=== PATIENT | female | born 1975 | race Caucasian/White ===

== ENCOUNTER 2025-06-06 11:01 | Emergency (ER) | payer SELFPAY ==
[2025-06-06 11:04] VITALS: BP 142/94; PULSE 74; TEMP 36.6; O2SAT 100; BMI 44.6
--- NOTE | 2025-06-06 11:04 | ECG_ITS ---
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 Measurements Intervals [place] Rate: 73 P: 52 MI: 181 QRS: 26 QRSD: 88 T: 55 QT: 389 QTc: 431 Interpretive Statements SINUS RHYTHM No previous ECG available for comparison Electronically Signed On 06-08-2025 22:29:15 SUPPOSITORY MOLDING MACHINE OPERATOR by Brenden Herrera M.D. [id number] [email or web address]
--- NOTE | 2025-06-06 11:04 | XR_ITS ---
WS: [id number] XR chest 1V portable [id number] REASON FOR EXAM: cp FINDINGS: The heart and the mediastinum are within normal limits. Calcified granulomatous disease bilaterally. No acute pulmonary parenchymal or pleural abnormality. Bony thorax is intact without significant focal abnormality. XR/XR chest 1V portable [id number] IMPRESSION: No acute chest abnormality.
--- NOTE | 2025-06-06 11:26 | W.ED.CHESTPA ---
HPI - Chest Pain General: Chief Complaint: Chest Pain Stated Complaint: cp, headache Time Seen by Provider: 06/06/25 11:23 Source: patient Mode of arrival: ambulatory Limitations: no limitations History of Present Illness: 50-year-old female states that she started having some chest pain while headache began an hour ago. States that patient's pain is a 8 out of 10. Denies any fevers. States she has been under a lot of stress. She denies any shortness of breath denies any fevers. Related Data Allergies Allergy/AdvReac Type Severity Reaction Status Date / Time azithromycin Allergy Unknown Verified 06/06/25 11:20 duloxetine Allergy Unknown Verified 06/06/25 11:20 erythromycin base Allergy Unknown Verified 06/06/25 11:20 Gadolinium-Containing Allergy Unknown Verified 06/06/25 11:20 Contrast Medi influenza A (H1N1) virus Allergy Unknown Verified 06/06/25 11:20 vaccine [id number] 2008 (From influenza A (H1N1)) Iodinated Contrast Media Allergy Unknown Verified 06/06/25 11:20 lactase Allergy Unknown Verified 06/06/25 11:20 latex Allergy Unknown Verified 06/06/25 11:20 metoclopramide Allergy Unknown Verified 06/06/25 11:20 montelukast Allergy Unknown Verified 06/06/25 11:20 nitroglycerin Allergy Unknown Verified 06/06/25 11:20 NSAIDS (Non-Steroidal Allergy Unknown Verified 06/06/25 11:20 Anti-Inflamma Penicillins Allergy Unknown Verified 06/06/25 11:20 prochlorperazine Allergy Unknown Verified 06/06/25 11:20 shellfish derived Allergy Unknown Verified 06/06/25 11:20 tapentadol Allergy Unknown Verified 06/06/25 11:20 Review of Systems Card: Reports: chest pain Physical Exam Const: COMMON NORMALS: no acute distress, patient oriented x3 and healthy appearing HENMT: COMMON NORMALS: normocephalic and atraumatic HEAD & SCALP: normocephalic and atraumatic Eye: COMMON NORMALS: Equal, round and reactive pupils present and EOMs intact bilaterally PUPIL: Yes Equal, round and reactive pupils present Neck/C-Spine: COMMON NORMALS: full ROM and supple Chest: COMMONS NORMALS: normal inspection of the chest and normal palpation of entire chest wall Resp: COMMON NORMALS: normal respiratory effort, No retractions, No use of accessory muscles and clear to auscultation bilaterally AUSCULTATION: clear to auscultation bilaterally Cardio: COMMON NORMALS: regular rate, regular rhythm and No murmurs present (Cardio) RATE: regular rate RHYTHM: regular rhythm GI: COMMON NORMALS: Normal to inspection, nondistended, normoactive bowel sounds present, Soft to palpation, non-tender and no masses PALPATION: Yes Soft to palpation Extremity: COMMON NORMALS: normal to inspection and full ROM Neuro: COMMON NORMALS: patient oriented x3, moves all extremities and no focal motor deficits Psych: COMMON NORMALS: mental status grossly normal, Normal thought process present and cooperative THOUGHT PROCESS: Normal thought process present Skin: COMMON NORMALS: no rashes or lesions noted and no wounds GENERAL SKIN EXAM: no rashes or lesions noted Course Vital Signs: Vital signs: Vital Signs Temperature 97.8 F 06/06/25 11:04 Pulse Rate 74 06/06/25 11:04 Blood Pressure 142/94 06/06/25 11:04 Pulse Oximetry 100 06/06/25 11:04 Oxygen Delivery Me thod Room Air 06/06/25 11:04 MDM - Chest Pain Medical Decision Making Patient presents here with chest pain differential includes ACS, pneumonia, pneumothorax, aortic dissection. Chest x-ray here was interpreted by me showed no acute abnormalities. Her troponins here have been negative and so is her EKGs. Her pain is very atypical in nature she has been under a lot of stress and is currently homeless. Her pain here has resolved. I did go over all these findings with her she is stable for discharge we will discharge her to the crisis stabilization unit. EKG interpreted by me at 1110 normal sinus rhythm heart rate [address] elevation QRS 88 QTc 415 Second EKG interpreted by me at 1256 normal sinus rhythm heart rate [address] elevation QRS 74 QTc 418 Medical Records I reviewed the patient's medical records. Lab Data I reviewed the patient's lab results. 06/06/25 11:31 06/06/25 11:31 Radiology Impressions Chest X-Ray 06/06/25 11:04 IMPRESSION: No acute chest abnormality. Laboratory Results WBC 9.09 10^3/uL (3.29-11.43) 06/06/25 11:31 RBC 5.18 10^6/uL (3.85-5.65) 06/06/25 11:31 Hgb 14.20 g/dL (11.27-16.99) 06/06/25 11:31 Hct 44.4 % (36-47) 06/06/25 11:31 MCV 85.7 fl (85-98) 06/06/25 11:31 MCH 27.4 pg (27-33) 06/06/25 11:31 MCHC 32.0 g/dL (30-55) 06/06/25 11:31 RDW 14.4 % (12.1-15.1) 06/06/25 11:31 Plt Count 298 10^3/cmm (157-399) 06/06/25 11:31 MPV 9.2 fL (7.4-10.4) 06/06/25 11:31 Neut % (Auto) 76.2 % 06/06/25 11:31 Lymph % (Auto) 16.4 % 06/06/25 11:31 Pine % (Auto) 5.4 % 06/06/25 11:31 Eos % (Auto) 1.2 % 06/06/25 11:31 Baso % (Auto) 0.6 % 06/06/25 11:31 Neut # (Auto) 6.93 10^3/uL (1.8-7.7) 06/06/25 11:31 Lymph # (Auto) 1.5 10^3/uL (0.8-4.8) 06/06/25 11:31 Pine # (Auto) 0.5 10^3/uL (0.2-0.9) 06/06/25 11:31 Eos # (Auto) 0.1 10^3/uL (0.0-0.8) 06/06/25 11:31 Baso # (Auto) 0.1 10^3/uL (0.0-0.1) 06/06/25 11:31 Nucleated RBC % (auto) 0 % 06/06/25 11:31 Nucleated RBCs # 0.0 /100WBC 06/06/25 11:31 PT 13.20 SECONDS (12.1-14.9) 06/06/25 11:31 INR 0.93 (0.8-1.2) 06/06/25 11:31 Sodium 138 mmol/L (136-145) 06/06/25 11:31 Potassium 4.1 mmol/L (3.5-5.1) 06/06/25 11:31 Chloride 104 mmol/L (98-107) 06/06/25 11:31 Carbon Dioxide 25 mmol/L (22-29) 06/06/25 11:31 Anion Gap 13.1 (5-19) 06/06/25 11:31 BUN 10 mg/dL (6-20) 06/06/25 11:31 Creatinine 0.6 mg/dL (0.5-0.9) 06/06/25 11:31 GFR Calculation 106.3 mL/min (90-130) 06/06/25 11:31 Glucose 99 mg/dL (65-115) 06/06/25 11:31 Calculated Osmolality 285 mOsm/kg (285-295) 06/06/25 11:31 Calcium 9.4 mg/dL (8.5-10.5) 06/06/25 11:31 Total Bilirubin 0.4 mg/dL (0.15-1.2) 06/06/25 11:31 AST 15 U/L (0-32) 06/06/25 11:31 ALT 10 U/L (0-33) 06/06/25 11:31 Alkaline Phosphatase 100 U/L (35-105) 06/06/25 11:31 Troponin T Baseline < 6 ng/L (0-10) 06/06/25 11:31 Troponin T 120 Minute < 6.0 ng/L (0-10) 06/06/25 13:22 Delta Troponin T 0 ABS# (0-10) 06/06/25 13:22 Total Protein 7.6 g/dL (6.6-8.7) 06/06/25 11:31 Albumin 4.7 g/dL (3.5-5.2) 06/06/25 11:31 Globulin 2.9 g/dL (1.3-4.6) 06/06/25 11:31 Lipase 43 U/L (13-60) 06/06/25 11:31 All radiology interpretation(s) finalized by discharge Discharge Plan Discharge Patient Disposition: Home Clinical Impression: Atypical chest pain Condition: Stable Discharge Orders: Discharge ED (Routine); Ordered 06/06/25 Ordered By: Mir Multani Discharge Diet: Advance as tolerated Discharge Activity: Resume usual activity Patient Instructions: Chest Pain (ED) Print Language: Algerian Coding Level of Care Code ED 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
[2025-06-06 11:46] LABS: Hematocrit 44.4 % (36-47); Hemoglobin 14.20 g/dL (11.27-16.99); Mean Corpuscular HGB Conc 32.0 g/dL (30-55); Mean Corpuscular Hemoglobin 27.4 pg (27-33); Mean Corpuscular Volume 85.7 fl (85-98); Nucleated Red Blood Cells % 0 %; Platelet Count 298 10^3/cmm (157-399); Red Blood Count 5.18 10^6/uL (3.85-5.65); White Blood Count 9.09 10^3/uL (3.29-11.43)
[2025-06-06] MEDS: ondansetron 2 mg/ML SDV 2 mL 4 MG IVP (11:56)
[2025-06-06] MEDS: morphine 4 mg/mL SDV 1 mL IVP (11:56)
[2025-06-06 12:01] LABS: INR 0.93 (0.8-1.2); Prothrombin Time 13.20 SECONDS (12.1-14.9)
[2025-06-06 12:06] LABS: Troponin(5th) Baseline < 6 ng/L (0-10)
[2025-06-06 12:16] LABS: Alanine Aminotransferase 10 U/L (0-33); Albumin Level 4.7 g/dL (3.5-5.2); Alkaline Phosphatase 100 U/L (35-105); Anion Gap 13.1 (5-19); Aspartate Amino Transferase 15 U/L (0-32); Blood Urea Nitrogen 10 mg/dL (6-20); Calcium 9.4 mg/dL (8.5-10.5); Carbon Dioxide 25 mmol/L (22-29); Chloride 104 mmol/L (98-107); Globulin 2.9 g/dL (1.3-4.6); Glucose 99 mg/dL (65-115); Lipase 43 U/L (13-60); Osmolality Calculated 285 mOsm/kg (285-295); Potassium 4.1 mmol/L (3.5-5.1); Sodium 138 mmol/L (136-145); Total Protein 7.6 g/dL (6.6-8.7)
--- NOTE | 2025-06-06 13:04 | ECG_ITS ---
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 Measurements Intervals [place] Rate: 71 P: 60 MI: 199 QRS: 27 QRSD: 74 T: 44 QT: 395 QTc: 432 Interpretive Statements SINUS RHYTHM Compared to ECG 06/06/2025 11:10:16 No significant changes Electronically Signed On 06-09-2025 18:18:05 MILL REPRESENTATIVE by Janis Ramírez M.D. [email or web address]
[2025-06-06 13:59] VITALS: BP 136/91; PULSE 74; RESP 15; O2SAT 97
[2025-06-06 14:00] VITALS: BP 136/91; PULSE 71; O2SAT 98
== END 2025-06-06 14:09 | disposition home or self-care (01) ==
PROVIDERS: Emergency Provider Emergency Medicine
DX: R07.89 Other chest pain (principal)
CPT/HCPCS: 36415; 71045; 80053; 83690; 84484; 85025; 85610; 93005; 96374; 96375; 99285; J2270; J2405

== ENCOUNTER 2025-06-06 22:09 | Emergency (ER) | payer SELFPAY ==
--- OUTSIDE RECORDS SUMMARY | 2024-04-19 05:20 | XMS_ITS ---
Author Organization [facility] [address] Address [address] [facility] [address] [place] [address] Care Team Providers Care Telephone Lines Repairer Name Role Phone Sunni Ramon Primary Care Provider Benoit Chance [phone] REASON FOR VISIT No Physical Therapy Social History Sex Assigned At : Social History Observation Description Sex Assigned At Female Encounters Encounter Location Date Provider Diagnosis [facility] [address] [facility] [place] [address] 04/19/2024 Benoit Patton Plan Of Treatment No Information Progress Notes * Wily SWANSONOB:1975 (50 yo F)Acc No.[id number]:04/19/2024 Progress Note Patient: Georgia Hong Provider: GIANNI Wilcox :1975 A ge:48 Y S ex:Female Date:04/19/2024 Address:[address] [place], [place] [id number] Pcp:Sunni Ramon Subjective: * Chief Complaints: * N o Physical Therapy Billing Information: * Procedure Codes: * Electronic signature of TRICE Mathis on 06/06/2025 at 11:25 PM EST Sign off status: Pending * Provider: GIANNI Wilcox Date: Generated for Printi ng/Faxing/eTransmitting on: 08/07/2024 11:25 PM EST
--- OUTSIDE RECORDS SUMMARY | 2024-06-16 07:30 | XMS_ITS ---
Author Organization [facility] Address [address] [place] [address] Care Team Providers Care Newspaper Delivery Counselor Name Role Phone Benedicto Talley MD Unavailable Unavailable Migration, Provider Unavailable Unavailable REASON FOR VISIT Follow Up Visit Encounters Encounter Location Date Provider Diagnosis [facility] [address] [place] [address] 06/16/2024 Provider Migration Plan Of Treatment No Information Progress Notes * Georgia ARAGONDOB:[birth year] (50 yo F)Acc No.[id number]:06/16/2024 Progress Notes Patient: Geo godinezGeorgia Provider: Km Frank :1975 A ge:49 Y S ex:Female Date:06/16/2024 Address:[address] [place] [address] Subjective: * Chief Complaints: * F ollow Up Visit * Electronic signature of Prov ider Migration on 06/06/2025 at 11:22 PM EST Sign off status: Pending * Provider: Km to Migration Date: 1 08/17/2023 Generated for Xenia valdez/Fabio/eTransmitting on: 08/07/2024 11:22 PM EST
--- OUTSIDE RECORDS SUMMARY | 2024-07-08 04:10 | XMS_ITS ---
Author Organization [facility] [address] Address [address] [facility] [address] [place] [address] Care Team Providers Care Executive Vice President And Chief Financial Officer Name Role Phone Sunni Ramon Primary Care Provider Benoit Chance [phone] REASON FOR VISIT Pt Personal Reasons Social History Sex Assigned At : Social History Observation Description Sex Assigned At Female Encounters Encounter Location Date Provider Diagnosis [facility] [address] [place] [address] 07/08/2024 Benoit Patton Plan Of Treatment No Information Progress Notes * Wily SWANSONOB:1975 (50 yo F)Acc No.[id number]:07/08/2024 Progress Note Patient: Georgia Hong Provider: GIANNI Wilcox :1975 A ge:49 Y S ex:Female Date:07/08/2024 Address:[address] [place], [place] [phone] Pcp:Sunni Ramon Subjective: * Chief Complaints: * P t Personal Reasons Billing Information: * Procedure Codes: * Electronic signature of TRICE Mathis on 06/06/2025 at 11:26 PM EST Sign off status: Pending * Provider: GIANNI Wilcox Date: 0 07/08/2024 Generated for Printi ng/Faxing/eTransmitting on: 1 08/07/2024 11:26 PM EST
--- OUTSIDE RECORDS SUMMARY | 2024-08-02 05:00 | XMS_ITS ---
Author Organization [facility] Address [address] [place] [address] Care Team Providers Care Retail Field Supervisor Name Role Phone Benedicto Talley MD Unavailable [...] 08/02/2024 Encounters Encounter Location Date Provider Diagnosis [facility] [address] [place] [address] 08/02/2024 Provider Migration Plan Of Treatment No Information Progress Notes * Georgia ARAGONDOB:[birth year] (50 yo F)Acc No.[id number]:08/02/2024 Progress Notes Patient: Geo Georgia godinez Provider: Km Frank :1975 A ge:49 Y S ex:Female Date:08/02/2024 Address:[address] [place], [place] [phone] Subjective: * Chief Complaints: * O ffice Visit Objective: * Vitals: B P: 102/72 mm Hg, HR: 88 /min, Temp: 98.10 F, Oxygen sat %: 99 %, Wt: 253.0000 lbs, Wt-k.76 kg, Ht: 64.00 in, Ht-cm: 162.56 cm, BMI: 43.42 Index. Plan: * Procedure Codes: 3 078F DIAST BP < 80 MM [id number] SYST BP LT 130 MM [id number] BODY MASS INDEX DOCD Billing Information: * Procedure Codes: 3078F DIAST BP < 80 MM HG. 3074F SYST BP LT 130 MM HG. 3008F BODY MASS INDEX DOCD. * Electronic signature of Prov ider Migration on 06/06/2025 at 11:23 PM EST Sign off status: Pending * Provider: Km to Migration Date: 0 08/02/2024 Generated for Xenia valdez/Fabio/Maude on: 1 08/07/2024 11:23 PM EST
--- OUTSIDE RECORDS SUMMARY | 2024-09-06 03:30 | XMS_ITS ---
Author Organization [facility] Address [address] [place] [address] Care Team Providers Care Clinical Rehabilitation Aide Name Role Phone Benedicto Talley MD Unavailable [...] 09/06/2024 Encounters Encounter Location Date Provider Diagnosis [facility] [address] [place] [address] 09/06/2024 Provider Migration Plan Of Treatment No Information Progress Notes * Georgia ARAGONDOB:[birth year] (50 yo F)Acc No.[id number]:09/06/2024 Progress Notes Patient: Geo Georgia godinez Provider: Km to Migration :1975 A ge:49 Y S ex:Female Date:09/06/2024 Address:[address] [place], [place] [phone] Subjective: * Chief Complaints: * F ollow [...] of Prov ider Migration on 06/06/2025 at 11:34 PM EST Sign off status: Pending * Provider: Km to Migration Date: 0 09/06/2024 Generated for Xenia valdez/Fabio/Rolandoitting on: 1 08/07/2024 11:34 PM EST
--- OUTSIDE RECORDS SUMMARY | 2024-10-02 04:45 | XMS_ITS ---
Author Organization Replaced By [facility] are Address [address] [place] [address] Care Team Providers Care Pharmacy Clinical Coordinator Name Role Phone Tristen Trish Sunni Primary Care Provider [phone] Benedicto Talley MD Unavailable Unavailable DR. Benedicto Talley Unavailable [phone] REASON FOR VISIT Walk-in Appointment Vital Signs Temperature 98.40 degrees Fahrenheit 025 Blood pressure systolic 130 mm Hg 10/03/19 25 Blood pressure diastolic 78 mm Hg 025 Heart Rate 85 /min 10/02/2024 Height 64.00 in 10/02/2024 Weight 250.2000 lbs 10/02/2024 BMI 42.94 kg/m2 10/02/2024 Oximetry 99 % 10/02/2024 Height-cm 162.56 cm 10/02/2024 Weight-kg 113.49 kg 10/02/2024 Encounters Encounter Location Date Provider Diagnosis [facility] [address] [address] 10/02/2024 Benedicto Talley Plan Of Treatment No Information Progress Notes * Georgia ARAGONDOB:[birth year] (50 yo F)Acc No.[id number]:10/02/2024 Progress Notes Patient: Geo godinez Georgia Meza Provider: Georgia Talley MD :1975 A ge:49 Y S ex:Female Date:10/02/2024 Address:[address] [place], [place] [phone] Pcp:MRS. Sunni Ramon Subjective: * Chief Complaints: * W alk-in Appointment Objective: * Vitals: B P: 130/78 mm Hg, HR: 85 /min, Temp: 98.40 F, Oxygen sat %: 99 %, Wt: 250.2000 lbs, Wt-k.49 kg, Ht: 64.00 in, Ht-cm: 162.56 cm, BMI: 42.94 Index. * Electronic signature of DR. Benedicto Talley MD on 06/06/2025 at 11:34 PM EST Sign off status: Pending * Provider: Georgia Talley MD Date: 0 10/02/2024 Generated for Xenia valdez/Fabio/Rolandoitting on: 1 08/07/2024 11:34 PM EST
--- OUTSIDE RECORDS SUMMARY | 2024-10-02 04:45 | XMS_ITS ---
Author Organization [facility] Address [address] [place] [address] Care Team Providers Care Technical Support Technician Name Role Phone Benedicto Talley MD Unavailable Unavailable DR. Benedicto Talley Unavailable [phone] REASON FOR VISIT Walk-in Appointment Vital Signs Temperature 98.40 degrees Fahrenheit 025 Blood pressure systolic 130 mm Hg 10/03/19 25 Blood pressure diastolic 78 mm Hg 025 Heart Rate 85 /min 10/02/2024 Height 64.00 in 10/02/2024 Weight 250.2000 lbs 10/02/2024 BMI 42.94 kg/m2 10/02/2024 Oximetry 99 % 10/02/2024 Height-cm 162.56 cm 10/02/2024 Weight-kg 113.49 kg 10/02/2024 Encounters Encounter Location Date Provider Diagnosis [facility] [address] [place] [address] 10/02/2024 Benedicto Talley Plan Of Treatment No Information Progress Notes * Georgia ARAGONDOB:[birth year] (50 yo F)Acc No.[id number]:10/02/2024 Patient: Geo godinez Georgia Meza Provider: Georgia Talley MD :1975 A ge:49 Y S ex:Female Date:10/02/2024 Address:[address] [place], [place] [phone] Subjective: * Chief Complaints: * W alk-in Appointment Objective: * Vitals: B P: 130/78 mm Hg, HR: 85 /min, Temp: 98.40 F, Oxygen sat %: 99 %, Wt: 250.2000 lbs, Wt-k.49 kg, Ht: 64.00 in, Ht-cm: 162.56 cm, BMI: 42.94 Index. * Electronic signature of DR. Benedicto Talley MD on 06/06/2025 at 11:26 PM EST Sign off status: Pending * Provider: Georgia Talley MD Date: 0 10/02/2024 Generated for Xenia valdez/Fabio/Rolandoitting on: 1 08/07/2024 11:26 PM EST
--- OUTSIDE RECORDS SUMMARY | 2024-10-05 03:00 | XMS_ITS ---
Author Organization [facility] are Address [address] [place] [address] Care Team Providers Care Telephone Lines Repairer Name Role Phone MRS. Sunni Ramon Primary Care Provider Benedicto Talley MD Unavailable Unavailable Results Component Value Reference Range Notes BLOOD GLUCOSE-HOME MONITOR ( 19166) Reviewed date:10/05/2024 12:00:00 AM Interpretation: Performing Lab: Notes/Report: BLOOD GLUCOSE-HOME MONITOR 83 NR URINALYSIS W/O MICROSCOPY (8 1002) Reviewed date:10/05/2024 12:00:00 AM Interpretation: Performing [...] Vaccine Route Administration [place] 50758 TDAP IM Intramuscular 10/05/2024 Pending ,Immuniz ationName,' : Tdap (7 years and up) (35358) ,Status,' : Ordered Vital Signs Temperature 98.50 degrees Fahrenheit 025 Blood pressure systolic 120 mm Hg 10/06/19 25 Blood pressure diastolic 80 mm Hg 025 Heart Rate 76 /min 10/05/2024 Height 64.00 in 10/05/2024 Weight 243.6000 lbs 10/05/2024 BMI 41.81 kg/m2 10/05/2024 Oximetry 99 % 10/05/2024 Height-cm 162.56 cm 10/05/2024 Weight-kg 110.50 kg 10/05/2024 Encounters Encounter Location Date Provider Diagnosis [facility] [address] [place] [address] 10/05/2024 Sunni Ramon Plan Of Treatment No Information Progress Notes * Georgia ARAGON JDOB:[birth year] (50 yo F)Acc No.[id number]:10/05/2024 Progress Notes Patient: Georgia Hong Provider: CITLALLI Delgado :1975 A ge:49 Y S ex:Female Date:10/05/2024 Address:[address] [place], [place] [phone] Subjective: * Chief Complaints: * A nnual Physical * Ocular Surgical History: Objective: * Vitals: B P: 120/80 mm Hg, HR: 76 /min, Temp: 98.50 F, Oxygen sat %: 99 %, Wt: 243.6000 lbs, Wt-k.50 kg, Ht: 64.00 in, Ht-cm: 162.56 cm, BMI: 41.81 Index. Vision Examination: Plan: * Treatment: Value Reference Range B LOOD GLUCOSE-HOME MONITOR 83 NR ?LAB: URINALYSIS W/O MICROSCOPY (04784) (Collection Date & Time - 10/05/2024)* Value [...] - URINE SEDIMENT x NR * Immunizations: 08033 TDAP (Route: Intramuscular) (Pending) * Labs: * L ab: BLOOD GLUCOSE-HOME MONITOR (49333) (Collection Date & Time - 10/05/2024) Value Reference Range B LOOD GLUCOSE-HOME MONITOR 83 NR * BLOOD GLUCOSE-HOME MONITOR: AbnormalFlags: N ?Lab: URINALYSIS W/O MICROSCOPY (39036) (Collection Date & Time - 10/05/2024)* Value [...] N * Procedure Codes: 9 0471 IMMUNIZATION [id number] TDAP VACCINE >7 [id number] DIAST BP 80-89 MM [id number] SYST BP LT 130 MM AD4701I BODY MASS INDEX [id number] BRIEF EMOTIONAL/BEHAV ASSMT Billing Information: * Procedure Codes: 12267 IMMUNIZATION ADMIN. 06810 TDAP VACCINE >7 IM. 3079F DIAST BP 80-89 MM HG. 3074F SYST BP LT 130 MM HG. 3008F BODY MASS INDEX DOCD. 71881 BRIEF EMOTIONAL/BEHAV ASSMT. * Electronic signature of MRS. Moeller GIANNI Ramon on 06/06/2025 at 11:29 PM EST Sign off status: Pending * Provider: CITLALLI Delgado Date: 0 10/05/2024 Generated for Xenia valdez/Fabio/Maude on: 1 08/07/2024 11:29 PM EST
--- OUTSIDE RECORDS SUMMARY | 2024-10-05 03:00 | XMS_ITS ---
Author Organization [facility] Address [address] [place] [address] Care Team Providers Care E Commerce Web Developer Name Role Phone Benedicto Talley MD Unavailable Unavailable Migration, Provider Unavailable Unavailable REASON FOR VISIT Annual Physical Immunizations Vaccine [place] [address] Tdap OTH Other/Miscellaneous 10/05/2024 Pending ,ImmunizationName,' : Tdap (7 years and up) (26236) ,Status,' : Ordered Source Location: <Undefined> Vital Signs Temperature 98.50 degrees Fahrenheit 025 Blood pressure systolic 120 mm Hg 10/06/19 25 Blood pressure diastolic 80 mm Hg 025 Heart Rate 76 /min 10/05/2024 Height 64.00 in 10/05/2024 Weight 243.6000 lbs 10/05/2024 BMI 41.81 kg/m2 10/05/2024 Oximetry 99 % 10/05/2024 Height-cm 162.56 cm 10/05/2024 Weight-kg 110.50 kg 10/05/2024 Encounters Encounter Location Date Provider Diagnosis [facility] [address] [place] [address] 10/05/2024 Provider Migration Plan Of Treatment No Information Progress Notes * Georgia ARAGONDOB:[birth year] (50 yo F)Acc No.[id number]:10/05/2024 Progress Notes Patient: Geo Georgia godinez Provider: Km to Migration :1975 A ge:49 Y S ex:Female Date:10/05/2024 Address:[address] [place], [place] [phone] Subjective: * Chief Complaints: * A nnual Physical * Ocular Surgical History: Objective: * Vitals: B P: 120/80 mm Hg, HR: 76 /min, Temp: 98.50 F, Oxygen sat %: 99 %, Wt: 243.6000 lbs, Wt-k.50 kg, Ht: 64.00 in, Ht-cm: 162.56 cm, BMI: 41.81 Index. Vision Examination: Plan: * Immunizations: 58270 Tdap (Route: Other/Miscellaneous) (Pending) * Procedure Codes: 9 0471 IMMUNIZATION [id number] TDAP VACCINE >7 [id number] DIAST BP 80-89 MM CU0788S SYST BP LT 130 MM DH2055C BODY MASS INDEX [id number] BRIEF EMOTIONAL/BEHAV ASSMT Billing Information: * Procedure Codes: 17941 IMMUNIZATION ADMIN. 62081 TDAP VACCINE >7 IM. 3079F DIAST BP 80-89 MM HG. 3074F SYST BP LT 130 MM HG. 3008F BODY MASS INDEX DOCD. 05515 BRIEF EMOTIONAL/BEHAV ASSMT. * Electronic signature of Prov ider Migration on 06/06/2025 at 11:31 PM EST Sign off status: Pending * Provider: Km to Migration Date: 0 10/05/2024 Generated for Xenia valdez/Fabio/Rolandoitting on: 1 08/07/2024 11:31 PM EST
--- OUTSIDE RECORDS SUMMARY | 2024-10-05 04:10 | XMS_ITS ---
Author Organization [facility] Address [address] [facility] [address] [place] [address] Care Team Providers Care Cardiology Nurse Name Role Phone Snuni Ramon Primary Care Provider Benoit Chance [phone] REASON FOR VISIT C Misc Reason Medications [...] Female Encounters Encounter Location Date Provider Diagnosis [facility] [address] [facility] [place] [address] 10/05/2024 Benoit Patton Plan Of Treatment No Information Progress Notes * Wily SWANSONOB:1975 (50 yo F)Acc No.[id number]:10/05/2024 Progress Note Patient: Georgia Hong Provider: GIANNI Wilcox :1975 A ge:49 Y S ex:Female Date:10/05/2024 Address:[address] [place], [place] [phone] Pcp:Snuni Ramon Subjective: * Chief Complaints: * C [...] signature of TRICE Mathis on 06/06/2025 at 01:06 PM EST Sign off status: Pending * Provider: GIANNI Wilcox Date: 0 10/05/2024 Generated for Xenia Munoz/Maude on: 1 08/07/2024 01:06 PM EST
--- OUTSIDE RECORDS SUMMARY | 2024-10-14 04:00 | XMS_ITS ---
Author Organization [facility] are Address [address] [place] [address] Care Team Providers Care Scrap Carrier Name Role Phone MRS. Sunni Ramon Primary Care Provider Benedicto Talley MD Unavailable REASON FOR VISIT Annual Physical Encounters Encounter Location Date Provider Diagnosis [facility] [address] [place] [address] 10/14/2024 Sunni Ramon Plan Of Treatment No Information Progress Notes * SWANSON, [place] JDOB:[birth year] (50 yo F)Acc No.[id number]:10/14/2024 Progress Notes Patient: [place] Hong Provider: CITLALLI Delgado :1975 A ge:49 Y S ex:Female Date:10/14/2024 Address:[address] [place] [address] Subjective: * Chief Complaints: * A nnual Physical * Ocular Surgical History: Objective: Vision Examination: * Electronic signature of MRS. Moeller GIANNI Ramon on 06/06/2025 at 11:34 PM EST Sign off status: Pending * Provider: CITLALLI Delgado Date: 0 10/14/2024 Generated for Xenia valdez/Fabio/eTransmitting on: 1 08/07/2024 11:34 PM EST
--- OUTSIDE RECORDS SUMMARY | 2024-10-14 04:00 | XMS_ITS ---
[facility] Organization [facility] Address [address] [place] [address] Care Team Providers Care Mine Foreman Name Role Phone Benedicto Talley MD Unavailable Unavailable Migration, Provider Unavailable Unavailable REASON FOR VISIT Annual Physical Encounters Encounter Location Date Provider Diagnosis [facility] [address] [place] [address] 10/14/2024 Provider Migration Plan Of Treatment No Information Progress Notes * [place] ARAGONDOB:[birth year] (50 yo F)Acc No.[id number]:10/14/2024 Progress Notes Patient: Geo godinezGeorgia Provider: Km Frank :1975 A ge:49 Y S ex:Female Date:10/14/2024 Address:[address] [place] [address] Subjective: * Chief Complaints: * A nnual Physical * Ocular Surgical History: Objective: Vision Examination: * Electronic signature of Prov ider Migration on 06/06/2025 at 11:31 PM EST Sign off status: Pending * Provider: Km to Migration Date: 0 10/14/2024 Generated for Xenia valdez/Fabio/Maude on: 1 08/07/2024 11:31 PM EST
--- OUTSIDE RECORDS SUMMARY | 2024-11-04 03:00 | XMS_ITS ---
Author Organization [facility] are Address [address] [place] [address] Care Team Providers Care Real Estate Firm Manager Name Role Phone RamonMRS. ирина Sunni Primary [...] 11/04/2024 Encounters Encounter Location Date Provider Diagnosis [facility]placed [facility] [address] [place] [address] 11/04/2024 Sunni Ramon Plan Of Treatment No Information Progress Notes * [place] ARAGONDOB:[birth year] (50 yo F)Acc No.[id number]:11/04/2024 Progress Notes Patient: Geo godinez [place] Susana Provider: CITLALLI Delgado :1975 A ge:49 Y S ex:Female Date:11/04/2024 Address:[address] [place] [phone] Subjective: * Chief Complaints: * F ollow Up Visit Objective: * Vitals: B P: 122/84 mm Hg, HR: 90 /min, Temp: 98.40 F, Oxygen sat %: 97 %, Wt: 239.0000 lbs, Wt-k.41 kg, Ht: 64.00 in, Ht-cm: 162.56 cm, BMI: 41.02 Index. Plan: * Procedure Codes: 3 079F DIAST BP 80-89 MM [id number] SYST BP LT 130 MM [id number] BODY MASS INDEX DOCD Billing Information: * Procedure Codes: 3079F DIAST BP 80-89 MM HG. 3074F SYST BP LT 130 MM HG. 3008F BODY MASS INDEX DOCD. * Electronic signature of GIANNI Porter on 06/06/2025 at 11:29 PM EST Sign off status: Pending * Provider: CITLALLI Delgado Date: 0 11/04/2024 Generated for Xenia valdez/Fabio/Rolandoitting on: 1 08/07/2024 11:29 PM EST
--- OUTSIDE RECORDS SUMMARY | 2025-01-06 03:30 | XMS_ITS ---
Author Organization [facility] are Address [address] [place] [address] Care Team Providers Care Customer Program Manager Name Role Phone MRS. Sunni Ramon Primary Care Provider Benedicto Talley MD Unavailable REASON FOR VISIT Follow Up Visit Encounters Encounter Location Date Provider Diagnosis [facility] [address] [place] [address] 01/06/2025 Sunni Ramon Plan Of Treatment No Information Progress Notes * SWANSONGeorgiaDOB:[birth year] (50 yo F)Acc No.[id number]:01/06/2025 Progress Notes Patient: Georgia Hong Provider: CITLALLI Delgado :1975 A ge:49 Y S ex:Female Date:01/06/2025 Address:[address] [place], [place] [phone] Subjective: * Chief Complaints: * F ollow Up Visit * Electronic signature of MRS. Moeller GIANNI Ramon on 06/06/2025 at 11:21 PM EST Sign off status: Pending * Provider: CITLALLI Delgado Date: 0 01/06/2025 Generated for Xenia valdez/Fabio/eTransmitting on: 1 08/07/2024 11:21 PM EST
--- OUTSIDE RECORDS SUMMARY | 2025-01-06 03:30 | XMS_ITS ---
Author Organization [facility] Address [address] [place] [address] Care Team Providers Care Inspector Printed Circuit Boards Name Role Phone eBnedicto Talley MD Unavailable Unavailable Migration, Provider Unavailable Unavailable REASON FOR VISIT Follow Up Visit Encounters Encounter Location Date Provider Diagnosis [facility] [address] [place] [address] 01/06/2025 Provider Migration Plan Of Treatment No Information Progress Notes * Georgia ARAGONDOB:[birth year] (50 yo F)Acc No.[id number]:01/06/2025 Progress Notes Patient: Geo godinezGeorgia Provider: Km Frank :1975 A ge:49 Y S ex:Female Date:01/06/2025 Address:[address] [place] [address] Subjective: * Chief Complaints: * F ollow Up Visit * Electronic signature of Prov ider Migration on 06/06/2025 at 11:32 PM EST Sign off status: Pending * Provider: Km to Migration Date: 0 01/06/2025 Generated for Xenia valdez/Fabio/eTransmitting on: 1 08/07/2024 11:32 PM EST
--- OUTSIDE RECORDS SUMMARY | 2025-02-26 03:00 | XMS_ITS ---
Author Organization [facility] are Address [address] [place] [address] Care Team Providers Care Children'S Literature Professor Name Role Phone MRS. Sunni Ramon Primary Care Provider Benedicto Talley MD Unavailable Unavailable Migration, Provider Unavailable Unavailable REASON FOR VISIT EMR-Héctor Encounters Encounter Location Date Provider Diagnosis [facility] [address] [place] [address] 02/26/2025 Provider Migration Plan Of Treatment Medication Medication Name Sig Start Date Stop Date Notes promethazine 6.25mg/5 mL promethazine 6. 25mg/5 mL, 4 Milliliter every 6 hours as needed for nausea # 360, 07/24/2022, No Refill. Inactive oral every 6 hours as needed for nausea; Duration: 5 07/24/2022 3 *Reorder from [employer] for eRx and Interaction Alerts* Pravastatin 20mg pravastatin 20mg, 1 Tablet daily # 30, 09/12/2023, No Refill. Inactive oral daily; Duration: 30 09/12/2023 4 *Reorder from [employer] for eRx and Interaction Alerts* tamsulosin 0.4mg tamsulosin 0.4mg, 1 (one) Capsule daily # 7, 04/03/2022, No Refill. Inactive oral daily; Duration: 7 04/03/2022 3 *Reorder from [employer] for eRx and Interaction Alerts* Ozempic 0.25 mg or 0.5mg (2 mg/3 Ozempic 0.25 mg or 0.5mg (2 mg/3, 0.5 mg weekly # 3, 12/11/2023, No Refill. Inactive subcutaneous weekly; Duration: 28 12/11/2023 4 *Reorder from [facility] for eRx and Interaction Alerts* Ozempic 1 mg/dose(4 mg/3 mL Ozempic 1 mg/dose(4 mg/3 mL, 1 (one) mL weekly # 4, 05/07/2024, No Refill. Inactive subcutaneous weekly; Duration: 30 05/07/2024 5 *Reorder from [facility] for eRx and Interaction Alerts* cyclobenzaprine 5mg cyclobenzaprine 5mg, 1 (one) Tablet three times daily # 15, 04/03/2022, No Refill. Inactive oral three times daily; Duration: 5 04/03/2022 3 *Reorder from [facility] for eRx and Interaction Alerts* cholecalciferol (vitamin D3) 1,250 mcg(50,000 un cholecalciferol (vitamin D3) 1,250 mcg(50,000 un, 1 Capsule every week # 12, 03/11/2024, No Refill. Inactive oral every week; Duration: 84 03/11/2024 4 *Reorder from [facility] for eRx and Interaction Alerts* Lantus Solostar U-100 Insulin 100 unit/mL(3 mL) Lantus Solostar U-100 Insulin 100 unit/mL(3 mL), 20 units at bedtime # 10, 05/07/2024, Ref. x5. Inactive subcutaneous at bedtime; Duration: 30 05/07/2024 5 *Reorder from [facility] for eRx and Interaction Alerts* HumaLOG KwikPen Insulin 100unit/mL HumaLOG KwikPen Insulin 100unit/mL, 5 units subcutaneous three times a day with breakfast, lunch, and dinner # 5, 03/10/2024, Ref. x5. Inactive subcutaneous subcutaneous three times a day with breakfast, lunch, and dinner; Duration: 30 03/10/2024 4 *Reorder from [facility] for eRx and Interaction Alerts* Ozempic 2 mg/dose(8 mg/3 mL Ozempic 2 mg/dose(8 mg/3 mL, 2 (two) milligram SQ once weekly # 9, 03/14/2023, No Refill. Inactive subcutaneous SQ once weekly; Duration: 03/14/2023 3 *Reorder from [employer] for eRx and Interaction Alerts* FreeStyle Philip 2 [place] - Device FreeStyle Philip 2 [place] , 1 (one) Device as directed # 1, 03/19/2021, No Refill. Inactive as directed; Duration: 30 03/19/2021 1 Ozempic (2 MG/DOSE) 8 MG/3ML Solution Pen-injector Ozempic (2 MG/DOSE)( 8MG/3ML Subcutaneous 2 (two) SQ once weekly ) Inactive -Hx Entry Subcutaneous SQ once weekly; Duration: 02/22/2022 FreeStyle Philip 2 Sensor - Miscellaneous FreeStyle Philip 2 Sensor , 1 (one) sensor replace sensor every 14 days # 2, 03/13/2024, Ref. x5. Inactive miscellaneous replace sensor every 14 days; Duration: 28 03/13/2024 4 2 sensors per 28 days Dexcom G5 Lamination Spinner Kit Dexcom G5 Receive r Kit , 1 (one) Device as directed # 1, 11/10/2020, Ref. x11. Inactive as directed; Duration: 14 11/10/2020 1 DX: UNCONTROLLED INSULLIN DEPENDENT DIABETES Guardian Sensor (3) Guardian Sensor (3) , as directed # 90, 11/08/2020, Ref. x3. Inactive as directed; Duration: 11/08/2020 1 1YR SUPPLY Soliqua 100-33 UNT-MCG/ML Solution Pen-injector Soliqua 125-59IYN-WHK/ML, 10 units at bedtime daily for type 2 diabetes # 1, 09/04/2020, Ref. x3. Inactive Subcutaneous at bedtime daily for type 2 diabetes; Duration: 30 09/04/2020 1 Bydureon BCise 2 MG/0.85ML Auto-injector Bydureon BCise 2MG/0.85ML, 1 (one) Auto-injector weekly # 4, 08/30/2020, Ref. x6. Inactive Subcutaneous weekly; Duration: 30 08/30/2020 1 Please void Bydureon Rx, Rx for B-Cise was sent instead Dexcom G5 Mob/G4 Plat Sensor Dexcom G5 Mob/G4 Plat Sensor , 1 (one) SENSOR EVERY 2 WEEKS # 1, 11/10/2020, Ref. x6. Inactive EVERY 2 WEEKS; Duration: 14 11/10/2020 1 BD Pen Needle Micro U/F 32G X 6 MM Miscellaneous BD Pen Needle Micro U/F , 1 (one) needle to be used with Lantus insulin pen daily # 100, 04/11/2021, Ref. x2. Inactive to be used with Lantus insulin pen daily; Duration: 100 04/11/2021 1 Src Refills: 100 Trelegy Ellipta 100-62.5-25 MCG/ACT Aerosol Powder Breath Activated Trelegy Ellipta 100-62.5-25mcg, 1 inhalation daily # 28, 03/10/2024, Ref. x1. Inactive Inhalation daily; Duration: 28 03/10/2024 5 Accu-Chek Guide w/Device Kit Accu-Chek Guide , 1 (one) Kit as directed # 1, 06/19/2020, Ref. x1. Inactive as directed; Duration: 30 06/19/2020 0 Local Order: glucometer, lancets, strips. May substitute for whichever glucometer is cheapest with patient's insurance. Trulicity 1.5 MG/0.5ML Solution Pen-injector Trulicity 1.5mg/0.5 mL, 1 (one) mL once weekly # 2, 07/09/2023, Ref. x1. Inactive Subcutaneous once weekly; Duration: 28 07/09/2023 4 Weeks 1-4: 0.75mg once weekly Weeks 5-8: 1.5mg weekly + Complete Multi 0.267 & 373 MG Therapy Pack + Complete Multi 0.267 & 373MG, use as directed per instructions in pack # 1, 05/21/2019, No Refill. Inactive Oral use as directed per instructions in pack; Duration: 30 05/21/2019 0 Breo Ellipta 100-25 MCG/ACT Aerosol Powder Breath Activated Breo Ellipta 100-25mcg/dose, 1 inhalation daily # 28, 12/11/2023, No Refill. Inactive Inhalation daily; Duration: 28 12/11/2023 4 Trulicity 0.75 MG/0.5ML Solution Pen-injector Trulicity 0.75mg/0.5 mL, 1 (one) Solution Pen-injector once weekly for 4 weeks # 2, 07/09/2023, No Refill. Inactive Subcutaneous once weekly for 4 weeks; Duration: 30 07/09/2023 4 BD Pen Needle Hazel U/F 32G X 4 MM Miscellaneous BD Pen Needle Hazel U/F , 1 (one) Pen needle four times daily with meal time insulin 3x/day and basal insulin at bedtime # 120, 10/13/2020, Ref. x3. Inactive four times daily with meal time insulin 3x/day and basal insulin at bedtime; Duration: 30 10/13/2020 1 Src Refills: 120 Vimovo 500-20 MG Tablet Delayed Release Vimovo 500-20MG, 1 (one) Tablet two times daily as needed # 60, 06/14/2019, Ref. x6. Inactive Oral two times daily as needed; Duration: 30 06/14/2019 0 Bydureon 2MG Bydureon 2MG, 2 (two ) mg once weekly # 4, 08/30/2020, Ref. x5. Inactive Subcutaneous once weekly; Duration: 30 08/30/2020 *Reorder from [employer] for eRx and Interaction Alerts* Lyndsey Allergy 180MG Lyndsey Allergy 18 0MG, 1 (one) Tablet daily # 30, 10/28/2018, Ref. x6. Inactive Oral daily; Duration: 30 10/28/2018 9 *Pick strength-form from [employer] for eRX* metFORMIN HCl ER 500 MG Tablet Extended Release 24 Hour metFORMIN HCl ER 500MG, 1 (one) Tablet once daily in the morning after breakfast # 30, 06/14/2020, Ref. x5. Inactive Oral once daily in the morning after breakfast; Duration: 30 06/14/2020 0 Vitamin B 12 500MCG Vitamin B 12( 500MCG Oral 1 tablet daily ) Inactive -Hx Entry Oral daily; Duration: 0 12/08/2020 *Pick strength-form from [employer] for eRX* Dulera 100-5 MCG/ACT Aerosol Dulera 100-5mcg/actuat, 2 puffs 2 times per day # 13, 12/23/2023, Ref. x5. Inactive Inhalation 2 times per day; Duration: 30 12/23/2023 4 B-6 100MG B-6( 100MG Oral 1 da geoff ) Inactive -Hx Entry Oral daily; Duration: 0 12/24/2020 *Pick strength-form from [employer] for eRX* ZyrTEC-D Allergy & Congestion 5-120MG ZyrTEC-D Allergy & Congestion 5-120MG, 1 (one) Tablet daily # 20, 08/11/2018, No Refill. Inactive Oral daily; Duration: 20 08/11/2018 9 *Pick strength-form from [employer] for eRX* Zoloft 50MG Zoloft 50MG, 1 (one) Tablet daily # 90, 07/10/2019, Ref. x3. Inactive Oral daily; Duration: 90 07/10/2019 0 *Pick strength-form from [employer] for eRX* Ventolin HFA 108 (90 Base) MCG/ACT Aerosol Solution Ventolin HFA 108 (90 Base)MCG/ACT, 2 puffs every 4 hours PRN, 09/21/2018, No Refill. Inactive Inhalation every 4 hours PRN; Duration: 0 09/21/2018 9 Vitamin D3 50 MCG (2000 UT) Tablet Vitamin D3 50 MCG(2000 UT), 1 (one) Tablet daily # 30, 05/21/2019, No Refill. Inactive Oral daily; Duration: 30 05/21/2019 1 Vitamin B Complex - Tablet Vitamin B Complex( Oral 1 tablet daily ) Inactive -Hx Entry Oral daily; Duration: 0 07/05/2019 Zofran 4MG Zofran( 4MG Oral 1 d aily ) Inactive -Hx Entry Oral daily; Duration: 0 07/06/2019 *Reorder from [employer] for eRx and Interaction Alerts* Voltaren 1% Voltaren 1%, 2 (two) gram Apply to the affected joint(s) twice daily as needed for pain # 100, 08/11/2020, No Refill. Inactive External Apply to the affected joint(s) twice daily as needed for pain; Duration: 10 08/11/2020 1 *Pick strength-form from [employer] for eRX* Sucralfate 1 GM/10ML Suspension Sucralfate 1GM/10ML, 10 Milliliter Milliliter four times daily, do not take within 30 mins of other medications # 280, 07/02/2018, Ref. x3. Inactive Oral four times daily, do not take within 30 mins of other medications; Duration: 7 07/02/2018 9 Please discard last prescription for sucralfate. Refill after 1 week for a total duration of 4 weeks unless told otherwise by GI Src Refills: 280 Simvastatin 20 MG Tablet Simvastatin( 20 MG Oral 1 tablet daily ) Inactive -Hx Entry Oral daily; Duration: 0 07/16/2018 Topamax 50 MG Tablet Topamax 50MG, 1 (on e) Tablet daily # 30, 05/21/2019, No Refill. Inactive Oral daily; Duration: 30 05/21/2019 0 Symbicort 160-4.5 MCG/ACT Aerosol Symbicort 160-4.5MCG/ACT, 2 puffs Puff daily # 1, 08/29/2021, No Refill. Inactive Inhalation daily; Duration: 30 08/29/2021 2 traMADol HCl 50 MG Tablet TraMADol HCl 5 0MG, # 0, 07/22/2018, No Refill. Inactive Oral; Duration: 0 07/22/2018 9 Provera 10 MG Tablet Provera( 10MG Oral 1 daily ) Inactive -Hx Entry Oral daily; Duration: 0 12/08/2020 Protonix 40 MG Tablet Delayed Release Protonix( 40MG Oral 1 daily ) Inactive -Hx Entry Oral daily; Duration: 0 08/18/2019 Prevacid 30 MG Capsule Delayed Release Prevacid( 30MG Oral 1 (one) Capsule three times daily ) Inactive -Hx Entry Oral three times daily; Duration: 30 05/21/2019 Promethazine HCl 25 MG Tablet Promethazine HCl 25MG, 1 (one) Tablet every 8 hours as needed for nausea # 21, 12/09/2018, No Refill. Inactive Oral every 8 hours as needed for nausea; Duration: 7 12/09/2018 9 ProAir HFA 108 (90 Base)MCG/ACT ProAir HFA 108 (90 Base)MCG/ACT, 2 (two) Puff every 4-6 hours as needed for wheezing # 1, 11/21/2020, Ref. x2. Inactive Inhalation every 4-6 hours as needed for wheezing; Duration: 30 11/21/2020 1 *Reorder from [employer] for eRx and Interaction Alerts* Phenazopyridine HCl 200MG Phenazopyridin e HCl 200MG, 1 (one) Tablet three times daily as needed for urinary symptoms # 21, 01/04/2019, Ref. x2. Inactive Oral three times daily as needed for urinary symptoms; Duration: 7 01/04/2019 9 *Pick strength-form from [employer] for eRX* Phentermine HCl 37.5 MG Capsule Phentermine HCl 37.5MG, 1 (one) Capsule daily # 30, 03/01/2019, No Refill. Inactive Oral daily; Duration: 30 03/01/2019 9 predniSONE 50 MG Tablet predniSONE 50MG, 1 (one) Tablet daily # 5, 06/21/2021, No Refill. Inactive Oral daily; Duration: 5 06/21/2021 2 Phentermine HCl 37.5 MG Tablet Phentermine HCl 37.5MG, 1 (one) Tablet daily # 30, 12/13/2019, No Refill. Inactive Oral daily; Duration: 30 12/13/2019 27-0.8 MG Tablet 27-0. 8MG, 1 (one) Tablet daily # 90, 06/20/2020, Ref. x1. Inactive Oral daily; Duration: 90 06/20/2020 1 Ondansetron HCl 4 MG Tablet Ondansetron HCl 4MG, 1-2 Tablet three times daily as needed for nausea # 30, 07/10/2021, Ref. x6. Inactive Oral three times daily as needed for nausea; Duration: 5 07/10/2021 2 Ondansetron 8 MG Tablet Disintegrating Ondansetron 8MG, 1 (one) Tablet three times daily, as needed for nausea # 21, 09/22/2020, Ref. x2. Inactive Oral three times daily, as needed for nausea; Duration: 7 09/22/2020 1 Nitrofurantoin Monohyd Macro 100 MG Capsule Nitrofurantoin Monohyd Macro 100MG, 1 (one) Capsule two times daily # 14, 12/25/2018, No Refill. Inactive Oral two times daily; Duration: 7 12/25/2018 9 Omeprazole 20 MG Capsule Delayed Release Omeprazole 20MG, 1 (one) Capsule in the morning # 90, 10/29/2018, Ref. x1. Inactive Oral in the morning; Duration: 90 10/29/2018 0 Nortriptyline HCl 25 MG Capsule Nortriptyline HCl 25MG, 1 Capsule at bedtime # 90, 04/10/2019, Ref. x3. Inactive Oral at bedtime; Duration: 90 04/10/2019 0 Lyrica 50MG Lyrica 50MG, 1 (one) Capsule two times daily # 60, 06/13/2021, No Refill. Inactive Oral two times daily; Duration: 30 06/13/2021 2 *Pick strength-form from [employer] for eRX* medroxyPROGESTERone Acetate 10 MG Tablet medroxyPROGESTERone Acetate 10MG, 2 (two) Tablet three times daily for abnormal bleeding # 42, 10/02/2021, No Refill. Inactive Oral three times daily for abnormal bleeding; Duration: 7 10/02/2021 2 Maxalt 10 MG Tablet Maxalt 10MG, 1 table t daily, 09/27/2018, No Refill. Inactive Oral daily; Duration: 0 09/27/2018 9 metroNIDAZOLE 500 MG Tablet MetroNIDAZOLE 500MG, 1 (one) Tablet three times daily # 30, 03/23/2018, No Refill. Inactive Oral three times daily; Duration: 10 03/23/2018 8 Nitrofurantoin 100MG Nitrofurantoin( 100 MG Oral 2 daily ) Inactive -Hx Entry Oral daily; Duration: 0 07/05/2019 *Pick strength-form from [employer] for eRX* Lisinopril 10 MG Tablet lisinopriL 10mg, 1 Tablet daily # 90, 09/22/2024, Ref. x1. Inactive Oral daily; Duration: 90 09/22/2024 5 LORazepam 0.5 MG Tablet LORazepam 0.5MG, 1 (one) Tablet Tablet po at onset of seizure # 30, 10/25/2019, No Refill. Inactive Oral po at onset of seizure; Duration: 30 10/25/2019 0 Lasix 20 MG Tablet Lasix 20MG, 1 (one) Tablet take 1 daily # 90, 06/07/2022, No Refill. Inactive Oral take 1 daily; Duration: 30 06/07/2022 3 Lisinopril 5 MG Tablet Lisinopril 5MG, 1 tablet daily, 09/13/2018, No Refill. Inactive Oral daily; Duration: 0 09/13/2018 9 Lidocaine Viscous 2% Lidocaine Viscous 2 %, 10 Milliliter gargle and swallow every 3 hours as needed before eating # 240, 07/02/2018, No Refill. Inactive Mouth/Throat gargle and swallow every 3 hours as needed before eating; Duration: 3 07/02/2018 9 *Reorder from [employer] for eRx and Interaction Alerts* Furosemide 20 MG Tablet furosemide 20mg, 1 (one) Tablet once daily # 30, 06/07/2022, Ref. x5. Inactive Oral once daily; Duration: 30 06/07/2022 4 Folic Acid 400MCG Folic Acid( 400MCG O ral 1 tablet daily ) Inactive -Hx Entry Oral daily; Duration: 0 12/08/2020 *Pick strength-form from [employer] for eRX* Gabapentin 300mg gabapentin( 300mg or al 1 three times daily ) Inactive -Hx Entry oral three times daily; Duration: 0 10/02/2024 5 *Pick strength-form from [employer] for eRX* glipiZIDE 5 MG Tablet GlipiZIDE 5MG, 1 t ablet two times daily, 09/13/2018, No Refill. Inactive Oral two times daily; Duration: 0 09/13/2018 9 HumaLOG KwikPen 100 UNIT/ML Solution Pen-injector [employer] KwikPen 100UNIT/ML, 5 units 2-3 times a day with meals # 1, 11/06/2020, Ref. x5. Inactive Subcutaneous 2-3 times a day with meals; Duration: 30 11/06/2020 1 Fluconazole 150 MG Tablet Fluconazole 15 0MG, 1 (one) Tablet one time dose, repeat in 72 hours as needed for yeast infection # 3, 03/19/2021, Ref. x1. Inactive Oral one time dose, repeat in 72 hours as needed for yeast infection; Duration: 9 03/19/2021 1 Flomax 0.4 MG Capsule Flomax 0.4MG, 1 (o ne) Capsule daily as needed for kidney stones # 30, 02/10/2020, Ref. x1. Inactive Oral daily as needed for kidney stones; Duration: 30 02/10/2020 0 Dicyclomine HCl 20 MG Tablet Dicyclomine HCl 20MG, 1 (one) Tablet four times daily, as needed for cramping # 20, 07/31/2018, No Refill. Inactive Oral four times daily, as needed for cramping; Duration: 5 07/31/2018 9 Doxycycline Hyclate 100MG Doxycycline Hy clate 100MG, 1 (one) Tablet b.i.d. # 0, 07/15/2017, No Refill. Inactive Oral b.i.d.; Duration: 10 07/15/2017 8 *Pick strength-form from [facility] for eRX* Doxycycline Hyclate 100 MG Capsule Doxycycline Hyclate 100MG, 1 (one) Capsule two times daily # 14, 11/21/2020, No Refill. Inactive Oral two times daily; Duration: 7 11/21/2020 1 Cetirizine HCl 10 MG Tablet Cetirizine HCl 10MG, 1 (one) Tablet Tablet daily # 30, 07/31/2018, No Refill. Inactive Oral daily; Duration: 30 07/31/2018 9 Cipro 500 MG Tablet Cipro 500MG, 1 (one) Tablet bid # 10, 11/21/2017, No Refill. Inactive Oral bid; Duration: 5 11/21/2017 8 Cyclobenzaprine HCl 5 MG Tablet Cyclobenzaprine HCl 5MG, 1 (one) Tablet three times daily as needed # 30, 04/27/2021, No Refill. Inactive Oral three times daily as needed; Duration: 10 04/27/2021 1 Ciprofloxacin HCl 500 MG Tablet Ciprofloxacin HCl 500MG, 1 (one) Tablet twice daily # 14, 11/30/2018, No Refill. Inactive Oral twice daily; Duration: 7 11/30/2018 9 Depakote 500 MG Tablet Delayed Release Depakote 500MG, 1 (one) Tablet daily # 30, 07/10/2019, No Refill. Inactive Oral daily; Duration: 30 07/10/2019 0 Cefdinir 300 MG Capsule Cefdinir 300MG, 1 (one) Capsule twice a day # 10, 05/09/2022, No Refill. Inactive Oral twice a day; Duration: 5 05/09/2022 2 Benzonatate 200MG Benzonatate 200MG, 1 (one) Capsule every 8 hours prn cough # 21, 06/21/2021, No Refill. Inactive Oral every 8 hours prn cough; Duration: 7 06/21/2021 2 *Pick strength-form from [employer] for eRX* Bromfed DM 2-30-10 MG/5ML Syrup Bromfed DM 30-2-10MG/5ML, 10 Milliliter every 8 hours as needed for congestion and cough # 200, 07/17/2020, No Refill. Inactive Oral every 8 hours as needed for congestion and cough; Duration: 10 07/17/2020 1 Carafate 1 GM Tablet Carafate( 1GM Oral 1 (one) Tablet three times daily ) Inactive -Hx Entry Oral three times daily; Duration: 30 05/21/2019 Iydnueyojk-TQKM-Nzsiqqbe 50-325-40 MG Capsule Sditfhilxb-IITS-Tevfbaca 50-325-40MG, 1 (one) Capsule every 4-6 hours as needed for migraine # 15, 03/29/2019, Ref. x1. Inactive Oral every 4-6 hours as needed for migraine; Duration: 30 03/29/2019 9 Acetaminophen-Codeine 300-30 MG Tablet acetaminophen-codeine( 300-30mg oral 1 every 6 hours as needed ) Inactive -Hx Entry Oral every 6 hours as needed; Duration: 0 10/02/2024 5 Meclizine 12.5mg meclizine 12.5mg, 1 Tablet 2 to 3 times per day as needed for dizziness # 30, 09/06/2024, No Refill. Inactive oral 2 to 3 times per day as needed for dizziness; Duration: 0 09/06/2024 5 *Reorder from [employer] for eRx and Interaction Alerts* Bactrim DS 800-160MG Bactrim DS 800-160M G, 1 (one) Tablet two times daily # 10, 05/14/2021, No Refill. Inactive Oral two times daily; Duration: 5 05/14/2021 *Pick strength-form from [employer] for eRX* Progress Notes * Georgia SWANSONDOB:[birth year] (50 yo F)Acc No.[id number]:02/26/2025 Patient: Georgia CHRISTIE Susana :1975 A ge:49 Y S ex:Female Address:[address] [place] [address], [id number] * Refills Stop Meclizine, 12.5mg, oral, 30, meclizine 12.5mg, 1 Tablet 2 to 3 times per day as needed for dizziness # 30, 09/06/2024, No Refill. Inactive, 2 to 3 times per day as needed for dizziness, 0 Stop Acetaminophen-Codeine Tablet, 300-30 MG, Oral, acetaminophen-codeine( 300- 30mg oral 1 every 6 hours as needed ) Inactive -Hx Entry, every 6 hours as needed, 0 Stop Bactrim DS, 800-160MG, Oral, 10, Bactrim DS 800-160MG, 1 (one) Tablet two times daily # 10, 05/14/2021, No Refill. Inactive, two times daily, 5 Stop Benzonatate, 200MG, Oral, 21, Benzonatate 200MG, 1 (one) Capsule every 8 hours prn cough # 21, 06/21/2021, No Refill. Inactive, every 8 hours prn cough, 7 Stop Bromfed DM Syrup, 2-30-10 MG/5ML, Oral, 200, Bromfed DM 30-2-10MG/5ML, 10 Milliliter every 8 hours as needed for congestion and cough # 200, 07/17/2020, No Refill. Inactive, every 8 hours as needed for congestion and cough, 10 Stop Vlkbdqclff-DIQR-Blhxxhof Capsule, 50-325-40 MG, Oral, 15, Vdgwejqner-ZWYB-Ygrpfyhq 50-325-40MG, 1 (one) Capsule every 4-6 hours as needed for migraine # 15, 03/29/2019, Ref. x1. Inactive, every 4-6 hours as needed for migraine, 30 Stop Carafate Tablet, 1 GM, Oral, Carafate( 1GM Oral 1 (one) Tablet three times daily ) Inactive -Hx Entry, three times daily, 30 Stop Cefdinir Capsule, 300 MG, Oral, 10, Cefdinir 300MG, 1 (one) Capsule twice a day # 10, 05/09/2022, No Refill. Inactive, twice a day, 5 Stop Cetirizine HCl Tablet, 10 MG, Oral, 30, Cetirizine HCl 10MG, 1 (one) Tablet Tablet daily # 30, 07/31/2018, No Refill. Inactive, daily, 30 Stop Cipro Tablet, 500 MG, Oral, 10, Cipro 500MG, 1 (one) Tablet bid # 10, 11/21/2017, No Refill. Inactive, bid, 5 Stop Ciprofloxacin HCl Tablet, 500 MG, Oral, 14, Ciprofloxacin HCl 500MG, 1 (one) Tablet twice daily # 14, 11/25/2017, No Refill. Inactive, twice daily, 7 Stop Ciprofloxacin HCl Tablet, 500 MG, Oral, 14, Ciprofloxacin HCl 500MG, 1 (one) Tablet twice daily # 14, 11/30/2018, No Refill. Inactive, twice daily, 7 Stop Cyclobenzaprine HCl Tablet, 5 MG, Oral, 30, Cyclobenzaprine HCl 5MG, 1 (one) Tablet three times daily as needed # 30, 04/27/2021, No Refill. Inactive, three times daily as needed, 10 Stop Depakote Tablet Delayed Release, 500 MG, Oral, 30, Depakote 500MG, 1 (one) Tablet daily # 30, 07/10/2019, No Refill. Inactive, daily, 30 Stop Dicyclomine HCl Tablet, 20 MG, Oral, 20, Dicyclomine HCl 20MG, 1 (one) Tablet four times daily, as needed for cramping # 20, 07/31/2018, No Refill. Inactive, four times daily, as needed for cramping, 5 Stop Doxycycline Hyclate, 100MG, Oral, 0, Doxycycline Hyclate 100MG, 1 (one) Tablet b.i.d. # 0, 07/15/2017, No Refill. Inactive, b.i.d., 10 Stop Doxycycline Hyclate Capsule, 100 MG, Oral, 14, Doxycycline Hyclate 100MG, 1 (one) Capsule two times daily # 14, 11/21/2020, No Refill. Inactive, two times daily, 7 Stop Flomax Capsule, 0.4 MG, Oral, Flomax( 0.4MG Oral 1 daily ) Inactive -Hx Entry, daily, 0 Stop Flomax Capsule, 0.4 MG, Oral, 30, Flomax 0.4MG, 1 (one) Capsule daily as needed for kidney stones # 30, 02/10/2020, Ref. x1. Inactive, daily as needed for kidney stones, 30 Stop Fluconazole Tablet, 150 MG, Oral, 3, Fluconazole 150MG, 1 (one) Tablet one time dose, repeat in 72 hours as needed for yeast infection # 3, 03/19/2021, Ref. x1. Inactive, one time dose, repeat in 72 hours as needed for yeast infection, 9 Stop Folic Acid, 400MCG, Oral, Folic Acid( 400MCG Oral 1 tablet daily ) Inactive -Hx Entry, daily, 0 Stop Furosemide Tablet, 20 MG, Oral, 30, furosemide 20mg, 1 (one) Tablet once daily # 30, 06/07/2022, Ref. x5. Inactive, once daily, 30 Stop Gabapentin, 300MG, Oral, 180, Gabapentin 300MG, 1 (one) Capsule in AM and before bedtime daily for nerve pain # 180, 03/19/2021, Ref. x1. Inactive, in AM and before bedtime daily for nerve pain, 90 Stop Gabapentin, 300mg, oral, gabapentin( 300mg oral 1 three times daily ) Inactive -Hx Entry, three times daily, 0 Stop glipiZIDE Tablet, 5 MG, Oral, GlipiZIDE 5MG, 1 tablet two times daily, 09/13/2018, No Refill. Inactive, two times daily, 0 Stop HumaLOG KwikPen Solution Pen-injector, 100 UNIT/ML, Subcutaneous, 1, [employer] KwikPen 100UNIT/ML, 5 units 2-3 times a day with meals # 1, 11/06/2020, Ref. x5. Inactive, 2-3 times a day with meals, 30 Stop Lasix Tablet, 20 MG, Oral, 90, Lasix 20MG, 1 (one) Tablet take 1 daily # 90, 06/07/2022, No Refill. Inactive, take 1 daily, 30 Stop Lidocaine Viscous, 2%, Mouth/Throat, 240, Lidocaine Viscous 2%, 10 Milliliter gargle and swallow every 3 hours as needed before eating # 240, 07/02/2018, No Refill. Inactive, gargle and swallow every 3 hours as needed before eating, 3 Stop Lisinopril Tablet, 5 MG, Oral, Lisinopril 5MG, 1 tablet daily, 09/13/2018, No Refill. Inactive, daily, 0 Stop Lisinopril Tablet, 10 MG, Oral, 90, lisinopriL 10mg, 1 Tablet daily # 90, 09/22/2024, Ref. x1. Inactive, daily, 90 Stop LORazepam Tablet, 0.5 MG, Oral, LORazepam( 0.5MG Oral 1 every eight hours, as needed ) Inactive -Hx Entry, every eight hours, as needed, 0 Stop LORazepam Tablet, 0.5 MG, Oral, 30, LORazepam 0.5MG, 1 (one) Tablet Tablet po at onset of seizure # 30, 10/25/2019, No Refill. Inactive, po at onset of seizure, 30 Stop Lyrica, 50MG, Oral, 60, Lyrica 50MG, 1 (one) Capsule two times daily # 60, 06/13/2021, No Refill. Inactive, two times daily, 30 Stop Maxalt Tablet, 10 MG, Oral, Maxalt 10MG, 1 tablet daily, 09/27/2018, No Refill. Inactive, daily, 0 Stop medroxyPROGESTERone Acetate Tablet, 10 MG, Oral, 42, medroxyPROGESTERone Acetate 10MG, 2 (two) Tablet three times daily for abnormal bleeding # 42, 10/02/2021, No Refill. Inactive, three times daily for abnormal bleeding, 7 Stop metroNIDAZOLE Tablet, 500 MG, Oral, 30, MetroNIDAZOLE 500MG, 1 (one) Tablet three times daily # 30, 03/23/2018, No Refill. Inactive, three times daily, 10 Stop Nitrofurantoin, 100MG, Oral, Nitrofurantoin( 100MG Oral 2 daily ) Inactive -Hx Entry, daily, 0 Stop Nitrofurantoin Monohyd Macro Capsule, 100 MG, Oral, 14, Nitrofurantoin Monohyd Macro 100MG, 1 (one) Capsule two times daily # 14, 12/25/2018, No Refill. Inactive, two times daily, 7 Stop Nortriptyline HCl Capsule, 25 MG, Oral, 90, Nortriptyline HCl 25MG, 1 Capsule at bedtime # 90, 04/10/2019, Ref. x3. Inactive, at bedtime, 90 Stop Omeprazole Capsule Delayed Release, 20 MG, Oral, 90, Omeprazole 20MG, 1 (one) Capsule in the morning # 90, 10/29/2018, Ref. x1. Inactive, in the morning, 90 Stop Ondansetron Tablet Disintegrating, 8 MG, Oral, 21, Ondansetron 8MG, 1 (one) Tablet three times daily, as needed for nausea # 21, 09/22/2020, Ref. x2. Inactive, three times daily, as needed for nausea, 7 Stop Ondansetron HCl Tablet, 4 MG, Oral, 30, Ondansetron HCl 4MG, 1-2 Tablet three times daily as needed for nausea # 30, 07/10/2021, Ref. x6. Inactive, three times daily as needed for nausea, 5 Stop Phenazopyridine HCl, 200MG, Oral, 21, Phenazopyridine HCl 200MG, 1 (one) Tablet three times daily as needed for pain # 21, 12/25/2018, No Refill. Inactive, three times daily as needed for pain, 7 Stop Phenazopyridine HCl, 200MG, Oral, 21, Phenazopyridine HCl 200MG, 1 (one) Tablet three times daily as needed for urinary symptoms # 21, 01/04/2019, Ref. x2. Inactive, three times daily as needed for urinary symptoms, 7 Stop Phentermine HCl Capsule, 37.5 MG, Oral, 30, Phentermine HCl 37.5MG, 1 (one) Capsule daily # 30, 03/01/2019, No Refill. Inactive, daily, 30 Stop Phentermine HCl Tablet, 37.5 MG, Oral, 30, Phentermine HCl 37.5MG, 1 (one) Tablet daily # 30, 12/13/2019, No Refill. Inactive, daily, 30 Stop predniSONE Tablet, 50 MG, Oral, 5, predniSONE 50MG, 1 (one) Tablet daily # 5, 06/21/2021, No Refill. Inactive, daily, 5 Stop Tablet, 27-0.8 MG, Oral, 90, 27-0.8MG, 1 (one) Tablet daily # 90, 06/20/2020, Ref. x1. Inactive, daily, 90 Stop Prevacid Capsule Delayed Release, 30 MG, Oral, Prevacid( 30MG Oral 1 (one) Capsule three times daily ) Inactive -Hx Entry, three times daily, 30 Stop ProAir HFA, 108 (90 Base)MCG/ACT, Inhalation, 1, ProAir HFA 108 (90 Base)MCG/ACT, 2 (two) Puff every 4-6 hours as needed for wheezing # 1, 11/21/2020, Ref. x2. Inactive, every 4-6 hours as needed for wheezing, 30 Stop Promethazine HCl Tablet, 25 MG, Oral, 21, Promethazine HCl 25MG, 1 (one) Tablet every 8 hours as needed for nausea # 21, 12/09/2018, No Refill. Inactive, every 8 hours as needed for nausea, 7 Stop Protonix Tablet Delayed Release, 40 MG, Oral, Protonix( 40MG Oral 1 daily ) Inactive -Hx Entry, daily, 0 Stop Provera Tablet, 10 MG, Oral, Provera( 10MG Oral 1 daily ) Inactive -Hx Entry, daily, 0 Stop Simvastatin Tablet, 20 MG, Oral, Simvastatin( 20MG Oral 1 tablet daily ) Inactive -Hx Entry, daily, 0 Stop Sucralfate Suspension, 1 GM/10ML, Oral, 280, Sucralfate 1GM/10ML, 10 Milliliter Milliliter four times daily, do not take within 30 mins of other medications # 280, 07/02/2018, Ref. x3. Inactive, four times daily, do not take within 30 mins of other medications, 7 Stop Symbicort Aerosol, 160-4.5 MCG/ACT, Inhalation, 1, Symbicort 160- 4.5MCG/ACT, 2 puffs Puff daily # 1, 08/29/2021, No Refill. Inactive, daily, 30 Stop Topamax Tablet, 50 MG, Oral, 30, Topamax 50MG, 1 (one) Tablet daily # 30, 05/21/2019, No Refill. Inactive, daily, 30 Stop traMADol HCl Tablet, 50 MG, Oral, 0, TraMADol HCl 50MG, # 0, 07/22/2018, No Refill. Inactive, 0 Stop Ventolin HFA Aerosol Solution, 108 (90 Base) MCG/ACT, Inhalation, Ventolin HFA 108 (90 Base)MCG/ACT, 2 puffs every 4 hours PRN, 09/21/2018, No Refill. Inactive, every 4 hours PRN, 0 Stop Vitamin B Complex Tablet, - , Oral, Vitamin B Complex( Oral 1 tablet daily ) Inactive -Hx Entry, daily, 0 Stop Vitamin D3 Tablet, 50 MCG (2000 UT), Oral, 30, Vitamin D3 50 MCG(2000 UT), 1 (one) Tablet daily # 30, 05/21/2019, No Refill. Inactive, daily, 30 Stop Voltaren, 1%, External, 100, Voltaren 1%, 2 (two) gram Apply to the affected joint(s) twice daily as needed for pain # 100, 08/11/2020, No Refill. Inactive, Apply to the affected joint(s) twice daily as needed for pain, 10 Stop Zofran, 4MG, Oral, Zofran( 4MG Oral 1 daily ) Inactive -Hx Entry, daily, 0 Stop Zoloft, 50MG, Oral, 90, Zoloft 50MG, 1 (one) Tablet daily # 90, 07/10/2019, Ref. x3. Inactive, daily, 90 Stop ZyrTEC-D Allergy & Congestion, 5-120MG, Oral, 20, ZyrTEC-D Allergy & Congestion 5-120MG, 1 (one) Tablet daily # 20, 08/11/2018, No Refill. Inactive, daily, 20 Stop Vitamin B 12, 500MCG, Oral, Vitamin B 12( 500MCG Oral 1 tablet daily ) Inactive -Hx Entry, daily, 0 Stop B-6, 100MG, Oral, B-6( 100MG Oral 1 daily ) Inactive -Hx Entry, daily, 0 Stop Dulera Aerosol, 100-5 MCG/ACT, Inhalation, 13, Dulera 100-5mcg/actuat, 2 puffs 2 times per day # 13, 12/23/2023, Ref. x5. Inactive, 2 times per day, 30 Stop Vimovo Tablet Delayed Release, 500-20 MG, Oral, 60, Vimovo 500-20MG, 1 (one) Tablet two times daily as needed # 60, 06/14/2019, Ref. x6. Inactive, two times daily as needed, 30 Stop BD Pen Needle Hazel U/F Miscellaneous, 32G X 4 MM , 120, BD Pen Needle Hazel U/F , 1 (one) Pen needle four times daily with meal time insulin 3x/day and basal insulin at bedtime # 120, 10/13/2020, Ref. x3. Inactive, four times daily with meal time insulin 3x/day and basal insulin at bedtime, 30 Stop Lyndsey Allergy, 180MG, Oral, 30, Lyndsey Allergy 180MG, 1 (one) Tablet daily # 30, 10/28/2018, Ref. x6. Inactive, daily, 30 Stop Bydureon, 2MG, Subcutaneous, 4, Bydureon 2MG, 2 (two) mg once weekly # 4, 08/30/2020, Ref. x5. Inactive, once weekly, 30 Stop metFORMIN HCl ER Tablet Extended Release 24 Hour, 500 MG, Oral, 30, metFORMIN HCl ER 500MG, 1 (one) Tablet once daily in the morning after breakfast # 30, 06/14/2020, Ref. x5. Inactive, once daily in the morning after breakfast, 30 Stop Breo Ellipta Aerosol Powder Breath Activated, 100-25 MCG/ACT, Inhalation, 28, Breo Ellipta 100-25mcg/dose, 1 inhalation daily # 28, 12/11/2023, No Refill. Inactive, daily, 28 Stop Trulicity Solution Pen-injector, 0.75 MG/0.5ML, Subcutaneous, 2, Trulicity 0.75mg/0.5 mL, 1 (one) Solution Pen-injector once weekly for 4 weeks # 2, 07/09/2023, No Refill. Inactive, once weekly for 4 weeks, 30 Stop Trulicity Solution Pen-injector, 1.5 MG/0.5ML, Subcutaneous, 2, Trulicity 1.5mg/0.5 mL, 1 (one) mL once weekly # 2, 07/09/2023, Ref. x1. Inactive, once weekly, 28 Stop Accu-Chek Guide Kit, w/Device , 1, Accu-Chek Guide , 1 (one) Kit as directed # 1, 06/19/2020, Ref. x1. Inactive, as directed, 30 Stop + Complete Multi Therapy Pack, 0.267 & 373 MG, Oral, 1, + Complete Multi 0.267 & 373MG, use as directed per instructions in pack # 1, 05/21/2019, No Refill. Inactive, use as directed per instructions in pack, 30 Stop Soliqua Solution Pen-injector, 100-33 UNT-MCG/ML, Subcutaneous, 1, Soliqua 098-69COW-KQK/ML, 10 units at bedtime daily for type 2 diabetes # 1, 09/04/2020, Ref. x3. Inactive, at bedtime daily for type 2 diabetes, 30 Stop Dexcom G5 Mob/G4 Plat Sensor, 1, Dexcom G5 Mob/G4 Plat Sensor , 1 (one) SENSOR EVERY 2 WEEKS # 1, 11/10/2020, Ref. x6. Inactive, EVERY 2 WEEKS, 14 Stop Bydureon BCise Auto-injector, 2 MG/0.85ML, Subcutaneous, 4, Bydureon BCise 2MG/0.85ML, 1 (one) Auto-injector weekly # 4, 08/30/2020, Ref. x6. Inactive, weekly, 30 Stop Trelegy Ellipta Aerosol Powder Breath Activated, 100-62.5-25 MCG/ACT, Inhalation, 28, Trelegy Ellipta 100-62.5-25mcg, 1 inhalation daily # 28, 03/10/2024, Ref. x1. Inactive, daily, 28 Stop BD Pen Needle Micro U/F Miscellaneous, 32G X 6 MM , 100, BD Pen Needle Micro U/F , 1 (one) needle to be used with Lantus insulin pen daily # 100, 04/11/2021, Ref. x2. Inactive, to be used with Lantus insulin pen daily, 100 Stop Guardian Sensor (3), 90, Guardian Sensor (3) , as directed # 90, 11/08/2020, Ref. x3. Inactive, as directed, 90 Stop Dexcom G5 Lamination Spinner Kit, 1, Dexcom G5 Lamination Spinner Kit , 1 (one) Device as directed # 1, 11/10/2020, Ref. x11. Inactive, as directed, 14 Stop FreeStyle Philip 2 [place] Device, - , 1, FreeStyle Philip 2 [place] , 1 (one) Device as directed # 1, 03/19/2021, No Refill. Inactive, as directed, 30 Stop FreeStyle Philip 2 Sensor Miscellaneous, - , miscellaneous, 2, FreeStyle Philip 2 Sensor , 1 (one) sensor replace sensor every 14 days # 2, 03/13/2024, Ref. x5. Inactive, replace sensor every 14 days, 28 Stop Ozempic (2 MG/DOSE) Solution Pen-injector, 8 MG/3ML, Subcutaneous, Ozempic (2 MG/DOSE)( 8MG/3ML Subcutaneous 2 (two) SQ once weekly ) Inactive -Hx Entry, SQ once weekly, 90 Stop cholecalciferol (vitamin D3), 1,250 mcg(50,000 un, oral, 12, cholecalciferol (vitamin D3) 1,250 mcg(50,000 un, 1 Capsule every week # 12, 03/11/2024, No Refill. Inactive, every week, 84 Stop cyclobenzaprine, 5mg, oral, 15, cyclobenzaprine 5mg, 1 (one) Tablet three times daily # 15, 04/03/2022, No Refill. Inactive, three times daily, 5 Stop HumaLOG KwikPen Insulin, 100unit/mL, subcutaneous, 5, HumaLOG KwikPen Insulin 100unit/mL, 5 units subcutaneous three times a day with breakfast, lunch, and dinner # 5, 03/10/2024, Ref. x5. Inactive, subcutaneous three times a day with breakfast, lunch, and dinner, 30 Stop Lantus Solostar U-100 Insulin, 100 unit/mL(3 mL), subcutaneous, 10, Lantus Solostar U-100 Insulin 100 unit/mL(3 mL), 20 units at bedtime # 10, 05/07/2024, Ref. x5. Inactive, at bedtime, 30 Stop Ozempic, 2 mg/dose(8 mg/3 mL, subcutaneous, 9, Ozempic 2 mg/dose(8 mg/3 mL, 2 (two) milligram SQ once weekly # 9, 03/14/2023, No Refill. Inactive, SQ once weekly, 90 Stop Ozempic, 0.25 mg or 0.5mg (2 mg/3, subcutaneous, 3, Ozempic 0.25 mg or 0.5mg (2 mg/3, 0.5 mg weekly # 3, 12/11/2023, No Refill. Inactive, weekly, 28 Stop Ozempic, 1 mg/dose(4 mg/3 mL, subcutaneous, 4, Ozempic 1 mg/dose(4 mg/3 mL, 1 (one) mL weekly # 4, 05/07/2024, No Refill. Inactive, weekly, 30 Stop Pravastatin, 20mg, oral, 30, pravastatin 20mg, 1 Tablet daily # 30, 09/12/2023, No Refill. Inactive, daily, 30 Stop promethazine, 6.25mg/5 mL, oral, 360, promethazine 6.25mg/5 mL, 4 Milliliter every 6 hours as needed for nausea # 360, 07/24/2022, No Refill. Inactive, every 6 hours as needed for nausea, 5 Stop tamsulosin, 0.4mg, oral, 7, tamsulosin 0.4mg, 1 (one) Capsule daily # 7, 04/03/2022, No Refill. Inactive, daily, 7 Subjective: * Chief Complaints: * E MR-Héctor * * Date:
--- OUTSIDE RECORDS SUMMARY | 2025-02-27 03:00 | XMS_ITS ---
Author Organization [employer] are Address [address] [place] [address] Care Team Providers Care Neon Sign Mechanic Name Role Phone MRS. Sunni Ramon Primary [...] every 12 weeks; Duration: 0 *Reorder from [facility] for eRx and Interaction Alerts* 11/04/2024 Active FreeStyle Philip 3 Sensor - Miscellaneous FreeStyle Philip 3 Sensor( miscellaneous every 14 days ) Active -Hx Entry miscellaneous every 14 days; Duration: 0 11/04/2024 Active Folic Acid Xtra Folic Acid Xtra( Ora l 1 (one) daily ) Active -Hx Entry Oral daily; Duration: 30 *Reorder from [facility] for eRx and Interaction Alerts* [...] other day; Duration: 30 *Pick strength-form from [facility] for eRX* 11/09/2019 Active PROzac [...] prn wheezing; Duration: 30 *[facility]* 01/22/2024 Active ALPRAZolam 0.5 MG Tablet ALPRAZolam 0.5mg, 1 (one) tablet two times daily, as needed FOR PANIC ATTACHS # 20, 10/12/2024, No Refill. Active Oral two times daily, as needed FOR PANIC ATTACHS; Duration: 10 DX: PANIC ATTACkS [place] Controlled Substance Reporting Database reviewed and patient found to be in compliance with prescription. 10/12/2024 Active Nurtec ODT 75mg Nurtec ODT 75mg, 1 (one) Tablet daily at onset of migraine headache # 8, 01/09/2024, Ref. x2. Active oral daily at onset of migraine headache; Duration: 30 *Reorder from [facility] for eRx and Interaction Alerts* 01/09/2024 Active cyclobenzaprine 5mg cyclobenzaprine 5mg, 1 tablet Tablet at bedtime as needed for neck tension # 90, 11/04/2024, Ref. x1. Active oral at bedtime as needed for neck tension; Duration: 90 *Reorder from [facility] for eRx and Interaction Alerts* 11/04/2024 Active Ozempic 2 mg/dose(8 mg/3 mL Ozempic( 2 mg/dose(8 mg/3 mL subcutaneous 2 mg one weekly ) Active -Hx Entry subcutaneous one weekly; Duration: 0 *[facility] Interaction Alert[facility]* 11/04/2024 Active cholecalciferol (vitamin D3) 50 mcg(2,000 uni cholecalciferol (vitamin D3) 50 mcg(2,000 uni, 1 (one) Tablet daily # 30, 11/20/2022, No Refill. Active oral daily; Duration: 30 *Reorder from [facility] for [facility]Rx and Interaction Alerts* 11/20/2022 Active atorvastatin 40mg atorvastatin 40mg, 1 (one) Tablet at bedtime for high cholesterol # 90, 09/13/2024, Ref. x1. Active oral at bedtime for high cholesterol; Duration: 90 *[facility] from [facility] for [facility] and Interaction Alerts* 09/13/2024 [...] smoker Encounters Encounter Location Date Provider Diagnosis [facility] [address] [place] [address] 02/27/2025 Provider Migration Plan Of Treatment No Information Progress Notes * [place] ARAGONDOB:[birth year] (50 yo F)Acc No.[id number]:02/27/2025 Patient: [place] CHRISTIE :1975 A ge:49 Y S ex:Female Address:[address] [place] [id number] Subjective: * Chief Complaints: * E MR-Héctor [...] Notes to Pharmacist: *Pick strength-form from [facility] for eRX*ALPRAZolam 0.5 MG Tablet ALPRAZolam 0.5mg, 1 (one) tablet two times daily, as needed FOR PANIC ATTACHS # 20, 10/12/2024, No Refill. Active Oral two times daily, as needed FOR PANIC ATTACHS , Notes to Pharmacist: DX: PANIC ATTACkS [place] Controlled Substance Reporting Database reviewed and patient found to be in compliance with prescription.Ferrous Sulfate 325 (65 Fe)MG Ferrous Sulfate 325 (65 Fe)MG, 1 tablet Tablet daily or every other day # 30, 11/09/2019, Ref. x2. Active Oral daily or every other day , Notes to Pharmacist: *Pick strength-form from [facility] for eRX*Ondansetron 4 MG Tablet Disintegrating ondansetron [...] , Notes to Pharmacist: *Reorder from [facility] for eRx and Interaction Alerts*Farxiga 10 MG [...] , Notes to Pharmacist: *Reorder from [facility] for eRx and Interaction Alerts*atorvastatin 40mg atorvastatin 40mg, 1 (one) Tablet at bedtime for high cholesterol # 90, 09/13/2024, Ref. x1. Active oral at bedtime for high cholesterol , Notes to Pharmacist: *Reorder from [facility] for eRx and Interaction Alerts*cholecalciferol (vitamin D3) 50 mcg(2,000 uni cholecalciferol (vitamin D3) 50 mcg(2,000 uni, 1 (one) Tablet daily # 30, 11/20/2022, No Refill. Active oral daily , Notes to Pharmacist: *Reorder from [facility] for eRx and Interaction Alerts*cyclobenzaprine 5mg cyclobenzaprine 5mg, 1 tablet Tablet at bedtime as needed for neck tension # 90, 11/04/2024, Ref. x1. Active oral at bedtime as needed for neck tension , Notes to Pharmacist: *Reorder from [facility] for eRx and Interaction Alerts*Nurtec ODT 75mg Nurtec ODT 75mg, 1 (one) Tablet daily at onset of migraine headache # 8, 01/09/2024, Ref. x2. Active oral daily at onset of migraine headache , Notes to Pharmacist: *Reorder from [facility] for eRx and Interaction Alerts*Ozempic 2 mg/dose(8 mg/3 mL Ozempic( 2 mg/dose(8 mg/3 mL subcutaneous 2 mg one weekly ) Active -Hx Entry subcutaneous one weekly , Notes to Pharmacist: *Reorder from [facility] for eRx and Interaction Alerts*Taking Albuterol Sulfate 90mcg/actuat albuterol sulfate 90mcg/actuat, 2 Puff q 4 hours prn wheezing # 1, 01/22/2024, Ref. x2. Active inhalation q 4 hours prn wheezing , Notes to Pharmacist: *Pick strength-form from [facility] for eRX*Taking ALPRAZolam 0.5 MG Tablet ALPRAZolam 0.5mg, 1 (one) tablet two times daily, as needed FOR PANIC ATTACHS # 20, 10/12/2024, No Refill. Active Oral two times daily, as needed FOR PANIC ATTACHS , Notes to Pharmacist: DX: PANIC ATTACkS [place] Controlled Substance Reporting Database reviewed and patient found to be in compliance with prescription.Taking Ferrous Sulfate 325 (65 Fe)MG Ferrous Sulfate 325 (65 Fe)MG, 1 tablet Tablet daily or every other day # 30, 11/09/2019, Ref. x2. Active Oral daily or every other day , Notes to Pharmacist: *Pick strength-form from [facility] for eRX*Taking Ondansetron 4 MG [...] daily , Notes to Pharmacist: *Reorder from [facility] for eRx and Interaction Alerts*Taking [...] weeks , Notes to Pharmacist: *Reorder from [facility] for eRx and Interaction Alerts*Taking atorvastatin 40mg atorvastatin 40mg, 1 (one) Tablet at bedtime for high cholesterol # 90, 09/13/2024, Ref. x1. Active oral at bedtime for high cholesterol , Notes to Pharmacist: *Reorder from [facility] for eRx and Interaction Alerts*Taking cholecalciferol (vitamin D3) 50 mcg(2,000 uni cholecalciferol (vitamin D3) 50 mcg(2,000 uni, 1 (one) Tablet daily # 30, 11/20/2022, No Refill. Active oral daily , Notes to Pharmacist: *Reorder from [facility] for eRx and Interaction Alerts*Taking cyclobenzaprine 5mg cyclobenzaprine 5mg, 1 tablet Tablet at bedtime as needed for neck tension # 90, 11/04/2024, Ref. x1. Active oral at bedtime as needed for neck tension , Notes to Pharmacist: *Reorder from [facility] for eRx and Interaction Alerts*Taking Nurtec ODT 75mg Nurtec ODT 75mg, 1 (one) Tablet daily at onset of migraine headache # 8, 01/09/2024, Ref. x2. Active oral daily at onset of migraine headache , Notes to Pharmacist: *Reorder from [facility] for eRx and Interaction Alerts*Taking Ozempic 2 mg/dose(8 mg/3 mL Ozempic( 2 mg/dose(8 mg/3 mL subcutaneous 2 mg one weekly ) Active -Hx Entry subcutaneous one weekly , Notes to Pharmacist: *Reorder from [facility] for eRx and Interaction Alerts* * Allergies: A llergies Reconciled: AllergyAzithromycin *CHEMICALS*: AllergyBanana (Diagnostic): AllergyBlueberry Flavor *PHARMACEUTICAL ADJUVANTS*: AllergyErythromycin: AllergyIodine *ANTISEPTICS & DISINFECTANTS*: AllergyLactase *DIETARY PRODUCTS/DIETARY MANAGEMENT PRODU: AllergyMontelukast Sodium *ANTIASTHMATIC AND BRONCHODILAT: AllergyPenicillins: AllergyRaspberry Flavor *PHARMACEUTICAL ADJUVANTS*: AllergyShellfish-derived Products: Allergy * * Date:
--- OUTSIDE RECORDS SUMMARY | 2025-03-05 03:00 | XMS_ITS ---
Author Organization [facility] [place] Address [address] [place] [address] Care Team Providers Care Director Marketing Analytics Name Role Phone Benedicto Talley MD Unavailable Unavailable Migration, Provider Unavailable Unavailable REASON FOR VISIT EMR-Héctor Encounters Encounter Location Date Provider Diagnosis [facility] [address] [place] [address] 03/05/2025 Provider Migration Plan Of Treatment Medication [...] cough; Duration: 10 07/17/2020 1 *Reorder from [facility] for eRx and Interaction Alerts* Carafate 1 GM Tablet Carafate( 1GM Oral 1 (one) Tablet three times daily ) Inactive -Hx Entry Oral three times daily; Duration: 30 05/21/2019 Qxjipfhsse-KFBJ-Gxlunwby 50-325-40 MG Capsule Cnlnxqsjxd-FIVE-Ptscyoxe 50-325-40MG, 1 (one) Capsule every 4-6 hours [...] Duration: 7 06/21/2021 2 *Pick strength-form from [employer] for eRX* promethazine 6.25mg/5 mL promethazine 6. 25mg/5 mL, 4 Milliliter every 6 hours as needed for nausea # 360, 07/24/2022, No Refill. Inactive oral every 6 hours as needed for nausea; Duration: 5 07/24/2022 3 *Reorder from [facility] for eRx and Interaction Alerts* tamsulosin 0.4mg tamsulosin 0.4mg, 1 (one) Capsule daily # 7, 04/03/2022, No Refill. Inactive oral daily; Duration: 7 04/03/2022 3 *Reorder from [facility] for eRx and Interaction Alerts* Acetaminophen-Codeine 300-30 [...] dizziness; Duration: 0 09/06/2024 5 [facility]* Bactrim DS 800-160MG Bactrim DS 800-160M G, 1 (one) Tablet two times daily # 10, 05/14/2021, No Refill. Inactive Oral two times daily; Duration: 5 05/14/2021 *Pick strength-form from [facility] for eRX* Ozempic 2 mg/dose(8 mg/3 mL Ozempic 2 mg/dose(8 mg/3 mL, 2 (two) milligram SQ once weekly # 9, 03/14/2023, No Refill. Inactive subcutaneous SQ once weekly; Duration: 90 03/14/2023 3 *Reorder from [facility] for eRx and Interaction Alerts* Lantus Solostar U-100 Insulin 100 unit/mL(3 mL) Lantus Solostar U-100 Insulin 100 unit/mL(3 mL), 20 units at bedtime # 10, 05/07/2024, Ref. x5. Inactive subcutaneous at bedtime; Duration: 30 05/07/2024 5 *Reorder from [facility] for eRx and Interaction Alerts* Ozempic 1 mg/dose(4 mg/3 mL Ozempic 1 mg/dose(4 mg/3 mL, 1 (one) mL weekly # 4, 05/07/2024, No Refill. Inactive subcutaneous weekly; Duration: 30 05/07/2024 5 *Reorder from [facility] for eRx and Interaction Alerts* Ozempic 0.25 mg or 0.5mg (2 mg/3 Ozempic 0.25 mg or 0.5mg (2 mg/3, 0.5 mg weekly # 3, 12/11/2023, No Refill. Inactive subcutaneous weekly; Duration: 28 12/11/2023 4 *Reorder from [facility] for eRx and Interaction Alerts* pravastatin 20mg pravastatin 20mg, 1 Tablet daily # 30, 09/12/2023, No Refill. Inactive oral daily; Duration: 30 09/12/2023 4 *Reorder from [facility] for eRx and Interaction Alerts* HumaLOG KwikPen Insulin 100unit/mL HumaLOG KwikPen Insulin 100unit/mL, 5 units subcutaneous three times a day with breakfast, lunch, and dinner # 5, 03/10/2024, Ref. x5. Inactive subcutaneous subcutaneous three times a day with breakfast, lunch, and dinner; Duration: 30 03/10/2024 4 *Reorder from [facility] for eRx and Interaction Alerts* cyclobenzaprine 5mg cyclobenzaprine 5mg, 1 (one) Tablet three times daily # 15, 04/03/2022, No Refill. Inactive oral three times daily; Duration: 5 04/03/2022 3 *Reorder from [facility] for eRx and Interaction Alerts* FreeStyle [...] week; Duration: 84 03/11/2024 4 *Reorder from [facility] for eRx and Interaction Alerts* [...] 04/11/2021 1 Src Refills: 100 Dexcom G5 Automotive Electrician Kit Dexcom G5 Receive r Kit , 1 (one) Device as directed # 1, 11/10/2020, Ref. x11. Inactive as directed; Duration: 14 11/10/2020 1 DX: UNCONTROLLED INSULLIN DEPENDENT DIABETES FreeStyle Philip 2 Harshaw - Device FreeStyle Philip 2 Harshaw , 1 (one) Device as directed # [...] instead Soliqua 100-33 UNT-MCG/ML Solution Pen-injector Soliqua [id number]-BYV/ML, 10 units at bedtime daily for type [...] once weekly; Duration: 30 08/30/2020 *Reorder from [employer] for eRx and Interaction Alerts* Breo Ellipta [...] Duration: 30 10/28/2018 9 *Pick strength-form from [employer] for eRX* BD Pen Needle Hazel U/F [...] daily; Duration: 0 12/24/2020 *Pick strength-form from [employer] for eRX* Voltaren 1% Voltaren 1%, 2 (two) gram Apply to the affected joint(s) twice daily as needed for pain # 100, 08/11/2020, No Refill. Inactive External Apply to the affected joint(s) twice daily as needed for pain; Duration: 10 08/11/2020 1 *Pick strength-form from [employer] for eRX* Zoloft 50MG Zoloft 50MG, 1 (one) Tablet daily # 90, 07/10/2019, Ref. x3. Inactive Oral daily; Duration: 90 07/10/2019 0 *Pick strength-form from [employer] for eRX* Zofran 4MG Zofran( 4MG Oral 1 d aily ) Inactive -Hx Entry Oral daily; Duration: 0 07/06/2019 *Reorder from [employer] for eRx and Interaction Alerts* ZyrTEC-D Allergy & Congestion 5-120MG ZyrTEC-D Allergy & Congestion 5-120MG, 1 (one) Tablet daily # 20, 08/11/2018, No Refill. Inactive Oral daily; Duration: 20 08/11/2018 9 *Pick strength-form from [employer] for eRX* Vitamin B 12 500MCG Vitamin B 12( 500MCG Oral 1 tablet daily ) Inactive -Hx Entry Oral daily; Duration: 0 12/08/2020 *Pick strength-form from [employer] for eRX* traMADol HCl 50 MG Tablet [...] wheezing; Duration: 30 11/21/2020 1 *Reorder from [employer] for eRx and Interaction Alerts* Phentermine HCl [...] Duration: 7 01/04/2019 9 *Pick strength-form from [employer] for eRX* Phentermine HCl 37.5 MG Capsule [...] eating; Duration: 3 07/02/2018 9 *Reorder from [employer] for eRx and Interaction Alerts* Fluconazole 150 [...] stones; Duration: 30 02/10/2020 0 *Reorder from [employer] for eRx and Interaction Alerts* Furosemide 20mg furosemide 20mg, 1 ( one) Tablet once daily # 30, 06/07/2022, Ref. x5. Inactive oral once daily; Duration: 30 06/07/2022 4 *Pick strength-form from [employer] for eRX* Folic Acid 400MCG Folic Acid( 400MCG O ral 1 tablet daily ) Inactive -Hx Entry Oral daily; Duration: 0 12/08/2020 *Pick strength-form from [employer] for eRX* Gabapentin 300mg gabapentin( 300mg or [...] Duration: 7 11/21/2020 1 *Pick strength-form from [employer] for eRX* Progress Notes * Georgia ARAGON SusanaDOB:[birth year] (50 yo F)Acc No.[id number]:03/05/2025 Patient: Georgia CHRISTIE :1975 A ge:49 Y S ex:Female Address:[address] [place] [id number] * Refills Stop Meclizine, 12.5mg, oral, 30, [...] needed for congestion and cough, 10 Stop Fcpldchjee-GZVZ-Qamurimy Capsule, 50-325-40 MG, Oral, 15, Olvyukjlfz-WZXG-Vcizolzl 50-325-40MG, 1 (one) Capsule every 4-6 hours [...] Solution Pen-injector, 100-33 UNT-MCG/ML, Subcutaneous, 1, Soliqua [id number], 10 units at bedtime daily for type [...] Inactive, as directed, 90 Stop Dexcom G5 Automotive Electrician Kit, 1, Dexcom G5 Automotive Electrician Kit , 1 (one) Device as directed # 1, 11/10/2020, Ref. x11. Inactive, as directed, 14 Stop FreeStyle Philip 2 Harshaw Device, - , 1, FreeStyle Philip 2 Harshaw , 1 (one) Device as directed # [...]
--- OUTSIDE RECORDS SUMMARY | 2025-03-06 03:00 | XMS_ITS ---
Author Organization [facility] [place] Address [address] [place] [address] Care Team Providers Care Imcu Specialist Name Role Phone Benedicto Talley MD [...] Entry Oral daily; Duration: 30 *Reorder from [employer] for eRx and Interaction Alerts* 04/27/2021 Active ALPRAZolam 0.5 MG Tablet ALPRAZolam 0.5mg, 1 (one) tablet two times daily, as needed FOR PANIC ATTACHS # 20, 10/12/2024, No Refill. Active Oral two times daily, as needed FOR PANIC ATTACHS; Duration: 10 DX: PANIC ATTACkS [place] Controlled Substance Reporting Database reviewed and patient found to be in compliance with prescription. 10/12/2024 Active Albuterol Sulfate 90mcg/actuat albuterol sulfate 90mcg/actuat, 2 Puff q 4 hours prn wheezing # 1, 01/22/2024, Ref. x2. Active inhalation q 4 hours prn wheezing; Duration: 30 *Pick strength-form from [employer] for eRX* 01/22/2024 Active Ondansetron 4 MG [...] other day; Duration: 30 *Pick strength-form from [employer] for eRX* 11/09/2019 Active Ozempic 2 mg/dose(8 mg/3 mL Ozempic( 2 mg/dose(8 mg/3 mL subcutaneous 2 mg one weekly ) Active -Hx Entry subcutaneous one weekly; Duration: 0 *Reorder from [facility] for eRx and Interaction Alerts* 11/04/2024 Active atorvastatin 40mg atorvastatin 40mg, 1 (one) Tablet at bedtime for high cholesterol # 90, 09/13/2024, Ref. x1. Active oral at bedtime for high cholesterol; Duration: 90 *Reorder from [facility] for eRx and Interaction Alerts* 09/13/2024 Active Ajovy Autoinjector 225mg/1.5 mL Ajovy Autoinjector( 225mg/1.5 mL subcutaneous 1 every 12 weeks ) Active -Hx Entry subcutaneous every 12 weeks; Duration: 0 *Reorder from [facility] for eRx and Interaction Alerts* 11/04/2024 Active cyclobenzaprine 5mg cyclobenzaprine 5mg, 1 tablet Tablet at bedtime as needed for neck tension # 90, 11/04/2024, Ref. x1. Active oral at bedtime as needed for neck tension; Duration: 90 *Reorder from [facility] for eRx and Interaction Alerts* 11/04/2024 Active cholecalciferol (vitamin D3) 50 mcg(2,000 uni cholecalciferol (vitamin D3) 50 mcg(2,000 uni, 1 (one) Tablet daily # 30, 11/20/2022, No Refill. Active oral daily; Duration: 30 *Reorder from [facility] for eRx and Interaction Alerts* 11/20/2022 Active Nurtec ODT 75mg Nurtec ODT 75mg, 1 (one) Tablet daily at onset of migraine headache # 8, 01/09/2024, Ref. x2. Active oral daily at onset of migraine headache; Duration: 30 *Reorder from [facility] for eRx and Interaction Alerts* 01/09/2024 Active FreeStyle Pihlip 3 Sensor - Miscellaneous FreeStyle Philip 3 [...] Practice [facility] [address] [place] [address] 03/06/2025 Provider Migration Plan Of Treatment No Information Progress Notes * Georgia SWANSON JDOB:[birth year] (50 yo F)Acc No.[id number]:03/06/2025 Patient: Georgia CHRISTIE :1975 A ge:49 Y S ex:Female Address:[address] [place] [id number] Subjective: * Chief Complaints: * E MR-Héctor [...] , Notes to Pharmacist: *Pick strength-form from [employer] for eRX*ALPRAZolam 0.5 MG Tablet ALPRAZolam 0.5mg, 1 (one) tablet two times daily, as needed FOR PANIC ATTACHS # 20, 10/12/2024, No Refill. Active Oral two times daily, as needed FOR PANIC ATTACHS , Notes to Pharmacist: DX: PANIC ATTACkS [place] Controlled Substance Reporting Database reviewed and patient found to be in compliance with prescription.Ferrous Sulfate 325 (65 Fe)MG Ferrous Sulfate 325 (65 Fe)MG, 1 tablet Tablet daily or every other day # 30, 11/09/2019, Ref. x2. Active Oral daily or every other day , Notes to Pharmacist: *Pick strength-form from [employer] for eRX*Ondansetron 4 MG Tablet Disintegrating ondansetron [...] daily , Notes to Pharmacist: *Reorder from [employer] for eRx and Interaction Alerts*Farxiga 10 MG [...] weeks , Notes to Pharmacist: *Reorder from [employer] for eRx and Interaction Alerts*atorvastatin 40mg atorvastatin 40mg, 1 (one) Tablet at bedtime for high cholesterol # 90, 09/13/2024, Ref. x1. Active oral at bedtime for high cholesterol , Notes to Pharmacist: *Reorder from [facility] for eRx and Interaction Alerts*cholecalciferol (vitamin D3) 50 mcg(2,000 uni cholecalciferol (vitamin D3) 50 mcg(2,000 uni, 1 (one) Tablet daily # 30, 11/20/2022, No Refill. Active oral daily , Notes to Pharmacist: *Reorder from [facility] for eRx and Interaction Alerts*cyclobenzaprine 5mg cyclobenzaprine 5mg, 1 tablet Tablet at bedtime as needed for neck tension # 90, 11/04/2024, Ref. x1. Active oral at bedtime as needed for neck tension , Notes to Pharmacist: *Reorder from [facility] for eRx and Interaction Alerts*Nurtec ODT 75mg Nurtec ODT 75mg, 1 (one) Tablet daily at onset of migraine headache # 8, 01/09/2024, Ref. x2. Active oral daily at onset of migraine headache , Notes to Pharmacist: *Reorder from [facility] for eRx and Interaction Alerts*Ozempic 2 mg/dose(8 mg/3 mL Ozempic( 2 mg/dose(8 mg/3 mL subcutaneous 2 mg one weekly ) Active -Hx Entry subcutaneous one weekly , Notes to Pharmacist: *Reorder from [facility] for eRx and Interaction Alerts*Taking Albuterol Sulfate 90mcg/actuat albuterol sulfate 90mcg/actuat, 2 Puff q 4 hours prn wheezing # 1, 01/22/2024, Ref. x2. Active inhalation q 4 hours prn wheezing , Notes to Pharmacist: *Pick strength-form from [facility] for eRX*Taking ALPRAZolam 0.5 MG Tablet ALPRAZolam 0.5mg, 1 (one) tablet two times daily, as needed FOR PANIC ATTACHS # 20, 10/12/2024, No Refill. Active Oral two times daily, as needed FOR PANIC ATTACHS , Notes to Pharmacist: DX: PANIC ATTACkS [place] Controlled Substance Reporting Database reviewed and patient found to be in compliance with prescription.Taking Ferrous Sulfate 325 (65 Fe)MG Ferrous Sulfate 325 (65 Fe)MG, 1 tablet Tablet daily or every other day # 30, 11/09/2019, Ref. x2. Active Oral daily or every other day , Notes to Pharmacist: *Pick strength-form from [facility] for eRX*Taking Ondansetron 4 MG Tablet Disintegrating [...] daily , Notes to Pharmacist: *Reorder from [facility] for eRx and Interaction Alerts*Taking Farxiga 10 MG Tablet Farxiga 10mg, 1 Tablet every morning # 90, 05/07/2024, No Refill. Active Oral every morning Taking FreeStyle Pihlip 3 Sensor - Miscellaneous FreeStyle Philip 3 Sensor( miscellaneous every 14 days ) Active -Hx Entry miscellaneous every 14 days Taking Ajovy Autoinjector 225mg/1.5 mL Ajovy Autoinjector( 225mg/1.5 mL subcutaneous 1 every 12 weeks ) Active -Hx Entry subcutaneous every 12 weeks , Notes to Pharmacist: *Reorder from [facility] for eRx and Interaction Alerts*Taking atorvastatin 40mg atorvastatin 40mg, 1 (one) Tablet at bedtime for high cholesterol # 90, 09/13/2024, Ref. x1. Active oral at bedtime for high cholesterol , Notes to Pharmacist: *Reorder from [facility] for eRx and Interaction Alerts*Taking cholecalciferol (vitamin D3) 50 mcg(2,000 uni cholecalciferol (vitamin D3) 50 mcg(2,000 uni, 1 (one) Tablet daily # 30, 11/20/2022, No Refill. Active oral daily , Notes to Pharmacist: *Reorder from [facility] for eRx and Interaction Alerts*Taking cyclobenzaprine 5mg cyclobenzaprine 5mg, 1 tablet Tablet at bedtime as needed for neck tension # 90, 11/04/2024, Ref. x1. Active oral at bedtime as needed for neck tension , Notes to Pharmacist: *Reorder from [facility] for eRx and Interaction Alerts*Taking Nurtec ODT 75mg Nurtec ODT 75mg, 1 (one) Tablet daily at onset of migraine headache # 8, 01/09/2024, Ref. x2. Active oral daily at onset of migraine headache , Notes to Pharmacist: *Reorder from [facility] for eRx and Interaction Alerts*Taking Ozempic 2 mg/dose(8 mg/3 mL Ozempic( 2 mg/dose(8 mg/3 mL subcutaneous 2 mg one weekly ) Active -Hx Entry subcutaneous one weekly , Notes to Pharmacist: *Reorder from [facility] for eRx and Interaction Alerts* * Allergies: A llergies Reconciled: AllergyAzithromycin *CHEMICALS*: AllergyBanana (Diagnostic) *DIAGNOSTIC PRODUCTS*: AllergyBlueberry Flavor *PHARMACEUTICAL ADJUVANTS*: AllergyErythromycins: AllergyIodine *ANTISEPTICS & DISINFECTANTS*: AllergyLactase *DIETARY PRODUCTS/DIETARY MANAGEMENT PRODU: AllergyMontelukast Sodium *ANTIASTHMATIC AND BRONCHODILAT: AllergyPenicillins: AllergyRaspberry Flavor *PHARMACEUTICAL ADJUVANTS*: AllergyShellfish: Allergy * * Date:
--- OUTSIDE RECORDS SUMMARY | 2025-05-14 03:00 | XMS_ITS ---
Author Organization [facility] are Address [address] [place] [address] Care Team Providers Care Pattern Weaver Name Role Phone MRS. Sunni Ramon Primary Care Provider Benedicto Talley MD Unavailable Unavailable Migration, Provider Unavailable Unavailable REASON FOR VISIT EMR-[facility] Encounters Encounter Location Date Provider Diagnosis [facility] [address] [place] [address] 05/14/2025 Provider Migration Plan Of Treatment Medication [...] eating; Duration: 3 07/02/2018 9 *Reorder from [facility] for eRx and Interaction Alerts* Lisinopril 5 [...] daily; Duration: 0 12/08/2020 *Pick strength-form from [facility] for eRX* Furosemide 20mg furosemide 20mg, 1 ( one) Tablet once daily # 30, 06/07/2022, Ref. x5. Inactive oral once daily; Duration: 30 06/07/2022 4 *Pick strength-form from [facility] for eRX* Gabapentin 300mg gabapentin( 300mg or al 1 three times daily ) Inactive -Hx Entry oral three times daily; Duration: 0 10/02/2024 5 *Pick strength-form from [facility] for eRX* Depakote 500 MG Tablet Delayed [...] Duration: 7 11/21/2020 1 *Pick strength-form from [facility] for eRX* Flomax 0.4MG Flomax 0.4MG, 1 (one ) Capsule daily as needed for kidney stones # 30, 02/10/2020, Ref. x1. Inactive Oral daily as needed for kidney stones; Duration: 30 02/10/2020 0 *Reorder from [facility] for eRx and Interaction Alerts* Cyclobenzaprine HCl [...] daily; Duration: 5 05/14/2021 *Pick strength-form from [facility] for eRX* Benzonatate 200MG Benzonatate 200MG, 1 (one) Capsule every 8 hours prn cough # 21, 06/21/2021, No Refill. Inactive Oral every 8 hours prn cough; Duration: 7 06/21/2021 2 *Pick strength-form from [employer] for eRX* Bromfed DM 30-2-10MG/5ML Bromfed DM 30-2-10MG/5ML, 10 Milliliter every 8 hours as needed for congestion and cough # 200, 07/17/2020, No Refill. Inactive Oral every 8 hours as needed for congestion and cough; Duration: 10 07/17/2020 1 *Reorder from [facility] for eRx and Interaction Alerts* Estalrpjia-ZOSB-Iuqfiuzt 50-325-40 MG Capsule Sofbgeybwr-BLDA-Fjflfovv 50-325-40MG, 1 (one) Capsule every 4-6 hours [...] weekly; Duration: 30 05/07/2024 5 *Reorder from [facility] for eRx and Interaction Alerts* Pravastatin 20mg pravastatin 20mg, 1 Tablet daily # 30, 09/12/2023, No Refill. Inactive oral daily; Duration: 30 09/12/2023 4 *Reorder from [facility] for eRx and Interaction Alerts* promethazine 6.25mg/5 mL promethazine 6. 25mg/5 mL, 4 Milliliter every 6 hours as needed for nausea # 360, 07/24/2022, No Refill. Inactive oral every 6 hours as needed for nausea; Duration: 5 07/24/2022 3 *Reorder from [facility] for eRx and Interaction Alerts* tamsulosin 0.4mg tamsulosin 0.4mg, 1 (one) Capsule daily # 7, 04/03/2022, No Refill. Inactive oral daily; Duration: 7 04/03/2022 3 *Reorder from [facility] for eRx and Interaction Alerts* Meclizine 12.5mg meclizine 12.5mg, 1 Tablet 2 to 3 times per day as needed for dizziness # 30, 09/06/2024, No Refill. Inactive oral 2 to 3 times per day as needed for dizziness; Duration: 0 09/06/2024 5 *Reorder from [facility] for eRx and Interaction Alerts* HumaLOG KwikPen Insulin 100unit/mL HumaLOG KwikPen Insulin 100unit/mL, 5 units subcutaneous three times a day with breakfast, lunch, and dinner # 5, 03/10/2024, Ref. x5. Inactive subcutaneous subcutaneous three times a day with breakfast, lunch, and dinner; Duration: 30 03/10/2024 4 *Reorder from [facility] for eRx and Interaction Alerts* Lantus Solostar U-100 Insulin 100 unit/mL(3 mL) Lantus Solostar U-100 Insulin 100 unit/mL(3 mL), 20 units at bedtime # 10, 05/07/2024, Ref. x5. Inactive subcutaneous at bedtime; Duration: 30 05/07/2024 5 *Reorder from [facility] for eRx and Interaction Alerts* Ozempic 2 mg/dose(8 mg/3 mL Ozempic 2 mg/dose(8 mg/3 mL, 2 (two) milligram SQ once weekly # 9, 03/14/2023, No Refill. Inactive subcutaneous SQ once weekly; Duration: 90 03/14/2023 3 *Reorder from [facility] for eRx and Interaction Alerts* Ozempic 0.25 mg or 0.5mg (2 mg/3 Ozempic 0.25 mg or 0.5mg (2 mg/3, 0.5 mg weekly # 3, 12/11/2023, No Refill. Inactive subcutaneous weekly; Duration: 28 12/11/2023 4 *Reorder from [facility] for eRx and Interaction Alerts* cyclobenzaprine 5mg cyclobenzaprine 5mg, 1 (one) Tablet three times daily # 15, 04/03/2022, No Refill. Inactive oral three times daily; Duration: 5 04/03/2022 3 *Reorder from [facility] for eRx and Interaction Alerts* Dexcom G5 Pst Supervisor Kit Dexcom G5 Receive r Kit , 1 (one) Device as directed # 1, 11/10/2020, Ref. x11. Inactive as directed; Duration: 14 11/10/2020 1 DX: UNCONTROLLED INSULLIN DEPENDENT DIABETES FreeStyle Philip 2 [place] - Device FreeStyle Philip 2 [place] , 1 (one) Device as directed # [...] week; Duration: 84 03/11/2024 4 *Reorder from [facility] for eRx and Interaction Alerts* Dexcom G5 [...] for B-Cise was sent instead *Reorder from [facility] for eRx and Interaction Alerts* Trelegy Ellipta 100-62.5-25 MCG/ACT Aerosol Powder Breath Activated Trelegy Ellipta 100-62.5-25mcg, 1 inhalation daily # 28, 03/10/2024, Ref. x1. Inactive Inhalation daily; Duration: 28 03/10/2024 5 BD Pen Needle Micro U/F BD Pen Needle Mi microstrategy developer U/F , 1 (one) needle to be [...] 0 Soliqua 100-33 UNT-MCG/ML Solution Pen-injector Soliqua [id number]-FPS/ML, 10 units at bedtime daily for type [...] Duration: 30 10/28/2018 9 *Pick strength-form from [facility] for eRX* Bydureon 2MG Bydureon 2MG, 2 (two ) mg once weekly # 4, 08/30/2020, Ref. x5. Inactive Subcutaneous once weekly; Duration: 30 08/30/2020 *Reorder from [facility] for eRx and Interaction Alerts* metFORMIN HCl [...] needed; Duration: 30 06/14/2019 0 *Reorder from [facility] for eRx and Interaction Alerts* ZyrTEC-D Allergy & Congestion 5-120MG ZyrTEC-D Allergy & Congestion 5-120MG, 1 (one) Tablet daily # 20, 08/11/2018, No Refill. Inactive Oral daily; Duration: 20 08/11/2018 9 *Pick strength-form from [facility] for eRX* Vitamin B 12 500MCG Vitamin B 12( 500MCG Oral 1 tablet daily ) Inactive -Hx Entry Oral daily; Duration: 0 12/08/2020 *Pick strength-form from [facility] for eRX* B-6 100MG B-6( 100MG Oral 1 da geoff ) Inactive -Hx Entry Oral daily; Duration: 0 12/24/2020 *Pick strength-form from [employer] for eRX* Dulera 100-5 MCG/ACT Aerosol [...] Duration: 10 08/11/2020 1 *Pick strength-form from [employer] for eRX* Zofran 4MG Zofran( 4MG Oral 1 d aily ) Inactive -Hx Entry Oral daily; Duration: 0 07/06/2019 *Reorder from [facility] for eRx and Interaction Alerts* Zoloft 50 [...] Duration: 0 07/22/2018 9 *Pick strength-form from [employer] for eRX* Ventolin HFA 108 (90 [...] wheezing; Duration: 30 11/21/2020 1 *Reorder from [employer] for eRx and Interaction Alerts* Promethazine HCl [...] daily; Duration: 0 07/16/2018 *Pick strength-form from [employer] for eRX* Phentermine HCl 37.5 MG Tablet [...] Notes * SWANSONGeorgiaDOB:[birth year] (50 yo F)Acc No.[id number]:05/14/2025 Patient: [place] CHRISTIE :1975 A ge:49 Y S ex:Female Address:[address] [place] [address] * Refills Stop Meclizine, 12.5mg, oral, 30, [...] needed for congestion and cough, 10 Stop Lbxjfkbjzs-XDYK-Uvppgnbp Capsule, 50-325-40 MG, Oral, 15, Nvwaefbsdk-XZFR-Nwlfxekh 50-325-40MG, 1 (one) Capsule every 4-6 hours [...] Solution Pen-injector, 100-33 UNT-MCG/ML, Subcutaneous, 1, Soliqua [id number]/ML, 10 units at bedtime daily for type [...] Inactive, as directed, 90 Stop Dexcom G5 Pst Supervisor Kit, 1, Dexcom G5 Pst Supervisor Kit , 1 (one) Device as directed # 1, 11/10/2020, Ref. x11. Inactive, as directed, 14 Stop FreeStyle Philip 2 [place] Device, - , 1, FreeStyle Philip 2 [place] , 1 (one) Device as directed # [...]
--- OUTSIDE RECORDS SUMMARY | 2025-05-15 03:00 | XMS_ITS ---
Author Organization [facility] are Address [address] [place] [address] Care Team Providers Care Sap Payroll Consultant Name Role Phone MRS. Sunni Ramon Primary [...] Shellfish (FN) Shellfish (uncoded) Unknown Allergy Active azithromycin Azithromycin Unknown Drug Allergy A ctive Blueberry Flavor Unknown Drug Allergy Active erythromycin Erythromycin Unknown Drug Allergy A ctive Iodine Unknown Drug Allergy Active banana allergenic extract Banana (Diagnostic) Unknown Drug Allergy Active Substance with penicillin structure and antibacterial mechanism of action (substance) Penicillins Unknown Drug Allergy Active Shellfish (FN) Shellfish-derived Products Unknown Drug Allergy Active REASON FOR VISIT EMR-[facility] Medications Medication SIG (Take, Route, Frequency, Duration) Notes Start Date End Date Status cyclobenzaprine 5mg cyclobenzaprine 5mg, 1 tablet Tablet at bedtime as needed for neck tension # 90, 11/04/2024, Ref. x1. Active oral at bedtime as needed for neck tension; Duration: 90 *Reorder from [facility] for eRx and Interaction Alerts* 11/04/2024 Active cholecalciferol (vitamin D3) 50 mcg(2,000 uni cholecalciferol (vitamin D3) 50 mcg(2,000 uni, 1 (one) Tablet daily # 30, 11/20/2022, No Refill. Active oral daily; Duration: 30 *Reorder from [facility] for eRx and Interaction Alerts* 11/20/2022 Active Ozempic 2 mg/dose(8 mg/3 mL Ozempic( 2 mg/dose(8 mg/3 mL subcutaneous 2 mg one weekly ) Active -Hx Entry subcutaneous one weekly; Duration: 0 *Reorder from [facility] for eRx and Interaction Alerts* 11/04/2024 Active Nurtec ODT 75mg Nurtec ODT 75mg, 1 (one) Tablet daily at onset of migraine headache # 8, 01/09/2024, Ref. x2. Active oral daily at onset of migraine headache; Duration: 30 *Reorder from [facility] for eRx and Interaction Alerts* 01/09/2024 Active atorvastatin 40mg atorvastatin 40mg, 1 (one) Tablet at bedtime for high cholesterol # 90, 09/13/2024, Ref. x1. Active oral at bedtime for high cholesterol; Duration: 90 *Reorder from [facility] for eRx and Interaction Alerts* 09/13/2024 Active BreatheRite Valved MDI Chamber - Device BreatheRite Valved MDI Chamber , 1 (one) device use with albuterol inhaler as needed # 1, 05/14/2024, No Refill. Active miscellaneous use with albuterol inhaler as needed; Duration: 0 05/14/2024 Active Farxiga 10 MG Tablet Farxiga 10mg, 1 Tablet every morning # 90, 05/07/2024, No Refill. Active Oral every morning; Duration: 90 05/07/2024 Active Folic Acid Xtra Folic Acid Xtra( Ora l 1 (one) daily ) Active -Hx Entry Oral daily; Duration: 30 *Reorder from [facility] for eRx and Interaction Alerts* 04/27/2021 Active FreeStyle Hpilip 3 Sensor - Miscellaneous FreeStyle Philip 3 Sensor( miscellaneous every 14 days ) Active -Hx Entry miscellaneous every 14 days; Duration: 0 11/04/2024 Active Ajovy Autoinjector 225mg/1.5 mL Ajovy Autoinjector( 225mg/1.5 mL subcutaneous 1 every 12 weeks ) Active -Hx Entry subcutaneous every 12 weeks; Duration: 0 *Reorder from [facility] for eRx and Interaction Alerts* 11/04/2024 Active Ondansetron 4 MG Tablet Disintegrating ondansetron [...] other day; Duration: 30 *Pick strength-form from [email or web address] for eRX* 11/09/2019 Active Vitamin B-12 1000 MCG Tablet Vitamin B-12 1000MCG, 1 (one) Tablet daily # 30, 04/27/2021, No Refill. Active Oral daily; Duration: 30 04/27/2021 Active PROzac 20mg PROzac 20mg, 1 Capsule daily # 90, 12/04/2024, No Refill. Active oral daily; Duration: 90 *Reorder from [facility] for eRx and Interaction Alerts* 12/04/2024 Active Vitamin B-6 25 MG Tablet Vitamin B-6 25MG, 1 (one) Tablet daily # 30, 04/27/2021, No Refill. Active Oral daily; Duration: 30 04/27/2021 Active Albuterol Sulfate 90mcg/actuat albuterol sulfate 90mcg/actuat, 2 Puff q 4 hours prn wheezing # 1, 01/22/2024, Ref. x2. Active inhalation q 4 hours prn wheezing; Duration: 30 *Pick strength-form from [email or web address] for eRX* 01/22/2024 Active ALPRAZolam 0.5 MG Tablet ALPRAZolam 0.5mg, 1 (one) tablet two times daily, as needed FOR PANIC ATTACHS # 20, 10/12/2024, No Refill. Active Oral two times daily, as needed FOR PANIC ATTACHS; Duration: 10 DX: PANIC ATTACkS [place] Controlled Substance Reporting Database reviewed and patient found to be in compliance with prescription. 10/12/2024 Active Social History Social History Additional Details Category Social Info Options Details Migrated Social History Migrated Social History Problem Title : No drug use, Problem Status : Active,, Problem Title : No alcohol use, Problem Status : Active,, Problem Title : Tobacco use, Problem Status : Active, Attribute Title : Never smoker Encounters Encounter Location Date Provider Diagnosis Count [facility]cludes [facility] [address] [facility] [address] 05/15/2025 Provider Migration Plan Of Treatment No Information Progress Notes * Georgia ARAGONDOB:[birth year] (50 yo F)Acc No.[id number]:05/15/2025 Patient: [place] CHRISTIE :1975 A ge:49 Y S ex:Female Address:[address] [place] [address] Subjective: * Chief Complaints: * E MR-[facility] [...] , Notes to Pharmacist: *Pick strength-form from [employer] for eRX*ALPRAZolam 0.5 MG Tablet ALPRAZolam 0.5mg, 1 (one) tablet two times daily, as needed FOR PANIC ATTACHS # 20, 10/12/2024, No Refill. Active Oral two times daily, as needed FOR PANIC ATTACHS , Notes to Pharmacist: DX: PANIC ATTACkS [place] Controlled Substance Reporting Database reviewed and patient found to be in compliance with prescription.Ferrous Sulfate 325 (65 Fe)MG Ferrous Sulfate 325 (65 Fe)MG, 1 tablet Tablet daily or every other day # 30, 11/09/2019, Ref. x2. Active Oral daily or every other day , Notes to Pharmacist: *Pick strength-form from [employer] for eRX*Ondansetron 4 MG Tablet Disintegrating ondansetron 4mg, 1 (one) Tablet as needed for nausea # 30, 02/25/2024, No Refill. Active Oral as needed for nausea PROzac 20mg PROzac 20mg, 1 Capsule daily # 90, 12/04/2024, No Refill. Active oral daily , Notes to Pharmacist: *Reorder from [employer] for eRx and Interaction Alerts*Vitamin B-12 1000 MCG Tablet Vitamin B-12 1000MCG, [...] daily , Notes to Pharmacist: *Reorder from [employer] for eRx and Interaction Alerts*Farxiga 10 MG [...] weeks , Notes to Pharmacist: *Reorder from [facility] for eRx and Interaction Alerts*atorvastatin 40mg atorvastatin 40mg, 1 (one) Tablet at bedtime for high cholesterol # 90, 09/13/2024, Ref. x1. Active oral at bedtime for high cholesterol , Notes to Pharmacist: *Reorder from [facility] for eRx and Interaction Alerts*cholecalciferol (vitamin D3) 50 mcg(2,000 uni cholecalciferol (vitamin D3) 50 mcg(2,000 uni, 1 (one) Tablet daily # 30, 11/20/2022, No Refill. Active oral daily , Notes to Pharmacist: *Reorder from [facility] for eRx and Interaction Alerts*cyclobenzaprine 5mg cyclobenzaprine 5mg, 1 tablet Tablet at bedtime as needed for neck tension # 90, 11/04/2024, Ref. x1. Active oral at bedtime as needed for neck tension , Notes to Pharmacist: *Reorder from [facility] for eRx and Interaction Alerts*Nurtec ODT 75mg Nurtec ODT 75mg, 1 (one) Tablet daily at onset of migraine headache # 8, 01/09/2024, Ref. x2. Active oral daily at onset of migraine headache , Notes to Pharmacist: *Reorder from [facility] for eRx and Interaction Alerts*Ozempic 2 mg/dose(8 mg/3 mL Ozempic( 2 mg/dose(8 mg/3 mL subcutaneous 2 mg one weekly ) Active -Hx Entry subcutaneous one weekly , Notes to Pharmacist: *Reorder from [facility] for eRx and Interaction Alerts*Taking Albuterol Sulfate 90mcg/actuat albuterol sulfate 90mcg/actuat, 2 Puff q 4 hours prn wheezing # 1, 01/22/2024, Ref. x2. Active inhalation q 4 hours prn wheezing , Notes to Pharmacist: *Pick strength-form from [facility] for eRX*Taking ALPRAZolam 0.5 MG Tablet ALPRAZolam 0.5mg, 1 (one) tablet two times daily, as needed FOR PANIC ATTACHS # 20, 10/12/2024, No Refill. Active Oral two times daily, as needed FOR PANIC ATTACHS , Notes to Pharmacist: DX: PANIC ATTACkS [place] Controlled Substance Reporting Database reviewed and patient found to be in compliance with prescription.Taking Ferrous Sulfate 325 (65 Fe)MG Ferrous Sulfate 325 (65 Fe)MG, 1 tablet Tablet daily or every other day # 30, 11/09/2019, Ref. x2. Active Oral daily or every other day , Notes to Pharmacist: *Pick strength-form from [employer] for eRX*Taking Ondansetron 4 MG Tablet Disintegrating ondansetron 4mg, 1 (one) Tablet as needed for nausea # 30, 02/25/2024, No Refill. Active Oral as needed for nausea Taking PROzac 20mg PROzac 20mg, 1 Capsule daily # 90, 12/04/2024, No Refill. Active oral daily , Notes to Pharmacist: *Reorder from [employer] for eRx and Interaction Alerts*Taking Vitamin B-12 1000 MCG Tablet Vitamin B-12 [...] daily , Notes to Pharmacist: *Reorder from [employer] for eRx and Interaction Alerts*Taking Farxiga 10 [...] weeks , Notes to Pharmacist: *Reorder from [facility] for eRx and Interaction Alerts*Taking atorvastatin 40mg atorvastatin 40mg, 1 (one) Tablet at bedtime for high cholesterol # 90, 09/13/2024, Ref. x1. Active oral at bedtime for high cholesterol , Notes to Pharmacist: *Reorder from [facility] for eRx and Interaction Alerts*Taking cholecalciferol (vitamin D3) 50 mcg(2,000 uni cholecalciferol (vitamin D3) 50 mcg(2,000 uni, 1 (one) Tablet daily # 30, 11/20/2022, No Refill. Active oral daily , Notes to Pharmacist: *Reorder from [facility] for eRx and Interaction Alerts*Taking cyclobenzaprine 5mg cyclobenzaprine 5mg, 1 tablet Tablet at bedtime as needed for neck tension # 90, 11/04/2024, Ref. x1. Active oral at bedtime as needed for neck tension , Notes to Pharmacist: *Reorder from [facility] for eRx and Interaction Alerts*Taking Nurtec ODT 75mg Nurtec ODT 75mg, 1 (one) Tablet daily at onset of migraine headache # 8, 01/09/2024, Ref. x2. Active oral daily at onset of migraine headache , Notes to Pharmacist: *Reorder from [facility] for eRx and Interaction Alerts*Taking Ozempic 2 mg/dose(8 mg/3 mL Ozempic( 2 mg/dose(8 mg/3 mL subcutaneous 2 mg one weekly ) Active -Hx Entry subcutaneous one weekly , Notes to Pharmacist: *Reorder from [facility] for eRx and Interaction Alerts* * Allergies: A llergies Reconciled: AllergyAzithromycin: AllergyAzithromycin *CHEMICALS*: AllergyBanana (Diagnostic): AllergyBlueberry Flavor: AllergyBlueberry Flavor *PHARMACEUTICAL ADJUVANTS*: AllergyErythromycin: AllergyIodine: AllergyIodine *ANTISEPTICS & DISINFECTANTS*: AllergyLactase *DIETARY PRODUCTS/DIETARY MANAGEMENT PRODU: AllergyMontelukast Sodium *ANTIASTHMATIC AND BRONCHODILAT: AllergyPenicillins: AllergyRaspberry Flavor *PHARMACEUTICAL ADJUVANTS*: AllergyShellfish: AllergyShellfish-derived Products: Allergy * * Date:
[2025-06-06 22:16] VITALS: BP 126/76; PULSE 71; RESP 14; TEMP 36.3; O2SAT 100; BMI 44.6
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
--- OUTSIDE RECORDS SUMMARY | 2025-06-06 22:21 | XMS_ITS | Encounter Summary ---
Author Organization [facility]ly [facility], later [facility] Address [address] [place] [address] Care Team Providers Care Invoice Clerk Name Role Phone Aislinn Merlos Primary Care Provider [phone] Encounter Details Date Type Department Care Team (Late st Contact Info) Description 10/07/2024 OnBase Documentation On File [address] [place] [address] Social History Tobacco Use Types Packs/Day Years Used Date Smoking Tobacco: Never Smokeless Tobacco: Never Alcohol Use Standard Drinks/Week Comments Not Currently 0 (1 standard drink = 0.6 oz pur e alcohol) [facility] Utilities Answer Date Recorded In the past 12 months has e electric, gas, oil, or water company threatened to shut off services in your home? Yes 05/31/2024 Overall Financial Resource Strain (CARDIA) Answe r Date Recorded How hard is it for you to pa y for the very basics like food, housing, medical care, and heating? Somewhat hard 05/31/2024 PHQ-2 Answer Date Recorded Patient Health Questionnaire-2 Score 6 05/31/2024 [facility] - Occupational Stress Questionnaire Answer Date Recorded Do you feel stress - tense, restless, nervous, or anxious, or unable to sleep at night because your mind is troubled all the time - these days? Very much 05/31/2024 Hunger Vital Sign Answer Date Recorded Within the past 12 months, y ou worried that your food would run out before you got the money to buy more. Often true 05/31/20 24 Within the past 12 months, t he food you bought just didn't last and you didn't have money to get more. Often true 05/31/2024 PRAPARE - Transportation Answer Date Re corded In the past 12 months, has l ack of transportation kept you from medical appointments or from getting medications? Yes 07/2023 In the past 12 months, has l ack of transportation kept you from meetings, work, or from getting things needed for daily living? Yes 05/31/2024 PHQ-9 Answer Date Recorded Patient Health Questionnaire-9 Score 25 05/31/2024 Housing Stability Vital Sign Answer Ricardo e Recorded In the last 12 months, was t here a time when you were not able to pay the mortgage or rent on time? Yes 05/31/2024 In the past 12 months, how m any times have you moved where you were living? 0 05/31/2024 At any time in the past 12 m onths, were you homeless or living in a fci (including now)? No 05/31/2024 Interpersonal Safety Answer Date Record ed Is Anyone Hurting/Threatening You or Making You Feel Afraid? No 08/13/2021 Is Anyone Hurting/Threatening You or Making You Feel Afraid? No 08/13/2021 Comments Unknown Sex and Gender Information Value Date Recorded Sex Assigned at Female 07/03/2019 11:59 AM EST Legal Sex Female 10:09 AM EST Gender Identity Female 07/03/2019 11:59 AM EST Sexual Orientation Bisexual 07/03/2019 11 :59 AM EST documented as of this encounter Functional Status * Are you deaf or do you have serious difficulty hearing? Answer Date of Assessment Author No 02/22/2020 8:31 PM Quincy Aguirre RN * Are you blind or do you have serious difficulty seeing, even when wearing glasses? Answer Date of Assessment Author No 02/22/2020 8:31 PM Quincy Aguirre RN * Do you have serious difficulty walking or climbing stairs? (5 years old or older) Answer Date of Assessment Author Yes 02/22/2020 8:31 PM Quincy Aguirre RN * Do you have difficulty dressing or bathing? (5 years old or older) Answer Date of Assessment Author No 02/22/2020 8:31 PM Quincy Aguirre RN * Because of a physical, mental, or emotional condition, do you have difficulty doing errands alone such as visiting a doctor???s office or shopping? (15 years old or older) Answer Date of Assessment Author Yes 02/22/2020 8:31 PM EDT Quincy Pierson RN documented as of this encounter Mental Status * Because of a physical, mental, or emotional condition, do you have serious difficulty concentrating, remembering, or making decisions? (5 years old or older) Answer Entry Date Author Yes 02/22/2020 8:31 PM EDT Quincy Pierson RN documented in this encounter Plan of Treatment Upcoming Encounters Date Type Department Care Team (Late st Contact Info) Description 10/25/2025 11:00 AM EDT Telemedicine [facility] [address] [place] [address] Christophe Crowley NP [address] [place] [address] Follow-up disposition: Return in about 6 months (around 10/25/2025) for Christophe, video visit, Tuesdays. documented as of this encounter Visit Diagnoses Not on filedocumented in this encounter Care Teams Invoice Clerk Relationship Specialty Start Date End Date Aislinn Merlos PA [address] [place] [address] PCP - General 08/13/21 documented as of this encounter
--- OUTSIDE RECORDS SUMMARY | 2025-06-06 22:23 | XMS_ITS | Clinical Summary ---
Author Organization [facility] Address [address] [place] [address], [facility] [address] [place] [address] Phone Care Team Providers [facility] Name Role Phone Unavailable Primary Care Provider Unavailabl e Allergies Active Allergy Reactions Criticality Noted Date Comments Avocado Anaphylaxis High 05/10/2024 Azithromycin Hives,Rash,Shortne ss of breath High 09/29/2007 Banana Itching High 09/26/2010 Bee Venom Swelling 05/10/2024 Duloxetine Hcl Unknown 05/10/2024 Other Reaction(s): Anxiety, Fever Erythromycin Hives,Rash,Shortne ss of breath High 11/26/2007 Other Reaction(s): Hives, Shortness Of Breath Gadolinium Derivatives Anaphylaxis,Hives , Other,Palpitations ,Rash High 11/10/2013 Other Reaction(s): Seizure, Drop In Blood Pressure, Seizures Influenza Virus Vacc Split Pf Hives Medium 12/24/2016 Reports kidney infection after flu shot, fall 2003 Iodine Anaphylaxis High 01/11/2009 Metoclopramide Palpitations,Unkno wn High 08/17/2018 Other Reaction(s): Loss Of Bowel And Bladder Control, Severe Tachycardia 160-180 lose control of bowels and raises HR. Montelukast Hallucinations,Oth er,Unknown High 04/21/2014 Other Reaction(s): Psychosis psychosis psychosis, worsening depression psychosis, worsening depression Other reaction(s): Hallucinations Nitroglycerin Other,Unknown High 05/08/2015 Other Reaction(s): Drop In Blood Pressure Pt reports severe hypotension, BP's dropping to 80/50 or less, when given nitroglycerin Pt reports severe hypotension, BP's dropping to 80/50 or less, when given nitroglycerin Other reaction(s): Other Nsaids GI bleeding,Other Medium 09/11/2017 Hx of gastric ulcers Penicillins Hives,Rash,Shortne ss of breath High 09/29/2007 Other Reaction(s): Hives, Shortness Of Breath Prochlorperazine Rash High 10/22/2017 Other Reaction(s): Uncontrolled Bladder And Bowel Function Extreme agitation, loss of bodily functions. Extreme agitation, loss of bodily functions. Raspberry Itching Medium 09/26/2010 Shellfish Protein-Containing Drug Products Anaphylaxis,Hives High 01/11/2009 Tapentadol Hives,Itching,Rash ,Unknown Medium 12/08/2014 Tilactase Diarrhea,Other,Unk nown High 01/15/2010 Other reaction(s): Other Vaccinium Angustifolium Itching High 09/26/2010 Medications acetaminophen (Tylenol) 500 MG tablet Take 500 mg by mouth every 6 (six) hours if needed for mild pain or moderate pain. Active albuterol 108 (90 Base) MCG/ACT inhaler Inhale 2 puffs every 6 (six) hours if needed. Active atorvastatin (Lipitor) 40 MG tablet Take 40 mg by mouth 1 (one) time each day. 4 Active cholecalciferol (Vitamin D-3) 50 MCG (2000 UT) tablet Take 2,000 Units by mouth 1 (one) time each day. Active Continuous Glucose Sensor (FreeStyle Philip 2 Sensor) [facility] USE ONE sensor replace sensor EVERY 14 DAYS for 28 Days Active cyanocobalamin (Vitamin B-12) 500 MCG tablet Take 1,000 mcg by mouth 1 (one) time each day. 7 Active cyclobenzaprine (Flexeril) 10 MG tablet Take 5 mg by mouth. 4 Active dapagliflozin (Farxiga) 10 MG Take 10 mg by mouth 1 (one) time each day. 4 Active ferrous sulfate 325 (65 Fe) MG tablet Take 325 mg by mouth 1 (one) time each day at the same time. 5 Active Trelegy Ellipta 100-62.5-25 MCG/ACT aerosol powder Inhale 1 Inhalation. Active folic acid (Folvite) 400 MCG tablet Take 400 mcg by mouth 1 (one) time each day. 7 Active Ajovy 225 MG/1.5ML solution auto-injector Inject 675 mg under the skin. 4 Active insulin glargine (Lantus) 100 UNIT/ML injection Inject 20 Units under the skin every night. Active lisinopril 10 MG tablet Take 1 tablet by mouth 1 (one) time each day. 4 Active ondansetron ODT (Zofran-ODT) 4 MG disintegrating tablet 4 mg every 8 (eight) hours if needed for nausea or vomiting. 8 Active pyridoxine (B-6) 100 MG tablet Take 100 mg by mouth 1 (one) time each day. Active Ozempic, 1 MG/DOSE, 4 MG/3ML solution pen-injector Inject 1 mg under the skin. 4 Active Rimegepant Sulfate 75 MG tablet dispersible Take by mouth. 1 Active Active Problems No known active problems Social History Tobacco Use Types Packs/Day Years Used Date Smoking Tobacco: Never Smokeless Tobacco: Never Tobacco Cessation:Counseling Given: Not Answered Alcohol Use Standard Drinks/Week Comments Never 0 (1 standard drink = 0.6 oz pur e alcohol) Comments No Sex and Gender Information Value Date Recorded Sex Assigned at Not on file Legal Sex Female 3:26 PM EST Gender Identity Not on file Sexual Orientation Not on file Last Filed Vital Signs Vital Sign Reading Time Taken Comments Blood Pressure 104/72 05/10/2024 3:49 PM EST Pulse 105 05/10/2024 3:49 PM EST Temperature 36.7 C (98 F) 05/10/2024 3:49 PM EST Respiratory Rate 17 05/10/2024 3:49 PM EST Oxygen Saturation 96% 05/10/2024 3:49 PM EST Inhaled Oxygen Concentration - - Weight 120 kg (264 lb 12.8 oz) 05/10/2024 3:49 P M EST Height 162.6 cm (5' 4 ) 05/10/2024 3:49 PM EST Body Mass Index 45.45 05/10/2024 3:49 PM EST Plan of Treatment Health Maintenance Due Date Last Done Comments Annual Preventative Visit (APV) 1976 CT Colonography 1976 Cologuard (aka FIT-DNA) 1976 Diabetes: Hemoglobin A1C 1976 FOBT 1976 HIV Screening 1976 Lipid Panel 1976 Sigmoidoscopy 1976 Kidney Function Lab Follow Up 1976 Diabetes: Foot Exam 1986 Diabetes: Retinopathy Screening 1986 Depression Screening 1988 Pneumococcal Vaccine (1 of 2 - PCV) 1995 HPV/Cotest 2006 Mammogram 2016 FIT 12/17/2023 12/16/2022, 05/0 07/2021, 09/13/2020, Additional history exists Cervical Cancer Screening 11/01/2024 Pap Smear 11/01/2024 11/01/2021 Influenza Vaccine (#1) 2025 Colonoscopy 12/16/2032 12/16/2022, 05/0 07/2021, 09/13/2020, Additional history exists Colorectal Cancer Screening 12/16/2032 Meningococcal B Vaccine Aged Out No l onger eligible based on patient's age to complete this topic Insurance [employer]
--- OUTSIDE RECORDS SUMMARY | 2025-06-06 22:23 | XMS_ITS | Encounter Summary ---
Author Organization [facility] Address [address] [place] [address] Care Team Providers Care Floor Manager Name Role Phone Naila Vallejo MD Primary Care Provider [phone] Aislinn Merlos Primary Care Provider [phone] Sandra Wood Unavailable Unavailable Serena Meyer Unavailable Unavailable Krys Oropeza RN Unavailable Unavailable Reason for Visit * Reason Onset Date Comments Obesity 05/11/2015 Med/Surg Encounter Details Date Type Department Care Team (Late st Contact Info) Description 05/11/2015 Documentation [facility] [address] [place] [phone] Tawny Chaudhary Obesity (Med/Surg) Social History Tobacco Use Types Packs/Day Years Used Date Smoking Tobacco: Never Assessed Comments Unknown Sex and Gender Information Value Date Recorded Sex Assigned at Female 07/03/2019 11:59 AM EST Legal Sex Female 10:09 AM EST Gender Identity Female 07/03/2019 11:59 AM EST Sexual Orientation Bisexual 07/03/2019 11 :59 AM EST documented as of this encounter Plan of Treatment Upcoming Encounters Date Type Department Care Team (Late Contact Info) Description 10/25/2025 11:00 AM EDT Telemedicine [facility] [address] [place] [id number] Christophe Crowley NP [address] [place] [address] Follow-up disposition: Return in about 6 months (around 10/25/2025) for Riddhiing, video visit, Tuesdays. documented as of this encounter Visit Diagnoses Not on filedocumented in this encounter Care Teams Floor Manager Relationship Specialty Start Date End Date Naila Vallejo MD [address] [place] [address] PCP - General Family Medicine 05/11/15 08/12/21 Aislinn Merlos PA [address] [place], [place] [id number] PCP - General 08/13/21 Sandra Wood [facility] 05/13/2405/01 Serena Meyer [facility] 05/24/2406/01 Krys Oropeza, non ferrous material handler [facility] 06/01/24 4 documented as of this encounter
--- OUTSIDE RECORDS SUMMARY | 2025-06-06 22:26 | XMS_ITS | Clinical Summary ---
Author Organization [facility] Address [address] [place] [address] Care Team Providers Care Database Analyst Name Role Phone Aislinn Merlos Primary Care Provider Allergies Active Allergy Reactions Criticality Noted Date Comments Avocado Anaphylaxis High 04/02/2019 Azithromycin Hives,Shortness Of Breath High 09/29/2007 Banana Itching High 09/26/2010 Bee Venom Protein (Honey Bee) Swelling Medium 03/11/2019 Blueberry Itching High 09/26/2010 Duloxetine Other (See Comments) High 06/29/2019 Erythromycin Hives,Rash,Shortnes s Of Breath High 11/26/2007 Erythromycin Base Hives 01/24/2019 Gadolinium-Containing Contrast Media Other (See Comments),Palpitati ons,Rash High 11/10/2013 Influenza Virus Vac. Tri-Split Hives Medium 12/24/2016 Reports kidney infection after flu shot, fall 2003 Influenza Virus Vaccine, Specific Other (See Comments) High 06/29/2019 Iodinated Contrast Media Anaphylaxis High 06/13/2015 Iodine And Iodide Containing Products Anaphylaxis High 01/11/2009 Lactase Other (See Comments) High 01/15/2010 Latex Itching,Rash 12/06/2024 Metoclopramide Hcl Palpitations High 08/17/2018 lose control of bowels and raises HR. Montelukast Other (See Comments) High 04/21/2014 psychosis psychosis, worsening depression Nitroglycerin Other (See Comments) High 05/08/2015 Pt reports severe hypotension, BP's dropping to 80/50 or less, when given nitroglycerin Nsaids (Non-Steroidal Anti-Inflammatory Drug) Other (See Comments) Medium 09/11/2017 Hx of gastric ulcers Penicillins Hives,Rash,Shortnes s Of Breath High 09/29/2007 Prochlorperazine Rash High 10/22/2017 Extreme agitation, loss of bodily functions. Raspberry Itching Medium 09/26/2010 Shellfish Containing Products Anaphylaxis,Hives High 01/11/2009 Tapentadol Hives,Rash Medium 12/08/2014 Medications * This document contains information received from the source organization and may not represent a complete record from that organization. cholecalciferol (VITAMIN D3) 2,000 unit tablet Take 2,000 Units by mouth once daily Active folic acid (FOLVITE) 400 MCG tablet Take 400 mcg by mouth once daily 03/12/20 17 Active ondansetron (ZOFRAN-ODT) 4 MG disintegrating tablet ondansetron 4 mg disintegrating tablet 04/06/20 18 Active pyridoxine, vitamin B6, (VITAMIN B-6) 100 MG tablet 100 mg nightly Activ e albuterol (PROVENTIL HFA) 90 mcg/actuation inhaler Inhale 2 inhalations into the lungs every 6 (six) hours as needed for Wheezing Active atorvastatin (LIPITOR) 40 MG tablet Take 40 mg by mouth once daily 03/10/20 24 Active rimegepant (NURTEC ODT) 75 mg disintegrating tablet Take by mouth Active cyclobenzaprine (FLEXERIL) 5 MG tablet Take 5 mg by mouth 3 (three) times daily as needed for Muscle spasms Active fremanezumab-vfrm (AJOVY SYRINGE) 225 mg/1.5 mL Syrg Inject subcutaneously monthly Active acetaminophen (TYLENOL) 500 MG tablet Take by mouth every 6 (six) hours as needed for Pain Active dapagliflozin propanediol (FARXIGA) 10 mg tabletIndications :Type 2 diabetes mellitus without complication, with long-term current use of insulin ([facility]) Take 1 tablet (10 mg total) by mouth once daily 90 tablet 3 05/06/20 24 Active blood glucose diagnostic test strip Use to check 3 times a day for blood glucose. 100 each 3 05/06/20 24 Active lancets Use 3 times a day for glucose mornitoring. 100 each 3 05/06/20 24 Active pen needle, diabetic 32 gauge x 5/16 needle Use as directed 100 each 12 05/06/20 24 Active FLUoxetine (PROZAC) 20 MG capsule Take 20 mg by mouth once daily Active tirzepatide (MOUNJARO) 7.5 mg/0.5 mL pen injectorIndicatio ns:Type 2 diabetes mellitus without complication, without long-term current use of insulin ([facility]) Inject 0.5 mLs (7.5 mg total) subcutaneously every 7 (seven) days 2 mL 3 04/26/20 25 Active blood-glucose sensor (FREESTYLE HIMA 3 PLUS SENSOR) DeviIndications:T ype 2 diabetes mellitus with hyperglycemia, with long-term current use of insulin ([facility]) Use 1 each every 15 (fifteen) days 6 each 3 05/12/20 24 025 Active Problems Problem Noted Date Diagnosed Date Type 2 diabetes mellitus wit hout complication, without long-term current use of insulin ([facility]) 12/06/2024 Obesity, Class III, BMI 40-49.9 (morbid obesity) 12/06/2024 Hypercholesterolemia 12/06/2024 Seizures ([facility]) 06/29/2019 Resolved Problems Problem Noted Date Diagnosed Date Resolved Date Spell of abnormal behavior 02/22/2020 0 02/24/2020 Encounters Date Type Department Care Team Description 04/26/2025 11:00 AM EDT Telemedicine [facility] [address] [place] [address] [place] [address] Christophe Crowley, JUAN Type 2 diabetes mellitus without complication, without long-term current use of insulin ([facility]) (Primary Dx); Obesity, Class III, BMI 40-49.9 (morbid obesity) ([facility]); Hypercholesterolemia from Last 3 Months Family History Medical History Relation Comments Developmental delay Brother Migraines Daughter 1 Migraines Daughter 2 Migraines Daughter 3 Migraines Maternal Aunt High blood pressure (Hypertension) Maternal Gran dfather Hyperlipidemia (Elevated cholesterol) Maternal G randfather Deep vein thrombosis (DVT or abnormal blood clot formation) Maternal Grandmother High blood pressure (Hypertension) Maternal Gran dmother Hyperlipidemia (Elevated cholesterol) Maternal G randmother Shelly Coronary Artery Disease (Blo cked arteries around heart) Maternal Uncle 1 High blood pressure (Hypertension) Maternal Uncl e 1 Hyperlipidemia (Elevated cholesterol) Maternal U ncle 1 Coronary Artery Disease (Blo cked arteries around heart) Maternal Uncle 2 My mother's twin Hyperlipidemia (Elevated cholesterol) Maternal U ncle 2 Coronary Artery Disease (Blo cked arteries around heart) Maternal Uncle 3 Hyperlipidemia (Elevated cholesterol) Mother Developmental delay Son Migraines Son Relation Status Comments Brother Alive Daughter 1 Alive Daughter 2 Alive Daughter 3 Alive Maternal Aunt Alive Maternal Grandfather Alive Maternal Grandmother Alive Maternal Uncle 1 Alive Maternal Uncle 2 Alive Maternal Uncle 3 Alive Mother Alive Son Alive Social History Tobacco Use Types Packs/Day Years Used Date Smoking Tobacco: Never Smokeless Tobacco: Never Tobacco Cessation:Counseling Given: Not Answered Alcohol Use Standard Drinks/Week Comments Not Currently 0 (1 standard drink = 0.6 oz pur e alcohol) [facility] Utilities Answer Date Recorded In the past 12 months has th e electric, gas, oil, or water company threatened to shut off services in your home? Yes 05/31/2024 Overall Financial Resource Strain (CARDIA) Answe r Date Recorded How hard is it for you to pa y for the very basics like food, housing, medical care, and heating? Somewhat hard 05/31/2024 PHQ-2 Answer Date Recorded Patient Health Questionnaire-2 Score 6 05/31/2024 [facility] - Occupational Stress [...] any time in the past 12 m [facility], were you homeless or living in a care home (including now)? No 05/31/2024 Interpersonal Safety Answer [...] Orientation Bisexual 07/03/2019 11 :59 AM EST Last Filed Vital Signs Vital Sign Reading Time Taken Comments Blood Pressure 121/88 12/06/2024 1:10 PM EDT Pulse 73 12/06/2024 1:10 PM EDT Temperature 36.7 C (98 F) 08/13/2021 7:12 PM EST Respiratory Rate 14 12/06/2024 1:10 PM EDT Oxygen Saturation 99% 12/06/2024 1:10 PM EDT Inhaled Oxygen Concentration - - Weight 111.1 kg (245 lb) 04/26/2025 10:49 AM EDT Height 162.6 cm (5' 4 ) 04/26/2025 10:49 AM EDT Body Mass Index 42.05 04/26/2025 10:49 AM EDT Plan of Treatment Upcoming Encounters Date Type Department Care Team (Late st Contact Info) Description 10/25/2025 11:00 AM EDT Telemedicine [facility] [address] [place] [address] Christophe Crowley NP [address] [place] [address] Follow-up disposition: Return in about 6 months (around 10/25/2025) for Christophe, carissa visit, Tuesdays. Health Maintenance Due Date Last Done Comments CT Colonography 1976 Diabetes Education 1976 Fecal Occult Blood Testing 1976 HIV Screen 1976 Hepatitis C Screen 1976 Lipid Panel 1976 Sigmoidoscopy 1976 Cologuard 1976 Colonoscopy 1976 Colorectal Cancer Screening 1976 Mammogram 1976 Pap Smear 1976 Annual Physical/Well Child Check 03/18/1979 Annual Urine Albumin Creatinine Ratio 1986 Diabetes Eye Assessment Exam 1986 Monofilament Foot Exam 1986 Varicella Vaccines (1 of 2 - 13+ 2-dose series) 1989 Adult Tetanus (Td And Tdap) 1994 Pneumococcal Vaccine (1 of 2 - PCV) 1995 COVID-19 Vaccine (2024-2 6 season) 2025 Influenza Vaccine (#1) 2025 04/26/2019 Depression Screening 05/31/2025 05/31/2024, 05/31/2024 Hemoglobin A1C 06/07/2025 12/06/2024, 09/01/2024 HPV Vaccines Aged Out No longer eligi ble based on patient's age to complete this topic Hepatitis A Vaccines Aged Out No long er eligible based on patient's age to complete this topic Hib Vaccines Aged Out No longer eligi ble based on patient's age to complete this topic Meningococcal ACWY Vaccine Aged Out N o longer eligible based on patient's age to complete this topic Meningococcal B Vaccine Aged Out No l onger eligible based on patient's age to complete this topic Procedures Procedure Name Priority Date/Time Associated Diagnosis Comments POC HBA1C (GLYCOHEMOGLOBIN) ([facility] AND ONLY) Routine 12/06/2024 1:17 PM EDT from Last 3 Months or Most Recently Relevant to Health Maintenance Results * POC HBA1C (Glycohemoglobin) ([facility] and only) (12/06/2024 1:17 PM EDT) POC Hemoglobin A1C (Glycated) 5.5 4.3 - 6.0 % ED RALS WEB3 12/06/2024 1:24 PM EDT [facility] POINT OF CARE TESTING PROGRAM Average Blood Glucose 108 mg/dL ED RALS WEB3 12/06/2024 1:24 PM EDT [facility] POINT OF CARE TESTING PROGRAM Comment: Interpretive Data AVERAGE BLOOD GLUCOSE ASSOCIATED WITH THIS PERCENT GLYCATED HEMOGLOBIN (BASED ON DCCT) Blood 12/06/2024 1:17 PM EDT 12/06/2024 1:24 PM EDT Narrative [facility] POINT OF CARE TESTING PROGRAM - 12/06/2024 1:24 PM EDT Interpretive Data THE ADA HAS MADE THE FOLLOWING RECOMMENDATIONS HBA1C results in the range of 5.7-6.4% are suggestive of prediabetes. HBA1C results in the range of > or = 6.5% are diagnostic for diabetes. POC TEST(S) ABOVE PERFORMED AT THE PATIENT CARE LOCATION AND OVERSEEN BY THE [facility] POCT PROGRAM. Christophe Crowley NP POINT OF CARE TEST ORDERABLES Fi nal Result [facility] POINT OF CARE TESTING PROGRAM [id number], [place] [address] from Last 3 Months or Most Recently Relevant to Health Maintenance Advance Directives For more information, please contact: [phone] * Full Code (Latest Code Status on File) Date Activated Date Inactivated Comments 02/22/2020 5:03 PM 02/24/2020 4:53 PM Care Teams Database Analyst Relationship Specialty Start Date End Date Aislinn Merlos PA [address] [place] [address] PCP - General 08/13/21
--- OUTSIDE RECORDS SUMMARY | 2025-06-06 22:28 | XMS_ITS | Patient Health Record ---
Author Organization [facility] are Address [address] [place] [address] Care Team Providers Care Enginehouse Brakeman Name Role Phone MRS. Sunni Ramon Primary Care Provider [phone] Benedicto Talley MD Unavailable Unavailable DR. Benedicto Talley Unavailable [phone] Migration, Provider Unavailable Unavailable All Meade Unavailable [phone] Results Component Value Reference Range Notes IADNA SARSCOV2 & INF A&B & R SV MULT AMP PROBE TQ ([id number]) Reviewed date:09/06/2024 12:00:00 AM Interpretation: Performing Lab: Notes/Report: IADNA SARSCOV2 & INF A&B & RSV MULT AMP PROBE not dete cted NR BLOOD GLUCOSE-HOME MONITOR ( [id number]) Reviewed date:10/05/2024 12:00:00 AM Interpretation: Performing Lab: [...] 1.001-1.035 UA - URINE SEDIMENT x NR CALCIFEDIOL ([id number]) Reviewed date:10/13/2024 12:00:00 AM Interpretation: Performing Lab: Notes/Report: Vitamin D, 25-Hydroxy 42.7 ng/mL 30.0-100.0 Cardiovascular Report Reviewed date:10/13/2024 12:00:00 AM Interpretation: Performing Lab: Notes/Report: Interpretation Note NR PDF . NR CBC, PLATELETS & AUT DIFF ([id number]) Reviewed date:10/13/2024 12:00:00 AM Interpretation: Performing Lab: Notes/Report: Baso (Absolute) 0.1 x10E3/uL 0.0-0.2 Basos 1 % Not Estab. Eos 1 % Not Estab. Eos (Absolute) 0.1 x10E3/uL 0.0-0.4 Hematocrit 45.4 % 34.0-46.6 Hemoglobin 14.9 g/dL 11.1-15.9 Immature Grans (Abs) 0.0 x10E3/uL 0.0-0.1 Immature Granulocytes 0 % Not Estab. Lymphs 19 % Not Estab. Lymphs (Absolute) 1.7 x10E3/uL 0.7-3.1 MCH 27.3 pg 26.6-33.0 MCHC 32.8 g/dL 31.5-35.7 MCV 83 fL 79-97 Monocytes 7 % Not Estab. Monocytes(Absolute) 0.6 x10E3/uL 0.1-0.9 Neutrophils 72 % Not Estab. Neutrophils (Absolute) 6.2 x10E3/uL 1.4-7.0 Platelets 329 x10E3/uL 150-450 RBC 5.45 x10E6/uL 3.77-5.28 RDW 13.5 % 11.7-15.4 WBC 8.6 x10E3/uL 3.4-10.8 LIPID PANEL ([id number]) Reviewed date:10/13/2024 12:00:00 AM Interpretation: Performing Lab: Notes/Report: Cholesterol, Total 200 mg/dL 100-199 HDL Cholesterol 39 mg/dL >39 LDL Chol Calc ([facility]) 141 mg/dL 0-99 Triglycerides 112 mg/dL 0-149 VLDL Cholesterol Ollie 20 mg/dL 5-40 METABOLIC PANEL, COMPREHENSI VE ([id number]) Reviewed date:10/13/2024 12:00:00 AM Interpretation: Performing Lab: Notes/Report: Albumin 4.6 g/dL 3.9-4.9 Alkaline Phosphatase 97 IU/L 44-121 ALT (SGPT) 14 IU/L 0-32 AST (SGOT) 17 IU/L 0-40 Bilirubin, Total 0.6 mg/dL 0.0-1.2 BUN 13 mg/dL 6-24 BUN/Creatinine Ratio 18 9-23 Calcium 9.5 mg/dL 8.7-10.2 Carbon Dioxide, Total 19 mmol/L 20-29 Chloride 103 mmol/L 96-106 Creatinine 0.72 mg/dL 0.57-1.00 eGFR 103 mL/min/1.73 >59 Globulin, Total 2.7 g/dL 1.5-4.5 Glucose 72 mg/dL 70-99 Potassium 4.1 mmol/L 3.5-5.2 Protein, Total 7.3 g/dL 6.0-8.5 Sodium 141 mmol/L 134-144 Microalb/Creat Ratio, Sheng Giraldo ([id number]) Reviewed date:10/13/2024 12:00:00 AM Interpretation: Performing Lab: Notes/Report: Alb/Creat Ratio 6 mg/g creat 0-29 Albumin, Urine 13.1 ug/mL Not Estab. Creatinine, Urine 224.4 mg/dL Not Estab. Reason For Referral No Information Medications Medication SIG (Take, Route, Frequency, Duration) Notes Start Date End Date Status Ondansetron 4 MG Tablet Disintegrating ondansetron 4mg, 1 (one) Tablet as needed for nausea # 30, 02/25/2024, No Refill. Active Oral as needed for nausea; Duration: 30 02/25/2024 Active cyclobenzaprine 5mg cyclobenzaprine 5mg, 1 tablet Tablet at bedtime as needed for neck tension # 90, 11/04/2024, Ref. x1. Active oral at bedtime as needed for neck tension; Duration: 90 *Reorder from [facility] for eRx and Interaction Alerts* 11/04/2024 Active Ferrous Sulfate 325 (65 Fe)MG Ferrous Sulfate 325 (65 Fe)MG, 1 tablet Tablet daily or every other day # 30, 11/09/2019, Ref. x2. Active Oral daily or every other day; Duration: 30 *Pick strength-form from [facility] for eRX* 11/09/2019 Active cholecalciferol (vitamin D3) 50 mcg(2,000 uni cholecalciferol (vitamin D3) 50 mcg(2,000 uni, 1 (one) Tablet daily # 30, 11/20/2022, No Refill. Active oral daily; Duration: 30 *[facility] from [facility] for eRx and Interaction Alerts* 11/20/2022 Active Vitamin B-12 1000 MCG Tablet Vitamin B-12 1000MCG, 1 (one) Tablet daily # 30, 04/27/2021, No Refill. Active Oral daily; Duration: 30 04/27/2021 Active Ozempic 2 mg/dose(8 mg/3 mL Ozempic( 2 mg/dose(8 mg/3 mL subcutaneous 2 mg one weekly ) Active -Hx Entry subcutaneous one weekly; Duration: 0 *Reorder from [facility] for eRx and Interaction Alerts* 11/04/2024 Active PROzac 20mg PROzac 20mg, 1 Capsule daily # 90, 12/04/2024, No Refill. Active oral daily; Duration: 90 *Reorder from [facility] for eRx and Interaction Alerts* 12/04/2024 Active Nurtec ODT 75mg Nurtec ODT 75mg, 1 (one) Tablet daily at onset of migraine headache # 8, 01/09/2024, Ref. x2. Active oral daily at onset of migraine headache; Duration: 30 *Reorder from [facility] for eRx and Interaction Alerts* 01/09/2024 Active BreatheRite Valved MDI Chamber - Device BreatheRite Valved MDI Chamber , 1 (one) device use with albuterol inhaler as needed # 1, 05/14/2024, No Refill. Active miscellaneous use with albuterol inhaler as needed; Duration: 0 05/14/2024 Active Vitamin B-6 25 MG Tablet Vitamin B-6 25MG, 1 (one) Tablet daily # 30, 04/27/2021, No Refill. Active Oral daily; Duration: 30 04/27/2021 Active Farxiga 10 MG Tablet Farxiga 10mg, 1 Tablet every morning # 90, 05/07/2024, No Refill. Active Oral every morning; Duration: 90 05/07/2024 Active Folic Acid Xtra Folic Acid Xtra( Ora l 1 (one) daily ) Active -Hx Entry Oral daily; Duration: 30 *Reorder from [facility] for eRx and Interaction Alerts* 04/27/2021 Active ALPRAZolam 0.5 MG Tablet ALPRAZolam 0.5mg, 1 (one) tablet two times daily, as needed FOR PANIC ATTACHS # 20, 10/12/2024, No Refill. Active Oral two times daily, as needed FOR PANIC ATTACHS; Duration: 10 DX: PANIC ATTACkS [place] Controlled Substance Reporting Database reviewed and patient found to be in compliance with prescription. 10/12/2024 Active atorvastatin 40mg atorvastatin 40mg, 1 (one) Tablet at bedtime for high cholesterol # 90, 09/13/2024, Ref. x1. Active oral at bedtime for high cholesterol; Duration: 90 *Reorder from [facility] for eRx and Interaction Alerts* 09/13/2024 Active Ajovy Autoinjector 225mg/1.5 mL Ajovy Autoinjector( 225mg/1.5 mL subcutaneous 1 every 12 weeks ) Active -Hx Entry subcutaneous every 12 weeks; Duration: 0 *Reorder from [facility] for eRx and Interaction Alerts* 11/04/2024 Active PROzac 20 MG Capsule PROzac 20mg, 1 Capsule daily # 90, 12/04/2024, No Refill. Active Oral daily; Duration: 90 12/04/2024 Active Albuterol Sulfate 90mcg/actuat albuterol sulfate 90mcg/actuat, 2 Puff q 4 hours prn wheezing # 1, 01/22/2024, Ref. x2. Active inhalation q 4 hours prn wheezing; Duration: 30 *Pick strength-form from [facility] for eRX* 01/22/2024 Active FreeStyle Philip 3 Sensor - Miscellaneous FreeStyle Philip 3 Sensor( miscellaneous every 14 days ) Active -Hx Entry miscellaneous every 14 days; Duration: 0 11/04/2024 Active Immunizations Vaccine [place] [id number] TDAP IM Intramuscular 10/05/2024 Pending ,Immuniz ationName, ' : Tdap (7 years and up) (01175) ,Status,' : Ordered Influenza, unspecified formulation IM Intramuscular 03/10/2024 Administered ,ImmunizationNa me, ' : Influenza, inj, MDCK, preservative free, q.valent (37437) ,Status,' : Complete 79704 Flu Shot IM Intramuscular 03/10/2024 Administered ,I mmunizationName, ' : Influenza, inj, MDCK, preservative free, q.valent (44217) ,Status,' : Complete Social History Social History Additional Details Category Social Info Options Details Migrated Social History Migrated Social History Problem Title : No alcohol use, Problem Status : Active,, Problem Title : No drug use, Problem Status : Active,, Problem Title : Tobacco use, Problem Status : Active, Attribute Title : Never smoker Problems Problem Type SNOMED Code ICD Code Onset Dates Problem Status W/U Status Risk Notes Problem Viral infection of the digestive tract (964148033) Viral intestinal infection, unspecified (A08.4) Active confirmed This appears viral. Discussed OTC medications for symptomatic relief. Educated patient on viral vs bacterial infections and use of antibiotics. Provided return precautions. Reminded patient of the importance of hygiene to prevent transmission. Please re-check if no improvement in 1 week OSIW. Problem Iron deficiency anemia (09035853) Iron deficiency anemia, unspecified (D50.9) Active confirmed Continue OTC Ferrous Sulfate 325 mg daily. Will check CBC w/ diff and iron studies. Problem Vitamin B>12< deficiency anaemia (71493844) Vitamin B12 deficiency anemia, unspecified (D51.9) Active confirmed Problem Type II diabetes mellitus without complication (807468941) Type 2 diabetes mellitus without complications (E11.9) Active confirmed Managed by endocrinology. A1c controlled at this time. Problem Vitamin A deficiency (08743070) Vitamin A deficiency, unspecified (E50.9) Active confirmed Patient states she has recently been diagnosed with Vitamin A deficiency by her scrap kettle tender and started on OTC supplements about 6 weeks ago. Will check Vitamin A levels. Discussed dangers associated with fat-soluble vitamins and not going over recommended daily amount. Problem Vitamin B deficiency (08330092) Deficiency of other specified B group vitamins (E53.8) Active confirmed Rechecking labs today Problem Vitamin D deficiency (54829539) Vitamin D deficiency, unspecified (E55.9) Active confirmed Labs pending. Will call patient with results and treat as indicated. Continue vitamin Vitamin D3, 2000 units a day. Problem Morbid obesity (disorder) (281702522) Morbid (severe) obesity due to excess calories (E66.01) Active confirmed Encouraged heart healthy diet modifications and increased exercise of moderate intensity 3-4 times per week as tolerated. Reviewed the numerous benefits of reducing weight. Problem Hyperlipidemia (00866147) Hyperlipidemia, unspecified (E78.5) Active confirmed Rechecking lipid panel. Continue atorvastatin 40 mg daily. Encouraged lifestyle modification in diet and exercise regimen to reduce cholesterol. - Continue lowering intake of high-saturated fat in diet. - Goal lipid levels: Total cholesterol: < 170 Triglycerides: < 150 HDL: > 40 LDL: < 70 Problem Bipolar disorder (37574297) Bipolar disorder, unspecified (F31.9) Active confirmed Follow up with her psychiatrist and her therapist. Problem Anxiety disorder (151395762) Anxiety disorder, unspecified (F41.9) Active confirmed Continue Prozac. Patient also has Xanax available as needed. Will have our office reach out to [facility] psychiatry to inquire about follow-up. Will refer elsewhere if needed for psychiatry services. Problem Post-traumatic stress disorder (97089611) Post-traumatic stress disorder, unspecified (F43.10) Active confirmed Patient started on Zoloft 50 mg daily. Psychiatrist commented he may consider adding Minipress in case there is no improvement in nightmares. Continue to monitor. Problem Epilepsy (09686901) Epilepsy, unspecified, not intractable, without status epilepticus (G40.909) Active confirmed Agreed to refill one more time in light of the COVID-19 pandemic, however patient needs to get all future refills of her Ativan from her Neurologist who initially prescribed the medication. Clear per [employer] database. Problem Migraine without aura, not refractory (disorder) (057083032) Migraine, unspecified, not intractable, without status migrainosus (G43.909) Active confirmed Patient given sample of Nurtec and medication refilled in office today. Current migraine episode seems to be exacerbated by recent stress and also dehydration. Recent elevated blood pressure could also be contributing to headache. Advised patient to take Nurtec as prescribed no more than 1 tablet per 24 hours and stay well-hydrated and rest. Patient given strict return precautions. Problem Insomnia (777693445) Insomnia, unspecified (G47.00) Active confirmed Problem Obstructive sleep apnea syndrome (disorder) (79115945) Obstructive sleep apnea (adult) (pediatric) (G47.33) Active confirmed Patient has still not heard from [facility] Pulmonology to schedule sleep study. Will refer to [place] upon patient request. Problem Carpal tunnel syndrome (99868473) Carpal tunnel syndrome, right upper limb (G56.01) Active confirmed Tendonitis vs CTS. Advised patient she will need to stop crocheting at least for now and will place her in a CTS splint with a thumb stabilizer to help with trigger thumb. Re-check in 2 weeks if no improvement. . Problem Polyneuropathy (92509522) Polyneuropathy, unspecified (G62.9) Active confirmed Problem Benign intracranial hypertension (77709312) Benign intracranial hypertension (G93.2) Active confirmed follow-up with neurology. Problem Compression of brain (05972445) Compression of brain (G93.5) Active confirmed Diagnosed in 2007. Followed by [facility] neurology. Problem Visual disturbance (34390682) Unspecified visual disturbance (H53.9) Active confirmed Called [facility] for suggestion on patients complaint of worsening subjective double vision, as she already has appt shceudled with her office for same complaint made at visit last week. Her current appointment scheduled for 12/05 was moved to 11/28 per [facility] and recommended Ms. Kahn contact their office if worsening eye related symptoms occur for advice/recommen dation. Patient made aware. Problem Otitis media (42350969) Otitis media, unspecified, left ear (H66.92) Active confirmed Starting Cefedinir x 5 days. Recommend OTC Tylenol +/- Motrin for pain and fever control. Return in 2-3 days if no improvement or worsening of pain occurs. Problem Otalgia of right ear (finding) (8819767001) Otalgia, right ear (H92.01) Active confirmed Physical exam unremarkable with no signs of infection. Problem Bilateral otalgia (102455637) Otalgia, bilateral (H92.03) Active confirmed Problem Pain of ear (finding) (675515910) Otalgia, unspecified ear (H92.09) Active confirmed Physical exam unremarkable, with no sign of otitis media or externa. Likely due to seasonal allergies/conge stion causing fluid to build behind TM. Recommended OTC antihistamine. Return as needed for increased pain, fever, or onset of ear drainage. Problem Essential hypertension (74352150) Essential (primary) hypertension (I10) Active confirmed Controlled off of antihypertensiv e at this time. Problem Diastolic heart failure (120728268) Unspecified diastolic (congestive) heart failure (I50.30) Active confirmed Patient reports normal echo by cardiology. No follow up scheduled. Problem Heart failure (20414789) Heart failure, unspecified (I50.9) Active confirmed Stable. Continue current treatment. Follow up with cardiology. Problem Heart disease (70235897) Heart disease, unspecified (I51.9) Active confirmed Echo 12/24/16: quality of study fair, EF 55-60%, nor LV size & fxn, no RWMA. Impaired LV relaxation / grade 1 diastolic dysfxn, trace TR On Lasix. Referring to cardiology. Problem Orthostatic hypotension (32110912) Orthostatic hypotension (I95.1) Active confirmed Orthostatic vitals performed: Laying - Blood pressure 124/74, HR 102 Standing - Blood pressure 118/60, HR 112 After standing for 2 minutes - patient became dizzy and had to sit down. BP 124/70. Findings consistent with orthostatic hypotension. Encouraged patient to drink plenty of fluids, and to avoid standing up too quickly. Problem Acute sinusitis (90682652) Acute sinusitis, unspecified (J01.90) Active confirmed Doxycycline 100 mg 1 p.o. b.i.d. x10 days. Recheck if not better in 3 to 4 days or sooner if worsening. Problem Acute pharyngitis (541010190) Acute pharyngitis, unspecified (J02.9) Active confirmed Rapid strep negative. Problem Acute upper respiratory infection (76190599) Acute upper respiratory infection, unspecified (J06.9) Active confirmed Start daily oral antihistamine and Flonase intranasal therapy for nasal congestion. Also recommend NetiPot sinus rinses, Mucinex for congestion. Recommend throat coat tea, lozenges, Chloraseptic spray for sore throat. If worsening throat pain, swelling in throat, muffling of voice please return to clinic. Problem Acute bronchitis (04211780) Acute bronchitis, unspecified (J20.9) Active confirmed Recheck if not better in 3 to 4 days or sooner if worsening. Problem Chronic sinusitis (25023972) Chronic sinusitis, unspecified (J32.9) Active confirmed Likely viral. Encouraged patient to stay well hydrated and rest as needed. May take benzonatate for cough. Problem Exacerbation of asthma (451574818) Unspecified asthma with (acute) exacerbation (J45.901) Active confirmed Refilling albuterol MDI and starting prednisone. Call 911 for difficulty breathing Problem Uncomplicated asthma (disorder) (231712200) Unspecified asthma, uncomplicated (J45.903) Active confirmed Continue Trelegy daily and albuterol as needed. Sending prescription for spacer chamber. Patient encouraged to increase albuterol inhaler use to every 4-6 hours for the next 2 days and then resume as needed. Problem Gastro-esophageal reflux disease without esophagitis (843084046) Gastro-esophage al reflux disease without esophagitis (K21.9) Active confirmed Avoid NSAIDs. Continue Omeprazole once daily. Patient has known history of reucrrent gastric ulcers secondary to chronic NSAID use. Problem Gastric ulcer (975827544) Gastric ulcer, unspecified as acute or chronic, without hemorrhage or perforation (K25.9) Active confirmed Continue to avoid use of NSAIDs. Repeat EGD in 2020, per GI recommendations . Problem Non-infective enteritis and colitis (254694544) Noninfective gastroenteritis and colitis, unspecified (K52.9) Active confirmed Symptoms likely due to gastroenteritis . VSS, no signs of volume depletion. No fevers, severe pain, bloody/mucoid stools, tolerating fluid PO intake today, and estimated BMs/day < 6. Discussed conservative treatment with symptomatic management, rehydration and bland diet advance as tolerated. Discussed proper hygiene and provided return/ED precautions to patient. Problem Fatty liver (665309208) Fatty (change of) liver, not elsewhere classified (K76.0) Active confirmed Confirmed on RUQ ULS, performed earlier today as part of elevated LFT evaluation. Patient has multiple risk factors including obesity, sedentary lifestyle, hyperlipidemia, diabetes. - Given history of diabetes, will not initiate Vitamin E supplementation . - Recommended risk factor reduction as management of fatty liver disease to avoid development of complications associated with NAFLD/WEAVER such as cirrhosis. - Limit OTC Tylenol if possible. Avoid excessive or daily EtOH consumption. - Continue to monitor LFTs every 6-12 months. - Highly recommended increase exercise regimen, weight loss, avoid alcohol, low saturated fat diet. Problem Urticaria (52250513) Urticaria, unspecified (L50.9) Active confirmed Improving w/ Lyndsey once daily. Problem Osteoarthritis (831243189) Unspecified osteoarthritis, unspecified site (M19.90) Active confirmed Desires to continue use of PRN Naproxen. Will Rx Vimovo for the patient to provide GI protection, however cautioned the patient about regular use of this medication given her hx of gastritis in the past secondary to NSAIDs. Patient agrees with plan. Problem Pain in wrist (42455595) Pain in right wrist (M25.531) Active confirmed Possibly secondary to carpal tunnel syndrome. Recommended patient to wear wrist splint for the next 2 weeks. Try conservative treatment at home including ice/heat, Tylenol as needed for pain. Patient given a written prescription for right wrist splint to flower picker at pharmacy. Problem Pain in wrist (33946445) Pain in left wrist (M25.532) Active confirmed XR L. Wrist: No acute fractures. Soft tissue swelling noted around the ulnar styloid process. Ulnar styloid >6 mm in length. 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 I explained to patient this is usually due to excessive weight bearing and/or reptitive flexion of the wrist at PT, which she has been attending 3x/week for the past 3-4 weeks likely causing the gradual increase in inflammation around the ulnar styloid during that time. - Rx L. Wrist brace - Advised patient to wear for 2-3 weeks to limit ROM during the day. - Rx Voltaren 1% gel twice daily to affected area PRN. - Advised patient to communicate with PT and switch focus from her left shoulder rehab to her lumbago and radicular complaints in her lower body for next 2-3 weeks to allow left wrist to rest while healing. - Return in 2-3 weeks for recheck if pain persist. Problem Disorder of wrist joint (539512150) Other specified joint disorders, unspecified wrist (M25.839) Active confirmed See above fo r details. Problem Lumbar radiculopathy (693023254) Radiculopathy, lumbar region (M54.16) Active confirmed MRI L-Spine w/o contrast ordered at last visit, awaiting medicaid approval at this time. Continue PT sessions 2-3x/week with [facility]. Has few weeks left remaining. Problem Spasm (69887416) Other muscle spasm (M62.838) Active confirmed Refilling Flexeril. Back pain appears chronic in nature. Recommend heat and ice massage with gentle stretching for back pain. Problem Acquired trigger finger (7943211) Trigger thumb, right thumb (M65.311) Active confirmed Discussed pain control options OTC such as topical Diclofenac gel, Tylenol, and encouraged patient to continue with rest & thumb spica for the next 7-14 days. However, patient states unable to tolerate pain for this duration and request Narcotic medication for pain control. I declined this and explained her current complaint is not an appropriate indication for use of narcotics. - Patient stated she is unable to be seen at Orthopedics due to balance owed. Therefore unable to follow up until its paid which may take her 1-2 months. - Advised patient to go to ED for pain control if she feels this is necessary, however do feel conservative treatment +/- trigger point injections with Ortho would likely be sufficient. Problem Achilles bursitis (825752840) Achilles tendinitis, unspecified leg (M76.60) Active confirmed Follow up with [facility]. Problem Calculus of kidney (66871205) Calculus of kidney (N20.0) Active confirmed Recommend following back up with Urology for further evaluation. Problem Urinary tract infectious disease (disorder) (61593951) Urinary tract infection, site not specified (N39.0) Active confirmed Patient denies symptom improvement on Macrobid, switching to Bactrim DS. Urine culture sent. Increase fluid intake and urine output, holding urine no longer than two hours if possible before voiding. Problem Abscess of vulva (29243164) Abscess of vulva (N76.4) Active confirmed Followed by [facility] - Continue Bactrim DS 1 tablet BID as directed. Improved s/p I&D performed at last visit. Keep scheduled f/u appt with [employer]INEER for next week. Problem Excessive and frequent menstruation (993672435) Excessive and frequent menstruation with regular cycle (N92.0) Active confirmed Patient is trying to concieve. Treating for SHIKHA at this time, likely due to menorrhagia. Problem Irregular menstruation (95461624) Irregular menstruation, unspecified (N92.6) Active confirmed HCG negative. Problem Abnormal uterine bleeding (26120463700837) Abnormal uterine and vaginal bleeding, unspecified (N93.9) Active confirmed Refill of Provera 20 mg TID x 7 days for AUB. Follow up appt scheduled with [employer]ER in November 2021. Problem Tachycardia (8310868) Tachycardia, unspecified (R00.0) Active confirmed - Follow up with Cardiology as soon as possible. Problem Elevated blood pressure reading without diagnosis of hypertension (728178960) Elevated blood-pressure reading, without diagnosis of hypertension (R03.0) Active confirmed Blood pressure stable in office today, however would like better blood pressure control of <130/80 in the setting of diabetes. However, patients headaches have not been well controlled which may be contributing to her increased blood pressure readings. Encouraged patient to continue monitoring her blood pressure and bring a log to follow up. Will re-evaluate at follow up in 1 month. Problem Shortness of breath (501967503) Shortness of breath (R06.02) Active confirmed Duoneb given with marginal improvement in symptoms. Sending patient to ED for PE work-up. She declines EMS but states that she will drive directly to ED. Charge nurse called. Vital signs stable at discharge. Problem Chest pain (63550814) Other chest pain (R07.89) Active confirmed Recommended follow up with [facility]. Problem Chest pain (58256058) Chest pain, unspecified (R07.9) Active confirmed Awaiting referral to Cardiology at this time. Problem Epigastric pain (64093340) Epigastric pain (R10.13) Active confirmed New abdominal pain since starting Ozempic. Will check labs today. Will call patient with results and treat as indicated. Problem Lower abdominal pain (42510203) Lower abdominal pain, unspecified (R10.30) Active confirmed Recommended checking additional labs such as CBC, CMP, but patient denied at this time. If symptoms continue, recommended she follow up for labs. Problem Abdominal pain (62596293) Unspecified abdominal pain (R10.9) Active confirmed Updating labs today. Checking also pancreatic enzymes. Problem Nausea (447961619) Nausea (R11.0) Active confirmed Nausea is associated with Ozempic injections. Resending prescription for Zofran to her pharmacy. Patient encouraged to eat smaller and more frequent meals. Problem Vomiting (023941432) Vomiting, unspecified (R11.10) Active confirmed Patient tried Zofran with no relief. Will start Phenergan for nausea/vomiting . The patient is aware of the sedative effects of this medication and will not drive or drink alcohol while taking it. Problem Dysphagia (52968591) Dysphagia, unspecified (R13.10) Active confirmed Follow-up with GI. Problem Diarrhea (63673124) Diarrhea, unspecified (R19.7) Active confirmed Likely due to recent antibiotic use - Will send stool culture + C. diff EUGENIA. Avoid Immodium at this time as bacterial etiology can not be excluded. Increase PO hydration at home. Will Rx Bentyl for abdominal cramping as needed. Problem Paresthesia (finding) (65503056) Paresthesia of skin (R20.2) Active confirmed Followed by Neurology. Continue Gabapentin 300 mg at bedtime. Problem Abnormal gait (54030809) Unsteadiness on feet (R26.81) Active confirmed Referring for PT. Problem Dysuria (93195177) Dysuria (R30.0) Active confirmed Urinalysi s positive for excess glucose, negative for blood leukoesterase or nitrites. Sending urine sample for culture and sensitivity. Will call patient with results and treat as indicated. Problem Unspecified symptoms and signs involving the genitourinary system (R39.9) Active confirmed Problem Dizziness and giddiness (568753755) Dizziness and giddiness (R42) Active confirmed Patient does have nystagmus and ear fullness. Will try her on meclizine for symptoms of vertigo. Also recommend Zyrtec and Flonase however patient reports that she is unable to tolerate Flonase. Follow through with cardiology referral. Problem Fever (343889749) Fever, unspecified (R50.9) Active confirmed May be related to cellulitis on her right breast, which started approx. 1 week ago. Consider right breast mammogram vs. ULS if no improvement in 2-3 days. Follow up recommended. Problem Malaise (770132587) Other malaise (R53.81) Active confirmed Continue to follow up with PT for strengthening exercises. Problem Fatigue (31159889) Other fatigue (R53.83) Active confirmed Multifactorial in nature given her comorbidities and sedentary lifestyle. Chronic fatigue. Problem Syncope and collapse (807760995) Syncope and collapse (R55) Active confirmed Cardiology referral pending per [facility] records. ED precautions reviewed. Patient encouraged to check blood sugar if she feels presyncope symptoms. Problem Localized enlarged lymph nodes (252651424) Localized enlarged lymph nodes (R59.0) Active confirmed Mammogram in Jul 2020 - [facility]. Will perform ULS of the swollen palpable area in the left supraclavicular region for further evaluation. Possibly related to recent COVID-19 vaccine in the L. deltoid from 3 weeks ago. Problem Symptom: generalized (583695185) Other general symptoms and signs (R68.89) Active confirmed RFT Negative. Rapid COVID-19 negative, performed via Quidel Jane-2 SARS JESÚS test. Presentation most consistent with a viral syndrome. Discussed home management of current symptoms with OTC decongestants and/or nasal sprays as needed. Encouraged use of nasal saline rinses and/or humidifier near head of bed at nighttime. Return in 1-2 weeks if symptoms persist or sooner if worsening. Isolation from general public while symptomatic encouraged to reduce viral spread. Problem Blood chemistry abnormal (305979490) Other specified abnormal findings of blood chemistry (R79.89) Active confirmed Redrawing liver panel and hepatitis labs today. Suspect Tylenol caused LFT elevation. Patient to avoid Tylenol and EtOH going forward. Will contact patient with results of lab work. Will consider NAFLD workup if LFTs remain elevated despite discontinuing Tylenol use. Problem Glycosuria (46500097) Glycosuria (R81) Active confirmed UA with ++++ glucose, however FSBS 316 in the office. See diabetes note above. Problem Adult health examination (908733927) Encounter for general adult medical examination without abnormal findings (Z00.00) Active confirmed Discussed appropriate health maintenance and prevention topics with patient. Reviewed vaccinations and screening tests. Discussed healthy lifestyle habits to prevent disease and promote wellbeing. Labs pending, will call patient with results and treat as indicated. Re-check for annual PE in 1 year. Problem History and physical examination, follow-up (682625938) Encounter for follow-up examination after completed treatment for conditions other than malignant neoplasm (Z09) Active confirmed see HPI Problem Screening for malignant neoplasm of cervix (207535326) Encounter for screening for malignant neoplasm of cervix (Z12.4) Active confirmed History of multiple abnormal paps. Refer to [facility] to updating Pap upon patient request. Problem Vaccination given (065231195) Encounter for immunization (Z23) Active confirmed Tdap given by [facility] in Left deltoid Lot:[id number] EXP: 02/23/27 Tdap updated today. Problem test equivocal (629620264) Encounter for test, result unknown (Z32.00) Active confirmed Urine HCG negative. Will perfrom serum qualatative to confirm (patient requested). Avoid restarting Phentermine until lab confirms not . Patient agrees with the plan. Problem test positive (861175570) Encounter for test, result positive (Z32.01) Active confirmed Will perform serum HCG qual/quant performed, since our office is out of urine HCG test at this time. Starting vitamin once daily. Follow up with [facility] if confirmed. Problem care (652877478) Encounter for supervision of normal , unspecified, unspecified trimester (Z34.90) Active confirmed Problem Dietary management surveillance (800354416) Dietary counseling and surveillance (Z71.3) Active confirmed After discussing the medication options for weight loss management the patient and I have decided phentermine is a viable option for them. Patient denies any history of seizures, MAOIs in the last 14 days, no HTN - blood pressure well controlled at this time. No CVD - Recently had negative cardiac stress test and echo performed last month. No renal impairment (Cr: 0.80). Side effects have been discussed with patient including increased heart rate, psychosis, diarrhea, dry mouth, insomnia, dizziness, palpitations, Cardiac ischemia, hypertension, libido changes, or impotence. Patient is aware that contraception must be used if patient has the ability to become because phentermine is a medication that can cause defects. . Problem Counseling requested (020797744) Persons encountering health services in other specified circumstances (Z76.89) Active confirmed Although phentermine may be an okay option for her should she continue to lose weight, in light of recent events, advised that we will hold this prescription for now. Encouraged her to continue weight loss and exercise and after her neurology evaluation consider restarting or discussing an alternative option. Problem Health status (189057204) Other specified health status (Z78.9) Active confirmed Followed by [facility] specialist. Currently on Provera but plans to start Clomid later this year. Problem History of urinary stone (865885441) Personal history of urinary calculi (Z87.442) Active confirmed Appointment scheduled to re-establish care with Urology on 01/14. Continue Flomax once daily. Discussed recent CT scan results which showed multiple nonobstructing, <2mm stones in the kidneys, bilaterally, with no ureteral stones present. No hydronephrosis. Minimal CVA tenderness on exam today. Stable. Afebrile. Continue current plan and follow up with Urology on 01/14. Problem Pure hypercholesterole susie (258027527) Pure hypercholestero lemia, unspecified (E78.00) Active confirmed Check lipid and liver panel. Low-cholesterol diet. Problem Muscle pain (51410719) Myalgia, unspecified site (M79.10) Active confirmed Briefly discussed fibromyalgia with patient. Based on brief interview she does appear to meet criteria but no official diagnosis has been made yet. Would like to further discuss this with patient at future visits to see if we can get her off of Flexeril. Will refill Flexeril today. Problem Inflammatory disorder of breast (261621566) Mastitis without abscess (N61.0) Active confirmed Improving. Will order screening mammogram at this time which patient requested today. No prior screening in the past. Maternal grandmother w/ hx of breast cancer. Problem Lump in upper inner quadrant of left breast (finding) (305303460234989) Unspecified lump in the left breast, upper inner quadrant (N63.22) Active confirmed Mammogram ordered today. Problem Prediabetes (856382980) Prediabetes (R73.03) Active confirmed Problem COVID-19 (931516057) COVID-19 (U07.1) Active confirmed PCR testing today is negative. Problem Esophagitis (disorder) (22147031) Esophagitis, unspecified without bleeding (K20.90) Active confirmed Continue Protonix and Carafate. Problem Headache (00813746) Headache, unspecified (R51.9) Active confirmed Uncontrolled. Patient has not seen [facility] who have recommended neurology consult prior to moving forward with treatment modalities. Resending Flexeril since this has helped somewhat, however I would not recommend this as a senior care solution. Problem Encounter for screening for COVID-19 (Z11.52) Active confirmed Negative rapid COVID-19/RSV/Fl u via PCR today. Results reviewed with patient. Problem Exposure to acute respiratory syndrome coronavirus 2 (422529089) Contact with and (suspected) exposure to COVID-19 (Z20.822) Active confirmed Problem Depression (237558749) Depression, unspecified (F32.A) Active confirmed Followed by Psychiatry. Problem Low back pain (822302012) Low back pain, unspecified (M54.50) Active confirmed Urinalysis negative for blood, low suspicion for migrating kidney stones. Seems musculoskeletal given tenderness on exam and exacerbated pain with certain movements. Recommend continuing Tylenol for pain relief. Also recommend stretching exercises. Problem Acute cough (3770065413606562 04) Acute cough (R05.1) Active confirmed PCR negative for COVID, flu, RSV. Given short duration of symptoms, Patient advised to treat symptomatically and follow-up if no improvement over the course of 7 to 10 days. Problem Cough (finding) (93060518) Cough, unspecified (R05.9) Active confirmed Isolate until PCR results become available. This does appear viral. Discussed OTC medications for symptomatic relief. Educated patient on viral vs bacterial infections and use of antibiotics. Return precautions given. Patient advised to speak with a medical provider about next steps if they do test positive. Problem Post-acute COVID-19 (disorder) (4794241177) Post COVID-19 condition, unspecified (U09.9) Active confirmed Symptoms consistent with long covid. Educated that these symptoms could last for weeks-months due to COVID-19. Continue to stay hydrated and drink plenty of fluids, stay active. Can treat symptomatically if needed. Problem Obese class III (finding) (446489705) Obesity, class 3 (E66.813) Active confirmed Encouraged heart healthy diet modifications and increased exercise of moderate intensity 3-4 times per week as tolerated. Reviewed the numerous benefits of reducing weight. Problem Panic disorder (237859571) Panic disorder [episodic paroxysmal anxiety] without agoraphobia (F41.0) Active confirmed Patient has taken hydroxyzine in the past. Has done well with this. She has some at home. I have advised her to take 25 mg one p.o. b.i.d. on a p.r.n. basis. Warned of the sedative and addictive potential of this medication. She has a counselor and therapist that she is seeing. She has contacted [facility]. I have advised her that she also has an appointment with her PCP on Friday. Problem Body mass index 40+ - severely obese (268942357) Body mass index (BMI) 45.0-49.9, adult (Z68.42) Active confirmed Problem Body mass index 40+ - severely obese (101992574) Body mass index (BMI) 40.0-44.9, adult (Z68.41) Active confirmed Problem Candidiasis (55736783) Candidiasis, unspecified (B37.9) Inactive confirmed Patient contacts office wishing to stop her antibiotics due to multiple side-effects including dizziness, numbness in her hands and a yeast infection. Dizziness is a known side-effect of ciprofloxacin and patient has demonstrated a low threshold of tolerance for medication in the past so we will d/c this medication. Her UA showed 10-25K mixed CFU which is inconsistent with a UTI and she endorses no improvement in flank pain since starting cipro. She also endorses adverse reactions to every other alternative so I advised her we will not be switching her and she is to follow-up with urology for her R flank pain. If worsening symptoms please go to ED. Will provide a prescription for fluconazole. Problem Hypertensive heart failure (87134436) Hypertensive heart disease with heart failure (I11.0) Inactive confirmed Continue current treatment. Clinically doing well. Problem Seizure (39318912) Unspecified convulsions (R56.9) Inactive confirmed See HPI. Keep scheduled follow up appointment with [facility]. Will allow them to further drive management of this. 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 (659032849) [facility] (current) use of insulin (Z79.4) Inactive confirmed Vital Signs Heart Rate 90 /min 11/04/2024 Temperature 98.40 degrees Fahrenheit 11/04/2024 Height-cm 162.56 cm 11/04/2024 Oximetry 97 % 11/04/2024 Blood pressure diastolic 84 mm Hg 11/04/2024 Weight-kg 108.41 kg 11/04/2024 Height 64.00 in 11/04/2024 Blood pressure systolic 122 mm Hg 11/04/2024 Weight 239.0000 lbs 11/04/2024 BMI 41.02 kg/m2 11/04/2024 Encounters Encounter Location Date Provider Diagnosis [facility] [address] [place] [address] 06/07/2024 Sunnicristhian Ramon [facility] [address] [place] [address] 06/16/2024 Sunni Ramon [facility] [address] [place] [address] 08/02/2024 Sunni Ramon [facility] [address] [place] [address] 09/06/[address] [facility] [address] [place] [address] 10/02/2024 Benedicto Talley [facility] [address] [place] [address] 10/05/[address] [facility] [address] [place] [address] 10/14/[address] [facility] [address] [place] [address] [facility] [address] [place] [address] 02/26/2025 Provider Migration [facility] [address] [place] [address] 02/27/2025 Provider Migration [facility] [address] [place] [address] 05/14/2025 Provider Migration [facility] [address] [place] [address] 05/15/2025 Provider Migration Plan Of Treatment No Information Insurance Providers Payer Name Payer Address Payer Phone Subscriber Number Group Number Insured Name Patient Relationship to Insured Coverage Start Date Coverage End Date [employer] [address] [address] [place] [address] [id number] [id number] Cyrus Swansonelle Self - patient is the insured Medicaid [address] [address] [place] [address] [phone] [id number] Lira Self - patient is the insured 1 Medical (General) History Surgical History Surgery Date(Month/Year) Problem Title : Appendectomy , Problem Status : Active, Attribute Title : Inpatient, Problem Title : Del leatha, Problem Status : Active, Attribute Title : Inpatient, Problem Title : Cholecystect anamika, Problem Status : Active, Attribute Title : Inpatient, Problem Title : Dilation and Curettage of Uterus, Problem Status : Active, Attribute Title : Inpatient, Problem Title : Hernia Repai r, Problem Status : Active, Attribute Title : Inpatient, Problem Title : Hysteroscopy , Problem Status : Active, Attribute Title : Outpatient, Problem Title : Kidney Stone Removal, Problem Status : Active, Attribute Title : Outpatient,
--- NOTE | 2025-06-06 22:29 | CTR_ITS ---
PROCEDURE INFORMATION: Exam: CT Head Without Contrast Exam date and time: 06/06/2025 10:43 PM Age: 50 years old Clinical indication: Pain; Headache; Additional info: Head pain TECHNIQUE: Imaging protocol: Computed tomography of the head without contrast. Radiation optimization: All CT scans at this facility use at least one of these dose optimization techniques: automated exposure control; mA and/or kV adjustment per patient size (includes targeted exams where dose is matched to clinical indication); or iterative reconstruction. COMPARISON: No relevant prior studies available. RADIATION DOSE METRICS: Total DLP (mGy-cm): 1132.68 FINDINGS: Brain: Normal. No hemorrhage. Unremarkable white matter. No mass effect. Cerebral ventricles: No ventriculomegaly. Paranasal sinuses: Visualized sinuses are unremarkable. No fluid levels. Mastoid air cells: Visualized mastoid air cells are well aerated. Bones: Unremarkable. No acute fracture. Soft tissues: Unremarkable. CT/CT head wo con* [id number] IMPRESSION: No acute intracranial abnormality.
--- NOTE | 2025-06-06 22:30 | W.ED.HA ---
HPI - Headache General: Chief Complaint: Headache Stated Complaint: BROOKE rt side of head, nausea, dizzy, Time Seen by Provider: 06/06/25 22:27 History of Present Illness: 50-year-old female who presents to the emergency room with headache. She was here earlier in the day. Apparently she is living in her car. However she told me she was here living with family. She is from [place]. Her visit earlier today was for headache and chest pain. She had a chest pain rule out. She said the headache has continued its on the right side and goes down her neck. She has extensive allergies. No altered mental status. No focal motor deficits. No further chest pain Related Data Home Medications ?Medication ?Instructions ?Recorded ?Confirmed fluoxetine 40 mg capsule 40 mg PO DAILY 06/06/25 06/06/25 Allergies Allergy/AdvReac Type Severity Reaction Status Date / Time azithromycin Allergy Unknown Verified 06/06/25 11:20 duloxetine Allergy Unknown Verified 06/06/25 11:20 erythromycin base Allergy Unknown Verified 06/06/25 11:20 Gadolinium-Containing Allergy Unknown Verified 06/06/25 11:20 Contrast Medi influenza A (H1N1) virus Allergy Unknown Verified 06/06/25 11:20 vaccine [id number]-split 2008 (From influenza A (H1N1)) Iodinated Contrast Media Allergy Unknown Verified 06/06/25 11:20 lactase Allergy Unknown Verified 06/06/25 11:20 latex Allergy Unknown Verified 06/06/25 11:20 metoclopramide Allergy Unknown Verified 06/06/25 11:20 montelukast Allergy Unknown Verified 06/06/25 11:20 nitroglycerin Allergy Unknown Verified 06/06/25 11:20 NSAIDS (Non-Steroidal Allergy Unknown Verified 06/06/25 11:20 Anti-Inflamma Penicillins Allergy Unknown Verified 06/06/25 11:20 prochlorperazine Allergy Unknown Verified 06/06/25 11:20 shellfish derived Allergy Unknown Verified 06/06/25 11:20 tapentadol Allergy Unknown Verified 06/06/25 11:20 Review of Systems Narrative: Constitutional symptoms: Negative except as documented in HPI. Skin symptoms: Negative except as documented in HPI. Eye symptoms: Negative except as documented in HPI. ENMT symptoms: Negative except as documented in HPI. Respiratory symptoms: Negative except as documented in HPI. Cardiovascular symptoms: Negative except as documented in HPI. Gastrointestinal symptoms: Negative except as documented in HPI. Genitourinary symptoms: Negative except as documented in HPI. Musculoskeletal symptoms: Negative except as documented in HPI. Neurologic symptoms: Negative except as documented in HPI. Psychiatric symptoms: Negative except as documented in HPI. Endocrine symptoms: Negative except as documented in HPI. [facility] Female Reproductive History: Date of last menstrual period: 06/06/25 Physical Exam Narrative: EXAM NARRATIVE: General: Alert, no acute distress. Skin: warm and dry Head: Normocephalic Neck: Trachea midline Eye: Extraocular movements are intact. Ears, nose, mouth and throat: Oral mucosa moist Respiratory: Respirations are non-labored Musculoskeletal: Normal ROM Gastrointestinal: Abdomen does not appear distended Neurological: Alert and oriented, No focal neurological deficit observed. Psychiatric: Cooperative, appropriate mood & affect. Course Vital Signs: Vital signs: Vital Signs Temperature 97.4 F L 06/06/25 22:16 Pulse Rate 72 06/06/25 22:31 Respiratory Rate 14 06/06/25 22:16 Blood Pressure 141/74 06/06/25 22:31 Pulse Oximetry 99 06/06/25 22:31 Oxygen Delivery Me thod Room Air 06/06/25 22:16 MDM - Headache Medical Decision Making Medical decision making Patient's reason for coming to the emergency room: Headache. Social determinants: Patient may be homeless. Unclear. I reviewed the patient's medical record. Patient had normal workup today with normal lab work. Normal EKGs. I reviewed the patient's current home meds Alternate historians: None Medical decision making: Differential diagnosis for this patient presenting with severe headache including but not limited to and based on the above HPI, review of systems and physical exam: Intracranial hemorrhage, stroke, migraine, cluster headache, infections such as influenza, covid Orders placed to evaluate differential diagnosis based on the above differential, HPI and physical exam Lab Review: Laboratory results were reviewed and interpreted by myself the emergency room physician. Flu COVID and RSV are negative CT head: No acute intracranial process. No intracranial hemorrhage, no evidence of infarct. No evidence of acute fracture. This was reviewed and interpreted by myself the emergency room physician. I also reviewed the radiology report. Assessment of risk: Level of risk: Moderate risk patient. Hospitalization considerations: No indications for hospitalization Reexamination: Patient remained stable. No increased work of breathing. No altered mental status. No focal motor deficits. Assessment and plan: Headache - Discharged home - Discussed plan with patient. Answered any questions. - Evaluation and treatment of this problem were appropriate in the emergency setting. Lab Data Radiology Impressions Head CT 06/06/25 22:29 IMPRESSION: No acute intracranial abnormality. Laboratory Results Influenza A (PCR) Negative (Negative) 06/06/25 22:33 Influenza Type B (PCR) Negative (Negative) 06/06/25 22:33 RSV (PCR) Negative (Negative) 06/06/25 22:33 SARS-CoV-2 (PCR) Negative (Negative) 06/06/25 22:33 All radiology interpretation(s) finalized by discharge Discharge Plan Discharge Patient Disposition: Home Clinical Impression: Headache Condition: Stable Prescriptions: No Action fluoxetine [Prozac] 40 mg Capsule 40 mg PO DAILY Discharge Orders: Discharge ED (Routine); Ordered 06/06/25 Ordered By: Flaquita Hunter Discharge Diet: Usual diet Discharge Activity: Increase activity as tolerated Patient Instructions: General Headache (ED), Opioid Safety, Pain Management, Patient Portal & Vipin Instructions Activity Restrictions/Additional Instructions: Thank you for choosing [facility] for your healthcare needs today. You have been screened and evaluated and felt safe for discharge. Health conditions do change or evolve sometimes and as such it is important that you follow up with your Primary Doctor to be re checked, 3-5 days is a general good time frame for follow up. You are always welcome to return to the ED for re assessment if your symptoms are worsening or you have new concerns Print Language: Haitian Coding Level of Care Code ED Procurement Agent for Jasper Hester
--- OUTSIDE RECORDS SUMMARY | 2025-06-06 22:30 | XMS_ITS | Patient Health Record ---
[facility] Organization [facility] Address [address] [place] [address] Care Team Providers Care Alligator Hunter Name Role Phone Benedicto Talley MD Unavailable Unavailable DR. Benedicto Talley Unavailable [phone] Migration, Provider Unavailable Unavailable Reason For Referral No Information Medications Medication SIG (Take, Route, Frequency, Duration) Notes Start Date End Date Status FreeStyle Philip 3 Sensor - Miscellaneous FreeStyle Philip 3 Sensor( miscellaneous every 14 days ) Active -Hx Entry miscellaneous every 14 days; Duration: 0 11/04/2024 Active ALPRAZolam 0.5 MG Tablet ALPRAZolam 0.5mg, 1 (one) tablet two times daily, as needed FOR PANIC ATTACHS # 20, 10/12/2024, No Refill. Active Oral two times daily, as needed FOR PANIC ATTACHS; Duration: 10 DX: PANIC ATTACkS [place] Controlled Substance Reporting Database reviewed and patient found to be in compliance with prescription. 10/12/2024 Active atorvastatin 40mg atorvastatin 40mg, 1 (one) Tablet at bedtime for high cholesterol # 90, 09/13/2024, Ref. x1. Active oral at bedtime for high cholesterol; Duration: 90 *[facility] Interaction Alert[facility]* 09/13/2024 Active Albuterol Sulfate 90mcg/actuat albuterol sulfate 90mcg/actuat, 2 Puff q 4 hours prn wheezing # 1, 01/22/2024, Ref. x2. Active inhalation q 4 hours prn wheezing; Duration: 30 *Pick strength-form from [facility] for eRX* 01/22/2024 Active Ajovy Autoinjector 225mg/1.5 mL Ajovy Autoinjector( 225mg/1.5 mL subcutaneous 1 every 12 weeks ) Active -Hx Entry subcutaneous every 12 weeks; Duration: 0 *Reorder from [facility] for eRx and Interaction Alerts* 11/04/2024 [...] for neck tension; Duration: 90 *Reorder from [facility] for eRx and Interaction Alerts* 11/04/2024 Active Ferrous Sulfate 325 (65 Fe)MG Ferrous Sulfate 325 (65 Fe)MG, 1 tablet Tablet daily or every other day # 30, 11/09/2019, Ref. x2. Active Oral daily or every other day; Duration: 30 *Pick strength-form from [facility] for eRX* 11/09/2019 Active cholecalciferol (vitamin D3) 50 mcg(2,000 uni cholecalciferol (vitamin D3) 50 mcg(2,000 uni, 1 (one) Tablet daily # 30, 11/20/2022, No Refill. Active oral daily; Duration: 30 *Reorder from [facility] for eRx and Interaction Alerts* 11/20/2022 Active Vitamin B-12 1000 MCG Tablet Vitamin B-12 1000MCG, 1 (one) Tablet daily # 30, 04/27/2021, No Refill. Active Oral daily; Duration: 30 04/27/2021 Active Ozempic 2 mg/dose(8 mg/3 mL Ozempic( 2 mg/dose(8 mg/3 mL subcutaneous 2 mg one weekly ) Active -Hx Entry subcutaneous one weekly; Duration: 0 *Reorder from [facility] for eRx and Interaction Alerts* 11/04/2024 Active PROzac 20 MG Capsule PROzac 20mg, 1 Capsule daily # 90, 12/04/2024, No Refill. Active Oral daily; Duration: 90 12/04/2024 Active Nurtec ODT 75mg Nurtec ODT 75mg, 1 (one) Tablet daily at onset of migraine headache # 8, 01/09/2024, Ref. x2. Active oral daily at onset of migraine headache; Duration: 30 *Reorder from [facility] for eRx and Interaction Alerts* 01/09/2024 [...] Entry Oral daily; Duration: 30 *Reorder from [facility] for eRx and Interaction Alerts* 04/27/2021 Active Immunizations Vaccine [place] [id number] Tdap OTH Other/Miscellaneous 10/05/2024 Pending ,ImmunizationName ,' : Tdap (7 years and up) (51117) ,Status,' : Ordered Source Location: <Undefined> Influenza, unspecified formulation IM Intramuscular 03/10/2024 Administered ,ImmunizationNa me ,' : Influenza, inj, MDCK, preservative free, q.valent (01546) ,Status,' : Complete Social History Social History [...] Problem Viral infection of the digestive tract (023978561) Viral intestinal infection, unspecified (A08.4) Active confirmed This appears viral. Discussed OTC medications for symptomatic relief. Educated patient on viral vs bacterial infections and use of antibiotics. Provided return precautions. Reminded patient of the importance of hygiene to prevent transmission. Please re-check if no improvement in 1 week OSIW. Problem Iron deficiency anemia (03688149) Iron deficiency anemia, unspecified (D50.9) Active confirmed Continue OTC Ferrous Sulfate 325 mg daily. Will check CBC w/ diff and iron studies. Problem Vitamin B>12< deficiency anaemia (81144397) Vitamin B12 deficiency anemia, unspecified (D51.9) Active confirmed Problem Type II diabetes mellitus without complication (450661172) Type 2 diabetes mellitus without complications (E11.9) Active confirmed Managed by endocrinology. A1c controlled at this time. Problem Vitamin A deficiency (82044277) Vitamin A deficiency, unspecified (E50.9) Active confirmed Patient states she has recently been diagnosed with Vitamin A deficiency by her bread stacker and started on OTC supplements about 6 weeks ago. Will check Vitamin A levels. Discussed dangers associated with fat-soluble vitamins and not going over recommended daily amount. Problem Vitamin B deficiency (15762756) Deficiency of other specified B group vitamins (E53.8) Active confirmed Rechecking labs today Problem Vitamin D deficiency (03961771) Vitamin D deficiency, unspecified (E55.9) Active confirmed Labs pending. Will call patient with results and treat as indicated. Continue vitamin Vitamin D3, 2000 units a day. Problem Morbid obesity (disorder) (857574789) Morbid (severe) obesity due to excess calories (E66.01) Active confirmed Encouraged heart healthy diet modifications and increased exercise of moderate intensity 3-4 times per week as tolerated. Reviewed the numerous benefits of reducing weight. Problem Hyperlipidemia (98143811) Hyperlipidemia, unspecified (E78.5) Active confirmed Rechecking lipid panel. Continue atorvastatin 40 mg daily. Encouraged lifestyle modification in diet and exercise regimen to reduce cholesterol. - Continue lowering intake of high-saturated fat in diet. - Goal lipid levels: Total cholesterol: < 170 Triglycerides: < 150 HDL: > 40 LDL: < 70 Problem Bipolar disorder (22298360) Bipolar disorder, unspecified (F31.9) Active confirmed Follow up with her psychiatrist and her therapist. Problem Anxiety disorder (629184950) Anxiety disorder, unspecified (F41.9) Active confirmed Continue Prozac. Patient also has Xanax available as needed. Will have our office reach out to [facility] psychiatry to inquire about follow-up. Will refer elsewhere if needed for psychiatry services. Problem Post-traumatic stress disorder (22058594) Post-traumatic stress disorder, unspecified (F43.10) Active confirmed Patient started on Zoloft 50 mg daily. Psychiatrist commented he may consider adding Minipress in case there is no improvement in nightmares. Continue to monitor. Problem Epilepsy (75453107) Epilepsy, unspecified, not intractable, without status epilepticus (G40.909) Active confirmed Agreed to refill one more time in light of the COVID-19 pandemic, however patient needs to get all future refills of her Ativan from her Neurologist who initially prescribed the medication. Clear per [employer] database. Problem Migraine without aura, not refractory (disorder) (871489147) Migraine, unspecified, not intractable, without status migrainosus [...] Patient given strict return precautions. Problem Insomnia (577049053) Insomnia, unspecified (G47.00) Active confirmed Problem Obstructive sleep apnea syndrome (disorder) (68933173) Obstructive sleep apnea (adult) (pediatric) (G47.33) Active confirmed Patient has still not heard from [facility] Pulmonology to schedule sleep study. Will refer to [facility] upon patient request. Problem Carpal tunnel syndrome (52671408) Carpal tunnel syndrome, right upper limb (G56.01) Active confirmed Tendonitis vs CTS. Advised patient she will need to stop crocheting at least for now and will place her in a CTS splint with a thumb stabilizer to help with trigger thumb. Re-check in 2 weeks if no improvement. . Problem Polyneuropathy (69501902) Polyneuropathy, unspecified (G62.9) Active confirmed Problem Benign intracranial hypertension (41007368) Benign intracranial hypertension (G93.2) Active confirmed follow-up with neurology. Problem Compression of brain (26526432) Compression of brain (G93.5) Active confirmed Diagnosed in 2007. Followed by [facility] neurology. Problem Visual disturbance (70918423) Unspecified visual disturbance (H53.9) Active confirmed Called [facility] for suggestion on patients complaint [...] dation. Patient made aware. Problem Otitis media (57019209) Otitis media, unspecified, left ear (H66.92) Active confirmed Starting Cefedinir x 5 days. Recommend OTC Tylenol +/- Motrin for pain and fever control. Return in 2-3 days if no improvement or worsening of pain occurs. Problem Otalgia of right ear (finding) (4168410608) Otalgia, right ear (H92.01) Active confirmed Physical exam unremarkable with no signs of infection. Problem Bilateral otalgia (272745618) Otalgia, bilateral (H92.03) Active confirmed Problem Pain of ear (finding) (143180272) Otalgia, unspecified ear (H92.09) Active confirmed Physical exam unremarkable, with no sign of otitis media or externa. Likely due to seasonal allergies/conge stion causing fluid to build behind TM. Recommended OTC antihistamine. Return as needed for increased pain, fever, or onset of ear drainage. Problem Essential hypertension (77191471) Essential (primary) hypertension (I10) Active confirmed Controlled off of antihypertensiv e at this time. Problem Diastolic heart failure (771424228) Unspecified diastolic (congestive) heart failure (I50.30) Active confirmed Patient reports normal echo by cardiology. No follow up scheduled. Problem Heart failure (81260175) Heart failure, unspecified (I50.9) Active confirmed Stable. Continue current treatment. Follow up with cardiology. Problem Heart disease (02868065) Heart disease, unspecified (I51.9) Active confirmed Echo 12/24/16: quality of study fair, EF 55-60%, nor LV size & fxn, no RWMA. Impaired LV relaxation / grade 1 diastolic dysfxn, trace TR On Lasix. Referring to cardiology. Problem Orthostatic hypotension (65894114) Orthostatic hypotension (I95.1) Active confirmed Orthostatic vitals performed: Laying - Blood pressure 124/74, HR 102 Standing - Blood pressure 118/60, HR 112 After standing for 2 minutes - patient became dizzy and had to sit down. BP 124/70. Findings consistent with orthostatic hypotension. Encouraged patient to drink plenty of fluids, and to avoid standing up too quickly. Problem Acute sinusitis (85079722) Acute sinusitis, unspecified (J01.90) Active confirmed Doxycycline 100 mg 1 p.o. b.i.d. x10 days. Recheck if not better in 3 to 4 days or sooner if worsening. Problem Acute pharyngitis (462586164) Acute pharyngitis, unspecified (J02.9) Active confirmed Rapid strep negative. Problem Acute upper respiratory infection (25132342) Acute upper respiratory infection, unspecified (J06.9) Active confirmed Start daily oral antihistamine and Flonase intranasal therapy for nasal congestion. Also recommend NetiPot sinus rinses, Mucinex for congestion. Recommend throat coat tea, lozenges, Chloraseptic spray for sore throat. If worsening throat pain, swelling in throat, muffling of voice please return to clinic. Problem Acute bronchitis (17991422) Acute bronchitis, unspecified (J20.9) Active confirmed Recheck if not better in 3 to 4 days or sooner if worsening. Problem Chronic sinusitis (43087550) Chronic sinusitis, unspecified (J32.9) Active confirmed Likely viral. Encouraged patient to stay well hydrated and rest as needed. May take benzonatate for cough. Problem Exacerbation of asthma (883180887) Unspecified asthma with (acute) exacerbation (J45.901) Active confirmed Refilling albuterol MDI and starting prednisone. Call 911 for difficulty breathing Problem Uncomplicated asthma (disorder) (523093601) Unspecified asthma, uncomplicated (J45.909) Active confirmed Continue Trelegy daily and albuterol as needed. Sending prescription for spacer chamber. Patient encouraged to increase albuterol inhaler use to every 4-6 hours for the next 2 days and then resume as needed. Problem Gastro-esophageal reflux disease without esophagitis (926920940) Gastro-esophage al reflux disease without esophagitis (K21.9) Active confirmed Avoid NSAIDs. Continue Omeprazole once daily. Patient has known history of reucrrent gastric ulcers secondary to chronic NSAID use. Problem Gastric ulcer (745527084) Gastric ulcer, unspecified as acute or chronic, without hemorrhage or perforation (K25.9) Active confirmed Continue to avoid use of NSAIDs. Repeat EGD in 2020, per GI recommendations . Problem Non-infective enteritis and colitis (314234716) Noninfective gastroenteritis and colitis, unspecified (K52.9) Active confirmed Symptoms likely due to gastroenteritis . VSS, no signs of volume depletion. No fevers, severe pain, bloody/mucoid stools, tolerating fluid PO intake today, and estimated BMs/day < 6. Discussed conservative treatment with symptomatic management, rehydration and bland diet advance as tolerated. Discussed proper hygiene and provided return/ED precautions to patient. Problem Fatty liver (285517713) Fatty (change of) liver, not elsewhere classified [...] alcohol, low saturated fat diet. Problem Urticaria (54279947) Urticaria, unspecified (L50.9) Active confirmed Improving w/ Lyndsey once daily. Problem Osteoarthritis (096888020) Unspecified osteoarthritis, unspecified site (M19.90) Active confirmed Desires to continue use of PRN Naproxen. Will Rx Vimovo for the patient to provide GI protection, however cautioned the patient about regular use of this medication given her hx of gastritis in the past secondary to NSAIDs. Patient agrees with plan. Problem Pain in wrist (24295205) Pain in right wrist (M25.531) Active confirmed Possibly secondary to carpal tunnel syndrome. Recommended patient to wear wrist splint for the next 2 weeks. Try conservative treatment at home including ice/heat, Tylenol as needed for pain. Patient given a written prescription for right wrist splint to mushroom picker at pharmacy. Problem Pain in wrist (82714589) Pain in left wrist (M25.532) Active confirmed [...] pain persist. Problem Disorder of wrist joint (101581720) Other specified joint disorders, unspecified wrist (M25.839) Active confirmed See above fo r details. Problem Lumbar radiculopathy (195606289) Radiculopathy, lumbar region (M54.16) Active confirmed MRI L-Spine w/o contrast ordered at last visit, awaiting medicaid approval at this time. Continue PT sessions 2-3x/week with [facility]. Has few weeks left remaining. Problem Spasm (03542164) Other muscle spasm (M62.838) Active confirmed Refilling Flexeril. Back pain appears chronic in nature. Recommend heat and ice massage with gentle stretching for back pain. Problem Acquired trigger finger (5428418) Trigger thumb, right thumb (M65.311) Active confirmed [...] would likely be sufficient. Problem Achilles bursitis (711698787) Achilles tendinitis, unspecified leg (M76.60) Active confirmed Follow up with [facility]. Problem Calculus of kidney (85103005) Calculus of kidney (N20.0) Active confirmed Recommend following back up with Urology for further evaluation. Problem Urinary tract infectious disease (disorder) (71260546) Urinary tract infection, site not specified (N39.0) Active confirmed Patient denies symptom improvement on Macrobid, switching to Bactrim DS. Urine culture sent. Increase fluid intake and urine output, holding urine no longer than two hours if possible before voiding. Problem Abscess of vulva (81754232) Abscess of vulva (N76.4) Active confirmed Followed by [facility] - Continue Bactrim DS 1 tablet BID as directed. Improved s/p I&D performed at last visit. Keep scheduled f/u appt with [facility] for next week. Problem Excessive and frequent menstruation (547890584) Excessive and frequent menstruation with regular cycle (N92.0) Active confirmed Patient is trying to concieve. Treating for SHIKHA at this time, likely due to menorrhagia. Problem Irregular menstruation (74521334) Irregular menstruation, unspecified (N92.6) Active confirmed HCG negative. Problem Abnormal uterine bleeding (87852621591609) Abnormal uterine and vaginal bleeding, unspecified (N93.9) Active confirmed Refill of Provera 20 mg TID x 7 days for AUB. Follow up appt scheduled with [facility] in November 2021. Problem Tachycardia (7121403) Tachycardia, unspecified (R00.0) Active confirmed - Follow up with Cardiology as soon as possible. Problem Elevated blood pressure reading without diagnosis of hypertension (772158240) Elevated blood-pressure reading, without diagnosis of hypertension [...] in 1 month. Problem Shortness of breath (309138947) Shortness of breath (R06.02) Active confirmed Duoneb given with marginal improvement in symptoms. Sending patient to ED for PE work-up. She declines EMS but states that she will drive directly to ED. Charge nurse called. Vital signs stable at discharge. Problem Chest pain (80165832) Other chest pain (R07.89) Active confirmed Recommended follow up with [facility]. Problem Chest pain (24007454) Chest pain, unspecified (R07.9) Active confirmed Awaiting referral to Cardiology at this time. Problem Epigastric pain (16166749) Epigastric pain (R10.13) Active confirmed New abdominal pain since starting Ozempic. Will check labs today. Will call patient with results and treat as indicated. Problem Lower abdominal pain (49031286) Lower abdominal pain, unspecified (R10.30) Active confirmed Recommended checking additional labs such as CBC, CMP, but patient denied at this time. If symptoms continue, recommended she follow up for labs. Problem Abdominal pain (62636364) Unspecified abdominal pain (R10.9) Active confirmed Updating labs today. Checking also pancreatic enzymes. Problem Nausea (258496707) Nausea (R11.0) Active confirmed Nausea is associated with Ozempic injections. Resending prescription for Zofran to her pharmacy. Patient encouraged to eat smaller and more frequent meals. Problem Vomiting (523839373) Vomiting, unspecified (R11.10) Active confirmed Patient tried Zofran with no relief. Will start Phenergan for nausea/vomiting . The patient is aware of the sedative effects of this medication and will not drive or drink alcohol while taking it. Problem Dysphagia (67208397) Dysphagia, unspecified (R13.10) Active confirmed Follow-up with GI. Problem Diarrhea (26654792) Diarrhea, unspecified (R19.7) Active confirmed Likely due to recent antibiotic use - Will send stool culture + C. diff EUGENIA. Avoid Immodium at this time as bacterial etiology can not be excluded. Increase PO hydration at home. Will Rx Bentyl for abdominal cramping as needed. Problem Paresthesia (finding) (89490456) Paresthesia of skin (R20.2) Active confirmed Followed by Neurology. Continue Gabapentin 300 mg at bedtime. Problem Abnormal gait (80766222) Unsteadiness on feet (R26.81) Active confirmed Referring for PT. Problem Dysuria (80306440) Dysuria (R30.0) Active confirmed Urinalysi s positive for excess glucose, negative for blood leukoesterase or nitrites. Sending urine sample for culture and sensitivity. Will call patient with results and treat as indicated. Problem Unspecified symptoms and signs involving the genitourinary system (R39.9) Active confirmed Problem Dizziness and giddiness (180513788) Dizziness and giddiness (R42) Active confirmed Patient does have nystagmus and ear fullness. Will try her on meclizine for symptoms of vertigo. Also recommend Zyrtec and Flonase however patient reports that she is unable to tolerate Flonase. Follow through with cardiology referral. Problem Fever (504178974) Fever, unspecified (R50.9) Active confirmed May be related to cellulitis on her right breast, which started approx. 1 week ago. Consider right breast mammogram vs. ULS if no improvement in 2-3 days. Follow up recommended. Problem Malaise (780878642) Other malaise (R53.81) Active confirmed Continue to follow up with PT for strengthening exercises. Problem Fatigue (88562210) Other fatigue (R53.83) Active confirmed Multifactorial in nature given her comorbidities and sedentary lifestyle. Chronic fatigue. Problem Syncope and collapse (888498870) Syncope and collapse (R55) Active confirmed Cardiology referral pending per [facility] records. ED precautions reviewed. Patient encouraged to check blood sugar if she feels presyncope symptoms. Problem Localized enlarged lymph nodes (431200938) Localized enlarged lymph nodes (R59.0) Active confirmed Mammogram in Jul 2020 - BIRADS2. Will perform ULS of the swollen palpable area in the left supraclavicular region for further evaluation. Possibly related to recent COVID-19 vaccine in the L. deltoid from 3 weeks ago. Problem Symptom: generalized (333694743) Other general symptoms and signs (R68.89) Active [...] reduce viral spread. Problem Blood chemistry abnormal (217576810) Other specified abnormal findings of blood chemistry (R79.89) Active confirmed Redrawing liver panel and hepatitis labs today. Suspect Tylenol caused LFT elevation. Patient to avoid Tylenol and EtOH going forward. Will contact patient with results of lab work. Will consider NAFLD workup if LFTs remain elevated despite discontinuing Tylenol use. Problem Glycosuria (95610288) Glycosuria (R81) Active confirmed UA with ++++ glucose, however FSBS 316 in the office. See diabetes note above. Problem Adult health examination (716032428) Encounter for general adult medical examination without abnormal findings (Z00.00) Active confirmed Discussed appropriate health maintenance and prevention topics with patient. Reviewed vaccinations and screening tests. Discussed healthy lifestyle habits to prevent disease and promote wellbeing. Labs pending, will call patient with results and treat as indicated. Re-check for annual PE in 1 year. Problem History and physical examination, follow-up (617860189) Encounter for follow-up examination after completed treatment for conditions other than malignant neoplasm (Z09) Active confirmed see HPI Problem Screening for malignant neoplasm of cervix (652194495) Encounter for screening for malignant neoplasm of cervix (Z12.4) Active confirmed History of multiple abnormal paps. Refer to [facility] to updating Pap upon patient request. Problem Vaccination given (141649417) Encounter for immunization (Z23) Active confirmed Tdap given by [facility] in Left deltoid Lot:[id number] EXP: 02/23/27 Tdap updated today. Problem test equivocal (319013127) Encounter for test, result unknown (Z32.00) Active confirmed Urine HCG negative. Will perfrom serum qualatative to confirm (patient requested). Avoid restarting Phentermine until lab confirms not . Patient agrees with the plan. Problem test positive (242962157) Encounter for test, result positive (Z32.01) Active confirmed Will perform serum HCG qual/quant performed, since our office is out of urine HCG test at this time. Starting vitamin once daily. Follow up with [facility] if confirmed. Problem care (687948245) Encounter for supervision of normal , unspecified, unspecified trimester (Z34.90) Active confirmed Problem Dietary management surveillance (425973834) Dietary counseling and surveillance (Z71.3) Active confirmed [...] can cause defects. . Problem Counseling requested (694858843) Persons encountering health services in other specified circumstances (Z76.89) Active confirmed Although phentermine may be an okay option for her should she continue to lose weight, in light of recent events, advised that we will hold this prescription for now. Encouraged her to continue weight loss and exercise and after her neurology evaluation consider restarting or discussing an alternative option. Problem Health status (391737662) Other specified health status (Z78.9) Active confirmed Followed by [facility] specialist. Currently on Provera but plans to start Clomid later this year. Problem History of urinary stone (953254255) Personal history of urinary calculi (Z87.442) Active [...] Urology on 01/14. Problem Pure hypercholesterole susie (908582178) Pure hypercholestero lemia, unspecified (E78.00) Active confirmed Check lipid and liver panel. Low-cholesterol diet. Problem Muscle pain (63806268) Myalgia, unspecified site (M79.10) Active confirmed Briefly discussed fibromyalgia with patient. Based on brief interview she does appear to meet criteria but no official diagnosis has been made yet. Would like to further discuss this with patient at future visits to see if we can get her off of Flexeril. Will refill Flexeril today. Problem Inflammatory disorder of breast (124407619) Mastitis without abscess (N61.0) Active confirmed Improving. Will order screening mammogram at this time which patient requested today. No prior screening in the past. Maternal grandmother w/ hx of breast cancer. Problem Lump in upper inner quadrant of left breast (finding) (911324679406420) Unspecified lump in the left breast, upper inner quadrant (N63.22) Active confirmed Mammogram ordered today. Problem Prediabetes (067121622) Prediabetes (R73.03) Active confirmed Problem COVID-19 (849612878) COVID-19 (U07.1) Active confirmed PCR testing today is negative. Problem Esophagitis (disorder) (59302726) Esophagitis, unspecified without bleeding (K20.90) Active confirmed Continue Protonix and Carafate. Problem Headache (65436484) Headache, unspecified (R51.9) Active confirmed Uncontrolled. Patient has not seen [facility] who have recommended neurology consult prior to moving forward with treatment modalities. Resending Flexeril since this has helped somewhat, however I would not recommend this as a residential solution. Problem Encounter for screening for COVID-19 (Z11.52) Active confirmed Negative rapid COVID-19/RSV/Fl u via PCR today. Results reviewed with patient. Problem Exposure to acute respiratory syndrome coronavirus 2 (880316712) Contact with and (suspected) exposure to COVID-19 (Z20.822) Active confirmed Problem Depression (035136871) Depression, unspecified (F32.A) Active confirmed Followed by Psychiatry. Problem Low back pain (318291814) Low back pain, unspecified (M54.50) Active confirmed Urinalysis negative for blood, low suspicion for migrating kidney stones. Seems musculoskeletal given tenderness on exam and exacerbated pain with certain movements. Recommend continuing Tylenol for pain relief. Also recommend stretching exercises. Problem Acute cough (3067936447949462 04) Acute cough (R05.1) Active confirmed PCR negative for COVID, flu, RSV. Given short duration of symptoms, Patient advised to treat symptomatically and follow-up if no improvement over the course of 7 to 10 days. Problem Cough (finding) (22010472) Cough, unspecified (R05.9) Active confirmed Isolate until PCR results become available. This does appear viral. Discussed OTC medications for symptomatic relief. Educated patient on viral vs bacterial infections and use of antibiotics. Return precautions given. Patient advised to speak with a medical provider about next steps if they do test positive. Problem Post-acute COVID-19 (disorder) (3474814278) Post COVID-19 condition, unspecified (U09.9) Active confirmed Symptoms consistent with long covid. Educated that these symptoms could last for weeks-months due to COVID-19. Continue to stay hydrated and drink plenty of fluids, stay active. Can treat symptomatically if needed. Problem Obese class III (finding) (801544926) Obesity, class 3 (E66.813) Active confirmed Encouraged heart healthy diet modifications and increased exercise of moderate intensity 3-4 times per week as tolerated. Reviewed the numerous benefits of reducing weight. Problem Body mass index 40+ - severely obese (098311040) Body mass index (BMI) 40.0-44.9, adult (Z68.41) Active confirmed Problem Body mass index 40+ - severely obese (099690525) Body mass index (BMI) 45.0-49.9, adult (Z68.42) Active confirmed Problem Panic disorder (926789365) Panic disorder [episodic paroxysmal anxiety] without agoraphobia [...] that she is seeing. She has contacted [facility]. I have advised her that she also has an appointment with her PCP on Friday. Problem Candidiasis (71278231) Candidiasis, unspecified (B37.9) Inactive confirmed Patient contacts [...] prescription for fluconazole. Problem Hypertensive heart failure (95352794) Hypertensive heart disease with heart failure (I11.0) Inactive confirmed Continue current treatment. Clinically doing well. Problem Seizure (87916852) Unspecified convulsions (R56.9) Inactive confirmed See HPI. Keep scheduled follow up appointment with [facility]. Will allow them to further drive management of this. 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) Inactive confirmed Vital Signs Heart Rate 90 /min 11/04/2024 Temperature 98.40 degrees Fahrenheit 11/04/2024 Height-cm 162.56 cm 11/04/2024 Oximetry 97 % 11/04/2024 Blood pressure diastolic 84 mm Hg 11/04/2024 Weight-kg 108.41 kg 11/04/2024 Height 64.00 in 11/04/2024 Blood pressure systolic 122 mm Hg 11/04/2024 Weight 239.0000 lbs 11/04/2024 BMI 41.02 kg/m2 11/04/2024 Encounters Encounter Location Date Provider Diagnosis [facility] [place] [address] [place] [address] 06/07/2024 Provider Migration [facility] [place] [address] [place] [address] 06/16/2024 Provider Migration [facility] [address] [place] [address] 08/02/2024 Provider Migration [facility] [address] [place] [address] 09/06/2024 Provider Migration [facility] [address] [place] [address] 10/02/2024 Benedicto Talley [facility] [address] [place] [address] 10/05/2024 Provider Migration [facility] [address] [place] [address] 10/14/2024 Provider Migration [facility] [address] [place] [address] 11/04/2024 Provider Migration [facility] [address] [place] [address] 03/05/2025 Provider Migration [facility] [address] [place] [address] 03/06/2025 Provider Migration Plan Of Treatment No Information Insurance Providers Payer Name Payer Address Payer Phone Subscriber Number Group Number Insured Name Patient Relationship to Insured Coverage Start Date Coverage End Date [employer] [address] [address] [place] [address] [id number] Georgia Swanson Self - patient is the insured 1 Medicaid [address] [address] [place] [address] [id number] Georgia Swanson Self - patient is the insured 1 [...]
[2025-06-06 22:31] VITALS: BP 141/74; PULSE 72; O2SAT 99
--- OUTSIDE RECORDS SUMMARY | 2025-06-06 22:32 | XMS_ITS | Encounter Summary ---
Author Organization [employer] (a.k[facility]a. [facility] [employer]) Address [address] [place] [address] Care Team Providers Care Donor Relations Associate Name Role Phone Naila Vallejo MD Primary Care Provider + Unassigned, Doctor RAMIREZ Primary Care Provider Unav ailable Mehnaz Obando NP Primary Care Provider [phone] [place] Joseph Srinivasan Primary Care Provide r Aislinn Merlos Primary Care Provider [phone] Unassigned, Doctor RAMIREZ Primary Care Provider Unav ailable Reason for Visit * Reason Comments Refill Request Encounter Details Date Type Department Care Team (Late st Contact Info) Description 04/27/2016 Refill [facility] [address] [place], [place] [id number] Antoine Briceno MD [address] [place] [address] Refill Request Social History Tobacco Use Types Packs/Day Years Used Date Smoking Tobacco: Never Smokeless Tobacco: Never Alcohol Use Standard Drinks/Week Comments Yes 0 (1 standard drink = 0.6 oz pur e alcohol) rare Comments Unknown Sex and Gender Information Value Date Recorded Sex Assigned at Not on file Legal Sex Female 11:09 PM EDT Gender Identity Not on file Sexual Orientation Not on file 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 Answer Date of Assessment Author Status No 05/09/2015 10:31 AM Blank Peck RN A ctive * Are you blind or do you have serious difficulty seeing, even when wearing glasses? Answer Date of Assessment Author Status No 05/09/2015 10:31 AM Blank Peck RN A ctive * Do you have serious difficulty walking or climbing stairs? (5 years old or older) Answer Date of Assessment Author Status Yes 05/09/2015 10:31 AM Blank Peck RN A ctive * Do you have difficulty dressing or bathing? (5 years old or older) Answer Date of Assessment Author Status Yes 05/09/2015 10:31 AM Blank Peck RN A ctive * Because of a physical, mental, or emotional condition, do you have difficulty doing errands alone such as visiting a doctor's office or shopping? (15 years old or older) Answer Date of Assessment Author Status No 05/09/2015 10:31 AM Blank Peck RN A ctive documented as of this encounter Mental Status * Because of a physical, mental, or emotional condition, do you have serious difficulty concentrating, remembering, or making decisions? (5 years old or older) Answer Entry Date Author Status No 05/09/2015 10:31 AM Blank Peck RN A ctive documented in this encounter Plan of Treatment Not on file documented as of this encounter Visit Diagnoses Not on filedocumented in this encounter Additional Health Concerns Infection Onset Date Last Indicated Resolved Time Rule Out - Coronavirus (CoVID-19) 04/27/2021 021 04/27/2021 8:25 PM EDT Rule Out - Coronavirus (CoVID-19) 11/27/2021 022 11/28/2021 2:48 AM EDT Coronavirus (CoVID-19) 11/27/2021 11/27/202112/25 2:32 AM EDT Rule Out - Coronavirus (CoVID-19) 07/20/2024 025 07/20/2024 9:56 AM EST documented as of this encounter Care Teams Donor Relations Associate Relationship Specialty Start Date End Date Naila Vallejo MD PCP - General Family Medicine 09/20/13 04/01/17 Unassigned, MD Daniella PCP - General 04/02/17 09/09/17 Mehnaz Obando NP PCP - General Internal Medicine 09/10/17 03/01/19 Joseph Moraes [address] [place] [address] PCP - General Group provider 03/02/19 04/25/19 Aislinn Merlos PA [address] [place] [address] [place] [address] PCP - General Family Medicine 04/26/19 03/10/22 Unassigned, MD Daniella PCP - General Family Medicine 03/11/22 documented as of this encounter Additional Source Comments PROHIBITION ON REDISCLOSURE: In [...] prosecute any alcohol or drug abuse patient. [facility])
--- OUTSIDE RECORDS SUMMARY | 2025-06-06 22:32 | XMS_ITS | Encounter Summary ---
Author Organization [facility] ([facility]) Address [address] [place] [address] Care Team Providers Care Double Needle Stitcher Name Role Phone Unassigned, Doctor Primary Care Provider Unav ailable Encounter Details Date Type Department Care Team (Late st Contact Info) Description 05/21/2024 Prep for Surgery [facility] - Orthoped[facility] [address] [facility] [address] [place], [place] [id number] Maddi Villa PA-C [address] [place], [place] [id number] Social History Tobacco Use Types Packs/Day Years [...] Answer Date of Assessment Author Status No 04/27/2021 11:56 PM EDT Rahul San RN Active * Are you blind or do you have serious difficulty seeing, even when wearing glasses? Answer Date of Assessment Author Status No 04/27/2021 11:56 PM EDT Rahul San RN Active * Do you have serious difficulty walking or climbing stairs? (5 years old or older) Answer Date of Assessment Author Status Yes 04/27/2021 11:56 PM EDT Rahul San RN Active * Do you have difficulty dressing or bathing? (5 years old or older) Answer Date of Assessment Author Status Yes 04/27/2021 11:56 PM EDT Rahul San RN Active * Because of a physical, mental, or emotional condition, do you have difficulty doing errands alone such as visiting a doctor's office or shopping? (15 years old or older) Answer Date of Assessment Author Status No 04/27/2021 11:56 PM EDT Rahul San RN Active documented as of this encounter Mental Status * Because of a physical, mental, or emotional condition, do you have serious difficulty concentrating, remembering, or making decisions? (5 years old or older) Answer Entry Date Author Status No 04/27/2021 11:56 PM EDT Rahul San RN Active documented in this encounter Plan of Treatment Not on file documented as of this encounter Visit Diagnoses Diagnosis Right foot pain- Primary Pain in limb documented in this encounter Additional Health Concerns Infection Onset Date Last Indicated Resolved Time Rule Out - Coronavirus (CoVID-19) 07/20/2024 025 07/20/2024 9:56 AM EST Assessment Noted Time A fall risk assessment has been complete d for the patient 05/20/2024 3:21 PM EST documented as of this encounter Care Teams Double Needle Stitcher Relationship Specialty Start Date End Date Unassigned, [...] prosecute any alcohol or drug abuse patient. [facility] ([facility]
--- OUTSIDE RECORDS SUMMARY | 2025-06-06 22:32 | XMS_ITS | Encounter Summary ---
Author Organization [facility] (a.k.a. [facility]) Address [address] [place] [address] Care Team Providers Care Research Lab Assistant Name Role Phone Mehnaz Obando NP Primary Care Provider [phone] [place] Joseph Srinivasan Primary Care Provide r Aislinn Merlos Primary Care Provider [phone] Unassigned, Doctor Primary Care Provider Unav ailable Encounter Details Date Type Department Care Team (Late st Contact Info) Description 04/14/2018 Prep for [facility] [address] [facility] [address] [place] [address] Jefe Veliz MD [address] [place] [id number] Social History Tobacco Use Types Packs/Day Years Used Date Smoking Tobacco: Never Smokeless Tobacco: Never Alcohol Use Standard Drinks/Week Comments Yes 0 (1 standard drink = 0.6 oz pur e alcohol) rare Comments No Sex and Gender Information Value Date Recorded Sex Assigned at Not on file Legal Sex Female 11:09 PM EDT Gender Identity Not on file Sexual Orientation Not on file 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 No 04/14/2018 11:55 AM Marlys Cevallos RN Active Are you blind or do you have serious difficulty seeing, even when wearing glasses? No 04/14/2018 11:55 AM Marlys Cevallos RN Active Because of a physical, mental, or emotional condition, do you have serious difficulty concentrating, remembering, or making decisions? (5 years old or older) No 04/14/2018 11:55 AM Marlys Cevallos RN Active Do you have serious difficulty walking or climbing stairs? (5 years old or older) No 04/14/2018 11:55 AM Marlys Cevallos RN Active Do you have difficulty dressing or bathing? (5 years old or older) No 04/14/2018 11:55 AM Marlys Cevallos RN Active Because of a physical, mental, or emotional condition, do you have difficulty doing errands alone such as visiting a doctor's office or shopping? (15 years old or older) No 04/14/2018 11:55 AM Marlys Cevallos R N Active Do you have any communicatio n or swallowing concerns? No 04/14/2018 11:55 AM Marlys Cevallos R N Active * Are you deaf or do you have serious difficulty hearing? Answer Date of Assessment Author Status No 04/14/2018 11:55 AM Marlys Cevallos RN Active * Are you blind or do you have serious difficulty seeing, even when wearing glasses? Answer Date of Assessment Author Status No 04/14/2018 11:55 AM Marlys Cevallos RN Active * Do you have serious difficulty walking or climbing stairs? (5 years old or older) Answer Date of Assessment Author Status No 04/14/2018 11:55 AM Marlys Cevallos RN Active * Do you have difficulty dressing or bathing? (5 years old or older) Answer Date of Assessment Author Status No 04/14/2018 11:55 AM Marlys Cevallos RN Active * Because of a physical, mental, or emotional condition, do you have difficulty doing errands alone such as visiting a doctor's office or shopping? (15 years old or older) Answer Date of Assessment Author Status No 04/14/2018 11:55 AM Marlys Cevallos RN Active documented as of this encounter Mental Status * Because of a physical, mental, or emotional condition, do you have serious difficulty concentrating, remembering, or making decisions? (5 years old or older) Answer Entry Date Author Status No 04/14/2018 11:55 AM Marlys Cevallos RN Active documented in this encounter H&P Notes * Jefe Veliz MD - 04/14/2018 10:40 AM EDT Chief Complaint Left Kidney Stone HPI: urological: 42 yo with hx of stones, , UTI. Discomfort noted in lower back. Pt has multiple allergies.She was actively trying to become at her previous visit, therefore unable to preform a CT. She wasseen in ER and treated for pyelonephritis in October. She was seen in the Emergency Room over the weekend and reportedthat she was not and with significant pain, a CT was obtained. This revealed a 6.2mm X 1.8mm stone in the left UPJ with moderate hydronephrosis with multiple nonobstructing stones bilaterally. US on 04/04 revealed cortical atrophy suggestive of medical renal disease. Pain has increased to 7/10 and at times 10/10, managed with Narco. No nausea or vomiting. No gross hematuria. ROS: General/Constitutional: Patient denies chills, fever, night sweats, weight loss. Ophthalmologic: Patient denies blurred vision, change in vision, double vision. ENT: Patient denies blocked ear(s), decreased hearing, difficulty swallowing. Sore throat denies. Swollen glands denies. Respiratory: Patient denies chest pain, hemoptysis, pain with inspiration, shortness of breath. Asthma admits. Cough denies. Sleep apnea denies. Wheezing denies. Cardiovascular: Patient denies chest pain, chest pain at rest, dizziness. Irregular heartbeat denies. Orthopnea denies. Gastrointestinal: Patient denies nausea, vomiting, rectal bleeding. Patient complaining of abdominal pain, left flank. Has decreased appetite. Genitourinary: Admits Abdominal pain/swelling. Denies Blood in urine. Denies Difficulty urinating. Admits Frequent urination. Admits Kidney problems. Admits Pain in lower back. Denies Painful urination. Musculoskeletal: Patient complaining of chronic pain in joints, extremities. Integumentary: Rash denies. Neurologic: Dizziness denies. Gait abnormality denies. Tingling/Numbness denies. Psychiatric: ... Hx BPDO. Denies Anxiety. Denies Auditory/visual hallucinations. Denies Depressed mood. Medical History: DM, HLD. Surgical History: Ankle arth roscopy/surgery (68108) , Appendectomy , Caesarean section , Cholecystectomy , Hernia repair , Hysteroscopy dx sep proc (57681) , Kidney stone extraction , Removal of ovarian cyst(s) (17995) , Liver surgery procedure (29185):biopsy . Hospitalization/Major Diagnostic Procedure: Denies Past Hospitalization. Family History: Mother: Autoimmune disease;. Social History: Tobacco Use: Tobacco Us e/Smoking Are you a nonsmoker Medications: Taking Lisinopril , Taking GlipiZIDE , Taking Ferrous Sulfate , Taking Maxalt , TakingVitamin B Complex , Taking Ventolin HFA , Taking Symbicort , Taking Folic Acid , Taking Simvastatin , Taking Cyclobenzaprine HCl Allergies: GADOLINIUM-CONTAINING CONTRAST MEDIA: ReportDt:01/23/2016, MONTELUKAST: ReportDt:01/23/2016, PENICILLINS: ReportDt:01/23/2016, SHELLFISH DERIVED: ReportDt:01/23/2016, TAPENTADOL: ReportDt:01/23/2016, AZITHROMYCIN: ReportDt:01/23/2016, ERYTHROMYCIN BASE: ReportDt:01/23/2016, IODINE: ReportDt:01/23/2016, LACTASE: ReportDt:01/23/2016, NITROGLYCERIN: ReportDt:01/23/2016. Objective: Vitals: Ht 64.0 in, Wt 286 lbs, BP 120/76 mm Hg, BMI 49.09 Index, Wt-kg 129.73 kg. Examination: General Exam ination: GENERAL APPEARANCE: well developed, well nourished, in no acute distress. HEAD: normocephalic, atraumatic. EYES: pupils equal, round, reactive to light and accommodation, sclera non-icteric. EARS: normal. ORAL CAVITY: m ucosa moist. NECK/THYROID: neck supple, no cervical lymphadenopathy. LYMPH NODES: no palpable adenopathy. SKIN: no rashes. HEART: regular ra te and rhythm,normal, no murmurs. LUNGS: clear to auscultation bilaterally. ABDOMEN: soft, nontender, nondistended , bowel sounds present, normal. MUSCULOSKELETAL: full range of motion, normal. EXTREMITIES: no edema, full range of motion. NEUROLOGIC: nonfocal, alert and oriented. Assessment: Assessment: 1. Hydronephrosis concurrent with and due to calculi of kidney and ureter - N13.2 (Primary) 2. Nephrolithiasis - N20.0 Discussed with patient options for management of the stone. She elected to move forward with ESWL in 9 days. Plan: 1. Ne phrolithiasis Start Percocet Tablet , 5-325 MG, 1 tablet as needed, Orally, every 6 hrs, 5 days, 20, Refills 0 ; Start Flomax Capsule, 0.4 MG, 1 capsule, Orally, Once a day, 30 day(s), 30, Refills 1 ; Start Ketorolac Tromethamine Tablet, 10 MG, 1 tablet with food or milk as needed, Orally, every 6 hrs, 5 day(s), 20, Refills 0 . LAB: Urinalysis, Auto W/O Microscopy Urine-Color yellow Appearance clear Glucose neg Bilirubin neg Ketones neg Specific Dysart 1.010 Occult Blood trace- Intact pH 5.5 Protein neg Urobilinogen,Semi-Qn 0.2 Nitrite, Urine neg Leukocytes 3+ Maribel Plata 04/13/2018 02:03:42 PM > voided urine Clinical Notes: She has zofran and Flomax (refill given) from her ER visit. She has 2 Narco tabletsleft. Prescribed toradol for 4 days and then change to Percocet over the weekend in preparation for ESWL a nd pain control. Encoura ged use of laxative to manage constipation, increase fluids. documented in this encounter Plan of Treatment [...] documented as of this encounter Care Teams Research Lab Assistant Relationship Specialty Start Date End Date TopherMehnaz JUAN Arcos PCP - General Internal Medicine 09/10/17 03/01/19 MequonJoseph Dietz [address] [place] [id number] PCP - General Group provider 03/02/19 04/25/19 Aislinn Merlos PA [address] [place] [address] [place] [address] PCP - General Family Medicine 04/26/19 03/10/22 Unassigned, DoctorMD [address] [place] [address] [place] [address] PCP - General Family Medicine 03/11/22 documented [...] prosecute any alcohol or drug abuse patient. [facility] [email or web address] (a[facility]a. [facility])
--- OUTSIDE RECORDS SUMMARY | 2025-06-06 22:32 | XMS_ITS | Encounter Summary ---
Author Organization [employer] (a.k[facility]a. [facility] [employer]) Address [address] [place] [address] Care Team Providers Care Manager Of School Name Role Phone Naila Vallejo MD Primary Care Provider + Unassigned, Doctor RAMIREZ Primary Care Provider Unav ailable Mehnaz Obando NP Primary Care Provider [phone] [place] Joseph Srinivasan Primary Care Provide r Aislinn Merlos Primary Care Provider [phone] Unassigned, Doctor RAMIREZ Primary Care Provider Unav ailable Reason for Visit * Reason Comments Refill Request Encounter Details Date Type Department Care Team (Late st Contact Info) Description 03/28/2016 Refill [facility] [address] [place], [place] [id number] Antoine Briceno MD [address] [place] [address] Refill Request Social History Tobacco Use Types [...] documented as of this encounter Care Teams Manager Of School Relationship Specialty Start Date End Date Naila Vallejo MD PCP - General Family Medicine 09/20/13 04/01/17 Unassigned, MD Daniella PCP - General 04/02/17 09/09/17 Mehnaz Obando NP PCP - General Internal Medicine 09/10/17 03/01/19 Joseph Moraes [address] [place] [address] PCP - General Group provider 03/02/19 04/25/19 Aislinn Merlos PA [address] [place] [address] [place] [address] PCP - General Family Medicine [...] prosecute any alcohol or drug abuse patient. [facility] [employer] (a.k[employer]a. [facility])
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
--- OUTSIDE RECORDS SUMMARY | 2025-06-06 22:33 | XMS_ITS | Encounter Summary ---
Author Organization [employer] [facility] [employer]) Address [address] [place] [address] Care Team Providers Care [facility] Cook Name Role Phone Aislinn Merlos Primary Care Provider [phone] Unassigned, Doctor Primary Care Provider Unav ailable Encounter Details Date Type Department Care Team (Late st Contact Info) Description 11/25/2021 Telemedicine [facility] [address] [place] [address] Nolberto Crystal AttendingMD [address] [place] [address] Social History Tobacco Use Types Packs/Day Years Used Date Smoking Tobacco: Never Smokeless Tobacco: Never Alcohol Use Standard Drinks/Week Comments Yes 0 (1 standard drink = 0.6 oz pur e alcohol) rare Overall Financial Resource Strain (CARDIA) Answe r Date Recorded Difficulty of Paying Living Expenses Somewhat [address] 03/12/2019 PHQ-2 Answer Date Recorded PHQ2 Score 1 11/21/2021 Hunger Vital Sign Answer Date Recorded Worried [...] San RN Active documented in this encounter Progress Notes * Nolberto Crystal MD - 11/25/2021 7:06 PM EDT Clinical summary: Session Summary Report for Virtual Visit using the [employer] platform, electronically signed on Date [id number] with Provider Dionicio Murrieta Diagnosis: Candidiasis of vulva and vagina Diagnosis ICD: B37.3 Subjective: The patient reports that she was seen yesterday at the emergency room for thrush, she was given Diflucan as well as sent home with the pill. She is taking her pill today. She reports that she has vaginal itching and irritation. she reports that it was felt that her thrush with secondary to recent endoscopy. Objective: The patient speaks in clear sentences and is awake and alert and in no distress and able to give a clear and concise history. Assessment: Oral vaginal candidiasis Plan: At this point patient has taken fluconazole, will need to wait and see for response to the treatment. Prescription: HYDROmorphone (PF) (Self Reported) Prescription: morphine (Self Reported) Prescription: ondansetron 4 mg Tab (Self Reported) Prescription: methylPREDNISolone 4 mg Dspk (Self Reported) Prescription: morphine (Self Reported) Prescription: budesonide-formoteroL 160-4.5 mcg/actuation Hfaa (Self Reported) Prescription: sodium chloride (Self Reported) Prescription: HYDROmorphone (PF) (Self Reported) Prescription: enoxaparin (Self Reported) Prescription: sucralfate 1 gram Tab (Self Reported) Prescription: cholecalciferol (Self Reported) Prescription: Respiratory Equipment (Self Reported) Prescription: promethazine (PHENERGAN) 25 mg/mL injection (Self Reported) Prescription: HYDROmorphone (Self Reported) Prescription: empagliflozin 10 mg Tab (Self Reported) Prescription: zolpidem (Self Reported) Prescription: perflutren lipid microsphere (DEFINITY) 1.1 mg/mL injection (Self Reported) Prescription: dicyclomine 20 mg Tab (Self Reported) Prescription: nortriptyline 25 mg Cap (Self Reported) Prescription: diphenhydrAMINE (Self Reported) Prescription: gabapentin 100 mg Cap (Self Reported) Prescription: SYMBICORT INHL (Self Reported) Prescription: morphine (Self Reported) Prescription: ferrous sulfate 325 mg (65 mg iron) Tab (Self Reported) Prescription: budesonide-formoteroL 160-4.5 mcg/actuation Hfaa (Self Reported) Prescription: ferrous sulfate 325 mg (65 mg iron) Tab (Self Reported) Prescription: diazePAM (Self Reported) Prescription: srqeliirbt-zyvpyajplelwk-yxvd (Self Reported) Prescription: cyanocobalamin 500 mcg Tab (Self Reported) Prescription: ondansetron (Self Reported) Prescription: fentaNYL (Self Reported) Prescription: aspirin (Self Reported) Prescription: famotidine (Self Reported) Prescription: morphine (Self Reported) Prescription: folic acid (Self Reported) Prescription: ketorolac (Self Reported) Prescription: omeprazole 40 mg Cpdr (Self Reported) Prescription: metroNIDAZOLE 0.75 % Gel (Self Reported) Prescription: midazolam (Self Reported) Prescription: enoxaparin (Self Reported) Prescription: LORazepam 1 mg Tab (Self Reported) Prescription: tamsulosin (Self Reported) Prescription: polyethylene glycol (Self Reported) Prescription: nortriptyline (Self Reported) Prescription: enoxaparin (Self Reported) Prescription: HYDROcodone-acetaminophen (Self Reported) Prescription: B-12 DOTS ORAL (Self Reported) Prescription: albuterol HFA (Self Reported) Prescription: cyanocobalamin (Self Reported) Prescription: predniSONE (Self Reported) Prescription: SYMBICORT INHL (Self Reported) Prescription: oxyCODONE (Self Reported) Prescription: traMADoL 50 mg Tab (Self Reported) Prescription: acetaminophen (Self Reported) Prescription: oxyCODONE-acetaminophen (Self Reported) Prescription: insulin lispro (Self Reported) Prescription: fentaNYL (Self Reported) Prescription: metroNIDAZOLE 500 mg Tab (Self Reported) Prescription: cholecalciferol (Self Reported) Prescription: metoclopramide (Self Reported) Prescription: cyclobenzaprine 5 mg Tab (Self Reported) Prescription: HYDROcodone-acetaminophen (Self Reported) Prescription: HYDROcodone-acetaminophen 5-325 mg Tab (Self Reported) Prescription: famotidine (Self Reported) Prescription: unknown home medication (Self Reported) Prescription: SUMAtriptan 50 mg Tab (Self Reported) Prescription: prochlorperazine (Self Reported) Prescription: dextrose 50% in water (Self Reported) Prescription: Darvocet-N 100 100-650 mg Tab (Self Reported) Prescription: rizatriptan 10 mg Tab (Self Reported) Prescription: medroxyPROGESTERone 10 mg Tab (Self Reported) Prescription: sodium chloride (Self Reported) Prescription: fentaNYL (Self Reported) Prescription: cholecalciferol 50 mcg (2,000 unit) Cap (Self Reported) Prescription: sodium chloride (Self Reported) Prescription: folic acid 400 mcg Tab (Self Reported) Prescription: HYDROcodone-acetaminophen (Self Reported) Prescription: budesonide-formoteroL 160-4.5 mcg/actuation Hfaa (Self Reported) Prescription: famotidine (Self Reported) Prescription: HYDROmorphone (Self Reported) Prescription: oxyCODONE-acetaminophen 5-325 mg Tab (Self Reported) Prescription: cyclobenzaprine 5 mg Tab (Self Reported) Prescription: sodium chloride (Self Reported) Prescription: morphine PF (Self Reported) Prescription: lamoTRIgine 25 mg Tab (Self Reported) Prescription: pyridoxine 50 mg Tab (Self Reported) Prescription: albuterol HFA 90 mcg/actuation Hfaa (Self Reported) Prescription: oxyCODONE-acetaminophen (Self Reported) Prescription: pantoprazole (Self Reported) Prescription: pregabalin 25 mg Cap (Self Reported) Prescription: oxyCODONE-acetaminophen (Self Reported) Prescription: morphine PF (Self Reported) Prescription: nitroglycerin (Self Reported) Prescription: esomeprazole (Self Reported) Prescription: oxyCODONE (Self Reported) Prescription: ondansetron (Self Reported) Prescription: ondansetron ODT (Self Reported) Prescription: oxyCODONE-acetaminophen (Self Reported) Prescription: ketorolac (Self Reported) Prescription: albuterol HFA (Self Reported) Prescription: zolpidem (Self Reported) Prescription: diazePAM (Self Reported) Prescription: dilTIAZem 30 mg Tab (Self Reported) Prescription: oxyCODONE (Self Reported) Prescription: polyethylene glycol (Self Reported) Prescription: ABILIFY ORAL (Self Reported) Prescription: ketorolac 10 mg Tab (Self Reported) Prescription: bacitracin zinc-polymyxin B (Self Reported) Prescription: oxyCODONE-acetaminophen (Self Reported) Prescription: ibuprofen 800 mg Tab (Self Reported) Prescription: oxyCODONE (Self Reported) Prescription: oxyCODONE-acetaminophen (Self Reported) Prescription: buprenorphine 10 mcg/hour Ptwk (Self Reported) Prescription: HYDROcodone-acetaminophen 5-325 mg Tab (Self Reported) Prescription: famotidine (PF)-NaCl (iso-os) (Self Reported) Prescription: ibuprofen 800 mg Tab (Self Reported) Prescription: sulfur hexafluoride microsphr (Self Reported) Prescription: morphine (Self Reported) Prescription: HYDROcodone-acetaminophen 5-325 mg Tab (Self Reported) Prescription: clindamycin 300 mg Cap (Self Reported) Prescription: gabapentin 100 mg Cap (Self Reported) Prescription: esomeprazole (Self Reported) Prescription: [place] 5-325 mg Tab (Self Reported) Prescription: enoxaparin (Self Reported) Prescription: dextrose 50% in water (Self Reported) Prescription: diazePAM (Self Reported) Prescription: SYMBICORT INHL (Self Reported) Prescription: fbacytwfpy-scpeecctbulkl-capb (Self Reported) Prescription: sodium chloride (Self Reported) Prescription: oxyCODONE-acetaminophen (Self Reported) Prescription: dextrose 50% in water (Self Reported) Prescription: yonwmovqfs-caolsvmosfmij-wigh 50-325-40 mg Tab (Self Reported) Prescription: oxyCODONE-acetaminophen 5-325 mg Tab (Self Reported) Prescription: ciprofloxacin (Self Reported) Prescription: albuterol HFA (Self Reported) Prescription: metoprolol tartrate 25 mg Tab (Self Reported) Prescription: HYDROcodone-acetaminophen 5-325 mg Tab (Self Reported) Prescription: promethazine 25 mg Tab (Self Reported) Prescription: ibuprofen 800 mg Tab (Self Reported) Prescription: oxyCODONE-acetaminophen 5-325 mg Tab (Self Reported) Prescription: polyethylene glycol (Self Reported) Prescription: ondansetron 4 mg Tab (Self Reported) Prescription: insulin lispro (Self Reported) Prescription: Percocet 7.5-325 mg Tab (Self Reported) Prescription: cyanocobalamin (Self Reported) Prescription: fluconazole 150 mg Tab (Self Reported) Prescription: exenatide microspheres 2 mg/0.65 mL Pnij (Self Reported) Prescription: carBAMazepine XR 100 mg Tb12 (Self Reported) Prescription: diazePAM (Self Reported) Prescription: Symbicort 160-4.5 mcg/actuation Hfaa (Self Reported) Prescription: oxyCODONE-acetaminophen 5-325 mg Tab (Self Reported) Prescription: oxyCODONE (Self Reported) Prescription: acetaminophen (Self Reported) Prescription: enoxaparin 40 mg/0.4 mL Syrg (Self Reported) Prescription: morphine (PF) in 0.9 % sod chl (Self Reported) Prescription: oxyCODONE-acetaminophen (Self Reported) Prescription: morphine (Self Reported) Prescription: pregabalin 50 mg Cap (Self Reported) Prescription: traMADoL-acetaminophen 37.5-325 mg Tab (Self Reported) Prescription: sulfamethoxazole-trimethoprim 800-160 mg Tab (Self Reported) Prescription: zolpidem (Self Reported) Prescription: sodium chloride (Self Reported) Prescription: diazePAM (Self Reported) Prescription: gabapentin 100 mg Cap (Self Reported) Prescription: gabapentin (Self Reported) Prescription: ketorolac (Self Reported) Prescription: nitroglycerin (Self Reported) Prescription: lamoTRIgine 25 mg Tab (Self Reported) Prescription: naproxen 500 mg Tab (Self Reported) Prescription: ibuprofen 800 mg Tab (Self Reported) Prescription: docusate sodium 100 mg Cap (Self Reported) Prescription: oxyCODONE-acetaminophen 5-325 mg Tab (Self Reported) Prescription: OneTouch Ultra Test Strp (Self Reported) Prescription: HYDROcodone-acetaminophen 5-325 mg Tab (Self Reported) Prescription: docusate sodium (Self Reported) Prescription: HYDROcodone-acetaminophen 5-325 mg Tab (Self Reported) Prescription: alum-mag hydroxide-simeth (Self Reported) Prescription: cyanocobalamin 1,000 mcg/mL Soln (Self Reported) Prescription: atorvastatin (Self Reported) Prescription: Abilify 10 mg Tab (Self Reported) Prescription: dextrose (Self Reported) Prescription: albuterol HFA (Self Reported) Prescription: cyanocobalamin 1,000 mcg/mL Soln (Self Reported) Prescription: albuterol HFA (Self Reported) Prescription: oxyCODONE-acetaminophen (Self Reported) Prescription: lidocaine (Self Reported) Prescription: oxyCODONE 5 mg Tab (Self Reported) Prescription: lactated Ringer's (Self Reported) Prescription: ferrous sulfate (Self Reported) Prescription: promethazine 25 mg Tab (Self Reported) Prescription: metoprolol tartrate 25 mg Tab (Self Reported) Prescription: ceFAZolin in dextrose (iso-os) (Self Reported) Prescription: HYDROcodone-acetaminophen 5-325 mg Tab (Self Reported) Prescription: ketorolac (Self Reported) Prescription: traMADoL 50 mg Tab (Self Reported) Prescription: atorvastatin (Self Reported) Prescription: HYDROmorphone (Self Reported) Prescription: aspirin (Self Reported) Prescription: lamoTRIgine 100 mg Tab (Self Reported) Prescription: morphine (Self Reported) Prescription: Loratadine-D 10-240 mg Tb24 (Self Reported) Prescription: dilTIAZem 30 mg Tab (Self Reported) Prescription: albuterol HFA (Self Reported) Prescription: budesonide-formoteroL (Self Reported) Prescription: cyclobenzaprine 10 mg Tab (Self Reported) Prescription: predniSONE 20 mg Tab (Self Reported) Prescription: pantoprazole (Self Reported) Prescription: metoprolol tartrate 25 mg Tab (Self Reported) Prescription: ketorolac (Self Reported) Prescription: budesonide-formoteroL (Self Reported) Prescription: HYDROcodone-acetaminophen 5-325 mg Tab (Self Reported) Prescription: sulfamethoxazole-trimethoprim 800-160 mg Tab (Self Reported) Prescription: HYDROcodone-acetaminophen 10-325 mg Tab (Self Reported) Prescription: ibuprofen 600 mg Tab (Self Reported) Prescription: alum-mag hydroxide-simeth (Self Reported) Prescription: Miralax 17 gram Pwpk (Self Reported) Prescription: acetaminophen (Self Reported) Prescription: metroNIDAZOLE 500 mg Tab (Self Reported) Prescription: dextrose 50 % in water (Self Reported) Prescription: aspirin (Self Reported) Prescription: dextrose (Self Reported) Prescription: budesonide-formoteroL 160-4.5 mcg/actuation Hfaa (Self Reported) Prescription: cyanocobalamin (Self Reported) Prescription: morphine (Self Reported) Prescription: HYDROmorphone (Self Reported) Prescription: ketorolac (Self Reported) Prescription: albuterol HFA (Self Reported) Prescription: doxycycline 100 mg Cap (Self Reported) Prescription: fentaNYL (Self Reported) Prescription: cyclobenzaprine 5 mg Tab (Self Reported) Prescription: exenatide 5 mcg/dose (250 mcg/mL) 1.2 mL Pnij (Self Reported) Prescription: fentaNYL (Self Reported) Prescription: metoprolol tartrate 25 mg Tab (Self Reported) Prescription: budesonide-formoteroL (Self Reported) Prescription: HYDROcodone-acetaminophen 5-325 mg Tab (Self Reported) Prescription: sodium chloride (Self Reported) Prescription: dilTIAZem (Self Reported) Prescription: sodium chloride (Self Reported) Prescription: cyclobenzaprine 5 mg Tab (Self Reported) Prescription: sodium chloride (Self Reported) Prescription: ketorolac (Self Reported) Prescription: lactated Ringer's (Self Reported) Prescription: Flonase 50 mcg/actuation Spsn (Self Reported) Prescription: succinylcholine-sod Cl,iso(PF) (Self Reported) Prescription: albuterol HFA 90 mcg/actuation Hfaa (Self Reported) Prescription: dextrose 50% in water (Self Reported) Prescription: sodium chloride (Self Reported) Prescription: medroxyPROGESTERone 10 mg Tab (Self Reported) Prescription: diphenhydrAMINE (Self Reported) Prescription: ProAir HFA 90 mcg/actuation Hfaa (Self Reported) Prescription: insulin lispro 100 unit/mL Soln (Self Reported) Prescription: FOLIC ACID ORAL (Self Reported) Prescription: aspirin (Self Reported) Prescription: ondansetron ODT (Self Reported) Prescription: ACETAMINOPHEN ORAL (Self Reported) Prescription: aspirin (Self Reported) Prescription: aspirin (Self Reported) Prescription: fentaNYL (Self Reported) Prescription: ketorolac (Self Reported) Prescription: no home medications (Self Reported) Prescription: HYDROcodone-acetaminophen 7.5-325 mg Tab (Self Reported) Prescription: acetaminophen (Self Reported) Prescription: glipiZIDE 5 mg Tab (Self Reported) Prescription: diphenhydrAMINE (Self Reported) Prescription: prochlorperazine (Self Reported) Prescription: traMADoL 50 mg Tab (Self Reported) Prescription: sodium chloride (Self Reported) Prescription: albuterol HFA 90 mcg/actuation Hfaa (Self Reported) Prescription: insulin lispro (Self Reported) Prescription: fluticasone propion-salmeteroL (Self Reported) Prescription: nitroglycerin (Self Reported) Prescription: morphine (Self Reported) Prescription: morphine PF (Self Reported) Prescription: pantoprazole 40 mg Tbec (Self Reported) Prescription: propofol 10 mg/mL (Self Reported) Prescription: AMBIEN ORAL (Self Reported) Prescription: insulin glargine (Self Reported) Prescription: ipratropium-albuteroL (Self Reported) Prescription: sodium chloride (Self Reported) Prescription: nitroglycerin (Self Reported) Prescription: acetaminophen 500 mg Tab (Self Reported) Prescription: morphine (Self Reported) Prescription: progesterone 100 mg Cap (Self Reported) Prescription: pyridoxine (Self Reported) Prescription: insulin lispro (Self Reported) Prescription: diazePAM 5 mg Tab (Self Reported) Prescription: ondansetron (Self Reported) Prescription: sulfamethoxazole-trimethoprim 800-160 mg Tab (Self Reported) Prescription: doxycycline 100 mg Cap (Self Reported) Prescription: cyclobenzaprine (Self Reported) Prescription: acetaminophen (Self Reported) Prescription: ketorolac (Self Reported) Prescription: tinidazole 500 mg Tab (Self Reported) Prescription: medroxyPROGESTERone 10 mg Tab (Self Reported) Prescription: HYDROcodone-acetaminophen 5-325 mg Tab (Self Reported) Prescription: LORazepam (Self Reported) Prescription: fentaNYL (Self Reported) Prescription: sodium chloride (Self Reported) Prescription: promethazine (Self Reported) Prescription: ondansetron (Self Reported) Prescription: ondansetron (Self Reported) Prescription: acetaminophen (Self Reported) Prescription: predniSONE 20 mg Tab (Self Reported) Prescription: oxyCODONE-acetaminophen 5-325 mg Tab (Self Reported) Prescription: oxyCODONE-acetaminophen 5-325 mg Tab (Self Reported) Prescription: lansoprazole 30 mg (Self Reported) Prescription: morphine (Self Reported) Prescription: cholecalciferol (Self Reported) Prescription: cholecalciferol (Self Reported) Prescription: lactated Ringer's (Self Reported) Prescription: inhalational spacing device Spcr (Self Reported) Prescription: ipratropium-albuteroL (Self Reported) Prescription: acetaminophen (Self Reported) Prescription: folic acid 400 mcg Tab (Self Reported) Prescription: ondansetron (Self Reported) Prescription: acetaminophen (Self Reported) Prescription: ketorolac (Self Reported) Prescription: diphenhydrAMINE (Self Reported) Prescription: Darvocet-N 100 100-650 mg Tab (Self Reported) Prescription: famotidine (Self Reported) Prescription: ondansetron (Self Reported) Prescription: naproxen (Self Reported) Prescription: carBAMazepine XR 100 mg Tb12 (Self Reported) Prescription: ipratropium-albuteroL (Self Reported) Prescription: pregabalin (Self Reported) Prescription: fluconazole 150 mg Tab (Self Reported) Prescription: famotidine (PF)-NaCl (iso-os) (Self Reported) Prescription: LEXAPRO ORAL (Self Reported) Prescription: KEFLEX ORAL (Self Reported) Prescription: folic acid (Self Reported) Prescription: potassium chloride in D5-0.45%NaCl (Self Reported) Prescription: diphenhydrAMINE (Self Reported) Prescription: ondansetron 8 mg Tab (Self Reported) Prescription: cholecalciferol (Self Reported) Prescription: aspirin (Self Reported) Prescription: insulin lispro (Self Reported) Prescription: ondansetron ODT (Self Reported) Prescription: ibuprofen 800 mg Tab (Self Reported) Prescription: HYDROcodone-acetaminophen (Self Reported) Prescription: promethazine 25 mg Tab (Self Reported) Prescription: pyridoxine 100 mg Tab (Self Reported) Prescription: cyanocobalamin (Self Reported) Prescription: ondansetron 4 mg Tab (Self Reported) Prescription: ondansetron (Self Reported) Prescription: ondansetron ODT (Self Reported) Prescription: traMADoL (Self Reported) Prescription: sodium chloride (Self Reported) Prescription: ibuprofen 800 mg Tab (Self Reported) Prescription: nitroglycerin (Self Reported) Prescription: morphine PF (Self Reported) Prescription: ceFAZolin (ANCEF) 1 gram injection (Self Reported) Prescription: Zofran 4 mg Tab (Self Reported) Prescription: lamoTRIgine 100 mg Tab (Self Reported) Prescription: docusate sodium (Self Reported) Prescription: cyclobenzaprine (Self Reported) Prescription: sodium chloride (Self Reported) Prescription: HYDROmorphone (PF) (Self Reported) Prescription: cyanocobalamin 500 mcg Tab (Self Reported) Prescription: fentaNYL (Self Reported) Prescription: GABAPENTIN ORAL (Self Reported) Prescription: ondansetron (Self Reported) Prescription: acetaminophen-codeine 300-30 mg Tab (Self Reported) Prescription: morphine (Self Reported) Prescription: miconazole 2 % Crea (Self Reported) Prescription: ketorolac (Self Reported) Prescription: budesonide-formoteroL 160-4.5 mcg/actuation Hfaa (Self Reported) Prescription: predniSONE 20 mg Tab (Self Reported) Prescription: morphine (Self Reported) Prescription: traMADoL 50 mg Tab (Self Reported) Prescription: naproxen 250 mg Tab (Self Reported) Prescription: ondansetron 4 mg Tab (Self Reported) Prescription: ketorolac (Self Reported) Prescription: ondansetron (Self Reported) Prescription: Percocet 5-325 mg Tab (Self Reported) Prescription: HYDROmorphone (PF) (Self Reported) Prescription: nitroglycerin (Self Reported) Prescription: Discharge Equipment: Home Supplies (Self Reported) Prescription: cyclobenzaprine 5 mg Tab (Self Reported) Prescription: oxyCODONE 5 mg Cap (Self Reported) Prescription: HYDROcodone-acetaminophen 5-325 mg Tab (Self Reported) Prescription: HYDROmorphone (PF) (Self Reported) Prescription: predniSONE 5 mg Tab (Self Reported) Prescription: exenatide 5 mcg/dose (250 mcg/mL) 1.2 mL Pnij (Self Reported) Prescription: Cholecalciferol (Vitamin D3) 25 mcg (1,000 unit) Cap (Self Reported) Prescription: sucralfate 1 gram Tab (Self Reported) Prescription: morphine (Self Reported) Prescription: acetaminophen (Self Reported) Prescription: oxyCODONE (Self Reported) Prescription: doxycycline 100 mg Tab (Self Reported) Prescription: nitroglycerin (Self Reported) Prescription: cyclobenzaprine (Self Reported) Prescription: morphine 30 mg Tbsr (Self Reported) Prescription: lamoTRIgine 100 mg Tab (Self Reported) Prescription: Discharge Equipment: Insulin Pen [place] (Self Reported) Prescription: oxyCODONE-acetaminophen (Self Reported) Prescription: acetaminophen 500 mg Tab (Self Reported) Prescription: acetaminophen (Self Reported) Prescription: ibuprofen 800 mg Tab (Self Reported) Prescription: enoxaparin (Self Reported) Prescription: insulin lispro (Self Reported) Prescription: dextrose (Self Reported) Prescription: cyclobenzaprine (Self Reported) Prescription: insulin regular (Self Reported) Prescription: cyclobenzaprine 10 mg Tab (Self Reported) Prescription: predniSONE (Self Reported) Prescription: sulfamethoxazole-trimethoprim 800-160 mg Tab (Self Reported) Prescription: IBUPROFEN ORAL (Self Reported) Prescription: morphine (Self Reported) Prescription: fentaNYL (Self Reported) Prescription: [place] 10 mg Tab (Self Reported) Prescription: ferrous sulfate (Self Reported) Prescription: budesonide-formoteroL (Self Reported) Prescription: pyridoxine (Self Reported) Prescription: potassium chloride (Self Reported) Prescription: traMADoL 50 mg Tab (Self Reported) Prescription: ondansetron (Self Reported) Prescription: acetaminophen 500 mg Tab (Self Reported) Prescription: cyclobenzaprine (Self Reported) Prescription: morphine (Self Reported) Prescription: Discharge Equipment: Home Supplies (Self Reported) Prescription: dextrose (Self Reported) Prescription: famotidine (Self Reported) Prescription: albuterol HFA 90 mcg/actuation Hfaa (Self Reported) Prescription: ibuprofen 400 mg Tab (Self Reported) Prescription: nitroglycerin (Self Reported) Prescription: gabapentin 100 mg Cap (Self Reported) Prescription: famotidine (Self Reported) Prescription: oxyCODONE-acetaminophen (Self Reported) Prescription: ondansetron (Self Reported) Prescription: HYDROcodone-acetaminophen 5-325 mg Tab (Self Reported) Prescription: fentaNYL (Self Reported) Prescription: nitrofurantoin (macrocrystal-monohydrate) 100 mg Cap (Self Reported) Prescription: cyclobenzaprine (Self Reported) Prescription: Vicodin 5-500 mg Tab (Self Reported) Prescription: HYDROmorphone (PF) (Self Reported) Prescription: promethazine in NS (Self Reported) Prescription: moxifloxacin 400 mg Tab (Self Reported) Prescription: docusate sodium (Self Reported) Prescription: naproxen 500 mg Tab (Self Reported) Prescription: ferrous sulfate (Self Reported) Prescription: cyclobenzaprine 10 mg Tab (Self Reported) Prescription: CLINT ORAL (Self Reported) Prescription: ketorolac (Self Reported) Prescription: oxyCODONE-acetaminophen (Self Reported) Prescription: hydrocodone-chlorpheniramine 10-8 mg/5 mL Su12 (Self Reported) Prescription: sodium chloride (Self Reported) Prescription: semaglutide 0.25 mg or 0.5 mg(2 mg/1.5 mL) Pnij (Self Reported) Prescription: budesonide-formoteroL (Self Reported) Prescription: LORazepam 0.5 mg Tab (Self Reported) Prescription: insulin glargine (Self Reported) Prescription: lidocaine HCL (Self Reported) Prescription: ondansetron (Self Reported) Prescription: esomeprazole (Self Reported) Prescription: ondansetron (Self Reported) Prescription: ibuprofen 800 mg Tab (Self Reported) Prescription: SYMBICORT INHL (Self Reported) Prescription: sulfamethoxazole-trimethoprim 800-160 mg Tab (Self Reported) Prescription: naproxen (Self Reported) Prescription: midazolam (Self Reported) Prescription: predniSONE 10 mg Tab (Self Reported) Prescription: Symbicort 160-4.5 mcg/actuation Hfaa (Self Reported) Prescription: medroxyPROGESTERone 10 mg Tab (Self Reported) Prescription: ondansetron 4 mg Tab (Self Reported) Prescription: HYDROcodone-acetaminophen 5-325 mg Tab (Self Reported) Prescription: Discharge Equipment: Insulin Pen [place] (Self Reported) Prescription: morphine (Self Reported) Prescription: oxyCODONE-acetaminophen (Self Reported) Prescription: sodium chloride (Self Reported) Prescription: aspirin (Self Reported) Prescription: sodium chloride (Self Reported) Prescription: ondansetron 4 mg Tab (Self Reported) Prescription: pyridoxine (Self Reported) Prescription: diazePAM 5 mg Tab (Self Reported) Prescription: nitrofurantoin (macrocrystal-monohydrate) (Self Reported) Prescription: methylprednisolone sodium (Self Reported) Prescription: pyridoxine (Self Reported) Prescription: topiramate (Self Reported) Prescription: sodium chloride (Self Reported) Prescription: Discharge Equipment: Glucose Test Strips (Self Reported) Prescription: dextrose 50% in water (Self Reported) Prescription: budesonide-formoteroL 160-4.5 mcg/actuation Hfaa (Self Reported) Prescription: sulfamethoxazole-trimethoprim 800-160 mg Tab (Self Reported) Prescription: cyanocobalamin 500 mcg Tab (Self Reported) Prescription: MDUTfumvsuxqd-mievfvzdxoe-ktsjpars-scopoloamine (Self Reported) Prescription: fentaNYL (Self Reported) Prescription: ondansetron (Self Reported) Prescription: albuterol HFA (Self Reported) Prescription: promethazine 25 mg Tab (Self Reported) Prescription: dextrose 5 %-lactated ringers (Self Reported) Prescription: ondansetron ODT (Self Reported) Prescription: morphine (Self Reported) Prescription: pantoprazole (Self Reported) Prescription: budesonide-formoteroL 160-4.5 mcg/actuation Hfaa (Self Reported) Prescription: Ultracet 37.5-325 mg Tab (Self Reported) Prescription: pioglitazone 15 mg Tab (Self Reported) Prescription: diazePAM 5 mg Tab (Self Reported) Prescription: medroxyPROGESTERone 10 mg Tab (Self Reported) Prescription: cholecalciferol 50 mcg (2,000 unit) Cap (Self Reported) Prescription: ondansetron (Self Reported) Prescription: ergocalciferol 1,250 mcg (50,000 unit) Cap (Self Reported) Prescription: metoprolol tartrate 25 mg Tab (Self Reported) Prescription: dextrose 50% in water (Self Reported) Prescription: acetaminophen (Self Reported) Prescription: morphine (Self Reported) Prescription: HYDROcodone-acetaminophen 5-325 mg Tab (Self Reported) Prescription: oxyCODONE-acetaminophen (Self Reported) Prescription: acetaminophen (Self Reported) Prescription: benzonatate 100 mg Cap (Self Reported) Prescription: traMADoL 50 mg Tab (Self Reported) Prescription: esomeprazole (Self Reported) Prescription: ESTRADIOL-PROGESTERONE ORAL (Self Reported) Prescription: medroxyPROGESTERone 10 mg Tab (Self Reported) Prescription: fentaNYL (Self Reported) Prescription: loratadine (Self Reported) Prescription: promethazine 25 mg Tab (Self Reported) Prescription: oxyCODONE-acetaminophen (Self Reported) Prescription: cyanocobalamin 1,000 mcg/mL Soln (Self Reported) Prescription: cholecalciferol 50 mcg (2,000 unit) Cap (Self Reported) Prescription: tamsulosin 0.4 mg Cap (Self Reported) Prescription: aspirin (Self Reported) Prescription: docusate sodium (Self Reported) Prescription: HYDROcodone-acetaminophen 5-325 mg Tab (Self Reported) Prescription: budesonide-formoteroL (Self Reported) Prescription: ondansetron 4 mg Tab (Self Reported) Prescription: famotidine (Self Reported) Prescription: HYDROmorphone (PF) (Self Reported) Prescription: acetaminophen (Self Reported) Prescription: metoprolol tartrate (Self Reported) Prescription: lidocaine PF (Self Reported) Prescription: naproxen 500 mg Tab (Self Reported) Prescription: cyanocobalamin 250 mcg Tab (Self Reported) Prescription: aspirin (Self Reported) Prescription: ondansetron (Self Reported) Prescription: traMADoL 50 mg Tab (Self Reported) Prescription: famotidine 20 mg Tab (Self Reported) Prescription: omeprazole 40 mg Cpdr (Self Reported) Prescription: HYDROmorphone (Self Reported) Prescription: alum-mag hydroxide-simeth (Self Reported) Prescription: lidocaine (Self Reported) Prescription: enoxaparin (Self Reported) Prescription: tamsulosin 0.4 mg Cap (Self Reported) Prescription: loperamide 2 mg Cap (Self Reported) Prescription: sodium chloride (Self Reported) Prescription: budesonide-formoteroL 160-4.5 mcg/actuation Hfaa (Self Reported) Prescription: oxyCODONE-acetaminophen 5-325 mg Tab (Self Reported) Prescription: Vicodin 5-500 mg Tab (Self Reported) Prescription: morphine (Self Reported) Prescription: cephALEXin 500 mg Cap (Self Reported) Prescription: alum-mag hydroxide-simeth (Self Reported) Prescription: oxyCODONE-acetaminophen 5-325 mg Tab (Self Reported) Prescription: sodium chloride (Self Reported) Prescription: OneTouch Delica Lancets 30 gauge Misc (Self Reported) Prescription: ciprofloxacin 500 mg Tab (Self Reported) Prescription: albuterol HFA (Self Reported) Prescription: atorvastatin 40 mg Tab (Self Reported) Prescription: Discharge Equipment: Home Supplies (Self Reported) Prescription: cholecalciferol (Self Reported) Prescription: medroxyPROGESTERone 10 mg Tab (Self Reported) Prescription: HYDROmorphone (Self Reported) Prescription: ferrous sulfate (Self Reported) Prescription: lactated Ringer's (Self Reported) Prescription: sodium chloride (Self Reported) Prescription: ferrous sulfate 325 mg (65 mg iron) [place]bec (Self Reported) Prescription: fentaNYL (Self Reported) Prescription: traMADoL-acetaminophen 37.5-325 mg Tab (Self Reported) Prescription: ncbpnbiqki-iojbblvtihsuc-ohht (Self Reported) Prescription: oxyCODONE-acetaminophen (Self Reported) Prescription: oxyCODONE (Self Reported) Prescription: ondansetron 4 mg Tab (Self Reported) Prescription: Discharge Equipment: Home Supplies (Self Reported) Prescription: Belviq 10 mg Tab (Self Reported) Prescription: pyridoxine 100 mg Tab (Self Reported) Prescription: oxyCODONE-acetaminophen 5-325 mg Tab (Self Reported) Prescription: predniSONE (Self Reported) Prescription: promethazine (Self Reported) Prescription: ibuprofen 200 mg Tab (Self Reported) Prescription: ketorolac (Self Reported) Prescription: cyanocobalamin (Self Reported) Prescription: diazePAM (Self Reported) Prescription: aspirin 81 mg Tbec (Self Reported) Prescription: sodium chloride (Self Reported) Prescription: omeprazole 40 mg Cpdr (Self Reported) Prescription: Discharge Equipment: Home Supplies (Self Reported) Prescription: HYDROcodone-acetaminophen 5-325 mg Tab (Self Reported) Prescription: ondansetron (Self Reported) Prescription: albuterol HFA (Self Reported) Prescription: montelukast 10 mg Tab (Self Reported) Prescription: HYDROmorphone (Self Reported) Prescription: sucralfate (Self Reported) Prescription: famotidine (Self Reported) Prescription: sodium chloride (Self Reported) Prescription: lidocaine (Self Reported) Prescription: cyclobenzaprine (Self Reported) Prescription: oxyCODONE-acetaminophen 5-325 mg Tab (Self Reported) Prescription: nortriptyline 25 mg Cap (Self Reported) Prescription: ipratropium-albuteroL (Self Reported) Prescription: ferrous sulfate (Self Reported) Prescription: HYDROcodone-acetaminophen (Self Reported) Prescription: Keflex 500 mg Cap (Self Reported) Prescription: rimegepant ODT 75 mg Tbdl (Self Reported) Prescription: ALBUTEROL INHL (Self Reported) Prescription: DULoxetine 30 mg Cpdr (Self Reported) Prescription: fentaNYL (Self Reported) Prescription: folic acid (Self Reported) Prescription: ondansetron ODT 4 mg Tbdl (Self Reported) Prescription: iohexoL (Self Reported) Prescription: morphine (Self Reported) Prescription: traMADoL 50 mg Tab (Self Reported) Prescription: AMBIEN ORAL (Self Reported) Prescription: ALBUTEROL INHL (Self Reported) Prescription: sodium chloride (Self Reported) Prescription: morphine (Self Reported) Prescription: ibuprofen 200 mg Tab (Self Reported) Prescription: promethazine in NS (Self Reported) Prescription: Discharge Equipment: Lancets (Self Reported) Prescription: diazePAM (Self Reported) Prescription: insulin glargine 100 unit/mL Soln (Self Reported) Prescription: enoxaparin (Self Reported) Prescription: liraglutide 0.6 mg/0.1 mL (18 mg/3 mL) Pnij (Self Reported) Prescription: acetaminophen (Self Reported) Prescription: acetaminophen (Self Reported) Prescription: sodium chloride (Self Reported) Prescription: HYDROcodone-acetaminophen 5-325 mg Tab (Self Reported) Prescription: insulin lispro (Self Reported) Prescription: Trulicity 0.75 mg/0.5 mL Pnij (Self Reported) Prescription: exenatide 10 mcg/dose(250 mcg/mL) 2.4 mL Pnij (Self Reported) Prescription: cyclobenzaprine 5 mg Tab (Self Reported) Prescription: HYDROcodone-acetaminophen (Self Reported) Prescription: ergocalciferol 1,250 mcg (50,000 unit) Cap (Self Reported) Prescription: midazolam (PF) (Self Reported) Prescription: escitalopram 10 mg Tab (Self Reported) Prescription: ipratropium-albuteroL (Self Reported) Prescription: ondansetron ODT (Self Reported) Prescription: metoprolol tartrate (Self Reported) Prescription: HYDROmorphone (Self Reported) Prescription: pantoprazole (Self Reported) Prescription: divalproex 500 mg Tb24 (Self Reported) Prescription: cephALEXin 500 mg Cap (Self Reported) Prescription: sodium chloride (Self Reported) Prescription: dextrose 50% in water (Self Reported) Prescription: risperiDONE 2 mg Tab (Self Reported) Prescription: tamsulosin 0.4 mg Cap (Self Reported) Prescription: enoxaparin (Self Reported) Prescription: medroxyPROGESTERone 10 mg Tab (Self Reported) Prescription: acetaminophen (Self Reported) Prescription: pyridoxine (Self Reported) Prescription: HYDROcodone-acetaminophen 5-325 mg Tab (Self Reported) Prescription: cyclobenzaprine (Self Reported) Prescription: promethazine 25 mg Tab (Self Reported) Prescription: HYDROmorphone (Self Reported) Prescription: sodium chloride (Self Reported) Prescription: sulfamethoxazole-trimethoprim 800-160 mg Tab (Self Reported) Prescription: traMADoL 50 mg Tab (Self Reported) Prescription: exenatide 5 mcg/dose (250 mcg/mL) 1.2 mL Pnij (Self Reported) Prescription: nitroglycerin (Self Reported) Prescription: diphenhydrAMINE (Self Reported) Prescription: cyclobenzaprine 5 mg Tab (Self Reported) Prescription: oxyCODONE-acetaminophen 5-325 mg Tab (Self Reported) Prescription: alum-mag hydroxide-simeth (Self Reported) Prescription: sodium chloride (Self Reported) Prescription: budesonide-formoteroL (Self Reported) Prescription: pregabalin 100 mg Cap (Self Reported) Prescription: tamsulosin (Self Reported) Prescription: pantoprazole (Self Reported) Prescription: ondansetron (Self Reported) Prescription: nitroglycerin (Self Reported) Prescription: docusate sodium 100 mg Cap (Self Reported) Prescription: famotidine (Self Reported) Prescription: medroxyPROGESTERone 10 mg Tab (Self Reported) Prescription: sodium chloride (Self Reported) Prescription: ALBUTEROL INHALATION (Self Reported) Prescription: oxyCODONE-acetaminophen (Self Reported) Prescription: ondansetron ODT (Self Reported) Prescription: montelukast 10 mg Tab (Self Reported) Prescription: albuterol HFA 90 mcg/actuation Hfaa (Self Reported) Prescription: ibuprofen 200 mg Tab (Self Reported) Prescription: fentaNYL (Self Reported) Prescription: acetaminophen (Self Reported) Prescription: SKELAXIN ORAL (Self Reported) Prescription: sodium chloride (Self Reported) Prescription: diphenhydrAMINE (Self Reported) Prescription: ondansetron (Self Reported) Prescription: predniSONE 20 mg Tab (Self Reported) Prescription: traMADoL 50 mg Tab (Self Reported) Prescription: morphine PF (Self Reported) Prescription: aspirin (Self Reported) Prescription: oxyCODONE-acetaminophen 5-325 mg Tab (Self Reported) Prescription: cyclobenzaprine 10 mg Tab (Self Reported) Prescription: ondansetron 4 mg Tab (Self Reported) Prescription: HYDROcodone-acetaminophen 5-325 mg Tab (Self Reported) Prescription: ondansetron ODT (Self Reported) Prescription: morphine (Self Reported) Prescription: cyclobenzaprine 5 mg Tab (Self Reported) Prescription: cyclobenzaprine 5 mg Tab (Self Reported) Prescription: dextrose 50% in water (Self Reported) Prescription: dexamethasone (Self Reported) Prescription: famotidine 20 mg Tab (Self Reported) Prescription: sulfamethoxazole-trimethoprim 800-160 mg Tab (Self Reported) Prescription: dextrose 50% in water (Self Reported) Prescription: aspirin (Self Reported) Prescription: sodium chloride (Self Reported) Prescription: aspirin (Self Reported) Prescription: ondansetron (Self Reported) Prescription: sodium chloride (Self Reported) Prescription: naproxen 500 mg Tab (Self Reported) Prescription: folic acid (Self Reported) Prescription: morphine (Self Reported) Prescription: topiramate 25 mg Tab (Self Reported) Prescription: aspirin (Self Reported) Prescription: sodium chloride (Self Reported) Prescription: HYDROcodone-acetaminophen (Self Reported) Prescription: LORazepam 0.5 mg Tab (Self Reported) Prescription: traMADoL 50 mg Tab (Self Reported) Prescription: sodium chloride (Self Reported) Prescription: metFORMIN 500 mg Tab (Self Reported) Prescription: furosemide (Self Reported) Prescription: albuterol HFA 90 mcg/actuation Hfaa (Self Reported) Prescription: ondansetron (Self Reported) Prescription: ipratropium-albuteroL (Self Reported) Prescription: omeprazole 20 mg (Self Reported) Prescription: SUMAtriptan (Self Reported) Prescription: sodium chloride (Self Reported) Prescription: ondansetron ODT 4 mg Tbdl (Self Reported) Prescription: nitroglycerin (Self Reported) Prescription: sulfamethoxazole-trimethoprim 800-160 mg Tab (Self Reported) Prescription: ketorolac (Self Reported) Prescription: aspirin (Self Reported) Prescription: morphine (Self Reported) Prescription: dextrose (Self Reported) Prescription: Ambien CR 12.5 mg Tbmp (Self Reported) Prescription: ondansetron 4 mg Tab (Self Reported) Prescription: benzonatate 200 mg Cap (Self Reported) Prescription: oseltamivir 75 mg Cap (Self Reported) Prescription: sodium chloride (Self Reported) Prescription: ketorolac (Self Reported) Prescription: ondansetron 4 mg Tab (Self Reported) Prescription: fentaNYL (Self Reported) Prescription: sodium chloride (Self Reported) Prescription: simvastatin 20 mg Tab (Self Reported) Prescription: oxyCODONE-acetaminophen 5-325 mg Tab (Self Reported) Prescription: diazePAM (Self Reported) Prescription: LYRICA ORAL (Self Reported) Prescription: ketorolac (Self Reported) Prescription: predniSONE 10 mg Tab (Self Reported) Prescription: sodium chloride (Self Reported) Prescription: famotidine 20 mg Tab (Self Reported) Prescription: ondansetron 4 mg Tab (Self Reported) Prescription: lidocaine (Self Reported) Prescription: HYDROcodone-acetaminophen 5-325 mg Tab (Self Reported) Prescription: Darvocet-N 100 100-650 mg Tab (Self Reported) Prescription: dextrose 50% in water (Self Reported) Prescription: ABILIFY ORAL (Self Reported) Prescription: sodium chloride (Self Reported) Prescription: dextrose 50% in water (Self Reported) Prescription: morphine (Self Reported) Prescription: ondansetron 4 mg Tab (Self Reported) Prescription: oxyCODONE-acetaminophen (Self Reported) Prescription: ondansetron (Self Reported) Prescription: aspirin (Self Reported) Prescription: naproxen (Self Reported) Prescription: lamoTRIgine 100 mg Tab (Self Reported) Prescription: lansoprazole (Self Reported) Prescription: eletriptan 40 mg Tab (Self Reported) Prescription: nitrofurantoin (macrocrystal-monohydrate) (Self Reported) Prescription: sucralfate (Self Reported) Prescription: sodium chloride (Self Reported) Prescription: lidocaine PF (Self Reported) Prescription: acetaminophen (Self Reported) Prescription: morphine PF (Self Reported) Prescription: sodium chloride (Self Reported) Prescription: predniSONE (Self Reported) Prescription: ergocalciferol (vitamin D2) 200 mcg/mL (8,000 unit/mL) Drop (Self Reported) Prescription: metoclopramide (Self Reported) Prescription: VITAMIN B-6 ORAL (Self Reported) Prescription: famotidine (Self Reported) Prescription: lisinopriL 5 mg Tab (Self Reported) Prescription: acetaminophen-codeine 120-12 mg/5 mL 120-12 mg/5 mL Elix (Self Reported) Prescription: morphine (Self Reported) Prescription: nitroglycerin (Self Reported) Prescription: ondansetron (Self Reported) Prescription: ondansetron (Self Reported) Prescription: Discharge Equipment: Glucose Monitor (Self Reported) Prescription: morphine (Self Reported) Prescription: folic acid (Self Reported) Prescription: morphine PF (Self Reported) Prescription: medroxyPROGESTERone 10 mg Tab (Self Reported) Prescription: albuterol HFA (Self Reported) Prescription: folic acid (Self Reported) Prescription: morphine in NS (Self Reported) Prescription: sertraline 50 mg Tab (Self Reported) Prescription: morphine (Self Reported) Prescription: famotidine 20 mg Tab (Self Reported) Prescription: morphine (Self Reported) Prescription: metoclopramide (Self Reported) Prescription: aspirin (Self Reported) Prescription: cyclobenzaprine 5 mg Tab (Self Reported) Prescription: ondansetron ODT 4 mg Tbdl (Self Reported) Prescription: Compression Socks, Medium Misc (Self Reported) Prescription: oxyCODONE-acetaminophen (Self Reported) Prescription: naproxen 500 mg Tab (Self Reported) Prescription: sodium chloride (Self Reported) Prescription: HYDROmorphone (PF) (Self Reported) Prescription: traMADoL 50 mg Tab (Self Reported) Prescription: cyanocobalamin 500 mcg Tab (Self Reported) Prescription: rocuronium (Self Reported) Prescription: cholecalciferol (vitamin D3) 10 mcg/5 mL (400 unit/5 mL) Liqd (Self Reported) Prescription: nitroglycerin (Self Reported) Prescription: cyanocobalamin (Self Reported) Prescription: albuterol HFA 90 mcg/actuation Hfaa (Self Reported) Prescription: nortriptyline (Self Reported) Prescription: promethazine 25 mg Tab (Self Reported) Prescription: ALPRAZolam (Self Reported) Prescription: aspirin (Self Reported) Prescription: predniSONE 10 mg Tab (Self Reported) Prescription: sodium chloride (Self Reported) Prescription: dextrose 50% in water (Self Reported) Prescription: cyclobenzaprine (Self Reported) Prescription: FreeStyle Philip 14 Day Sensor Kit (Self Reported) Prescription: ondansetron 4 mg Tab (Self Reported) Prescription: aspirin (Self Reported) Prescription: sodium chloride (Self Reported) Prescription: HYDROcodone-acetaminophen (Self Reported) Prescription: Acetaminophen 650 mg Tbsr (Self Reported) Prescription: lidocaine (Self Reported) Prescription: unknown home medication (Self Reported) Prescription: FOLIC ACID 1 MG ORAL TAB (Self Reported) Prescription: clindamycin 150 mg Cap (Self Reported) Prescription: morphine (Self Reported) Prescription: lactated Ringer's (Self Reported) Prescription: LEXAPRO ORAL (Self Reported) Prescription: benzonatate 100 mg Cap (Self Reported) Prescription: Vitamin B-6 250 mg Tab (Self Reported) Prescription: morphine (Self Reported) Prescription: sulfamethoxazole-trimethoprim (Self Reported) Prescription: ondansetron ODT 8 mg Tbdl (Self Reported) Prescription: Guaifenex PSE 120 120-600 mg Tb12 (Self Reported) Prescription: medroxyPROGESTERone 10 mg Tab (Self Reported) Prescription: nitrofurantoin (macrocrystal-monohydrate) 100 mg Cap (Self Reported) Prescription: docusate sodium (Self Reported) Prescription: Voltaren 1 % Gel gel (Self Reported) Prescription: SODIUM CHLORIDE 0.65 % NASL SPRA (Self Reported) Prescription: promethazine 25 mg Tab (Self Reported) Prescription: clindamycin (Self Reported) Prescription: VICODIN ORAL (Self Reported) Prescription: acetaminophen (Self Reported) Prescription: sodium chloride (Self Reported) Prescription: tamsulosin 0.4 mg Cap (Self Reported) Prescription: metoclopramide (Self Reported) Prescription: HYDROcodone-acetaminophen 5-325 mg Tab (Self Reported) Prescription: SODIUM CHLORIDE 0.9 % IV BOLUS (Self Reported) Prescription: FENTANYL CITRATE (PF) 0.05 MG/ML INJ SOLN (Self Reported) Prescription: sodium chloride (Self Reported) Prescription: ondansetron 4 mg Tab (Self Reported) Prescription: meclizine 25 mg Cap (Self Reported) Prescription: ibuprofen (Self Reported) Prescription: morphine (Self Reported) Prescription: ketorolac (Self Reported) Prescription: NAPROXEN 250 MG ORAL TAB (Self Reported) Prescription: ketorolac (Self Reported) Prescription: cyanocobalamin 250 mcg Tab (Self Reported) Prescription: metoprolol tartrate 25 mg Tab (Self Reported) Prescription: MORPHINE 4 MG/ML IV CRTG (Self Reported) Prescription: cyanocobalamin (Self Reported) Prescription: cholecalciferol (Vitamin D3) 50 mcg (2,000 unit) Tab (Self Reported) Prescription: dextrose (Self Reported) Prescription: HYDROCODONE-ACETAMINOPHEN 5-325 MG ORAL TAB (Self Reported) Prescription: KETOROLAC 30 MG/ML (1 ML) INJ SOLN (Self Reported) Prescription: NAPROXEN 500 MG ORAL TAB (Self Reported) Prescription: SULFAMETHOXAZOLE-TRIMETHOPRIM 800-160 MG ORAL TAB (Self Reported) Prescription: ULTRACET 37.5-325 MG ORAL TAB (Self Reported) Prescription: LIRAGLUTIDE 0.6 MG/0.1 ML (18 MG/3 ML) SUBQ PNIJ (Self Reported) Prescription: DEXTROSE 5 %-LACTATED RINGERS IV SOLP (Self Reported) Prescription: ONDANSETRON HCL (PF) 4 MG/2 ML INJ SOLN (Self Reported) Prescription: enoxaparin (Self Reported) Prescription: ZOLPIDEM 5 MG ORAL TAB (Self Reported) Prescription: ONDANSETRON 4 MG ORAL TBDL (Self Reported) Prescription: ONDANSETRON HCL 4 MG ORAL TAB (Self Reported) Prescription: CYCLOBENZAPRINE 10 MG ORAL TAB (Self Reported) Prescription: FENTANYL CITRATE (PF) 0.05 MG/ML INJ SOLN (Self Reported) Prescription: LANCETS (FOR HOME USE) (Self Reported) Prescription: FAMOTIDINE 20 MG ORAL TAB (Self Reported) Prescription: CYCLOBENZAPRINE 10 MG ORAL TAB (Self Reported) Prescription: ASPIRIN 81 MG ORAL CHEW (Self Reported) Prescription: CHOLECALCIFEROL (VITAMIN D3) 50 MCG (2,000 UNIT) ORAL CAP (Self Reported) Prescription: SODIUM CHLORIDE 0.9 % IV BOLUS (Self Reported) Prescription: HYDROCODONE-ACETAMINOPHEN 5-325 MG ORAL TAB (Self Reported) Prescription: ONDANSETRON HCL 4 MG ORAL TAB (Self Reported) Prescription: acetaminophen (Self Reported) Prescription: ESOMEPRAZOLE MAGNESIUM 20 MG ORAL CPDR (Self Reported) Prescription: MORPHINE 2 MG/ML INJ SYRG (Self Reported) Prescription: NITROGLYCERIN 0.4 MG SL SUBL (Self Reported) Prescription: ONDANSETRON HCL (PF) 4 MG/2 ML INJ SOLN (Self Reported) Prescription: insulin lispro (Self Reported) Prescription: nitroglycerin (Self Reported) Prescription: CLINDAMYCIN HCL 300 MG ORAL CAP (Self Reported) Prescription: oxyCODONE (Self Reported) Prescription: DEXAMETHASONE SODIUM PHOSPHATE 4 MG/ML INJ SOLN (Self Reported) Prescription: PREDNISONE 20 MG ORAL TAB (Self Reported) Prescription: TRAMADOL-ACETAMINOPHEN 37.5-325 MG ORAL TAB (Self Reported) Prescription: MORPHINE INJECTION (Self Reported) Prescription: FAMOTIDINE 20 MG ORAL TAB (Self Reported) Prescription: MORPHINE 4 MG/ML INJ SYRG (Self Reported) Prescription: HYDROMORPHONE 1 MG/ML INJ SYRG (Self Reported) Prescription: KETOROLAC 30 MG/ML (1 ML) INJ SOLN (Self Reported) Prescription: PANTOPRAZOLE 40 MG ORAL TBEC (Self Reported) Prescription: DEXTROSE 50% INJECTION WRAPPER (Self Reported) Prescription: POLYETHYLENE GLYCOL 3350 17 GRAM ORAL PWPK (Self Reported) Prescription: CYCLOBENZAPRINE 5 MG ORAL TAB (Self Reported) Prescription: LIDOCAINE 5 %(700 MG/PATCH) TOP PTMD (Self Reported) Prescription: HYDROCODONE-ACETAMINOPHEN 5-325 MG ORAL TAB (Self Reported) Prescription: HYDROMORPHONE (PF) 2 MG/ML INJ SYRG (Self Reported) Prescription: insulin lispro (Self Reported) Prescription: aspirin (Self Reported) Prescription: METOPROLOL TARTRATE 25 MG ORAL TAB (Self Reported) Prescription: INHALATIONAL SPACING DEVICE MISC SPCR (Self Reported) Prescription: ACETAMINOPHEN 500 MG ORAL TAB (Self Reported) Prescription: FENTANYL CITRATE (PF) 0.05 MG/ML INJ SOLN (Self Reported) Prescription: FAMOTIDINE 20 MG ORAL TAB (Self Reported) Prescription: NORTRIPTYLINE 25 MG ORAL CAP (Self Reported) Prescription: ASPIRIN 81 MG ORAL CHEW (Self Reported) Prescription: LORAZEPAM 0.5 MG ORAL TAB (Self Reported) Prescription: ATORVASTATIN 80 MG ORAL TAB (Self Reported) Prescription: ONDANSETRON HCL (PF) 4 MG/2 ML INJ SOLN (Self Reported) Prescription: SODIUM CHLORIDE 0.9 % IV BOLUS (Self Reported) Prescription: KETOROLAC 30 MG/ML (1 ML) INJ SOLN (Self Reported) Prescription: CYCLOBENZAPRINE 10 MG ORAL TAB (Self Reported) Prescription: HYDROCODONE-ACETAMINOPHEN 5-325 MG ORAL TAB (Self Reported) Prescription: ZOLPIDEM 5 MG ORAL TAB (Self Reported) Prescription: OXYCODONE-ACETAMINOPHEN 5-325 MG ORAL TAB (Self Reported) Prescription: MORPHINE INJECTION (Self Reported) Prescription: TRAMADOL 50 MG ORAL TAB (Self Reported) Prescription: TRAMADOL 50 MG ORAL TAB (Self Reported) Prescription: OXYCODONE-ACETAMINOPHEN 5-325 MG ORAL TAB (Self Reported) Prescription: BUDESONIDE-FORMOTEROL 160-4.5 MCG/ACTUATION INHL HFAA (Self Reported) Prescription: CYANOCOBALAMIN (VITAMIN B-12) 1,000 MCG ORAL TAB (Self Reported) Prescription: DIPHENHYDRAMINE HCL 25 MG ORAL TAB (Self Reported) Prescription: MORPHINE INJECTION (Self Reported) Prescription: ONDANSETRON HCL (PF) 4 MG/2 ML INJ SOLN (Self Reported) Prescription: CYCLOBENZAPRINE 10 MG ORAL TAB (Self Reported) Prescription: KETOROLAC 30 MG/ML (1 ML) INJ SOLN (Self Reported) Prescription: ESOMEPRAZOLE MAGNESIUM 20 MG ORAL CPDR (Self Reported) Prescription: KETOROLAC 15 MG/ML INJ SOLN (Self Reported) Prescription: ASPIRIN 81 MG ORAL CHEW (Self Reported) Prescription: MEDROXYPROGESTERONE 10 MG ORAL TAB (Self Reported) Prescription: CYCLOBENZAPRINE 5 MG ORAL TAB (Self Reported) Prescription: FENTANYL CITRATE (PF) 0.05 MG/ML INJ SOLN (Self Reported) Prescription: ONDANSETRON HCL 4 MG/5 ML ORAL SOLN (Self Reported) Prescription: INSULIN LISPRO (HUMAN) SENSITIVITY FACTOR (Self Reported) Prescription: SODIUM CHLORIDE 0.9 % IV BOLUS (Self Reported) Prescription: MISCELLANEOUS HOME SUPPLIES AND EQUIPMENT (FOR HOME USE) (Self Reported) Prescription: NITROGLYCERIN 0.4 MG SL SUBL (Self Reported) Prescription: LOPERAMIDE 2 MG ORAL CAP (Self Reported) Prescription: OMEPRAZOLE 40 MG ORAL CPDR (Self Reported) Prescription: ERGOCALCIFEROL (VITAMIN D2) 1,250 MCG (50,000 UNIT) ORAL CAP (Self Reported) Prescription: ACETAMINOPHEN 325 MG ORAL TAB (Self Reported) Prescription: NAPROXEN 500 MG ORAL TAB (Self Reported) Prescription: METOPROLOL TARTRATE 25 MG ORAL TAB (Self Reported) Prescription: SUMATRIPTAN SUCCINATE 25 MG ORAL TAB (Self Reported) Prescription: ASPIRIN 81 MG ORAL CHEW (Self Reported) Prescription: ASPIRIN 81 MG ORAL CHEW (Self Reported) Prescription: OXYCODONE-ACETAMINOPHEN 5-325 MG ORAL TAB (Self Reported) Prescription: DOCUSATE SODIUM 100 MG ORAL CAP (Self Reported) Prescription: FENTANYL CITRATE (PF) 0.05 MG/ML INJ SOLN (Self Reported) Prescription: TRAMADOL 50 MG ORAL TAB (Self Reported) Prescription: RIZATRIPTAN 10 MG ORAL TAB (Self Reported) Prescription: PROPOFOL BOLUS (Self Reported) Prescription: METRONIDAZOLE 500 MG ORAL TAB (Self Reported) Prescription: CYCLOBENZAPRINE 10 MG ORAL TAB (Self Reported) Prescription: ONDANSETRON HCL (PF) 4 MG/2 ML INJ SOLN (Self Reported) Prescription: SULFAMETHOXAZOLE-TRIMETHOPRIM 800-160 MG ORAL TAB (Self Reported) Prescription: HYDROCODONE-ACETAMINOPHEN 5-325 MG ORAL TAB (Self Reported) Prescription: PYRIDOXINE (VITAMIN B6) 50 MG ORAL TAB (Self Reported) Prescription: CEPHALEXIN 500 MG ORAL CAP (Self Reported) Prescription: HYDROCODONE-ACETAMINOPHEN 5-325 MG ORAL TAB (Self Reported) Prescription: SODIUM CHLORIDE 0.9 % IV BOLUS (Self Reported) Prescription: OSELTAMIVIR 75 MG ORAL CAP (Self Reported) Prescription: MORPHINE 4 MG/ML INJ SYRG (Self Reported) Prescription: LACTATED RINGERS IV BOLUS (Self Reported) Prescription: MORPHINE 4 MG/ML INJ SYRG (Self Reported) Prescription: MEDROXYPROGESTERONE 10 MG ORAL TAB (Self Reported) Prescription: PREGABALIN 100 MG ORAL CAP (Self Reported) Prescription: ASPIRIN 81 MG ORAL CHEW (Self Reported) Prescription: PREGABALIN 50 MG ORAL CAP (Self Reported) Prescription: FERROUS SULFATE 325 MG (65 MG IRON) ORAL TBEC (Self Reported) Prescription: FOLIC ACID 1 MG ORAL TAB (Self Reported) Prescription: INSULIN LISPRO (HUMAN) SENSITIVITY FACTOR (Self Reported) Prescription: BUDESONIDE-FORMOTEROL 160-4.5 MCG/ACTUATION INHL HFAA (Self Reported) Prescription: ONDANSETRON HCL (PF) 4 MG/2 ML INJ SOLN (Self Reported) Prescription: METOCLOPRAMIDE HCL 5 MG/ML INJ SOLN (Self Reported) Prescription: SODIUM CHLORIDE 0.9 % INJ SYRG (Self Reported) Prescription: FENTANYL CITRATE (PF) 0.05 MG/ML INJ SOLN (Self Reported) Prescription: MORPHINE 4 MG/ML INJ SYRG (Self Reported) Prescription: ONDANSETRON HCL (PF) 4 MG/2 ML INJ SOLN (Self Reported) Prescription: IPRATROPIUM-ALBUTEROL 0.5 MG-3 MG(2.5 MG BASE)/3 ML INHL NEBU (Self Reported) Prescription: SODIUM CHLORIDE 0.9 % IV BOLUS (Self Reported) Prescription: SULFAMETHOXAZOLE-TRIMETHOPRIM 800-160 MG ORAL TAB (Self Reported) Prescription: DIPHENHYDRAMINE HCL 25 MG ORAL TAB (Self Reported) Prescription: ZOLPIDEM 5 MG ORAL TAB (Self Reported) Prescription: SODIUM CHLORIDE 0.9 % INJ SYRG (Self Reported) Prescription: ACETAMINOPHEN 325 MG ORAL TAB (Self Reported) Prescription: CYANOCOBALAMIN (VITAMIN B-12) 1,000 MCG ORAL TAB (Self Reported) Prescription: KETOROLAC 30 MG/ML (1 ML) INJ SOLN (Self Reported) Prescription: INSULIN GLARGINE 100 UNIT/ML SUBQ SOLN (Self Reported) Prescription: HYDROMORPHONE 1 MG/ML INJ SYRG (Self Reported) Prescription: ROCURONIUM 10 MG/ML IV SOLN (Self Reported) Prescription: ENOXAPARIN 40 MG/0.4 ML SUBQ SYRG (Self Reported) Prescription: ALPRAZOLAM 0.25 MG ORAL TAB (Self Reported) Prescription: FOLIC ACID 1 MG ORAL TAB (Self Reported) Prescription: ESOMEPRAZOLE MAGNESIUM 20 MG ORAL CPDR (Self Reported) Prescription: OXYCODONE-ACETAMINOPHEN 5-325 MG ORAL TAB (Self Reported) Prescription: FENTANYL CITRATE (PF) 0.05 MG/ML INJ SOLN (Self Reported) Prescription: KETOROLAC 30 MG/ML (1 ML) INJ SOLN (Self Reported) Prescription: CYCLOBENZAPRINE 5 MG ORAL TAB (Self Reported) Prescription: HYDROCODONE-ACETAMINOPHEN 5-325 MG ORAL TAB (Self Reported) Prescription: [id number] 50-325-40 MG ORAL TAB (Self Reported) Prescription: EXENATIDE 5 MCG/0.02 ML SUBQ PNIJ (Self Reported) Prescription: [id number] 50-325-40 MG ORAL TAB (Self Reported) Prescription: DEXTROSE 50% INJECTION WRAPPER (Self Reported) Prescription: RESPIRATORY EQUIPMENT (FOR HOME USE) (Self Reported) Prescription: MORPHINE 4 MG/ML INJ SYRG (Self Reported) Prescription: INSULIN LISPRO 100 UNIT/ML SUBQ SOLN (Self Reported) Prescription: IBUPROFEN 800 MG ORAL TAB (Self Reported) Prescription: OXYCODONE 5 MG ORAL TAB (Self Reported) Prescription: FAMOTIDINE 20 MG ORAL TAB (Self Reported) Prescription: DIAZEPAM 5 MG ORAL TAB (Self Reported) Prescription: ACETAMINOPHEN 325 MG ORAL TAB (Self Reported) Prescription: KETOROLAC 30 MG/ML (1 ML) INJ SOLN (Self Reported) Prescription: DIAZEPAM 5 MG ORAL TAB (Self Reported) Prescription: CEPHALEXIN 500 MG ORAL CAP (Self Reported) Prescription: FAMOTIDINE 20 MG ORAL TAB (Self Reported) Prescription: CYCLOBENZAPRINE 5 MG ORAL TAB (Self Reported) Prescription: IOHEXOL 300 MG IODINE/ML IV SOLN (Self Reported) Prescription: SERTRALINE 50 MG ORAL TAB (Self Reported) Prescription: DEXTROSE 50% INJECTION WRAPPER (Self Reported) Prescription: SODIUM CHLORIDE 0.9 % IV BOLUS (Self Reported) Prescription: HYDROMORPHONE 1 MG/ML INJ SYRG (Self Reported) Prescription: NORTRIPTYLINE 25 MG ORAL CAP (Self Reported) Prescription: ALBUTEROL SULFATE 90 MCG/ACTUATION INHL HFAA (Self Reported) Prescription: OXYCODONE-ACETAMINOPHEN 5-325 MG ORAL TAB (Self Reported) Prescription: TAMSULOSIN 0.4 MG ORAL CAP (Self Reported) Prescription: OXYCODONE-ACETAMINOPHEN 5-325 MG ORAL TAB (Self Reported) Prescription: DEXTROSE 50% INJECTION WRAPPER (Self Reported) Prescription: HYDROCODONE-ACETAMINOPHEN 5-325 MG ORAL TAB (Self Reported) Prescription: ONDANSETRON HCL 4 MG ORAL TAB (Self Reported) Prescription: CYCLOBENZAPRINE 5 MG ORAL TAB (Self Reported) Prescription: GABAPENTIN 100 MG ORAL CAP (Self Reported) Prescription: ACETAMINOPHEN 325 MG ORAL TAB (Self Reported) Prescription: SULFUR HEXAFLUORIDE MICROSPHR 25 MG IV SUSR (Self Reported) Prescription: DOCUSATE SODIUM 100 MG ORAL CAP (Self Reported) Prescription: OMEPRAZOLE 40 MG ORAL CPDR (Self Reported) Prescription: KETOROLAC 15 MG/ML INJ SOLN (Self Reported) Prescription: SUCRALFATE 1 GRAM ORAL TAB (Self Reported) Prescription: SODIUM CHLORIDE 0.9 % INJ SYRG (Self Reported) Prescription: OXYCODONE-ACETAMINOPHEN 5-325 MG ORAL TAB (Self Reported) Prescription: KETOROLAC 30 MG/ML (1 ML) INJ SOLN (Self Reported) Prescription: MORPHINE 4 MG/ML INJ SYRG (Self Reported) Prescription: ASPIRIN 81 MG ORAL CHEW (Self Reported) Prescription: MORPHINE 4 MG/ML INJ SYRG (Self Reported) Prescription: FOLIC ACID 1 MG ORAL TAB (Self Reported) Prescription: GLUCOSE TEST STRIPS (FOR HOME USE) (Self Reported) Prescription: SODIUM CHLORIDE 0.9 % IV BOLUS (Self Reported) Prescription: POTASSIUM [id number]%NACL 20 MEQ/L IV SOLP (Self Reported) Prescription: MORPHINE INJECTION (Self Reported) Prescription: ALBUTEROL SULFATE 90 MCG/ACTUATION INHL HFAA (Self Reported) Prescription: BUDESONIDE-FORMOTEROL 160-4.5 MCG/ACTUATION INHL HFAA (Self Reported) Prescription: ENOXAPARIN 40 MG/0.4 ML SUBQ SYRG (Self Reported) Prescription: PROMETHAZINE 25 MG ORAL TAB (Self Reported) Prescription: MICONAZOLE NITRATE 2 % VAGL CREA (Self Reported) Prescription: KETOROLAC 15 MG/ML INJ SOLN (Self Reported) Prescription: ALBUTEROL SULFATE 90 MCG/ACTUATION INHL HFAA (Self Reported) Prescription: ERGOCALCIFEROL (VITAMIN D2) 1,250 MCG (50,000 UNIT) ORAL CAP (Self Reported) Prescription: DOCUSATE SODIUM 100 MG ORAL CAP (Self Reported) Prescription: OXYCODONE-ACETAMINOPHEN 5-325 MG ORAL TAB (Self Reported) Prescription: CARBAMAZEPINE 100 MG ORAL TB12 (Self Reported) Prescription: MORPHINE 2 MG/ML INJ SYRG (Self Reported) Prescription: ONDANSETRON HCL (PF) 4 MG/2 ML INJ SOLN (Self Reported) Prescription: PREDNISONE 20 MG ORAL TAB (Self Reported) Prescription: BUDESONIDE-FORMOTEROL 160-4.5 MCG/ACTUATION INHL HFAA (Self Reported) Prescription: CHOLECALCIFEROL (VITAMIN D3) 25 MCG (1,000 UNIT) ORAL TAB (Self Reported) Prescription: NAPROXEN 500 MG ORAL TAB (Self Reported) Prescription: PANTOPRAZOLE 40 MG ORAL TBEC (Self Reported) Prescription: OXYCODONE 5 MG ORAL TAB (Self Reported) Prescription: MIDAZOLAM 1 MG/ML INJ SOLN (Self Reported) Prescription: MEDROXYPROGESTERONE 10 MG ORAL TAB (Self Reported) Prescription: BUDESONIDE-FORMOTEROL 160-4.5 MCG/ACTUATION INHL HFAA (Self Reported) Prescription: ALUM-MAG HYDROXIDE-SIMETH 400-400-40 MG/5 ML ORAL SUSP (Self Reported) Prescription: ALBUTEROL SULFATE 90 MCG/ACTUATION INHL HFAA (Self Reported) Prescription: METOPROLOL TARTRATE 25 MG ORAL TAB (Self Reported) Prescription: SODIUM CHLORIDE 0.9 % IV BOLUS (Self Reported) Prescription: HYDROCODONE-ACETAMINOPHEN 5-325 MG ORAL TAB (Self Reported) Prescription: DARVOCET-N 100 100-650 MG ORAL TAB (Self Reported) Prescription: ALBUTEROL SULFATE 90 MCG/ACTUATION INHL HFAA (Self Reported) Prescription: HYDROMORPHONE 1 MG/ML INJ SYRG (Self Reported) Prescription: PYRIDOXINE (VITAMIN B6) 50 MG ORAL TAB (Self Reported) Prescription: HYDROMORPHONE 1 MG/ML INJ SYRG (Self Reported) Prescription: SODIUM CHLORIDE 0.9 % INJ SYRG (Self Reported) Prescription: NITROGLYCERIN 0.4 MG SL SUBL (Self Reported) Prescription: ONDANSETRON 4 MG ORAL TBDL (Self Reported) Prescription: ONDANSETRON HCL 4 MG ORAL TAB (Self Reported) Prescription: SODIUM CHLORIDE 0.9 % IV SOLP (Self Reported) Prescription: CHOLECALCIFEROL (VITAMIN D3) 25 MCG (1,000 UNIT) ORAL TAB (Self Reported) Prescription: ALBUTEROL SULFATE 90 MCG/ACTUATION INHL HFAA (Self Reported) Prescription: NITROGLYCERIN 0.4 MG SL SUBL (Self Reported) Prescription: PREDNISONE 20 MG ORAL TAB (Self Reported) Prescription: ENOXAPARIN 40 MG/0.4 ML SUBQ SYRG (Self Reported) Prescription: DIPHENHYDRAMINE HCL 50 MG/ML INJ SOLN (Self Reported) Prescription: ONDANSETRON 4 MG ORAL TBDL (Self Reported) Prescription: OXYCODONE-ACETAMINOPHEN 5-325 MG ORAL TAB (Self Reported) Prescription: OXYCODONE-ACETAMINOPHEN 5-325 MG ORAL TAB (Self Reported) Prescription: ALBUTEROL SULFATE 90 MCG/ACTUATION INHL HFAA (Self Reported) Prescription: ONDANSETRON HCL (PF) 4 MG/2 ML INJ SOLN (Self Reported) Prescription: SODIUM CHLORIDE 0.9 % IV SOLP (Self Reported) Prescription: PROMETHAZINE 25 MG ORAL TAB (Self Reported) Prescription: LIDOCAINE HCL 2 % MM SOLN (Self Reported) Prescription: HYDROCODONE-ACETAMINOPHEN 5-325 MG ORAL TAB (Self Reported) Prescription: MIDAZOLAM 1 MG/ML INJ SOLN (Self Reported) Prescription: BUDESONIDE-FORMOTEROL 160-4.5 MCG/ACTUATION INHL HFAA (Self Reported) Prescription: OXYCODONE-ACETAMINOPHEN 5-325 MG ORAL TAB (Self Reported) Prescription: HYDROCODONE-ACETAMINOPHEN 5-325 MG ORAL TAB (Self Reported) Prescription: CYCLOBENZAPRINE 10 MG ORAL TAB (Self Reported) Prescription: NAPROXEN 250 MG ORAL TAB (Self Reported) Prescription: IBUPROFEN 800 MG ORAL TAB (Self Reported) Prescription: CHOLECALCIFEROL (VITAMIN D3) 25 MCG (1,000 UNIT) ORAL TAB (Self Reported) Prescription: MORPHINE 4 MG/ML INJ SYRG (Self Reported) Prescription: MORPHINE 4 MG/ML IV CRTG (Self Reported) Prescription: ONDANSETRON HCL (PF) 4 MG/2 ML INJ SOLN (Self Reported) Prescription: DEXTROSE 50% INJECTION WRAPPER (Self Reported) Prescription: MORPHINE INJECTION (Self Reported) Prescription: SYMBICORT 160-4.5 MCG/ACTUATION INHL HFAA (Self Reported) Prescription: ONDANSETRON HCL (PF) 4 MG/2 ML INJ SOLN (Self Reported) Prescription: OXYCODONE-ACETAMINOPHEN 5-325 MG ORAL TAB (Self Reported) Prescription: SULFAMETHOXAZOLE-TRIMETHOPRIM 800-160 MG ORAL TAB (Self Reported) Prescription: LACTATED RINGERS IV SOLP (Self Reported) Prescription: PREGABALIN 25 MG ORAL CAP (Self Reported) Prescription: INSULIN PEN NEEDLES (FOR HOME USE) (Self Reported) Prescription: KETOROLAC 30 MG/ML (1 ML) INJ SOLN (Self Reported) Prescription: SODIUM CHLORIDE 0.9 % IV BOLUS (Self Reported) Prescription: ASPIRIN 81 MG ORAL CHEW (Self Reported) Prescription: OXYCODONE-ACETAMINOPHEN 5-325 MG ORAL TAB (Self Reported) Prescription: MEDROXYPROGESTERONE 10 MG ORAL TAB (Self Reported) Prescription: TRAMADOL 50 MG ORAL TAB (Self Reported) Prescription: OMEPRAZOLE 20 MG ORAL CPDR (Self Reported) Prescription: OXYCODONE-ACETAMINOPHEN 5-325 MG ORAL TAB (Self Reported) Prescription: SODIUM CHLORIDE 0.9 % IV BOLUS (Self Reported) Prescription: DEXTROSE 50% INJECTION WRAPPER (Self Reported) Prescription: METRONIDAZOLE 0.75 % VAGL GEL (Self Reported) Prescription: MONTELUKAST 10 MG ORAL TAB (Self Reported) Prescription: OMEPRAZOLE 40 MG ORAL CPDR (Self Reported) Prescription: DEXTROSE 40 % ORAL GEL (Self Reported) Prescription: GUAIFENEX PSE 120 120-600 MG ORAL TB12 (Self Reported) Prescription: VICODIN 5-500 MG ORAL TAB (Self Reported) Prescription: INSULIN PEN NEEDLES (FOR HOME USE) (Self Reported) Prescription: IBUPROFEN 800 MG ORAL TAB (Self Reported) Prescription: FOLIC ACID 1 MG ORAL TAB (Self Reported) Prescription: FOLIC ACID 400 MCG ORAL TAB (Self Reported) Prescription: MORPHINE 4 MG/ML INJ SYRG (Self Reported) Prescription: LACTATED RINGERS IV BOLUS (Self Reported) Prescription: MORPHINE 2 MG/ML INJ SYRG (Self Reported) Prescription: FENTANYL CITRATE (PF) 0.05 MG/ML INJ SOLN (Self Reported) Prescription: TRAMADOL 50 MG ORAL TAB (Self Reported) Prescription: MORPHINE 2 MG/ML INJ SYRG (Self Reported) Prescription: CYANOCOBALAMIN (VITAMIN B-12) 1,000 MCG/ML INJ SOLN (Self Reported) Prescription: ACETAMINOPHEN 500 MG ORAL TAB (Self Reported) Prescription: ONDANSETRON HCL 4 MG ORAL TAB (Self Reported) Prescription: SODIUM CHLORIDE 0.9 % IV BOLUS (Self Reported) Prescription: ALBUTEROL SULFATE 90 MCG/ACTUATION INHL HFAA (Self Reported) Prescription: ONDANSETRON HCL 4 MG ORAL TAB (Self Reported) Prescription: SULFAMETHOXAZOLE-TRIMETHOPRIM 800-160 MG ORAL TAB (Self Reported) Prescription: OXYCODONE-ACETAMINOPHEN 5-325 MG ORAL TAB (Self Reported) Prescription: FERROUS SULFATE 325 MG (65 MG IRON) ORAL TAB (Self Reported) Prescription: SODIUM CHLORIDE 0.9 % IV BOLUS (Self Reported) Prescription: MISCELLANEOUS HOME SUPPLIES AND EQUIPMENT (FOR HOME USE) (Self Reported) Prescription: MORPHINE 4 MG/ML INJ SYRG (Self Reported) Prescription: LANSOPRAZOLE 30 MG ORAL TBLD (Self Reported) Prescription: ENOXAPARIN 150 MG/ML SUBQ SYRG (Self Reported) Prescription: KETOROLAC 10 MG ORAL TAB (Self Reported) Prescription: ALUM-MAG HYDROXIDE-SIMETH 400-400-40 MG/5 ML ORAL SUSP (Self Reported) Prescription: ONDANSETRON HCL 4 MG ORAL TAB (Self Reported) Prescription: ASPIRIN 81 MG ORAL CHEW (Self Reported) Prescription: DILTIAZEM HCL 30 MG ORAL TAB (Self Reported) Prescription: OXYCODONE-ACETAMINOPHEN 5-325 MG ORAL TAB (Self Reported) Prescription: BUDESONIDE-FORMOTEROL 160-4.5 MCG/ACTUATION INHL HFAA (Self Reported) Prescription: ACETAMINOPHEN 325 MG ORAL TAB (Self Reported) Prescription: PREDNISONE 10 MG ORAL TAB (Self Reported) Prescription: ACETAMINOPHEN 325 MG ORAL TAB (Self Reported) Prescription: CYANOCOBALAMIN (VITAMIN B-12) 1,000 MCG ORAL TAB (Self Reported) Prescription: FENTANYL CITRATE (PF) 0.05 MG/ML INJ SOLN (Self Reported) Prescription: TOPIRAMATE 25 MG ORAL TAB (Self Reported) Prescription: IPRATROPIUM-ALBUTEROL 0.5 MG-3 MG(2.5 MG BASE)/3 ML INHL NEBU (Self Reported) Prescription: ONDANSETRON HCL (PF) 4 MG/2 ML INJ SOLN (Self Reported) Prescription: ACETAMINOPHEN 325 MG ORAL TAB (Self Reported) Prescription: LIDOCAINE (PF) 10 MG/ML (1 %) INJ SOLN (Self Reported) Prescription: NITROGLYCERIN 0.4 MG SL SUBL (Self Reported) Prescription: SIMVASTATIN 20 MG ORAL TAB (Self Reported) Prescription: ONDANSETRON 4 MG ORAL TBDL (Self Reported) Prescription: MORPHINE INJECTION (Self Reported) Prescription: DIAZEPAM 5 MG ORAL TAB (Self Reported) Prescription: IPRATROPIUM-ALBUTEROL 0.5 MG-3 MG(2.5 MG BASE)/3 ML INHL NEBU (Self Reported) Prescription: HYDROMORPHONE (PF) 2 MG/ML INJ SYRG (Self Reported) Prescription: LIDOCAINE HCL 2 % MM JELP (Self Reported) Prescription: HYDROCODONE-ACETAMINOPHEN 5-325 MG ORAL TAB (Self Reported) Prescription: NORTRIPTYLINE 25 MG ORAL CAP (Self Reported) Prescription: HYDROCODONE-ACETAMINOPHEN 5-325 MG ORAL TAB (Self Reported) Prescription: INSULIN GLARGINE 100 UNIT/ML SUBQ SOLN (Self Reported) Prescription: IBUPROFEN 800 MG ORAL TAB (Self Reported) Prescription: MOXIFLOXACIN 400 MG ORAL TAB (Self Reported) Prescription: NITROGLYCERIN 0.4 MG SL SUBL (Self Reported) Prescription: ONDANSETRON HCL (PF) 4 MG/2 ML INJ SOLN (Self Reported) Prescription: PANTOPRAZOLE 40 MG ORAL TBEC (Self Reported) Prescription: CHOLECALCIFEROL (VITAMIN D3) 25 MCG (1,000 UNIT) ORAL TAB (Self Reported) Prescription: MORPHINE 2 MG/ML INJECTION WRAPPER (Self Reported) Prescription: HYDROCODONE-ACETAMINOPHEN 5-325 MG ORAL TAB (Self Reported) Prescription: SODIUM CHLORIDE 3 % INHL NEBU (Self Reported) Prescription: VOLTAREN 1 % TOP GEL (Self Reported) Prescription: MORPHINE 4 MG/ML INJ SYRG (Self Reported) Prescription: DIPHENHYDRAMINE HCL 50 MG/ML INJ SOLN (Self Reported) Prescription: MORPHINE 4 MG/ML INJ SYRG (Self Reported) Prescription: HYDROCODONE-ACETAMINOPHEN 5-325 MG ORAL TAB (Self Reported) Prescription: LACTATED RINGERS IV BOLUS (Self Reported) Prescription: NITROGLYCERIN 0.4 MG SL SUBL (Self Reported) Prescription: MIDAZOLAM (PF) 1 MG/ML INJ SOLN (Self Reported) Prescription: ERGOCALCIFEROL (VITAMIN D2) 200 MCG/ML (8,000 UNIT/ML) ORAL DROP (Self Reported) Prescription: ONDANSETRON HCL 4 MG ORAL TAB (Self Reported) Prescription: ASPIRIN 81 MG ORAL CHEW (Self Reported) Prescription: VICODIN 5-500 MG ORAL TAB (Self Reported) Prescription: MORPHINE 4 MG/ML IV CRTG (Self Reported) Prescription: ONETOUCH ULTRA TEST MISC STRP (Self Reported) Prescription: PROMETHAZINE 25 MG ORAL TAB (Self Reported) Prescription: MORPHINE IN 0.9 % SODIUM CHLOR 2 MG/ML (1 ML) IV SYRG (Self Reported) Prescription: CYANOCOBALAMIN (VITAMIN B-12) 500 MCG ORAL TAB (Self Reported) Prescription: CARBAMAZEPINE 100 MG ORAL TB12 (Self Reported) Prescription: LORATADINE-D 10-240 MG ORAL TB24 (Self Reported) Prescription: ASPIRIN 81 MG ORAL CHEW (Self Reported) Prescription: LORATADINE 10 MG ORAL TAB (Self Reported) Prescription: DEXTROSE 40 % ORAL GEL (Self Reported) Prescription: HYDROMORPHONE (PF) 0.5 MG/0.5 ML INJ SYRG (Self Reported) Prescription: OXYCODONE-ACETAMINOPHEN 5-325 MG ORAL TAB (Self Reported) Prescription: IBUPROFEN 800 MG ORAL TAB (Self Reported) Prescription: HYDROCODONE-ACETAMINOPHEN 7.5-325 MG ORAL TAB (Self Reported) Prescription: MONTELUKAST 10 MG ORAL TAB (Self Reported) Prescription: ALBUTEROL SULFATE 90 MCG/ACTUATION INHL HFAA (Self Reported) Prescription: ASPIRIN 81 MG ORAL CHEW (Self Reported) Prescription: METHYLPREDNISOLONE SODIUM SUCC 125 MG/2 ML INJ SOLR (Self Reported) Prescription: DIAZEPAM 2 MG ORAL TAB (Self Reported) Prescription: MEDROXYPROGESTERONE 10 MG ORAL TAB (Self Reported) Prescription: POLYETHYLENE GLYCOL 3350 17 GRAM ORAL PWPK (Self Reported) Prescription: PREDNISONE 20 MG ORAL TAB (Self Reported) Prescription: ONDANSETRON HCL 4 MG ORAL TAB (Self Reported) Prescription: ONDANSETRON 4 MG ORAL TBDL (Self Reported) Prescription: CYANOCOBALAMIN (VITAMIN B-12) 1,000 MCG/ML INJ SOLN (Self Reported) Prescription: DOCUSATE SODIUM 100 MG ORAL CAP (Self Reported) Prescription: OXYCODONE 5 MG ORAL TAB (Self Reported) Prescription: DOXYCYCLINE HYCLATE 100 MG ORAL CAP (Self Reported) Prescription: DARVOCET-N 100 100-650 MG ORAL TAB (Self Reported) Prescription: ONDANSETRON HCL 4 MG ORAL TAB (Self Reported) Prescription: PANTOPRAZOLE 40 MG ORAL TBEC (Self Reported) Prescription: OXYCODONE-ACETAMINOPHEN 5-325 MG ORAL TAB (Self Reported) Prescription: ONDANSETRON HCL (PF) 4 MG/2 ML INJ SOLN (Self Reported) Prescription: CYANOCOBALAMIN (VITAMIN B-12) 1,000 MCG ORAL TAB (Self Reported) Prescription: POTASSIUM CHLORIDE 20 MEQ ORAL TBTQ (Self Reported) Prescription: NITROGLYCERIN 0.4 MG SL SUBL (Self Reported) Prescription: LIDOCAINE HCL 2 % MM SOLN (Self Reported) Prescription: MEDROXYPROGESTERONE 10 MG ORAL TAB (Self Reported) Prescription: CHOLECALCIFEROL (VITAMIN D3) 10 MCG/5 ML (400 UNIT/5 ML) ORAL LIQD (Self Reported) Prescription: GABAPENTIN 100 MG ORAL CAP (Self Reported) Prescription: ALBUTEROL SULFATE 90 MCG/ACTUATION INHL HFAA (Self Reported) Prescription: SODIUM CHLORIDE 0.9 % INJ SYRG (Self Reported) Prescription: HYDROCODONE-ACETAMINOPHEN 10-325 MG ORAL TAB (Self Reported) Prescription: SODIUM CHLORIDE 0.9 % IV BOLUS (Self Reported) Prescription: ONDANSETRON HCL (PF) 4 MG/2 ML INJ SOLN (Self Reported) Prescription: FENTANYL CITRATE (PF) 0.05 MG/ML INJ SOLN (Self Reported) Prescription: CYCLOBENZAPRINE 5 MG ORAL TAB (Self Reported) Prescription: DILTIAZEM HCL 30 MG ORAL TAB (Self Reported) Prescription: ENOXAPARIN 40 MG/0.4 ML SUBQ SYRG (Self Reported) Prescription: MECLIZINE 25 MG ORAL CAP (Self Reported) Prescription: TRAMADOL-ACETAMINOPHEN 37.5-325 MG ORAL TAB (Self Reported) Prescription: INSULIN LISPRO 100 UNIT/ML SUBQ SOLN (Self Reported) Prescription: ACETAMINOPHEN-CODEINE 300-30 MG ORAL TAB (Self Reported) Prescription: ALBUTEROL SULFATE 90 MCG/ACTUATION INHL HFAA (Self Reported) Prescription: HYDROMORPHONE (PF) 2 MG/ML INJ SYRG (Self Reported) Prescription: BENZONATATE 100 MG ORAL CAP (Self Reported) Prescription: NITROGLYCERIN 0.4 MG SL SUBL (Self Reported) Prescription: TRAMADOL 50 MG ORAL TAB (Self Reported) Prescription: CEFAZOLIN 2 G IVPB (Self Reported) Prescription: ACETAMINOPHEN 500 MG ORAL TAB (Self Reported) Prescription: MORPHINE INJECTION (Self Reported) Prescription: MORPHINE 2 MG/ML INJ SYRG (Self Reported) Prescription: HYDROCODONE-ACETAMINOPHEN 5-325 MG ORAL TAB (Self Reported) Prescription: MIRALAX 17 GRAM ORAL PWPK (Self Reported) Prescription: NITROFURANTOIN MONOHYD/M-CRYST 100 MG ORAL CAP (Self Reported) Prescription: HYDROCODONE-ACETAMINOPHEN 5-325 MG ORAL TAB (Self Reported) Prescription: DIAZEPAM 5 MG ORAL TAB (Self Reported) Prescription: ACETAMINOPHEN 325 MG ORAL TAB (Self Reported) Prescription: OXYCODONE-ACETAMINOPHEN 5-325 MG ORAL TAB (Self Reported) Prescription: NITROFURANTOIN MONOHYD/M-CRYST 100 MG ORAL CAP (Self Reported) Prescription: SODIUM CHLORIDE 0.9 % IV BOLUS (Self Reported) Prescription: FLONASE 50 MCG/ACTUATION NASL SPSN (Self Reported) Prescription: TRAMADOL 50 MG ORAL TAB (Self Reported) Prescription: GLUCOSE MONITOR (FOR HOME USE) (Self Reported) Prescription: METOCLOPRAMIDE HCL 5 MG/ML INJ SOLN (Self Reported) Prescription: EXENATIDE 10 MCG/0.04 ML SUBQ PNIJ (Self Reported) Prescription: NITROFURANTOIN MONOHYD/M-CRYST 100 MG ORAL CAP (Self Reported) Prescription: FENTANYL CITRATE (PF) 0.05 MG/ML INJ SOLN (Self Reported) Prescription: HYDROMORPHONE (PF) 2 MG/ML INJ SYRG (Self Reported) Prescription: INSULIN LISPRO 100 UNIT/ML SUBQ SOLN (Self Reported) Prescription: HYDROCODONE-ACETAMINOPHEN 5-325 MG ORAL TAB (Self Reported) Prescription: IBUPROFEN 800 MG ORAL TAB (Self Reported) Prescription: ONDANSETRON HCL (PF) 4 MG/2 ML INJ SOLN (Self Reported) Prescription: ALBUTEROL SULFATE 90 MCG/ACTUATION INHL HFAA (Self Reported) Prescription: DARVOCET-N 100 100-650 MG ORAL TAB (Self Reported) Prescription: CYCLOBENZAPRINE 5 MG ORAL TAB (Self Reported) Prescription: BUDESONIDE-FORMOTEROL 160-4.5 MCG/ACTUATION INHL HFAA (Self Reported) Prescription: RLFIDVKITQ-BGKUEYMHKSBAO-DXVP 50-325-40 MG ORAL TAB (Self Reported) Prescription: PREDNISONE 20 MG ORAL TAB (Self Reported) Prescription: HYDROCODONE-ACETAMINOPHEN 5-325 MG ORAL TAB (Self Reported) Prescription: IBUPROFEN 600 MG ORAL TAB (Self Reported) Prescription: INSULIN LISPRO (HUMAN) SENSITIVITY FACTOR (Self Reported) Prescription: SODIUM CHLORIDE 0.9 % IV BOLUS (Self Reported) Prescription: CYCLOBENZAPRINE 5 MG ORAL TAB (Self Reported) Prescription: OXYCODONE-ACETAMINOPHEN 5-325 MG ORAL TAB (Self Reported) Prescription: ONDANSETRON HCL 4 MG ORAL TAB (Self Reported) Prescription: ACETAMINOPHEN 500 MG ORAL TAB (Self Reported) Prescription: PYRIDOXINE (VITAMIN B6) 50 MG ORAL TAB (Self Reported) Prescription: ACETAMINOPHEN 650 MG ORAL TBSR (Self Reported) Prescription: FUROSEMIDE 40 MG ORAL TAB (Self Reported) Prescription: BUDESONIDE-FORMOTEROL 160-4.5 MCG/ACTUATION INHL HFAA (Self Reported) Prescription: FAMOTIDINE (PF) 20 MG/2 ML IV SOLN (Self Reported) Prescription: CHOLECALCIFEROL (VITAMIN D3) 50 MCG (2,000 UNIT) ORAL CAP (Self Reported) Prescription: DEXTROSE 50 % IN WATER (D50W) IV SYRG (Self Reported) Prescription: PYRIDOXINE (VITAMIN B6) 50 MG ORAL TAB (Self Reported) Prescription: FAMOTIDINE 20 MG ORAL TAB (Self Reported) Prescription: ALUM-MAG HYDROXIDE-SIMETH 200-200-20 MG/5 ML ORAL SUSP (Self Reported) Prescription: PROMETHAZINE 25 MG IN NS 25 ML IV PGBK (Self Reported) Prescription: SULFAMETHOXAZOLE-TRIMETHOPRIM 800-160 MG ORAL TAB (Self Reported) Prescription: ACETAMINOPHEN 325 MG ORAL TAB (Self Reported) Prescription: PERCOCET 5-325 MG ORAL TAB (Self Reported) Prescription: ESOMEPRAZOLE MAGNESIUM 20 MG ORAL CPDR (Self Reported) Prescription: SUCRALFATE 1 GRAM ORAL TAB (Self Reported) Prescription: ALUM-MAG HYDROXIDE-SIMETH 200-200-20 MG/5 ML ORAL SUSP (Self Reported) Prescription: PROMETHAZINE 25 MG ORAL TAB (Self Reported) Prescription: CYANOCOBALAMIN (VITAMIN B-12) 250 MCG ORAL TAB (Self Reported) Prescription: ASPIRIN 81 MG ORAL TBEC (Self Reported) Prescription: MORPHINE 10 MG/ML INJ SYRG (Self Reported) Prescription: BENZONATATE 200 MG ORAL CAP (Self Reported) Prescription: HYDROCODONE-ACETAMINOPHEN 5-325 MG ORAL TAB (Self Reported) Prescription: DIPHENHYDRAMINE HCL 25 MG ORAL TAB (Self Reported) Prescription: HYDROMORPHONE (PF) 2 MG/ML INJ SYRG (Self Reported) Prescription: PREDNISONE 10 MG ORAL TAB (Self Reported) Prescription: DIAZEPAM 5 MG ORAL TAB (Self Reported) Prescription: ONDANSETRON 4 MG ORAL TBDL (Self Reported) Prescription: FOLIC ACID 1 MG ORAL TAB (Self Reported) Prescription: IPRATROPIUM-ALBUTEROL 0.5 MG-3 MG(2.5 MG BASE)/3 ML INHL NEBU (Self Reported) Prescription: OXYCODONE-ACETAMINOPHEN 5-325 MG ORAL TAB (Self Reported) Prescription: GABAPENTIN 100 MG ORAL CAP (Self Reported) Prescription: SODIUM CHLORIDE 0.9 % INJ SYRG (Self Reported) Prescription: ASPIRIN 81 MG ORAL CHEW (Self Reported) Prescription: METFORMIN 500 MG ORAL TAB (Self Reported) Prescription: KETOROLAC 60 MG/2 ML IM SOLN (Self Reported) Prescription: PROCHLORPERAZINE EDISYLATE 10 MG/2 ML (5 MG/ML) INJ SOLN (Self Reported) Prescription: HYDROCODONE-CHLORPHENIRAMINE 10-8 MG/5 ML ORAL SU12 (Self Reported) Prescription: OXYCODONE-ACETAMINOPHEN 5-325 MG ORAL TAB (Self Reported) Prescription: ONDANSETRON HCL 4 MG ORAL TAB (Self Reported) Prescription: NITROFURANTOIN MONOHYD/M-CRYST 100 MG ORAL CAP (Self Reported) Prescription: TAMSULOSIN 0.4 MG ORAL CAP (Self Reported) Prescription: medroxyPROGESTERone 10 mg Tab (Self Reported) Prescription: FreeStyle Philip 14 Day Sensor Kit (Self Reported) Prescription: traMADoL 50 mg Tab (Self Reported) Prescription: SODIUM CHLORIDE 0.9 % IV BOLUS (Self Reported) Prescription: ASPIRIN 81 MG ORAL TBEC (Self Reported) Prescription: FENTANYL CITRATE (PF) 0.05 MG/ML INJ SOLN (Self Reported) Prescription: ondansetron 4 mg Tab (Self Reported) Prescription: EXENATIDE MICROSPHERES 2 MG/0.65 ML SUBQ PNIJ (Self Reported) Prescription: OXYCODONE-ACETAMINOPHEN 5-325 MG ORAL TAB (Self Reported) Prescription: MISCELLANEOUS HOME SUPPLIES AND EQUIPMENT (FOR HOME USE) (Self Reported) Prescription: OXYCODONE-ACETAMINOPHEN 5-325 MG ORAL TAB (Self Reported) Prescription: SODIUM CHLORIDE 0.9 % IV BOLUS (Self Reported) Prescription: FERROUS SULFATE 325 MG (65 MG IRON) ORAL TBEC (Self Reported) Prescription: UltiCare Pen Needle 32 gauge x 32 Ndle (Self Reported) Prescription: LORazepam 0.5 mg Tab (Self Reported) Prescription: PERFLUTREN 10 ML SYRINGE (Self Reported) Prescription: ACETAMINOPHEN-CODEINE 120-12 MG/5 ML ORAL ELIX (Self Reported) Prescription: LAMOTRIGINE 25 MG ORAL TAB (Self Reported) External Note from [facility] Care Provider [phone], Dionicio Murrieta documented in this encounter Plan of Treatment Not on file documented as of this encounter Visit Diagnoses Not on filedocumented in this encounter Additional Health Concerns Infection Onset Date Last Indicated Resolved Time Rule Out - Coronavirus (CoVID-19) 11/27/2021 022 11/28/2021 2:48 AM EDT Coronavirus (CoVID-19) 11/27/2021 11/27/202112/25 2:32 AM EDT Rule Out - Coronavirus (CoVID-19) 07/20/2024 025 07/20/2024 9:56 AM EST Assessment Noted Time A fall risk assessment has been complete d for the patient 08/15/2021 8:38 AM EST documented as of this encounter Care Teams Fraternity House Cook Relationship Specialty Start Date End Date [place]isl[place] [address] PCP - General Family Medicine 04/26/19 03/10/22 Unassigned, DoctorMD [address] [place] [address] ANASTACIO Gupta [address] PCP - General Family Medicine 03/11/22 documented [...] prosecute any alcohol or drug abuse patient. [facility] [employer] ([facility])
--- OUTSIDE RECORDS SUMMARY | 2025-06-06 22:34 | XMS_ITS | Encounter Summary ---
Author Organization [employer] ([facility] [employer]) Address [address] [place] [address] Care Team Providers Care Outside Sales Consultant Name Role Phone Naila Vallejo MD Primary Care Provider + Unassigned, Doctor RAMIREZ Primary Care Provider Unav ailable Mehnaz Obando NP Primary Care Provider [phone] [place] Joseph Srinivasan Primary Care Provide r Aislinn Merlos Primary Care Provider [phone] Unassigned, Doctor RAMIREZ Primary Care Provider Unav ailable Reason for Visit * Reason Comments Refill Request Encounter Details Date Type Department Care Team (Late st Contact Info) Description 09/17/2015 Refill [facility] [address] [id number] Naila Vallejo MD [address] [place] [address] Refill Request Social History Tobacco Use Types [...] documented as of this encounter Care Teams Outside Sales Consultant Relationship Specialty Start Date End Date Naila Vallejo MD PCP - General Family Medicine 09/20/13 04/01/17 Unassigned, MD Daniella PCP - General 04/02/17 09/09/17 Mehnaz Obando NP PCP - General Internal Medicine 09/10/17 03/01/19 Joseph Moraes [address] [place] [address] PCP - General Group provider 03/02/19 04/25/19 Aislinn Merlos PA [address] [place] [address] [place] [address] PCP - General Family Medicine [...] alcohol or drug abuse patient. [facility] [employer] ([facility])
[2025-06-06 23:20] LABS: Respiratory Syncytial Virus Ce NEGATIVE (Negative); SARS-CoV-2 PCR NEGATIVE (Negative)
[2025-06-07 00:28] VITALS: BP 122/76; PULSE 73; RESP 16; O2SAT 97
== END 2025-06-07 00:24 | disposition home or self-care (01) ==
PROVIDERS: Emergency Provider Emergency Medicine
DX: R51.9 Headache, unspecified (principal); Z11.52 Encounter for screening for COVID-19
CPT/HCPCS: 70450; 87637; 99284

== ENCOUNTER 2025-06-20 16:16 | Emergency (ER) | payer SELFPAY ==
--- OUTSIDE RECORDS SUMMARY | 2024-04-16 05:00 | XMS_ITS ---
Author Organization [facility] [address] Address [address] [facility] [address] [place] [address] Care Team Providers Care Machine Records Units Supervisor Name Role Phone Sunni Ramon Primary Care Provider Benoit Chance Unavailable [phone] Mike Diego Unavailable [phone] REASON FOR VISIT B/L Arm Medications Medication [...] W/U Status Risk Notes Problem Lumbar radiculopathy (399464060) Radiculopat hy, lumbar region (M54.16) Active confirmed Encounters Encounter Location Date Provider Diagnosis [facility] [address] [place] [address] 04/16/2024 Mike Diego Radiculopathy, lumbar region M54.16 Assessments Encounter Date Diagnosis (ICD Code) Assessment Notes Treatment Notes Treatment Clinical Notes Section Notes 04/16/2024 Radiculopathy, lumbar region (ICD-10 - M54.16) Plan Of Treatment No Information Progress Notes * Cyrus SWANSONАннаOB:1975 (50 yo F)Acc No.[id number]:04/16/2024 Patient: Georgia Hong Provider: Vijaya Diego DO :1975 A ge:48 Y S ex:Female Date:04/16/2024 Address:[address] [place], [place] [address] Pcp:Sunni Ramon Subjective: * Chief Complaints: * [...] Procedure Codes: 9 5886 Needle electromyography, each [id number] NRV CNDJ TEST 9-10 STUDIES Billing Information: * Procedure Codes: 58826 Needle electromyography, each extremity. 68[address] NRV CNDJ TEST 9-10 STUDIES. * Electronic signature of Mike Diego DO on 06/20/2025 at 05:23 PM EST Sign off status: Pending * Provider: Vijaya Diego DO Date: Generated for Xenia valdez/Fabio/Maude on: 08/21/2024 05:23 PM EST
--- OUTSIDE RECORDS SUMMARY | 2024-04-19 05:20 | XMS_ITS ---
Author Organization [facility] [address] Address [address] [facility] [address] [place] [address] Care Team Providers Care Accounting Teacher Name Role Phone Sunni Ramon Primary Care Provider Benoit Chance [phone] REASON FOR VISIT No Physical Therapy Social History Sex Assigned At : Social History Observation Description Sex Assigned At Female Encounters Encounter Location Date Provider Diagnosis [facility] [address] [place] [address] 04/19/2024 Benoit Patton Plan Of Treatment No Information Progress Notes * Wily SWANSONOB:1975 (50 yo F)Acc No.[id number]:04/19/2024 Progress Note Patient: Georgia Hong Provider: GIANNI Wilcox :1975 A ge:48 Y S ex:Female Date:04/19/2024 Address:[address] [place], [place] [id number] Pcp:Sunni Ramon Subjective: * Chief Complaints: * N o Physical Therapy Billing Information: * Procedure Codes: * Electronic signature of TRICE Mathis on 06/20/2025 at 05:23 PM EST Sign off status: Pending * Provider: GIANNI Wilcox Date: Generated for Printi ng/Faxing/eTransmitting on: 1 08/21/2024 05:23 PM EST
--- OUTSIDE RECORDS SUMMARY | 2024-06-16 07:30 | XMS_ITS ---
Author Organization [facility] Address [address] [place] [address] Care Team Providers Care Front Office Clerk Name Role Phone Benedicto Talley MD Unavailable Unavailable Migration, Provider Unavailable Unavailable REASON FOR VISIT Follow Up Visit Encounters Encounter Location Date Provider Diagnosis [facility] [address] [place] [address] 06/16/2024 Provider Migration Plan Of Treatment No Information Progress Notes * Georgia ARAGONDOB:[birth year] (50 yo F)Acc No.[id number]:06/16/2024 Progress Notes Patient: Geo godinezGeorgia Provider: Km Frank :1975 A ge:49 Y S ex:Female Date:06/16/2024 Address:[address] [place] [address] Subjective: * Chief Complaints: * F ollow Up Visit * Electronic signature of Prov ider Migration on 06/20/2025 at 05:22 PM EST Sign off status: Pending * Provider: Km to Migration Date: 08/17/2023 Generated for Xenia valdez/Fabio/eTransmitting on: 08/21/2024 05:22 PM EST
--- OUTSIDE RECORDS SUMMARY | 2024-07-08 04:10 | XMS_ITS ---
Author Organization [facility] [address] Address [address] [facility] [address] [place] [address] Care Team Providers Care Composition Tile Layer Name Role Phone Sunni Ramon Primary Care Provider Benoit Chance [phone] REASON FOR VISIT Pt Personal Reasons Social History Sex Assigned At : Social History Observation Description Sex Assigned At Female Encounters Encounter Location Date Provider Diagnosis [facility] [address] [facility] [place] [address] 07/08/2024 Benoit Patton Plan Of Treatment No Information Progress Notes * Wily SWANSONOB:1975 (50 yo F)Acc No.[id number]:07/08/2024 Progress Note Patient: Georgia Hong Provider: GIANNI Wilcox :1975 A ge:49 Y S ex:Female Date:07/08/2024 Address:[address] [place], [place] [phone] Pcp:Sunni Ramon Subjective: * Chief Complaints: * P t Personal Reasons Billing Information: * Procedure Codes: * Electronic signature of TRICE Mathis on 06/20/2025 at 05:24 PM EST Sign off status: Pending * Provider: GIANNI Wilcox Date: 0 07/08/2024 Generated for Printi ng/Faxing/eTransmitting on: 1 08/21/2024 05:24 PM EST
--- OUTSIDE RECORDS SUMMARY | 2024-08-02 05:00 | XMS_ITS ---
Author Organization [facility] Address [address] [place] [address] Care Team Providers Care Fruit Room Hand Name Role Phone Benedicto Talley MD Unavailable [...] 08/02/2024 Encounters Encounter Location Date Provider Diagnosis [facility] [address] [place] [address] 08/02/2024 Provider Migration Plan Of Treatment No Information Progress Notes * Georgia ARAGONDOB:[birth year] (50 yo F)Acc No.[id number]:08/02/2024 Progress Notes Patient: Geo Georgia godinez Provider: Km Frank :1975 A ge:49 Y S ex:Female Date:08/02/2024 Address:[address] [place], [place] [phone] Subjective: * Chief Complaints: * O ffice Visit Objective: * Vitals: B P: 102/72 mm Hg, HR: 88 /min, Temp: 98.10 F, Oxygen sat %: 99 %, Wt: 253.0000 lbs, Wt-k.76 kg, Ht: 64.00 in, Ht-cm: 162.56 cm, BMI: 43.42 Index. Plan: * Procedure Codes: 3 078F DIAST BP < 80 MM [id number] SYST BP LT 130 MM [id number] BODY MASS INDEX DOCD Billing Information: * Procedure Codes: 3078F DIAST BP < 80 MM HG. 3074F SYST BP LT 130 MM HG. 3008F BODY MASS INDEX DOCD. * Electronic signature of Prov ider Migration on 06/20/2025 at 05:23 PM EST Sign off status: Pending * Provider: Km to Migration Date: 0 08/02/2024 Generated for Xenia valdez/Fabio/Maude on: 1 08/21/2024 05:23 PM EST
--- OUTSIDE RECORDS SUMMARY | 2024-09-06 03:30 | XMS_ITS ---
Author Organization [facility] Address [address] [place] [address] Care Team Providers Care Medical Language Specialist Name Role Phone Benedicto Talley MD Unavailable [...] 09/06/2024 Encounters Encounter Location Date Provider Diagnosis [facility] [address] [place] [address] 09/06/2024 Provider Migration Plan Of Treatment No Information Progress Notes * Georgia ARAGONDOB:[birth year] (50 yo F)Acc No.[id number]:09/06/2024 Progress Notes Patient: Geo Georgia godinez Provider: Km to Migration :1975 A ge:49 Y S ex:Female Date:09/06/2024 Address:[address] [place], [place] [phone] Subjective: * Chief Complaints: * F ollow [...] of Prov ider Migration on 06/20/2025 at 05:26 PM EST Sign off status: Pending * Provider: Km to Migration Date: 0 09/06/2024 Generated for Xenia valdez/Fabio/Rolandoitting on: 1 08/21/2024 05:26 PM EST
--- OUTSIDE RECORDS SUMMARY | 2024-10-02 04:45 | XMS_ITS ---
Author Organization [facility] Address [address] [place] [address] Care Team Providers Care Well Logging Captain Mud Analysis Name Role Phone Benedicto Talley MD Unavailable Unavailable DR. Benedicto Talley Unavailable [phone] REASON FOR VISIT Walk-in Appointment Vital Signs Temperature 98.40 degrees Fahrenheit 025 Blood pressure systolic 130 mm Hg 10/03/19 25 Blood pressure diastolic 78 mm Hg 025 Heart Rate 85 /min 10/02/2024 Height 64.00 in 10/02/2024 Weight 250.2000 lbs 10/02/2024 BMI 42.94 kg/m2 10/02/2024 Oximetry 99 % 10/02/2024 Height-cm 162.56 cm 10/02/2024 Weight-kg 113.49 kg 10/02/2024 Encounters Encounter Location Date Provider Diagnosis [facility] [address] [place] [address] 10/02/2024 Benedicto Talley Plan Of Treatment No Information Progress Notes * Georgia ARAGONDOB:[birth year] (50 yo F)Acc No.[id number]:10/02/2024 Patient: Geo godinez Georgia Meza Provider: Georgia Talley MD :1975 A ge:49 Y S ex:Female Date:10/02/2024 Address:[address] [place], [place] [phone] Subjective: * Chief Complaints: * W alk-in Appointment Objective: * Vitals: B P: 130/78 mm Hg, HR: 85 /min, Temp: 98.40 F, Oxygen sat %: 99 %, Wt: 250.2000 lbs, Wt-k.49 kg, Ht: 64.00 in, Ht-cm: 162.56 cm, BMI: 42.94 Index. * Electronic signature of DR. Benedicto Talley MD on 06/20/2025 at 05:23 PM EST Sign off status: Pending * Provider: Georgia Talley MD Date: 0 10/02/2024 Generated for Xenia valdez/Fabio/Rolandoitting on: 1 08/21/2024 05:23 PM EST
--- OUTSIDE RECORDS SUMMARY | 2024-10-02 04:45 | XMS_ITS ---
Author Organization [facility] are Address [address] [place] [address] Care Team Providers Care Motor Checker Name Role Phone Tristen Trish Sunni Primary Care Provider [phone] Benedicto Talley MD Unavailable Unavailable DR. Benedicto Talley Unavailable [phone] REASON FOR VISIT Walk-in Appointment Vital Signs Temperature 98.40 degrees Fahrenheit 025 Blood pressure systolic 130 mm Hg 10/03/19 25 Blood pressure diastolic 78 mm Hg 025 Heart Rate 85 /min 10/02/2024 Height 64.00 in 10/02/2024 Weight 250.2000 lbs 10/02/2024 BMI 42.94 kg/m2 10/02/2024 Oximetry 99 % 10/02/2024 Height-cm 162.56 cm 10/02/2024 Weight-kg 113.49 kg 10/02/2024 Encounters Encounter Location Date Provider Diagnosis [facility] [address] [place] [address] 10/02/2024 Benedicto Talley Plan Of Treatment No Information Progress Notes * Georgia ARAGONDOB:[birth year] (50 yo F)Acc No.[id number]:10/02/2024 Progress Notes Patient: Geo godinez Georgia Meza Provider: Georgia Talley MD :1975 A ge:49 Y S ex:Female Date:10/02/2024 Address:[address] [place], [place] [phone] Pcp:MRS. Sunni Ramon Subjective: * Chief Complaints: * W alk-in Appointment Objective: * Vitals: B P: 130/78 mm Hg, HR: 85 /min, Temp: 98.40 F, Oxygen sat %: 99 %, Wt: 250.2000 lbs, Wt-k.49 kg, Ht: 64.00 in, Ht-cm: 162.56 cm, BMI: 42.94 Index. * Electronic signature of DR. Benedicto Talley MD on 06/20/2025 at 05:26 PM EST Sign off status: Pending * Provider: Georgia Talley MD Date: 0 10/02/2024 Generated for Xenia valdez/Fabio/Rolandoitting on: 1 08/21/2024 05:26 PM EST
--- OUTSIDE RECORDS SUMMARY | 2024-10-05 03:00 | XMS_ITS ---
Author Organization [facility] Address [address] [place] [address] Care Team Providers Care Recreational Vehicle Resort Manager Name Role Phone Benedicto Talley MD Unavailable Unavailable Migration, Provider Unavailable Unavailable REASON FOR VISIT Annual Physical Immunizations Vaccine [place] Administration [place] [address] Tdap OTH Other/Miscellaneous 10/05/2024 Pending ,ImmunizationName,' : Tdap (7 years and up) (71995) ,Status,' : Ordered Source Location: <Undefined> Vital Signs Temperature 98.50 degrees Fahrenheit 025 Blood pressure systolic 120 mm Hg 10/06/19 25 Blood pressure diastolic 80 mm Hg 025 Heart Rate 76 /min 10/05/2024 Height 64.00 in 10/05/2024 Weight 243.6000 lbs 10/05/2024 BMI 41.81 kg/m2 10/05/2024 Oximetry 99 % 10/05/2024 Height-cm 162.56 cm 10/05/2024 Weight-kg 110.50 kg 10/05/2024 Encounters Encounter Location Date Provider Diagnosis [facility] [address] [place] [address] 10/05/2024 Provider Migration Plan Of Treatment No Information Progress Notes * Georgia ARAGONDOB:[birth year] (50 yo F)Acc No.[id number]:10/05/2024 Progress Notes Patient: Geo Georgia godinez Provider: Km to Migration :1975 A ge:49 Y S ex:Female Date:10/05/2024 Address:[address] [place], [place] [address] Subjective: * Chief Complaints: * A nnual Physical * Ocular Surgical History: Objective: * Vitals: B P: 120/80 mm Hg, HR: 76 /min, Temp: 98.50 F, Oxygen sat %: 99 %, Wt: 243.6000 lbs, Wt-k.50 kg, Ht: 64.00 in, Ht-cm: 162.56 cm, BMI: 41.81 Index. Vision Examination: Plan: * Immunizations: 37500 Tdap (Route: Other/Miscellaneous) (Pending) * Procedure Codes: 9 0471 IMMUNIZATION [id number] TDAP VACCINE >7 [id number] DIAST BP 80-89 MM [id number] SYST BP LT 130 MM [id number] BODY MASS INDEX [id number] BRIEF EMOTIONAL/BEHAV ASSMT Billing Information: * Procedure Codes: 94328 IMMUNIZATION ADMIN. 27083 TDAP VACCINE >7 IM. 3079F DIAST BP 80-89 MM HG. 3074F SYST BP LT 130 MM HG. 3008F BODY MASS INDEX DOCD. 92741 BRIEF EMOTIONAL/BEHAV ASSMT. * Electronic signature of Prov ider Migration on 06/20/2025 at 05:25 PM EST Sign off status: Pending * Provider: Km to Migration Date: 0 10/05/2024 Generated for Xenia valdez/Fabio/Rolandoitting on: 1 08/21/2024 05:25 PM EST
--- OUTSIDE RECORDS SUMMARY | 2024-10-05 03:00 | XMS_ITS ---
Author Organization [facility] are Address [address] [place] [address] Care Team Providers Care Counseling Services Manager Name Role Phone MRS. Sunni Ramon Primary Care Provider [phone] Benedicto Talley MD Unavailable Unavailable Results Component Value Reference Range Notes BLOOD GLUCOSE-HOME MONITOR ( 16880) Reviewed date:10/05/2024 12:00:00 AM Interpretation: Performing Lab: Notes/Report: BLOOD GLUCOSE-HOME MONITOR 83 NR URINALYSIS W/O MICROSCOPY (2 1002) Reviewed date:10/05/2024 12:00:00 AM Interpretation: Performing [...] Vaccine Route Administration [place] 35549 TDAP IM Intramuscular 10/05/2024 Pending ,Immuniz ationName,' : Tdap (7 years and up) (97937) ,Status,' : Ordered Vital Signs Temperature 98.50 degrees Fahrenheit 025 Blood pressure systolic 120 mm Hg 10/06/19 25 Blood pressure diastolic 80 mm Hg 025 Heart Rate 76 /min 10/05/2024 Height 64.00 in 10/05/2024 Weight 243.6000 lbs 10/05/2024 BMI 41.81 kg/m2 10/05/2024 Oximetry 99 % 10/05/2024 Height-cm 162.56 cm 10/05/2024 Weight-kg 110.50 kg 10/05/2024 Encounters Encounter Location Date Provider Diagnosis [facility] [address] [place] [address] 10/05/2024 Sunni Ramon Plan Of Treatment No Information Progress Notes * Georgia ARAGON JDOB:[birth year] (50 yo F)Acc No.[id number]:10/05/2024 Progress Notes Patient: Georgia Hong Provider: CITLALLI Delgado :1975 A ge:49 Y S ex:Female Date:10/05/2024 Address:[address] [place], [place] [phone] Subjective: * Chief Complaints: * A nnual Physical * Ocular Surgical History: Objective: * Vitals: B P: 120/80 mm Hg, HR: 76 /min, Temp: 98.50 F, Oxygen sat %: 99 %, Wt: 243.6000 lbs, Wt-k.50 kg, Ht: 64.00 in, Ht-cm: 162.56 cm, BMI: 41.81 Index. Vision Examination: Plan: * Treatment: Value Reference Range B LOOD GLUCOSE-HOME MONITOR 83 NR ?LAB: URINALYSIS W/O MICROSCOPY (81795) (Collection Date & Time - 10/05/2024)* Value [...] - URINE SEDIMENT x NR * Immunizations: 32683 TDAP (Route: Intramuscular) (Pending) * Labs: * L ab: BLOOD GLUCOSE-HOME MONITOR (58881) (Collection Date & Time - 10/05/2024) Value Reference Range B LOOD GLUCOSE-HOME MONITOR 83 NR * BLOOD GLUCOSE-HOME MONITOR: AbnormalFlags: N ?Lab: URINALYSIS W/O MICROSCOPY (41107) (Collection Date & Time - 10/05/2024)* Value [...] N * Procedure Codes: 9 0471 IMMUNIZATION [id number] TDAP VACCINE >7 HH6063I DIAST BP 80-89 MM [id number] SYST BP LT 130 MM IH3262A BODY MASS INDEX [id number] BRIEF EMOTIONAL/BEHAV ASSMT Billing Information: * Procedure Codes: 69771 IMMUNIZATION ADMIN. 35429 TDAP VACCINE >7 IM. 3079F DIAST BP 80-89 MM HG. 3074F SYST BP LT 130 MM HG. 3008F BODY MASS INDEX DOCD. 35368 BRIEF EMOTIONAL/BEHAV ASSMT. * Electronic signature of MRS. Moeller GIANNI Ramon on 06/20/2025 at 05:24 PM EST Sign off status: Pending * Provider: CITLALLI Delgado Date: 0 10/05/2024 Generated for Xenia valdez/Fabio/Maude on: 1 08/21/2024 05:24 PM EST
--- OUTSIDE RECORDS SUMMARY | 2024-10-05 04:10 | XMS_ITS ---
Author Organization [facility] Address [address] [facility] [address] [address] Care Team Providers Care Ophthalmic Lens Inspector Name Role Phone Sunni Ramon Primary Care Provider Benoit Chance [phone] REASON FOR VISIT C Misc Reason Medications [...] Female Encounters Encounter Location Date Provider Diagnosis [facility] [address] [facility] [place] [address] 10/05/2024 Benoit Patton Plan Of Treatment No Information Progress Notes * Wily SWANSONOB:1975 (50 yo F)Acc No.[id number]:10/05/2024 Progress Note Patient: Georgia Hong Provider: GIANNI Wilcox :1975 A ge:49 Y S ex:Female Date:10/05/2024 Address:[address] [place], [place] [phone] Pcp:Sunni Ramon Subjective: * Chief Complaints: * [...] 10/05/2024 Generated for Xenia Munoz/Maude on: 1 08/21/2024 05:24 PM EST
--- OUTSIDE RECORDS SUMMARY | 2024-10-14 04:00 | XMS_ITS ---
Author Organization [facility] are Address [address] [place] [address] Care Team Providers Care Director Of Direct Marketing Name Role Phone MRS. Sunni Ramon Primary Care Provider Benedicto Talley MD Unavailable REASON FOR VISIT Annual Physical Encounters Encounter Location Date Provider Diagnosis [facility] [address] [place] [address] 10/14/2024 Sunni Ramon Plan Of Treatment No Information Progress Notes * SWANSON, [place] JDOB:[birth year] (50 yo F)Acc No.[id number]:10/14/2024 Progress Notes Patient: [place] Hong Provider: CITLALLI Delgado :1975 A ge:49 Y S ex:Female Date:10/14/2024 Address:[address] [place] [address] Subjective: * Chief Complaints: * A nnual Physical * Ocular Surgical History: Objective: Vision Examination: * Electronic signature of MRS. Moeller GIANNI Ramon on 06/20/2025 at 05:26 PM EST Sign off status: Pending * Provider: CITLALLI Delgado Date: 0 10/14/2024 Generated for Xenia valdez/Fabio/eTransmitting on: 1 08/21/2024 05:26 PM EST
--- OUTSIDE RECORDS SUMMARY | 2024-10-14 04:00 | XMS_ITS ---
Author Organization [facility] Address [address] [place] [address] Care Team Providers Care Agricultural Engineering Technicians Name Role Phone Benedicto Talley MD Unavailable Unavailable Migration, Provider Unavailable Unavailable REASON FOR VISIT Annual Physical Encounters Encounter Location Date Provider Diagnosis [facility] [address] [place] [address] 10/14/2024 Provider Migration Plan Of Treatment No Information Progress Notes * [place] ARAGONDOB:[birth year] (50 yo F)Acc No.[id number]:10/14/2024 Progress Notes Patient: Geo godinezGeorgia Provider: Km Frank :1975 A ge:49 Y S ex:Female Date:10/14/2024 Address:[address] [place] [address] Subjective: * Chief Complaints: * A nnual Physical * Ocular Surgical History: Objective: Vision Examination: * Electronic signature of Prov ider Migration on 06/20/2025 at 05:25 PM EST Sign off status: Pending * Provider: Km to Migration Date: 0 10/14/2024 Generated for Xenia valdez/Fabio/Maude on: 1 08/21/2024 05:25 PM EST
--- OUTSIDE RECORDS SUMMARY | 2024-11-04 03:00 | XMS_ITS ---
Author Organization [facility] are Address [address] [place] [address] Care Team Providers Care Population Health Coach Name Role Phone RamonMRS. ирина Sunni Primary Care Provider [phone] Benedicto Talley MD Unavailable REASON FOR VISIT [...] 11/04/2024 Encounters Encounter Location Date Provider Diagnosis [facility] [place] [address] 11/04/2024 Sunni Ramon Plan Of Treatment No Information Progress Notes * [place] ARAGONDOB:[birth year] (50 yo F)Acc No.[id number]:11/04/2024 Progress Notes Patient: Geo godinez [place] Meza Provider: CITLALLI Delgado :1975 A ge:49 Y S ex:Female Date:11/04/2024 Address:[address] [place], [place] [phone] Subjective: * Chief Complaints: * F ollow Up Visit Objective: * Vitals: B P: 122/84 mm Hg, HR: 90 /min, Temp: 98.40 F, Oxygen sat %: 97 %, Wt: 239.0000 lbs, Wt-k.41 kg, Ht: 64.00 in, Ht-cm: 162.56 cm, BMI: 41.02 Index. Plan: * Procedure Codes: 3 079F DIAST BP 80-89 MM [id number] SYST BP LT 130 MM [id number] BODY MASS INDEX DOCD Billing Information: * Procedure Codes: 3079F DIAST BP 80-89 MM HG. 3074F SYST BP LT 130 MM HG. 3008F BODY MASS INDEX DOCD. * Electronic signature of GIANNI Porter on 06/20/2025 at 05:24 PM EST Sign off status: Pending * Provider: CITLALLI Delgado Date: 0 11/04/2024 Generated for Xenia valdez/Fabio/Maude on: 1 08/21/2024 05:24 PM EST
--- OUTSIDE RECORDS SUMMARY | 2024-11-04 03:00 | XMS_ITS ---
Author Organization [facility] Address [address] [place] [address] Care Team Providers Care Underwater Welder Name Role Phone Benedicto Talley MD Unavailable [...] 11/04/2024 Encounters Encounter Location Date Provider Diagnosis [facility] [address] [place] [address] 11/04/2024 Provider Migration Plan Of Treatment No Information Progress Notes * [place] ARAGONDOB:[birth year] (50 yo F)Acc No.[id number]:11/04/2024 Progress Notes Patient: Geo [place] godinez Provider: Km to Migration :1975 A ge:49 Y S ex:Female Date:11/04/2024 Address:[address] [place], [place] [phone] Subjective: * Chief Complaints: * F ollow Up Visit Objective: * Vitals: B P: 122/84 mm Hg, HR: 90 /min, Temp: 98.40 F, Oxygen sat %: 97 %, Wt: 239.0000 lbs, Wt-k.41 kg, Ht: 64.00 in, Ht-cm: 162.56 cm, BMI: 41.02 Index. Plan: * Procedure Codes: 3 079F DIAST BP 80-89 MM [id number] SYST BP LT 130 MM [id number] BODY MASS INDEX DOCD Billing Information: * Procedure Codes: 3079F DIAST BP 80-89 MM HG. 3074F SYST BP LT 130 MM HG. 3008F BODY MASS INDEX DOCD. * Electronic signature of Prov ider Migration on 06/20/2025 at 05:22 PM EST Sign off status: Pending * Provider: Km to Migration Date: 0 11/04/2024 Generated for Xenia valdez/Fabio/Maude on: 1 08/21/2024 05:22 PM EST
--- OUTSIDE RECORDS SUMMARY | 2025-01-06 03:30 | XMS_ITS ---
Author Organization [facility] are Address [address] [place] [address] Care Team Providers Care Blow Mold Machine Operator Name Role Phone MRS. Sunni Ramon Primary Care Provider Benedicto Talley MD Unavailable REASON FOR VISIT Follow Up Visit Encounters Encounter Location Date Provider Diagnosis [facility] [address] [place] [address] 01/06/2025 Sunni Ramon Plan Of Treatment No Information Progress Notes * SWANSONGeorgiaDOB:[birth year] (50 yo F)Acc No.[id number]:01/06/2025 Progress Notes Patient: Georgia Hong Provider: CITLALLI Delgado :1975 A ge:49 Y S ex:Female Date:01/06/2025 Address:[address] [place], [place] [phone] Subjective: * Chief Complaints: * F ollow Up Visit * Electronic signature of MRS. Moeller GIANNI Ramon on 06/20/2025 at 05:22 PM EST Sign off status: Pending * Provider: CITLALLI Delgado Date: 0 01/06/2025 Generated for Xenia valdez/Fabio/eThusseinsmitting on: 1 08/21/2024 05:22 PM EST
--- OUTSIDE RECORDS SUMMARY | 2025-01-06 03:30 | XMS_ITS ---
Author Organization [facility] Address [address] [place] [address] Care Team Providers Care Building Maintenance Custodian Name Role Phone Benedicto Talley MD Unavailable Unavailable Migration, Provider Unavailable Unavailable REASON FOR VISIT Follow Up Visit Encounters Encounter Location Date Provider Diagnosis [facility] [address] [place] [address] 01/06/2025 Provider Migration Plan Of Treatment No Information Progress Notes * [place] ARAGONDOB:[birth year] (50 yo F)Acc No.[id number]:01/06/2025 Progress Notes Patient: Geo godinezGeorgia Provider: Km Frank :1975 A ge:49 Y S ex:Female Date:01/06/2025 Address:[address] [place] [address] Subjective: * Chief Complaints: * F ollow Up Visit * Electronic signature of Prov ider Migration on 06/20/2025 at 05:25 PM EST Sign off status: Pending * Provider: Km to Migration Date: 0 01/06/2025 Generated for Xenia valdez/Fabio/eThusseinsmitting on: 1 08/21/2024 05:25 PM EST
--- OUTSIDE RECORDS SUMMARY | 2025-02-26 03:00 | XMS_ITS ---
Author Organization [facility] are Address [address] [place] [address] Care Team Providers Care Mammography Supervisor Name Role Phone MRS. Sunni Ramon Primary Care Provider Benedicto Talley MD Unavailable Unavailable Migration, Provider Unavailable Unavailable REASON FOR VISIT EMR-Héctor Encounters Encounter Location Date Provider Diagnosis [facility] [address] [place] [address] 02/26/2025 Provider Migration Plan Of Treatment Medication Medication Name Sig Start Date Stop Date Notes promethazine 6.25mg/5 mL promethazine 6. 25mg/5 mL, 4 Milliliter every 6 hours as needed for nausea # 360, 07/24/2022, No Refill. Inactive oral every 6 hours as needed for nausea; Duration: 5 07/24/2022 3 *Reorder from [facility] for eRx and Interaction Alerts* Pravastatin 20mg pravastatin 20mg, 1 Tablet daily # 30, 09/12/2023, No Refill. Inactive oral daily; Duration: 30 09/12/2023 4 *Reorder from [facility] for eRx and Interaction Alerts* tamsulosin 0.4mg tamsulosin 0.4mg, 1 (one) Capsule daily # 7, 04/03/2022, No Refill. Inactive oral daily; Duration: 7 04/03/2022 3 *Reorder from [facility] for eRx and Interaction Alerts* Ozempic 0.25 mg or 0.5mg (2 mg/3 Ozempic 0.25 mg or 0.5mg (2 mg/3, 0.5 mg weekly # 3, 12/11/2023, No Refill. Inactive subcutaneous weekly; Duration: 28 12/11/2023 4 *Reorder from [facility] for eRx and Interaction Alerts* Ozempic 1 mg/dose(4 mg/3 mL Ozempic 1 mg/dose(4 mg/3 mL, 1 (one) mL weekly # 4, 05/07/2024, No Refill. Inactive subcutaneous weekly; Duration: 30 05/07/2024 5 *Reorder from [facility] for eRx and Interaction Alerts* cyclobenzaprine 5mg cyclobenzaprine 5mg, 1 (one) Tablet three times daily # 15, 04/03/2022, No Refill. Inactive oral three times daily; Duration: 5 04/03/2022 3 *Reorder from [facility] for eRx and Interaction Alerts* cholecalciferol (vitamin D3) 1,250 mcg(50,000 un cholecalciferol (vitamin D3) 1,250 mcg(50,000 un, 1 Capsule every week # 12, 03/11/2024, No Refill. Inactive oral every week; Duration: 84 03/11/2024 4 *Reorder from [facility] for eRx and Interaction Alerts* Lantus Solostar U-100 Insulin 100 unit/mL(3 mL) Lantus Solostar U-100 Insulin 100 unit/mL(3 mL), 20 units at bedtime # 10, 05/07/2024, Ref. x5. Inactive subcutaneous at bedtime; Duration: 30 05/07/2024 5 *Reorder from [facility] for eRx and Interaction Alerts* HumaLOG KwikPen Insulin 100unit/mL HumaLOG KwikPen Insulin 100unit/mL, 5 units subcutaneous three times a day with breakfast, lunch, and dinner # 5, 03/10/2024, Ref. x5. Inactive subcutaneous subcutaneous three times a day with breakfast, lunch, and dinner; Duration: 30 03/10/2024 4 *Reorder from [facility] for eRx and Interaction Alerts* Ozempic 2 mg/dose(8 mg/3 mL Ozempic 2 mg/dose(8 mg/3 mL, 2 (two) milligram SQ once weekly # 9, 03/14/2023, No Refill. Inactive subcutaneous SQ once weekly; Duration: 03/14/2023 3 *Reorder from [facility] for eRx and Interaction Alerts* FreeStyle Philip 2 Vance - Device FreeStyle Philip 2 Vance , 1 (one) Device as directed # [...] 2 sensors per 28 days Dexcom G5 Electric Utility Lineworker Kit Dexcom G5 Receive r Kit , 1 (one) Device as directed # 1, 11/10/2020, Ref. x11. Inactive as directed; Duration: 14 11/10/2020 1 DX: UNCONTROLLED INSULLIN DEPENDENT DIABETES Guardian Sensor (3) Guardian Sensor (3) , as directed # 90, 11/08/2020, Ref. x3. Inactive as directed; Duration: 11/08/2020 1 1YR SUPPLY Soliqua 100-33 UNT-MCG/ML Solution Pen-injector Soliqua [id number], 10 units at bedtime daily for type [...] once weekly; Duration: 30 08/30/2020 *Reorder from [facility] for eRx and Interaction Alerts* Lyndsey Allergy 180MG Lyndsey Allergy 18 0MG, 1 (one) Tablet daily # 30, 10/28/2018, Ref. x6. Inactive Oral daily; Duration: 30 10/28/2018 9 *Pick strength-form from [facility] for eRX* metFORMIN HCl ER 500 MG [...] daily; Duration: 0 12/08/2020 *Pick strength-form from [facility] for eRX* Dulera 100-5 MCG/ACT Aerosol Dulera 100-5mcg/actuat, 2 puffs 2 times per day # 13, 12/23/2023, Ref. x5. Inactive Inhalation 2 times per day; Duration: 30 12/23/2023 4 B-6 100MG B-6( 100MG Oral 1 da geoff ) Inactive -Hx Entry Oral daily; Duration: 0 12/24/2020 *Pick strength-form from [facility] for eRX* ZyrTEC-D Allergy & Congestion 5-120MG ZyrTEC-D Allergy & Congestion 5-120MG, 1 (one) Tablet daily # 20, 08/11/2018, No Refill. Inactive Oral daily; Duration: 20 08/11/2018 9 *Pick strength-form from [facility] for eRX* Zoloft 50MG Zoloft 50MG, 1 (one) Tablet daily # 90, 07/10/2019, Ref. x3. Inactive Oral daily; Duration: 90 07/10/2019 0 *Pick strength-form from [facility] for eRX* Ventolin HFA 108 (90 Base) [...] Oral daily; Duration: 0 07/06/2019 *Reorder from [facility] for eRx and Interaction Alerts* Voltaren 1% Voltaren 1%, 2 (two) gram Apply to the affected joint(s) twice daily as needed for pain # 100, 08/11/2020, No Refill. Inactive External Apply to the affected joint(s) twice daily as needed for pain; Duration: 10 08/11/2020 1 *Pick strength-form from [facility] for eRX* Sucralfate 1 GM/10ML Suspension Sucralfate [...] wheezing; Duration: 30 11/21/2020 1 *Reorder from [facility] for eRx and Interaction Alerts* Phenazopyridine HCl 200MG Phenazopyridin e HCl 200MG, 1 (one) Tablet three times daily as needed for urinary symptoms # 21, 01/04/2019, Ref. x2. Inactive Oral three times daily as needed for urinary symptoms; Duration: 7 01/04/2019 9 *Pick strength-form from [facility] for eRX* Phentermine HCl 37.5 MG Capsule [...] Duration: 30 06/13/2021 2 *Pick strength-form from [facility] for eRX* medroxyPROGESTERone Acetate 10 MG Tablet [...] daily; Duration: 0 07/05/2019 *Pick strength-form from [facility] for eRX* Lisinopril 10 MG Tablet lisinopriL [...] eating; Duration: 3 07/02/2018 9 *Reorder from [facility] for eRx and Interaction Alerts* Furosemide 20 MG Tablet furosemide 20mg, 1 (one) Tablet once daily # 30, 06/07/2022, Ref. x5. Inactive Oral once daily; Duration: 30 06/07/2022 4 Folic Acid 400MCG Folic Acid( 400MCG O ral 1 tablet daily ) Inactive -Hx Entry Oral daily; Duration: 0 12/08/2020 *Pick strength-form from [facility] for eRX* Gabapentin 300mg gabapentin( 300mg or al 1 three times daily ) Inactive -Hx Entry oral three times daily; Duration: 0 10/02/2024 5 *Pick strength-form from [facility] for eRX* glipiZIDE 5 MG Tablet GlipiZIDE [...] Duration: 10 07/15/2017 8 *Pick strength-form from [facility] for eRX* Doxycycline Hyclate 100 MG [...] Duration: 7 06/21/2021 2 *Pick strength-form from [employer] for eRX* Bromfed DM 2-30-10 MG/5ML Syrup [...] Oral three times daily; Duration: 30 05/21/2019 Vgkgwmhdol-LSXR-Vvurrvzg 50-325-40 MG Capsule Ubumhdvbkc-OLOV-Yzpbwypq 50-325-40MG, 1 (one) Capsule every 4-6 hours [...] dizziness; Duration: 0 09/06/2024 5 *Reorder from [facility] for eRx and Interaction Alerts* Bactrim DS 800-160MG Bactrim DS 800-160M G, 1 (one) Tablet two times daily # 10, 05/14/2021, No Refill. Inactive Oral two times daily; Duration: 5 05/14/2021 *Pick strength-form from [facility] for eRX* Progress Notes * Georgia SWANSONDOB:[birth year] (50 yo F)Acc No.[id number]:02/26/2025 Patient: [place] CHRISTIE Susana :1975 A ge:49 Y S ex:Female Address:[address] [place] [address], [id number] * Refills Stop Meclizine, 12.5mg, oral, 30, [...] needed for congestion and cough, 10 Stop Pxuwjdsalw-ZETH-Jtveqdyn Capsule, 50-325-40 MG, Oral, 15, Oogjydlvjt-DSLY-Esstunrg 50-325-40MG, 1 (one) Capsule every 4-6 hours [...] Solution Pen-injector, 100-33 UNT-MCG/ML, Subcutaneous, 1, Soliqua [id number], 10 units at bedtime daily for type [...] Inactive, as directed, 90 Stop Dexcom G5 Electric Utility Lineworker Kit, 1, Dexcom G5 Electric Utility Lineworker Kit , 1 (one) Device as directed # 1, 11/10/2020, Ref. x11. Inactive, as directed, 14 Stop FreeStyle Philip 2 Vance Device, - , 1, FreeStyle Philip 2 Vance , 1 (one) Device as directed # [...]
--- OUTSIDE RECORDS SUMMARY | 2025-02-27 03:00 | XMS_ITS ---
Author Organization [facility] are Address [address] [place] [address] Care Team Providers Care Family Specialist Name Role Phone MRS. Sunni Ramon Primary Care Provider [phone] Benedicto Talley MD Unavailable Unavailable Migration, Provider [...] every 12 weeks; Duration: 0 *Reorder from [facility] for eRx and Interaction Alerts* 11/04/2024 Active FreeStyle Philip 3 Sensor - Miscellaneous FreeStyle Philip 3 Sensor( miscellaneous every 14 days ) Active -Hx Entry miscellaneous every 14 days; Duration: 0 11/04/2024 Active Folic Acid Xtra Folic Acid Xtra( Ora l 1 (one) daily ) Active -Hx Entry Oral daily; Duration: 30 *Reorder from [facility] for eRx and Interaction Alerts* 04/27/2021 [...] other day; Duration: 30 *Pick strength-form from [facility] for eRX* 11/09/2019 Active PROzac 20 [...] prn wheezing; Duration: 30 *Pick strength-form from [facility] for eRX* 01/22/2024 Active ALPRAZolam 0.5 MG Tablet ALPRAZolam 0.5mg, 1 (one) tablet two times daily, as needed FOR PANIC ATTACHS # 20, 10/12/2024, No Refill. Active Oral two times daily, as needed FOR PANIC ATTACHS; Duration: 10 DX: PANIC ATTACkS [place] Controlled Substance Reporting Database reviewed and patient found to be in compliance with prescription. 10/12/2024 Active Nurtec ODT 75mg Nurtec ODT 75mg, 1 (one) Tablet daily at onset of migraine headache # 8, 01/09/2024, Ref. x2. Active oral daily at onset of migraine headache; Duration: 30 *Reorder from [facility] for eRx and Interaction Alerts* 01/09/2024 Active cyclobenzaprine 5mg cyclobenzaprine 5mg, 1 tablet Tablet at bedtime as needed for neck tension # 90, 11/04/2024, Ref. x1. Active oral at bedtime as needed for neck tension; Duration: 90 *Reorder from [facility] for eRx and Interaction Alerts* 11/04/2024 Active Ozempic 2 mg/dose(8 mg/3 mL Ozempic( 2 mg/dose(8 mg/3 mL subcutaneous 2 mg one weekly ) Active -Hx Entry subcutaneous one weekly; Duration: 0 *Reorder from [facility] for eRx and Interaction Alerts* 11/04/2024 Active cholecalciferol (vitamin D3) 50 mcg(2,000 uni cholecalciferol (vitamin D3) 50 mcg(2,000 uni, 1 (one) Tablet daily # 30, 11/20/2022, No Refill. Active oral daily; Duration: 30 *Reorder from [facility] for eRx and Interaction Alerts* 11/20/2022 Active atorvastatin 40mg atorvastatin 40mg, 1 (one) Tablet at bedtime for high cholesterol # 90, 09/13/2024, Ref. x1. Active oral at bedtime for high cholesterol; Duration: 90 *Reorder from [facility] for eRx and Interaction Alerts* 09/13/2024 Active [...] smoker Encounters Encounter Location Date Provider Diagnosis [facility] [address] [place] [address] 02/27/2025 Provider Migration Plan Of Treatment No Information Progress Notes * [place] ARAGONDOB:[birth year] (50 yo F)Acc No.[id number]:02/27/2025 Patient: [place] CHRISTIE :1975 A ge:49 Y S ex:Female Address:[address] [place] [id number] Subjective: * Chief Complaints: * E MR-Héctor [...] , Notes to Pharmacist: *Pick strength-form from [facility] for eRX*ALPRAZolam 0.5 MG Tablet ALPRAZolam 0.5mg, 1 (one) tablet two times daily, as needed FOR PANIC ATTACHS # 20, 10/12/2024, No Refill. Active Oral two times daily, as needed FOR PANIC ATTACHS , Notes to Pharmacist: DX: PANIC ATTACkS [place] Controlled Substance Reporting Database reviewed and patient found to be in compliance with prescription.Ferrous Sulfate 325 (65 Fe)MG Ferrous Sulfate 325 (65 Fe)MG, 1 tablet Tablet daily or every other day # 30, 11/09/2019, Ref. x2. Active Oral daily or every other day , Notes to Pharmacist: *Pick strength-form from [facility] for eRX*Ondansetron 4 MG Tablet Disintegrating ondansetron [...] daily , Notes to Pharmacist: *Reorder from [facility] for eRx and Interaction Alerts*Farxiga 10 MG [...] weeks , Notes to Pharmacist: *Reorder from [facility] for eRx and Interaction Alerts*atorvastatin 40mg atorvastatin 40mg, 1 (one) Tablet at bedtime for high cholesterol # 90, 09/13/2024, Ref. x1. Active oral at bedtime for high cholesterol , Notes to Pharmacist: *Reorder from [facility] for eRx and Interaction Alerts*cholecalciferol (vitamin D3) 50 mcg(2,000 uni cholecalciferol (vitamin D3) 50 mcg(2,000 uni, 1 (one) Tablet daily # 30, 11/20/2022, No Refill. Active oral daily , Notes to Pharmacist: *Reorder from [facility] for eRx and Interaction Alerts*cyclobenzaprine 5mg cyclobenzaprine 5mg, 1 tablet Tablet at bedtime as needed for neck tension # 90, 11/04/2024, Ref. x1. Active oral at bedtime as needed for neck tension , Notes to Pharmacist: *Reorder from [facility] for eRx and Interaction Alerts*Nurtec ODT 75mg Nurtec ODT 75mg, 1 (one) Tablet daily at onset of migraine headache # 8, 01/09/2024, Ref. x2. Active oral daily at onset of migraine headache , Notes to Pharmacist: *Reorder from [facility] for eRx and Interaction Alerts*Ozempic 2 mg/dose(8 mg/3 mL Ozempic( 2 mg/dose(8 mg/3 mL subcutaneous 2 mg one weekly ) Active -Hx Entry subcutaneous one weekly , Notes to Pharmacist: *Reorder from [facility] for eRx and Interaction Alerts*Taking Albuterol Sulfate 90mcg/actuat albuterol sulfate 90mcg/actuat, 2 Puff q 4 hours prn wheezing # 1, 01/22/2024, Ref. x2. Active inhalation q 4 hours prn wheezing , Notes to Pharmacist: *Pick strength-form from [facility] for eRX*Taking ALPRAZolam 0.5 MG Tablet ALPRAZolam 0.5mg, 1 (one) tablet two times daily, as needed FOR PANIC ATTACHS # 20, 10/12/2024, No Refill. Active Oral two times daily, as needed FOR PANIC ATTACHS , Notes to Pharmacist: DX: PANIC ATTACkS [place] Controlled Substance Reporting Database reviewed and patient found to be in compliance with prescription.Taking Ferrous Sulfate 325 (65 Fe)MG Ferrous Sulfate 325 (65 Fe)MG, 1 tablet Tablet daily or every other day # 30, 11/09/2019, Ref. x2. Active Oral daily or every other day , Notes to Pharmacist: *Pick strength-form from [facility] for eRX*Taking Ondansetron 4 MG Tablet [...] daily , Notes to Pharmacist: *Reorder from [facility] for eRx and Interaction Alerts*Taking Farxiga [...] weeks , Notes to Pharmacist: *Reorder from [facility] for eRx and Interaction Alerts*Taking atorvastatin 40mg atorvastatin 40mg, 1 (one) Tablet at bedtime for high cholesterol # 90, 09/13/2024, Ref. x1. Active oral at bedtime for high cholesterol , Notes to Pharmacist: *Reorder from [facility] for eRx and Interaction Alerts*Taking cholecalciferol (vitamin D3) 50 mcg(2,000 uni cholecalciferol (vitamin D3) 50 mcg(2,000 uni, 1 (one) Tablet daily # 30, 11/20/2022, No Refill. Active oral daily , Notes to Pharmacist: *Reorder from [facility] for eRx and Interaction Alerts*Taking cyclobenzaprine 5mg cyclobenzaprine 5mg, 1 tablet Tablet at bedtime as needed for neck tension # 90, 11/04/2024, Ref. x1. Active oral at bedtime as needed for neck tension , Notes to Pharmacist: *Reorder from [facility] for eRx and Interaction Alerts*Taking Nurtec ODT 75mg Nurtec ODT 75mg, 1 (one) Tablet daily at onset of migraine headache # 8, 01/09/2024, Ref. x2. Active oral daily at onset of migraine headache , Notes to Pharmacist: *Reorder from [facility] for eRx and Interaction Alerts*Taking Ozempic 2 mg/dose(8 mg/3 mL Ozempic( 2 mg/dose(8 mg/3 mL subcutaneous 2 mg one weekly ) Active -Hx Entry subcutaneous one weekly , Notes to Pharmacist: *Reorder from [facility] for eRx and Interaction Alerts* * Allergies: A llergies Reconciled: AllergyAzithromycin *CHEMICALS*: AllergyBanana (Diagnostic): AllergyBlueberry Flavor *PHARMACEUTICAL ADJUVANTS*: AllergyErythromycin: AllergyIodine *ANTISEPTICS & DISINFECTANTS*: AllergyLactase *DIETARY PRODUCTS/DIETARY MANAGEMENT PRODU: AllergyMontelukast Sodium *ANTIASTHMATIC AND BRONCHODILAT: AllergyPenicillins: AllergyRaspberry Flavor *PHARMACEUTICAL ADJUVANTS*: AllergyShellfish-derived Products: Allergy * * Date:
--- OUTSIDE RECORDS SUMMARY | 2025-03-05 03:00 | XMS_ITS ---
Author Organization [facility] Address [address] [place] [address] Care Team Providers Care Core Feeder Name Role Phone Benedicto Talley MD Unavailable Unavailable Migration, Provider Unavailable Unavailable REASON FOR VISIT EMR-Héctor Encounters Encounter Location Date Provider Diagnosis [facility] [address] [place] [address] 03/05/2025 Provider Migration Plan Of Treatment Medication Medication Name Sig Start Date Stop Date Notes Cetirizine HCl 10 MG Tablet Cetirizine HCl [...] Inactive Oral daily; Duration: 30 07/10/2019 0 Bromfed DM 30-2-10MG/5ML Bromfed DM 30-2-10MG/5ML, 10 Milliliter every 8 hours as needed for congestion and cough # 200, 07/17/2020, No Refill. Inactive Oral every 8 hours as needed for congestion and cough; Duration: 10 07/17/2020 1 *Reorder from [employer] for eRx and Interaction Alerts* Carafate 1 GM Tablet Carafate( 1GM Oral 1 (one) Tablet three times daily ) Inactive -Hx Entry Oral three times daily; Duration: 30 05/21/2019 Tmwsdggoge-ZPQQ-Iajpgxxm 50-325-40 MG Capsule Ruheflylvy-LBUX-Eerdfuye 50-325-40MG, 1 (one) Capsule every 4-6 hours as needed for migraine # 15, 03/29/2019, Ref. x1. Inactive Oral every 4-6 hours as needed for migraine; Duration: 30 03/29/2019 9 Cefdinir 300 MG Capsule Cefdinir 300MG, 1 (one) Capsule twice a day # 10, 05/09/2022, No Refill. Inactive Oral twice a day; Duration: 5 05/09/2022 2 Benzonatate 200MG Benzonatate 200MG, 1 (one) Capsule every 8 hours prn cough # 21, 06/21/2021, No Refill. Inactive Oral every 8 hours prn cough; Duration: 7 06/21/2021 2 *Pick strength-form from [employer] for eRX* promethazine 6.25mg/5 mL promethazine 6. 25mg/5 mL, 4 Milliliter every 6 hours as needed for nausea # 360, 07/24/2022, No Refill. Inactive oral every 6 hours as needed for nausea; Duration: 5 07/24/2022 3 *Reorder from [employer] for eRx and Interaction Alerts* tamsulosin 0.4mg tamsulosin 0.4mg, 1 (one) Capsule daily # 7, 04/03/2022, No Refill. Inactive oral daily; Duration: 7 04/03/2022 3 *Reorder from [employer] for eRx and Interaction Alerts* Acetaminophen-Codeine 300-30 MG Tablet acetaminophen-codeine( 300-30mg oral [...] dizziness; Duration: 0 09/06/2024 5 [facility] Bactrim DS 800-160MG Bactrim DS 800-160M G, 1 (one) Tablet two times daily # 10, 05/14/2021, No Refill. Inactive Oral two times daily; Duration: 5 05/14/2021 *Pick strength-form from [employer] for eRX* Ozempic 2 mg/dose(8 mg/3 mL Ozempic 2 mg/dose(8 mg/3 mL, 2 (two) milligram SQ once weekly # 9, 03/14/2023, No Refill. Inactive subcutaneous SQ once weekly; Duration: 90 03/14/2023 3 *Reorder from [employer] for eRx and Interaction Alerts* Lantus Solostar U-100 Insulin 100 unit/mL(3 mL) Lantus Solostar U-100 Insulin 100 unit/mL(3 mL), 20 units at bedtime # 10, 05/07/2024, Ref. x5. Inactive subcutaneous at bedtime; Duration: 30 05/07/2024 5 *Reorder from [employer] for eRx and Interaction Alerts* Ozempic 1 mg/dose(4 mg/3 mL Ozempic 1 mg/dose(4 mg/3 mL, 1 (one) mL weekly # 4, 05/07/2024, No Refill. Inactive subcutaneous weekly; Duration: 30 05/07/2024 5 *Reorder from [employer] for eRx and Interaction Alerts* Ozempic 0.25 mg or 0.5mg (2 mg/3 Ozempic 0.25 mg or 0.5mg (2 mg/3, 0.5 mg weekly # 3, 12/11/2023, No Refill. Inactive subcutaneous weekly; Duration: 28 12/11/2023 4 *Reorder from [facility] for eRx and Interaction Alerts* pravastatin 20mg pravastatin 20mg, 1 Tablet daily # 30, 09/12/2023, No Refill. Inactive oral daily; Duration: 30 09/12/2023 4 *Reorder from [facility] for eRx and Interaction Alerts* HumaLOG KwikPen Insulin 100unit/mL HumaLOG KwikPen Insulin 100unit/mL, 5 units subcutaneous three times a day with breakfast, lunch, and dinner # 5, 03/10/2024, Ref. x5. Inactive subcutaneous subcutaneous three times a day with breakfast, lunch, and dinner; Duration: 30 03/10/2024 4 *Reorder from [facility] for eRx and Interaction Alerts* cyclobenzaprine 5mg cyclobenzaprine 5mg, 1 (one) Tablet three times daily # 15, 04/03/2022, No Refill. Inactive oral three times daily; Duration: 5 04/03/2022 3 *Reorder from [facility] for eRx and Interaction Alerts* FreeStyle Philip 2 Sensor - Miscellaneous FreeStyle Philip 2 Sensor , 1 (one) sensor replace sensor every 14 days # 2, 03/13/2024, Ref. x5. Inactive miscellaneous replace sensor every 14 days; Duration: 28 03/13/2024 4 2 sensors per 28 days cholecalciferol (vitamin D3) 1,250 mcg(50,000 un cholecalciferol (vitamin D3) 1,250 mcg(50,000 un, 1 Capsule every week # 12, 03/11/2024, No Refill. Inactive oral every week; Duration: 84 03/11/2024 4 *Reorder from [facility] for eRx and Interaction Alerts* Ozempic (2 MG/DOSE) 8 MG/3ML Solution Pen-injector Ozempic (2 MG/DOSE)( 8MG/3ML Subcutaneous 2 (two) SQ once weekly ) Inactive -Hx Entry Subcutaneous SQ once weekly; Duration: 90 02/22/2022 Trelegy Ellipta 100-62.5-25 MCG/ACT Aerosol Powder Breath Activated Trelegy Ellipta 100-62.5-25mcg, 1 inhalation daily # 28, 03/10/2024, Ref. x1. Inactive Inhalation daily; Duration: 28 03/10/2024 5 Guardian Sensor (3) Guardian Sensor (3) , as directed # 90, 11/08/2020, Ref. x3. Inactive as directed; Duration: 90 11/08/2020 1 1YR SUPPLY BD Pen Needle Micro U/F 32G X 6 MM Miscellaneous BD Pen Needle Micro U/F , 1 (one) needle to be used with Lantus insulin pen daily # 100, 04/11/2021, Ref. x2. Inactive to be used with Lantus insulin pen daily; Duration: 100 04/11/2021 1 Src Refills: 100 Dexcom G5 Supervisor Sawing And Assembly Kit Dexcom G5 Receive r Kit , 1 (one) Device as directed # 1, 11/10/2020, Ref. x11. Inactive as directed; Duration: 14 11/10/2020 1 DX: UNCONTROLLED INSULLIN DEPENDENT DIABETES FreeStyle Philip 2 [place] - Device FreeStyle Philip 2 [place] , 1 (one) Device as directed # 1, 03/19/2021, No Refill. Inactive as directed; Duration: 30 03/19/2021 1 Dexcom G5 Mob/G4 Plat Sensor Dexcom G5 Mob/G4 Plat Sensor , 1 (one) SENSOR EVERY 2 WEEKS # 1, 11/10/2020, Ref. x6. Inactive EVERY 2 WEEKS; Duration: 14 11/10/2020 1 Accu-Chek Guide Accu-Chek Guide , 1 (one) Each check blood sugar three times daily # 1, 06/19/2020, Ref. x3. Inactive In Vitro check blood sugar three times daily; Duration: 06/19/2020 0 Bydureon BCise 2 MG/0.85ML Auto-injector Bydureon BCise 2MG/0.85ML, 1 (one) Auto-injector weekly # 4, 08/30/2020, Ref. x6. Inactive Subcutaneous weekly; Duration: 30 08/30/2020 1 Please void Bydureon Rx, Rx for B-Cise was sent instead Soliqua 100-33 UNT-MCG/ML Solution Pen-injector Soliqua 772-61PYA-DJF/ML, 10 units at bedtime daily for type 2 diabetes # 1, 09/04/2020, Ref. x3. Inactive Subcutaneous at bedtime daily for type 2 diabetes; Duration: 30 09/04/2020 1 + Complete Multi 0.267 & 373 MG Therapy Pack + Complete Multi 0.267 & 373MG, use as directed per instructions in pack # 1, 05/21/2019, No Refill. Inactive Oral use as directed per instructions in pack; Duration: 30 05/21/2019 0 metFORMIN HCl ER 500 MG Tablet Extended Release 24 Hour metFORMIN HCl ER 500MG, 1 (one) Tablet once daily in the morning after breakfast # 30, 06/14/2020, Ref. x5. Inactive Oral once daily in the morning after breakfast; Duration: 30 06/14/2020 0 Bydureon 2MG Bydureon 2MG, 2 (two ) mg once weekly # 4, 08/30/2020, Ref. x5. Inactive Subcutaneous once weekly; Duration: 30 08/30/2020 *Reorder from [employer] for eRx and Interaction Alerts* Breo Ellipta 100-25 MCG/ACT Aerosol Powder Breath Activated Breo Ellipta 100-25mcg/dose, 1 inhalation daily # 28, 12/11/2023, No Refill. Inactive Inhalation daily; Duration: 28 12/11/2023 4 Trulicity 1.5 MG/0.5ML Solution Auto-injector Trulicity 1.5mg/0.5 mL, 1 (one) mL once weekly # 2, 07/09/2023, Ref. x1. Inactive Subcutaneous once weekly; Duration: 28 07/09/2023 4 Weeks 1-4: 0.75mg once weekly Weeks 5-8: 1.5mg weekly Trulicity 0.75 MG/0.5ML Solution Auto-injector Trulicity 0.75mg/0.5 mL, 1 (one) Solution Pen-injector once weekly for 4 weeks # 2, 07/09/2023, No Refill. Inactive Subcutaneous once weekly for 4 weeks; Duration: 30 07/09/2023 4 Vimovo 500-20 MG Tablet Delayed Release Vimovo 500-20MG, 1 (one) Tablet two times daily as needed # 60, 06/14/2019, Ref. x6. Inactive Oral two times daily as needed; Duration: 30 06/14/2019 0 Dulera 100-5 MCG/ACT Aerosol Dulera 100-5mcg/actuat, 2 puffs 2 times per day # 13, 12/23/2023, Ref. x5. Inactive Inhalation 2 times per day; Duration: 30 12/23/2023 4 Lyndsey Allergy 180MG Lyndsey Allergy 18 0MG, 1 (one) Tablet daily # 30, 10/28/2018, Ref. x6. Inactive Oral daily; Duration: 30 10/28/2018 9 *Pick strength-form from [employer] for eRX* BD Pen Needle Hazel U/F 32G X 4 MM Miscellaneous BD Pen Needle Hazel U/F , 1 (one) Pen needle four times daily with meal time insulin 3x/day and basal insulin at bedtime # 120, 10/13/2020, Ref. x3. Inactive four times daily with meal time insulin 3x/day and basal insulin at bedtime; Duration: 30 10/13/2020 1 Src Refills: 120 B-6 100MG B-6( 100MG Oral 1 da geoff ) Inactive -Hx Entry Oral daily; Duration: 0 12/24/2020 *Pick strength-form from [employer] for eRX* Voltaren 1% Voltaren 1%, 2 (two) gram Apply to the affected joint(s) twice daily as needed for pain # 100, 08/11/2020, No Refill. Inactive External Apply to the affected joint(s) twice daily as needed for pain; Duration: 10 08/11/2020 1 *Pick strength-form from [employer] for eRX* Zoloft 50MG Zoloft 50MG, 1 (one) Tablet daily # 90, 07/10/2019, Ref. x3. Inactive Oral daily; Duration: 90 07/10/2019 0 *Pick strength-form from [employer] for eRX* Zofran 4MG Zofran( 4MG Oral 1 d aily ) Inactive -Hx Entry Oral daily; Duration: 0 07/06/2019 *Reorder from [employer] for eRx and Interaction Alerts* ZyrTEC-D Allergy & Congestion 5-120MG ZyrTEC-D Allergy & Congestion 5-120MG, 1 (one) Tablet daily # 20, 08/11/2018, No Refill. Inactive Oral daily; Duration: 20 08/11/2018 9 *Pick strength-form from [employer] for eRX* Vitamin B 12 500MCG Vitamin B 12( 500MCG Oral 1 tablet daily ) Inactive -Hx Entry Oral daily; Duration: 0 12/08/2020 *Pick strength-form from [employer] for eRX* traMADol HCl 50 MG Tablet TraMADol HCl 5 0MG, # 0, 07/22/2018, No Refill. Inactive Oral; Duration: 0 07/22/2018 9 Topamax 50 MG Tablet Topamax 50MG, 1 (on e) Tablet daily # 30, 05/21/2019, No Refill. Inactive Oral daily; Duration: 30 05/21/2019 0 Vitamin B Complex - Tablet Vitamin B Complex( Oral 1 tablet daily ) Inactive -Hx Entry Oral daily; Duration: 0 07/05/2019 Ventolin HFA 108 (90 Base) MCG/ACT Aerosol Solution Ventolin HFA 108 (90 Base)MCG/ACT, 2 puffs every 4 hours PRN, 09/21/2018, No Refill. Inactive Inhalation every 4 hours PRN; Duration: 0 09/21/2018 9 Vitamin D3 50 MCG (2000 UT) Tablet Vitamin D3 50 MCG(2000 UT), 1 (one) Tablet daily # 30, 05/21/2019, No Refill. Inactive Oral daily; Duration: 30 05/21/2019 1 Provera 10 MG Tablet Provera( 10MG Oral 1 daily ) Inactive -Hx Entry Oral daily; Duration: 0 12/08/2020 Protonix 40 MG Tablet Delayed Release Protonix( 40MG Oral 1 daily ) Inactive -Hx Entry Oral daily; Duration: 0 08/18/2019 Simvastatin 20 MG Tablet Simvastatin( 20 MG Oral 1 tablet daily ) Inactive -Hx Entry Oral daily; Duration: 0 07/16/2018 Symbicort 160-4.5 MCG/ACT Aerosol Symbicort 160-4.5MCG/ACT, 2 puffs Puff daily # 1, 08/29/2021, No Refill. Inactive Inhalation daily; Duration: 30 08/29/2021 2 Sucralfate 1 GM/10ML Suspension Sucralfate 1GM/10ML, 10 [...] told otherwise by GI Src Refills: 280 predniSONE 50 MG Tablet predniSONE 50MG, 1 (one) Tablet daily # 5, 06/21/2021, No Refill. Inactive Oral daily; Duration: 5 06/21/2021 2 Prevacid 30 MG Capsule Delayed Release Prevacid( 30MG Oral 1 (one) Capsule three times daily ) Inactive -Hx Entry Oral three times daily; Duration: 30 05/21/2019 27-0.8 MG Tablet 27-0. 8MG, 1 (one) Tablet daily # 90, 06/20/2020, Ref. x1. Inactive Oral daily; Duration: 90 06/20/2020 1 Promethazine HCl 25 MG Tablet Promethazine HCl [...] wheezing; Duration: 30 11/21/2020 1 *Reorder from [employer] for eRx and Interaction Alerts* Phentermine HCl 37.5 MG Tablet Phentermine HCl 37.5MG, 1 (one) Tablet daily # 30, 12/13/2019, No Refill. Inactive Oral daily; Duration: 30 12/13/2019 Ondansetron HCl 4 MG Tablet Ondansetron HCl [...] needed for nausea; Duration: 7 09/22/2020 1 Phenazopyridine HCl 200MG Phenazopyridin e HCl 200MG, 1 (one) Tablet three times daily as needed for urinary symptoms # 21, 01/04/2019, Ref. x2. Inactive Oral three times daily as needed for urinary symptoms; Duration: 7 01/04/2019 9 *Pick strength-form from [employer] for eRX* Phentermine HCl 37.5 MG Capsule Phentermine HCl 37.5MG, 1 (one) Capsule daily # 30, 03/01/2019, No Refill. Inactive Oral daily; Duration: 30 03/01/2019 9 metroNIDAZOLE 500 MG Tablet MetroNIDAZOLE 500MG, 1 (one) Tablet three times daily # 30, 03/23/2018, No Refill. Inactive Oral three times daily; Duration: 10 03/23/2018 8 Nitrofurantoin Monohyd Macro 100 MG Capsule Nitrofurantoin Monohyd Macro 100MG, 1 (one) Capsule two times daily # 14, 12/25/2018, No Refill. Inactive Oral two times daily; Duration: 7 12/25/2018 9 Nitrofurantoin 100MG Nitrofurantoin( 100 MG Oral 2 daily ) Inactive -Hx Entry Oral daily; Duration: 0 07/05/2019 *Pick strength-form from [employer] for eRX* Omeprazole 20 MG Capsule Delayed Release Omeprazole 20MG, 1 (one) Capsule in the morning # 90, 10/29/2018, Ref. x1. Inactive Oral in the morning; Duration: 90 10/29/2018 0 Nortriptyline HCl 25 MG Capsule Nortriptyline HCl 25MG, 1 Capsule at bedtime # 90, 04/10/2019, Ref. x3. Inactive Oral at bedtime; Duration: 90 04/10/2019 0 medroxyPROGESTERone Acetate 10 MG Tablet medroxyPROGESTERone Acetate 10MG, 2 (two) Tablet three times daily for abnormal bleeding # 42, 10/02/2021, No Refill. Inactive Oral three times daily for abnormal bleeding; Duration: 7 10/02/2021 2 Lisinopril 10 MG Tablet lisinopriL 10mg, 1 Tablet daily # 90, 09/22/2024, Ref. x1. Inactive Oral daily; Duration: 90 09/22/2024 5 Lyrica 50 MG Capsule Lyrica 50MG, 1 (one ) Capsule two times daily # 60, 06/13/2021, No Refill. Inactive Oral two times daily; Duration: 30 06/13/2021 2 LORazepam 0.5 MG Tablet LORazepam 0.5MG, 1 (one) Tablet Tablet po at onset of seizure # 30, 10/25/2019, No Refill. Inactive Oral po at onset of seizure; Duration: 30 10/25/2019 0 Maxalt 10 MG Tablet Maxalt 10MG, 1 table t daily, 09/27/2018, No Refill. Inactive Oral daily; Duration: 0 09/27/2018 9 glipiZIDE 5 MG Tablet GlipiZIDE 5MG, 1 t ablet two times daily, 09/13/2018, No Refill. Inactive Oral two times daily; Duration: 0 09/13/2018 9 Lasix 20 MG Tablet Lasix 20MG, 1 (one) Tablet take 1 daily # 90, 06/07/2022, No Refill. Inactive Oral take 1 daily; Duration: 30 06/07/2022 3 HumaLOG KwikPen 100 UNIT/ML Solution Pen-injector HumaLOG KwikPen 100UNIT/ML, 5 units 2-3 times a day with meals # 1, 11/06/2020, Ref. x5. Inactive Subcutaneous 2-3 times a day with meals; Duration: 30 11/06/2020 1 Lisinopril 5 MG Tablet Lisinopril 5MG, 1 tablet daily, 09/13/2018, No Refill. Inactive Oral daily; Duration: 0 09/13/2018 9 Lidocaine Viscous 2% Lidocaine Viscous 2 %, 10 Milliliter gargle and swallow every 3 hours as needed before eating # 240, 07/02/2018, No Refill. Inactive Mouth/Throat gargle and swallow every 3 hours as needed before eating; Duration: 3 07/02/2018 9 *Reorder from [employer] for eRx and Interaction Alerts* Fluconazole 150 MG Tablet Fluconazole 15 0MG, 1 (one) Tablet one time dose, repeat in 72 hours as needed for yeast infection # 3, 03/19/2021, Ref. x1. Inactive Oral one time dose, repeat in 72 hours as needed for yeast infection; Duration: 9 03/19/2021 1 Flomax 0.4MG Flomax 0.4MG, 1 (one ) Capsule daily as needed for kidney stones # 30, 02/10/2020, Ref. x1. Inactive Oral daily as needed for kidney stones; Duration: 30 02/10/2020 0 *Reorder from [employer] for eRx and Interaction Alerts* Furosemide 20mg furosemide 20mg, 1 ( one) Tablet once daily # 30, 06/07/2022, Ref. x5. Inactive oral once daily; Duration: 30 06/07/2022 4 *Pick strength-form from [facility] for eRX* Folic Acid 400MCG Folic Acid( 400MCG O ral 1 tablet daily ) Inactive -Hx Entry Oral daily; Duration: 0 12/08/2020 *Pick strength-form from [facility] for eRX* Gabapentin 300mg gabapentin( 300mg or al 1 three times daily ) Inactive -Hx Entry oral three times daily; Duration: 0 10/02/2024 5 *Pick strength-form from [employer] for eRX* Dicyclomine HCl 20 MG Tablet Dicyclomine HCl 20MG, 1 (one) Tablet four times daily, as needed for cramping # 20, 07/31/2018, No Refill. Inactive Oral four times daily, as needed for cramping; Duration: 5 07/31/2018 9 Doxycycline Hyclate 100MG Doxycycline Hy clate 100MG, 1 (one) Capsule two times daily # 14, 11/21/2020, No Refill. Inactive Oral two times daily; Duration: 7 11/21/2020 1 *Pick strength-form from [employer] for eRX* Progress Notes * Georgia ARAGON SusanaDOB:[birth year] (50 yo F)Acc No.[id number]:03/05/2025 Patient: [place] CHRISTIE :1975 A ge:49 Y S ex:Female Address:[address] [place] [id number] * Refills Stop Meclizine, 12.5mg, oral, 30, [...] 8 hours prn cough, 7 Stop Bromfed DM, 30-2-10MG/5ML, Oral, 200, Bromfed DM 30-2-10MG/5ML, 10 Milliliter every 8 hours as needed for congestion and cough # 200, 07/17/2020, No Refill. Inactive, every 8 hours as needed for congestion and cough, 10 Stop Jjvzqvjalj-HSER-Xnijhcan Capsule, 50-325-40 MG, Oral, 15, Aeekfxenpg-ZQGL-Zztqlzzj 50-325-40MG, 1 (one) Capsule every 4-6 hours [...] No Refill. Inactive, b.i.d., 10 Stop Doxycycline Hyclate, 100MG, Oral, 14, Doxycycline Hyclate 100MG, 1 (one) Capsule two times daily # 14, 11/21/2020, No Refill. Inactive, two times daily, 7 Stop Flomax, 0.4MG, Oral, Flomax( 0.4MG Oral 1 daily ) Inactive -Hx Entry, daily, 0 Stop Flomax, 0.4MG, Oral, 30, Flomax 0.4MG, 1 (one) Capsule [...] ) Inactive -Hx Entry, daily, 0 Stop Furosemide, 20mg, oral, 30, furosemide 20mg, 1 (one) Tablet once [...] po at onset of seizure, 30 Stop Lyrica Capsule, 50 MG, Oral, 60, Lyrica 50MG, 1 (one) Capsule [...] Refill. Inactive, daily, 28 Stop Trulicity Solution Auto-injector, 0.75 MG/0.5ML, Subcutaneous, 2, Trulicity 0.75mg/0.5 mL, 1 (one) Solution Pen-injector once weekly for 4 weeks # 2, 07/09/2023, No Refill. Inactive, once weekly for 4 weeks, 30 Stop Trulicity Solution Auto-injector, 1.5 MG/0.5ML, Subcutaneous, 2, Trulicity 1.5mg/0.5 mL, 1 (one) mL once weekly # 2, 07/09/2023, Ref. x1. Inactive, once weekly, 28 Stop + Complete Multi Therapy Pack, 0.267 & 373 MG, Oral, 1, + Complete Multi 0.267 & 373MG, use as directed per instructions in pack # 1, 05/21/2019, No Refill. Inactive, use as directed per instructions in pack, 30 Stop Soliqua Solution Pen-injector, 100-33 UNT-MCG/ML, Subcutaneous, 1, Soliqua [id number], 10 units at bedtime daily for type 2 diabetes # 1, 09/04/2020, Ref. x3. Inactive, at bedtime daily for type 2 diabetes, 30 Stop Accu-Chek Guide, In Vitro, 1, Accu-Chek Guide , 1 (one) Each check blood sugar three times daily # 1, 06/19/2020, Ref. x3. Inactive, check blood sugar three times daily, 90 Stop Dexcom G5 Mob/G4 Plat Sensor, 1, [...] Inactive, as directed, 90 Stop Dexcom G5 Supervisor Sawing And Assembly Kit, 1, Dexcom G5 Supervisor Sawing And Assembly Kit , 1 (one) Device as directed # 1, 11/10/2020, Ref. x11. Inactive, as directed, 14 Stop FreeStyle Philip 2 [place] Device, - , 1, FreeStyle Philip 2 [place] , 1 (one) Device as directed # [...] 05/07/2024, No Refill. Inactive, weekly, 30 Stop pravastatin, 20mg, oral, 30, pravastatin 20mg, 1 Tablet [...]
--- OUTSIDE RECORDS SUMMARY | 2025-03-06 03:00 | XMS_ITS ---
Author Organization [facility] [place] Address [address] [place] [address] Care Team Providers Care Package Center Supervisor Name Role Phone Benedicto Talley MD [...] Entry Oral daily; Duration: 30 *Reorder from [employer] for eRx and Interaction Alerts* 04/27/2021 Active [...] prn wheezing; Duration: 30 *Pick strength-form from [employer] for eRX* 01/22/2024 Active Ondansetron 4 MG [...] other day; Duration: 30 *Pick strength-form from [employer] for eRX* 11/09/2019 Active Ozempic 2 mg/dose(8 mg/3 mL Ozempic( 2 mg/dose(8 mg/3 mL subcutaneous 2 mg one weekly ) Active -Hx Entry subcutaneous one weekly; Duration: 0 *Reorder from [facility] for eRx and Interaction Alerts* 11/04/2024 Active atorvastatin 40mg atorvastatin 40mg, 1 (one) Tablet at bedtime for high cholesterol # 90, 09/13/2024, Ref. x1. Active oral at bedtime for high cholesterol; Duration: 90 *Reorder from [facility] for eRx and Interaction Alerts* 09/13/2024 Active Ajovy Autoinjector 225mg/1.5 mL Ajovy Autoinjector( 225mg/1.5 mL subcutaneous 1 every 12 weeks ) Active -Hx Entry subcutaneous every 12 weeks; Duration: 0 *Reorder from [facility] for eRx and Interaction Alerts* 11/04/2024 Active cyclobenzaprine 5mg cyclobenzaprine 5mg, 1 tablet Tablet at bedtime as needed for neck tension # 90, 11/04/2024, Ref. x1. Active oral at bedtime as needed for neck tension; Duration: 90 *Reorder from [facility] for eRx and Interaction Alerts* 11/04/2024 Active cholecalciferol (vitamin D3) 50 mcg(2,000 uni cholecalciferol (vitamin D3) 50 mcg(2,000 uni, 1 (one) Tablet daily # 30, 11/20/2022, No Refill. Active oral daily; Duration: 30 *Reorder from [facility] for eRx and Interaction Alerts* 11/20/2022 Active Nurtec ODT 75mg Nurtec ODT 75mg, 1 (one) Tablet daily at onset of migraine headache # 8, 01/09/2024, Ref. x2. Active oral daily at onset of migraine headache; Duration: 30 *Reorder from [facility] for eRx and Interaction Alerts* 01/09/2024 Active [...] [facility] [address] [place] [address] 03/06/2025 Provider Migration Plan Of Treatment No Information Progress Notes * Georgia SWANSON JDOB:[birth year] (50 yo F)Acc No.[id number]:03/06/2025 Patient: Georgia CHRISTIE :1975 A ge:49 Y S ex:Female Address:[address] [place] [id number] Subjective: * Chief Complaints: * E MR-Héctor [...] , Notes to Pharmacist: *Pick strength-form from [employer] for eRX*ALPRAZolam 0.5 MG Tablet ALPRAZolam 0.5mg, [...] , Notes to Pharmacist: *Pick strength-form from [employer] for eRX*Ondansetron 4 MG Tablet Disintegrating ondansetron [...] daily , Notes to Pharmacist: *Reorder from [employer] for eRx and Interaction Alerts*Farxiga 10 MG [...] weeks , Notes to Pharmacist: *Reorder from [employer] for eRx and Interaction Alerts*atorvastatin 40mg atorvastatin 40mg, 1 (one) Tablet at bedtime for high cholesterol # 90, 09/13/2024, Ref. x1. Active oral at bedtime for high cholesterol , Notes to Pharmacist: *Reorder from [facility] for eRx and Interaction Alerts*cholecalciferol (vitamin D3) 50 mcg(2,000 uni cholecalciferol (vitamin D3) 50 mcg(2,000 uni, 1 (one) Tablet daily # 30, 11/20/2022, No Refill. Active oral daily , Notes to Pharmacist: *Reorder from [facility] for eRx and Interaction Alerts*cyclobenzaprine 5mg cyclobenzaprine 5mg, 1 tablet Tablet at bedtime as needed for neck tension # 90, 11/04/2024, Ref. x1. Active oral at bedtime as needed for neck tension , Notes to Pharmacist: *Reorder from [facility] for eRx and Interaction Alerts*Nurtec ODT 75mg Nurtec ODT 75mg, 1 (one) Tablet daily at onset of migraine headache # 8, 01/09/2024, Ref. x2. Active oral daily at onset of migraine headache , Notes to Pharmacist: *Reorder from [facility] for eRx and Interaction Alerts*Ozempic 2 mg/dose(8 mg/3 mL Ozempic( 2 mg/dose(8 mg/3 mL subcutaneous 2 mg one weekly ) Active -Hx Entry subcutaneous one weekly , Notes to Pharmacist: *Reorder from [facility] for eRx and Interaction Alerts*Taking Albuterol Sulfate 90mcg/actuat albuterol sulfate 90mcg/actuat, 2 Puff q 4 hours prn wheezing # 1, 01/22/2024, Ref. x2. Active inhalation q 4 hours prn wheezing , Notes to Pharmacist: *Pick strength-form from [facility] for eRX*Taking ALPRAZolam 0.5 MG Tablet ALPRAZolam [...] , Notes to Pharmacist: *Pick strength-form from [facility] for eRX*Taking Ondansetron 4 MG Tablet Disintegrating [...] daily , Notes to Pharmacist: *Reorder from [facility] for eRx and Interaction Alerts*Taking Farxiga 10 [...] weeks , Notes to Pharmacist: *Reorder from [facility] for eRx and Interaction Alerts*Taking atorvastatin 40mg atorvastatin 40mg, 1 (one) Tablet at bedtime for high cholesterol # 90, 09/13/2024, Ref. x1. Active oral at bedtime for high cholesterol , Notes to Pharmacist: *Reorder from [facility] for eRx and Interaction Alerts*Taking cholecalciferol (vitamin D3) 50 mcg(2,000 uni cholecalciferol (vitamin D3) 50 mcg(2,000 uni, 1 (one) Tablet daily # 30, 11/20/2022, No Refill. Active oral daily , Notes to Pharmacist: *Reorder from [facility] for eRx and Interaction Alerts*Taking cyclobenzaprine 5mg cyclobenzaprine 5mg, 1 tablet Tablet at bedtime as needed for neck tension # 90, 11/04/2024, Ref. x1. Active oral at bedtime as needed for neck tension , Notes to Pharmacist: *Reorder from [facility] for eRx and Interaction Alerts*Taking Nurtec ODT 75mg Nurtec ODT 75mg, 1 (one) Tablet daily at onset of migraine headache # 8, 01/09/2024, Ref. x2. Active oral daily at onset of migraine headache , Notes to Pharmacist: *Reorder from [facility] for eRx and Interaction Alerts*Taking Ozempic 2 mg/dose(8 mg/3 mL Ozempic( 2 mg/dose(8 mg/3 mL subcutaneous 2 mg one weekly ) Active -Hx Entry subcutaneous one weekly , Notes to Pharmacist: *Reorder from [facility] for eRx and Interaction Alerts* * Allergies: A llergies Reconciled: AllergyAzithromycin *CHEMICALS*: AllergyBanana (Diagnostic) *DIAGNOSTIC PRODUCTS*: AllergyBlueberry Flavor *PHARMACEUTICAL ADJUVANTS*: AllergyErythromycins: AllergyIodine *ANTISEPTICS & DISINFECTANTS*: AllergyLactase *DIETARY PRODUCTS/DIETARY MANAGEMENT PRODU: AllergyMontelukast Sodium *ANTIASTHMATIC AND BRONCHODILAT: AllergyPenicillins: AllergyRaspberry Flavor *PHARMACEUTICAL ADJUVANTS*: AllergyShellfish: Allergy * * Date:
--- OUTSIDE RECORDS SUMMARY | 2025-05-14 03:00 | XMS_ITS ---
Author Organization [facility] are Address [address] [place] [address] Care Team Providers Care Associate Loan Officer Name Role Phone MRS. Sunni Ramon Primary Care Provider Benedicto Talley MD Unavailable Unavailable Migration, Provider Unavailable Unavailable REASON FOR VISIT EMR-[facility] Encounters Encounter Location Date Provider Diagnosis [facility] [address] [place] [address] 05/14/2025 Provider Migration Plan Of Treatment Medication [...] eating; Duration: 3 07/02/2018 9 *Reorder from [facility] for eRx and Interaction Alerts* Lisinopril 5 [...] daily; Duration: 0 12/08/2020 *Pick strength-form from [facility] for eRX* Furosemide 20mg furosemide 20mg, 1 ( one) Tablet once daily # 30, 06/07/2022, Ref. x5. Inactive oral once daily; Duration: 30 06/07/2022 4 *Pick strength-form from [facility] for eRX* Gabapentin 300mg gabapentin( 300mg or al 1 three times daily ) Inactive -Hx Entry oral three times daily; Duration: 0 10/02/2024 5 *Pick strength-form from [facility] for eRX* Depakote 500 MG Tablet Delayed [...] Duration: 7 11/21/2020 1 *Pick strength-form from [facility] for eRX* Flomax 0.4MG Flomax 0.4MG, 1 (one ) Capsule daily as needed for kidney stones # 30, 02/10/2020, Ref. x1. Inactive Oral daily as needed for kidney stones; Duration: 30 02/10/2020 0 *Reorder from [facility] for eRx and Interaction Alerts* Cyclobenzaprine HCl [...] daily; Duration: 5 05/14/2021 *Pick strength-form from [facility] for eRX* Benzonatate 200MG Benzonatate 200MG, 1 (one) Capsule every 8 hours prn cough # 21, 06/21/2021, No Refill. Inactive Oral every 8 hours prn cough; Duration: 7 06/21/2021 2 *Pick strength-form from [employer] for eRX* Bromfed DM 30-2-10MG/5ML Bromfed DM 30-2-10MG/5ML, 10 Milliliter every 8 hours as needed for congestion and cough # 200, 07/17/2020, No Refill. Inactive Oral every 8 hours as needed for congestion and cough; Duration: 10 07/17/2020 1 *Reorder from [facility] for eRx and Interaction Alerts* Lhbybjpbvr-XCTZ-Kroqldcv 50-325-40 MG Capsule Vylbgbcsav-ICFW-Qmdzglya 50-325-40MG, 1 (one) Capsule every 4-6 hours [...] weekly; Duration: 30 05/07/2024 5 *Reorder from [facility] for eRx and Interaction Alerts* Pravastatin 20mg pravastatin 20mg, 1 Tablet daily # 30, 09/12/2023, No Refill. Inactive oral daily; Duration: 30 09/12/2023 4 *Reorder from [facility] for eRx and Interaction Alerts* promethazine 6.25mg/5 mL promethazine 6. 25mg/5 mL, 4 Milliliter every 6 hours as needed for nausea # 360, 07/24/2022, No Refill. Inactive oral every 6 hours as needed for nausea; Duration: 5 07/24/2022 3 *Reorder from [facility] for eRx and Interaction Alerts* tamsulosin 0.4mg tamsulosin 0.4mg, 1 (one) Capsule daily # 7, 04/03/2022, No Refill. Inactive oral daily; Duration: 7 04/03/2022 3 *Reorder from [facility] for eRx and Interaction Alerts* Meclizine 12.5mg meclizine 12.5mg, 1 Tablet 2 to 3 times per day as needed for dizziness # 30, 09/06/2024, No Refill. Inactive oral 2 to 3 times per day as needed for dizziness; Duration: 0 09/06/2024 5 *Reorder from [facility] for eRx and Interaction Alerts* HumaLOG KwikPen Insulin 100unit/mL HumaLOG KwikPen Insulin 100unit/mL, 5 units subcutaneous three times a day with breakfast, lunch, and dinner # 5, 03/10/2024, Ref. x5. Inactive subcutaneous subcutaneous three times a day with breakfast, lunch, and dinner; Duration: 30 03/10/2024 4 *Reorder from [facility] for eRx and Interaction Alerts* Lantus Solostar U-100 Insulin 100 unit/mL(3 mL) Lantus Solostar U-100 Insulin 100 unit/mL(3 mL), 20 units at bedtime # 10, 05/07/2024, Ref. x5. Inactive subcutaneous at bedtime; Duration: 30 05/07/2024 5 *Reorder from [facility] for eRx and Interaction Alerts* Ozempic 2 mg/dose(8 mg/3 mL Ozempic 2 mg/dose(8 mg/3 mL, 2 (two) milligram SQ once weekly # 9, 03/14/2023, No Refill. Inactive subcutaneous SQ once weekly; Duration: 90 03/14/2023 3 *Reorder from [facility] for eRx and Interaction Alerts* Ozempic 0.25 mg or 0.5mg (2 mg/3 Ozempic 0.25 mg or 0.5mg (2 mg/3, 0.5 mg weekly # 3, 12/11/2023, No Refill. Inactive subcutaneous weekly; Duration: 28 12/11/2023 4 *Reorder from [facility] for eRx and Interaction Alerts* cyclobenzaprine 5mg cyclobenzaprine 5mg, 1 (one) Tablet three times daily # 15, 04/03/2022, No Refill. Inactive oral three times daily; Duration: 5 04/03/2022 3 *Reorder from [facility] for eRx and Interaction Alerts* Dexcom G5 Virtual Reality Specialist Kit Dexcom G5 Receive r Kit , 1 (one) Device as directed # 1, 11/10/2020, Ref. x11. Inactive as directed; Duration: 14 11/10/2020 1 DX: UNCONTROLLED INSULLIN DEPENDENT DIABETES FreeStyle Philip 2 [place] - Device FreeStyle Philip 2 [place] , 1 (one) Device as directed # [...] week; Duration: 84 03/11/2024 4 *Reorder from [facility] for eRx and Interaction Alerts* Dexcom G5 [...] for B-Cise was sent instead *Reorder from [facility] for eRx and Interaction Alerts* Trelegy Ellipta 100-62.5-25 MCG/ACT Aerosol Powder Breath Activated Trelegy Ellipta 100-62.5-25mcg, 1 inhalation daily # 28, 03/10/2024, Ref. x1. Inactive Inhalation daily; Duration: 28 03/10/2024 5 BD Pen Needle Micro U/F BD Pen Needle Mi bush and vine fruit crop farmer U/F , 1 (one) needle to be [...] 0 Soliqua 100-33 UNT-MCG/ML Solution Pen-injector Soliqua [id number]-OZE/ML, 10 units at bedtime daily for type [...] Duration: 30 10/28/2018 9 *Pick strength-form from [facility] for eRX* Bydureon 2MG Bydureon 2MG, 2 (two ) mg once weekly # 4, 08/30/2020, Ref. x5. Inactive Subcutaneous once weekly; Duration: 30 08/30/2020 *Reorder from [facility] for eRx and Interaction Alerts* metFORMIN HCl [...] needed; Duration: 30 06/14/2019 0 *Reorder from [facility] for eRx and Interaction Alerts* ZyrTEC-D Allergy & Congestion 5-120MG ZyrTEC-D Allergy & Congestion 5-120MG, 1 (one) Tablet daily # 20, 08/11/2018, No Refill. Inactive Oral daily; Duration: 20 08/11/2018 9 *Pick strength-form from [facility] for eRX* Vitamin B 12 500MCG Vitamin B 12( 500MCG Oral 1 tablet daily ) Inactive -Hx Entry Oral daily; Duration: 0 12/08/2020 *Pick strength-form from [facility] for eRX* B-6 100MG B-6( 100MG Oral 1 da geoff ) Inactive -Hx Entry Oral daily; Duration: 0 12/24/2020 *Pick strength-form from [facility] for eRX* Dulera 100-5 MCG/ACT Aerosol Dulera [...] Duration: 10 08/11/2020 1 *Pick strength-form from [facility] for eRX* Zofran 4MG Zofran( 4MG Oral 1 d aily ) Inactive -Hx Entry Oral daily; Duration: 0 07/06/2019 *Reorder from [facility] for eRx and Interaction Alerts* Zoloft 50 [...] Duration: 0 07/22/2018 9 *Pick strength-form from [facility] for eRX* Ventolin HFA 108 (90 Base) [...] wheezing; Duration: 30 11/21/2020 1 *Reorder from [facility] for eRx and Interaction Alerts* Promethazine HCl [...] daily; Duration: 0 07/16/2018 *Pick strength-form from [facility] for eRX* Phentermine HCl 37.5 MG Tablet [...] Notes * SWANSONGeorgiaDOB:[birth year] (50 yo F)Acc No.[id number]:05/14/2025 Patient: [place] CHRISTIE :1975 A ge:49 Y S ex:Female Address:[address] [place] [address] * Refills Stop Meclizine, 12.5mg, oral, 30, [...] needed for congestion and cough, 10 Stop Vevkkttvlc-KMJN-Ehbcqvxm Capsule, 50-325-40 MG, Oral, 15, Ekiuhdsvzc-RZLK-Njjjcgix 50-325-40MG, 1 (one) Capsule every 4-6 hours [...] Solution Pen-injector, 100-33 UNT-MCG/ML, Subcutaneous, 1, Soliqua [id number]-ZYL/ML, 10 units at bedtime daily for type [...] Inactive, as directed, 90 Stop Dexcom G5 Virtual Reality Specialist Kit, 1, Dexcom G5 Virtual Reality Specialist Kit , 1 (one) Device as directed # 1, 11/10/2020, Ref. x11. Inactive, as directed, 14 Stop FreeStyle Philip 2 [place] Device, - , 1, FreeStyle Philip 2 [place] , 1 (one) Device as directed # [...]
--- OUTSIDE RECORDS SUMMARY | 2025-05-15 03:00 | XMS_ITS ---
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 Sunni Ramon [...] tension; Duration: 90 *Reorder from [facility] for eRx and Interaction Alerts* 11/04/2024 Active cholecalciferol (vitamin D3) 50 mcg(2,000 uni cholecalciferol (vitamin D3) 50 mcg(2,000 uni, 1 (one) Tablet daily # 30, 11/20/2022, No Refill. Active oral daily; Duration: 30 *Reorder from [facility] for eRx and Interaction Alerts* 11/20/2022 Active Ozempic 2 mg/dose(8 mg/3 mL Ozempic( 2 mg/dose(8 mg/3 mL subcutaneous 2 mg one weekly ) Active -Hx Entry subcutaneous one weekly; Duration: 0 *Reorder from [facility] for eRx and Interaction Alerts* 11/04/2024 Active Nurtec ODT 75mg Nurtec ODT 75mg, 1 (one) Tablet daily at onset of migraine headache # 8, 01/09/2024, Ref. x2. Active oral daily at onset of migraine headache; Duration: 30 *Reorder from [facility] for eRx and Interaction Alerts* 01/09/2024 Active atorvastatin 40mg atorvastatin 40mg, 1 (one) Tablet at bedtime for high cholesterol # 90, 09/13/2024, Ref. x1. Active oral at bedtime for high cholesterol; Duration: 90 *Reorder from [facility] for eRx and Interaction Alerts* 09/13/2024 Active [...] daily; Duration: 30 *Reorder from [facility] for eRx and Interaction Alerts* 04/27/2021 Active FreeStyle Philip 3 Sensor - Miscellaneous FreeStyle Philip 3 Sensor( miscellaneous every 14 days ) Active -Hx Entry miscellaneous every 14 days; Duration: 0 11/04/2024 Active Ajovy Autoinjector 225mg/1.5 mL Ajovy Autoinjector( 225mg/1.5 mL subcutaneous 1 every 12 weeks ) Active -Hx Entry subcutaneous every 12 weeks; Duration: 0 *Reorder from [facility] for eRx and Interaction Alerts* 11/04/2024 Active [...] other day; Duration: 30 *Pick strength-form from [facility] for eRX* 11/09/2019 Active Vitamin B-12 1000 MCG Tablet Vitamin B-12 1000MCG, 1 (one) Tablet daily # 30, 04/27/2021, No Refill. Active Oral daily; Duration: 30 04/27/2021 Active PROzac 20mg PROzac 20mg, 1 Capsule daily # 90, 12/04/2024, No Refill. Active oral daily; Duration: 90 *Reorder from [facility] for eRx and Interaction Alerts* 12/04/2024 Active Vitamin B-6 25 MG Tablet Vitamin B-6 25MG, 1 (one) Tablet daily # 30, 04/27/2021, No Refill. Active Oral daily; Duration: 30 04/27/2021 Active Albuterol Sulfate 90mcg/actuat albuterol sulfate 90mcg/actuat, 2 Puff q 4 hours prn wheezing # 1, 01/22/2024, Ref. x2. Active inhalation q 4 hours prn wheezing; Duration: 30 *Pick strength-form from [facility] for eRX* 01/22/2024 Active ALPRAZolam 0.5 MG Tablet ALPRAZolam 0.5mg, 1 (one) tablet two times daily, as needed FOR PANIC ATTACHS # 20, 10/12/2024, No Refill. Active Oral two times daily, as needed FOR PANIC ATTACHS; Duration: 10 DX: PANIC ATTACkS [place] Controlled Substance Reporting Database reviewed and patient [...] smoker Encounters Encounter Location Date Provider Diagnosis [facility] [address] [facility] [place] [address] 05/15/2025 Provider Migration Plan Of Treatment No Information Progress Notes * Georgia ARAGONDOB:[birth year] (50 yo F)Acc No.[id number]:05/15/2025 Patient: [place] CHRISTIE :1975 A ge:49 Y S ex:Female Address:[address] [place] [address] Subjective: * Chief Complaints: * E MR-Héctor [...] , Notes to Pharmacist: *Pick strength-form from [employer] for eRX*ALPRAZolam 0.5 MG Tablet ALPRAZolam 0.5mg, 1 (one) tablet two times daily, as needed FOR PANIC ATTACHS # 20, 10/12/2024, No Refill. Active Oral two times daily, as needed FOR PANIC ATTACHS , Notes to Pharmacist: DX: PANIC ATTACkS [place] Controlled Substance Reporting Database reviewed and patient found to be in compliance with prescription.Ferrous Sulfate 325 (65 Fe)MG Ferrous Sulfate 325 (65 Fe)MG, 1 tablet Tablet daily or every other day # 30, 11/09/2019, Ref. x2. Active Oral daily or every other day , Notes to Pharmacist: *Pick strength-form from [employer] for eRX*Ondansetron 4 MG Tablet Disintegrating ondansetron 4mg, 1 (one) Tablet as needed for nausea # 30, 02/25/2024, No Refill. Active Oral as needed for nausea PROzac 20mg PROzac 20mg, 1 Capsule daily # 90, 12/04/2024, No Refill. Active oral daily , Notes to Pharmacist: *Reorder from [employer] for eRx and Interaction Alerts*Vitamin B-12 1000 [...] daily , Notes to Pharmacist: *Reorder from [employer] for eRx and Interaction Alerts*Farxiga 10 MG [...] Notes to Pharmacist: *Reorder from [facility] for eRx and Interaction Alerts*atorvastatin 40mg atorvastatin 40mg, 1 (one) Tablet at bedtime for high cholesterol # 90, 09/13/2024, Ref. x1. Active oral at bedtime for high cholesterol , Notes to Pharmacist: *Reorder from [facility] for eRx and Interaction Alerts*cholecalciferol (vitamin D3) 50 mcg(2,000 uni cholecalciferol (vitamin D3) 50 mcg(2,000 uni, 1 (one) Tablet daily # 30, 11/20/2022, No Refill. Active oral daily , Notes to Pharmacist: *Reorder from [facility] for eRx and Interaction Alerts*cyclobenzaprine 5mg cyclobenzaprine 5mg, 1 tablet Tablet at bedtime as needed for neck tension # 90, 11/04/2024, Ref. x1. Active oral at bedtime as needed for neck tension , Notes to Pharmacist: *Reorder from [facility] for eRx and Interaction Alerts*Nurtec ODT 75mg Nurtec ODT 75mg, 1 (one) Tablet daily at onset of migraine headache # 8, 01/09/2024, Ref. x2. Active oral daily at onset of migraine headache , Notes to Pharmacist: *Reorder from [facility] for eRx and Interaction Alerts*Ozempic 2 mg/dose(8 mg/3 mL Ozempic( 2 mg/dose(8 mg/3 mL subcutaneous 2 mg one weekly ) Active -Hx Entry subcutaneous one weekly , Notes to Pharmacist: *Reorder from [facility] for eRx and Interaction Alerts*Taking Albuterol Sulfate 90mcg/actuat albuterol sulfate 90mcg/actuat, 2 Puff q 4 hours prn wheezing # 1, 01/22/2024, Ref. x2. Active inhalation q 4 hours prn wheezing , Notes to Pharmacist: *Pick strength-form from [facility] for eRX*Taking ALPRAZolam 0.5 MG Tablet ALPRAZolam 0.5mg, 1 (one) tablet two times daily, as needed FOR PANIC ATTACHS # 20, 10/12/2024, No Refill. Active Oral two times daily, as needed FOR PANIC ATTACHS , Notes to Pharmacist: DX: PANIC ATTACkS [place] Controlled Substance Reporting Database reviewed and patient found to be in compliance with prescription.Taking Ferrous Sulfate 325 (65 Fe)MG Ferrous Sulfate 325 (65 Fe)MG, 1 tablet Tablet daily or every other day # 30, 11/09/2019, Ref. x2. Active Oral daily or every other day , Notes to Pharmacist: *Pick strength-form from [employer] for eRX*Taking Ondansetron 4 MG Tablet Disintegrating ondansetron 4mg, 1 (one) Tablet as needed for nausea # 30, 02/25/2024, No Refill. Active Oral as needed for nausea Taking PROzac 20mg PROzac 20mg, 1 Capsule daily # 90, 12/04/2024, No Refill. Active oral daily , Notes to Pharmacist: *Reorder from [employer] for eRx and Interaction Alerts*Taking Vitamin B-12 [...] daily , Notes to Pharmacist: *Reorder from [employer] for eRx and Interaction Alerts*Taking Farxiga 10 [...] Notes to Pharmacist: *Reorder from [facility] for eRx and Interaction Alerts*Taking atorvastatin 40mg atorvastatin 40mg, 1 (one) Tablet at bedtime for high cholesterol # 90, 09/13/2024, Ref. x1. Active oral at bedtime for high cholesterol , Notes to Pharmacist: *Reorder from [facility] for eRx and Interaction Alerts*Taking cholecalciferol (vitamin D3) 50 mcg(2,000 uni cholecalciferol (vitamin D3) 50 mcg(2,000 uni, 1 (one) Tablet daily # 30, 11/20/2022, No Refill. Active oral daily , Notes to Pharmacist: *Reorder from [facility] for eRx and Interaction Alerts*Taking cyclobenzaprine 5mg cyclobenzaprine 5mg, 1 tablet Tablet at bedtime as needed for neck tension # 90, 11/04/2024, Ref. x1. Active oral at bedtime as needed for neck tension , Notes to Pharmacist: *Reorder from [facility] for eRx and Interaction Alerts*Taking Nurtec ODT 75mg Nurtec ODT 75mg, 1 (one) Tablet daily at onset of migraine headache # 8, 01/09/2024, Ref. x2. Active oral daily at onset of migraine headache , Notes to Pharmacist: *Reorder from [facility] for eRx and Interaction Alerts*Taking Ozempic 2 mg/dose(8 mg/3 mL Ozempic( 2 mg/dose(8 mg/3 mL subcutaneous 2 mg one weekly ) Active -Hx Entry subcutaneous one weekly , Notes to Pharmacist: *Reorder from [facility] for eRx and Interaction Alerts* * Allergies: A llergies Reconciled: AllergyAzithromycin: AllergyAzithromycin *CHEMICALS*: AllergyBanana (Diagnostic): AllergyBlueberry Flavor: AllergyBlueberry Flavor *PHARMACEUTICAL ADJUVANTS*: AllergyErythromycin: AllergyIodine: AllergyIodine *ANTISEPTICS & DISINFECTANTS*: AllergyLactase *DIETARY PRODUCTS/DIETARY MANAGEMENT PRODU: AllergyMontelukast Sodium *ANTIASTHMATIC AND BRONCHODILAT: AllergyPenicillins: AllergyRaspberry Flavor *PHARMACEUTICAL ADJUVANTS*: AllergyShellfish: AllergyShellfish-derived Products: Allergy * * Date:
--- OUTSIDE RECORDS SUMMARY | 2025-06-06 03:30 | XMS_ITS ---
Author Organization [facility] are Address [address] [place] [address] Care Team Providers Care Diamond Sizer And Sorter Name Role Phone Tristen MRS. Almaguerica Primary Care Provider Benedicto Talley MD Unavailable Unavailable All Meade [phone] REASON FOR VISIT follow up Encounters Encounter Location Date Provider Diagnosis [facility] [address] [place] [address] 06/06/2025 All Meade Plan Of Treatment No Information Progress Notes * Georgia ARAGONDOB:[birth year] (50 yo F)Acc No.[id number]:06/06/2025 Progress Notes Patient: Geo godinez [place] Meza Provider: Samantha Meade NP :1975 A ge:50 Y S ex:Female Date:06/06/2025 Address:[address] [place], [place] [id number] Pcp:MRS. Moeller Anastacia Ramon Subjective: * Chief Complaints: * F ollow up Billing Information: * Procedure Codes: * Electronic signature of All Meade NP on 06/20/2025 at 05:23 PM EST Sign off status: Pending * Provider: Samantha Meade NP Date: 08/07/2024 Generated for Xenia valdez/Fabio/eTransmitting on: 08/21/2024 05:23 PM EST
[2025-06-20 16:21] VITALS: BP 181/106; PULSE 104; RESP 18; TEMP 36.9; O2SAT 100
--- OUTSIDE RECORDS SUMMARY | 2025-06-20 16:22 | XMS_ITS | Patient Health Record ---
Author Organization [facility] [address] Address [address] [place] [address] Care Team Providers Care Fishing Game Warden Name Role Phone Sunni Ramon Primary Care Provider Benoit Chance [phone] Allergies Allergen (clinical drug ingredient) Drug/Non Drug Allergy documented on EMR Reaction Allergy Type Onset Date Status duloxetine Cymbalta Unknown Drug Allergy Active Lactose stomach upset Drug Allergy Act trace metoclopramide Reglan Unknown Drug Allergy Ac tive tapentadol Nucynta Unknown Drug Allergy Active Compazine Unknown Drug Allergy Active azithromycin Azithromycin hives Drug Allergy A ctive duloxetine Duloxetine Unknown Drug Allergy Activ e erythromycin Erythromycin hives Drug Allergy A ctive Gadolinium and/or gadolinium compound (FN) Gadolinium Derivatives Unknown Drug Allergy Active Influenza Vaccine Live Unknown Drug Allergy Active Iodine anaphylaxis Drug Allergy Activ e metoclopramide Metoclopramide Unknown Drug Allergy Active montelukast Montelukast Unknown Drug Allergy Act trace nitroglycerin Nitroglycerin Unknown Drug Allergy Active Non-steroidal anti-inflammatory agent (FN) NSAIDs Unknown Drug Allergy Active Substance with penicillin structure and antibacterial mechanism of action (substance) Penicillins hives Drug Allergy Active prochlorperazine Prochlorperazine Unknown Drug Allergy Active Shellfish (FN) Shellfish-derived Products anaphylaxis Drug Allergy Active tapentadol Tapentadol hives Drug Allergy Activ e Reason For Referral No Information Medications Medication [...] EVERY 14 DAYS; Duration: 28 Days Active Cyclobenzaprine HCl 5 MG Tablet TAKE ONE TABLET BY MOUTH TWO TO THREE times DAILY NEEDED FOR MUSCLE SPASMS; MAY cause sedation Oral; Duration: 30 Days Active Ozempic (0.25 or 0.5 MG/DOSE) 2 MG/3ML Solution Pen-injector INJECT 0.25 MG SUBCUTANEOUSLY EVERY WEEK FOR FOUR WEEKS THEN increase TO 0.5 MG EVERY WEEK Subcutaneous; Duration: 28 Days Active Lisinopril 10 MG Tablet 1 tablet Orally Once a day; Duration: 30 day(s) 03/08/2024 Active Tylenol 325 MG Tablet 1 tablet as needed Orally every 6 hrs 02/17/2024 Active Social History Tobacco Use: Social History Observation Description Date Details (start date - stop date) Never Smoker NA - NA Sex Assigned At : Social History Observation Description Sex Assigned At Female Social History General Social Info Question Answer Notes Opioid Risk Tool Family history of substance abuse? Ye s Personal history of substance abuse? No Age (miguel box if 16-45)? No History of preadolescent sexual abuse? No Psychological disease? Yes ADD, OCD biopolar disorder, schizophrenia? Yes Depression? Yes Alcohol? Yes Illegal drugs? Yes Prescription drugs? Yes Tobacco Screening Do you use tobacco No Are you a tobacco user: nonsmoker Additional Findings: Tobacco Non-User Non-smoker for personal reasons Tobacco Use: Social Info Question Answer Notes Tobacco Control (Standard) Tobacco use: Nonsmoker Additional Findings: Tobacco non-user Aggressive nonsmoker Problems Problem Type SNOMED Code ICD Code Onset Dates Problem Status W/U Status Risk Notes Problem Cervicalgia (94966241) Cervicalgia (M54.2) Active confirmed Problem Lumbar radiculopathy (435645398) Radiculopathy, lumbar region (M54.16) Active confirmed Problem Cervical radiculopathy (17438466) Cervical radiculopathy (M54.12) Active confirmed Problem Neck pain (63173056) Neck pain (M54.2) Active confirmed Problem Post-concussion syndrome (55970452) Post-concussion syndrome (F07.81) Active confirmed Plan Of Treatment No Information Insurance Providers Payer Name Payer Address Payer Phone Subscriber Number Group Number Insured Name Patient Relationship to Insured Coverage Start Date Coverage End Date Healthy Venkatesh [address] [address] [place] [address] [id number] [facility] [place] Self - patient is the insured Medical (General) History Medical History History ICD Code General: Diabetes Cardiovascular: High cholesterol Neuro: Headache,Seizure Respiratory: Asthma,Sleep apnea Genitourinary: Kidney stones Gastrointestinal: Acid reflux/Ulcer,GI b leeding Hematology: Anemia Psychology: Anxiety,Depression,Bipolar d isorder PTSD Surgical History Surgery Date(Month/Year) Liver biopsy Appendectomy Hernia repair Ankle repair Ovarian cyst removal 3 C sections Gallbladder removed Oral surgery Hysteroctomy Foot surgery Hospitalization History Reason Date(Month/Year) Heart issues see surgical hx Seizures
--- OUTSIDE RECORDS SUMMARY | 2025-06-20 16:22 | XMS_ITS | Clinical Summary ---
Author Organization [facility] ([facility] [employer]) Address [address] [place] [address] Care Team Providers Care Dynamicist Name Role Phone Unassigned, Doctor Primary Care [...] prosecute any alcohol or drug abuse patient. [facility] [employer]) Allergies Active Allergy Reactions Criticality Noted Date [...] ordered. Pt declined sleep study d/t child welfare specialist issues Holter report: NSR, sinus arrhythmia with [...] in Comments Son Ben Worrell lives in skilled nursing Relation Name Status Comments Brother Alive Daughter [...] Health Maintenance Due Date Last Done Comments Cervical Cancer Screening 1976 DIABETES EYE EXAM 1994 DIABETES FOOT EXAM 1994 DIABETES URINE PROTEIN SCREENING 1994 HPV/Cotest 2006 CT COLONOGRAPHY 2021 FIT-DNA 2021 FIT 2021 FOBT 2021 Sigmoidoscopy 2021 DEPRESSION SCREENING & SURVEILLANCE 07/10/2023 07/10/2022 BREAST CANCER SCREENING & SURVEILLANCE 10/16/2023 10/15/2021, 08/21/2020, 08/21/2020 CERVICAL CANCER SCREENING & SURVEILLANCE-NEW 11/01/2024 Pap Smear 11/01/2024 11/01/2021, 11/29, 05/26/2016, Additional history exists INFLUENZA VACCINE 01/28/2025 03/10/2024, 04/26/2019 COVID-19 VACCINE (2024- 6 season) 2025 DIABETES HBA1C 09/01/2025 09/01/2024, 07/01, 01/17/2022, Additional history exists COLONOSCOPY 12/16/2032 12/16/2022, 05/0 07/2021, 09/13/2020, Additional history exists COLORECTAL CANCER SCREENING & SURVEILLANCE 12/16/2032 HEPATITIS C SCREENING Completed 07/11/2015 Medical Devices Implanted Type Area Machine Set Up Technician Device Identifier Shelf Expiration Date Model / Serial / Lot Stent Uret Contour [id number] - [id number] - [id number] Implanted:Qty: 1 on 04/16/2018 by Jefe Veliz MD at [facility] Left: [employer] 12/28/2020 [id number] / [id number] / [id number] Procedures Procedure Name Priority Date/Time Associated Diagnosis [...] - 5.6 % 07/20/2024 6:53 PM EST [facility]) Est Avg Glucose 134 mg/dL 6:53 PM EST [facility] ([facility]) Blood BLOOD SPECIMEN / Unknown Venipuncture / Unknown 07/19/2024 11:25 PM EST 07/19/2024 11:30 PM EST Narrative [facility] ([facility]) - 07/20/2024 6:53 PM EST This assay has been cleared by the FDA to be used as an aid in the diagnosis of diabetes and in identifying patients who may be at risk for developing diabetes. The threshold for diagnosis of diabetes is an HA1c result > or = 6.5%. Lanre Morrison MD LAB BLOOD ORDERABLES Zulay conley Result [facility] ([facility]) [address] [place] [address] * PAP, SUREPATH SCREEN (11/01/2021 12:43 PM EDT) Case Report GY - Gynecologic Cytology Case: [id number] Authorizing Provider: Mehnaz Gordon MD Collected: 11/01/2021 1243 Ordering Location: [facility] Received: 11/01/2021 1243 First Screen: Ángela Rust CT (ASCP) Specimen: Pap, SurePath Screen, Endocervical/Ecto cervical 11/05/2021 10:55 AM [facility] ([facility]) Clinical Information LMP 07/31/2021 Cryotherapy/Laser Therapy No Cycles Irregular Radiation/Chemoth erapy No No /Lactat ing No Abnormal Bleeding Yes Abnormal Pap History No Hormones No Previous Dx Assistant Manager Trainee Malignancy No 11/05/2021 10:55 AM [facility] ([facility]) Specimen Adequacy Satisfactory for evaluation, endocervical/carson sformation zone component present 11/05/2021 10:55 AM [facility] ([facility]) Interpretation Negative for intraepithelial lesion or malignancy 11/05/2021 10:55 AM [facility] ([facility]) at 1054 EDT Comments Acute inflammation. 11/05/2021 10:55 AM [facility] ([facility]) Pap Disclaimer The Pap test is a screening test which carries an inherent false negative rate. These test results should be correlated with the patient's clinical findings and history. This Pap test was processed using an automated screening system. 11/05/2021 10:55 AM [facility] ([facility]) Pap-Assistant Manager Trainee CERVIX UTERI STRUCTURE / Unknown 11/01/2021 12:43 PM EDT 11/01/2021 12:43 PM EDT us Mehnaz Gordon MD LAB PATHOLOGY/CYTOLOGY ORDER BUFFY Final Result [facility] ([facility]) [address] [id number] * BREAST MAMMOGRAM 3D GRZEGROZ SCREENING BILATERAL XAF (10/15/2021 2:46 PM EDT) [...] 21, 2020, TOMOSYNTHESIS BILATERAL DIAGNOSTIC performed at [facility]. The breast tissue is almost entirely fat. [...] 21, 2020, TOMOSYNTHESIS BILATERAL DIAGNOSTIC performed at [facility]. The breast tissue is almost entirely fat. There are benign appearing calcifications in both breasts. There is no other significant finding on the study in either breast. BI-RADS: Benign (BIRADS 2) Recommendation: Mamm[facility] of both breasts in [facility] year. [facility] RADIOLOGY MAMMOGRAPHY ORDERABLES Final Result * HEPATITIS [...] a more specific supplemental or PCR testing. [facility] w/Reflex to Verification test #[id number]. Result Narrative [facility] Comment: TESTING PERFORMED BY: - [address] [address] Director: Luther Fields MD 07/11/2015 12:1 3 PM EST 07/11/2015 8:32 PM EST Naila Vallejo MD LAB BLOOD ORDERABLES Fin al Result [facility] [address] [place] [address] NOT ON FILE [facility] 01 N/A from Last 3 Months or Most Recently Relevant to Health Maintenance Insurance MEDICAID - [place]ALTH[place] BLUE Advance Directives * [...] 6:51 PM 04/05/2019 8:01 PM Care Teams Dynamicist Relationship Specialty Start Date End Date Unassigned, [...] prosecute any alcohol or drug abuse patient. [facility])
--- OUTSIDE RECORDS SUMMARY | 2025-06-20 16:22 | XMS_ITS | Encounter Summary ---
Author Organization [facility] Address [address] [place] [address] Care Team Providers Care Vice Chairman Name Role Phone Aislinn Merlos Primary Care Provider [phone] Encounter Details Date Type Department Care Team (Late st Contact Info) Description 10/07/2024 OnBase Documentation On File [address] [place] [address] Social History Tobacco Use Types Packs/Day Years Used Date Smoking Tobacco: Never Smokeless Tobacco: Never Alcohol Use Standard Drinks/Week Comments Not Currently 0 (1 standard drink = 0.6 oz pur e alcohol) [facility] Utilities Answer Date Recorded In the [...] Recorded Patient Health Questionnaire-2 Score 6 05/31/2024 [facility] [place] [facility] Occupat ional [facility] - Occupational Stress [...] were you homeless or living in a usp (including now)? No 05/31/2024 Interpersonal Safety Answer [...] Info) Description 10/25/2025 11:00 AM EDT Telemedicine [facility] [address] [place] [address] Christophe Crowley NP [address] [place] [address] Follow-up disposition: Return in about 6 months (around 10/25/2025) for Christophe, video visit, Tuesdays. documented as of this encounter Visit Diagnoses Not on filedocumented in this encounter Care Teams Vice Chairman Relationship Specialty Start Date End Date Aislinn Merlos PA [address] [place] [address] PCP - General 08/13/21 documented as of this encounter
--- OUTSIDE RECORDS SUMMARY | 2025-06-20 16:23 | XMS_ITS | Encounter Summary ---
Author Organization [facility] Address [address] [place] [address] Care Team Providers Care Billet Driller Name Role Phone Naila Vallejo MD Primary Care Provider [phone] Aislinn Merlos Primary Care Provider [phone] Sandra Wood Unavailable Unavailable Serena Meyer Unavailable Unavailable Krys Oropeza RN Unavailable Unavailable Reason for Visit * Reason Onset Date Comments Obesity 05/11/2015 Med/Surg Encounter Details Date Type Department Care Team (Late st Contact Info) Description 05/11/2015 Documentation [facility] [address] [place] [phone] Tawny Chaudhary Obesity (Med/Surg) Social History [...] Info) Description 10/25/2025 11:00 AM EDT Telemedicine [facility] [address] [place] [id number] Christophe Crowley NP [address] [place] [address] Follow-up disposition: Return in about 6 months (around 10/25/2025) for Riddhiing, video visit, Tuesdays. documented as of this encounter Visit Diagnoses Not on filedocumented in this encounter Care Teams Billet Driller Relationship Specialty Start Date End Date Naila Vallejo MD [address] [place] [address] PCP - General Family Medicine 05/11/15 08/12/21 Aislinn Merlos PA [address] [place], [place] [id number] PCP - General 08/13/21 Sandra Wood [facility] 05/13/2405/01 Serena Meyer [facility] 05/24/2406/01 Krys Oropeza, business development engineer [facility] 06/01/24 4 documented as of this encounter
--- OUTSIDE RECORDS SUMMARY | 2025-06-20 16:23 | XMS_ITS | Clinical Summary ---
Author Organization [facility] Address [address] [place] [address], [facility] [address] [place] [address] Phone Care Team Providers Care Branch General Manager Name Role Phone Unavailable Primary Care Provider [...] Continuous Glucose Sensor (FreeStyle Philip 2 Sensor) [facility] [place] USE ONE sensor replace sensor EVERY 14 [...] patient's age to complete this topic Insurance [place]
--- OUTSIDE RECORDS SUMMARY | 2025-06-20 16:24 | XMS_ITS | Patient Health Record ---
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 Sunni Ramon Primary Care Provider [phone] Benedicto Talley MD Unavailable Unavailable DR. Benedicto Talley Unavailable [phone] Migration, Provider Unavailable Unavailable All eMade Unavailable [phone] Results Component Value Reference Range Notes IADNA SARSCOV2 & INF A&B & R SV MULT AMP PROBE TQ ([id number]) Reviewed date:09/06/2024 12:00:00 AM Interpretation: Performing Lab: Notes/Report: IADNA SARSCOV2 & INF A&B & RSV MULT AMP PROBE not dete cted NR BLOOD GLUCOSE-HOME MONITOR ( [id number]) Reviewed date:10/05/2024 12:00:00 AM Interpretation: Performing Lab: [...] UA - URINE SEDIMENT x NR CALCIFEDIOL (29151) Reviewed date:10/13/2024 12:00:00 AM Interpretation: Performing Lab: Notes/Report: Vitamin D, 25-Hydroxy 42.7 ng/mL 30.0-100.0 Cardiovascular Report Reviewed date:10/13/2024 12:00:00 AM Interpretation: Performing Lab: Notes/Report: Interpretation Note NR PDF . NR CBC, PLATELETS & AUT DIFF ([id number]) Reviewed date:10/13/2024 12:00:00 AM Interpretation: Performing Lab: [...] 11.7-15.4 WBC 8.6 x10E3/uL 3.4-10.8 LIPID PANEL (23260) Reviewed date:10/13/2024 12:00:00 AM Interpretation: Performing Lab: Notes/Report: Cholesterol, Total 200 mg/dL 100-199 HDL Cholesterol 39 mg/dL >39 LDL Chol Calc ([facility]) 141 mg/dL 0-99 Triglycerides 112 mg/dL 0-149 VLDL Cholesterol Ollie 20 mg/dL 5-40 METABOLIC PANEL, COMPREHENSI VE (20993) Reviewed date:10/13/2024 12:00:00 AM Interpretation: Performing Lab: [...] 141 mmol/L 134-144 Microalb/Creat Ratio, Sheng Giraldo (32037) Reviewed date:10/13/2024 12:00:00 AM Interpretation: Performing Lab: [...] for neck tension; Duration: 90 *Reorder from [facility] for eRx and Interaction Alerts* 11/04/2024 Active Ferrous Sulfate 325 (65 Fe)MG Ferrous Sulfate 325 (65 Fe)MG, 1 tablet Tablet daily or every other day # 30, 11/09/2019, Ref. x2. Active Oral daily or every other day; Duration: 30 *Pick strength-form from [facility] for eRX* 11/09/2019 Active cholecalciferol (vitamin D3) 50 mcg(2,000 uni cholecalciferol (vitamin D3) 50 mcg(2,000 uni, 1 (one) Tablet daily # 30, 11/20/2022, No Refill. Active oral daily; Duration: 30 *Reorder from [facility] for eRx and Interaction Alerts* 11/20/2022 Active Vitamin B-12 1000 MCG Tablet Vitamin B-12 1000MCG, 1 (one) Tablet daily # 30, 04/27/2021, No Refill. Active Oral daily; Duration: 30 04/27/2021 Active Ozempic 2 mg/dose(8 mg/3 mL Ozempic( 2 mg/dose(8 mg/3 mL subcutaneous 2 mg one weekly ) Active -Hx Entry subcutaneous one weekly; Duration: 0 *Reorder from [facility] for eRx and Interaction Alerts* 11/04/2024 Active PROzac 20mg PROzac 20mg, 1 Capsule daily # 90, 12/04/2024, No Refill. Active oral daily; Duration: 90 *Reorder from [facility] for eRx and Interaction Alerts* 12/04/2024 Active Nurtec ODT 75mg Nurtec ODT 75mg, 1 (one) Tablet daily at onset of migraine headache # 8, 01/09/2024, Ref. x2. Active oral daily at onset of migraine headache; Duration: 30 *Reorder from [facility] for eRx and Interaction Alerts* 01/09/2024 [...] Entry Oral daily; Duration: 30 *Reorder from [facility] for eRx and Interaction Alerts* 04/27/2021 Active ALPRAZolam 0.5 MG Tablet ALPRAZolam 0.5mg, 1 (one) tablet two times daily, as needed FOR PANIC ATTACHS # 20, 10/12/2024, No Refill. Active Oral two times daily, as needed FOR PANIC ATTACHS; Duration: 10 DX: PANIC ATTACkS [place] Controlled Substance Reporting Database reviewed and patient found to be in compliance with prescription. 10/12/2024 Active atorvastatin 40mg atorvastatin 40mg, 1 (one) Tablet at bedtime for high cholesterol # 90, 09/13/2024, Ref. x1. Active oral at bedtime for high cholesterol; Duration: 90 *Reorder from [facility] for eRx and Interaction Alerts* 09/13/2024 Active Ajovy Autoinjector 225mg/1.5 mL Ajovy Autoinjector( 225mg/1.5 mL subcutaneous 1 every 12 weeks ) Active -Hx Entry subcutaneous every 12 weeks; Duration: 0 *Reorder from [employer] for eRx and Interaction Alerts* 11/04/2024 Active PROzac 20 MG Capsule PROzac 20mg, 1 Capsule daily # 90, 12/04/2024, No Refill. Active Oral daily; Duration: 90 12/04/2024 Active Albuterol Sulfate 90mcg/actuat albuterol sulfate 90mcg/actuat, 2 Puff q 4 hours prn wheezing # 1, 01/22/2024, Ref. x2. Active inhalation q 4 hours prn wheezing; Duration: 30 *Pick strength-form from [facility] for eRX* 01/22/2024 Active FreeStyle Philip 3 Sensor - Miscellaneous FreeStyle Philip 3 Sensor( miscellaneous every 14 days ) Active -Hx Entry miscellaneous every 14 days; Duration: 0 11/04/2024 Active Immunizations Vaccine [place] [id number] TDAP IM Intramuscular 10/05/2024 Pending ,Immuniz ationName, ' : Tdap (7 years and up) (43994) ,Status,' : Ordered Influenza, unspecified formulation IM Intramuscular 03/10/2024 Administered ,ImmunizationNa me, ' : Influenza, inj, MDCK, preservative free, q.valent (95674) ,Status,' : Complete 48776 Flu Shot IM Intramuscular 03/10/2024 Administered ,I mmunizationName, ' : Influenza, inj, MDCK, preservative free, q.valent (50408) ,Status,' : Complete Social History Social History [...] Problem Viral infection of the digestive tract (095169313) Viral intestinal infection, unspecified (A08.4) Active confirmed This appears viral. Discussed OTC medications for symptomatic relief. Educated patient on viral vs bacterial infections and use of antibiotics. Provided return precautions. Reminded patient of the importance of hygiene to prevent transmission. Please re-check if no improvement in 1 week OSIW. Problem Candidiasis (92061922) Candidiasis, unspecified (B37.9) Inactive confirmed Patient contacts [...] Will provide a prescription for fluconazole. Problem Iron deficiency anemia (69488387) Iron deficiency anemia, unspecified (D50.9) Active confirmed Continue OTC Ferrous Sulfate 325 mg daily. Will check CBC w/ diff and iron studies. Problem Vitamin B>12< deficiency anaemia (73064042) Vitamin B12 deficiency anemia, unspecified (D51.9) Active confirmed Problem Type II diabetes mellitus without complication (999050976) Type 2 diabetes mellitus without complications (E11.9) Active confirmed Managed by endocrinology. A1c controlled at this time. 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 Will check Vitamin A levels. Discussed dangers associated with fat-soluble vitamins and not going over recommended daily amount. Problem Vitamin B deficiency (68303086) Deficiency of other specified B group vitamins (E53.8) Active confirmed Rechecking labs today Problem Vitamin D deficiency (23406438) Vitamin D deficiency, unspecified (E55.9) Active confirmed Labs pending. Will call patient with results and treat as indicated. Continue vitamin Vitamin D3, 2000 units a day. Problem Morbid obesity (disorder) (437696806) Morbid (severe) obesity due to excess calories (E66.01) Active confirmed Encouraged heart healthy diet modifications and increased exercise of moderate intensity 3-4 times per week as tolerated. Reviewed the numerous benefits of reducing weight. Problem Hyperlipidemia (89598586) Hyperlipidemia, unspecified (E78.5) Active confirmed Rechecking lipid panel. Continue atorvastatin 40 mg daily. Encouraged lifestyle modification in diet and exercise regimen to reduce cholesterol. - Continue lowering intake of high-saturated fat in diet. - Goal lipid levels: Total cholesterol: < 170 Triglycerides: < 150 HDL: > 40 LDL: < 70 Problem Bipolar disorder (24169120) Bipolar disorder, unspecified (F31.9) Active confirmed Follow up with her psychiatrist and her therapist. Problem Anxiety disorder (594265896) Anxiety disorder, unspecified (F41.9) Active confirmed Continue Prozac. Patient also has Xanax available as needed. Will have our office reach out to [facility] psychiatry to inquire about follow-up. Will refer elsewhere if needed for psychiatry services. Problem Post-traumatic stress disorder (27830269) Post-traumatic stress disorder, unspecified (F43.10) Active confirmed Patient started on Zoloft 50 mg daily. Psychiatrist commented he may consider adding Minipress in case there is no improvement in nightmares. Continue to monitor. Problem Epilepsy (29526704) Epilepsy, unspecified, not intractable, without status epilepticus (G40.909) Active confirmed Agreed to refill one more time in light of the COVID-19 pandemic, however patient needs to get all future refills of her Ativan from her Neurologist who initially prescribed the medication. Clear per [employer] database. Problem Migraine without aura, not refractory (disorder) (278406375) Migraine, unspecified, not intractable, without status migrainosus [...] Patient given strict return precautions. Problem Insomnia (120396564) Insomnia, unspecified (G47.00) Active confirmed Problem Obstructive sleep apnea syndrome (disorder) (70083397) Obstructive sleep apnea (adult) (pediatric) (G47.33) Active confirmed Patient has still not heard from [facility] Pulmonology to schedule sleep study. Will refer to [place] upon patient request. Problem Carpal tunnel syndrome (96525662) Carpal tunnel syndrome, right upper limb (G56.01) Active confirmed Tendonitis vs CTS. Advised patient she will need to stop crocheting at least for now and will place her in a CTS splint with a thumb stabilizer to help with trigger thumb. Re-check in 2 weeks if no improvement. . Problem Polyneuropathy (13314301) Polyneuropathy, unspecified (G62.9) Active confirmed Problem Benign intracranial hypertension (28195438) Benign intracranial hypertension (G93.2) Active confirmed follow-up with neurology. Problem Compression of brain (56527896) Compression of brain (G93.5) Active confirmed Diagnosed in 2007. Followed by [facility] neurology. Problem Visual disturbance (91725105) Unspecified visual disturbance (H53.9) Active confirmed Called [...] dation. Patient made aware. Problem Otitis media (79639547) Otitis media, unspecified, left ear (H66.92) Active confirmed Starting Cefedinir x 5 days. Recommend OTC Tylenol +/- Motrin for pain and fever control. Return in 2-3 days if no improvement or worsening of pain occurs. Problem Otalgia of right ear (finding) (0179728077) Otalgia, right ear (H92.01) Active confirmed Physical exam unremarkable with no signs of infection. Problem Bilateral otalgia (755533941) Otalgia, bilateral (H92.03) Active confirmed Problem Pain of ear (finding) (459757747) Otalgia, unspecified ear (H92.09) Active confirmed Physical exam unremarkable, with no sign of otitis media or externa. Likely due to seasonal allergies/conge stion causing fluid to build behind TM. Recommended OTC antihistamine. Return as needed for increased pain, fever, or onset of ear drainage. Problem Essential hypertension (01712545) Essential (primary) hypertension (I10) Active confirmed Controlled off of antihypertensiv e at this time. Problem Hypertensive heart failure (97851606) Hypertensive heart disease with heart failure (I11.0) Inactive confirmed Continue current treatment. Clinically doing well. Problem Diastolic heart failure (962069720) Unspecified diastolic (congestive) heart failure (I50.30) Active confirmed Patient reports normal echo by cardiology. No follow up scheduled. Problem Heart failure (87394329) Heart failure, unspecified (I50.9) Active confirmed Stable. Continue current treatment. Follow up with cardiology. Problem Heart disease (59209989) Heart disease, unspecified (I51.9) Active confirmed Echo 12/24/16: quality of study fair, EF 55-60%, nor LV size & fxn, no RWMA. Impaired LV relaxation / grade 1 diastolic dysfxn, trace TR On Lasix. Referring to cardiology. Problem Orthostatic hypotension (56490172) Orthostatic hypotension (I95.1) Active confirmed Orthostatic vitals performed: Laying - Blood pressure 124/74, HR 102 Standing - Blood pressure 118/60, HR 112 After standing for 2 minutes - patient became dizzy and had to sit down. BP 124/70. Findings consistent with orthostatic hypotension. Encouraged patient to drink plenty of fluids, and to avoid standing up too quickly. Problem Acute sinusitis (22350554) Acute sinusitis, unspecified (J01.90) Active confirmed Doxycycline 100 mg 1 p.o. b.i.d. x10 days. Recheck if not better in 3 to 4 days or sooner if worsening. Problem Acute pharyngitis (498697761) Acute pharyngitis, unspecified (J02.9) Active confirmed Rapid strep negative. Problem Acute upper respiratory infection (38255990) Acute upper respiratory infection, unspecified (J06.9) Active confirmed Start daily oral antihistamine and Flonase intranasal therapy for nasal congestion. Also recommend NetiPot sinus rinses, Mucinex for congestion. Recommend throat coat tea, lozenges, Chloraseptic spray for sore throat. If worsening throat pain, swelling in throat, muffling of voice please return to clinic. Problem Acute bronchitis (82303242) Acute bronchitis, unspecified (J20.9) Active confirmed Recheck if not better in 3 to 4 days or sooner if worsening. Problem Chronic sinusitis (59500344) Chronic sinusitis, unspecified (J32.9) Active confirmed Likely viral. Encouraged patient to stay well hydrated and rest as needed. May take benzonatate for cough. Problem Exacerbation of asthma (826645276) Unspecified asthma with (acute) exacerbation (J45.901) Active confirmed Refilling albuterol MDI and starting prednisone. Call 911 for difficulty breathing Problem Uncomplicated asthma (disorder) (012573717) Unspecified asthma, uncomplicated (J45.909) Active confirmed Continue Trelegy daily and albuterol as needed. Sending prescription for spacer chamber. Patient encouraged to increase albuterol inhaler use to every 4-6 hours for the next 2 days and then resume as needed. Problem Gastro-esophageal reflux disease without esophagitis (281603947) Gastro-esophage al reflux disease without esophagitis (K21.9) Active confirmed Avoid NSAIDs. Continue Omeprazole once daily. Patient has known history of reucrrent gastric ulcers secondary to chronic NSAID use. Problem Gastric ulcer (583010459) Gastric ulcer, unspecified as acute or chronic, without hemorrhage or perforation (K25.9) Active confirmed Continue to avoid use of NSAIDs. Repeat EGD in 2020, per GI recommendations . Problem Non-infective enteritis and colitis (255007860) Noninfective gastroenteritis and colitis, unspecified (K52.9) Active confirmed Symptoms likely due to gastroenteritis . VSS, no signs of volume depletion. No fevers, severe pain, bloody/mucoid stools, tolerating fluid PO intake today, and estimated BMs/day < 6. Discussed conservative treatment with symptomatic management, rehydration and bland diet advance as tolerated. Discussed proper hygiene and provided return/ED precautions to patient. Problem Fatty liver (177149838) Fatty (change of) liver, not elsewhere classified [...] alcohol, low saturated fat diet. Problem Urticaria (82680081) Urticaria, unspecified (L50.9) Active confirmed Improving w/ Lyndsey once daily. Problem Osteoarthritis (456080897) Unspecified osteoarthritis, unspecified site (M19.90) Active confirmed Desires to continue use of PRN Naproxen. Will Rx Vimovo for the patient to provide GI protection, however cautioned the patient about regular use of this medication given her hx of gastritis in the past secondary to NSAIDs. Patient agrees with plan. Problem Pain in wrist (54940805) Pain in right wrist (M25.531) Active confirmed Possibly secondary to carpal tunnel syndrome. Recommended patient to wear wrist splint for the next 2 weeks. Try conservative treatment at home including ice/heat, Tylenol as needed for pain. Patient given a written prescription for right wrist splint to pickle sorter at pharmacy. Problem Pain in wrist (25917864) Pain in left wrist (M25.532) Active confirmed [...] pain persist. Problem Disorder of wrist joint (571610018) Other specified joint disorders, unspecified wrist (M25.839) Active confirmed See above fo r details. Problem Lumbar radiculopathy (305921732) Radiculopathy, lumbar region (M54.16) Active confirmed MRI L-Spine w/o contrast ordered at last visit, awaiting medicaid approval at this time. Continue PT sessions 2-3x/week with [facility]. Has few weeks left remaining. Problem Spasm (29897758) Other muscle spasm (M62.838) Active confirmed Refilling Flexeril. Back pain appears chronic in nature. Recommend heat and ice massage with gentle stretching for back pain. Problem Acquired trigger finger (2962176) Trigger thumb, right thumb (M65.311) Active confirmed [...] would likely be sufficient. Problem Achilles bursitis (411856047) Achilles tendinitis, unspecified leg (M76.60) Active confirmed Follow up with [facility]. Problem Calculus of kidney (45185666) Calculus of kidney (N20.0) Active confirmed Recommend following back up with Urology for further evaluation. Problem Urinary tract infectious disease (disorder) (93159714) Urinary tract infection, site not specified (N39.0) Active confirmed Patient denies symptom improvement on Macrobid, switching to Bactrim DS. Urine culture sent. Increase fluid intake and urine output, holding urine no longer than two hours if possible before voiding. Problem Abscess of vulva (92817909) Abscess of vulva (N76.4) Active confirmed Followed by [facility] - Continue Bactrim DS 1 tablet BID as directed. Improved s/p I&D performed at last visit. Keep scheduled f/u appt with [facility] for next week. Problem Excessive and frequent menstruation (203525609) Excessive and frequent menstruation with regular cycle (N92.0) Active confirmed Patient is trying to concieve. Treating for SHIKHA at this time, likely due to menorrhagia. Problem Irregular menstruation (78298094) Irregular menstruation, unspecified (N92.6) Active confirmed HCG negative. Problem Abnormal uterine bleeding (86797347635626) Abnormal uterine and vaginal bleeding, unspecified (N93.9) Active confirmed Refill of Provera 20 mg TID x 7 days for AUB. Follow up appt scheduled with [facility] in November 2021. Problem Tachycardia (1082681) Tachycardia, unspecified (R00.0) Active confirmed - Follow up with Cardiology as soon as possible. Problem Elevated blood pressure reading without diagnosis of hypertension (811478585) Elevated blood-pressure reading, without diagnosis of hypertension [...] in 1 month. Problem Shortness of breath (074142509) Shortness of breath (R06.02) Active confirmed Duoneb given with marginal improvement in symptoms. Sending patient to ED for PE work-up. She declines EMS but states that she will drive directly to ED. Charge nurse called. Vital signs stable at discharge. Problem Chest pain (05301601) Other chest pain (R07.89) Active confirmed Recommended follow up with [facility]. Problem Chest pain (33651392) Chest pain, unspecified (R07.9) Active confirmed Awaiting referral to Cardiology at this time. Problem Epigastric pain (41842561) Epigastric pain (R10.13) Active confirmed New abdominal pain since starting Ozempic. Will check labs today. Will call patient with results and treat as indicated. Problem Lower abdominal pain (09868136) Lower abdominal pain, unspecified (R10.30) Active confirmed Recommended checking additional labs such as CBC, CMP, but patient denied at this time. If symptoms continue, recommended she follow up for labs. Problem Abdominal pain (86095329) Unspecified abdominal pain (R10.9) Active confirmed Updating labs today. Checking also pancreatic enzymes. Problem Nausea (860171780) Nausea (R11.0) Active confirmed Nausea is associated with Ozempic injections. Resending prescription for Zofran to her pharmacy. Patient encouraged to eat smaller and more frequent meals. Problem Vomiting (049463865) Vomiting, unspecified (R11.10) Active confirmed Patient tried Zofran with no relief. Will start Phenergan for nausea/vomiting . The patient is aware of the sedative effects of this medication and will not drive or drink alcohol while taking it. Problem Dysphagia (78973961) Dysphagia, unspecified (R13.10) Active confirmed Follow-up with GI. Problem Diarrhea (79646360) Diarrhea, unspecified (R19.7) Active confirmed Likely due to recent antibiotic use - Will send stool culture + C. diff EUGENIA. Avoid Immodium at this time as bacterial etiology can not be excluded. Increase PO hydration at home. Will Rx Bentyl for abdominal cramping as needed. Problem Paresthesia (finding) (11670434) Paresthesia of skin (R20.2) Active confirmed Followed by Neurology. Continue Gabapentin 300 mg at bedtime. Problem Abnormal gait (97276518) Unsteadiness on feet (R26.81) Active confirmed Referring for PT. Problem Dysuria (36904756) Dysuria (R30.0) Active confirmed Urinalysi s positive for excess glucose, negative for blood leukoesterase or nitrites. Sending urine sample for culture and sensitivity. Will call patient with results and treat as indicated. Problem Unspecified symptoms and signs involving the genitourinary system (R39.9) Active confirmed Problem Dizziness and giddiness (812013176) Dizziness and giddiness (R42) Active confirmed Patient does have nystagmus and ear fullness. Will try her on meclizine for symptoms of vertigo. Also recommend Zyrtec and Flonase however patient reports that she is unable to tolerate Flonase. Follow through with cardiology referral. Problem Fever (050546599) Fever, unspecified (R50.9) Active confirmed May be related to cellulitis on her right breast, which started approx. 1 week ago. Consider right breast mammogram vs. ULS if no improvement in 2-3 days. Follow up recommended. Problem Malaise (815920090) Other malaise (R53.81) Active confirmed Continue to follow up with PT for strengthening exercises. Problem Fatigue (42031682) Other fatigue (R53.83) Active confirmed Multifactorial in nature given her comorbidities and sedentary lifestyle. Chronic fatigue. Problem Syncope and collapse (049408272) Syncope and collapse (R55) Active confirmed Cardiology referral pending per [facility] records. ED precautions reviewed. Patient encouraged to check blood sugar if she feels presyncope symptoms. Problem Seizure (07097608) Unspecified convulsions (R56.9) Inactive confirmed See HPI. Keep scheduled follow up appointment with [facility]. Will allow them to further drive management of this. Problem Localized enlarged lymph nodes (141006020) Localized enlarged lymph nodes (R59.0) Active confirmed Mammogram in Jul 2020 - BIR[facility]2. Will perform ULS of the swollen palpable area in the left supraclavicular region for further evaluation. Possibly related to recent COVID-19 vaccine in the L. deltoid from 3 weeks ago. Problem Symptom: generalized (838231699) Other general symptoms and signs (R68.89) Active [...] reduce viral spread. Problem Blood chemistry abnormal (473728755) Other specified abnormal findings of blood chemistry (R79.89) Active confirmed Redrawing liver panel and hepatitis labs today. Suspect Tylenol caused LFT elevation. Patient to avoid Tylenol and EtOH going forward. Will contact patient with results of lab work. Will consider NAFLD workup if LFTs remain elevated despite discontinuing Tylenol use. Problem Glycosuria (93918737) Glycosuria (R81) Active confirmed UA with ++++ glucose, however FSBS 316 in the office. See diabetes note above. Problem Adult health examination (951617111) Encounter for general adult medical examination without abnormal findings (Z00.00) Active confirmed Discussed appropriate health maintenance and prevention topics with patient. Reviewed vaccinations and screening tests. Discussed healthy lifestyle habits to prevent disease and promote wellbeing. Labs pending, will call patient with results and treat as indicated. Re-check for annual PE in 1 year. Problem History and physical examination, follow-up ([id number]) Encounter for follow-up examination after completed treatment for conditions other than malignant neoplasm (Z09) Active confirmed see HPI Problem Screening for malignant neoplasm of cervix (648138305) Encounter for screening for malignant neoplasm of cervix (Z12.4) Active confirmed History of multiple abnormal paps. Refer to [place] to updating Pap upon patient request. Problem Vaccination given (320926668) Encounter for immunization (Z23) Active confirmed Tdap given by CG in Left deltoid Lot:[id number] EXP: 02/23/27 Tdap updated today. Problem test equivocal (980807296) Encounter for test, result unknown (Z32.00) Active confirmed Urine HCG negative. Will perfrom serum qualatative to confirm (patient requested). Avoid restarting Phentermine until lab confirms not . Patient agrees with the plan. Problem test positive (816450435) Encounter for test, result positive (Z32.01) Active confirmed Will perform serum HCG qual/quant performed, since our office is out of urine HCG test at this time. Starting vitamin once daily. Follow up with PEARL PELLER/OB if confirmed. Problem care (717588627) Encounter for supervision of normal , unspecified, unspecified trimester (Z34.90) Active confirmed Problem Dietary management surveillance (887509094) Dietary counseling and surveillance (Z71.3) Active confirmed [...] can cause defects. . Problem Counseling requested (514731760) Persons encountering health services in other specified circumstances (Z76.89) Active confirmed Although phentermine may be an okay option for her should she continue to lose weight, in light of recent events, advised that we will hold this prescription for now. Encouraged her to continue weight loss and exercise and after her neurology evaluation consider restarting or discussing an alternative option. Problem Health status (895721801) Other specified health status (Z78.9) Active confirmed Followed by Fertilty specialist. Currently on Provera but plans to start Clomid later this year. 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 (432162309) custodial (current) use of insulin (Z79.4) Inactive confirmed Problem History of urinary stone (823728463) Personal history of urinary calculi (Z87.442) Active [...] Urology on 01/14. Problem Pure hypercholesterole susie (768336266) Pure hypercholestero lemia, unspecified (E78.00) Active confirmed Check lipid and liver panel. Low-cholesterol diet. Problem Muscle pain (03327101) Myalgia, unspecified site (M79.10) Active confirmed Briefly discussed fibromyalgia with patient. Based on brief interview she does appear to meet criteria but no official diagnosis has been made yet. Would like to further discuss this with patient at future visits to see if we can get her off of Flexeril. Will refill Flexeril today. Problem Inflammatory disorder of breast (370785257) Mastitis without abscess (N61.0) Active confirmed Improving. Will order screening mammogram at this time which patient requested today. No prior screening in the past. Maternal grandmother w/ hx of breast cancer. Problem Lump in upper inner quadrant of left breast (finding) (947875839395326) Unspecified lump in the left breast, upper inner quadrant (N63.22) Active confirmed Mammogram ordered today. Problem Prediabetes (391334420) Prediabetes (R73.03) Active confirmed Problem COVID-19 (083340841) COVID-19 (U07.1) Active confirmed PCR testing today is negative. Problem Esophagitis (disorder) (11369332) Esophagitis, unspecified without bleeding (K20.90) Active confirmed Continue Protonix and Carafate. Problem Headache (08064755) Headache, unspecified (R51.9) Active confirmed Uncontrolled. Patient has not seen [facility] who have recommended neurology consult prior to moving forward with treatment modalities. 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 Problem Encounter for screening for COVID-19 (Z11.52) Active confirmed Negative rapid COVID-19/RSV/Fl u via PCR today. Results reviewed with patient. Problem Exposure to acute respiratory syndrome coronavirus 2 (996247069) Contact with and (suspected) exposure to COVID-19 (Z20.822) Active confirmed Problem Depression (587631534) Depression, unspecified (F32.A) Active confirmed Followed by Psychiatry. Problem Low back pain (355752314) Low back pain, unspecified (M54.50) Active confirmed Urinalysis negative for blood, low suspicion for migrating kidney stones. Seems musculoskeletal given tenderness on exam and exacerbated pain with certain movements. Recommend continuing Tylenol for pain relief. Also recommend stretching exercises. Problem Acute cough (7180850845706956 04) Acute cough (R05.1) Active confirmed PCR negative for COVID, flu, RSV. Given short duration of symptoms, Patient advised to treat symptomatically and follow-up if no improvement over the course of 7 to 10 days. Problem Cough (finding) (24285479) Cough, unspecified (R05.9) Active confirmed Isolate until PCR results become available. This does appear viral. Discussed OTC medications for symptomatic relief. Educated patient on viral vs bacterial infections and use of antibiotics. Return precautions given. Patient advised to speak with a medical provider about next steps if they do test positive. Problem Post-acute COVID-19 (disorder) (4382249151) Post COVID-19 condition, unspecified (U09.9) Active confirmed Symptoms consistent with long covid. Educated that these symptoms could last for weeks-months due to COVID-19. Continue to stay hydrated and drink plenty of fluids, stay active. Can treat symptomatically if needed. Problem Obese class III (finding) (314999432) Obesity, class 3 (E66.813) Active confirmed Encouraged heart healthy diet modifications and increased exercise of moderate intensity 3-4 times per week as tolerated. Reviewed the numerous benefits of reducing weight. Problem Panic disorder (999331209) Panic disorder [episodic paroxysmal anxiety] without agoraphobia [...] that she is seeing. She has contacted Private Practice. I have advised her that she also has an appointment with her PCP on Friday. Problem Body mass index 40+ - severely obese (254132837) Body mass index (BMI) 45.0-49.9, adult (Z68.42) Active confirmed Problem Body mass index 40+ - severely obese (379107364) Body mass index (BMI) 40.0-44.9, adult (Z68.41) Active confirmed Vital Signs Heart Rate 90 /min 11/04/2024 Temperature 98.40 degrees Fahrenheit 11/04/2024 Height-cm 162.56 cm 11/04/2024 Oximetry 97 % 11/04/2024 Blood pressure diastolic 84 mm Hg 11/04/2024 Weight-kg 108.41 kg 11/04/2024 Height 64.00 in 11/04/2024 Blood pressure systolic 122 mm Hg 11/04/2024 Weight 239.0000 lbs 11/04/2024 BMI 41.02 kg/m2 11/04/2024 Encounters Encounter Location Date Provider Diagnosis [facility] [address] [place] [address] 08/02/2024 Sunni Ramon [facility] [address] [place] [address] 09/06/2024 Sunni Ramon [facility] [address] [place] [address] 10/02/2024 Benedicto Singheiro [facility] [address] [place] [address] 10/05/2024 [facility] [address] [place] [address] 10/14/2024 Sunni [facility] [address] [place] [address] 11/04/2024 [facility] [address] [place] [address] 02/26/2025 Provider Migration [facility] [address] [place] [address] 02/27/2025 Provider Migration [facility] [address] [place] [address] 05/14/2025 Provider Migration [facility] [address] [place] [address] 05/15/2025 Provider Migration Plan Of Treatment No Information Insurance Providers Payer Name Payer Address Payer Phone Subscriber Number Group Number Insured Name Patient Relationship to Insured Coverage Start Date Coverage End Date [facility] [address] [address] [place] [address] [id number] Georgia Swanson Self - patient is the insured 1 Medicaid [address] [address] [place] [address] [id number] Georgia Swanson Self - patient is the [...]
--- OUTSIDE RECORDS SUMMARY | 2025-06-20 16:24 | XMS_ITS | Clinical Summary ---
Author Organization [facility] Address [address] [place] [address] Care Team Providers Care Directory Clerk Name Role Phone Aislinn Merlos Primary Care Provider [phone] Allergies Active Allergy Reactions Criticality Noted Date [...] (six) hours as needed for Pain Active FLUoxetine (PROZAC) 20 MG capsule Take 20 mg by mouth once daily Active tirzepatide (MOUNJARO) 7.5 mg/0.5 mL pen injectorIndicatio ns:Type 2 diabetes mellitus without complication, without long-term current use of insulin ([facility]) Inject 0.5 mLs (7.5 mg total) subcutaneously every 7 (seven) days 2 mL 3 04/26/20 25 Active dapagliflozin propanediol (FARXIGA) 10 mg tabletIndications :Type 2 diabetes mellitus without complication, with long-term current use of insulin ([facility]) Take 1 tablet (10 mg total) by mouth once daily 90 tablet 3 06/08/20 25 026 Active blood glucose diagnostic test stripIndications: Type 2 diabetes mellitus without complication, with long-term current use of insulin ([facility]) Use to check 3 times a day for blood glucose. 100 each 3 06/08/20 25 Active lancetsIndication s:Type 2 diabetes mellitus without complication, with long-term current use of insulin ([facility]) Use 3 times a day for glucose mornitoring. 100 each 3 06/08/20 25 Active pen needle, diabetic 32 gauge x 5/16 needle Use as directed 100 each 12 06/08/20 25 026 Active dapagliflozin propanediol (FARXIGA) 10 mg tabletIndications :Type 2 diabetes mellitus without complication, with long-term current use of insulin ([facility]) Take 1 tablet (10 mg total) by mouth once daily 90 tablet 3 05/06/20 24 025 Disconti nued(Reo rder) blood glucose diagnostic test strip Use to check 3 times a day for blood glucose. 100 each 3 05/06/20 24 025 Disconti nued(Reo rder) lancets Use 3 times a day for glucose mornitoring. 100 each 3 05/06/20 24 025 Disconti nued(Reo rder) pen needle, diabetic 32 gauge x 5/16 needle Use as directed 100 each 12 05/06/20 24 025 Disconti nued(Reo rder) Active Problems Problem Noted Date Diagnosed Date Type 2 diabetes mellitus wit hout complication, without long-term current use of insulin ([facility]) 12/06/2024 Obesity, Class III, BMI 40-49.9 (morbid obesity) 12/06/2024 Hypercholesterolemia 12/06/2024 Seizures ([facility]) 06/29/2019 Resolved Problems Problem Noted Date Diagnosed Date Resolved Date Spell of abnormal behavior 02/22/2020 0 02/24/2020 Encounters Date Type Department Care Team Description 06/16/2025 Documentation [facility] [address] [facility] [address] [place] [address] Brenda Padilla Medication Prior Authorization (Mounjaro 7.5mg) 04/26/2025 11:00 AM EDT Telemedicine [facility] [address] [facility] [place] [phone] Christophe Crowley NP Type 2 diabetes mellitus without complication, without long-term current use of insulin ([facility]) (Primary Dx); Obesity, Class III, BMI 40-49.9 (morbid obesity) ([facility]); Hypercholesterolemia from Last 3 Months Family History [...] drink = 0.6 oz pur e alcohol) [facility] Utilities Answer Date Recorded In the past 12 months has e [employer], gas, oil, or water [employer] threatened to shut off services in your home? Yes 05/31/2024 Overall Financial Resource Strain (CARDIA) Answe r Date Recorded How hard is it for you to pa y for the very basics like food, housing, medical care, and heating? Somewhat hard 05/31/2024 PHQ-2 Answer Date Recorded Patient Health Questionnaire-2 Score 6 05/31/2024 [place] [facility] [employer] [facility] [employer] - Occupational Stress [...] were you homeless or living in a mcc (including now)? No 05/31/2024 Interpersonal Safety Answer [...] Info) Description 10/25/2025 11:00 AM EDT Telemedicine [facility] [address] [place] [address] Christophe Crowley NP [address] [place] [address] Follow-up disposition: Return in about 6 months (around 10/25/2025) for Christophe, video visit, Tuesdays. Health Maintenance Due Date Last [...] of 2 - PCV) 1995 COVID-19 Vaccine ( - 2024-2 6 season) 2025 Influenza Vaccine (#1) 2025 [...] Date/Time Associated Diagnosis Comments POC HBA1C (GLYCOHEMOGLOBIN) ([facility] ONLY) Routine 12/06/2024 1:17 PM EDT from Last 3 Months or Most Recently Relevant to Health Maintenance Results * POC HBA1C (Glycohemoglobin) ([facility] only) (12/06/2024 1:17 PM EDT) Pathologist [facility] POC Hemoglobin A1C (Glycated) 5.5 4.3 - 6.0 % ED [facility] 12/06/2024 1:24 PM EDT [facility] POINT OF CARE TESTING PROGRAM Average Blood Glucose 108 mg/dL ED [facility] 12/06/2024 1:24 PM EDT [facility] POINT OF CARE TESTING PROGRAM Comment: Interpretive Data AVERAGE BLOOD GLUCOSE ASSOCIATED WITH THIS PERCENT GLYCATED HEMOGLOBIN (BASED ON DCCT) Blood 12/06/2024 1:17 PM EDT 12/06/2024 1:24 PM EDT Narrative [facility] POINT OF CARE TESTING PROGRAM - 12/06/2024 1:24 PM EDT Interpretive Data THE ADA HAS MADE THE FOLLOWING RECOMMENDATIONS HBA1C results in the range of 5.7-6.4% are suggestive of prediabetes. HBA1C results in the range of > or = 6.5% are diagnostic for diabetes. POC TEST(S) ABOVE PERFORMED AT THE PATIENT CARE LOCATION AND OVERSEEN BY THE [facility] POCT PROGRAM. us Christophe Crowley NP POINT OF CARE TEST ORDERABLES Fi nal Result [facility] POINT OF CARE TESTING PROGRAM [address], [place] [address] from Last 3 Months or Most Recently Relevant to Health Maintenance Advance Directives For more information, please contact: [phone] * Full Code (Latest Code Status on File) Date Activated Date Inactivated Comments 02/22/2020 5:03 PM 02/24/2020 4:53 PM Care Teams Directory Clerk Relationship Specialty Start Date End Date Aislinn Merlos PA [address] [place] [id number] PCP - General 08/13/21
--- OUTSIDE RECORDS SUMMARY | 2025-06-20 16:25 | XMS_ITS | Patient Health Record ---
[facility] Organization [facility] Address [address] [place] [address] Care Team Providers Care [facility]cu Specialist Name Role Phone Benedicto Talley MD Unavailable Unavailable DR. Benedicto Talley Unavailable [phone] Migration, Provider Unavailable Unavailable Reason For Referral [...] PANIC ATTACHS; Duration: 10 DX: PANIC ATTACkS [place] Controlled Substance Reporting Database reviewed and patient found to be in compliance with prescription. 10/12/2024 Active atorvastatin 40mg atorvastatin 40mg, 1 (one) Tablet at bedtime for high cholesterol # 90, 09/13/2024, Ref. x1. Active oral at bedtime for high cholesterol; Duration: 90 *[facility] for [facility] and Interaction Alerts* 09/13/2024 [...] every 12 weeks; Duration: 0 *Reorder from [facility] for eRx and Interaction Alerts* 11/04/2024 [...] for neck tension; Duration: 90 *Reorder from [facility] for eRx and Interaction Alerts* 11/04/2024 Active Ferrous Sulfate 325 (65 Fe)MG Ferrous Sulfate 325 (65 Fe)MG, 1 tablet Tablet daily or every other day # 30, 11/09/2019, Ref. x2. Active Oral daily or every other day; Duration: 30 *Pick strength-form from [facility] for eRX* 11/09/2019 Active cholecalciferol (vitamin D3) 50 mcg(2,000 uni cholecalciferol (vitamin D3) 50 mcg(2,000 uni, 1 (one) Tablet daily # 30, 11/20/2022, No Refill. Active oral daily; Duration: 30 *Reorder from [facility] for eRx and Interaction Alerts* 11/20/2022 Active Vitamin B-12 1000 MCG Tablet Vitamin B-12 1000MCG, 1 (one) Tablet daily # 30, 04/27/2021, No Refill. Active Oral daily; Duration: 30 04/27/2021 Active Ozempic 2 mg/dose(8 mg/3 mL Ozempic( 2 mg/dose(8 mg/3 mL subcutaneous 2 mg one weekly ) Active -Hx Entry subcutaneous one weekly; Duration: 0 *Reorder from [facility] for eRx and Interaction Alerts* 11/04/2024 Active PROzac 20 MG Capsule PROzac 20mg, 1 Capsule daily # 90, 12/04/2024, No Refill. Active Oral daily; Duration: 90 12/04/2024 Active Nurtec ODT 75mg Nurtec ODT 75mg, 1 (one) Tablet daily at onset of migraine headache # 8, 01/09/2024, Ref. x2. Active oral daily at onset of migraine headache; Duration: 30 *Reorder from [facility] for eRx and Interaction Alerts* 01/09/2024 [...] Entry Oral daily; Duration: 30 *Reorder from [facility] for eRx and Interaction Alerts* 04/27/2021 Active Immunizations Vaccine Route [place] [id number] Tdap OTH Other/Miscellaneous 10/05/2024 Pending ,ImmunizationName ,' : Tdap (7 years and up) (83667) ,Status,' : Ordered Source Location: <Undefined> Influenza, unspecified formulation IM Intramuscular 03/10/2024 Administered ,ImmunizationNa me ,' : Influenza, inj, MDCK, preservative free, q.valent (85005) ,Status,' : Complete Social History Social History [...] Problem Viral infection of the digestive tract (061813246) Viral intestinal infection, unspecified (A08.4) Active confirmed This appears viral. Discussed OTC medications for symptomatic relief. Educated patient on viral vs bacterial infections and use of antibiotics. Provided return precautions. Reminded patient of the importance of hygiene to prevent transmission. Please re-check if no improvement in 1 week OSIW. Problem Iron deficiency anemia (13185558) Iron deficiency anemia, unspecified (D50.9) Active confirmed Continue OTC Ferrous Sulfate 325 mg daily. Will check CBC w/ diff and iron studies. Problem Vitamin B>12< deficiency anaemia (48353134) Vitamin B12 deficiency anemia, unspecified (D51.9) Active confirmed Problem Type II diabetes mellitus without complication (604690778) Type 2 diabetes mellitus without complications (E11.9) Active confirmed Managed by endocrinology. A1c controlled at this time. Problem Vitamin A deficiency (53612525) Vitamin A deficiency, unspecified (E50.9) Active confirmed Patient states she has recently been diagnosed with Vitamin A deficiency by her cable wirer and started on OTC supplements about 6 weeks ago. Will check Vitamin A levels. Discussed dangers associated with fat-soluble vitamins and not going over recommended daily amount. Problem Vitamin B deficiency (21354959) Deficiency of other specified B group vitamins (E53.8) Active confirmed Rechecking labs today Problem Vitamin D deficiency (88367566) Vitamin D deficiency, unspecified (E55.9) Active confirmed Labs pending. Will call patient with results and treat as indicated. Continue vitamin Vitamin D3, 2000 units a day. Problem Morbid obesity (disorder) (085125879) Morbid (severe) obesity due to excess calories (E66.01) Active confirmed Encouraged heart healthy diet modifications and increased exercise of moderate intensity 3-4 times per week as tolerated. Reviewed the numerous benefits of reducing weight. Problem Hyperlipidemia (94468504) Hyperlipidemia, unspecified (E78.5) Active confirmed Rechecking lipid panel. Continue atorvastatin 40 mg daily. Encouraged lifestyle modification in diet and exercise regimen to reduce cholesterol. - Continue lowering intake of high-saturated fat in diet. - Goal lipid levels: Total cholesterol: < 170 Triglycerides: < 150 HDL: > 40 LDL: < 70 Problem Bipolar disorder (24691233) Bipolar disorder, unspecified (F31.9) Active confirmed Follow up with her psychiatrist and her therapist. Problem Anxiety disorder (484233758) Anxiety disorder, unspecified (F41.9) Active confirmed Continue Prozac. Patient also has Xanax available as needed. Will have our office reach out to [facility] psychiatry to inquire about follow-up. Will refer elsewhere if needed for psychiatry services. Problem Post-traumatic stress disorder (50266680) Post-traumatic stress disorder, unspecified (F43.10) Active confirmed Patient started on Zoloft 50 mg daily. Psychiatrist commented he may consider adding Minipress in case there is no improvement in nightmares. Continue to monitor. Problem Epilepsy (45186396) Epilepsy, unspecified, not intractable, without status epilepticus (G40.909) Active confirmed Agreed to refill one more time in light of the COVID-19 pandemic, however patient needs to get all future refills of her Ativan from her Neurologist who initially prescribed the medication. Clear per [employer] database. Problem Migraine without aura, not refractory (disorder) (570038033) Migraine, unspecified, not intractable, without status migrainosus [...] Patient given strict return precautions. Problem Insomnia (678838899) Insomnia, unspecified (G47.00) Active confirmed Problem Obstructive sleep apnea syndrome (disorder) (80123862) Obstructive sleep apnea (adult) (pediatric) (G47.33) Active confirmed Patient has still not heard from [facility] Pulmonology to schedule sleep study. Will refer to [facility] upon patient request. Problem Carpal tunnel syndrome (57334826) Carpal tunnel syndrome, right upper limb (G56.01) Active confirmed Tendonitis vs CTS. Advised patient she will need to stop crocheting at least for now and will place her in a CTS splint with a thumb stabilizer to help with trigger thumb. Re-check in 2 weeks if no improvement. . Problem Polyneuropathy (50184416) Polyneuropathy, unspecified (G62.9) Active confirmed Problem Benign intracranial hypertension (77556203) Benign intracranial hypertension (G93.2) Active confirmed follow-up with neurology. Problem Compression of brain (74182107) Compression of brain (G93.5) Active confirmed Diagnosed in 2007. Followed by [facility] neurology. Problem Visual disturbance (51728256) Unspecified visual disturbance (H53.9) Active confirmed Called [...] dation. Patient made aware. Problem Otitis media (01940743) Otitis media, unspecified, left ear (H66.92) Active confirmed Starting Cefedinir x 5 days. Recommend OTC Tylenol +/- Motrin for pain and fever control. Return in 2-3 days if no improvement or worsening of pain occurs. Problem Otalgia of right ear (finding) (8354598324) Otalgia, right ear (H92.01) Active confirmed Physical exam unremarkable with no signs of infection. Problem Bilateral otalgia (847978164) Otalgia, bilateral (H92.03) Active confirmed Problem Pain of ear (finding) (131745751) Otalgia, unspecified ear (H92.09) Active confirmed Physical exam unremarkable, with no sign of otitis media or externa. Likely due to seasonal allergies/conge stion causing fluid to build behind TM. Recommended OTC antihistamine. Return as needed for increased pain, fever, or onset of ear drainage. Problem Essential hypertension (19578839) Essential (primary) hypertension (I10) Active confirmed Controlled off of antihypertensiv e at this time. Problem Diastolic heart failure (647991354) Unspecified diastolic (congestive) heart failure (I50.30) Active confirmed Patient reports normal echo by cardiology. No follow up scheduled. Problem Heart failure (30476172) Heart failure, unspecified (I50.9) Active confirmed Stable. Continue current treatment. Follow up with cardiology. Problem Heart disease (48028171) Heart disease, unspecified (I51.9) Active confirmed Echo 12/24/16: quality of study fair, EF 55-60%, nor LV size & fxn, no RWMA. Impaired LV relaxation / grade 1 diastolic dysfxn, trace TR On Lasix. Referring to cardiology. Problem Orthostatic hypotension (77421574) Orthostatic hypotension (I95.1) Active confirmed Orthostatic vitals performed: Laying - Blood pressure 124/74, HR 102 Standing - Blood pressure 118/60, HR 112 After standing for 2 minutes - patient became dizzy and had to sit down. BP 124/70. Findings consistent with orthostatic hypotension. Encouraged patient to drink plenty of fluids, and to avoid standing up too quickly. Problem Acute sinusitis (84230036) Acute sinusitis, unspecified (J01.90) Active confirmed Doxycycline 100 mg 1 p.o. b.i.d. x10 days. Recheck if not better in 3 to 4 days or sooner if worsening. Problem Acute pharyngitis (177726199) Acute pharyngitis, unspecified (J02.9) Active confirmed Rapid strep negative. Problem Acute upper respiratory infection (90903486) Acute upper respiratory infection, unspecified (J06.9) Active confirmed Start daily oral antihistamine and Flonase intranasal therapy for nasal congestion. Also recommend NetiPot sinus rinses, Mucinex for congestion. Recommend throat coat tea, lozenges, Chloraseptic spray for sore throat. If worsening throat pain, swelling in throat, muffling of voice please return to clinic. Problem Acute bronchitis (04770830) Acute bronchitis, unspecified (J20.9) Active confirmed Recheck if not better in 3 to 4 days or sooner if worsening. Problem Chronic sinusitis (52967820) Chronic sinusitis, unspecified (J32.9) Active confirmed Likely viral. Encouraged patient to stay well hydrated and rest as needed. May take benzonatate for cough. Problem Exacerbation of asthma (899787029) Unspecified asthma with (acute) exacerbation (J45.901) Active confirmed Refilling albuterol MDI and starting prednisone. Call 911 for difficulty breathing Problem Uncomplicated asthma (disorder) (625950376) Unspecified asthma, uncomplicated (J45.909) Active confirmed Continue Trelegy daily and albuterol as needed. Sending prescription for spacer chamber. Patient encouraged to increase albuterol inhaler use to every 4-6 hours for the next 2 days and then resume as needed. Problem Gastro-esophageal reflux disease without esophagitis (616130247) Gastro-esophage al reflux disease without esophagitis (K21.9) Active confirmed Avoid NSAIDs. Continue Omeprazole once daily. Patient has known history of reucrrent gastric ulcers secondary to chronic NSAID use. Problem Gastric ulcer (819553747) Gastric ulcer, unspecified as acute or chronic, without hemorrhage or perforation (K25.9) Active confirmed Continue to avoid use of NSAIDs. Repeat EGD in 2020, per GI recommendations . Problem Non-infective enteritis and colitis (629096436) Noninfective gastroenteritis and colitis, unspecified (K52.9) Active confirmed Symptoms likely due to gastroenteritis . VSS, no signs of volume depletion. No fevers, severe pain, bloody/mucoid stools, tolerating fluid PO intake today, and estimated BMs/day < 6. Discussed conservative treatment with symptomatic management, rehydration and bland diet advance as tolerated. Discussed proper hygiene and provided return/ED precautions to patient. Problem Fatty liver (917654374) Fatty (change of) liver, not elsewhere classified [...] alcohol, low saturated fat diet. Problem Urticaria (57719035) Urticaria, unspecified (L50.9) Active confirmed Improving w/ Lyndsey once daily. Problem Osteoarthritis (800969541) Unspecified osteoarthritis, unspecified site (M19.90) Active confirmed Desires to continue use of PRN Naproxen. Will Rx Vimovo for the patient to provide GI protection, however cautioned the patient about regular use of this medication given her hx of gastritis in the past secondary to NSAIDs. Patient agrees with plan. Problem Pain in wrist (61025928) Pain in right wrist (M25.531) Active confirmed Possibly secondary to carpal tunnel syndrome. Recommended patient to wear wrist splint for the next 2 weeks. Try conservative treatment at home including ice/heat, Tylenol as needed for pain. Patient given a written prescription for right wrist splint to pick up driver at pharmacy. Problem Pain in wrist (16675068) Pain in left wrist (M25.532) Active confirmed [...] pain persist. Problem Disorder of wrist joint (694617002) Other specified joint disorders, unspecified wrist (M25.839) Active confirmed See above fo r details. Problem Lumbar radiculopathy (442725116) Radiculopathy, lumbar region (M54.16) Active confirmed MRI L-Spine w/o contrast ordered at last visit, awaiting medicaid approval at this time. Continue PT sessions 2-3x/week with [facility]. Has few weeks left remaining. Problem Spasm (14538358) Other muscle spasm (M62.838) Active confirmed Refilling Flexeril. Back pain appears chronic in nature. Recommend heat and ice massage with gentle stretching for back pain. Problem Acquired trigger finger (5829993) Trigger thumb, right thumb (M65.311) Active confirmed [...] would likely be sufficient. Problem Achilles bursitis (089055161) Achilles tendinitis, unspecified leg (M76.60) Active confirmed Follow up with [facility]. Problem Calculus of kidney (78234141) Calculus of kidney (N20.0) Active confirmed Recommend following back up with Urology for further evaluation. Problem Urinary tract infectious disease (disorder) (93825904) Urinary tract infection, site not specified (N39.0) Active confirmed Patient denies symptom improvement on Macrobid, switching to Bactrim DS. Urine culture sent. Increase fluid intake and urine output, holding urine no longer than two hours if possible before voiding. Problem Abscess of vulva (98795124) Abscess of vulva (N76.4) Active confirmed Followed by [facility] - Continue Bactrim DS 1 tablet BID as directed. Improved s/p I&D performed at last visit. Keep scheduled f/u appt with [facility] for next week. Problem Excessive and frequent menstruation (503670143) Excessive and frequent menstruation with regular cycle (N92.0) Active confirmed Patient is trying to concieve. Treating for SHIKHA at this time, likely due to menorrhagia. Problem Irregular menstruation (62348482) Irregular menstruation, unspecified (N92.6) Active confirmed HCG negative. Problem Abnormal uterine bleeding (19104910658899) Abnormal uterine and vaginal bleeding, unspecified (N93.9) Active confirmed Refill of Provera 20 mg TID x 7 days for AUB. Follow up appt scheduled with [facility] in November 2021. Problem Tachycardia (6848680) Tachycardia, unspecified (R00.0) Active confirmed - Follow up with Cardiology as soon as possible. Problem Elevated blood pressure reading without diagnosis of hypertension (623267100) Elevated blood-pressure reading, without diagnosis of hypertension [...] in 1 month. Problem Shortness of breath (625140301) Shortness of breath (R06.02) Active confirmed Duoneb given with marginal improvement in symptoms. Sending patient to ED for PE work-up. She declines EMS but states that she will drive directly to ED. Charge nurse called. Vital signs stable at discharge. Problem Chest pain (68463584) Other chest pain (R07.89) Active confirmed Recommended follow up with [facility]. Problem Chest pain (11740924) Chest pain, unspecified (R07.9) Active confirmed Awaiting referral to Cardiology at this time. Problem Epigastric pain (01606418) Epigastric pain (R10.13) Active confirmed New abdominal pain since starting Ozempic. Will check labs today. Will call patient with results and treat as indicated. Problem Lower abdominal pain (13863783) Lower abdominal pain, unspecified (R10.30) Active confirmed Recommended checking additional labs such as CBC, CMP, but patient denied at this time. If symptoms continue, recommended she follow up for labs. Problem Abdominal pain (88997159) Unspecified abdominal pain (R10.9) Active confirmed Updating labs today. Checking also pancreatic enzymes. Problem Nausea (669853807) Nausea (R11.0) Active confirmed Nausea is associated with Ozempic injections. Resending prescription for Zofran to her pharmacy. Patient encouraged to eat smaller and more frequent meals. Problem Vomiting (351809818) Vomiting, unspecified (R11.10) Active confirmed Patient tried Zofran with no relief. Will start Phenergan for nausea/vomiting . The patient is aware of the sedative effects of this medication and will not drive or drink alcohol while taking it. Problem Dysphagia (58283744) Dysphagia, unspecified (R13.10) Active confirmed Follow-up with GI. Problem Diarrhea (24319366) Diarrhea, unspecified (R19.7) Active confirmed Likely due to recent antibiotic use - Will send stool culture + C. diff EUGENIA. Avoid Immodium at this time as bacterial etiology can not be excluded. Increase PO hydration at home. Will Rx Bentyl for abdominal cramping as needed. Problem Paresthesia (finding) (62018316) Paresthesia of skin (R20.2) Active confirmed Followed by Neurology. Continue Gabapentin 300 mg at bedtime. Problem Abnormal gait (72177761) Unsteadiness on feet (R26.81) Active confirmed Referring for PT. Problem Dysuria (67876011) Dysuria (R30.0) Active confirmed Urinalysi s positive for excess glucose, negative for blood leukoesterase or nitrites. Sending urine sample for culture and sensitivity. Will call patient with results and treat as indicated. Problem Unspecified symptoms and signs involving the genitourinary system (R39.9) Active confirmed Problem Dizziness and giddiness (456835570) Dizziness and giddiness (R42) Active confirmed Patient does have nystagmus and ear fullness. Will try her on meclizine for symptoms of vertigo. Also recommend Zyrtec and Flonase however patient reports that she is unable to tolerate Flonase. Follow through with cardiology referral. Problem Fever (499877108) Fever, unspecified (R50.9) Active confirmed May be related to cellulitis on her right breast, which started approx. 1 week ago. Consider right breast mammogram vs. ULS if no improvement in 2-3 days. Follow up recommended. Problem Malaise (675208645) Other malaise (R53.81) Active confirmed Continue to follow up with PT for strengthening exercises. Problem Fatigue (48807641) Other fatigue (R53.83) Active confirmed Multifactorial in nature given her comorbidities and sedentary lifestyle. Chronic fatigue. Problem Syncope and collapse (185519821) Syncope and collapse (R55) Active confirmed Cardiology referral pending per [facility] records. ED precautions reviewed. Patient encouraged to check blood sugar if she feels presyncope symptoms. Problem Localized enlarged lymph nodes (684015417) Localized enlarged lymph nodes (R59.0) Active confirmed Mammogram in Jul 2020 - BIRADS2. Will perform ULS of the swollen palpable area in the left supraclavicular region for further evaluation. Possibly related to recent COVID-19 vaccine in the L. deltoid from 3 weeks ago. Problem Symptom: generalized (615330189) Other general symptoms and signs (R68.89) Active [...] reduce viral spread. Problem Blood chemistry abnormal (042216675) Other specified abnormal findings of blood chemistry (R79.89) Active confirmed Redrawing liver panel and hepatitis labs today. Suspect Tylenol caused LFT elevation. Patient to avoid Tylenol and EtOH going forward. Will contact patient with results of lab work. Will consider NAFLD workup if LFTs remain elevated despite discontinuing Tylenol use. Problem Glycosuria (60752026) Glycosuria (R81) Active confirmed UA with ++++ glucose, however FSBS 316 in the office. See diabetes note above. Problem Adult health examination (641271636) Encounter for general adult medical examination without abnormal findings (Z00.00) Active confirmed Discussed appropriate health maintenance and prevention topics with patient. Reviewed vaccinations and screening tests. Discussed healthy lifestyle habits to prevent disease and promote wellbeing. Labs pending, will call patient with results and treat as indicated. Re-check for annual PE in 1 year. Problem History and physical examination, follow-up (638196351) Encounter for follow-up examination after completed treatment for conditions other than malignant neoplasm (Z09) Active confirmed see HPI Problem Screening for malignant neoplasm of cervix (467415233) Encounter for screening for malignant neoplasm of cervix (Z12.4) Active confirmed History of multiple abnormal paps. Refer to [facility] to updating Pap upon patient request. Problem Vaccination given (711375244) Encounter for immunization (Z23) Active confirmed Tdap given by [facility] in Left deltoid Lot:[id number] EXP: 02/23/27 Tdap updated today. Problem test equivocal (319382063) Encounter for test, result unknown (Z32.00) Active confirmed Urine HCG negative. Will perfrom serum qualatative to confirm (patient requested). Avoid restarting Phentermine until lab confirms not . Patient agrees with the plan. Problem test positive (610661364) Encounter for test, result positive (Z32.01) Active confirmed Will perform serum HCG qual/quant performed, since our office is out of urine HCG test at this time. Starting vitamin once daily. Follow up with [facility]/OB if confirmed. Problem care (726315422) Encounter for supervision of normal , unspecified, unspecified trimester (Z34.90) Active confirmed Problem Dietary management surveillance (177876741) Dietary counseling and surveillance (Z71.3) Active confirmed [...] can cause defects. . Problem Counseling requested (152100402) Persons encountering health services in other specified circumstances (Z76.89) Active confirmed Although phentermine may be an okay option for her should she continue to lose weight, in light of recent events, advised that we will hold this prescription for now. Encouraged her to continue weight loss and exercise and after her neurology evaluation consider restarting or discussing an alternative option. Problem Health status (609316554) Other specified health status (Z78.9) Active confirmed Followed by Fert[facility] specialist. Currently on Provera but plans to start Clomid later this year. Problem History of urinary stone (410318107) Personal history of urinary calculi (Z87.442) Active [...] Urology on 01/14. Problem Pure hypercholesterole susie (585109536) Pure hypercholestero lemia, unspecified (E78.00) Active confirmed Check lipid and liver panel. Low-cholesterol diet. Problem Muscle pain (82901698) Myalgia, unspecified site (M79.10) Active confirmed Briefly discussed fibromyalgia with patient. Based on brief interview she does appear to meet criteria but no official diagnosis has been made yet. Would like to further discuss this with patient at future visits to see if we can get her off of Flexeril. Will refill Flexeril today. Problem Inflammatory disorder of breast (690918491) Mastitis without abscess (N61.0) Active confirmed Improving. Will order screening mammogram at this time which patient requested today. No prior screening in the past. Maternal grandmother w/ hx of breast cancer. Problem Lump in upper inner quadrant of left breast (finding) (808115669364473) Unspecified lump in the left breast, upper inner quadrant (N63.22) Active confirmed Mammogram ordered today. Problem Prediabetes (348955176) Prediabetes (R73.03) Active confirmed Problem COVID-19 (969879000) COVID-19 (U07.1) Active confirmed PCR testing today is negative. Problem Esophagitis (disorder) (92569132) Esophagitis, unspecified without bleeding (K20.90) Active confirmed Continue Protonix and Carafate. Problem Headache (48415178) Headache, unspecified (R51.9) Active confirmed Uncontrolled. Patient has not seen [facility] who have recommended neurology consult prior to moving forward with treatment modalities. Resending Flexeril since this has helped somewhat, however I would not recommend this as a terminal superintendent solution. Problem Encounter for screening for COVID-19 (Z11.52) Active confirmed Negative rapid COVID-19/RSV/Fl u via PCR today. Results reviewed with patient. Problem Exposure to acute respiratory syndrome coronavirus 2 (804791929) Contact with and (suspected) exposure to COVID-19 (Z20.822) Active confirmed Problem Depression (557396957) Depression, unspecified (F32.A) Active confirmed Followed by Psychiatry. Problem Low back pain (834131293) Low back pain, unspecified (M54.50) Active confirmed Urinalysis negative for blood, low suspicion for migrating kidney stones. Seems musculoskeletal given tenderness on exam and exacerbated pain with certain movements. Recommend continuing Tylenol for pain relief. Also recommend stretching exercises. Problem Acute cough (4245503800113029 04) Acute cough (R05.1) Active confirmed PCR negative for COVID, flu, RSV. Given short duration of symptoms, Patient advised to treat symptomatically and follow-up if no improvement over the course of 7 to 10 days. Problem Cough (finding) (32446651) Cough, unspecified (R05.9) Active confirmed Isolate until PCR results become available. This does appear viral. Discussed OTC medications for symptomatic relief. Educated patient on viral vs bacterial infections and use of antibiotics. Return precautions given. Patient advised to speak with a medical provider about next steps if they do test positive. Problem Post-acute COVID-19 (disorder) (5587992866) Post COVID-19 condition, unspecified (U09.9) Active confirmed Symptoms consistent with long covid. Educated that these symptoms could last for weeks-months due to COVID-19. Continue to stay hydrated and drink plenty of fluids, stay active. Can treat symptomatically if needed. Problem Obese class III (finding) (930204813) Obesity, class 3 (E66.813) Active confirmed Encouraged heart healthy diet modifications and increased exercise of moderate intensity 3-4 times per week as tolerated. Reviewed the numerous benefits of reducing weight. Problem Body mass index 40+ - severely obese (631386929) Body mass index (BMI) 40.0-44.9, adult (Z68.41) Active confirmed Problem Body mass index 40+ - severely obese (970161032) Body mass index (BMI) 45.0-49.9, adult (Z68.42) Active confirmed Problem Panic disorder (434227822) Panic disorder [episodic paroxysmal anxiety] without agoraphobia [...] that she is seeing. She has contacted [facility]. I have advised her that she also has an appointment with her PCP on Friday. Problem Candidiasis (37303867) Candidiasis, unspecified (B37.9) Inactive confirmed Patient contacts [...] prescription for fluconazole. Problem Hypertensive heart failure (91801965) Hypertensive heart disease with heart failure (I11.0) Inactive confirmed Continue current treatment. Clinically doing well. Problem Seizure (89008585) Unspecified convulsions (R56.9) Inactive confirmed See HPI. Keep scheduled follow up appointment with [facility]. Will allow them to further drive management of this. 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) Inactive confirmed Vital Signs Heart Rate 90 /min 11/04/2024 Temperature 98.40 degrees Fahrenheit 11/04/2024 Height-cm 162.56 cm 11/04/2024 Oximetry 97 % 11/04/2024 Blood pressure diastolic 84 mm Hg 11/04/2024 Weight-kg 108.41 kg 11/04/2024 Height 64.00 in 11/04/2024 Blood pressure systolic 122 mm Hg 11/04/2024 Weight 239.0000 lbs 11/04/2024 BMI 41.02 kg/m2 11/04/2024 Encounters Encounter Location Date Provider Diagnosis [facility] [address] [place] [address] 08/02/2024 Provider Migration [facility] [address] [place] [address] 09/06/2024 Provider Migration [facility] [address] [place] [address] 10/02/2024 Benedicto Talley [facility] [address] [place] [address] 10/05/2024 Provider Migration [facility] [address] [place] [address] 10/14/2024 Provider Migration [facility] [address] [place] [address] 11/04/2024 Provider Migration [facility] [address] [place] [address] 03/05/2025 Provider Migration [facility] [address] [place] [address] 03/06/2025 Provider Migration Plan Of Treatment No Information Insurance Providers Payer Name Payer Address Payer Phone Subscriber Number Group Number Insured Name Patient Relationship to Insured Coverage Start Date Coverage End Date [employer] [address] [address] [place] [address] [id number] Georgia Swanson Self - patient is the insured 1 Medicaid [address] [address] [place] [address] [id number] Georgia Swanson Self - patient is the [...]
--- OUTSIDE RECORDS SUMMARY | 2025-06-20 16:25 | XMS_ITS | Encounter Summary ---
Author Organization [facility] Address [address] [place] [address] Care Team Providers Care Reporter Name Role Phone Aislinn Merlos Primary Care Provider [phone] Reason for Visit * Reason Onset Date Comments Medication Prior Authorization 06/16/2025 M ounjaro 7.5mg Encounter Details Date Type Department Care Team (Late st Contact Info) Description 06/16/2025 Documentation [facility] [address] [facility] [address] [place] [address] Brenda Padilla Medication Prior Authorization (Mounjaro 7.5mg) Social History Tobacco Use Types Packs/Day Years Used Date Smoking Tobacco: Never Smokeless Tobacco: Never Alcohol Use Standard Drinks/Week Comments Not Currently 0 (1 standard drink = 0.6 oz pur e alcohol) [facility] Utilities Answer Date Recorded In the past 12 months has e electric, gas, oil, or water [employer] threatened to shut off services in your home? Yes 05/31/2024 Overall Financial Resource Strain (CARDIA) Answe r Date Recorded How hard is it for you to pa y for the very basics like food, housing, medical care, and heating? Somewhat hard 05/31/2024 PHQ-2 Answer Date Recorded Patient Health Questionnaire-2 Score 6 05/31/2024 [facility] [place] of Occupat ional Health - Occupational Stress [...] any time in the past 12 m [facility], were you homeless or living in a intermediate (including now)? No 05/31/2024 Interpersonal Safety Answer [...] of Assessment Author No 02/22/2020 8:31 PM EDT Quincy Pierson RN * Because of a physical, mental, or emotional condition, do you have difficulty doing errands alone such as visiting a doctor???s office or shopping? (15 years old or older) Answer Date of Assessment Author Yes 02/22/2020 8:31 PM EDT Quincy Pierosn RN documented as of this encounter Mental Status * Because of a physical, mental, or emotional condition, do you have serious difficulty concentrating, remembering, or making decisions? (5 years old or older) Answer Entry Date Author Yes 02/22/2020 8:31 PM EDT Quincy Pierson RN documented in this encounter Progress Notes * Brenda Padilla - 06/16/2025 3:39 PM EST Images from the original note were not included. Received PA request for Eleno THAKKAR not required. documented in this encounter Plan of Treatment Upcoming Encounters Date Type Department Care Team (Late st Contact Info) Description 10/25/2025 11:00 AM EDT Telemedicine [facility] [address] [place] [address] Christophe Crowley NP [address] [place] [address] Follow-up disposition: Return in about 6 months (around 10/25/2025) for carissa Saeed visit, Tuesdays. documented as of this encounter Visit Diagnoses Not on filedocumented in this encounter Care Teams Reporter Relationship Specialty Start Date End Date Aislinn Merlos PA [address] [place] [address] PCP - General 08/13/21 documented as of this encounter
--- OUTSIDE RECORDS SUMMARY | 2025-06-20 16:26 | XMS_ITS | Encounter Summary ---
Author Organization [employer] ([employer]) Address [address] [place] [address] Care Team Providers Care Tech Writer Name Role Phone Naila Vallejo MD Primary Care Provider + Unassigned, Doctor RAMIREZ Primary Care Provider Unav ailable Mehnaz Obando NP Primary Care Provider [phone] [facility] Srinivasan Primary Care Provide r Aislinn Merlos Primary Care Provider Unassigned, Doctor RAMIREZ Primary Care Provider Unav ailable Reason for Visit * Reason Comments Refill Request Encounter Details Date Type Department Care Team (Late st Contact Info) Description 03/28/2016 Refill [facility] [address] [place], [place] [address] Antoine Briceno MD [address] [place] [address] Refill Request Social History Tobacco Use Types [...] Date Author Status No 05/09/2015 10:31 AM Blakn Peck RN A ctive documented in this [...] documented as of this encounter Care Teams Tech Writer Relationship Specialty Start Date End Date Naila Vallejo MD PCP - General Family Medicine 09/20/13 04/01/17 Unassigned, MD Daniella PCP - General 04/02/17 09/09/17 Mehnaz Obando NP PCP - General Internal Medicine 09/10/17 03/01/19 Joseph Moraes [address] [place] [address] PCP - General Group provider 03/02/19 04/25/19 Aislinn Merlos PA [address] [place] [address] [place] [address] PCP - General Family Medicine [...] alcohol or drug abuse patient. [facility] [employer] (a.k[facility]a. [facility])
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
--- OUTSIDE RECORDS SUMMARY | 2025-06-20 16:26 | XMS_ITS | Encounter Summary ---
Author Organization [facility] (a[facility]a. [facility]) Address [address] [place] [address] Care Team Providers Care Advertising Assistant Manager Name Role Phone Unassigned, Doctor Primary Care Provider Unav ailable Encounter Details Date Type Department Care Team (Late st Contact Info) Description 05/21/2024 Prep for Surgery [facility] - Orthopedics Service [address] [facility] [address] [place], [place] [address] Maddi Villa PA-C [address] [place], [place] [id number] Social History Tobacco Use Types Packs/Day Years [...] Answer Date of Assessment Author Status Height 64.016 05/26/2024 8:36 AM LISANDRO Gladis Ceja on Active Weight 4158.76 05/26/2024 8:36 AM EST BrennaMonoelpidio on Active BMI 44.594 05/26/2024 8:36 AM Mono Gironelpidio on Active * BSA Answer Date of Assessment Author Status 2.31 05/26/2024 8:36 AM Laverne Giron Ac tive * Are you deaf or do you [...] Question Answer Entry Date Author Status BMI 44.594 05/26/2024 8:36 AM LISANDRO CejaMonoelpidio on Active * Because of a physical, mental, or emotional condition, do you have serious difficulty concentrating, remembering, or making decisions? (5 years old or older) Answer Entry Date Author Status No 04/27/2021 11:56 PM Rahul Jennings RN Active documented in this encounter Plan [...] documented as of this encounter Care Teams Advertising Assistant Manager Relationship Specialty Start Date End Date Unassigned, [...] alcohol or drug abuse patient. [facility] [employer] (a[facility]a. [facility])
--- OUTSIDE RECORDS SUMMARY | 2025-06-20 16:26 | XMS_ITS | Encounter Summary ---
Author Organization [employer] ([employer] [employer]) Address [address] [place] [address] Care Team Providers Care Motion Picture Film Examiner Name Role Phone Naila Vallejo MD Primary Care Provider + Unassigned, Doctor RAMIREZ Primary Care Provider Unav ailable Mehnaz Obando NP Primary Care Provider [phone] [facility] Srinivasan Primary Care Provide r Aislinn Merlos Primary Care Provider [phone] Unassigned, Doctor RAMIREZ Primary Care Provider Unav ailable Reason for Visit * Reason Comments Refill Request Encounter Details Date Type Department Care Team (Late st Contact Info) Description 04/27/2016 Refill [facility] [address] [place], [place] [id number] Antoine Briceno MD [address] [place] [address] Refill Request Social History Tobacco Use Types [...] documented as of this encounter Care Teams Motion Picture Film Examiner Relationship Specialty Start Date End Date Naila Vallejo MD PCP - General Family Medicine 09/20/13 04/01/17 Unassigned, MD Daniella PCP - General 04/02/17 09/09/17 Mehnaz Obando NP PCP - General Internal Medicine 09/10/17 03/01/19 Joseph Moraes [address] [place] [address] PCP - General Group provider 03/02/19 04/25/19 Aislinn Merlos PA [address] [place] [address] [place] [address] PCP - General Family Medicine [...] prosecute any alcohol or drug abuse patient. [facility] [employer] (a[facility]a. [facility])
--- OUTSIDE RECORDS SUMMARY | 2025-06-20 16:26 | XMS_ITS | Encounter Summary ---
Author Organization [facility] (a[facility]a. [facility]) Address [address] [place] [address] Care Team Providers Care Facing End Trimmer Name Role Phone Mehnaz Obando NP Primary Care Provider [phone] [facility] Srinivasan Primary Care Provide r Aislinn Merlos Primary Care Provider [phone] Unassigned, Doctor Primary Care Provider Unav ailable Encounter Details Date Type Department Care Team (Late st Contact Info) Description 04/14/2018 Prep for Surgery [facility] - Urology Service [address] [facility] [address] [place] [address] Jefe Veliz MD [address] [place] [address] Social History Tobacco Use Types Packs/Day [...] Assessment Author Status No 04/14/2018 11:55 AM Maryls Cevallos RN Active documented as of this [...] DM, HLD. Surgical History: Ankle arth roscopy/surgery (02003) , Appendectomy , Caesarean section , Cholecystectomy , Hernia repair , Hysteroscopy dx sep proc (13340) , Kidney stone extraction , Removal of ovarian cyst(s) (78532) , Liver surgery procedure (59153):biopsy . Hospitalization/Major Diagnostic Procedure: Denies Past Hospitalization. [...] Glucose neg Bilirubin neg Ketones neg Specific [place] 1.010 Occult Blood trace- Intact pH 5.5 [...] documented as of this encounter Care Teams Facing End Trimmer Relationship Specialty Start Date End Date Mehnaz Obando NP PCP - General Internal Medicine 09/10/17 03/01/19 Joseph Moraes [address] [place] [address] PCP - General Group provider 03/02/19 04/25/19 Aislinn Merlos PA [address] [place] [address] [place] [address] PCP - General Family Medicine 04/26/19 03/10/22 Unassigned, DoctorMD [address] [place] [address] [place] [address] PCP - General Family Medicine 03/11/22 documented [...] prosecute any alcohol or drug abuse patient. [facility] [employer] (a[facility] [employer] [facility])
--- OUTSIDE RECORDS SUMMARY | 2025-06-20 16:26 | XMS_ITS | Encounter Summary ---
Author Organization [employer] ([facility]) Address [address] [place] [address] Care Team Providers Care Multimedia Designer Name Role Phone Aislinn Merlos Primary Care Provider [phone] Unassigned, Doctor Primary Care Provider Unav ailable Encounter Details Date Type Department Care Team (Late st Contact Info) Description 11/25/2021 Telemedicine [facility] [address] [place] [address] Nolberto Crystal AttendingMD [address] [place] [address] Social History Tobacco Use Types Packs/Day Years [...] Summary Report for Virtual Visit using the [employer] platform, electronically signed on Date [id number] with [...] (Self Reported) Prescription: diazePAM (Self Reported) Prescription: zoullutmbr-rayivimbokrvl-ierq (Self Reported) Prescription: cyanocobalamin 500 mcg Tab [...] (Self Reported) Prescription: esomeprazole (Self Reported) Prescription: [place] 5-325 mg Tab (Self Reported) Prescription: enoxaparin (Self Reported) Prescription: dextrose 50% in water (Self Reported) Prescription: diazePAM (Self Reported) Prescription: SYMBICORT INHL (Self Reported) Prescription: sxrxayvaig-yedbhdnsghdqv-pkpv (Self Reported) Prescription: sodium chloride (Self Reported) Prescription: oxyCODONE-acetaminophen (Self Reported) Prescription: dextrose 50% in water (Self Reported) Prescription: clqthjuhqe-oefakysjqkcme-derc 50-325-40 mg Tab (Self Reported) Prescription: oxyCODONE-acetaminophen [...] (Self Reported) Prescription: Discharge Equipment: Insulin Pen [place] (Self Reported) Prescription: oxyCODONE-acetaminophen (Self Reported) Prescription: [...] (Self Reported) Prescription: Discharge Equipment: Insulin Pen [place] (Self Reported) Prescription: morphine (Self Reported) Prescription: [...] cyanocobalamin 500 mcg Tab (Self Reported) Prescription: FZFUrooqtvoih-jznqobwhlxx-qtvtxmug-scopoloamine (Self Reported) Prescription: fentaNYL (Self Reported) Prescription: [...] traMADoL-acetaminophen 37.5-325 mg Tab (Self Reported) Prescription: bunuenutzq-qkwpbavmbkmtr-mguq (Self Reported) Prescription: oxyCODONE-acetaminophen (Self Reported) Prescription: [...] 5-325 MG ORAL TAB (Self Reported) Prescription: BCZRWOSZGU-WZBXBHZKXVHQS-KCSF 50-325-40 MG ORAL TAB (Self Reported) Prescription: EXENATIDE 5 MCG/0.02 ML SUBQ PNIJ (Self Reported) Prescription: YGPNANUGXT-EALDCXZVPBNPI-AYVD 50-325-40 MG ORAL TAB (Self Reported) Prescription: [...] % IV BOLUS (Self Reported) Prescription: POTASSIUM WIHSVVV-H3-5.45%NACL 20 MEQ/L IV SOLP (Self Reported) Prescription: [...] 160-4.5 MCG/ACTUATION INHL HFAA (Self Reported) Prescription: FPTFWVIJIJ-JEOBDPFYALUMY-NAUU 50-325-40 MG ORAL TAB (Self Reported) Prescription: [...] ORAL TAB (Self Reported) External Note from [facility] Care Provider [phone], Dionicio [place]ri[place] documented in this encounter Plan [...] documented as of this encounter Care Teams Multimedia Designer Relationship Specialty Start Date End Date Aislinn [place] [place] [address] PCP - General Family Medicine 04/26/19 03/10/22 Unassigned, DoctorMD [address] [place] [address] [place] [place] [address] PCP - General Family Medicine 03/11/22 documented [...] any alcohol or drug abuse patient. [facility] [employer] (a[facility])
--- OUTSIDE RECORDS SUMMARY | 2025-06-20 16:26 | XMS_ITS | Encounter Summary ---
Author Organization [employer] ([employer] Address [address] [place] [address] Care Team Providers Care Prom Burn Off Operator Name Role Phone Naila Vallejo MD Primary Care Provider + Unassigned, Doctor RAMIREZ Primary Care Provider Unav ailable Mehnaz Obando NP Primary Care Provider [phone] Herman Joseph Srinivasan Primary Care Provide r Aislinn Merlos Primary Care Provider [phone] Unassigned, Doctor RAMIREZ Primary Care Provider Unav ailable Reason for Visit * Reason Comments Refill Request Encounter Details Date Type Department Care Team (Late st Contact Info) Description 09/17/2015 Refill [facility] Family Medicine [address] [id number] Naila Vallejo MD [address] [place] [address] Refill Request Social History Tobacco [...] documented as of this encounter Care Teams Prom Burn Off Operator Relationship Specialty Start Date End Date Naila Vallejo MD PCP - General Family Medicine 09/20/13 04/01/17 Unassigned, MD Daniella PCP - General 04/02/17 09/09/17 Mehnaz Obando NP PCP - General Internal Medicine 09/10/17 03/01/19 Joseph Moraes [address] [place] [address] PCP - General Group provider 03/02/19 04/25/19 Aislinn Merlos PA [address] [place] [address] [place] [address] PCP - General Family Medicine [...] prosecute any alcohol or drug abuse patient. [facility] [employer] ([facility] Former[facility])
--- NOTE | 2025-06-20 16:48 | ED_ITS ---
HPI - Wound/Laceration General: Chief Complaint: Wound/Laceration Stated Complaint: fell- neck pain Time Seen by Provider: 06/20/25 16:42 History of Present Illness: 50-year-old female presents emergency ro om has a laceration left side of her neck she states she fell in her kitchen a ground-level mechanical fall she stumbled and fell and managed to land on her neck with the backside of the knife oriented upward. She did this around noon today presents here at 4 PM she also has a partial-thickness laceration on her right index finger. No other injuries she did not strike her head there is no loss of consciousness she denies chest pain. Tetanus is up-to-date Related Data Home Medications ?Medication ?Instructions ?Recorded ?Confirmed fluoxetine 40 mg capsule 40 mg PO DAILY 06/06/2502/21 Previous Rx's ?Medication ?Instructions ?Recorded tizanidine 4 mg tablet 4 mg PO Q6H PRN muscle spast icity 06/20/25 #20 tabs Allergies Allergy/AdvReac Type Severity Reaction Status Date / Time azithromycin Allergy Unknown Verified 06/06/25 11:20 duloxetine Allergy Unknown Verified 06/06/25 11:20 erythromycin base Allergy Unknown Verified 06/06/25 11:20 Gadolinium-Containing Allergy Unknown Verified 06/06/25 11:20 Contrast Medi influenza A (H1N1) virus Allergy Unknown Verified 06/06/25 11:20 vaccine [id number]-split 2008 (From influenza A (H1N1)) Iodinated Contrast Media Allergy Unknown Verified 06/06/25 11:20 lactase Allergy Unknown Verified 06/06/25 11:20 latex Allergy Unknown Verified 06/06/25 11:20 metoclopramide Allergy Unknown Verified 06/06/25 11:20 montelukast Allergy Unknown Verified 06/06/25 11:20 nitroglycerin Allergy Unknown Verified 06/06/25 11:20 NSAIDS (Non-Steroidal Allergy Unknown Verified 06/06/25 11:20 Anti-Inflamma Penicillins Allergy Unknown Verified 06/06/25 11:20 prochlorperazine Allergy Unknown Verified 06/06/25 11:20 shellfish derived Allergy Unknown Verified 06/06/25 11:20 tapentadol Allergy Unknown Verified 06/06/25 11:20 Physical Exam Const: COMMON NORMALS: no acute distress GENERAL APPEARANCE: cooperative and comfortable ORIENTATION/CONSCIOUSNESS: Yes awake, Yes oriented to person, Yes oriented to place and Yes oriented to time HENMT: COMMON NORMALS: normocephalic, atraumatic and hearing grossly normal bilaterally HEAD & SCALP: normocephalic and atraumatic Neck/C-Spine: OTHER: There is a horizontal laceration approximately 1 inch with 1/2 inch extension superiorly at the center. No active bleeding it is superficial. It is located middle of the neck in an anterior posterior orientation. Wound is full-th ickness but not penetrating no penetration of the underlying soft tissues past the skin. Resp: COMMON NORMALS: normal respiratory effort, No retractions, No use of accessory muscles and clear to auscultation bilaterally AUSCULTATION: clear to auscultation bilaterally Cardio: COMMON NORMALS: regular rate, regular rhythm and No murmurs present (Cardio) RATE: regular rate RHYTHM: regular rhythm GI: COMMON NORMALS: Soft to palpation and No hepatosplenomegaly present AUSCULTATION: Yes normoactive bowel sounds PALPATION: Yes Soft to palpation, No Tenderness to palpation present (GI), No Guarding due to palpation present (GI) and Yes No hepatosplenomegaly present Extremity: COMMON NORMALS: normal to inspection, capillary refill normal, no clubbing, cyanosis or edema, no calf tenderness and no pedal edema Neuro: SENSORIUM/ORIENTATION: Yes oriented to person, Yes oriented to place and Yes oriented to time Procedures Laceration Laceration 1: Site: neck Side (If applicable): left Size (cm): 3.75 Description: stellate Depth: simple, single layer Local Anesthetic: lidocaine 1% Amount of anesthesia used (mL): 4 Pre-repair: wound explored, irrigated extensively and deep structures intact Skin layer closed with: nylon Size (cm): 5-0 Technique: simple, interrupted (The vertical portion closed with 2 interrupted sutures of 5-0 nylon) and running (Horizontal portion closed with a single running suture of 5-0 nylon) Course Vital Signs: Vital signs: Vital Signs Temperature 98.4 F 06/20/25 16:21 Pulse Rate 104 H 06/20/25 16:21 Respiratory Rate 18 06/20/25 16:21 Blood Pressure 181/106 06/20/25 16:21 Pulse Oximetry 100 06/20/25 16:21 Oxygen Delivery Me thod Room Air 06/20/25 16:21 MDM - Wound/Laceration Medical Decision Making Wound closed with 5-0 nylon. Patient reports her tetanus is up-to-date. Neurologically intact no focal neurologic deficits are noted on exam. X-ray of cervical spine negative for acute fracture Chronic osteoarthritic changes noted. Discharge patient will apply topical antibiotic into the wound twice daily until healed. Sutures should be removed in 7 days. Patient given tizanidine for muscle aches and pain she can take along with Tylenol. Medical Records I reviewed the patient's medical records. Lab Data Radiology Impressions Cervical Spine X-Ray 06/20/25 17:42 IMPRESSION: 1. No acute displaced fracture, subluxation or dislocation. 2. Mild skeletal degenerative; and other chronic/non-acute findings as described above. COMMENTS: If symptoms persist or progress, or if occult fracture remains a concern follow-up CT may be considered. All radiology interpretation(s) finalized by discharge Discharge Plan Discharge Patient Disposition: Home Clinical Impression: Laceration, Neck pain Condition: Stable Prescriptions: New tizanidine 4 mg tablet 4 mg PO Q6H PRN (Reason: muscle spasticity) Qty: 20 0RF Rx Instructions: do not exceed 3 doses per 24 hrs No Action fluoxetine [Prozac] 40 mg Capsule 40 mg PO DAILY Discharge Orders: Discharge ED (Routine); Ordered 06/20/25 Ordered By: Russ Byrd Patient Instructions: Opioid Safety, Pain Management, Patient Portal & Vipin Instructions Activity Restrictions/Additional Instructions: Thank you for choosing [facility] for your healthcare needs today. It is very important that you follow up as instructed or that you return to the Emergency Department should you have concerns or if your condition changes or worsens in any way. Emergency department visits are focused on emergent conditions, in some cases you may require further evaluation on an outpatient basis. You were seen in the emergency room after a fall. He did sustain a laceration of the left side of your neck that is closed with sutures the sutures should removed in 7 days. Apply [id number] topical antibiotic ointment to the wounds until cleared healed. X-rays of your neck did not show any acute fracture. (Please note that included in your discharge packet is information concerning opioid safety and pain management. This information is given to all patients were discharged from the ER regardless of their discharge diagnosis or the medicines they usually take or are prescribed.) Print Language: Bulgarian Coding Level of Care Code ED Compliance Aide for Jasper Hester
--- NOTE | 2025-06-20 17:42 | XRR_ITS ---
PROCEDURE INFORMATION: Exam: XR Cervical Spine Exam date and time: 06/20/2025 5:49 PM Age: 50 years old Clinical indication: Injury or trauma; Fall; Blunt trauma; Additional info: Fall - neck pain TECHNIQUE: Imaging protocol: Radiologic exam of the cervical spine. Views: 2 or 3 views. Total images: 535 COMPARISON: 1. CT head wo con* [id number] 06/06/2025 10:43 PM 2. CR XR chest 1V portable [id number] 06/06/2025 11:30 AM FINDINGS: Bones/joints: Mild generalized degenerative changes of the vertebral column characterized primarily by multilevel osteophyte formation, and degenerative facet arthrosis commensurate with patient's age. No acute displaced fracture, subluxation or dislocation. No intrinsic osseous abnormality identified. Soft tissues: Soft tissues are normal as visualized, demonstrating no masses or swelling/induration. Teeth: Mandibular and maxillary alveolar ridge resorption consistent with edentulism. XR/XR cervical spine 3V* [id number] IMPRESSION: 1. No acute displaced fracture, subluxation or dislocation. 2. Mild skeletal degenerative; and other chronic/non-acute findings as described above. COMMENTS: If symptoms persist or progress, or if occult fracture remains a concern follow-up CT may be considered.
== END 2025-06-20 18:25 | disposition home or self-care (01) ==
PROVIDERS: Emergency Provider Family Medicine
DX: S11.91XA Laceration without foreign body of unspecified part of neck, initial encounter (principal); W18.30XA Fall on same level, unspecified, initial encounter
CPT/HCPCS: 12002; 72040; 99283; J9999

== ENCOUNTER 2025-06-23 11:40 | Emergency (ER) | payer MEDICAID, SELFPAY ==
--- OUTSIDE RECORDS SUMMARY | 2024-04-16 05:00 | XMS_ITS ---
Author Organization [facility] [address] Address [address] [facility] [address] [place] [address] Care Team Providers Care Senior Qualitative Researcher Name Role Phone Sunni Ramon Primary Care Provider Benoit Chance Unavailable [phone] Mike Diego Unavailable [phone] REASON FOR VISIT B/L Arm Medications Medication [...] W/U Status Risk Notes Problem Lumbar radiculopathy (580167424) Radiculopat hy, lumbar region (M54.16) Active confirmed Encounters Encounter Location Date Provider Diagnosis [facility] [address] [place] [address] 04/16/2024 Mike Diego Radiculopathy, lumbar region M54.16 Assessments Encounter Date Diagnosis (ICD Code) Assessment Notes Treatment Notes Treatment Clinical Notes Section Notes 04/16/2024 Radiculopathy, lumbar region (ICD-10 - M54.16) Plan Of Treatment No Information Progress Notes * Cyrus SWANSONАннаOB:1975 (50 yo F)Acc No.[id number]:04/16/2024 Patient: Georgia Hong Provider: Vijaya Diego DO :1975 A ge:48 Y S ex:Female Date:04/16/2024 Address:[address] [place], [place] [id number] Pcp:Sunni Ramon Subjective: * Chief Complaints: * [...] Procedure Codes: 9 5886 Needle electromyography, each [id number] NRV CNDJ TEST 9-10 STUDIES Billing Information: * Procedure Codes: 23034 Needle electromyography, each extremity. 42731 NRV CNDJ TEST 9-10 STUDIES. * Electronic signature of Mike Diego DO on 06/23/2025 at 12:46 PM EST Sign off status: Pending * Provider: Vijaya Diego DO Date: Generated for Xenia valdez/Fabio/Maude on: 08/24/2024 12:46 PM EST
--- OUTSIDE RECORDS SUMMARY | 2024-04-19 05:20 | XMS_ITS ---
Author Organization [facility] [address] Address [address] [facility] [address] [place] [address] Care Team Providers Care Dealer Compliance Representative Name Role Phone Sunni Ramon Primary Care Provider Benoit Chance [phone] REASON FOR VISIT No Physical Therapy Social History Sex Assigned At : Social History Observation Description Sex Assigned At Female Encounters Encounter Location Date Provider Diagnosis [facility] [address] [facility] [place] [address] 04/19/2024 Benoit Patton Plan Of Treatment No Information Progress Notes * Wily SWANSONOB:1975 (50 yo F)Acc No.[id number]:04/19/2024 Progress Note Patient: Georgia Hong Provider: GIANNI Wilcox :1975 A ge:48 Y S ex:Female Date:04/19/2024 Address:[address] [place], [place] [phone] Pcp:Sunni Ramon Subjective: * Chief Complaints: * N o Physical Therapy Billing Information: * Procedure Codes: * Electronic signature of TRICE Mathis on 06/23/2025 at 12:46 PM EST Sign off status: Pending * Provider: GIANNI Wilcox Date: Generated for Printi ng/Faxing/eTransmitting on: 1 08/24/2024 12:46 PM EST
--- OUTSIDE RECORDS SUMMARY | 2024-06-16 07:30 | XMS_ITS ---
[facility] Organization [facility] Address [address] [place] [address] Care Team Providers Care Dowel Maker Name Role Phone Benedicto Talley MD Unavailable Unavailable Migration, Provider Unavailable Unavailable REASON FOR VISIT Follow Up Visit Encounters Encounter Location Date Provider Diagnosis [facility] [address] [place] [address] 06/16/2024 Provider Migration Plan Of Treatment No Information Progress Notes * Georgia ARAGONDOB:[birth year] (50 yo F)Acc No.[id number]:06/16/2024 Progress Notes Patient: Geo godinezGeorgia Provider: Km Frank :1975 A ge:49 Y S ex:Female Date:06/16/2024 Address:[address] [place] [address] Subjective: * Chief Complaints: * F ollow Up Visit * Electronic signature of Prov ider Migration on 06/23/2025 at 12:45 PM EST Sign off status: Pending * Provider: Km to Migration Date: 08/17/2023 Generated for Russelli ng/Fabio/eTransmitting on: 08/24/2024 12:45 PM EST
--- OUTSIDE RECORDS SUMMARY | 2024-07-08 04:10 | XMS_ITS ---
Author Organization [facility] [address] Address [address] [facility] [address] [place] [address] Care Team Providers Care Meat Process Worker Name Role Phone Sunni Ramon Primary Care Provider Benoit Chance [phone] REASON FOR VISIT Pt Personal Reasons Social History Sex Assigned At : Social History Observation Description Sex Assigned At Female Encounters Encounter Location Date Provider Diagnosis [facility] [address] [facility] [address] 07/08/2024 Benoit Patton Plan Of Treatment No Information Progress Notes * Wily SWANSONOB:1975 (50 yo F)Acc No.[id number]:07/08/2024 Progress Note Patient: Georgia Hong Provider: GAINNI Wilcox :1975 A ge:49 Y S ex:Female Date:07/08/2024 Address:[address] [place], [place] [phone] Pcp:Sunni Ramon Subjective: * Chief Complaints: * P t Personal Reasons Billing Information: * Procedure Codes: * Electronic signature of TRICE Mathis on 06/23/2025 at 12:46 PM EST Sign off status: Pending * Provider: GIANNI Wilcox Date: 0 07/08/2024 Generated for Printi ng/Faxing/eTransmitting on: 1 08/24/2024 12:46 PM EST
--- OUTSIDE RECORDS SUMMARY | 2024-08-02 05:00 | XMS_ITS ---
Author Organization [facility] Address [address] [place] [address] Care Team Providers Care Employment Appeals Examiner Name Role Phone Benedicto Talley MD Unavailable Unavailable Migration, Provider Unavailable Unavailable REASON FOR VISIT Office Visit Vital Signs Temperature 98.10 degrees Fahrenheit 025 Blood pressure systolic 102 mm Hg 08/02/19 25 Blood pressure diastolic 72 mm Hg 025 Heart Rate 88 /min 08/02/2024 Height 64.00 in 08/02/2024 Weight 253.0000 lbs 08/02/2024 BMI 43.42 kg/m2 08/02/2024 Oximetry 99 % 08/02/2024 Height-cm 162.56 cm 08/02/2024 Weight-kg 114.76 kg 08/02/2024 Encounters Encounter Location Date Provider Diagnosis [facility] [address] [place] [address] 08/02/2024 Provider Migration Plan Of Treatment No Information Progress Notes * Georgia ARAGONDOB:[birth year] (50 yo F)Acc No.[id number]:08/02/2024 Progress Notes Patient: Geo Georgia godinez Provider: Km Frank :1975 A ge:49 Y S ex:Female Date:08/02/2024 Address:[address] [place], [place] [phone] Subjective: * Chief Complaints: * O ffice Visit Objective: * Vitals: B P: 102/72 mm Hg, HR: 88 /min, Temp: 98.10 F, Oxygen sat %: 99 %, Wt: 253.0000 lbs, Wt-k.76 kg, Ht: 64.00 in, Ht-cm: 162.56 cm, BMI: 43.42 Index. Plan: * Procedure Codes: 3 078F DIAST BP < 80 MM [id number] SYST BP LT 130 MM [id number] BODY MASS INDEX DOCD Billing Information: * Procedure Codes: 3078F DIAST BP < 80 MM HG. 3074F SYST BP LT 130 MM HG. 3008F BODY MASS INDEX DOCD. * Electronic signature of Prov ider Migration on 06/23/2025 at 12:46 PM EST Sign off status: Pending * Provider: Km to Migration Date: 0 08/02/2024 Generated for Xenia valdez/Fabio/Maude on: 1 08/24/2024 12:46 PM EST
--- OUTSIDE RECORDS SUMMARY | 2024-09-06 03:30 | XMS_ITS ---
Author Organization [facility] Address [address] [place] [address] Care Team Providers Care English Adjunct Faculty Name Role Phone Benedicto Talley MD Unavailable [...] 09/06/2024 Encounters Encounter Location Date Provider Diagnosis [facility] [address] [place] [address] 09/06/2024 Provider Migration Plan Of Treatment No Information Progress Notes * Georgia ARAGONDOB:[birth year] (50 yo F)Acc No.[id number]:09/06/2024 Progress Notes Patient: Geo Georgia godinez Provider: Km to Migration :1975 A ge:49 Y S ex:Female Date:09/06/2024 Address:[address] [place], [place] [phone] Subjective: * Chief Complaints: * F ollow [...] of Prov ider Migration on 06/23/2025 at 12:49 PM EST Sign off status: Pending * Provider: Km to Migration Date: 0 09/06/2024 Generated for Xenia valdez/Fabio/Rolandoitting on: 1 08/24/2024 12:49 PM EST
--- OUTSIDE RECORDS SUMMARY | 2024-10-02 04:45 | XMS_ITS ---
Author Organization [facility] Address [address] [place] [address] Care Team Providers Care Water Systems Engineer Name Role Phone Benedicto Talley MD Unavailable Unavailable DR. Benedicto Talley Unavailable [phone] REASON FOR VISIT Walk-in Appointment Vital Signs Temperature 98.40 degrees Fahrenheit 025 Blood pressure systolic 130 mm Hg 10/03/19 25 Blood pressure diastolic 78 mm Hg 025 Heart Rate 85 /min 10/02/2024 Height 64.00 in 10/02/2024 Weight 250.2000 lbs 10/02/2024 BMI 42.94 kg/m2 10/02/2024 Oximetry 99 % 10/02/2024 Height-cm 162.56 cm 10/02/2024 Weight-kg 113.49 kg 10/02/2024 Encounters Encounter Location Date Provider Diagnosis [facility] [address] [place] [address] 10/02/2024 Benedicto Talley Plan Of Treatment No Information Progress Notes * Georgia ARAGONDOB:[birth year] (50 yo F)Acc No.[id number]:10/02/2024 Patient: Geo godinez Georgia Meza Provider: Georgia Talley MD :1975 A ge:49 Y S ex:Female Date:10/02/2024 Address:[address] [place], [place] [phone] Subjective: * Chief Complaints: * W alk-in Appointment Objective: * Vitals: B P: 130/78 mm Hg, HR: 85 /min, Temp: 98.40 F, Oxygen sat %: 99 %, Wt: 250.2000 lbs, Wt-k.49 kg, Ht: 64.00 in, Ht-cm: 162.56 cm, BMI: 42.94 Index. * Electronic signature of DR. Benedicto Talley MD on 06/23/2025 at 12:46 PM EST Sign off status: Pending * Provider: Georgia Talley MD Date: 0 10/02/2024 Generated for Xenia valdez/Fabio/Rolandoitting on: 1 08/24/2024 12:46 PM EST
--- OUTSIDE RECORDS SUMMARY | 2024-10-02 04:45 | XMS_ITS ---
Author Organization [facility] are Address [address] [place] [address] Care Team Providers Care Horticultural Technical Officer Name Role Phone Tristen Trish Sunni Primary Care Provider Benedicto Talley MD Unavailable Unavailable DR. Benedicto Talley Unavailable [phone] REASON FOR VISIT Walk-in Appointment Vital Signs Temperature 98.40 degrees Fahrenheit 025 Blood pressure systolic 130 mm Hg 10/03/19 25 Blood pressure diastolic 78 mm Hg 025 Heart Rate 85 /min 10/02/2024 Height 64.00 in 10/02/2024 Weight 250.2000 lbs 10/02/2024 BMI 42.94 kg/m2 10/02/2024 Oximetry 99 % 10/02/2024 Height-cm 162.56 cm 10/02/2024 Weight-kg 113.49 kg 10/02/2024 Encounters Encounter Location Date Provider Diagnosis [facility] [address] [place] [address] 10/02/2024 Benedicto Talley Plan Of Treatment No Information Progress Notes * Georgia ARAGNODOB:[birth year] (50 yo F)Acc No.[id number]:10/02/2024 Progress Notes Patient: Geo godinez Georiga Meza Provider: Georgia Talley MD :1975 A ge:49 Y S ex:Female Date:10/02/2024 Address:[address] [place], [place] [phone] Pcp:MRS. Sunni Ramon Subjective: * Chief Complaints: * W alk-in Appointment Objective: * Vitals: B P: 130/78 mm Hg, HR: 85 /min, Temp: 98.40 F, Oxygen sat %: 99 %, Wt: 250.2000 lbs, Wt-k.49 kg, Ht: 64.00 in, Ht-cm: 162.56 cm, BMI: 42.94 Index. * Electronic signature of DR. Benedicto Talley MD on 06/23/2025 at 12:48 PM EST Sign off status: Pending * Provider: Georgia Talley MD Date: 0 10/02/2024 Generated for Xenia valdez/Fabio/Rolandoitting on: 1 08/24/2024 12:48 PM EST
--- OUTSIDE RECORDS SUMMARY | 2024-10-05 03:00 | XMS_ITS ---
Author Organization [facility] Address [address] [place] [address] Care Team Providers Care Dog Breeder Name Role Phone Benedicto Talley MD Unavailable Unavailable Migration, Provider Unavailable Unavailable REASON FOR VISIT Annual Physical Immunizations Vaccine [place] [address] Tdap OTH Other/Miscellaneous 10/05/2024 Pending ,ImmunizationName,' : Tdap (7 years and up) (74554) ,Status,' : Ordered Source Location: <Undefined> Vital Signs Temperature 98.50 degrees Fahrenheit 025 Blood pressure systolic 120 mm Hg 10/06/19 25 Blood pressure diastolic 80 mm Hg 025 Heart Rate 76 /min 10/05/2024 Height 64.00 in 10/05/2024 Weight 243.6000 lbs 10/05/2024 BMI 41.81 kg/m2 10/05/2024 Oximetry 99 % 10/05/2024 Height-cm 162.56 cm 10/05/2024 Weight-kg 110.50 kg 10/05/2024 Encounters Encounter Location Date Provider Diagnosis [facility] [address] [place] [address] 10/05/2024 Provider Migration Plan Of Treatment No Information Progress Notes * Georgia ARAGONDOB:[birth year] (50 yo F)Acc No.[id number]:10/05/2024 Progress Notes Patient: Geo Georgia godinez Provider: Km to Migration :1975 A ge:49 Y S ex:Female Date:10/05/2024 Address:[address] [place], [place] [phone] Subjective: * Chief Complaints: * A nnual Physical * Ocular Surgical History: Objective: * Vitals: B P: 120/80 mm Hg, HR: 76 /min, Temp: 98.50 F, Oxygen sat %: 99 %, Wt: 243.6000 lbs, Wt-k.50 kg, Ht: 64.00 in, Ht-cm: 162.56 cm, BMI: 41.81 Index. Vision Examination: Plan: * Immunizations: 14228 Tdap (Route: Other/Miscellaneous) (Pending) * Procedure Codes: 9 0471 IMMUNIZATION [id number] TDAP VACCINE >7 TE4078I DIAST BP 80-89 MM [id number] SYST BP LT 130 MM [id number] BODY MASS INDEX [id number] BRIEF EMOTIONAL/BEHAV ASSMT Billing Information: * Procedure Codes: 13505 IMMUNIZATION ADMIN. 10072 TDAP VACCINE >7 IM. 3079F DIAST BP 80-89 MM HG. 3074F SYST BP LT 130 MM HG. 3008F BODY MASS INDEX DOCD. 59189 BRIEF EMOTIONAL/BEHAV ASSMT. * Electronic signature of Prov ider Migration on 06/23/2025 at 12:48 PM EST Sign off status: Pending * Provider: Km to Migration Date: 0 10/05/2024 Generated for Xenia valdez/Fabio/Rolandoitting on: 1 08/24/2024 12:48 PM EST
--- OUTSIDE RECORDS SUMMARY | 2024-10-05 03:00 | XMS_ITS ---
Author Organization [facility] are Address [address] [place] [address] Care Team Providers Care Customer Service Assistant Name Role Phone MRS. Sunni Ramon Primary Care Provider Benedicto Talley MD Unavailable Unavailable Results Component Value Reference Range Notes BLOOD GLUCOSE-HOME MONITOR ( 15447) Reviewed date:10/05/2024 12:00:00 AM Interpretation: Performing Lab: Notes/Report: BLOOD GLUCOSE-HOME MONITOR 83 NR URINALYSIS W/O MICROSCOPY ( 1002) Reviewed date:10/05/2024 12:00:00 AM Interpretation: Performing [...] Vaccine Route Administration [place] 34433 TDAP IM Intramuscular 10/05/2024 Pending ,Immuniz ationName,' : Tdap (7 years and up) (99878) ,Status,' : Ordered Vital Signs Temperature 98.50 degrees Fahrenheit 025 Blood pressure systolic 120 mm Hg 10/06/19 25 Blood pressure diastolic 80 mm Hg 025 Heart Rate 76 /min 10/05/2024 Height 64.00 in 10/05/2024 Weight 243.6000 lbs 10/05/2024 BMI 41.81 kg/m2 10/05/2024 Oximetry 99 % 10/05/2024 Height-cm 162.56 cm 10/05/2024 Weight-kg 110.50 kg 10/05/2024 Encounters Encounter Location Date Provider Diagnosis [facility] [address] [place] [address] 10/05/2024 Sunni Ramon Plan Of Treatment No Information Progress Notes * Georgia ARAGON JDOB:[birth year] (50 yo F)Acc No.[id number]:10/05/2024 Progress Notes Patient: Georgia Hong Provider: CITLALLI Delgado :1975 A ge:49 Y S ex:Female Date:10/05/2024 Address:[address] [place], [place] [phone] Subjective: * Chief Complaints: * A nnual Physical * Ocular Surgical History: Objective: * Vitals: B P: 120/80 mm Hg, HR: 76 /min, Temp: 98.50 F, Oxygen sat %: 99 %, Wt: 243.6000 lbs, Wt-k.50 kg, Ht: 64.00 in, Ht-cm: 162.56 cm, BMI: 41.81 Index. Vision Examination: Plan: * Treatment: Value Reference Range B LOOD GLUCOSE-HOME MONITOR 83 NR ?LAB: URINALYSIS W/O MICROSCOPY (82723) (Collection Date & Time - 10/05/2024)* Value [...] - URINE SEDIMENT x NR * Immunizations: 86230 TDAP (Route: Intramuscular) (Pending) * Labs: * L ab: BLOOD GLUCOSE-HOME MONITOR (96978) (Collection Date & Time - 10/05/2024) Value Reference Range B LOOD GLUCOSE-HOME MONITOR 83 NR * BLOOD GLUCOSE-HOME MONITOR: AbnormalFlags: N ?Lab: URINALYSIS W/O MICROSCOPY (16212) (Collection Date & Time - 10/05/2024)* Value [...] N * Procedure Codes: 9 0471 IMMUNIZATION [id number] TDAP VACCINE >7 [id number] DIAST BP 80-89 MM [id number] SYST BP LT 130 MM [id number] BODY MASS INDEX [id number] BRIEF EMOTIONAL/BEHAV ASSMT Billing Information: * Procedure Codes: 48410 IMMUNIZATION ADMIN. 55904 TDAP VACCINE >7 IM. 3079F DIAST BP 80-89 MM HG. 3074F SYST BP LT 130 MM HG. 3008F BODY MASS INDEX DOCD. 56347 BRIEF EMOTIONAL/BEHAV ASSMT. * Electronic signature of MRS. Moeller GIANNI Ramon on 06/23/2025 at 12:47 PM EST Sign off status: Pending * Provider: CITLALLI Delgado Date: 0 10/05/2024 Generated for Xenia valdez/Fabio/Maude on: 1 08/24/2024 12:47 PM EST
--- OUTSIDE RECORDS SUMMARY | 2024-10-05 04:10 | XMS_ITS ---
Author Organization [facility] Address [address] [facility] [address] [place] [address] Care Team Providers Care Education Professional Name Role Phone Sunni Ramon Primary Care Provider Benoit Chance [phone] REASON FOR VISIT C Misc Reason Medications [...] Female Encounters Encounter Location Date Provider Diagnosis [facility] [address] [place] [address] 10/05/2024 Benoit Patton Plan Of Treatment No Information Progress Notes * Wily SWANSONOB:1975 (50 yo F)Acc No.[id number]:10/05/2024 Progress Note Patient: Georgia Hong Provider: GIANNI Wilcox :1975 A ge:49 Y S ex:Female Date:10/05/2024 Address:[address] [place], [place] [phone] Pcp:Sunni Ramon Subjective: * Chief Complaints: * [...] signature of TRICE Mathis on 06/23/2025 at 12:47 PM EST Sign off status: Pending * Provider: GIANNI Wilcox Date: 0 10/05/2024 Generated for Xenia Munoz/Maude on: 1 08/24/2024 12:47 PM EST
--- OUTSIDE RECORDS SUMMARY | 2024-10-14 04:00 | XMS_ITS ---
[facility] Organization [facility] Address [address] [place] [address] Care Team Providers Care Dog Food Dough Mixer Name Role Phone Benedicto Talley MD Unavailable Unavailable Migration, Provider Unavailable Unavailable REASON FOR VISIT Annual Physical Encounters Encounter Location Date Provider Diagnosis [facility] [address] [place] [address] 10/14/2024 Provider Migration Plan Of Treatment No Information Progress Notes * [place] ARAGONDOB:[birth year] (50 yo F)Acc No.[id number]:10/14/2024 Progress Notes Patient: Geo godinezGeorgia Provider: Km to Migration :1975 A ge:49 Y S ex:Female Date:10/14/2024 Address:[address] [place] [address] Subjective: * Chief Complaints: * A nnual Physical * Ocular Surgical History: Objective: Vision Examination: * Electronic signature of Prov ider Migration on 06/23/2025 at 12:48 PM EST Sign off status: Pending * Provider: Km to Migration Date: 0 10/14/2024 Generated for Xenia valdez/Fabio/Maude on: 1 08/24/2024 12:48 PM EST
--- OUTSIDE RECORDS SUMMARY | 2024-10-14 04:00 | XMS_ITS ---
Author Organization [facility] are Address [address] [place] [address] Care Team Providers Care Call Worker Name Role Phone MRS. Sunni Ramon Primary Care Provider [phone] Benedicto Talley MD Unavailable REASON FOR VISIT Annual Physical Encounters Encounter Location Date Provider Diagnosis [facility] [address] [place] [address] 10/14/2024 Sunni Ramon Plan Of Treatment No Information Progress Notes * SWANSON, [place] JDOB:[birth year] (50 yo F)Acc No.[id number]:10/14/2024 Progress Notes Patient: [place] Hong Provider: CITLALLI Delgado :1975 A ge:49 Y S ex:Female Date:10/14/2024 Address:[address] [place] [address] Subjective: * Chief Complaints: * A nnual Physical * Ocular Surgical History: Objective: Vision Examination: * Electronic signature of MRS. Moeller GIANNI Ramon on 06/23/2025 at 12:49 PM EST Sign off status: Pending * Provider: CITLALLI Delgado Date: 0 10/14/2024 Generated for Xenia valdez/Fabio/eTransmitting on: 1 08/24/2024 12:49 PM EST
--- OUTSIDE RECORDS SUMMARY | 2024-11-04 03:00 | XMS_ITS ---
Author Organization [facility] Address [address] [place] [address] Care Team Providers Care Reinforced Concrete Inspector Name Role Phone Benedicto Talley MD Unavailable [...] 11/04/2024 Encounters Encounter Location Date Provider Diagnosis [facility] [address] [place] [address] 11/04/2024 Provider Migration Plan Of Treatment No Information Progress Notes * [place] ARAGONDOB:[birth year] (50 yo F)Acc No.[id number]:11/04/2024 Progress Notes Patient: Geo [place] godinez Provider: Km to Migration :1975 A ge:49 Y S ex:Female Date:11/04/2024 Address:[address] [place], [place] [phone] Subjective: * Chief Complaints: * F ollow Up Visit Objective: * Vitals: B P: 122/84 mm Hg, HR: 90 /min, Temp: 98.40 F, Oxygen sat %: 97 %, Wt: 239.0000 lbs, Wt-k.41 kg, Ht: 64.00 in, Ht-cm: 162.56 cm, BMI: 41.02 Index. Plan: * Procedure Codes: 3 079F DIAST BP 80-89 MM [id number] SYST BP LT 130 MM [id number] BODY MASS INDEX DOCD Billing Information: * Procedure Codes: 3079F DIAST BP 80-89 MM HG. 3074F SYST BP LT 130 MM HG. 3008F BODY MASS INDEX DOCD. * Electronic signature of Prov ider Migration on 06/23/2025 at 12:45 PM EST Sign off status: Pending * Provider: Km to Migration Date: 0 11/04/2024 Generated for Xenia valdez/Fabio/Maude on: 1 08/24/2024 12:45 PM EST
--- OUTSIDE RECORDS SUMMARY | 2024-11-04 03:00 | XMS_ITS ---
Author Organization [facility] are Address [address] [place] [address] Care Team Providers Care Apparel Trimmings Sales Representative Name Role Phone RamonMRS. ирина Sunni Primary [...] 11/04/2024 Encounters Encounter Location Date Provider Diagnosis [facility] [address] [place] [address] 11/04/2024 Sunni Ramon Plan Of Treatment No Information Progress Notes * [place] ARAGONDOB:[birth year] (50 yo F)Acc No.[id number]:11/04/2024 Progress Notes Patient: Geo godinez [place] Meza Provider: CITLALLI Delgado :1975 A ge:49 Y S ex:Female Date:11/04/2024 Address:[address] [place], [place] [phone] Subjective: * Chief Complaints: * F ollow Up Visit Objective: * Vitals: B P: 122/84 mm Hg, HR: 90 /min, Temp: 98.40 F, Oxygen sat %: 97 %, Wt: 239.0000 lbs, Wt-k.41 kg, Ht: 64.00 in, Ht-cm: 162.56 cm, BMI: 41.02 Index. Plan: * Procedure Codes: 3 079F DIAST BP 80-89 MM [id number] SYST BP LT 130 MM [id number] BODY MASS INDEX DOCD Billing Information: * Procedure Codes: 3079F DIAST BP 80-89 MM HG. 3074F SYST BP LT 130 MM HG. 3008F BODY MASS INDEX DOCD. * Electronic signature of GIANNI Porter on 06/23/2025 at 12:47 PM EST Sign off status: Pending * Provider: CITLALLI Delgado Date: 0 11/04/2024 Generated for Xenia valdez/Fabio/Rolandoitting on: 1 08/24/2024 12:47 PM EST
--- OUTSIDE RECORDS SUMMARY | 2025-01-06 03:30 | XMS_ITS ---
Author Organization [facility] Address [address] [place] [address] Care Team Providers Care Makeup Sales Advisor Name Role Phone Benedicto Talley MD Unavailable Unavailable Migration, Provider Unavailable Unavailable REASON FOR VISIT Follow Up Visit Encounters Encounter Location Date Provider Diagnosis [facility] [address] [place] [address] 01/06/2025 Provider Migration Plan Of Treatment No Information Progress Notes * [place] ARAGONDOB:[birth year] (50 yo F)Acc No.[id number]:01/06/2025 Progress Notes Patient: Geo godinezGeorgia Provider: Km Frank :1975 A ge:49 Y S ex:Female Date:01/06/2025 Address:[address] [place] [address] Subjective: * Chief Complaints: * F ollow Up Visit * Electronic signature of Prov ider Migration on 06/23/2025 at 12:48 PM EST Sign off status: Pending * Provider: Km to Migration Date: 0 01/06/2025 Generated for Xenia valdez/Fabio/eTransmitting on: 1 08/24/2024 12:48 PM EST
--- OUTSIDE RECORDS SUMMARY | 2025-01-06 03:30 | XMS_ITS ---
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 Sunni Ramon Primary Care Provider Benedicto Talley MD Unavailable REASON FOR VISIT Follow Up Visit Encounters Encounter Location Date Provider Diagnosis [facility] [address] [place] [address] 01/06/2025 Sunni Ramon Plan Of Treatment No Information Progress Notes * SWANSONGeorgiaDOB:[birth year] (50 yo F)Acc No.[id number]:01/06/2025 Progress Notes Patient: Georgia Hong Provider: CITLALLI Delgado :1975 A ge:49 Y S ex:Female Date:01/06/2025 Address:[address] [place], [place] [phone] Subjective: * Chief Complaints: * F ollow Up Visit * Electronic signature of MRS. Moeller GIANNI Ramon on 06/23/2025 at 12:44 PM EST Sign off status: Pending * Provider: CITLALLI Delgado Date: 0 01/06/2025 Generated for Xenia valdez/Fabio/eTransmitting on: 1 08/24/2024 12:44 PM EST
--- OUTSIDE RECORDS SUMMARY | 2025-02-26 03:00 | XMS_ITS ---
Author Organization [facility] are Address [address] [place] [address] Care Team Providers Care Mobile Application Engineer Name Role Phone MRS. Sunni Ramon Primary Care Provider Benedicto Talley MD Unavailable Unavailable Migration, Provider Unavailable Unavailable REASON FOR VISIT EMR-Héctor Encounters Encounter Location Date Provider Diagnosis [facility] [address] [place] [address] 02/26/2025 Provider Migration Plan Of Treatment Medication Medication Name Sig Start Date Stop Date Notes promethazine 6.25mg/5 mL promethazine 6. 25mg/5 mL, 4 Milliliter every 6 hours as needed for nausea # 360, 07/24/2022, No Refill. Inactive oral every 6 hours as needed for nausea; Duration: 5 07/24/2022 3 *Reorder from [facility] for eRx and Interaction Alerts* Pravastatin 20mg pravastatin 20mg, 1 Tablet daily # 30, 09/12/2023, No Refill. Inactive oral daily; Duration: 30 09/12/2023 4 *Reorder from [facility] for eRx and Interaction Alerts* tamsulosin 0.4mg tamsulosin 0.4mg, 1 (one) Capsule daily # 7, 04/03/2022, No Refill. Inactive oral daily; Duration: 7 04/03/2022 3 *Reorder from [facility] for eRx and Interaction Alerts* Ozempic 0.25 mg or 0.5mg (2 mg/3 Ozempic 0.25 mg or 0.5mg (2 mg/3, 0.5 mg weekly # 3, 12/11/2023, No Refill. Inactive subcutaneous weekly; Duration: 28 12/11/2023 4 *Reorder from [facility] for eRx and Interaction Alerts* Ozempic 1 mg/dose(4 mg/3 mL Ozempic 1 mg/dose(4 mg/3 mL, 1 (one) mL weekly # 4, 05/07/2024, No Refill. Inactive subcutaneous weekly; Duration: 30 05/07/2024 5 *Reorder from [facility] for eRx and Interaction Alerts* cyclobenzaprine 5mg cyclobenzaprine 5mg, 1 (one) Tablet three times daily # 15, 04/03/2022, No Refill. Inactive oral three times daily; Duration: 5 04/03/2022 3 *Reorder from [facility] for eRx and Interaction Alerts* cholecalciferol (vitamin D3) 1,250 mcg(50,000 un cholecalciferol (vitamin D3) 1,250 mcg(50,000 un, 1 Capsule every week # 12, 03/11/2024, No Refill. Inactive oral every week; Duration: 84 03/11/2024 4 *Reorder from [facility] for eRx and Interaction Alerts* Lantus Solostar U-100 Insulin 100 unit/mL(3 mL) Lantus Solostar U-100 Insulin 100 unit/mL(3 mL), 20 units at bedtime # 10, 05/07/2024, Ref. x5. Inactive subcutaneous at bedtime; Duration: 30 05/07/2024 5 *Reorder from [facility] for eRx and Interaction Alerts* HumaLOG KwikPen Insulin 100unit/mL HumaLOG KwikPen Insulin 100unit/mL, 5 units subcutaneous three times a day with breakfast, lunch, and dinner # 5, 03/10/2024, Ref. x5. Inactive subcutaneous subcutaneous three times a day with breakfast, lunch, and dinner; Duration: 30 03/10/2024 4 *Reorder from [facility] for eRx and Interaction Alerts* Ozempic 2 mg/dose(8 mg/3 mL Ozempic 2 mg/dose(8 mg/3 mL, 2 (two) milligram SQ once weekly # 9, 03/14/2023, No Refill. Inactive subcutaneous SQ once weekly; Duration: 03/14/2023 3 *Reorder from [facility] for eRx and Interaction Alerts* FreeStyle Philip 2 [place] - Device FreeStyle Philip 2 [place] , 1 (one) Device as directed # [...] 2 sensors per 28 days Dexcom G5 Pre Sales Technical Engineer Kit Dexcom G5 Receive r Kit , 1 (one) Device as directed # 1, 11/10/2020, Ref. x11. Inactive as directed; Duration: 14 11/10/2020 1 DX: UNCONTROLLED INSULLIN DEPENDENT DIABETES Guardian Sensor (3) Guardian Sensor (3) , as directed # 90, 11/08/2020, Ref. x3. Inactive as directed; Duration: 11/08/2020 1 1YR SUPPLY Soliqua 100-33 UNT-MCG/ML Solution Pen-injector Soliqua [id number]/ML, 10 units at bedtime daily for type [...] once weekly; Duration: 30 08/30/2020 *Reorder from [facility] for eRx and Interaction Alerts* Lyndsey Allergy 180MG Lyndsey Allergy 18 0MG, 1 (one) Tablet daily # 30, 10/28/2018, Ref. x6. Inactive Oral daily; Duration: 30 10/28/2018 9 *Pick strength-form from [employer] for eRX* metFORMIN HCl ER 500 MG [...] daily; Duration: 0 12/08/2020 *Pick strength-form from [facility] for eRX* Dulera 100-5 MCG/ACT Aerosol Dulera 100-5mcg/actuat, 2 puffs 2 times per day # 13, 12/23/2023, Ref. x5. Inactive Inhalation 2 times per day; Duration: 30 12/23/2023 4 B-6 100MG B-6( 100MG Oral 1 da geoff ) Inactive -Hx Entry Oral daily; Duration: 0 12/24/2020 *Pick strength-form from [facility] for eRX* ZyrTEC-D Allergy & Congestion 5-120MG ZyrTEC-D Allergy & Congestion 5-120MG, 1 (one) Tablet daily # 20, 08/11/2018, No Refill. Inactive Oral daily; Duration: 20 08/11/2018 9 *Pick strength-form from [facility] for eRX* Zoloft 50MG Zoloft 50MG, 1 (one) Tablet daily # 90, 07/10/2019, Ref. x3. Inactive Oral daily; Duration: 90 07/10/2019 0 *Pick strength-form from [facility] for eRX* Ventolin HFA 108 (90 Base) [...] Oral daily; Duration: 0 07/06/2019 *Reorder from [facility] for eRx and Interaction Alerts* Voltaren 1% Voltaren 1%, 2 (two) gram Apply to the affected joint(s) twice daily as needed for pain # 100, 08/11/2020, No Refill. Inactive External Apply to the affected joint(s) twice daily as needed for pain; Duration: 10 08/11/2020 1 *Pick strength-form from [facility] for eRX* Sucralfate 1 GM/10ML Suspension Sucralfate [...] wheezing; Duration: 30 11/21/2020 1 *Reorder from [facility] for eRx and Interaction Alerts* Phenazopyridine HCl 200MG Phenazopyridin e HCl 200MG, 1 (one) Tablet three times daily as needed for urinary symptoms # 21, 01/04/2019, Ref. x2. Inactive Oral three times daily as needed for urinary symptoms; Duration: 7 01/04/2019 9 *Pick strength-form from [facility] for eRX* Phentermine HCl 37.5 MG Capsule [...] Duration: 30 06/13/2021 2 *Pick strength-form from [facility] for eRX* medroxyPROGESTERone Acetate 10 MG Tablet [...] daily; Duration: 0 07/05/2019 *Pick strength-form from [facility] for eRX* Lisinopril 10 MG Tablet lisinopriL [...] eating; Duration: 3 07/02/2018 9 *Reorder from [facility] for eRx and Interaction Alerts* Furosemide 20 MG Tablet furosemide 20mg, 1 (one) Tablet once daily # 30, 06/07/2022, Ref. x5. Inactive Oral once daily; Duration: 30 06/07/2022 4 Folic Acid 400MCG Folic Acid( 400MCG O ral 1 tablet daily ) Inactive -Hx Entry Oral daily; Duration: 0 12/08/2020 *Pick strength-form from [facility] for eRX* Gabapentin 300mg gabapentin( 300mg or al 1 three times daily ) Inactive -Hx Entry oral three times daily; Duration: 0 10/02/2024 5 *Pick strength-form from [facility] for eRX* glipiZIDE 5 MG Tablet GlipiZIDE [...] Duration: 10 07/15/2017 8 *Pick strength-form from [facility] for eRX* Doxycycline Hyclate 100 MG [...] Duration: 7 06/21/2021 2 *Pick strength-form from [facility] for eRX* Bromfed DM 2-30-10 MG/5ML Syrup [...] Oral three times daily; Duration: 30 05/21/2019 Wocnfvsdsi-PSQS-Vauxdmgy 50-325-40 MG Capsule Cxxvkxgixd-RZTD-Hnroevkt 50-325-40MG, 1 (one) Capsule every 4-6 hours [...] dizziness; Duration: 0 09/06/2024 5 *Reorder from [facility] for eRx and Interaction Alerts* Bactrim DS 800-160MG Bactrim DS 800-160M G, 1 (one) Tablet two times daily # 10, 05/14/2021, No Refill. Inactive Oral two times daily; Duration: 5 05/14/2021 *Pick strength-form from [employer] for eRX* Progress Notes * Georgia SWANSONDOB:[birth year] (50 yo F)Acc No.[id number]:02/26/2025 Patient: [place] CHRISTIE Susana :1975 A ge:49 Y S ex:Female Address:[address] [place] [address], [address] * Refills Stop Meclizine, 12.5mg, oral, 30, [...] needed for congestion and cough, 10 Stop Tuhlxejvkd-FQHE-Dpqprfbx Capsule, 50-325-40 MG, Oral, 15, Cqzjtzdnim-KZUA-Ygmetady 50-325-40MG, 1 (one) Capsule every 4-6 hours [...] Solution Pen-injector, 100-33 UNT-MCG/ML, Subcutaneous, 1, Soliqua [id number], 10 units at bedtime daily for type [...] Inactive, as directed, 90 Stop Dexcom G5 Pre Sales Technical Engineer Kit, 1, Dexcom G5 Pre Sales Technical Engineer Kit , 1 (one) Device as directed # 1, 11/10/2020, Ref. x11. Inactive, as directed, 14 Stop FreeStyle Philip 2 [place] Device, - , 1, FreeStyle Philip 2 [place] , 1 (one) Device as directed # [...]
--- OUTSIDE RECORDS SUMMARY | 2025-02-27 03:00 | XMS_ITS ---
Author Organization [employer] are Address [address] [place] [address] Care Team Providers Care Private Duty Nurse Name Role Phone MRS. Sunni Ramon Primary [...] every 12 weeks; Duration: 0 *Reorder from [facility] for eRx and Interaction Alerts* 11/04/2024 Active FreeStyle Philip 3 Sensor - Miscellaneous FreeStyle Philip 3 Sensor( miscellaneous every 14 days ) Active -Hx Entry miscellaneous every 14 days; Duration: 0 11/04/2024 Active Folic Acid Xtra Folic Acid Xtra( Ora l 1 (one) daily ) Active -Hx Entry Oral daily; Duration: 30 *Reorder from [facility] for eRx and Interaction Alerts* 04/27/2021 Active [...] other day; Duration: 30 *Pick strength-form from [facility] for eRX* 11/09/2019 Active PROzac 20 MG [...] prn wheezing; Duration: 30 *[facility]* 01/22/2024 Active ALPRAZolam 0.5 MG Tablet ALPRAZolam 0.5mg, 1 (one) tablet two times daily, as needed FOR PANIC ATTACHS # 20, 10/12/2024, No Refill. Active Oral two times daily, as needed FOR PANIC ATTACHS; Duration: 10 DX: PANIC ATTACkS [place] Controlled Substance Reporting Database reviewed and patient found to be in compliance with prescription. 10/12/2024 Active Nurtec ODT 75mg Nurtec ODT 75mg, 1 (one) Tablet daily at onset of migraine headache # 8, 01/09/2024, Ref. x2. Active oral daily at onset of migraine headache; Duration: 30 *Reorder from [facility] for eRx and Interaction Alerts* 01/09/2024 Active cyclobenzaprine 5mg cyclobenzaprine 5mg, 1 tablet Tablet at bedtime as needed for neck tension # 90, 11/04/2024, Ref. x1. Active oral at bedtime as needed for neck tension; Duration: 90 *Reorder from [facility] for eRx and Interaction Alerts* 11/04/2024 Active Ozempic 2 mg/dose(8 mg/3 mL Ozempic( 2 mg/dose(8 mg/3 mL subcutaneous 2 mg one weekly ) Active -Hx Entry subcutaneous one weekly; Duration: 0 *[facility]* 11/04/2024 Active cholecalciferol (vitamin D3) 50 mcg(2,000 uni cholecalciferol (vitamin D3) 50 mcg(2,000 uni, 1 (one) Tablet daily # 30, 11/20/2022, No Refill. Active oral daily; Duration: 30 *[facility]* 11/20/2022 Active atorvastatin 40mg atorvastatin 40mg, 1 (one) Tablet at bedtime for high cholesterol # 90, 09/13/2024, Ref. x1. Active oral at bedtime for high cholesterol; Duration: 90 *[facility]* 09/13/2024 Active [...] Encounter Location Date Provider Diagnosis [facility] [address] [place] [address] 02/27/2025 Provider Migration Plan Of Treatment No Information Progress Notes * [place] ARAGONDOB:[birth year] (50 yo F)Acc No.[id number]:02/27/2025 Patient: [place] CHRISTIE :1975 A ge:49 Y S ex:Female Address:[address] [place] [id number] Subjective: * Chief Complaints: * E MR-Héctor [...] , Notes to Pharmacist: *Pick strength-form from [facility] for eRX*ALPRAZolam 0.5 MG Tablet ALPRAZolam 0.5mg, 1 (one) tablet two times daily, as needed FOR PANIC ATTACHS # 20, 10/12/2024, No Refill. Active Oral two times daily, as needed FOR PANIC ATTACHS , Notes to Pharmacist: DX: PANIC ATTACkS [place] Controlled Substance Reporting Database reviewed and patient found to be in compliance with prescription.Ferrous Sulfate 325 (65 Fe)MG Ferrous Sulfate 325 (65 Fe)MG, 1 tablet Tablet daily or every other day # 30, 11/09/2019, Ref. x2. Active Oral daily or every other day , Notes to Pharmacist: *Pick strength-form from [facility] for eRX*Ondansetron 4 MG Tablet Disintegrating ondansetron [...] daily , Notes to Pharmacist: *Reorder from [facility] for eRx and Interaction Alerts*Farxiga 10 MG [...] weeks , Notes to Pharmacist: *Reorder from [facility] for eRx and Interaction Alerts*atorvastatin 40mg atorvastatin 40mg, 1 (one) Tablet at bedtime for high cholesterol # 90, 09/13/2024, Ref. x1. Active oral at bedtime for high cholesterol , Notes to Pharmacist: *Reorder from [facility] for eRx and Interaction Alerts*cholecalciferol (vitamin D3) 50 mcg(2,000 uni cholecalciferol (vitamin D3) 50 mcg(2,000 uni, 1 (one) Tablet daily # 30, 11/20/2022, No Refill. Active oral daily , Notes to Pharmacist: *Reorder from [facility] for eRx and Interaction Alerts*cyclobenzaprine 5mg cyclobenzaprine 5mg, 1 tablet Tablet at bedtime as needed for neck tension # 90, 11/04/2024, Ref. x1. Active oral at bedtime as needed for neck tension , Notes to Pharmacist: *Reorder from [facility] for eRx and Interaction Alerts*Nurtec ODT 75mg Nurtec ODT 75mg, 1 (one) Tablet daily at onset of migraine headache # 8, 01/09/2024, Ref. x2. Active oral daily at onset of migraine headache , Notes to Pharmacist: *Reorder from [facility] for eRx and Interaction Alerts*Ozempic 2 mg/dose(8 mg/3 mL Ozempic( 2 mg/dose(8 mg/3 mL subcutaneous 2 mg one weekly ) Active -Hx Entry subcutaneous one weekly , Notes to Pharmacist: *Reorder from [facility] for eRx and Interaction Alerts*Taking Albuterol Sulfate 90mcg/actuat albuterol sulfate 90mcg/actuat, 2 Puff q 4 hours prn wheezing # 1, 01/22/2024, Ref. x2. Active inhalation q 4 hours prn wheezing , Notes to Pharmacist: *Pick strength-form from [facility] for eRX*Taking ALPRAZolam 0.5 MG Tablet ALPRAZolam 0.5mg, 1 (one) tablet two times daily, as needed FOR PANIC ATTACHS # 20, 10/12/2024, No Refill. Active Oral two times daily, as needed FOR PANIC ATTACHS , Notes to Pharmacist: DX: PANIC ATTACkS [place] Controlled Substance Reporting Database reviewed and patient found to be in compliance with prescription.Taking Ferrous Sulfate 325 (65 Fe)MG Ferrous Sulfate 325 (65 Fe)MG, 1 tablet Tablet daily or every other day # 30, 11/09/2019, Ref. x2. Active Oral daily or every other day , Notes to Pharmacist: *Pick strength-form from [facility] for eRX*Taking Ondansetron 4 MG Tablet Disintegrating [...] daily , Notes to Pharmacist: *Reorder from [facility] for eRx and Interaction Alerts*Taking Farxiga 10 [...] weeks , Notes to Pharmacist: *Reorder from [facility] for eRx and Interaction Alerts*Taking atorvastatin 40mg atorvastatin 40mg, 1 (one) Tablet at bedtime for high cholesterol # 90, 09/13/2024, Ref. x1. Active oral at bedtime for high cholesterol , Notes to Pharmacist: *Reorder from [facility] for eRx and Interaction Alerts*Taking cholecalciferol (vitamin D3) 50 mcg(2,000 uni cholecalciferol (vitamin D3) 50 mcg(2,000 uni, 1 (one) Tablet daily # 30, 11/20/2022, No Refill. Active oral daily , Notes to Pharmacist: *Reorder from [facility] for eRx and Interaction Alerts*Taking cyclobenzaprine 5mg cyclobenzaprine 5mg, 1 tablet Tablet at bedtime as needed for neck tension # 90, 11/04/2024, Ref. x1. Active oral at bedtime as needed for neck tension , Notes to Pharmacist: *Reorder from [facility] for eRx and Interaction Alerts*Taking Nurtec ODT 75mg Nurtec ODT 75mg, 1 (one) Tablet daily at onset of migraine headache # 8, 01/09/2024, Ref. x2. Active oral daily at onset of migraine headache , Notes to Pharmacist: *Reorder from [facility] for eRx and Interaction Alerts*Taking Ozempic 2 mg/dose(8 mg/3 mL Ozempic( 2 mg/dose(8 mg/3 mL subcutaneous 2 mg one weekly ) Active -Hx Entry subcutaneous one weekly , Notes to Pharmacist: *Reorder from [facility] for eRx and Interaction Alerts* * Allergies: A llergies Reconciled: AllergyAzithromycin *CHEMICALS*: AllergyBanana (Diagnostic): AllergyBlueberry Flavor *PHARMACEUTICAL ADJUVANTS*: AllergyErythromycin: AllergyIodine *ANTISEPTICS & DISINFECTANTS*: AllergyLactase *DIETARY PRODUCTS/DIETARY MANAGEMENT PRODU: AllergyMontelukast Sodium *ANTIASTHMATIC AND BRONCHODILAT: AllergyPenicillins: AllergyRaspberry Flavor *PHARMACEUTICAL ADJUVANTS*: AllergyShellfish-derived Products: Allergy * * Date:
--- OUTSIDE RECORDS SUMMARY | 2025-03-05 03:00 | XMS_ITS ---
Author Organization [facility] [place] Address [address] [place] [address] Care Team Providers Care Surtass Analyst Name Role Phone Benedicto Talley MD Unavailable Unavailable Migration, Provider Unavailable Unavailable REASON FOR VISIT EMR-Héctor Encounters Encounter Location Date Provider Diagnosis [facility] [address] [place] [address] 03/05/2025 Provider Migration Plan Of Treatment Medication [...] cough; Duration: 10 07/17/2020 1 *Reorder from [facility] for eRx and Interaction Alerts* Carafate 1 GM Tablet Carafate( 1GM Oral 1 (one) Tablet three times daily ) Inactive -Hx Entry Oral three times daily; Duration: 30 05/21/2019 Eesjwnzahm-DDDS-Ftfkbgas 50-325-40 MG Capsule Wdbeinhzxz-NOKU-Myflopfq 50-325-40MG, 1 (one) Capsule every 4-6 hours [...] Duration: 7 06/21/2021 2 *Pick strength-form from [facility] for eRX* promethazine 6.25mg/5 mL promethazine 6. 25mg/5 mL, 4 Milliliter every 6 hours as needed for nausea # 360, 07/24/2022, No Refill. Inactive oral every 6 hours as needed for nausea; Duration: 5 07/24/2022 3 *Reorder from [facility] for eRx and Interaction Alerts* tamsulosin 0.4mg tamsulosin 0.4mg, 1 (one) Capsule daily # 7, 04/03/2022, No Refill. Inactive oral daily; Duration: 7 04/03/2022 3 *Reorder from [facility] for eRx and Interaction Alerts* Acetaminophen-Codeine 300-30 [...] dizziness; Duration: 0 09/06/2024 5 *[facility]* Bactrim DS 800-160MG Bactrim DS 800-160M G, 1 (one) Tablet two times daily # 10, 05/14/2021, No Refill. Inactive Oral two times daily; Duration: 5 05/14/2021 *Pick strength-form from [facility] for eRX* Ozempic 2 mg/dose(8 mg/3 mL Ozempic 2 mg/dose(8 mg/3 mL, 2 (two) milligram SQ once weekly # 9, 03/14/2023, No Refill. Inactive subcutaneous SQ once weekly; Duration: 90 03/14/2023 3 *Reorder from [facility] for eRx and Interaction Alerts* Lantus Solostar U-100 Insulin 100 unit/mL(3 mL) Lantus Solostar U-100 Insulin 100 unit/mL(3 mL), 20 units at bedtime # 10, 05/07/2024, Ref. x5. Inactive subcutaneous at bedtime; Duration: 30 05/07/2024 5 *Reorder from [facility] for eRx and Interaction Alerts* Ozempic 1 mg/dose(4 mg/3 mL Ozempic 1 mg/dose(4 mg/3 mL, 1 (one) mL weekly # 4, 05/07/2024, No Refill. Inactive subcutaneous weekly; Duration: 30 05/07/2024 5 *Reorder from [facility] for eRx and Interaction Alerts* Ozempic 0.25 mg or 0.5mg (2 mg/3 Ozempic 0.25 mg or 0.5mg (2 mg/3, 0.5 mg weekly # 3, 12/11/2023, No Refill. Inactive subcutaneous weekly; Duration: 28 12/11/2023 4 *Reorder from [facility] for eRx and Interaction Alerts* pravastatin 20mg pravastatin 20mg, 1 Tablet daily # 30, 09/12/2023, No Refill. Inactive oral daily; Duration: 30 09/12/2023 4 *Reorder from [facility] for eRx and Interaction Alerts* HumaLOG KwikPen Insulin 100unit/mL HumaLOG KwikPen Insulin 100unit/mL, 5 units subcutaneous three times a day with breakfast, lunch, and dinner # 5, 03/10/2024, Ref. x5. Inactive subcutaneous subcutaneous three times a day with breakfast, lunch, and dinner; Duration: 30 03/10/2024 4 *Reorder from [facility] for eRx and Interaction Alerts* cyclobenzaprine 5mg cyclobenzaprine 5mg, 1 (one) Tablet three times daily # 15, 04/03/2022, No Refill. Inactive oral three times daily; Duration: 5 04/03/2022 3 *Reorder from [facility] for eRx and Interaction Alerts* FreeStyle Philip [...] week; Duration: 84 03/11/2024 4 *Reorder from [facility] for eRx and Interaction Alerts* Ozempic (2 [...] 04/11/2021 1 Src Refills: 100 Dexcom G5 Medical Lab Director Kit Dexcom G5 Receive r Kit , 1 (one) Device as directed # 1, 11/10/2020, Ref. x11. Inactive as directed; Duration: 14 11/10/2020 1 DX: UNCONTROLLED INSULLIN DEPENDENT DIABETES FreeStyle Philip 2 [place] - Device FreeStyle Philip 2 [place] , 1 (one) Device as directed # [...] instead Soliqua 100-33 UNT-MCG/ML Solution Pen-injector Soliqua [id number]/[id number], 10 units at bedtime daily for type [...] once weekly; Duration: 30 08/30/2020 *Reorder from [facility] for eRx and Interaction Alerts* Breo Ellipta [...] Duration: 30 10/28/2018 9 *Pick strength-form from [facility] for eRX* BD Pen Needle Hazel U/F [...] daily; Duration: 0 12/24/2020 *Pick strength-form from [facility] for eRX* Voltaren 1% Voltaren 1%, 2 (two) gram Apply to the affected joint(s) twice daily as needed for pain # 100, 08/11/2020, No Refill. Inactive External Apply to the affected joint(s) twice daily as needed for pain; Duration: 10 08/11/2020 1 *Pick strength-form from [facility] for eRX* Zoloft 50MG Zoloft 50MG, 1 (one) Tablet daily # 90, 07/10/2019, Ref. x3. Inactive Oral daily; Duration: 90 07/10/2019 0 *Pick strength-form from [facility] for eRX* Zofran 4MG Zofran( 4MG Oral 1 d aily ) Inactive -Hx Entry Oral daily; Duration: 0 07/06/2019 *Reorder from [facility] for eRx and Interaction Alerts* ZyrTEC-D Allergy & Congestion 5-120MG ZyrTEC-D Allergy & Congestion 5-120MG, 1 (one) Tablet daily # 20, 08/11/2018, No Refill. Inactive Oral daily; Duration: 20 08/11/2018 9 *Pick strength-form from [facility] for eRX* Vitamin B 12 500MCG Vitamin B 12( 500MCG Oral 1 tablet daily ) Inactive -Hx Entry Oral daily; Duration: 0 12/08/2020 *Pick strength-form from [facility] for eRX* traMADol HCl 50 MG Tablet [...] wheezing; Duration: 30 11/21/2020 1 *Reorder from [facility] for eRx and Interaction Alerts* Phentermine HCl [...] Duration: 7 01/04/2019 9 *Pick strength-form from [facility] for eRX* Phentermine HCl 37.5 MG Capsule [...] eating; Duration: 3 07/02/2018 9 *Reorder from [facility] for eRx and Interaction Alerts* Fluconazole 150 [...] stones; Duration: 30 02/10/2020 0 *Reorder from [facility] for eRx and Interaction Alerts* Furosemide 20mg furosemide 20mg, 1 ( one) Tablet once daily # 30, 06/07/2022, Ref. x5. Inactive oral once daily; Duration: 30 06/07/2022 4 *Pick strength-form from [facility] for eRX* Folic Acid 400MCG Folic Acid( 400MCG O ral 1 tablet daily ) Inactive -Hx Entry Oral daily; Duration: 0 12/08/2020 *Pick strength-form from [facility] for eRX* Gabapentin 300mg gabapentin( 300mg or [...] Duration: 7 11/21/2020 1 *Pick strength-form from [facility] for eRX* Progress Notes * [place] ARAGON SusanaDOB:[birth year] (50 yo F)Acc No.[id number]:03/05/2025 Patient: [place] CHRISTIE :1975 A ge:49 Y S ex:Female Address:[address] [place] [address] * Refills Stop Meclizine, 12.5mg, oral, 30, [...] needed for congestion and cough, 10 Stop Oyvzoupigo-BZPQ-Nmdkcebu Capsule, 50-325-40 MG, Oral, 15, Ykdrkyixov-GIAP-Taocurky 50-325-40MG, 1 (one) Capsule every 4-6 hours [...] Solution Pen-injector, 100-33 UNT-MCG/ML, Subcutaneous, 1, Soliqua [id number]-LHO/ML, 10 units at bedtime daily for type [...] Inactive, as directed, 90 Stop Dexcom G5 Medical Lab Director Kit, 1, Dexcom G5 Medical Lab Director Kit , 1 (one) Device as directed # 1, 11/10/2020, Ref. x11. Inactive, as directed, 14 Stop FreeStyle Philip 2 [place] Device, - , 1, FreeStyle Philip 2 [place] , 1 (one) Device as directed # [...]
--- OUTSIDE RECORDS SUMMARY | 2025-03-06 03:00 | XMS_ITS ---
Author Organization [facility] [place] Address [address] [place] [address] Care Team Providers Care Park Superintendent Name Role Phone Benedicto Talley MD Unavailable [...] Entry Oral daily; Duration: 30 *Reorder from [employer] for eRx and Interaction Alerts* 04/27/2021 Active ALPRAZolam 0.5 MG Tablet ALPRAZolam 0.5mg, 1 (one) tablet two times daily, as needed FOR PANIC ATTACHS # 20, 10/12/2024, No Refill. Active Oral two times daily, as needed FOR PANIC ATTACHS; Duration: 10 DX: PANIC ATTACkS [place] Controlled Substance Reporting Database reviewed and patient found to be in compliance with prescription. 10/12/2024 Active Albuterol Sulfate 90mcg/actuat albuterol sulfate 90mcg/actuat, 2 Puff q 4 hours prn wheezing # 1, 01/22/2024, Ref. x2. Active inhalation q 4 hours prn wheezing; Duration: 30 *Pick strength-form from [email or web address] for eRX* 01/22/2024 Active Ondansetron 4 MG [...] other day; Duration: 30 *Pick strength-form from [email or web address] for eRX* 11/09/2019 Active Ozempic 2 mg/dose(8 mg/3 mL Ozempic( 2 mg/dose(8 mg/3 mL subcutaneous 2 mg one weekly ) Active -Hx Entry subcutaneous one weekly; Duration: 0 *Reorder from [facility] for eRx and Interaction Alerts* 11/04/2024 Active atorvastatin 40mg atorvastatin 40mg, 1 (one) Tablet at bedtime for high cholesterol # 90, 09/13/2024, Ref. x1. Active oral at bedtime for high cholesterol; Duration: 90 *Reorder from [facility] for eRx and Interaction Alerts* 09/13/2024 Active Ajovy Autoinjector 225mg/1.5 mL Ajovy Autoinjector( 225mg/1.5 mL subcutaneous 1 every 12 weeks ) Active -Hx Entry subcutaneous every 12 weeks; Duration: 0 *Reorder from [facility] for eRx and Interaction Alerts* 11/04/2024 Active cyclobenzaprine 5mg cyclobenzaprine 5mg, 1 tablet Tablet at bedtime as needed for neck tension # 90, 11/04/2024, Ref. x1. Active oral at bedtime as needed for neck tension; Duration: 90 *Reorder from [facility] for eRx and Interaction Alerts* 11/04/2024 Active cholecalciferol (vitamin D3) 50 mcg(2,000 uni cholecalciferol (vitamin D3) 50 mcg(2,000 uni, 1 (one) Tablet daily # 30, 11/20/2022, No Refill. Active oral daily; Duration: 30 *Reorder from [facility] for eRx and Interaction Alerts* 11/20/2022 Active Nurtec ODT 75mg Nurtec ODT 75mg, 1 (one) Tablet daily at onset of migraine headache # 8, 01/09/2024, Ref. x2. Active oral daily at onset of migraine headache; Duration: 30 *Reorder from [facility] for eRx and Interaction Alerts* [...] [facility] [address] [place] [address] 03/06/2025 Provider Migration Plan Of Treatment No Information Progress Notes * Georgia SWANSON JDOB:[birth year] (50 yo F)Acc No.[id number]:03/06/2025 Patient: Georgia CHRISTIE :1975 A ge:49 Y S ex:Female Address:[address] [place] [id number] Subjective: * Chief Complaints: * E MR-Héctor [...] , Notes to Pharmacist: *Pick strength-form from [email or web address] for eRX*ALPRAZolam 0.5 MG Tablet ALPRAZolam 0.5mg, 1 (one) tablet two times daily, as needed FOR PANIC ATTACHS # 20, 10/12/2024, No Refill. Active Oral two times daily, as needed FOR PANIC ATTACHS , Notes to Pharmacist: DX: PANIC ATTACkS [place] Controlled Substance Reporting Database reviewed and patient found to be in compliance with prescription.Ferrous Sulfate 325 (65 Fe)MG Ferrous Sulfate 325 (65 Fe)MG, 1 tablet Tablet daily or every other day # 30, 11/09/2019, Ref. x2. Active Oral daily or every other day , Notes to Pharmacist: *Pick strength-form from [email or web address] for eRX*Ondansetron 4 MG Tablet Disintegrating ondansetron [...] daily , Notes to Pharmacist: *Reorder from [email or web address] for eRx and Interaction Alerts*Farxiga 10 MG [...] weeks , Notes to Pharmacist: *Reorder from [email or web address] for eRx and Interaction Alerts*atorvastatin 40mg atorvastatin 40mg, 1 (one) Tablet at bedtime for high cholesterol # 90, 09/13/2024, Ref. x1. Active oral at bedtime for high cholesterol , Notes to Pharmacist: *Reorder from [facility] for eRx and Interaction Alerts*cholecalciferol (vitamin D3) 50 mcg(2,000 uni cholecalciferol (vitamin D3) 50 mcg(2,000 uni, 1 (one) Tablet daily # 30, 11/20/2022, No Refill. Active oral daily , Notes to Pharmacist: *Reorder from [facility] for eRx and Interaction Alerts*cyclobenzaprine 5mg cyclobenzaprine 5mg, 1 tablet Tablet at bedtime as needed for neck tension # 90, 11/04/2024, Ref. x1. Active oral at bedtime as needed for neck tension , Notes to Pharmacist: *Reorder from [facility] for eRx and Interaction Alerts*Nurtec ODT 75mg Nurtec ODT 75mg, 1 (one) Tablet daily at onset of migraine headache # 8, 01/09/2024, Ref. x2. Active oral daily at onset of migraine headache , Notes to Pharmacist: *Reorder from [facility] for eRx and Interaction Alerts*Ozempic 2 mg/dose(8 mg/3 mL Ozempic( 2 mg/dose(8 mg/3 mL subcutaneous 2 mg one weekly ) Active -Hx Entry subcutaneous one weekly , Notes to Pharmacist: *Reorder from [facility] for eRx and Interaction Alerts*Taking Albuterol Sulfate 90mcg/actuat albuterol sulfate 90mcg/actuat, 2 Puff q 4 hours prn wheezing # 1, 01/22/2024, Ref. x2. Active inhalation q 4 hours prn wheezing , Notes to Pharmacist: *Pick strength-form from [facility] for eRX*Taking ALPRAZolam 0.5 MG Tablet ALPRAZolam 0.5mg, 1 (one) tablet two times daily, as needed FOR PANIC ATTACHS # 20, 10/12/2024, No Refill. Active Oral two times daily, as needed FOR PANIC ATTACHS , Notes to Pharmacist: DX: PANIC ATTACkS [place] Controlled Substance Reporting Database reviewed and patient found to be in compliance with prescription.Taking Ferrous Sulfate 325 (65 Fe)MG Ferrous Sulfate 325 (65 Fe)MG, 1 tablet Tablet daily or every other day # 30, 11/09/2019, Ref. x2. Active Oral daily or every other day , Notes to Pharmacist: *Pick strength-form from [facility] for eRX*Taking Ondansetron 4 MG [...] daily , Notes to Pharmacist: *Reorder from [facility] for eRx and Interaction Alerts*Taking [...] weeks , Notes to Pharmacist: *Reorder from [facility] for eRx and Interaction Alerts*Taking atorvastatin 40mg atorvastatin 40mg, 1 (one) Tablet at bedtime for high cholesterol # 90, 09/13/2024, Ref. x1. Active oral at bedtime for high cholesterol , Notes to Pharmacist: *Reorder from [facility] for eRx and Interaction Alerts*Taking cholecalciferol (vitamin D3) 50 mcg(2,000 uni cholecalciferol (vitamin D3) 50 mcg(2,000 uni, 1 (one) Tablet daily # 30, 11/20/2022, No Refill. Active oral daily , Notes to Pharmacist: *Reorder from [facility] for eRx and Interaction Alerts*Taking cyclobenzaprine 5mg cyclobenzaprine 5mg, 1 tablet Tablet at bedtime as needed for neck tension # 90, 11/04/2024, Ref. x1. Active oral at bedtime as needed for neck tension , Notes to Pharmacist: *Reorder from [facility] for eRx and Interaction Alerts*Taking Nurtec ODT 75mg Nurtec ODT 75mg, 1 (one) Tablet daily at onset of migraine headache # 8, 01/09/2024, Ref. x2. Active oral daily at onset of migraine headache , Notes to Pharmacist: *Reorder from [facility] for eRx and Interaction Alerts*Taking Ozempic 2 mg/dose(8 mg/3 mL Ozempic( 2 mg/dose(8 mg/3 mL subcutaneous 2 mg one weekly ) Active -Hx Entry subcutaneous one weekly , Notes to Pharmacist: *Reorder from [facility] for eRx and Interaction Alerts* * Allergies: A llergies Reconciled: AllergyAzithromycin *CHEMICALS*: AllergyBanana (Diagnostic) *DIAGNOSTIC PRODUCTS*: AllergyBlueberry Flavor *PHARMACEUTICAL ADJUVANTS*: AllergyErythromycins: AllergyIodine *ANTISEPTICS & DISINFECTANTS*: AllergyLactase *DIETARY PRODUCTS/DIETARY MANAGEMENT PRODU: AllergyMontelukast Sodium *ANTIASTHMATIC AND BRONCHODILAT: AllergyPenicillins: AllergyRaspberry Flavor *PHARMACEUTICAL ADJUVANTS*: AllergyShellfish: Allergy * * Date:
--- OUTSIDE RECORDS SUMMARY | 2025-05-14 03:00 | XMS_ITS ---
Author Organization [facility] are Address [address] [place] [address] Care Team Providers Care Tile Grader Name Role Phone MRS. Sunni Ramon Primary Care Provider [phone] Benedicto Talley MD Unavailable Unavailable Migration, Provider Unavailable Unavailable REASON FOR VISIT [facility] Encounters Encounter Location Date Provider Diagnosis [facility] [address] [place] [address] 05/14/2025 Provider Migration Plan Of Treatment Medication Medication Name Sig Start Date Stop Date Notes metroNIDAZOLE 500 MG Tablet MetroNIDAZOLE 500MG, 1 (one) Tablet three times daily # 30, 03/23/2018, No Refill. Inactive Oral three times daily; Duration: 10 03/23/2018 8 LORazepam 0.5 MG Tablet LORazepam 0.5MG, 1 (one) Tablet Tablet po at onset of seizure # 30, 10/25/2019, No Refill. Inactive Oral po at onset of seizure; Duration: 30 10/25/2019 0 Lyrica 50 MG Capsule Lyrica 50MG, 1 (one ) Capsule two times daily # 60, 06/13/2021, No Refill. Inactive Oral two times daily; Duration: 30 06/13/2021 2 Maxalt 10 MG Tablet Maxalt 10MG, 1 table t daily, 09/27/2018, No Refill. Inactive Oral daily; Duration: 0 09/27/2018 9 medroxyPROGESTERone Acetate 10 MG Tablet medroxyPROGESTERone Acetate 10MG, 2 (two) Tablet three times daily for abnormal bleeding # 42, 10/02/2021, No Refill. Inactive Oral three times daily for abnormal bleeding; Duration: 7 10/02/2021 2 HumaLOG KwikPen 100 UNIT/ML Solution Pen-injector HumaLOG KwikPen 100UNIT/ML, 5 units 2-3 times a day with meals # 1, 11/06/2020, Ref. x5. Inactive Subcutaneous 2-3 times a day with meals; Duration: 30 11/06/2020 1 Lasix 20 MG Tablet Lasix 20MG, 1 (one) Tablet take 1 daily # 90, 06/07/2022, No Refill. Inactive Oral take 1 daily; Duration: 30 06/07/2022 3 Lidocaine Viscous 2% Lidocaine Viscous 2 %, 10 Milliliter gargle and swallow every 3 hours as needed before eating # 240, 07/02/2018, No Refill. Inactive Mouth/Throat gargle and swallow every 3 hours as needed before eating; Duration: 3 07/02/2018 9 *Reorder from [facility] for eRx and Interaction Alerts* Lisinopril 5 MG Tablet Lisinopril 5MG, 1 tablet daily, 09/13/2018, No Refill. Inactive Oral daily; Duration: 0 09/13/2018 9 Lisinopril 10 MG Tablet lisinopriL 10mg, 1 Tablet daily # 90, 09/22/2024, Ref. x1. Inactive Oral daily; Duration: 90 09/22/2024 5 glipiZIDE 5 MG Tablet GlipiZIDE 5MG, 1 t ablet two times daily, 09/13/2018, No Refill. Inactive Oral two times daily; Duration: 0 09/13/2018 9 Fluconazole 150 MG Tablet Fluconazole 15 0MG, 1 (one) Tablet one time dose, repeat in 72 hours as needed for yeast infection # 3, 03/19/2021, Ref. x1. Inactive Oral one time dose, repeat in 72 hours as needed for yeast infection; Duration: 9 03/19/2021 1 Folic Acid 400MCG Folic Acid( 400MCG O ral 1 tablet daily ) Inactive -Hx Entry Oral daily; Duration: 0 12/08/2020 *Pick strength-form from [facility] for eRX* Furosemide 20mg furosemide 20mg, 1 ( one) Tablet once daily # 30, 06/07/2022, Ref. x5. Inactive oral once daily; Duration: 30 06/07/2022 4 *Pick strength-form from [facility] for eRX* Gabapentin 300mg gabapentin( 300mg or al 1 three times daily ) Inactive -Hx Entry oral three times daily; Duration: 0 10/02/2024 5 *Pick strength-form from [facility] for eRX* Depakote 500 MG Tablet Delayed Release Depakote 500MG, 1 (one) Tablet daily # 30, 07/10/2019, No Refill. Inactive Oral daily; Duration: 30 07/10/2019 0 Dicyclomine HCl 20 MG Tablet Dicyclomine [...] Duration: 7 11/21/2020 1 *Pick strength-form from [facility] for eRX* Flomax 0.4MG Flomax 0.4MG, 1 (one ) Capsule daily as needed for kidney stones # 30, 02/10/2020, Ref. x1. Inactive Oral daily as needed for kidney stones; Duration: 30 02/10/2020 0 *Reorder from [facility] for eRx and Interaction Alerts* Cyclobenzaprine HCl 5 MG Tablet Cyclobenzaprine HCl 5MG, 1 (one) Tablet three times daily as needed # 30, 04/27/2021, No Refill. Inactive Oral three times daily as needed; Duration: 10 04/27/2021 1 Carafate 1 GM Tablet Carafate( 1GM Oral 1 (one) Tablet three times daily ) Inactive -Hx Entry Oral three times daily; Duration: 30 05/21/2019 Cefdinir 300 MG Capsule Cefdinir 300MG, 1 (one) Capsule twice a day # 10, 05/09/2022, No Refill. Inactive Oral twice a day; Duration: 5 05/09/2022 2 Cetirizine HCl 10 MG Tablet Cetirizine HCl 10MG, 1 (one) Tablet Tablet daily # 30, 07/31/2018, No Refill. Inactive Oral daily; Duration: 30 07/31/2018 9 Cipro 500 MG Tablet Cipro 500MG, 1 (one) Tablet bid # 10, 11/21/2017, No Refill. Inactive Oral bid; Duration: 5 11/21/2017 8 Ciprofloxacin HCl 500 MG Tablet Ciprofloxacin HCl 500MG, 1 (one) Tablet twice daily # 14, 11/30/2018, No Refill. Inactive Oral twice daily; Duration: 7 11/30/2018 9 Bactrim DS 800-160MG Bactrim DS 800-160M G, 1 (one) Tablet two times daily # 10, 05/14/2021, No Refill. Inactive Oral two times daily; Duration: 5 05/14/2021 *Pick strength-form from [facility] for eRX* Benzonatate 200MG Benzonatate 200MG, 1 (one) Capsule every 8 hours prn cough # 21, 06/21/2021, No Refill. Inactive Oral every 8 hours prn cough; Duration: 7 06/21/2021 2 *Pick strength-form from [employer] for eRX* Bromfed DM 30-2-10MG/5ML Bromfed DM 30-2-10MG/5ML, 10 Milliliter every 8 hours as needed for congestion and cough # 200, 07/17/2020, No Refill. Inactive Oral every 8 hours as needed for congestion and cough; Duration: 10 07/17/2020 1 *Reorder from [facility] for eRx and Interaction Alerts* Eambsohber-UCWG-Wamhgbjr 50-325-40 MG Capsule Eylvfzrhec-RKYT-Qpmeduim 50-325-40MG, 1 (one) Capsule every 4-6 hours as needed for migraine # 15, 03/29/2019, Ref. x1. Inactive Oral every 4-6 hours as needed for migraine; Duration: 30 03/29/2019 9 Acetaminophen-Codeine 300-30 MG Tablet acetaminophen-codeine( 300-30mg oral 1 every 6 hours as needed ) Inactive -Hx Entry Oral every 6 hours as needed; Duration: 0 10/02/2024 5 Ozempic 1 mg/dose(4 mg/3 mL Ozempic 1 mg/dose(4 mg/3 mL, 1 (one) mL weekly # 4, 05/07/2024, No Refill. Inactive subcutaneous weekly; Duration: 30 05/07/2024 5 *Reorder from [facility] for eRx and Interaction Alerts* Pravastatin 20mg pravastatin 20mg, 1 Tablet daily # 30, 09/12/2023, No Refill. Inactive oral daily; Duration: 30 09/12/2023 4 *Reorder from [facility] for eRx and Interaction Alerts* promethazine 6.25mg/5 mL promethazine 6. 25mg/5 mL, 4 Milliliter every 6 hours as needed for nausea # 360, 07/24/2022, No Refill. Inactive oral every 6 hours as needed for nausea; Duration: 5 07/24/2022 3 *Reorder from [facility] for eRx and Interaction Alerts* tamsulosin 0.4mg tamsulosin 0.4mg, 1 (one) Capsule daily # 7, 04/03/2022, No Refill. Inactive oral daily; Duration: 7 04/03/2022 3 *Reorder from [employer] [employer] for eRx and Interaction Alerts* Meclizine 12.5mg meclizine 12.5mg, 1 Tablet 2 to 3 times per day as needed for dizziness # 30, 09/06/2024, No Refill. Inactive oral 2 to 3 times per day as needed for dizziness; Duration: 0 09/06/2024 5 *Reorder from [employer] for eRx and Interaction Alerts* HumaLOG KwikPen Insulin 100unit/mL HumaLOG KwikPen Insulin 100unit/mL, 5 units subcutaneous three times a day with breakfast, lunch, and dinner # 5, 03/10/2024, Ref. x5. Inactive subcutaneous subcutaneous three times a day with breakfast, lunch, and dinner; Duration: 30 03/10/2024 4 *Reorder from [facility] for eRx and Interaction Alerts* Lantus Solostar U-100 Insulin 100 unit/mL(3 mL) Lantus Solostar U-100 Insulin 100 unit/mL(3 mL), 20 units at bedtime # 10, 05/07/2024, Ref. x5. Inactive subcutaneous at bedtime; Duration: 30 05/07/2024 5 *Reorder from [facility] for eRx and Interaction Alerts* Ozempic 2 mg/dose(8 mg/3 mL Ozempic 2 mg/dose(8 mg/3 mL, 2 (two) milligram SQ once weekly # 9, 03/14/2023, No Refill. Inactive subcutaneous SQ once weekly; Duration: 90 03/14/2023 3 *Reorder from [facility] for eRx and Interaction Alerts* Ozempic 0.25 mg or 0.5mg (2 mg/3 Ozempic 0.25 mg or 0.5mg (2 mg/3, 0.5 mg weekly # 3, 12/11/2023, No Refill. Inactive subcutaneous weekly; Duration: 28 12/11/2023 4 *Reorder from [facility] for eRx and Interaction Alerts* cyclobenzaprine 5mg cyclobenzaprine 5mg, 1 (one) Tablet three times daily # 15, 04/03/2022, No Refill. Inactive oral three times daily; Duration: 5 04/03/2022 3 *Reorder from [facility] for eRx and Interaction Alerts* Dexcom G5 Computer Technologist Kit Dexcom G5 Receive r Kit , 1 (one) Device as directed # 1, 11/10/2020, Ref. x11. Inactive as directed; Duration: 14 11/10/2020 1 DX: UNCONTROLLED INSULLIN DEPENDENT DIABETES FreeStyle Philip 2 [place] - Device FreeStyle Philip 2 [place] , 1 (one) Device as directed # 1, 03/19/2021, No Refill. Inactive as directed; Duration: 30 03/19/2021 1 FreeStyle Philip 2 Sensor - Miscellaneous FreeStyle Philip 2 Sensor , 1 (one) sensor replace sensor every 14 days # 2, 03/13/2024, Ref. x5. Inactive miscellaneous replace sensor every 14 days; Duration: 28 03/13/2024 4 2 sensors per 28 days Ozempic (2 MG/DOSE) 8 MG/3ML Solution Pen-injector Ozempic (2 MG/DOSE)( 8MG/3ML Subcutaneous 2 (two) SQ once weekly ) Inactive -Hx Entry Subcutaneous SQ once weekly; Duration: 90 02/22/2022 cholecalciferol (vitamin D3) 1,250 mcg(50,000 un cholecalciferol (vitamin D3) 1,250 mcg(50,000 un, 1 Capsule every week # 12, 03/11/2024, No Refill. Inactive oral every week; Duration: 84 03/11/2024 4 *Reorder from [facility] for eRx and Interaction Alerts* Dexcom G5 Mob/G4 Plat Sensor Dexcom G5 Mob/G4 Plat Sensor , 1 (one) SENSOR EVERY 2 WEEKS # 1, 11/10/2020, Ref. x6. Inactive EVERY 2 WEEKS; Duration: 14 11/10/2020 1 Bydureon BCise 2MG/0.85ML Bydureon BCise 2MG/0.85ML, 1 (one) Auto-injector weekly # 4, 08/30/2020, Ref. x6. Inactive Subcutaneous weekly; Duration: 30 08/30/2020 1 Please void Bydureon Rx, Rx for B-Cise was sent instead *Reorder from [facility] for eRx and Interaction Alerts* Trelegy Ellipta 100-62.5-25 MCG/ACT Aerosol Powder Breath Activated Trelegy Ellipta 100-62.5-25mcg, 1 inhalation daily # 28, 03/10/2024, Ref. x1. Inactive Inhalation daily; Duration: 28 03/10/2024 5 BD Pen Needle Micro U/F BD Pen Needle Mi scroll assembler U/F , 1 (one) needle to be used with Lantus insulin pen daily # 100, 04/11/2021, Ref. x2. Inactive to be used with Lantus insulin pen daily; Duration: 100 04/11/2021 1 Src Refills: 100 Guardian Sensor (3) Guardian Sensor (3) , as directed # 90, 11/08/2020, Ref. x3. Inactive as directed; Duration: 90 11/08/2020 1 1YR SUPPLY Trulicity 0.75 MG/0.5ML Solution Auto-injector Trulicity 0.75mg/0.5 mL, 1 (one) Solution Pen-injector once weekly for 4 weeks # 2, 07/09/2023, No Refill. Inactive Subcutaneous once weekly for 4 weeks; Duration: 30 07/09/2023 4 Trulicity 1.5 MG/0.5ML Solution Auto-injector Trulicity 1.5mg/0.5 mL, 1 (one) mL once weekly # 2, 07/09/2023, Ref. x1. Inactive Subcutaneous once weekly; Duration: 28 07/09/2023 4 Weeks 1-4: 0.75mg once weekly Weeks 5-8: 1.5mg weekly Accu-Chek Guide w/Device Kit Accu-Chek Guide , 1 (one) Kit as directed # 1, 06/19/2020, Ref. x1. Inactive as directed; Duration: 30 06/19/2020 0 Local Order: glucometer, lancets, strips. May substitute for whichever glucometer is cheapest with patient's insurance. + Complete Multi 0.267 & 373 MG Therapy Pack + Complete Multi 0.267 & 373MG, use as directed per instructions in pack # 1, 05/21/2019, No Refill. Inactive Oral use as directed per instructions in pack; Duration: 30 05/21/2019 0 Soliqua 100-33 UNT-MCG/ML Solution Pen-injector Soliqua [id number]-VRC/ML, 10 units at bedtime daily for type 2 diabetes # 1, 09/04/2020, Ref. x3. Inactive Subcutaneous at bedtime daily for type 2 diabetes; Duration: 30 09/04/2020 1 BD Pen Needle Hazel U/F BD Pen Needle Nan o U/F , 1 (one) Pen needle four times daily with meal time insulin 3x/day and basal insulin at bedtime # 120, 10/13/2020, Ref. x3. Inactive four times daily with meal time insulin 3x/day and basal insulin at bedtime; Duration: 30 10/13/2020 1 Src Refills: 120 Lyndsey Allergy 180MG Lyndsey Allergy 18 0MG, 1 (one) Tablet daily # 30, 10/28/2018, Ref. x6. Inactive Oral daily; Duration: 30 10/28/2018 9 *Pick strength-form from [facility] for eRX* Bydureon 2MG Bydureon 2MG, 2 (two ) mg once weekly # 4, 08/30/2020, Ref. x5. Inactive Subcutaneous once weekly; Duration: 30 08/30/2020 *Reorder from [facility] for eRx and Interaction Alerts* metFORMIN HCl ER 500 MG Tablet Extended Release 24 Hour metFORMIN HCl ER 500MG, 1 (one) Tablet once daily in the morning after breakfast # 30, 06/14/2020, Ref. x5. Inactive Oral once daily in the morning after breakfast; Duration: 30 06/14/2020 0 Breo Ellipta 100-25 MCG/ACT Aerosol Powder Breath Activated Breo Ellipta 100-25mcg/dose, 1 inhalation daily # 28, 12/11/2023, No Refill. Inactive Inhalation daily; Duration: 28 12/11/2023 4 Vimovo 500-20MG Vimovo 500-20MG, 1 ( one) Tablet two times daily as needed # 60, 06/14/2019, Ref. x6. Inactive Oral two times daily as needed; Duration: 30 06/14/2019 0 *Reorder from [facility] for eRx and Interaction Alerts* ZyrTEC-D Allergy & Congestion 5-120MG ZyrTEC-D Allergy & Congestion 5-120MG, 1 (one) Tablet daily # 20, 08/11/2018, No Refill. Inactive Oral daily; Duration: 20 08/11/2018 9 *Pick strength-form from [facility] for eRX* Vitamin B 12 500MCG Vitamin B 12( 500MCG Oral 1 tablet daily ) Inactive -Hx Entry Oral daily; Duration: 0 12/08/2020 *Pick strength-form from [facility] for eRX* B-6 100MG B-6( 100MG Oral 1 da geoff ) Inactive -Hx Entry Oral daily; Duration: 0 12/24/2020 *Pick strength-form from [employer] for eRX* Dulera 100-5 MCG/ACT Aerosol Dulera 100-5mcg/actuat, 2 puffs 2 times per day # 13, 12/23/2023, Ref. x5. Inactive Inhalation 2 times per day; Duration: 30 12/23/2023 4 Vitamin B Complex - Tablet Vitamin B Complex( Oral 1 tablet daily ) Inactive -Hx Entry Oral daily; Duration: 0 07/05/2019 Vitamin D3 50 MCG (2000 UT) Tablet Vitamin D3 50 MCG(2000 UT), 1 (one) Tablet daily # 30, 05/21/2019, No Refill. Inactive Oral daily; Duration: 30 05/21/2019 1 Voltaren 1% Voltaren 1%, 2 (two) gram Apply to the affected joint(s) twice daily as needed for pain # 100, 08/11/2020, No Refill. Inactive External Apply to the affected joint(s) twice daily as needed for pain; Duration: 10 08/11/2020 1 *Pick strength-form from [employer] for eRX* Zofran 4MG Zofran( 4MG Oral 1 d aily ) Inactive -Hx Entry Oral daily; Duration: 0 07/06/2019 *Reorder from [facility] for eRx and Interaction Alerts* Zoloft 50 MG Tablet Zoloft 50MG, 1 (one) Tablet daily # 90, 07/10/2019, Ref. x3. Inactive Oral daily; Duration: 90 07/10/2019 0 Symbicort 160-4.5 MCG/ACT Aerosol Symbicort 160-4.5MCG/ACT, 2 puffs Puff daily # 1, 08/29/2021, No Refill. Inactive Inhalation daily; Duration: 30 08/29/2021 2 Topamax 50 MG Tablet Topamax 50MG, 1 (on e) Tablet daily # 30, 05/21/2019, No Refill. Inactive Oral daily; Duration: 30 05/21/2019 0 traMADol HCl 50MG TraMADol HCl 50MG, # 0, 07/22/2018, No Refill. Inactive Oral; Duration: 0 07/22/2018 9 *Pick strength-form from [employer] for eRX* Ventolin HFA 108 (90 Base) MCG/ACT Aerosol Solution Ventolin HFA 108 (90 Base)MCG/ACT, 2 puffs every 4 hours PRN, 09/21/2018, No Refill. Inactive Inhalation every 4 hours PRN; Duration: 0 09/21/2018 9 Sucralfate 1 GM/10ML Suspension Sucralfate 1GM/10ML, 10 [...] told otherwise by GI Src Refills: 280 ProAir HFA 108 (90 Base)MCG/ACT ProAir HFA 108 (90 Base)MCG/ACT, 2 (two) Puff every 4-6 hours as needed for wheezing # 1, 11/21/2020, Ref. x2. Inactive Inhalation every 4-6 hours as needed for wheezing; Duration: 30 11/21/2020 1 *Reorder from [employer] for eRx and Interaction Alerts* Promethazine HCl 25 MG Tablet Promethazine HCl 25MG, 1 (one) Tablet every 8 hours as needed for nausea # 21, 12/09/2018, No Refill. Inactive Oral every 8 hours as needed for nausea; Duration: 7 12/09/2018 9 Protonix 40 MG Tablet Delayed Release Protonix( 40MG Oral 1 daily ) Inactive -Hx Entry Oral daily; Duration: 0 08/18/2019 Provera 10 MG Tablet Provera( 10MG Oral 1 daily ) Inactive -Hx Entry Oral daily; Duration: 0 12/08/2020 Simvastatin 20MG Simvastatin( 20MG Or al 1 tablet daily ) Inactive -Hx Entry Oral daily; Duration: 0 07/16/2018 *Pick strength-form from [employer] for eRX* Phentermine HCl 37.5 MG Tablet Phentermine HCl 37.5MG, 1 (one) Tablet daily # 30, 12/13/2019, No Refill. Inactive Oral daily; Duration: 30 12/13/2019 predniSONE 50 MG Tablet predniSONE 50MG, 1 (one) Tablet daily # 5, 06/21/2021, No Refill. Inactive Oral daily; Duration: 5 06/21/2021 2 27-0.8 MG Tablet 27-0. 8MG, 1 (one) Tablet daily # 90, 06/20/2020, Ref. x1. Inactive Oral daily; Duration: 90 06/20/2020 1 Prevacid 30 MG Capsule Delayed Release Prevacid( 30MG Oral 1 (one) Capsule three times daily ) Inactive -Hx Entry Oral three times daily; Duration: 30 05/21/2019 Phentermine HCl 37.5 MG Capsule Phentermine HCl 37.5MG, 1 (one) Capsule daily # 30, 03/01/2019, No Refill. Inactive Oral daily; Duration: 30 03/01/2019 9 Nortriptyline HCl 25 MG Capsule Nortriptyline HCl 25MG, 1 Capsule at bedtime # 90, 04/10/2019, Ref. x3. Inactive Oral at bedtime; Duration: 90 04/10/2019 0 Omeprazole 20 MG Capsule Delayed Release Omeprazole 20MG, 1 (one) Capsule in the morning # 90, 10/29/2018, Ref. x1. Inactive Oral in the morning; Duration: 90 10/29/2018 0 Ondansetron 8 MG Tablet Disintegrating Ondansetron 8MG, 1 (one) Tablet three times daily, as needed for nausea # 21, 09/22/2020, Ref. x2. Inactive Oral three times daily, as needed for nausea; Duration: 7 09/22/2020 1 Ondansetron HCl 4 MG Tablet Ondansetron HCl 4MG, 1-2 Tablet three times daily as needed for nausea # 30, 07/10/2021, Ref. x6. Inactive Oral three times daily as needed for nausea; Duration: 5 07/10/2021 2 Phenazopyridine HCl 200MG Phenazopyridin e HCl 200MG, 1 (one) Tablet three times daily as needed for urinary symptoms # 21, 01/04/2019, Ref. x2. Inactive Oral three times daily as needed for urinary symptoms; Duration: 7 01/04/2019 9 *Pick strength-form from [employer] for eRX* Nitrofurantoin 100MG Nitrofurantoin( 100 MG Oral 2 daily ) Inactive -Hx Entry Oral daily; Duration: 0 07/05/2019 *Pick strength-form from [employer] for eRX* Nitrofurantoin Monohyd Macro 100 MG Capsule Nitrofurantoin Monohyd Macro 100MG, 1 (one) Capsule two times daily # 14, 12/25/2018, No Refill. Inactive Oral two times daily; Duration: 7 12/25/2018 9 Progress Notes * SWANSONGeorgiaDOB:[birth year] (50 yo F)Acc No.[id number]:05/14/2025 Patient: [place] CHRISTIE :1975 A ge:49 Y S ex:Female Address:[address] [place] [id number] * Refills Stop Meclizine, 12.5mg, oral, 30, [...] needed for congestion and cough, 10 Stop Bivimlzzxq-ZVVS-Dkbmvhcu Capsule, 50-325-40 MG, Oral, 15, Ggwkodqirq-IQFP-Lodostih 50-325-40MG, 1 (one) Capsule every 4-6 hours [...] ) Inactive -Hx Entry, daily, 0 Stop Simvastatin, 20MG, Oral, Simvastatin( 20MG Oral 1 tablet daily ) Inactive - Hx Entry, daily, 0 Stop Sucralfate Suspension, 1 [...] No Refill. Inactive, daily, 30 Stop traMADol HCl, 50MG, Oral, 0, TraMADol HCl 50MG, # 0, [...] ) Inactive -Hx Entry, daily, 0 Stop Zoloft Tablet, 50 MG, Oral, 90, Zoloft 50MG, 1 (one) Tablet [...] Inactive, 2 times per day, 30 Stop Vimovo, 500-20MG, Oral, 60, Vimovo 500-20MG, 1 (one) Tablet two times daily as needed # 60, 06/14/2019, Ref. x6. Inactive, two times daily as needed, 30 Stop BD Pen Needle Hazel U/F, 120, BD Pen Needle Hazel U/F , [...] Solution Pen-injector, 100-33 UNT-MCG/ML, Subcutaneous, 1, Soliqua [id number]/ML, 10 units at bedtime daily for type 2 diabetes # 1, 09/04/2020, Ref. x3. Inactive, at bedtime daily for type 2 diabetes, 30 Stop Dexcom G5 Mob/G4 Plat Sensor, 1, Dexcom G5 Mob/G4 Plat Sensor , 1 (one) SENSOR EVERY 2 WEEKS # 1, 11/10/2020, Ref. x6. Inactive, EVERY 2 WEEKS, 14 Stop Bydureon BCise, 2MG/0.85ML, Subcutaneous, 4, Bydureon BCise 2MG/0.85ML, 1 (one) Auto-injector weekly # 4, 08/30/2020, Ref. x6. Inactive, weekly, 30 Stop Trelegy Ellipta Aerosol Powder Breath Activated, 100-62.5-25 MCG/ACT, Inhalation, 28, Trelegy Ellipta 100-62.5-25mcg, 1 inhalation daily # 28, 03/10/2024, Ref. x1. Inactive, daily, 28 Stop BD Pen Needle Micro U/F, 100, BD Pen Needle Micro U/F , 1 (one) needle to be used with Lantus insulin pen daily # 100, 04/11/2021, Ref. x2. Inactive, to be used with Lantus insulin pen daily, 100 Stop Guardian Sensor (3), 90, Guardian Sensor (3) , as directed # 90, 11/08/2020, Ref. x3. Inactive, as directed, 90 Stop Dexcom G5 Computer Technologist Kit, 1, Dexcom G5 Computer Technologist Kit , 1 (one) Device as directed # 1, 11/10/2020, Ref. x11. Inactive, as directed, 14 Stop FreeStyle Philip 2 [place] Device, - , 1, FreeStyle Philip 2 [place] , 1 (one) Device as directed # [...] 7 Subjective: * Chief Complaints: * E MR-Hcétor * * Date:
--- OUTSIDE RECORDS SUMMARY | 2025-05-15 03:00 | XMS_ITS ---
Author Organization [facility] [employer] are Address [address] [place] [address] Care Team Providers Care Key Account Director Name Role Phone MRS. Sunni Ramon Primary [...] for neck tension; Duration: 90 *Reorder from [facility] for eRx and Interaction Alerts* 11/04/2024 Active cholecalciferol (vitamin D3) 50 mcg(2,000 uni cholecalciferol (vitamin D3) 50 mcg(2,000 uni, 1 (one) Tablet daily # 30, 11/20/2022, No Refill. Active oral daily; Duration: 30 *Reorder from [facility] for eRx and Interaction Alerts* 11/20/2022 Active Ozempic 2 mg/dose(8 mg/3 mL Ozempic( 2 mg/dose(8 mg/3 mL subcutaneous 2 mg one weekly ) Active -Hx Entry subcutaneous one weekly; Duration: 0 *Reorder from [facility] for eRx and Interaction Alerts* 11/04/2024 Active Nurtec ODT 75mg Nurtec ODT 75mg, 1 (one) Tablet daily at onset of migraine headache # 8, 01/09/2024, Ref. x2. Active oral daily at onset of migraine headache; Duration: 30 *Reorder from [facility] for eRx and Interaction Alerts* 01/09/2024 Active atorvastatin 40mg atorvastatin 40mg, 1 (one) Tablet at bedtime for high cholesterol # 90, 09/13/2024, Ref. x1. Active oral at bedtime for high cholesterol; Duration: 90 *Reorder from [facility] for eRx and Interaction Alerts* 09/13/2024 [...] Entry Oral daily; Duration: 30 *Reorder from [facility] for eRx and Interaction Alerts* 04/27/2021 Active FreeStyle Philip 3 Sensor - Miscellaneous FreeStyle Philip 3 Sensor( miscellaneous every 14 days ) Active -Hx Entry miscellaneous every 14 days; Duration: 0 11/04/2024 Active Ajovy Autoinjector 225mg/1.5 mL Ajovy Autoinjector( 225mg/1.5 mL subcutaneous 1 every 12 weeks ) Active -Hx Entry subcutaneous every 12 weeks; Duration: 0 *Reorder from [facility] for eRx and Interaction Alerts* 11/04/2024 [...] other day; Duration: 30 *Pick strength-form from [facility] for eRX* 11/09/2019 Active Vitamin B-12 1000 MCG Tablet Vitamin B-12 1000MCG, 1 (one) Tablet daily # 30, 04/27/2021, No Refill. Active Oral daily; Duration: 30 04/27/2021 Active PROzac 20mg PROzac 20mg, 1 Capsule daily # 90, 12/04/2024, No Refill. Active oral daily; Duration: 90 *Reorder from [facility] for eRx and Interaction Alerts* 12/04/2024 Active Vitamin B-6 25 MG Tablet Vitamin B-6 25MG, 1 (one) Tablet daily # 30, 04/27/2021, No Refill. Active Oral daily; Duration: 30 04/27/2021 Active Albuterol Sulfate 90mcg/actuat albuterol sulfate 90mcg/actuat, 2 Puff q 4 hours prn wheezing # 1, 01/22/2024, Ref. x2. Active inhalation q 4 hours prn wheezing; Duration: 30 *Pick strength-form from [facility] for eRX* 01/22/2024 Active ALPRAZolam 0.5 MG Tablet ALPRAZolam 0.5mg, 1 (one) tablet two times daily, as needed FOR PANIC ATTACHS # 20, 10/12/2024, No Refill. Active Oral two times daily, as needed FOR PANIC ATTACHS; Duration: 10 DX: PANIC ATTACkS [place] Controlled Substance Reporting Database reviewed and patient [...] Encounter Location Date Provider Diagnosis [facility] [address] [facility] [place] [address] 05/15/2025 Provider Migration Plan Of Treatment No Information Progress Notes * Georgia ARAGONDOB:[birth year] (50 yo F)Acc No.[id number]:05/15/2025 Patient: Georgia CHRISTIE :1975 A ge:49 Y S ex:Female Address:[address] [place] [address] Subjective: * Chief Complaints: * E MR-Héctor [...] , Notes to Pharmacist: *Pick strength-form from [facility] for eRX*ALPRAZolam 0.5 MG Tablet ALPRAZolam 0.5mg, 1 (one) tablet two times daily, as needed FOR PANIC ATTACHS # 20, 10/12/2024, No Refill. Active Oral two times daily, as needed FOR PANIC ATTACHS , Notes to Pharmacist: DX: PANIC ATTACkS [place] Controlled Substance Reporting Database reviewed and patient found to be in compliance with prescription.Ferrous Sulfate 325 (65 Fe)MG Ferrous Sulfate 325 (65 Fe)MG, 1 tablet Tablet daily or every other day # 30, 11/09/2019, Ref. x2. Active Oral daily or every other day , Notes to Pharmacist: *Pick strength-form from [facility] for eRX*Ondansetron 4 MG Tablet Disintegrating ondansetron 4mg, 1 (one) Tablet as needed for nausea # 30, 02/25/2024, No Refill. Active Oral as needed for nausea PROzac 20mg PROzac 20mg, 1 Capsule daily # 90, 12/04/2024, No Refill. Active oral daily , Notes to Pharmacist: *Reorder from [facility] for eRx and Interaction Alerts*Vitamin B-12 1000 [...] daily , Notes to Pharmacist: *Reorder from [facility] for eRx and Interaction Alerts*Farxiga 10 MG [...] weeks , Notes to Pharmacist: *Reorder from [facility] for eRx and Interaction Alerts*atorvastatin 40mg atorvastatin 40mg, 1 (one) Tablet at bedtime for high cholesterol # 90, 09/13/2024, Ref. x1. Active oral at bedtime for high cholesterol , Notes to Pharmacist: *Reorder from [facility] for eRx and Interaction Alerts*cholecalciferol (vitamin D3) 50 mcg(2,000 uni cholecalciferol (vitamin D3) 50 mcg(2,000 uni, 1 (one) Tablet daily # 30, 11/20/2022, No Refill. Active oral daily , Notes to Pharmacist: *Reorder from [facility] for eRx and Interaction Alerts*cyclobenzaprine 5mg cyclobenzaprine 5mg, 1 tablet Tablet at bedtime as needed for neck tension # 90, 11/04/2024, Ref. x1. Active oral at bedtime as needed for neck tension , Notes to Pharmacist: *Reorder from [facility] for eRx and Interaction Alerts*Nurtec ODT 75mg Nurtec ODT 75mg, 1 (one) Tablet daily at onset of migraine headache # 8, 01/09/2024, Ref. x2. Active oral daily at onset of migraine headache , Notes to Pharmacist: *Reorder from [facility] for eRx and Interaction Alerts*Ozempic 2 mg/dose(8 mg/3 mL Ozempic( 2 mg/dose(8 mg/3 mL subcutaneous 2 mg one weekly ) Active -Hx Entry subcutaneous one weekly , Notes to Pharmacist: *Reorder from [facility] for eRx and Interaction Alerts*Taking Albuterol Sulfate 90mcg/actuat albuterol sulfate 90mcg/actuat, 2 Puff q 4 hours prn wheezing # 1, 01/22/2024, Ref. x2. Active inhalation q 4 hours prn wheezing , Notes to Pharmacist: *Pick strength-form from [facility] for eRX*Taking ALPRAZolam 0.5 MG Tablet ALPRAZolam 0.5mg, 1 (one) tablet two times daily, as needed FOR PANIC ATTACHS # 20, 10/12/2024, No Refill. Active Oral two times daily, as needed FOR PANIC ATTACHS , Notes to Pharmacist: DX: PANIC ATTACkS [place] Controlled Substance Reporting Database reviewed and patient found to be in compliance with prescription.Taking Ferrous Sulfate 325 (65 Fe)MG Ferrous Sulfate 325 (65 Fe)MG, 1 tablet Tablet daily or every other day # 30, 11/09/2019, Ref. x2. Active Oral daily or every other day , Notes to Pharmacist: *Pick strength-form from [facility] for eRX*Taking Ondansetron 4 MG Tablet Disintegrating ondansetron 4mg, 1 (one) Tablet as needed for nausea # 30, 02/25/2024, No Refill. Active Oral as needed for nausea Taking PROzac 20mg PROzac 20mg, 1 Capsule daily # 90, 12/04/2024, No Refill. Active oral daily , Notes to Pharmacist: *Reorder from [facility] for eRx and Interaction Alerts*Taking Vitamin B-12 [...] daily , Notes to Pharmacist: *Reorder from [facility] for eRx and Interaction Alerts*Taking Farxiga 10 [...] weeks , Notes to Pharmacist: *Reorder from [facility] for eRx and Interaction Alerts*Taking atorvastatin 40mg atorvastatin 40mg, 1 (one) Tablet at bedtime for high cholesterol # 90, 09/13/2024, Ref. x1. Active oral at bedtime for high cholesterol , Notes to Pharmacist: *Reorder from [facility] for eRx and Interaction Alerts*Taking cholecalciferol (vitamin D3) 50 mcg(2,000 uni cholecalciferol (vitamin D3) 50 mcg(2,000 uni, 1 (one) Tablet daily # 30, 11/20/2022, No Refill. Active oral daily , Notes to Pharmacist: *Reorder from [facility] for eRx and Interaction Alerts*Taking cyclobenzaprine 5mg cyclobenzaprine 5mg, 1 tablet Tablet at bedtime as needed for neck tension # 90, 11/04/2024, Ref. x1. Active oral at bedtime as needed for neck tension , Notes to Pharmacist: *Reorder from [facility] for eRx and Interaction Alerts*Taking Nurtec ODT 75mg Nurtec ODT 75mg, 1 (one) Tablet daily at onset of migraine headache # 8, 01/09/2024, Ref. x2. Active oral daily at onset of migraine headache , Notes to Pharmacist: *Reorder from [facility] for eRx and Interaction Alerts*Taking Ozempic 2 mg/dose(8 mg/3 mL Ozempic( 2 mg/dose(8 mg/3 mL subcutaneous 2 mg one weekly ) Active -Hx Entry subcutaneous one weekly , Notes to Pharmacist: *Reorder from [facility] for eRx and Interaction Alerts* * Allergies: A llergies Reconciled: AllergyAzithromycin: AllergyAzithromycin *CHEMICALS*: AllergyBanana (Diagnostic): AllergyBlueberry Flavor: AllergyBlueberry Flavor *PHARMACEUTICAL ADJUVANTS*: AllergyErythromycin: AllergyIodine: AllergyIodine *ANTISEPTICS & DISINFECTANTS*: AllergyLactase *DIETARY PRODUCTS/DIETARY MANAGEMENT PRODU: AllergyMontelukast Sodium *ANTIASTHMATIC AND BRONCHODILAT: AllergyPenicillins: AllergyRaspberry Flavor *PHARMACEUTICAL ADJUVANTS*: AllergyShellfish: AllergyShellfish-derived Products: Allergy * * Date:
--- OUTSIDE RECORDS SUMMARY | 2025-06-06 03:30 | XMS_ITS ---
Author Organization [facility] are Address [address] [place] [address] Care Team Providers Care Tie Worker Name Role Phone Tristen MRS. Moeller Primary Care Provider Benedicto Talley MD Unavailable Unavailable All Meade [phone] REASON FOR VISIT follow up Encounters Encounter Location Date Provider Diagnosis [facility] [address] [place] [address] 06/06/2025 All Meade Plan Of Treatment No Information Progress Notes * [place] ARAGONDOB:[birth year] (50 yo F)Acc No.[id number]:06/06/2025 Progress Notes Patient: Geo godinez [place] Susana Provider: Samantha Meade NP :1975 A ge:50 Y S ex:Female Date:06/06/2025 Address:[address] [place], [place] [id number] Pcp:MRS. Moeller Anastacia Ramon Subjective: * Chief Complaints: * F ollow up Billing Information: * Procedure Codes: * Electronic signature of All Meade NP on 06/23/2025 at 12:46 PM EST Sign off status: Pending * Provider: Samantha Meade NP Date: 08/07/2024 Generated for Xenia valdez/Fabio/eTransmitting on: 08/24/2024 12:46 PM EST
[2025-06-23] VITALS (10 sets, daily range): BP systolic 105–128; BP diastolic 67–85; PULSE 70–99; RESP 18; TEMP 36.6; O2SAT 98–100; BMI 44.6
--- OUTSIDE RECORDS SUMMARY | 2025-06-23 11:45 | XMS_ITS | Patient Health Record ---
Author Organization [facility] Address [address] [place] [address] Care Team Providers Care Brown Sourer Name Role Phone Sunni Ramon Primary Care Provider Benoit Chance [phone] Allergies Allergen (clinical drug ingredient) Drug/Non Drug [...] Status W/U Status Risk Notes Problem Cervicalgia (97107812) Cervicalgia (M54.2) Active confirmed Problem Lumbar radiculopathy (058010480) Radiculopathy, lumbar region (M54.16) Active confirmed Problem Cervical radiculopathy (15376324) Cervical radiculopathy (M54.12) Active confirmed Problem Neck pain (00937591) Neck pain (M54.2) Active confirmed Problem Post-concussion syndrome (57835415) Post-concussion syndrome (F07.81) Active confirmed Plan Of Treatment No Information Insurance Providers Payer Name Payer Address Payer Phone Subscriber Number Group Number Insured Name Patient Relationship to Insured Coverage Start Date Coverage End Date [employer] [address] [address] [place] [address] [id number] [id number] [employer] Self - patient is the insured Medical [...]
--- OUTSIDE RECORDS SUMMARY | 2025-06-23 11:45 | XMS_ITS | Clinical Summary ---
Author Organization [employer] Address [address] [place] [address] Care Team Providers Care Processing Analyst Name Role Phone Unassigned, Doctor Primary Care [...] prosecute any alcohol or drug abuse patient. [employer] [facility] Allergies Active Allergy Reactions Criticality Noted Date [...] monitor ordered. Pt declined sleep study d/t director of child welfare services issues Holter report: NSR, sinus arrhythmia with [...] in Comments Son Ben Worrell lives in nursing home Relation Name Status Comments Brother Alive Daughter [...] 07/11/2015 Medical Devices Implanted Type Area Machine Heel Sprayer Device Identifier Shelf Expiration Date Model / Serial / Lot Stent Uret Contour [id number] - [id number] - [id number] Implanted:Qty: 1 on 04/16/2018 by Jefe Veliz MD at [facility] Left: [employer] 12/28/2020 [id number] / [id number] / [id number] Procedures Procedure Name Priority Date/Time Associated Diagnosis [...] - 5.6 % 07/20/2024 6:53 PM EST [facility] (ACCREDITED BY [facility] [employer] [facility] [employer] PATH[facility]) Est Avg Glucose 134 mg/dL 6:53 PM EST [facility] (ACCREDITED BY [facility] [employer] [facility] [employer] [facility]) Blood BLOOD SPECIMEN / Unknown Venipuncture / Unknown 07/19/2024 11:25 PM EST 07/19/2024 11:30 PM EST Narrative [facility] (ACCREDITED BY [facility] [employer] [facility] [employer] [facility]) - 07/20/2024 6:53 PM EST This assay has been cleared by the FDA to be used as an aid in the diagnosis of diabetes and in identifying patients who may be at risk for developing diabetes. The threshold for diagnosis of diabetes is an HA1c result > or = 6.5%. Lanre Morrison MD LAB BLOOD ORDERABLES Zulay conley Result [facility] (ACCREDITED BY [facility] [employer] [facility] [employer] [facility]) [address] [place] [address] * PAP, SUREPATH SCREEN (11/01/2021 12:43 PM EDT) Case Report GY - Gynecologic Cytology Case: [id number] Authorizing Provider: Mehnaz Gordon MD Collected: 11/01/2021 1243 Ordering Location: [facility] Received: 11/01/2021 1243 First Screen: Ángela Rust CT (ASCP) Specimen: Pap, SurePath Screen, Endocervical/Ecto cervical 11/05/2021 10:55 AM [facility] (ACCREDITED BY [facility] [employer] PATH[employer] S) Clinical Information LMP 07/31/2021 Cryotherapy/Laser Therapy No Cycles Irregular Radiation/Chemoth erapy No No /Lactat ing No Abnormal Bleeding Yes Abnormal Pap History No Hormones No Previous Dx X Ray Technician Malignancy No 11/05/2021 10:55 AM [facility] (ACCREDITED BY [facility] [employer] [facility]) Specimen Adequacy Satisfactory for evaluation, endocervical/carson sformation zone component present 11/05/2021 10:55 AM [facility] (ACCREDITED BY [facility] [employer] [facility] [employer] [facility]) Interpretation Negative for intraepithelial lesion or malignancy 11/05/2021 10:55 AM [facility] (ACCREDITED BY THE [employer] [facility] [employer] PATH[facility] S) at 1054 EDT Comments Acute inflammation. 11/05/2021 10:55 AM [facility] (ACCREDITED BY THE [employer] [facility] [employer] PATH[employer] S) Pap Disclaimer The Pap test is a screening test which carries an inherent false negative rate. These test results should be correlated with the patient's clinical findings and history. This Pap test was processed using an automated screening system. 11/05/2021 10:55 AM [facility] (ACCREDITED BY THE [employer] [facility] [employer] PATH[employer]IST S) Pap-X Ray Technician CERVIX UTERI STRUCTURE / Unknown 11/01/2021 12:43 PM EDT 11/01/2021 12:43 PM EDT us Mehnaz Gordon MD LAB PATHOLOGY/CYTOLOGY ORDER BUFFY Final Result [facility] (ACCREDITED BY THE [employer] [facility] [employer] [facility]OLOGISTS) [address] [id number] * BREAST MAMMOGRAM 3D GRZEGORZ SCREENING BILATERAL [...] 21, 2020, TOMOSYNTHESIS BILATERAL DIAGNOSTIC performed at [facility]. The breast tissue is almost entirely fat. [...] 21, 2020, TOMOSYNTHESIS BILATERAL DIAGNOSTIC performed at [facility]. The breast tissue is almost entirely fat. There are benign appearing calcifications in both breasts. There is no other significant finding on the study in either breast. BI-RADS: Benign (BIRADS 2) Recommendation: Mammogram of both breasts in 1 year. [facility] RADIOLOGY MAMMOGRAPHY ORDERABLES Final Result * HEPATITIS [...] a more specific supplemental or PCR testing. [facility] w/Reflex to Verification test #[id number]. Result Narrative [facility] Comment: TESTING PERFORMED BY: - [facility] [address] Director: Luther Fields MD 07/11/2015 12:1 3 PM EST 07/11/2015 8:32 PM EST Naila Vallejo MD LAB BLOOD ORDERABLES Fin al Result [facility] [address] [place] [address] NOT ON FILE [facility] 01 N/A from [...] 6:51 PM 04/05/2019 8:01 PM Care Teams Processing Analyst Relationship Specialty Start Date End Date Unassigned, [...] any alcohol or drug abuse patient. [facility]
--- OUTSIDE RECORDS SUMMARY | 2025-06-23 11:45 | XMS_ITS | Encounter Summary ---
Author Organization [facility] Address [address] [place] [address] Care Team Providers Care Senior Business Development Manager Name Role Phone Aislinn Merlos Primary Care Provider Encounter Details Date Type Department Care Team (Late st Contact Info) Description 10/07/2024 [employer] Documentation On File [address] [place] [address] Social History Tobacco Use Types Packs/Day Years Used Date Smoking Tobacco: Never Smokeless Tobacco: Never Alcohol Use Standard Drinks/Week Comments Not Currently 0 (1 standard drink = 0.6 oz pur e alcohol) [facility] Utilities Answer Date Recorded In the [...] Recorded Patient Health Questionnaire-2 Score 6 05/31/2024 [facility] of Occupat ional Health - Occupational Stress [...] Info) Description 10/25/2025 11:00 AM EDT Telemedicine [facility] [address] [place] [address] Christophe Crowley NP [address] [place] [address] Follow-up disposition: Return in about 6 months (around 10/25/2025) for Christophe, video visit, Tuesdays. documented as of this encounter Visit Diagnoses Not on filedocumented in this encounter Care Teams Senior Business Development Manager Relationship Specialty Start Date End Date Aislinn Merlos PA [address] [place] [address] PCP - General 08/13/21 documented as of this encounter
--- OUTSIDE RECORDS SUMMARY | 2025-06-23 11:46 | XMS_ITS | Clinical Summary ---
Author Organization [employer] Address [address] [place] [address], [facility] [address] [place] [address] Phone Care Team Providers Care Shingle Weaver Name Role Phone Unavailable Primary Care Provider [...] Continuous Glucose Sensor (FreeStyle Philip 2 Sensor) [facility] USE ONE sensor replace sensor EVERY 14 [...] patient's age to complete this topic Insurance [employer] [place]
--- OUTSIDE RECORDS SUMMARY | 2025-06-23 11:46 | XMS_ITS | Encounter Summary ---
Author Organization [facility] Address [address] [place] [address] Care Team Providers Care Book Reviewer Name Role Phone Naila Vallejo MD Primary Care Provider [phone] Aislinn Merlos Primary Care Provider [phone] Sandra Wood Unavailable Unavailable Serena Meyer Unavailable Unavailable Krys Oropeza RN Unavailable Unavailable Reason for Visit * Reason Onset Date Comments Obesity 05/11/2015 Med/Surg Encounter Details Date Type Department Care Team (Late st Contact Info) Description 05/11/2015 Documentation [facility] [address] [place] [phone] Tawny Chaudhary Obesity (Med/Surg) Social History [...] Info) Description 10/25/2025 11:00 AM EDT Telemedicine [facility] [address] [place] [id number] Christophe Crowley NP [address] [place] [address] Follow-up disposition: Return in about 6 months (around 10/25/2025) for Riddhiing, video visit, Tuesdays. documented as of this encounter Visit Diagnoses Not on filedocumented in this encounter Care Teams Book Reviewer Relationship Specialty Start Date End Date Naila Vallejo MD [address] [place] [address] PCP - General Family Medicine 05/11/15 08/12/21 Aislinn Merlos PA [address] [place], [place] [id number] PCP - General 08/13/21 Sandra Wood [facility] 05/13/2405/01 Serena Meyer [facility] 05/24/2406/01 Krys Oropeza, mold design engineer [facility]) 06/01/24 4 documented as of this encounter
--- OUTSIDE RECORDS SUMMARY | 2025-06-23 11:47 | XMS_ITS | Clinical Summary ---
Author Organization [facility] Address [address] [place] [address] Care Team Providers Care Powerbuilder Name Role Phone Aislinn Merlos Primary Care Provider [phone] Allergies Active Allergy Reactions Criticality Noted Date [...] complication, without long-term current use of insulin ([facility]) Inject 0.5 mLs (7.5 mg total) subcutaneously every 7 (seven) days 2 mL 3 04/26/20 25 Active dapagliflozin propanediol (FARXIGA) 10 mg tabletIndications :Type 2 diabetes mellitus without complication, with long-term current use of insulin ([facility]) Take 1 tablet (10 mg total) by mouth once daily 90 tablet 3 06/08/20 25 026 Active blood glucose diagnostic test stripIndications: Type 2 diabetes mellitus without complication, with long-term current use of insulin ([facility]) Use to check 3 times a day for blood glucose. 100 each 3 06/08/20 25 Active lancetsIndication s:Type 2 diabetes mellitus without complication, with long-term current use of insulin ([facility]) Use 3 times a day for glucose mornitoring. 100 each 3 06/08/20 25 Active pen needle, diabetic 32 gauge x 5/16 needle Use as directed 100 each 12 06/08/20 25 026 Active dapagliflozin propanediol (FARXIGA) 10 mg tabletIndications :Type 2 diabetes mellitus without complication, with long-term current use of insulin ([facility]) Take 1 tablet (10 mg total) by [...] complication, without long-term current use of insulin ([facility]) 12/06/2024 Obesity, Class III, BMI 40-49.9 (morbid obesity) 12/06/2024 Hypercholesterolemia 12/06/2024 Seizures ([facility]) 06/29/2019 Resolved Problems Problem Noted Date Diagnosed Date Resolved Date Spell of abnormal behavior 02/22/2020 0 02/24/2020 Encounters Date Type Department Care Team Description 06/16/2025 Documentation Center Line Outpatient Pharmacy [address] [facility] [address] [place] [address] Brenda Padilla Medication Prior Authorization (Mounjaro 7.5mg) 04/26/2025 11:00 AM EDT Telemedicine Center Line Endocrinology [address] [facility] [place] [id number] Christophe Crowley NP Type 2 diabetes mellitus without complication, without long-term current use of insulin ([facility]) (Primary Dx); Obesity, Class III, BMI 40-49.9 (morbid obesity) ([facility]); Hypercholesterolemia from Last 3 Months Family History [...] drink = 0.6 oz pur e alcohol) [facility] Utilities Answer Date Recorded In the past 12 months has e [employer], gas, oil, or water [employer] threatened to shut off services in your home? Yes 05/31/2024 Overall Financial Resource Strain (CARDIA) Answe r Date Recorded How hard is it for you to pa y for the very basics like food, housing, medical care, and heating? Somewhat hard 05/31/2024 PHQ-2 Answer Date Recorded Patient Health Questionnaire-2 Score 6 05/31/2024 [place] [facility] - Occupational Stress [...] were you homeless or living in a half-way (including now)? No 05/31/2024 Interpersonal Safety Answer [...] Info) Description 10/25/2025 11:00 AM EDT Telemedicine Center Line Endocrinology [address] [place] [address] Christophe Crowley NP [address] [place] [address] Follow-up disposition: Return in about 6 months [...] Date/Time Associated Diagnosis Comments POC HBA1C (GLYCOHEMOGLOBIN) ([facility] ONLY) Routine 12/06/2024 1:17 PM EDT from Last 3 Months or Most Recently Relevant to Health Maintenance Results * POC HBA1C (Glycohemoglobin) ([facility] only) (12/06/2024 1:17 PM EDT) Pathologist [facility] POC Hemoglobin A1C (Glycated) 5.5 4.3 - 6.0 % ED [facility] 12/06/2024 1:24 PM EDT [facility] POINT OF CARE TESTING PROGRAM Average Blood Glucose 108 mg/dL ED [facility] 12/06/2024 1:24 PM EDT [facility] POINT OF CARE TESTING PROGRAM Comment: Interpretive Data AVERAGE BLOOD GLUCOSE ASSOCIATED WITH THIS PERCENT GLYCATED HEMOGLOBIN (BASED ON DCCT) Blood 12/06/2024 1:17 PM EDT 12/06/2024 1:24 PM EDT Narrative [facility] POINT OF CARE TESTING PROGRAM - 12/06/2024 [...] [facility] POCT PROGRAM. us Christophe Crowley NP POINT OF CARE TEST ORDERABLES Fi nal Result [facility] POINT OF CARE TESTING PROGRAM [id number], [place] [address] from Last 3 Months or Most Recently Relevant to Health Maintenance Advance Directives For more information, please contact: [phone] * Full Code (Latest Code Status on File) Date Activated Date Inactivated Comments 02/22/2020 5:03 PM 02/24/2020 4:53 PM Care Teams Powerbuilder Relationship Specialty Start Date End Date Aislinn Merlos PA [address] [place] [id number] PCP - General 08/13/21
--- OUTSIDE RECORDS SUMMARY | 2025-06-23 11:47 | XMS_ITS | Patient Health Record ---
Author Organization [facility] are Address [address] [place] [address] Care Team Providers Care Sailing Officer Name Role Phone MRS. Sunni Ramon Primary Care Provider [phone] Benedicto Talley MD Unavailable Unavailable DR. Benedicto Talley Unavailable [phone] Migration, Provider Unavailable Unavailable All Meade Unavailable [phone] Results Component Value Reference Range Notes IADNA SARSCOV2 & INF A&B & R SV MULT AMP PROBE TQ (45138) Reviewed date:09/06/2024 12:00:00 AM Interpretation: Performing Lab: Notes/Report: IADNA SARSCOV2 & INF A&B & RSV MULT AMP PROBE not dete cted NR BLOOD GLUCOSE-HOME MONITOR ( 58526) Reviewed date:10/05/2024 12:00:00 AM Interpretation: Performing Lab: [...] UA - URINE SEDIMENT x NR CALCIFEDIOL (19672) Reviewed date:10/13/2024 12:00:00 AM Interpretation: Performing Lab: Notes/Report: Vitamin D, 25-Hydroxy 42.7 ng/mL 30.0-100.0 Cardiovascular Report Reviewed date:10/13/2024 12:00:00 AM Interpretation: Performing Lab: Notes/Report: Interpretation Note NR PDF . NR CBC, PLATELETS & AUT DIFF (8 0957) Reviewed date:10/13/2024 12:00:00 AM Interpretation: Performing Lab: [...] 11.7-15.4 WBC 8.6 x10E3/uL 3.4-10.8 LIPID PANEL (83142) Reviewed date:10/13/2024 12:00:00 AM Interpretation: Performing Lab: Notes/Report: Cholesterol, Total 200 mg/dL 100-199 HDL Cholesterol 39 mg/dL >39 LDL Chol Calc ([facility]) 141 mg/dL 0-99 Triglycerides 112 mg/dL 0-149 VLDL Cholesterol Ollie 20 mg/dL 5-40 METABOLIC PANEL, COMPREHENSI VE (38338) Reviewed date:10/13/2024 12:00:00 AM Interpretation: Performing Lab: [...] 141 mmol/L 134-144 Microalb/Creat Ratio, Sheng Giraldo (85328) Reviewed date:10/13/2024 12:00:00 AM Interpretation: Performing Lab: [...] for neck tension; Duration: 90 *Reorder from [employer] for eRx and Interaction Alerts* 11/04/2024 Active Ferrous Sulfate 325 (65 Fe)MG Ferrous Sulfate 325 (65 Fe)MG, 1 tablet Tablet daily or every other day # 30, 11/09/2019, Ref. x2. Active Oral daily or every other day; Duration: 30 *Pick strength-form from [employer] for eRX* 11/09/2019 Active cholecalciferol (vitamin D3) 50 mcg(2,000 uni cholecalciferol (vitamin D3) 50 mcg(2,000 uni, 1 (one) Tablet daily # 30, 11/20/2022, No Refill. Active oral daily; Duration: 30 *[facility]* 11/20/2022 Active Vitamin B-12 1000 MCG Tablet Vitamin B-12 1000MCG, 1 (one) Tablet daily # 30, 04/27/2021, No Refill. Active Oral daily; Duration: 30 04/27/2021 Active Ozempic 2 mg/dose(8 mg/3 mL Ozempic( 2 mg/dose(8 mg/3 mL subcutaneous 2 mg one weekly ) Active -Hx Entry subcutaneous one weekly; Duration: 0 *Reorder from [facility] for eRx and Interaction Alerts* 11/04/2024 Active PROzac 20mg PROzac 20mg, 1 Capsule daily # 90, 12/04/2024, No Refill. Active oral daily; Duration: 90 *Reorder from [facility] for eRx and Interaction Alerts* 12/04/2024 Active Nurtec ODT 75mg Nurtec ODT 75mg, 1 (one) Tablet daily at onset of migraine headache # 8, 01/09/2024, Ref. x2. Active oral daily at onset of migraine headache; Duration: 30 *Reorder from [facility] for eRx and Interaction Alerts* 01/09/2024 Active [...] Entry Oral daily; Duration: 30 *[facility] for [facility] and Interaction Alerts* 04/27/2021 [...] cholesterol; Duration: 90 *Reorder from [facility] for eRx and Interaction Alerts* 09/13/2024 Active Ajovy Autoinjector 225mg/1.5 mL Ajovy Autoinjector( 225mg/1.5 mL subcutaneous 1 every 12 weeks ) Active -Hx Entry subcutaneous every 12 weeks; Duration: 0 *Reorder from [employer] for eRx and Interaction Alerts* 11/04/2024 Active PROzac 20 MG Capsule PROzac 20mg, 1 Capsule daily # 90, 12/04/2024, No Refill. Active Oral daily; Duration: 90 12/04/2024 Active Albuterol Sulfate 90mcg/actuat albuterol sulfate 90mcg/actuat, 2 Puff q 4 hours prn wheezing # 1, 01/22/2024, Ref. x2. Active inhalation q 4 hours prn wheezing; Duration: 30 *Pick strength-form from [employer] for eRX* 01/22/2024 Active FreeStyle Philip 3 Sensor - Miscellaneous FreeStyle Philip 3 Sensor( miscellaneous every 14 days ) Active -Hx Entry miscellaneous every 14 days; Duration: 0 11/04/2024 Active Immunizations Vaccine Route Administration [place] 76022 TDAP IM Intramuscular 10/05/2024 Pending ,Immuniz ationName, ' : Tdap (7 years and up) (36496) ,Status,' : Ordered Influenza, unspecified formulation IM Intramuscular 03/10/2024 Administered ,ImmunizationNa me, ' : Influenza, inj, MDCK, preservative free, q.valent (94949) ,Status,' : Complete 52840 Flu Shot IM Intramuscular 03/10/2024 Administered ,I mmunizationName, ' : Influenza, inj, MDCK, preservative free, q.valent (20044) ,Status,' : Complete Social History Social History [...] Problem Viral infection of the digestive tract (015957690) Viral intestinal infection, unspecified (A08.4) Active confirmed This appears viral. Discussed OTC medications for symptomatic relief. Educated patient on viral vs bacterial infections and use of antibiotics. Provided return precautions. Reminded patient of the importance of hygiene to prevent transmission. Please re-check if no improvement in 1 week OSIW. Problem Iron deficiency anemia (55119829) Iron deficiency anemia, unspecified (D50.9) Active confirmed Continue OTC Ferrous Sulfate 325 mg daily. Will check CBC w/ diff and iron studies. Problem Vitamin B>12< deficiency anaemia (48468605) Vitamin B12 deficiency anemia, unspecified (D51.9) Active confirmed Problem Type II diabetes mellitus without complication (665253239) Type 2 diabetes mellitus without complications (E11.9) Active confirmed Managed by endocrinology. A1c controlled at this time. Problem Vitamin A deficiency (07880139) Vitamin A deficiency, unspecified (E50.9) Active confirmed Patient states she has recently been diagnosed with Vitamin A deficiency by her card player and started on OTC supplements about 6 weeks ago. Will check Vitamin A levels. Discussed dangers associated with fat-soluble vitamins and not going over recommended daily amount. Problem Vitamin B deficiency (67451674) Deficiency of other specified B group vitamins (E53.8) Active confirmed Rechecking labs today Problem Vitamin D deficiency (61467749) Vitamin D deficiency, unspecified (E55.9) Active confirmed Labs pending. Will call patient with results and treat as indicated. Continue vitamin Vitamin D3, 2000 units a day. Problem Morbid obesity (disorder) (724789395) Morbid (severe) obesity due to excess calories (E66.01) Active confirmed Encouraged heart healthy diet modifications and increased exercise of moderate intensity 3-4 times per week as tolerated. Reviewed the numerous benefits of reducing weight. Problem Hyperlipidemia (89368829) Hyperlipidemia, unspecified (E78.5) Active confirmed Rechecking lipid panel. Continue atorvastatin 40 mg daily. Encouraged lifestyle modification in diet and exercise regimen to reduce cholesterol. - Continue lowering intake of high-saturated fat in diet. - Goal lipid levels: Total cholesterol: < 170 Triglycerides: < 150 HDL: > 40 LDL: < 70 Problem Bipolar disorder (85006840) Bipolar disorder, unspecified (F31.9) Active confirmed Follow up with her psychiatrist and her therapist. Problem Anxiety disorder (182634612) Anxiety disorder, unspecified (F41.9) Active confirmed Continue Prozac. Patient also has Xanax available as needed. Will have our office reach out to [facility] psychiatry to inquire about follow-up. Will refer elsewhere if needed for psychiatry services. Problem Post-traumatic stress disorder (68066683) Post-traumatic stress disorder, unspecified (F43.10) Active confirmed Patient started on Zoloft 50 mg daily. Psychiatrist commented he may consider adding Minipress in case there is no improvement in nightmares. Continue to monitor. Problem Epilepsy (53078589) Epilepsy, unspecified, not intractable, without status epilepticus (G40.909) Active confirmed Agreed to refill one more time in light of the COVID-19 pandemic, however patient needs to get all future refills of her Ativan from her Neurologist who initially prescribed the medication. Clear per [employer] database. Problem Migraine without aura, not refractory (disorder) (829860375) Migraine, unspecified, not intractable, without status migrainosus [...] Patient given strict return precautions. Problem Insomnia (241835957) Insomnia, unspecified (G47.00) Active confirmed Problem Obstructive sleep apnea syndrome (disorder) (19779208) Obstructive sleep apnea (adult) (pediatric) (G47.33) Active confirmed Patient has still not heard from [facility] to schedule sleep study. Will refer to [place] upon patient request. Problem Carpal tunnel syndrome (77414138) Carpal tunnel syndrome, right upper limb (G56.01) Active confirmed Tendonitis vs CTS. Advised patient she will need to stop crocheting at least for now and will place her in a CTS splint with a thumb stabilizer to help with trigger thumb. Re-check in 2 weeks if no improvement. . Problem Polyneuropathy (76884155) Polyneuropathy, unspecified (G62.9) Active confirmed Problem Benign intracranial hypertension (44006789) Benign intracranial hypertension (G93.2) Active confirmed follow-up with neurology. Problem Compression of brain (22955640) Compression of brain (G93.5) Active confirmed Diagnosed in 2007. Followed by [facility] neurology. Problem Visual disturbance (70726303) Unspecified visual disturbance (H53.9) Active confirmed Called [...] dation. Patient made aware. Problem Otitis media (52823897) Otitis media, unspecified, left ear (H66.92) Active confirmed Starting Cefedinir x 5 days. Recommend OTC Tylenol +/- Motrin for pain and fever control. Return in 2-3 days if no improvement or worsening of pain occurs. Problem Otalgia of right ear (finding) (8224705558) Otalgia, right ear (H92.01) Active confirmed Physical exam unremarkable with no signs of infection. Problem Bilateral otalgia (757138833) Otalgia, bilateral (H92.03) Active confirmed Problem Pain of ear (finding) (746882803) Otalgia, unspecified ear (H92.09) Active confirmed Physical exam unremarkable, with no sign of otitis media or externa. Likely due to seasonal allergies/conge stion causing fluid to build behind TM. Recommended OTC antihistamine. Return as needed for increased pain, fever, or onset of ear drainage. Problem Essential hypertension (07682156) Essential (primary) hypertension (I10) Active confirmed Controlled off of antihypertensiv e at this time. Problem Diastolic heart failure (545071800) Unspecified diastolic (congestive) heart failure (I50.30) Active confirmed Patient reports normal echo by cardiology. No follow up scheduled. Problem Heart failure (58057433) Heart failure, unspecified (I50.9) Active confirmed Stable. Continue current treatment. Follow up with cardiology. Problem Heart disease (26340258) Heart disease, unspecified (I51.9) Active confirmed Echo 12/24/16: quality of study fair, EF 55-60%, nor LV size & fxn, no RWMA. Impaired LV relaxation / grade 1 diastolic dysfxn, trace TR On Lasix. Referring to cardiology. Problem Orthostatic hypotension (22482752) Orthostatic hypotension (I95.1) Active confirmed Orthostatic vitals performed: Laying - Blood pressure 124/74, HR 102 Standing - Blood pressure 118/60, HR 112 After standing for 2 minutes - patient became dizzy and had to sit down. BP 124/70. Findings consistent with orthostatic hypotension. Encouraged patient to drink plenty of fluids, and to avoid standing up too quickly. Problem Acute sinusitis (06280088) Acute sinusitis, unspecified (J01.90) Active confirmed Doxycycline 100 mg 1 p.o. b.i.d. x10 days. Recheck if not better in 3 to 4 days or sooner if worsening. Problem Acute pharyngitis (115359400) Acute pharyngitis, unspecified (J02.9) Active confirmed Rapid strep negative. Problem Acute upper respiratory infection (31964227) Acute upper respiratory infection, unspecified (J06.9) Active confirmed Start daily oral antihistamine and Flonase intranasal therapy for nasal congestion. Also recommend NetiPot sinus rinses, Mucinex for congestion. Recommend throat coat tea, lozenges, Chloraseptic spray for sore throat. If worsening throat pain, swelling in throat, muffling of voice please return to clinic. Problem Acute bronchitis (88011351) Acute bronchitis, unspecified (J20.9) Active confirmed Recheck if not better in 3 to 4 days or sooner if worsening. Problem Chronic sinusitis (37571602) Chronic sinusitis, unspecified (J32.9) Active confirmed Likely viral. Encouraged patient to stay well hydrated and rest as needed. May take benzonatate for cough. Problem Exacerbation of asthma (947054472) Unspecified asthma with (acute) exacerbation (J45.901) Active confirmed Refilling albuterol MDI and starting prednisone. Call 911 for difficulty breathing Problem Uncomplicated asthma (disorder) (590218758) Unspecified asthma, uncomplicated (J45.905) Active confirmed Continue Trelegy daily and albuterol as needed. Sending prescription for spacer chamber. Patient encouraged to increase albuterol inhaler use to every 4-6 hours for the next 2 days and then resume as needed. Problem Gastro-esophageal reflux disease without esophagitis (290448972) Gastro-esophage al reflux disease without esophagitis (K21.9) Active confirmed Avoid NSAIDs. Continue Omeprazole once daily. Patient has known history of reucrrent gastric ulcers secondary to chronic NSAID use. Problem Gastric ulcer (025498312) Gastric ulcer, unspecified as acute or chronic, without hemorrhage or perforation (K25.9) Active confirmed Continue to avoid use of NSAIDs. Repeat EGD in 2020, per GI recommendations . Problem Non-infective enteritis and colitis (998786727) Noninfective gastroenteritis and colitis, unspecified (K52.9) Active confirmed Symptoms likely due to gastroenteritis . VSS, no signs of volume depletion. No fevers, severe pain, bloody/mucoid stools, tolerating fluid PO intake today, and estimated BMs/day < 6. Discussed conservative treatment with symptomatic management, rehydration and bland diet advance as tolerated. Discussed proper hygiene and provided return/ED precautions to patient. Problem Fatty liver (479501030) Fatty (change of) liver, not elsewhere classified [...] alcohol, low saturated fat diet. Problem Urticaria (33143804) Urticaria, unspecified (L50.9) Active confirmed Improving w/ Lyndsey once daily. Problem Osteoarthritis (970649062) Unspecified osteoarthritis, unspecified site (M19.90) Active confirmed Desires to continue use of PRN Naproxen. Will Rx Vimovo for the patient to provide GI protection, however cautioned the patient about regular use of this medication given her hx of gastritis in the past secondary to NSAIDs. Patient agrees with plan. Problem Pain in wrist (70476605) Pain in right wrist (M25.531) Active confirmed Possibly secondary to carpal tunnel syndrome. Recommended patient to wear wrist splint for the next 2 weeks. Try conservative treatment at home including ice/heat, Tylenol as needed for pain. Patient given a written prescription for right wrist splint to worm picker at pharmacy. Problem Pain in wrist (48522690) Pain in left wrist (M25.532) Active confirmed [...] pain persist. Problem Disorder of wrist joint (306912309) Other specified joint disorders, unspecified wrist (M25.839) Active confirmed See above fo r details. Problem Lumbar radiculopathy (198234174) Radiculopathy, lumbar region (M54.16) Active confirmed MRI L-Spine w/o contrast ordered at last visit, awaiting medicaid approval at this time. Continue PT sessions 2-3x/week with [facility]. Has few weeks left remaining. Problem Spasm (14668628) Other muscle spasm (M62.838) Active confirmed Refilling Flexeril. Back pain appears chronic in nature. Recommend heat and ice massage with gentle stretching for back pain. Problem Acquired trigger finger (1927087) Trigger thumb, right thumb (M65.311) Active confirmed [...] would likely be sufficient. Problem Achilles bursitis (364973993) Achilles tendinitis, unspecified leg (M76.60) Active confirmed Follow up with [facility]. Problem Calculus of kidney (19840988) Calculus of kidney (N20.0) Active confirmed Recommend following back up with Urology for further evaluation. Problem Urinary tract infectious disease (disorder) (18609716) Urinary tract infection, site not specified (N39.0) Active confirmed Patient denies symptom improvement on Macrobid, switching to Bactrim DS. Urine culture sent. Increase fluid intake and urine output, holding urine no longer than two hours if possible before voiding. Problem Abscess of vulva (02949219) Abscess of vulva (N76.4) Active confirmed Followed by [facility] - Continue Bactrim DS 1 tablet BID as directed. Improved s/p I&D performed at last visit. Keep scheduled f/u appt with [facility] for next week. Problem Excessive and frequent menstruation (448385326) Excessive and frequent menstruation with regular cycle (N92.0) Active confirmed Patient is trying to concieve. Treating for SHIKHA at this time, likely due to menorrhagia. Problem Irregular menstruation (19359443) Irregular menstruation, unspecified (N92.6) Active confirmed HCG negative. Problem Abnormal uterine bleeding (27546372510550) Abnormal uterine and vaginal bleeding, unspecified (N93.9) Active confirmed Refill of Provera 20 mg TID x 7 days for AUB. Follow up appt scheduled with [facility] in November 2021. Problem Tachycardia (2363667) Tachycardia, unspecified (R00.0) Active confirmed - Follow up with Cardiology as soon as possible. Problem Elevated blood pressure reading without diagnosis of hypertension (640073711) Elevated blood-pressure reading, without diagnosis of hypertension [...] in 1 month. Problem Shortness of breath (316239143) Shortness of breath (R06.02) Active confirmed Duoneb given with marginal improvement in symptoms. Sending patient to ED for PE work-up. She declines EMS but states that she will drive directly to ED. Charge nurse called. Vital signs stable at discharge. Problem Chest pain (74309291) Other chest pain (R07.89) Active confirmed Recommended follow up with [facility]. Problem Chest pain (92244538) Chest pain, unspecified (R07.9) Active confirmed Awaiting referral to Cardiology at this time. Problem Epigastric pain (76094021) Epigastric pain (R10.13) Active confirmed New abdominal pain since starting Ozempic. Will check labs today. Will call patient with results and treat as indicated. Problem Lower abdominal pain (34340322) Lower abdominal pain, unspecified (R10.30) Active confirmed Recommended checking additional labs such as CBC, CMP, but patient denied at this time. If symptoms continue, recommended she follow up for labs. Problem Abdominal pain (29519524) Unspecified abdominal pain (R10.9) Active confirmed Updating labs today. Checking also pancreatic enzymes. Problem Nausea (878831538) Nausea (R11.0) Active confirmed Nausea is associated with Ozempic injections. Resending prescription for Zofran to her pharmacy. Patient encouraged to eat smaller and more frequent meals. Problem Vomiting (155961428) Vomiting, unspecified (R11.10) Active confirmed Patient tried Zofran with no relief. Will start Phenergan for nausea/vomiting . The patient is aware of the sedative effects of this medication and will not drive or drink alcohol while taking it. Problem Dysphagia (62902384) Dysphagia, unspecified (R13.10) Active confirmed Follow-up with GI. Problem Diarrhea (84442901) Diarrhea, unspecified (R19.7) Active confirmed Likely due to recent antibiotic use - Will send stool culture + C. diff EUGENIA. Avoid Immodium at this time as bacterial etiology can not be excluded. Increase PO hydration at home. Will Rx Bentyl for abdominal cramping as needed. Problem Paresthesia (finding) (99042598) Paresthesia of skin (R20.2) Active confirmed Followed by Neurology. Continue Gabapentin 300 mg at bedtime. Problem Abnormal gait (18117950) Unsteadiness on feet (R26.81) Active confirmed Referring for PT. Problem Dysuria (38258269) Dysuria (R30.0) Active confirmed Urinalysi s positive for excess glucose, negative for blood leukoesterase or nitrites. Sending urine sample for culture and sensitivity. Will call patient with results and treat as indicated. Problem Unspecified symptoms and signs involving the genitourinary system (R39.9) Active confirmed Problem Dizziness and giddiness (406942604) Dizziness and giddiness (R42) Active confirmed Patient does have nystagmus and ear fullness. Will try her on meclizine for symptoms of vertigo. Also recommend Zyrtec and Flonase however patient reports that she is unable to tolerate Flonase. Follow through with cardiology referral. Problem Fever (189636687) Fever, unspecified (R50.9) Active confirmed May be related to cellulitis on her right breast, which started approx. 1 week ago. Consider right breast mammogram vs. ULS if no improvement in 2-3 days. Follow up recommended. Problem Malaise (520744283) Other malaise (R53.81) Active confirmed Continue to follow up with PT for strengthening exercises. Problem Fatigue (79357279) Other fatigue (R53.83) Active confirmed Multifactorial in nature given her comorbidities and sedentary lifestyle. Chronic fatigue. Problem Syncope and collapse (461921661) Syncope and collapse (R55) Active confirmed Cardiology referral pending per [facility] records. ED precautions reviewed. Patient encouraged to check blood sugar if she feels presyncope symptoms. Problem Localized enlarged lymph nodes (407136034) Localized enlarged lymph nodes (R59.0) Active confirmed Mammogram in Jul 2020 - BIRADS2. Will perform ULS of the swollen palpable area in the left supraclavicular region for further evaluation. Possibly related to recent COVID-19 vaccine in the L. deltoid from 3 weeks ago. Problem Symptom: generalized (121665927) Other general symptoms and signs (R68.89) Active [...] reduce viral spread. Problem Blood chemistry abnormal (322815383) Other specified abnormal findings of blood chemistry (R79.89) Active confirmed Redrawing liver panel and hepatitis labs today. Suspect Tylenol caused LFT elevation. Patient to avoid Tylenol and EtOH going forward. Will contact patient with results of lab work. Will consider NAFLD workup if LFTs remain elevated despite discontinuing Tylenol use. Problem Glycosuria (02064487) Glycosuria (R81) Active confirmed UA with ++++ glucose, however FSBS 316 in the office. See diabetes note above. Problem Adult health examination (388411641) Encounter for general adult medical examination without abnormal findings (Z00.00) Active confirmed Discussed appropriate health maintenance and prevention topics with patient. Reviewed vaccinations and screening tests. Discussed healthy lifestyle habits to prevent disease and promote wellbeing. Labs pending, will call patient with results and treat as indicated. Re-check for annual PE in 1 year. Problem History and physical examination, follow-up (055034444) Encounter for follow-up examination after completed treatment for conditions other than malignant neoplasm (Z09) Active confirmed see HPI Problem Screening for malignant neoplasm of cervix (778578895) Encounter for screening for malignant neoplasm of cervix (Z12.4) Active confirmed History of multiple abnormal paps. Refer to [place] to updating Pap upon patient request. Problem Vaccination given (558212976) Encounter for immunization (Z23) Active confirmed Tdap given by [facility] in Left deltoid Lot:[id number] EXP: 02/23/27 Tdap updated today. Problem test equivocal (067760808) Encounter for test, result unknown (Z32.00) Active confirmed Urine HCG negative. Will perfrom serum qualatative to confirm (patient requested). Avoid restarting Phentermine until lab confirms not . Patient agrees with the plan. Problem test positive (406090987) Encounter for test, result positive (Z32.01) Active confirmed Will perform serum HCG qual/quant performed, since our office is out of urine HCG test at this time. Starting vitamin once daily. Follow up with SPECIAL FORCES SPECIALIST/OB if confirmed. Problem care (977865401) Encounter for supervision of normal , unspecified, unspecified trimester (Z34.90) Active confirmed Problem Dietary management surveillance (625647357) Dietary counseling and surveillance (Z71.3) Active confirmed [...] can cause defects. . Problem Counseling requested (680179511) Persons encountering health services in other specified circumstances (Z76.89) Active confirmed Although phentermine may be an okay option for her should she continue to lose weight, in light of recent events, advised that we will hold this prescription for now. Encouraged her to continue weight loss and exercise and after her neurology evaluation consider restarting or discussing an alternative option. Problem Health status (525788085) Other specified health status (Z78.9) Active confirmed Followed by Fert[facility] specialist. Currently on Provera but plans to start Clomid later this year. Problem History of urinary stone (404072549) Personal history of urinary calculi (Z87.442) Active [...] Urology on 01/14. Problem Pure hypercholesterole susie (006857325) Pure hypercholestero lemia, unspecified (E78.00) Active confirmed Check lipid and liver panel. Low-cholesterol diet. Problem Muscle pain (17349811) Myalgia, unspecified site (M79.10) Active confirmed Briefly discussed fibromyalgia with patient. Based on brief interview she does appear to meet criteria but no official diagnosis has been made yet. Would like to further discuss this with patient at future visits to see if we can get her off of Flexeril. Will refill Flexeril today. Problem Inflammatory disorder of breast (714113816) Mastitis without abscess (N61.0) Active confirmed Improving. Will order screening mammogram at this time which patient requested today. No prior screening in the past. Maternal grandmother w/ hx of breast cancer. Problem Lump in upper inner quadrant of left breast (finding) (416802585714809) Unspecified lump in the left breast, upper inner quadrant (N63.22) Active confirmed Mammogram ordered today. Problem Prediabetes (211334300) Prediabetes (R73.03) Active confirmed Problem COVID-19 (886513423) COVID-19 (U07.1) Active confirmed PCR testing today is negative. Problem Esophagitis (disorder) (84588960) Esophagitis, unspecified without bleeding (K20.90) Active confirmed Continue Protonix and Carafate. Problem Headache (90434056) Headache, unspecified (R51.9) Active confirmed Uncontrolled. Patient has not seen [facility] who have recommended neurology consult prior to moving forward with treatment modalities. Resending Flexeril since this has helped somewhat, however I would not recommend this as a shelter solution. Problem Encounter for screening for COVID-19 (Z11.52) Active confirmed Negative rapid COVID-19/RSV/Fl u via PCR today. Results reviewed with patient. Problem Exposure to acute respiratory syndrome coronavirus 2 (422020415) Contact with and (suspected) exposure to COVID-19 (Z20.822) Active confirmed Problem Depression (450329434) Depression, unspecified (F32.A) Active confirmed Followed by Psychiatry. Problem Low back pain (230133623) Low back pain, unspecified (M54.50) Active confirmed Urinalysis negative for blood, low suspicion for migrating kidney stones. Seems musculoskeletal given tenderness on exam and exacerbated pain with certain movements. Recommend continuing Tylenol for pain relief. Also recommend stretching exercises. Problem Acute cough (3756901947804260 04) Acute cough (R05.1) Active confirmed PCR negative for COVID, flu, RSV. Given short duration of symptoms, Patient advised to treat symptomatically and follow-up if no improvement over the course of 7 to 10 days. Problem Cough (finding) (99983410) Cough, unspecified (R05.9) Active confirmed Isolate until PCR results become available. This does appear viral. Discussed OTC medications for symptomatic relief. Educated patient on viral vs bacterial infections and use of antibiotics. Return precautions given. Patient advised to speak with a medical provider about next steps if they do test positive. Problem Post-acute COVID-19 (disorder) (5504931621) Post COVID-19 condition, unspecified (U09.9) Active confirmed Symptoms consistent with long covid. Educated that these symptoms could last for weeks-months due to COVID-19. Continue to stay hydrated and drink plenty of fluids, stay active. Can treat symptomatically if needed. Problem Obese class III (finding) (234264068) Obesity, class 3 (E66.813) Active confirmed Encouraged heart healthy diet modifications and increased exercise of moderate intensity 3-4 times per week as tolerated. Reviewed the numerous benefits of reducing weight. Problem Panic disorder (969886810) Panic disorder [episodic paroxysmal anxiety] without agoraphobia [...] she is seeing. She has contacted [facility]. I have advised her that she also has an appointment with her PCP on Friday. Problem Body mass index 40+ - severely obese (622870243) Body mass index (BMI) 45.0-49.9, adult (Z68.42) Active confirmed Problem Body mass index 40+ - severely obese (979659943) Body mass index (BMI) 40.0-44.9, adult (Z68.41) Active confirmed Problem Candidiasis (02516816) Candidiasis, unspecified (B37.9) Inactive confirmed Patient contacts [...] prescription for fluconazole. Problem Hypertensive heart failure (70543236) Hypertensive heart disease with heart failure (I11.0) Inactive confirmed Continue current treatment. Clinically doing well. Problem Seizure (36836171) Unspecified convulsions (R56.9) Inactive confirmed See HPI. Keep scheduled follow up appointment with [facility]. Will allow them to further drive management of this. 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 [address] 08/02/2024 Sunni Ramon [facility] [address] [place] [address] 09/06/2024 Sunni Ramon [facility] [address] [place] [address] 10/02/2024 Benedicto Singheiro [facility] [address] [place] [address] 10/05/2024 Sunni [facility] [address] [place] [address] 10/14/2024 Sunni [facility] [address] [place] [address] [facility] [address] [place] [address] 02/26/2025 Provider Migration [facility] [address] [place] [address] 02/27/2025 Provider Migration [facility] [address] [place] [address] 05/14/2025 Provider Migration [facility] [address] [place] [address] 05/15/2025 Provider Migration Plan Of Treatment No Information Insurance Providers Payer Name Payer Address Payer Phone Subscriber Number Group Number Insured Name Patient Relationship to Insured Coverage Start Date Coverage End Date [facility] [address] [address] [place] [address] [id number] Georgia Swanson Self - patient is the insured 1 Medicaid [address] [address] [place] [address] [id number] Georgia Swanson Self - patient is the [...]
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
--- OUTSIDE RECORDS SUMMARY | 2025-06-23 11:48 | XMS_ITS | Encounter Summary ---
Author Organization [facility] ([facility]a. [facility]) Address [address] [place] [address] Care Team Providers Care Glass Cleaner Name Role Phone Mehnaz Obando NP Primary Care Provider [phone] [place] Joseph Srinivasan Primary Care Provide r Aislinn Merlos Primary Care Provider [phone] Unassigned, Doctor Primary Care Provider Unav ailable Encounter Details Date Type Department Care Team (Late st Contact Info) Description 04/14/2018 Prep for Surgery [facility] - Urology Service [address] [facility] [address] [place] [address] Jefe Veliz MD [address] [place] [address] Social History Tobacco Use Types Packs/Day [...] DM, HLD. Surgical History: Ankle arth roscopy/surgery (50680) , Appendectomy , Caesarean section , Cholecystectomy , Hernia repair , Hysteroscopy dx sep proc (85207) , Kidney stone extraction , Removal of ovarian cyst(s) (58397) , Liver surgery procedure (09278):biopsy . Hospitalization/Major Diagnostic Procedure: Denies Past Hospitalization. [...] Glucose neg Bilirubin neg Ketones neg Specific [place] 1.010 Occult Blood trace- Intact pH 5.5 [...] documented as of this encounter Care Teams Glass Cleaner Relationship Specialty Start Date End Date Mehnaz Obando NP PCP - General Internal Medicine 09/10/17 03/01/19 Joseph Moraes [address] [place] [address] PCP - General Group provider 03/02/19 04/25/19 Aislinn Merlos PA [address] [place] [address] [place] [address] PCP - General Family Medicine 04/26/19 03/10/22 Unassigned, DoctorMD [address] [place] [address] [place] [address] PCP - General Family Medicine 03/11/22 documented [...] prosecute any alcohol or drug abuse patient. [facility]
--- OUTSIDE RECORDS SUMMARY | 2025-06-23 11:48 | XMS_ITS | Patient Health Record ---
Author Organization [facility] Address [address] [place] [address] Care Team Providers Care Staking Technician Name Role Phone Benedicto Talley MD Unavailable Unavailable DR. Benedicto Talley Unavailable [phone] Migration, Provider Unavailable Unavailable Reason For Referral [...] PANIC ATTACHS; Duration: 10 DX: PANIC ATTACkS [place] Controlled Substance Reporting Database reviewed and patient found to be in compliance with prescription. 10/12/2024 Active atorvastatin 40mg atorvastatin 40mg, 1 (one) Tablet at bedtime for high cholesterol # 90, 09/13/2024, Ref. x1. Active oral at bedtime for high cholesterol; Duration: 90 *Reorder from [facility] for eRx and Interaction Alerts* 09/13/2024 [...] every 12 weeks; Duration: 0 *Reorder from [facility] for eRx and Interaction Alerts* 11/04/2024 Active [...] for neck tension; Duration: 90 *Reorder from [facility] for eRx and Interaction Alerts* 11/04/2024 Active Ferrous Sulfate 325 (65 Fe)MG Ferrous Sulfate 325 (65 Fe)MG, 1 tablet Tablet daily or every other day # 30, 11/09/2019, Ref. x2. Active Oral daily or every other day; Duration: 30 *Pick strength-form from [facility] for eRX* 11/09/2019 Active cholecalciferol (vitamin D3) 50 mcg(2,000 uni cholecalciferol (vitamin D3) 50 mcg(2,000 uni, 1 (one) Tablet daily # 30, 11/20/2022, No Refill. Active oral daily; Duration: 30 *Reorder from [facility] for eRx and Interaction Alerts* 11/20/2022 Active Vitamin B-12 1000 MCG Tablet Vitamin B-12 1000MCG, 1 (one) Tablet daily # 30, 04/27/2021, No Refill. Active Oral daily; Duration: 30 04/27/2021 Active Ozempic 2 mg/dose(8 mg/3 mL Ozempic( 2 mg/dose(8 mg/3 mL subcutaneous 2 mg one weekly ) Active -Hx Entry subcutaneous one weekly; Duration: 0 *Reorder from [facility] for eRx and Interaction Alerts* 11/04/2024 Active PROzac 20 MG Capsule PROzac 20mg, 1 Capsule daily # 90, 12/04/2024, No Refill. Active Oral daily; Duration: 90 12/04/2024 Active Nurtec ODT 75mg Nurtec ODT 75mg, 1 (one) Tablet daily at onset of migraine headache # 8, 01/09/2024, Ref. x2. Active oral daily at onset of migraine headache; Duration: 30 *Reorder from [facility] for eRx and Interaction Alerts* 01/09/2024 Active [...] Entry Oral daily; Duration: 30 *Reorder from [facility] for eRx and Interaction Alerts* 04/27/2021 Active Immunizations Vaccine Route [place] [id number] Tdap OTH Other/Miscellaneous 10/05/2024 Pending ,ImmunizationName ,' : Tdap (7 years and up) (94223) ,Status,' : Ordered Source Location: <Undefined> Influenza, unspecified formulation IM Intramuscular 03/10/2024 Administered ,ImmunizationNa me ,' : Influenza, inj, MDCK, preservative free, q.valent (18856) ,Status,' : Complete Social History Social History [...] Problem Viral infection of the digestive tract (826995014) Viral intestinal infection, unspecified (A08.4) Active confirmed This appears viral. Discussed OTC medications for symptomatic relief. Educated patient on viral vs bacterial infections and use of antibiotics. Provided return precautions. Reminded patient of the importance of hygiene to prevent transmission. Please re-check if no improvement in 1 week OSIW. Problem Iron deficiency anemia (79710603) Iron deficiency anemia, unspecified (D50.9) Active confirmed Continue OTC Ferrous Sulfate 325 mg daily. Will check CBC w/ diff and iron studies. Problem Vitamin B>12< deficiency anaemia (94024866) Vitamin B12 deficiency anemia, unspecified (D51.9) Active confirmed Problem Type II diabetes mellitus without complication (600775821) Type 2 diabetes mellitus without complications (E11.9) Active confirmed Managed by endocrinology. A1c controlled at this time. Problem Vitamin A deficiency (46091188) Vitamin A deficiency, unspecified (E50.9) Active confirmed Patient states she has recently been diagnosed with Vitamin A deficiency by her wood flooring specialist and started on OTC supplements about 6 weeks ago. Will check Vitamin A levels. Discussed dangers associated with fat-soluble vitamins and not going over recommended daily amount. Problem Vitamin B deficiency (20741710) Deficiency of other specified B group vitamins (E53.8) Active confirmed Rechecking labs today Problem Vitamin D deficiency (09317336) Vitamin D deficiency, unspecified (E55.9) Active confirmed Labs pending. Will call patient with results and treat as indicated. Continue vitamin Vitamin D3, 2000 units a day. Problem Morbid obesity (disorder) (889049136) Morbid (severe) obesity due to excess calories (E66.01) Active confirmed Encouraged heart healthy diet modifications and increased exercise of moderate intensity 3-4 times per week as tolerated. Reviewed the numerous benefits of reducing weight. Problem Hyperlipidemia (42978059) Hyperlipidemia, unspecified (E78.5) Active confirmed Rechecking lipid panel. Continue atorvastatin 40 mg daily. Encouraged lifestyle modification in diet and exercise regimen to reduce cholesterol. - Continue lowering intake of high-saturated fat in diet. - Goal lipid levels: Total cholesterol: < 170 Triglycerides: < 150 HDL: > 40 LDL: < 70 Problem Bipolar disorder (20173152) Bipolar disorder, unspecified (F31.9) Active confirmed Follow up with her psychiatrist and her therapist. Problem Anxiety disorder (722944774) Anxiety disorder, unspecified (F41.9) Active confirmed Continue Prozac. Patient also has Xanax available as needed. Will have our office reach out to [facility] psychiatry to inquire about follow-up. Will refer elsewhere if needed for psychiatry services. Problem Post-traumatic stress disorder (97966549) Post-traumatic stress disorder, unspecified (F43.10) Active confirmed Patient started on Zoloft 50 mg daily. Psychiatrist commented he may consider adding Minipress in case there is no improvement in nightmares. Continue to monitor. Problem Epilepsy (48883089) Epilepsy, unspecified, not intractable, without status epilepticus (G40.909) Active confirmed Agreed to refill one more time in light of the COVID-19 pandemic, however patient needs to get all future refills of her Ativan from her Neurologist who initially prescribed the medication. Clear per [employer] database. Problem Migraine without aura, not refractory (disorder) (958807757) Migraine, unspecified, not intractable, without status migrainosus [...] Patient given strict return precautions. Problem Insomnia (720485471) Insomnia, unspecified (G47.00) Active confirmed Problem Obstructive sleep apnea syndrome (disorder) (61500780) Obstructive sleep apnea (adult) (pediatric) (G47.33) Active confirmed Patient has still not heard from [facility] to schedule sleep study. Will refer to [facility] upon patient request. Problem Carpal tunnel syndrome (52412601) Carpal tunnel syndrome, right upper limb (G56.01) Active confirmed Tendonitis vs CTS. Advised patient she will need to stop crocheting at least for now and will place her in a CTS splint with a thumb stabilizer to help with trigger thumb. Re-check in 2 weeks if no improvement. . Problem Polyneuropathy (32616616) Polyneuropathy, unspecified (G62.9) Active confirmed Problem Benign intracranial hypertension (94416930) Benign intracranial hypertension (G93.2) Active confirmed follow-up with neurology. Problem Compression of brain (03844093) Compression of brain (G93.5) Active confirmed Diagnosed in 2007. Followed by [facility] neurology. Problem Visual disturbance (98641646) Unspecified visual disturbance (H53.9) Active confirmed Called [...] dation. Patient made aware. Problem Otitis media (59956349) Otitis media, unspecified, left ear (H66.92) Active confirmed Starting Cefedinir x 5 days. Recommend OTC Tylenol +/- Motrin for pain and fever control. Return in 2-3 days if no improvement or worsening of pain occurs. Problem Otalgia of right ear (finding) (7532982470) Otalgia, right ear (H92.01) Active confirmed Physical exam unremarkable with no signs of infection. Problem Bilateral otalgia (081995798) Otalgia, bilateral (H92.03) Active confirmed Problem Pain of ear (finding) (239874388) Otalgia, unspecified ear (H92.09) Active confirmed Physical exam unremarkable, with no sign of otitis media or externa. Likely due to seasonal allergies/conge stion causing fluid to build behind TM. Recommended OTC antihistamine. Return as needed for increased pain, fever, or onset of ear drainage. Problem Essential hypertension (33751723) Essential (primary) hypertension (I10) Active confirmed Controlled off of antihypertensiv e at this time. Problem Diastolic heart failure (856291888) Unspecified diastolic (congestive) heart failure (I50.30) Active confirmed Patient reports normal echo by cardiology. No follow up scheduled. Problem Heart failure (06201292) Heart failure, unspecified (I50.9) Active confirmed Stable. Continue current treatment. Follow up with cardiology. Problem Heart disease (23326370) Heart disease, unspecified (I51.9) Active confirmed Echo 12/24/16: quality of study fair, EF 55-60%, nor LV size & fxn, no RWMA. Impaired LV relaxation / grade 1 diastolic dysfxn, trace TR On Lasix. Referring to cardiology. Problem Orthostatic hypotension (32509124) Orthostatic hypotension (I95.1) Active confirmed Orthostatic vitals performed: Laying - Blood pressure 124/74, HR 102 Standing - Blood pressure 118/60, HR 112 After standing for 2 minutes - patient became dizzy and had to sit down. BP 124/70. Findings consistent with orthostatic hypotension. Encouraged patient to drink plenty of fluids, and to avoid standing up too quickly. Problem Acute sinusitis (57060042) Acute sinusitis, unspecified (J01.90) Active confirmed Doxycycline 100 mg 1 p.o. b.i.d. x10 days. Recheck if not better in 3 to 4 days or sooner if worsening. Problem Acute pharyngitis (414917470) Acute pharyngitis, unspecified (J02.9) Active confirmed Rapid strep negative. Problem Acute upper respiratory infection (07855020) Acute upper respiratory infection, unspecified (J06.9) Active confirmed Start daily oral antihistamine and Flonase intranasal therapy for nasal congestion. Also recommend NetiPot sinus rinses, Mucinex for congestion. Recommend throat coat tea, lozenges, Chloraseptic spray for sore throat. If worsening throat pain, swelling in throat, muffling of voice please return to clinic. Problem Acute bronchitis (71811902) Acute bronchitis, unspecified (J20.9) Active confirmed Recheck if not better in 3 to 4 days or sooner if worsening. Problem Chronic sinusitis (72568621) Chronic sinusitis, unspecified (J32.9) Active confirmed Likely viral. Encouraged patient to stay well hydrated and rest as needed. May take benzonatate for cough. Problem Exacerbation of asthma (159004326) Unspecified asthma with (acute) exacerbation (J45.901) Active confirmed Refilling albuterol MDI and starting prednisone. Call 911 for difficulty breathing Problem Uncomplicated asthma (disorder) (526742596) Unspecified asthma, uncomplicated (J45.909) Active confirmed Continue Trelegy daily and albuterol as needed. Sending prescription for spacer chamber. Patient encouraged to increase albuterol inhaler use to every 4-6 hours for the next 2 days and then resume as needed. Problem Gastro-esophageal reflux disease without esophagitis (243768277) Gastro-esophage al reflux disease without esophagitis (K21.9) Active confirmed Avoid NSAIDs. Continue Omeprazole once daily. Patient has known history of reucrrent gastric ulcers secondary to chronic NSAID use. Problem Gastric ulcer (798887761) Gastric ulcer, unspecified as acute or chronic, without hemorrhage or perforation (K25.9) Active confirmed Continue to avoid use of NSAIDs. Repeat EGD in 2020, per GI recommendations . Problem Non-infective enteritis and colitis (665221440) Noninfective gastroenteritis and colitis, unspecified (K52.9) Active confirmed Symptoms likely due to gastroenteritis . VSS, no signs of volume depletion. No fevers, severe pain, bloody/mucoid stools, tolerating fluid PO intake today, and estimated BMs/day < 6. Discussed conservative treatment with symptomatic management, rehydration and bland diet advance as tolerated. Discussed proper hygiene and provided return/ED precautions to patient. Problem Fatty liver (806118884) Fatty (change of) liver, not elsewhere classified [...] alcohol, low saturated fat diet. Problem Urticaria (74958168) Urticaria, unspecified (L50.9) Active confirmed Improving w/ Lyndsey once daily. Problem Osteoarthritis (161112320) Unspecified osteoarthritis, unspecified site (M19.90) Active confirmed Desires to continue use of PRN Naproxen. Will Rx Vimovo for the patient to provide GI protection, however cautioned the patient about regular use of this medication given her hx of gastritis in the past secondary to NSAIDs. Patient agrees with plan. Problem Pain in wrist (22799919) Pain in right wrist (M25.531) Active confirmed Possibly secondary to carpal tunnel syndrome. Recommended patient to wear wrist splint for the next 2 weeks. Try conservative treatment at home including ice/heat, Tylenol as needed for pain. Patient given a written prescription for right wrist splint to merchandise pickup/receiving associate at pharmacy. Problem Pain in wrist (52289594) Pain in left wrist (M25.532) Active confirmed [...] pain persist. Problem Disorder of wrist joint (570035553) Other specified joint disorders, unspecified wrist (M25.839) Active confirmed See above fo r details. Problem Lumbar radiculopathy (134762298) Radiculopathy, lumbar region (M54.16) Active confirmed MRI L-Spine w/o contrast ordered at last visit, awaiting medicaid approval at this time. Continue PT sessions 2-3x/week with [facility]. Has few weeks left remaining. Problem Spasm (85465949) Other muscle spasm (M62.838) Active confirmed Refilling Flexeril. Back pain appears chronic in nature. Recommend heat and ice massage with gentle stretching for back pain. Problem Acquired trigger finger (2899692) Trigger thumb, right thumb (M65.311) Active confirmed [...] would likely be sufficient. Problem Achilles bursitis (490367017) Achilles tendinitis, unspecified leg (M76.60) Active confirmed Follow up with [facility]. Problem Calculus of kidney (82203579) Calculus of kidney (N20.0) Active confirmed Recommend following back up with Urology for further evaluation. Problem Urinary tract infectious disease (disorder) (64251248) Urinary tract infection, site not specified (N39.0) Active confirmed Patient denies symptom improvement on Macrobid, switching to Bactrim DS. Urine culture sent. Increase fluid intake and urine output, holding urine no longer than two hours if possible before voiding. Problem Abscess of vulva (60160343) Abscess of vulva (N76.4) Active confirmed Followed by [facility] - Continue Bactrim DS 1 tablet BID as directed. Improved s/p I&D performed at last visit. Keep scheduled f/u appt with [facility]ION[facility] for next week. Problem Excessive and frequent menstruation (913102310) Excessive and frequent menstruation with regular cycle (N92.0) Active confirmed Patient is trying to concieve. Treating for SHIKHA at this time, likely due to menorrhagia. Problem Irregular menstruation (92192732) Irregular menstruation, unspecified (N92.6) Active confirmed HCG negative. Problem Abnormal uterine bleeding (74555763116518) Abnormal uterine and vaginal bleeding, unspecified (N93.9) Active confirmed Refill of Provera 20 mg TID x 7 days for AUB. Follow up appt scheduled with [facility]RAN[facility]USION[facility] in November 2021. Problem Tachycardia (5367241) Tachycardia, unspecified (R00.0) Active confirmed - Follow up with Cardiology as soon as possible. Problem Elevated blood pressure reading without diagnosis of hypertension (103600810) Elevated blood-pressure reading, without diagnosis of hypertension [...] in 1 month. Problem Shortness of breath (983916664) Shortness of breath (R06.02) Active confirmed Duoneb given with marginal improvement in symptoms. Sending patient to ED for PE work-up. She declines EMS but states that she will drive directly to ED. Charge nurse called. Vital signs stable at discharge. Problem Chest pain (73193192) Other chest pain (R07.89) Active confirmed Recommended follow up with [facility]. Problem Chest pain (38849179) Chest pain, unspecified (R07.9) Active confirmed Awaiting referral to Cardiology at this time. Problem Epigastric pain (27687341) Epigastric pain (R10.13) Active confirmed New abdominal pain since starting Ozempic. Will check labs today. Will call patient with results and treat as indicated. Problem Lower abdominal pain (03791827) Lower abdominal pain, unspecified (R10.30) Active confirmed Recommended checking additional labs such as CBC, CMP, but patient denied at this time. If symptoms continue, recommended she follow up for labs. Problem Abdominal pain (39585019) Unspecified abdominal pain (R10.9) Active confirmed Updating labs today. Checking also pancreatic enzymes. Problem Nausea (446928795) Nausea (R11.0) Active confirmed Nausea is associated with Ozempic injections. Resending prescription for Zofran to her pharmacy. Patient encouraged to eat smaller and more frequent meals. Problem Vomiting (852479523) Vomiting, unspecified (R11.10) Active confirmed Patient tried Zofran with no relief. Will start Phenergan for nausea/vomiting . The patient is aware of the sedative effects of this medication and will not drive or drink alcohol while taking it. Problem Dysphagia (08294853) Dysphagia, unspecified (R13.10) Active confirmed Follow-up with GI. Problem Diarrhea (01653726) Diarrhea, unspecified (R19.7) Active confirmed Likely due to recent antibiotic use - Will send stool culture + C. diff EUGENIA. Avoid Immodium at this time as bacterial etiology can not be excluded. Increase PO hydration at home. Will Rx Bentyl for abdominal cramping as needed. Problem Paresthesia (finding) (36046039) Paresthesia of skin (R20.2) Active confirmed Followed by Neurology. Continue Gabapentin 300 mg at bedtime. Problem Abnormal gait (68601933) Unsteadiness on feet (R26.81) Active confirmed Referring for PT. Problem Dysuria (57027696) Dysuria (R30.0) Active confirmed Urinalysi s positive for excess glucose, negative for blood leukoesterase or nitrites. Sending urine sample for culture and sensitivity. Will call patient with results and treat as indicated. Problem Unspecified symptoms and signs involving the genitourinary system (R39.9) Active confirmed Problem Dizziness and giddiness (532808737) Dizziness and giddiness (R42) Active confirmed Patient does have nystagmus and ear fullness. Will try her on meclizine for symptoms of vertigo. Also recommend Zyrtec and Flonase however patient reports that she is unable to tolerate Flonase. Follow through with cardiology referral. Problem Fever (355353439) Fever, unspecified (R50.9) Active confirmed May be related to cellulitis on her right breast, which started approx. 1 week ago. Consider right breast mammogram vs. ULS if no improvement in 2-3 days. Follow up recommended. Problem Malaise (558293926) Other malaise (R53.81) Active confirmed Continue to follow up with PT for strengthening exercises. Problem Fatigue (06507807) Other fatigue (R53.83) Active confirmed Multifactorial in nature given her comorbidities and sedentary lifestyle. Chronic fatigue. Problem Syncope and collapse (579012660) Syncope and collapse (R55) Active confirmed Cardiology referral pending per [facility] records. ED precautions reviewed. Patient encouraged to check blood sugar if she feels presyncope symptoms. Problem Localized enlarged lymph nodes (105258137) Localized enlarged lymph nodes (R59.0) Active confirmed Mammogram in Jul 2020 - BIRADS2. Will perform ULS of the swollen palpable area in the left supraclavicular region for further evaluation. Possibly related to recent COVID-19 vaccine in the L. deltoid from 3 weeks ago. Problem Symptom: generalized (520225244) Other general symptoms and signs (R68.89) Active [...] reduce viral spread. Problem Blood chemistry abnormal (997934152) Other specified abnormal findings of blood chemistry (R79.89) Active confirmed Redrawing liver panel and hepatitis labs today. Suspect Tylenol caused LFT elevation. Patient to avoid Tylenol and EtOH going forward. Will contact patient with results of lab work. Will consider NAFLD workup if LFTs remain elevated despite discontinuing Tylenol use. Problem Glycosuria (62717904) Glycosuria (R81) Active confirmed UA with ++++ glucose, however FSBS 316 in the office. See diabetes note above. Problem Adult health examination (704569920) Encounter for general adult medical examination without abnormal findings (Z00.00) Active confirmed Discussed appropriate health maintenance and prevention topics with patient. Reviewed vaccinations and screening tests. Discussed healthy lifestyle habits to prevent disease and promote wellbeing. Labs pending, will call patient with results and treat as indicated. Re-check for annual PE in 1 year. Problem History and physical examination, follow-up (041245034) Encounter for follow-up examination after completed treatment for conditions other than malignant neoplasm (Z09) Active confirmed see HPI Problem Screening for malignant neoplasm of cervix (499753296) Encounter for screening for malignant neoplasm of cervix (Z12.4) Active confirmed History of multiple abnormal paps. Refer to [facility] to updating Pap upon patient request. Problem Vaccination given (596487878) Encounter for immunization (Z23) Active confirmed Tdap given by [facility] in Left deltoid Lot:[id number] EXP: 02/23/27 Tdap updated today. Problem test equivocal (946087379) Encounter for test, result unknown (Z32.00) Active confirmed Urine HCG negative. Will perfrom serum qualatative to confirm (patient requested). Avoid restarting Phentermine until lab confirms not . Patient agrees with the plan. Problem test positive (706655519) Encounter for test, result positive (Z32.01) Active confirmed Will perform serum HCG qual/quant performed, since our office is out of urine HCG test at this time. Starting vitamin once daily. Follow up with [facility]ION[facility]/OB if confirmed. Problem care (846851201) Encounter for supervision of normal , unspecified, unspecified trimester (Z34.90) Active confirmed Problem Dietary management surveillance (224123162) Dietary counseling and surveillance (Z71.3) Active confirmed [...] can cause defects. . Problem Counseling requested (870353362) Persons encountering health services in other specified circumstances (Z76.89) Active confirmed Although phentermine may be an okay option for her should she continue to lose weight, in light of recent events, advised that we will hold this prescription for now. Encouraged her to continue weight loss and exercise and after her neurology evaluation consider restarting or discussing an alternative option. Problem Health status (936270141) Other specified health status (Z78.9) Active confirmed Followed by [facility] specialist. Currently on Provera but plans to start Clomid later this year. Problem History of urinary stone (225841842) Personal history of urinary calculi (Z87.442) Active [...] Urology on 01/14. Problem Pure hypercholesterole susie (114552009) Pure hypercholestero lemia, unspecified (E78.00) Active confirmed Check lipid and liver panel. Low-cholesterol diet. Problem Muscle pain (89112314) Myalgia, unspecified site (M79.10) Active confirmed Briefly discussed fibromyalgia with patient. Based on brief interview she does appear to meet criteria but no official diagnosis has been made yet. Would like to further discuss this with patient at future visits to see if we can get her off of Flexeril. Will refill Flexeril today. Problem Inflammatory disorder of breast (123800721) Mastitis without abscess (N61.0) Active confirmed Improving. Will order screening mammogram at this time which patient requested today. No prior screening in the past. Maternal grandmother w/ hx of breast cancer. Problem Lump in upper inner quadrant of left breast (finding) (693825505813176) Unspecified lump in the left breast, upper inner quadrant (N63.22) Active confirmed Mammogram ordered today. Problem Prediabetes (062572638) Prediabetes (R73.03) Active confirmed Problem COVID-19 (950195284) COVID-19 (U07.1) Active confirmed PCR testing today is negative. Problem Esophagitis (disorder) (26709668) Esophagitis, unspecified without bleeding (K20.90) Active confirmed Continue Protonix and Carafate. Problem Headache (65712505) Headache, unspecified (R51.9) Active confirmed Uncontrolled. Patient has not seen [facility] who have recommended neurology consult prior to moving forward with treatment modalities. Resending Flexeril since this has helped somewhat, however I would not recommend this as a medical terminologist solution. Problem Encounter for screening for COVID-19 (Z11.52) Active confirmed Negative rapid COVID-19/RSV/Fl u via PCR today. Results reviewed with patient. Problem Exposure to acute respiratory syndrome coronavirus 2 (179623997) Contact with and (suspected) exposure to COVID-19 (Z20.822) Active confirmed Problem Depression (022752900) Depression, unspecified (F32.A) Active confirmed Followed by Psychiatry. Problem Low back pain (875249599) Low back pain, unspecified (M54.50) Active confirmed Urinalysis negative for blood, low suspicion for migrating kidney stones. Seems musculoskeletal given tenderness on exam and exacerbated pain with certain movements. Recommend continuing Tylenol for pain relief. Also recommend stretching exercises. Problem Acute cough (6522516355584838 04) Acute cough (R05.1) Active confirmed PCR negative for COVID, flu, RSV. Given short duration of symptoms, Patient advised to treat symptomatically and follow-up if no improvement over the course of 7 to 10 days. Problem Cough (finding) (73833852) Cough, unspecified (R05.9) Active confirmed Isolate until PCR results become available. This does appear viral. Discussed OTC medications for symptomatic relief. Educated patient on viral vs bacterial infections and use of antibiotics. Return precautions given. Patient advised to speak with a medical provider about next steps if they do test positive. Problem Post-acute COVID-19 (disorder) (1587721581) Post COVID-19 condition, unspecified (U09.9) Active confirmed Symptoms consistent with long covid. Educated that these symptoms could last for weeks-months due to COVID-19. Continue to stay hydrated and drink plenty of fluids, stay active. Can treat symptomatically if needed. Problem Obese class III (finding) (995449541) Obesity, class 3 (E66.813) Active confirmed Encouraged heart healthy diet modifications and increased exercise of moderate intensity 3-4 times per week as tolerated. Reviewed the numerous benefits of reducing weight. Problem Body mass index 40+ - severely obese (759047026) Body mass index (BMI) 40.0-44.9, adult (Z68.41) Active confirmed Problem Body mass index 40+ - severely obese (180560639) Body mass index (BMI) 45.0-49.9, adult (Z68.42) Active confirmed Problem Panic disorder (000581416) Panic disorder [episodic paroxysmal anxiety] without agoraphobia [...] that she is seeing. She has contacted [employer]. I have advised her that she also has an appointment with her PCP on Friday. Problem Candidiasis (12598458) Candidiasis, unspecified (B37.9) Inactive confirmed Patient contacts [...] prescription for fluconazole. Problem Hypertensive heart failure (56493738) Hypertensive heart disease with heart failure (I11.0) Inactive confirmed Continue current treatment. Clinically doing well. Problem Seizure (17667761) Unspecified convulsions (R56.9) Inactive confirmed See HPI. Keep scheduled follow up appointment with [facility]. Will allow them to further drive management of this. 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) Inactive confirmed Vital Signs Heart Rate 90 /min 11/04/2024 Temperature 98.40 degrees Fahrenheit 11/04/2024 Height-cm 162.56 cm 11/04/2024 Oximetry 97 % 11/04/2024 Blood pressure diastolic 84 mm Hg 11/04/2024 Weight-kg 108.41 kg 11/04/2024 Height 64.00 in 11/04/2024 Blood pressure systolic 122 mm Hg 11/04/2024 Weight 239.0000 lbs 11/04/2024 BMI 41.02 kg/m2 11/04/2024 Encounters Encounter Location Date Provider Diagnosis [facility] [address] [place] [address] 08/02/2024 Provider Migration [facility] [address] [place] [address] 09/06/[address] [facility] [address] [place] [address] 10/02/2024 Benedicto Talley [facility] [address] [place] [address] 10/05/2024 Provider Migration [facility] [address] [place] [address] 10/14/2024 Provider Migration [facility] [address] [place] [address] 11/04/2024 Provider Migration [facility] [address] [place] [address] 03/05/2025 Provider Migration [facility] [address] [place] [address] 03/06/2025 Provider Migration Plan Of Treatment No Information Insurance Providers Payer Name Payer Address Payer Phone Subscriber Number Group Number Insured Name Patient Relationship to Insured Coverage Start Date Coverage End Date [employer] [address] [address] [place] [address] [id number] Georgia Swanson Self - patient is the insured 1 Medicaid [address] [address] [place] [address] [id number] Georgia Swanson Self - patient is the [...]
--- OUTSIDE RECORDS SUMMARY | 2025-06-23 11:48 | XMS_ITS | Encounter Summary ---
Author Organization [facility] ([facility]) Address [address] [place] [address] Care Team Providers Care Auxiliary Powerplant Operator Name Role Phone Unassigned, Doctor Primary Care Provider Unav ailable Encounter Details Date Type Department Care Team (Late st Contact Info) Description 05/21/2024 Prep for Surgery [facility]ics [facility] [address] [facility] [address] [place], [place] [id number] Maddi Villa PA-C [address] [place], [place] [id number] Social History Tobacco Use Types Packs/Day Years [...] documented as of this encounter Care Teams Auxiliary Powerplant Operator Relationship Specialty Start Date End Date Unassigned, [...] prosecute any alcohol or drug abuse patient. [facility] [employer] (a.k[facility]a. [facility])
--- OUTSIDE RECORDS SUMMARY | 2025-06-23 11:48 | XMS_ITS | Encounter Summary ---
Author Organization [employer] ([facility] [employer]) Address [address] [place] [address] Care Team Providers Care Supervisor [employer] Production Name Role Phone Naila Vallejo MD Primary Care Provider + Unassigned, Doctor RAMIREZ Primary Care Provider Unav ailable Mehnaz Obando NP Primary Care Provider [phone] [place] Joseph Srinivasan Primary Care Provide r Aislinn Merlos Primary Care Provider [phone] Unassigned, Doctor RAMIREZ Primary Care Provider Unav ailable Reason for Visit * Reason Comments Refill Request Encounter Details Date Type Department Care Team (Late st Contact Info) Description 04/27/2016 Refill [facility] [address] [place], [place] [phone] Antoine Briceno MD [address] [place] [address] Refill Request Social History Tobacco Use Types [...] documented as of this encounter Care Teams Supervisor [employer] Production Relationship Specialty Start Date End Date Naila Vallejo MD PCP - General Family Medicine 09/20/13 04/01/17 Unassigned, MD Daniella PCP - General 04/02/17 09/09/17 Mehnaz Obando NP PCP - General Internal Medicine 09/10/17 03/01/19 Joseph Moraes [address] [place] [address] PCP - General Group provider 03/02/19 04/25/19 Aislinn Merlos PA [address] [place] [address] [place] [address] PCP - General Family Medicine [...] alcohol or drug abuse patient. [facility] [employer] ([facility]a. [facility])
--- OUTSIDE RECORDS SUMMARY | 2025-06-23 11:48 | XMS_ITS | Encounter Summary ---
Author Organization [facility] Address [address] [place] [address] Care Team Providers Care Wire Tester Name Role Phone Aislinn Merlos Primary Care Provider [phone] Reason for Visit * Reason Onset Date Comments Medication Prior Authorization 06/16/2025 M ounjaro 7.5mg Encounter Details Date Type Department Care Team (Late st Contact Info) Description 06/16/2025 Documentation [facility] [address] [facility] [address] [place] [address] Brenda Padilla Medication Prior Authorization (Mounjaro 7.5mg) Social History Tobacco Use Types Packs/Day Years Used Date Smoking Tobacco: Never Smokeless Tobacco: Never Alcohol Use Standard Drinks/Week Comments Not Currently 0 (1 standard drink = 0.6 oz pur e alcohol) [facility] Utilities Answer Date Recorded In the past 12 months has e electric, gas, oil, or water [employer] threatened to shut off services in your home? Yes 05/31/2024 Overall Financial Resource Strain (CARDIA) Answe r Date Recorded How hard is it for you to pa y for the very basics like food, housing, medical care, and heating? Somewhat hard 05/31/2024 PHQ-2 Answer Date Recorded Patient Health Questionnaire-2 Score 6 05/31/2024 [facility] [employer]at ional [facility] - Occupational Stress [...] any time in the past 12 m [facility], were you homeless or living in a chcf (including now)? No 05/31/2024 Interpersonal Safety Answer [...] Info) Description 10/25/2025 11:00 AM EDT Telemedicine [facility] [address] [place] [address] Christophe Crowley NP [address] [place] [address] Follow-up disposition: Return in about 6 months (around 10/25/2025) for carissa Seaed visit, Tuesdays. documented as of this encounter Visit Diagnoses Not on filedocumented in this encounter Care Teams Wire Tester Relationship Specialty Start Date End Date Aislinn Merlos PA [address] [place] [address] PCP - General 08/13/21 documented as of this encounter
--- OUTSIDE RECORDS SUMMARY | 2025-06-23 11:48 | XMS_ITS | Encounter Summary ---
Author Organization [employer] ([facility] [employer]) Address [address] [place] [address] Care Team Providers Care Herb Counselor Name Role Phone Naila Vallejo MD Primary Care Provider + Unassigned, Doctor RAMIREZ Primary Care Provider Unav ailable Mehnaz Obando NP Primary Care Provider [phone] [place] Joseph Srinivasan Primary Care Provide r Aislinn Merlos Primary Care Provider [phone] Unassigned, Doctor RAMIREZ Primary Care Provider Unav ailable Reason for Visit * Reason Comments Refill Request Encounter Details Date Type Department Care Team (Late st Contact Info) Description 03/28/2016 Refill [facility] [address] [place], [place] [phone] Antoine Briceno MD [address] [place] [address] Refill Request Social History Tobacco Use Types [...] documented as of this encounter Care Teams Herb Counselor Relationship Specialty Start Date End Date Naila Vallejo MD PCP - General Family Medicine 09/20/13 04/01/17 Unassigned, MD Daniella PCP - General 04/02/17 09/09/17 Mehnaz Obando NP PCP - General Internal Medicine 09/10/17 03/01/19 Joseph Moraes [address] [place] [address] PCP - General Group provider 03/02/19 04/25/19 Aislinn Merlos PA [address] [place] [address] [place] [address] PCP - General Family Medicine [...] prosecute any alcohol or drug abuse patient. [facility] [employer] ([facility]a. [facility])
--- OUTSIDE RECORDS SUMMARY | 2025-06-23 11:49 | XMS_ITS | Encounter Summary ---
Author Organization [employer] ([facility] [employer]) Address [address] [place] [address] Care Team Providers Care Air Hammer Operator Name Role Phone Naila Vallejo MD Primary Care Provider + Unassigned, Doctor RAMIREZ Primary Care Provider Unav ailable Mehnaz Obando NP Primary Care Provider [phone] [place] Joseph Srinivasan Primary Care Provide r Aislinn Merlos Primary Care Provider Unassigned, Doctor RAMIREZ Primary Care Provider Unav ailable Reason for Visit * Reason Comments Refill Request Encounter Details Date Type Department Care Team (Late st Contact Info) Description 09/17/2015 Refill [facility] Family Medicine [address] [id number] Naila Vallejo MD [address] [place] [address] Refill Request Social History Tobacco [...] documented as of this encounter Care Teams Air Hammer Operator Relationship Specialty Start Date End Date Naila Vallejo MD PCP - General Family Medicine 09/20/13 04/01/17 Unassigned, MD Daniella PCP - General 04/02/17 09/09/17 Mehnaz Obando NP PCP - General Internal Medicine 09/10/17 03/01/19 Joseph Moraes [address] [place] [address] PCP - General Group provider 03/02/19 04/25/19 Aislinn Merlos PA [address] [place] [address] [place] [address] PCP - General Family Medicine [...] abuse patient. [facility] [employer] ([facility])
--- OUTSIDE RECORDS SUMMARY | 2025-06-23 11:49 | XMS_ITS | Encounter Summary ---
Author Organization [employer] ([facility] [employer]) Address [address] [place] [address] Care Team Providers Care Rn Birthing Name Role Phone Aislinn Merlos Primary Care Provider [phone] Unassigned, Doctor Primary Care Provider Unav ailable Encounter Details Date Type Department Care Team (Late st Contact Info) Description 11/25/2021 Telemedicine [facility] [address] [place] [address] Nolberto Crystal AttendingMD [address] [place] [address] Social History Tobacco Use Types Packs/Day Years [...] Summary Report for Virtual Visit using the [employer] platform, electronically signed on Date [id number] with [...] (Self Reported) Prescription: diazePAM (Self Reported) Prescription: rsefnfmgrc-zbhsecljnznrj-xfhw (Self Reported) Prescription: cyanocobalamin 500 mcg Tab [...] (Self Reported) Prescription: esomeprazole (Self Reported) Prescription: [place] 5-325 mg Tab (Self Reported) Prescription: enoxaparin (Self Reported) Prescription: dextrose 50% in water (Self Reported) Prescription: diazePAM (Self Reported) Prescription: SYMBICORT INHL (Self Reported) Prescription: vilggbkzht-pxlktucnndgzt-bazh (Self Reported) Prescription: sodium chloride (Self Reported) Prescription: oxyCODONE-acetaminophen (Self Reported) Prescription: dextrose 50% in water (Self Reported) Prescription: gchvbnkpud-vfuskpqwlwyns-jzcq 50-325-40 mg Tab (Self Reported) Prescription: oxyCODONE-acetaminophen [...] (Self Reported) Prescription: Discharge Equipment: Insulin Pen Udall (Self Reported) Prescription: oxyCODONE-acetaminophen (Self Reported) Prescription: [...] (Self Reported) Prescription: Discharge Equipment: Insulin Pen [place]dall (Self Reported) Prescription: morphine (Self Reported) Prescription: [...] cyanocobalamin 500 mcg Tab (Self Reported) Prescription: BGWKmkjujueqg-vzubwtgnjxb-tludgopq-scopoloamine (Self Reported) Prescription: fentaNYL (Self Reported) Prescription: [...] traMADoL-acetaminophen 37.5-325 mg Tab (Self Reported) Prescription: wdbvzgptlw-urrkuneszfxhs-htmb (Self Reported) Prescription: oxyCODONE-acetaminophen (Self Reported) Prescription: [...] 5-325 MG ORAL TAB (Self Reported) Prescription: PJEYTZGIEV-QZHVGTDVAAWMB-HHIQ 50-325-40 MG ORAL TAB (Self Reported) Prescription: EXENATIDE 5 MCG/0.02 ML SUBQ PNIJ (Self Reported) Prescription: ESCHIVVCZS-EVCRJMXNCBKCL-CZBR 50-325-40 MG ORAL TAB (Self Reported) Prescription: [...] % IV BOLUS (Self Reported) Prescription: POTASSIUM ASNNVDW-U5-2.45%NACL 20 MEQ/L IV SOLP (Self Reported) Prescription: [...] 160-4.5 MCG/ACTUATION INHL HFAA (Self Reported) Prescription: ACZEZBLUXB-QXFTMIJXEBQGC-MGPZ 50-325-40 MG ORAL TAB (Self Reported) Prescription: [...] ORAL TAB (Self Reported) External Note from [facility] Care Provider [phone], Dionicio Murrieta documented in this encounter Plan [...] documented as of this encounter Care Teams Rn Birthing Relationship Specialty Start Date End Date Aislinn [place] [address] PCP - General Family Medicine 04/26/19 03/10/22 Unassigned, DoctorMD [address] [place] [address] [address] [address] PCP - General Family Medicine 03/11/22 documented [...] prosecute any alcohol or drug abuse patient. [facility] [employer] (a.k[facility]a. [facility])
--- NOTE | 2025-06-23 11:57 | XRR_ITS ---
PROCEDURE INFORMATION: Exam: XR Chest Exam date and time: 06/23/2025 12:13 PM Age: 50 years old Clinical indication: Other: Swelling of legs; Additional info: Leg swelling TECHNIQUE: Imaging protocol: Radiologic exam of the chest. Views: 1 view. COMPARISON: CR XR chest 1V portable [id number] 06/06/2025 11:30 AM FINDINGS: Lungs: Unremarkable. No consolidation or mass. Pleural spaces: Unremarkable. No pleural effusion. No pneumothorax. Heart/Mediastinum: Unremarkable. No cardiomegaly. Bones/joints: Unremarkable. XR/XR chest 1V portable [id number] IMPRESSION: No acute findings.
--- NOTE | 2025-06-23 11:58 | ECG_ITS ---
[facility]: 2025-06-23 Pat Name: Georgia Swanson Department: Room: Gender: Female Electronic Specialist: : 1975 Requested By: Flaquita Mandel Order Number: [id number] Reading MD: RAUL CARMONA Measurements Intervals [place] Rate: 67 P: 48 [place]: 170 QRS: 7 QRSD: 91 T: 45 QT: 392 QTc: 416 Interpretive Statements SINUS RHYTHM WITH SINUS ARRHYTHMIA Compared to ECG 06/06/2025 12:56:59 No significant changes Electronically Signed On 06-26-2025 23:11:00 CARE CLINICIAN by RAUL CARMONA [email or web address]
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
[2025-06-23 12:28] LABS: Hematocrit 38.4 % (36-47); Hemoglobin 12.00 g/dL (11.27-16.99); Mean Corpuscular HGB Conc 31.3 g/dL (30-55); Mean Corpuscular Hemoglobin 27.3 pg (27-33); Mean Corpuscular Volume 87.5 fl (85-98); Nucleated Red Blood Cells % 0 %; Platelet Count 315 10^3/cmm (157-399); Red Blood Count 4.39 10^6/uL (3.85-5.65); White Blood Count 7.61 10^3/uL (3.29-11.43)
--- NOTE | 2025-06-23 12:43 | PC.NURSE ---
Pt asked for urine sample, pt states she is on her menstrual cycle, educated pt on a straight cath for urine so urine is uncontaminated with blood, pt states no, she does not want a straight cath done, pt states the straight cath causes to many side affects and urinary issues afterwards, pt voices being homeless and unable to deal with the issues caused by a straight cath.
[2025-06-23 12:49] LABS: Lactic Sepsis W/Reflex 1.2 mmol/L (0.5-2.2)
[2025-06-23 12:51] LABS: Troponin(5th) Baseline < 6 ng/L (0-10)
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
[2025-06-23 12:57] LABS: Alanine Aminotransferase 8 U/L (0-33); Albumin Level 3.9 g/dL (3.5-5.2); Alkaline Phosphatase 79 U/L (35-105); Anion Gap 11.6 (5-19); Aspartate Amino Transferase 12 U/L (0-32); Blood Urea Nitrogen 8 mg/dL (6-20); Calcium 8.8 mg/dL (8.5-10.5); Carbon Dioxide 27 mmol/L (22-29); Chloride 105 mmol/L (98-107); Globulin 2.7 g/dL (1.3-4.6); Glucose 111 mg/dL (65-115); NT Pro B Type Natriuretic Pept < 36 pg/mL (0-125); Osmolality Calculated 289 mOsm/kg (285-295); Potassium 3.6 mmol/L (3.5-5.1); Sodium 140 mmol/L (136-145); Total Protein 6.6 g/dL (6.6-8.7)
--- NOTE | 2025-06-23 12:58 | ECG_ITS ---
[facility]25-[facility]23 Pat Name: Georgia Swanson Department: Room: Gender: Female Radiation Oncology Nurse: : 1975 Requested By: Flaquita Mandel Order Number: [id number] Latha MD: RAUL CAROMNA Measurements Intervals [place] Rate: 75 P: 50 GA: 187 QRS: 5 QRSD: 84 T: 42 QT: 377 QTc: 423 Interpretive Statements SINUS RHYTHM Compared to ECG 06/23/2025 12:04:06 Sinus arrhythmia no longer present Electronically Signed On 06-26-2025 23:26:34 CODING SPECIALIST HOME HEALTH by RAUL CARMONA [email or web address]
--- NOTE | 2025-06-23 13:37 | PC.NURSE ---
Assumed Pt. care at 1315. pt. reports bilateral edema in lower legs. Pt. reports pain in neck. pt. reports SOB with activity and dizzines when she feels SOB.
== END 2025-06-23 16:20 | disposition home or self-care (01) ==
PROVIDERS: Emergency Provider Emergency Medicine
DX: R60.9 Edema, unspecified (principal); S10.93XA Contusion of unspecified part of neck, initial encounter; X58.XXXA Exposure to other specified factors, initial encounter; E11.9 Type 2 diabetes mellitus without complications; E78.5 Hyperlipidemia, unspecified
CPT/HCPCS: 36415; 71045; 80053; 83605; 83880; 84484; 85025; 86140; 93005; 99285; J9999

== ENCOUNTER 2025-06-24 18:12 | Emergency (ER) | payer MEDICAID, SELFPAY ==
--- OUTSIDE RECORDS SUMMARY | 2024-04-16 05:00 | XMS_ITS ---
Author Organization [facility] [address] Address [address] [facility] [address] [place] [address] Care Team Providers Care Aircraft Instrument Tester Name Role Phone Sunni Ramon Primary Care Provider Benoit Chance Unavailable [phone] Mike Diego Unavailable [phone] REASON FOR VISIT B/L Arm Medications Medication SIG (Take, Route, Frequency, Duration) Notes Start Date End Date Status Dulera 100-5 MCG/ACT Aerosol inhale TWO puffs TWICE DAILY Inhalation; Duration: 30 Days Active FreeStyle Philip 2 Sensor - Miscellaneous USE ONE sensor replace sensor EVERY 14 DAYS; Duration: 28 Days Active Insulin Glargine-yfgn 100 UNIT/ML Solution Pen-injector take 20 units UNDER SKIN AT BEDTIME Subcutaneous; Duration: 75 Days Active Lisinopril 10 MG Tablet 1 tablet Orally Once a day; Duration: 30 day(s) 03/08/2024 Active Ozempic (0.25 or 0.5 MG/DOSE) 2 MG/3ML Solution Pen-injector INJECT 0.25 MG SUBCUTANEOUSLY EVERY WEEK FOR FOUR WEEKS THEN increase TO 0.5 MG EVERY WEEK Subcutaneous; Duration: 28 Days Active Tylenol 325 MG Tablet 1 tablet as needed Orally every 6 hrs 02/17/2024 Active Cyclobenzaprine HCl 5 MG Tablet TAKE ONE TABLET BY MOUTH TWO TO THREE times DAILY NEEDED FOR MUSCLE SPASMS; MAY cause sedation Oral; Duration: 30 Days Active Social History Sex Assigned At : Social History Observation Description Sex Assigned At Female Problems Problem Type SNOMED Code ICD Code Onset Dates Problem Status W/U Status Risk Notes Problem Lumbar radiculopathy (524166793) Radiculopat hy, lumbar region (M54.16) Active confirmed Encounters Encounter Location Date Provider Diagnosis [facility] [address] [place] [address] 04/16/2024 Mike Diego Radiculopathy, lumbar region M54.16 Assessments Encounter Date Diagnosis (ICD Code) Assessment Notes Treatment Notes Treatment Clinical Notes Section Notes 04/16/2024 Radiculopathy, lumbar region (ICD-10 - M54.16) Plan Of Treatment No Information Progress Notes * Cyrus SWANSONАннаOB:1975 (50 yo F)Acc No.[id number]:04/16/2024 Patient: Georgia Hong Provider: Vijaya Diego DO :1975 A ge:48 Y S ex:Female Date:04/16/2024 Address:[address] [place], [place] [phone] Pcp:Sunni Ramon Subjective: * Chief Complaints: * B /L Arm * Medications: T akingDulera 100-5 MCG/ACT Aerosol inhale TWO puffs TWICE DAILY Inhalation FreeStyle Philip 2 Sensor - Miscellaneous USE ONE sensor replace sensor EVERY 14 DAYS Insulin Glargine-yfgn 100 UNIT/ML Solution Pen-injector take 20 units UNDER SKIN AT BEDTIME Subcutaneous Ozempic (0.25 or 0.5 MG/DOSE) 2 MG/3ML Solution Pen-injector INJECT 0.25 MG SUBCUTANEOUSLY EVERY WEEK FOR FOUR WEEKS THEN increase TO 0.5 MG EVERY WEEK Subcutaneous Cyclobenzaprine HCl 5 MG Tablet TAKE ONE TABLET BY MOUTH TWO TO THREE times DAILY NEEDED FOR MUSCLE SPASMS; MAY cause sedation Oral Tylenol 325 MG Tablet 1 tablet as needed Orally every 6 hrs Lisinopril 10 MG Tablet 1 tablet Orally Once a day Taking Dulera 100-5 MCG/ACT Aerosol inhale TWO puffs TWICE DAILY Inhalation Taking FreeStyle Philip 2 Sensor - Miscellaneous USE ONE sensor replace sensor EVERY 14 DAYS Taking Insulin Glargine-yfgn 100 UNIT/ML Solution Pen- injector take 20 units UNDER SKIN AT BEDTIME Subcutaneous Taking Ozempic (0.25 or 0.5 MG/DOSE) 2 MG/3ML Solution Pen-injector INJECT 0.25 MG SUBCUTANEOUSLY EVERY WEEK FOR FOUR WEEKS THEN increase TO 0.5 MG EVERY WEEK Subcutaneous Taking Cyclobenzaprine HCl 5 MG Tablet TAKE ONE TABLET BY MOUTH TWO TO THREE times DAILY NEEDED FOR MUSCLE SPASMS; MAY cause sedation Oral Taking Tylenol 325 MG Tablet 1 tablet as needed Orally every 6 hrs Taking Lisinopril 10 MG Tablet 1 tablet Orally Once a day Assessment: * Assessment: 1. R adiculopathy, lumbar region - M54.16 (Primary) Plan: * Procedure Codes: 9 5886 Needle electromyography, each [id number] NRV CNDJ TEST 9-10 STUDIES Billing Information: * Procedure Codes: 12107 Needle electromyography, each extremity. 8[address] NRV CNDJ TEST 9-10 STUDIES. * Electronic signature of Mike Diego DO on 06/24/2025 at 07:18 PM EST Sign off status: Pending * Provider: Vijaya Diego DO Date: Generated for Xenia valdez/Fabio/Maude on: 08/25/2024 07:18 PM EST
--- OUTSIDE RECORDS SUMMARY | 2024-04-19 05:20 | XMS_ITS ---
Author Organization [facility] [address] Address [address] [facility] [address] [place] [address] Care Team Providers Care Music Therapy Teacher Name Role Phone Sunni Ramon Primary Care Provider Benoit Chance [phone] REASON FOR VISIT No Physical Therapy Social History Sex Assigned At : Social History Observation Description Sex Assigned At Female Encounters Encounter Location Date Provider Diagnosis [facility] [address] [facility] [place] [address] 04/19/2024 Benoit Patton Plan Of Treatment No Information Progress Notes * Wily SWANSONOB:1975 (50 yo F)Acc No.[id number]:04/19/2024 Progress Note Patient: Georgia Hong Provider: GIANNI Wilcox :1975 A ge:48 Y S ex:Female Date:04/19/2024 Address:[address] [place], [place] [id number] Pcp:Sunni Ramon Subjective: * Chief Complaints: * N o Physical Therapy Billing Information: * Procedure Codes: * Electronic signature of TRICE Mathis on 06/24/2025 at 07:19 PM EST Sign off status: Pending * Provider: GIANNI Wilcox Date: Generated for Printi ng/Faxing/eTransmitting on: 08/25/2024 07:19 PM EST
--- OUTSIDE RECORDS SUMMARY | 2024-06-16 07:30 | XMS_ITS ---
Author Organization [facility] Address [address] [place] [address] Care Team Providers Care Forest Law And Policy Professor Name Role Phone Beneditco Talley MD Unavailable Unavailable Migration, Provider Unavailable Unavailable REASON FOR VISIT Follow Up Visit Encounters Encounter Location Date Provider Diagnosis [facility] [address] [place] [address] 06/16/2024 Provider Migration Plan Of Treatment No Information Progress Notes * Georgia ARAGONDOB:[birth year] (50 yo F)Acc No.[id number]:06/16/2024 Progress Notes Patient: Geo godinezGeorgia Provider: Km Frank :1975 A ge:49 Y S ex:Female Date:06/16/2024 Address:[address] [place] [address] Subjective: * Chief Complaints: * F ollow Up Visit * Electronic signature of Prov ider Migration on 06/24/2025 at 07:18 PM EST Sign off status: Pending * Provider: Km to Migration Date: 08/17/2023 Generated for Xenia valdez/Fabio/eTransmitting on: 08/25/2024 07:18 PM EST
--- OUTSIDE RECORDS SUMMARY | 2024-07-08 04:10 | XMS_ITS ---
Author Organization [facility] [address] Address [address] [facility] [address] [place] [address] Care Team Providers Care Hematology Oncology Consultant Name Role Phone Sunni Ramon Primary Care Provider Benoit Chance [phone] REASON FOR VISIT Pt Personal Reasons Social History Sex Assigned At : Social History Observation Description Sex Assigned At Female Encounters Encounter Location Date Provider Diagnosis [facility] [address] [facility] [place] [address] 07/08/2024 Benoit Patton Plan Of Treatment No Information Progress Notes * Wily SWANSONOB:1975 (50 yo F)Acc No.[id number]:07/08/2024 Progress Note Patient: Georgia Hong Provider: GIANNI Wilcox :1975 A ge:49 Y S ex:Female Date:07/08/2024 Address:[address] [place], [place] [phone] Pcp:Sunni Ramon Subjective: * Chief Complaints: * P t Personal Reasons Billing Information: * Procedure Codes: * Electronic signature of TRICE Mathis on 06/24/2025 at 07:19 PM EST Sign off status: Pending * Provider: GIANNI Wilcox Date: 0 07/08/2024 Generated for Printi ng/Faxing/eTransmitting on: 1 08/25/2024 07:19 PM EST
--- OUTSIDE RECORDS SUMMARY | 2024-08-02 05:00 | XMS_ITS ---
Author Organization [facility] Address [address] [place] [address] Care Team Providers Care Electron Beam Welder Setter Name Role Phone Benedicto Talley MD Unavailable [...] 08/02/2024 Encounters Encounter Location Date Provider Diagnosis [facility] [address] [place] [address] 08/02/2024 Provider Migration Plan Of Treatment No Information Progress Notes * Georgia ARAGONDOB:[birth year] (50 yo F)Acc No.[id number]:08/02/2024 Progress Notes Patient: Geo Georgia godinez Provider: Km Frank :1975 A ge:49 Y S ex:Female Date:08/02/2024 Address:[address] [place], [place] [phone] Subjective: * Chief Complaints: * O ffice Visit Objective: * Vitals: B P: 102/72 mm Hg, HR: 88 /min, Temp: 98.10 F, Oxygen sat %: 99 %, Wt: 253.0000 lbs, Wt-k.76 kg, Ht: 64.00 in, Ht-cm: 162.56 cm, BMI: 43.42 Index. Plan: * Procedure Codes: 3 078F DIAST BP < 80 MM [id number] SYST BP LT 130 MM [id number] BODY MASS INDEX DOCD Billing Information: * Procedure Codes: 3078F DIAST BP < 80 MM HG. 3074F SYST BP LT 130 MM HG. 3008F BODY MASS INDEX DOCD. * Electronic signature of Prov ider Migration on 06/24/2025 at 07:18 PM EST Sign off status: Pending * Provider: Km to Migration Date: 0 08/02/2024 Generated for Xenia valdez/Fabio/Maude on: 1 08/25/2024 07:18 PM EST
--- OUTSIDE RECORDS SUMMARY | 2024-09-06 03:30 | XMS_ITS ---
Author Organization [facility] Address [address] [place] [address] Care Team Providers Care Director Pharmacovigilance Name Role Phone Benedicto Talley MD Unavailable [...] Encounters Encounter Location Date Provider Diagnosis [facility] [address] [place] [address] 09/06/2024 Provider Migration Plan Of Treatment No Information Progress Notes * Georgia ARAGONDOB:[birth year] (50 yo F)Acc No.[id number]:09/06/2024 Progress Notes Patient: Geo Georgia godinez Provider: Km to Migration :1975 A ge:49 Y S ex:Female Date:09/06/2024 Address:[address] [place], [place] [phone] Subjective: * Chief Complaints: * F ollow [...] of Prov ider Migration on 06/24/2025 at 07:22 PM EST Sign off status: Pending * Provider: Km to Migration Date: 0 09/06/2024 Generated for Xenia valdez/Fabio/Rolandoitting on: 1 08/25/2024 07:22 PM EST
--- OUTSIDE RECORDS SUMMARY | 2024-10-02 04:45 | XMS_ITS ---
Author Organization [facility] are Address [address] [place] [address] Care Team Providers Care Medical Sales Name Role Phone Tristen Trish Sunni Primary Care Provider [phone] Benedicto Talley MD Unavailable Unavailable DR. Benedicto Talley Unavailable [phone] REASON FOR VISIT Walk-in Appointment Vital Signs Temperature 98.40 degrees Fahrenheit 025 Blood pressure systolic 130 mm Hg 10/03/19 25 Blood pressure diastolic 78 mm Hg 025 Heart Rate 85 /min 10/02/2024 Height 64.00 in 10/02/2024 Weight 250.2000 lbs 10/02/2024 BMI 42.94 kg/m2 10/02/2024 Oximetry 99 % 10/02/2024 Height-cm 162.56 cm 10/02/2024 Weight-kg 113.49 kg 10/02/2024 Encounters Encounter Location Date Provider Diagnosis [facility] [address] [address] 10/02/2024 Benedicto Talley Plan Of Treatment No Information Progress Notes * Georgia ARAGONDOB:[birth year] (50 yo F)Acc No.[id number]:10/02/2024 Progress Notes Patient: Geo godinez Georgia Meza Provider: Georgia Talley MD :1975 A ge:49 Y S ex:Female Date:10/02/2024 Address:[address] [place], [place] [phone] Pcp:MRS. Sunni Ramon Subjective: * Chief Complaints: * W alk-in Appointment Objective: * Vitals: B P: 130/78 mm Hg, HR: 85 /min, Temp: 98.40 F, Oxygen sat %: 99 %, Wt: 250.2000 lbs, Wt-k.49 kg, Ht: 64.00 in, Ht-cm: 162.56 cm, BMI: 42.94 Index. * Electronic signature of DR. Benedicto Talley MD on 06/24/2025 at 07:21 PM EST Sign off status: Pending * Provider: Georgia Talley MD Date: 0 10/02/2024 Generated for Xenia valdez/Fabio/Rolandoitting on: 1 08/25/2024 07:21 PM EST
--- OUTSIDE RECORDS SUMMARY | 2024-10-02 04:45 | XMS_ITS ---
Author Organization [facility] Address [address] [place] [address] Care Team Providers Care Status Controller Name Role Phone Benedicto Talley MD Unavailable Unavailable DR. Benedicto Talley Unavailable [phone] REASON FOR VISIT Walk-in Appointment Vital Signs Temperature 98.40 degrees Fahrenheit 025 Blood pressure systolic 130 mm Hg 10/03/19 25 Blood pressure diastolic 78 mm Hg 025 Heart Rate 85 /min 10/02/2024 Height 64.00 in 10/02/2024 Weight 250.2000 lbs 10/02/2024 BMI 42.94 kg/m2 10/02/2024 Oximetry 99 % 10/02/2024 Height-cm 162.56 cm 10/02/2024 Weight-kg 113.49 kg 10/02/2024 Encounters Encounter Location Date Provider Diagnosis [facility] [address] [place] [address] 10/02/2024 Benedicto Talley Plan Of Treatment No Information Progress Notes * Georgia ARAGONDOB:[birth year] (50 yo F)Acc No.[id number]:10/02/2024 Patient: Geo godinez Georgia Meza Provider: Georgia Talley MD :1975 A ge:49 Y S ex:Female Date:10/02/2024 Address:[address] [place], [place] [phone] Subjective: * Chief Complaints: * W alk-in Appointment Objective: * Vitals: B P: 130/78 mm Hg, HR: 85 /min, Temp: 98.40 F, Oxygen sat %: 99 %, Wt: 250.2000 lbs, Wt-k.49 kg, Ht: 64.00 in, Ht-cm: 162.56 cm, BMI: 42.94 Index. * Electronic signature of DR. Benedicto Talley MD on 06/24/2025 at 07:19 PM EST Sign off status: Pending * Provider: Georgia Talley MD Date: 0 10/02/2024 Generated for Xenia valdez/Fabio/Rolandoitting on: 1 08/25/2024 07:19 PM EST
--- OUTSIDE RECORDS SUMMARY | 2024-10-05 03:00 | XMS_ITS ---
Author Organization [facility] are Address [address] [place] [address] Care Team Providers Care Gas Main And Line Fitter Name Role Phone MRS. Sunni Ramon Primary Care Provider Benedicto Talley MD Unavailable Unavailable Results Component Value Reference Range Notes BLOOD GLUCOSE-HOME MONITOR ( 04099) Reviewed date:10/05/2024 12:00:00 AM Interpretation: Performing Lab: Notes/Report: BLOOD GLUCOSE-HOME MONITOR 83 NR URINALYSIS W/O MICROSCOPY (6 1002) Reviewed date:10/05/2024 12:00:00 AM Interpretation: Performing Lab: Notes/Report: UA - APPEARANCE clear NR UA - BILIRUBIN negative NR UA - BLOOD negative NR UA - COLOR yellow NR UA - COMMENTS x NR UA - GLUCOSE 1000 NR UA - KETONES 80 NR UA - LEUKOCYTE ESTERASE negative NR UA - NITRITE negative NR UA - PH 6 4.6-8.0 UA - PROTEIN negative negative NR UA - REDUCING SUBSTANCE x NR UA - SPECIFIC GRAVITY 1.020 1.001-1.035 UA - URINE SEDIMENT x NR REASON FOR VISIT Annual Physical Immunizations Vaccine [place] Administration [place] [address] TDAP IM Intramuscular 10/05/2024 Pending ,Immuniz ationName,' : Tdap (7 years and up) (07766) ,Status,' : Ordered Vital Signs Temperature 98.50 degrees Fahrenheit 025 Blood pressure systolic 120 mm Hg 10/06/19 25 Blood pressure diastolic 80 mm Hg 025 Heart Rate 76 /min 10/05/2024 Height 64.00 in 10/05/2024 Weight 243.6000 lbs 10/05/2024 BMI 41.81 kg/m2 10/05/2024 Oximetry 99 % 10/05/2024 Height-cm 162.56 cm 10/05/2024 Weight-kg 110.50 kg 10/05/2024 Encounters Encounter Location Date Provider Diagnosis [facility] [address] [place] [address] 10/05/2024 Sunni Ramon Plan Of Treatment No Information Progress Notes * Georgia ARAGON JDOB:[birth year] (50 yo F)Acc No.[id number]:10/05/2024 Progress Notes Patient: Georgia Hong Provider: CITLALLI Delgado :1975 A ge:49 Y S ex:Female Date:10/05/2024 Address:[address] [place], [place] [phone] Subjective: * Chief Complaints: * A nnual Physical * Ocular Surgical History: Objective: * Vitals: B P: 120/80 mm Hg, HR: 76 /min, Temp: 98.50 F, Oxygen sat %: 99 %, Wt: 243.6000 lbs, Wt-k.50 kg, Ht: 64.00 in, Ht-cm: 162.56 cm, BMI: 41.81 Index. Vision Examination: Plan: * Treatment: Value Reference Range B LOOD GLUCOSE-HOME MONITOR 83 NR ?LAB: URINALYSIS W/O MICROSCOPY (45058) (Collection Date & Time - 10/05/2024)* Value Reference Range U A - APPEARANCE clear NR * U A - BILIRUBIN negative NR * U A - BLOOD negative NR * U A - COLOR yellow NR * U A - COMMENTS x NR * U A - GLUCOSE 1000 NR * U A - KETONES 80 NR * U A - LEUKOCYTE ESTERASE negative NR * U A - NITRITE negative NR * U A - PH 6 4.6-8.0 * U A - PROTEIN negative negative NR * U A - REDUCING SUBSTANCE x NR * U A - SPECIFIC GRAVITY 1.020 1.001-1.035 * U A - URINE SEDIMENT x NR * Immunizations: 05623 TDAP (Route: Intramuscular) (Pending) * Labs: * L ab: BLOOD GLUCOSE-HOME MONITOR (90256) (Collection Date & Time - 10/05/2024) Value Reference Range B LOOD GLUCOSE-HOME MONITOR 83 NR * BLOOD GLUCOSE-HOME MONITOR: AbnormalFlags: N ?Lab: URINALYSIS W/O MICROSCOPY (66790) (Collection Date & Time - 10/05/2024)* Value Reference Range U A - APPEARANCE clear NR * U A - BILIRUBIN negative NR * U A - BLOOD negative NR * U A - COLOR yellow NR * U A - COMMENTS x NR * U A - GLUCOSE 1000 NR * U A - KETONES 80 NR * U A - LEUKOCYTE ESTERASE negative NR * U A - NITRITE negative NR * U A - PH 6 4.6-8.0 * U A - PROTEIN negative negative NR * U A - REDUCING SUBSTANCE x NR * U A - SPECIFIC GRAVITY 1.020 1.001-1.035 * U A - URINE SEDIMENT x NR * UA - APPEARANCE: AbnormalFla gs: NUA - BILIRUBIN: AbnormalFlags: NUA - BLOOD: AbnormalFlags: NUA - COLOR: AbnormalFlags: NUA - COMMENTS: AbnormalFlags: NUA - GLUCOSE: AbnormalFlags: AUA - KETONES: AbnormalFlags: AUA - LEUKOCYTE ESTERASE: AbnormalFlags: NUA - NITRITE: AbnormalFlags: NUA - PH: AbnormalFlags: AUA - PROTEIN: AbnormalFlags: NUA - REDUCING SUBSTANCE: AbnormalFlags: NUA - SPECIFIC GRAVITY: AbnormalFlags: NUA - URINE SEDIMENT: AbnormalFlags: N * Procedure Codes: 9 0471 IMMUNIZATION [id number] TDAP VACCINE >7 [id number] DIAST BP 80-89 MM [id number] SYST BP LT 130 MM [id number] BODY MASS INDEX [id number] BRIEF EMOTIONAL/BEHAV ASSMT Billing Information: * Procedure Codes: 00157 IMMUNIZATION ADMIN. 43555 TDAP VACCINE >7 IM. 3079F DIAST BP 80-89 MM HG. 3074F SYST BP LT 130 MM HG. 3008F BODY MASS INDEX DOCD. 02110 BRIEF EMOTIONAL/BEHAV ASSMT. * Electronic signature of MRS. Moeller GIANNI Ramon on 06/24/2025 at 07:20 PM EST Sign off status: Pending * Provider: CITLALLI Delgado Date: 0 10/05/2024 Generated for Xenia valdez/Fabio/Maude on: 1 08/25/2024 07:20 PM EST
--- OUTSIDE RECORDS SUMMARY | 2024-10-05 03:00 | XMS_ITS ---
Author Organization [facility] Address [address] [place] [address] Care Team Providers Care Incident Handler Name Role Phone Benedicto Talley MD Unavailable Unavailable Migration, Provider Unavailable Unavailable REASON FOR VISIT Annual Physical Immunizations Vaccine Route Administration Date [place]ts 57549 Tdap OTH Other/Miscellaneous 10/05/2024 Pending ,ImmunizationName,' : Tdap (7 years and up) (04933) ,Status,' : Ordered Source Location: <Undefined> Vital Signs Temperature 98.50 degrees Fahrenheit 025 Blood pressure systolic 120 mm Hg 10/06/19 25 Blood pressure diastolic 80 mm Hg 025 Heart Rate 76 /min 10/05/2024 Height 64.00 in 10/05/2024 Weight 243.6000 lbs 10/05/2024 BMI 41.81 kg/m2 10/05/2024 Oximetry 99 % 10/05/2024 Height-cm 162.56 cm 10/05/2024 Weight-kg 110.50 kg 10/05/2024 Encounters Encounter Location Date Provider Diagnosis [facility] [address] [place] [address] 10/05/2024 Provider Migration Plan Of Treatment No Information Progress Notes * Georgia ARAGONDOB:[birth year] (50 yo F)Acc No.[id number]:10/05/2024 Progress Notes Patient: Geo Georgia godinez Provider: Km to Migration :1975 A ge:49 Y S ex:Female Date:10/05/2024 Address:[address] [place], [place] [phone] Subjective: * Chief Complaints: * A nnual Physical * Ocular Surgical History: Objective: * Vitals: B P: 120/80 mm Hg, HR: 76 /min, Temp: 98.50 F, Oxygen sat %: 99 %, Wt: 243.6000 lbs, Wt-k.50 kg, Ht: 64.00 in, Ht-cm: 162.56 cm, BMI: 41.81 Index. Vision Examination: Plan: * Immunizations: 01925 Tdap (Route: Other/Miscellaneous) (Pending) * Procedure Codes: 9 0471 IMMUNIZATION [id number] TDAP VACCINE >7 [id number] DIAST BP 80-89 MM [id number] SYST BP LT 130 MM [id number] BODY MASS INDEX [id number] BRIEF EMOTIONAL/BEHAV ASSMT Billing Information: * Procedure Codes: 79849 IMMUNIZATION ADMIN. 72957 TDAP VACCINE >7 IM. 3079F DIAST BP 80-89 MM HG. 3074F SYST BP LT 130 MM HG. 3008F BODY MASS INDEX DOCD. 48187 BRIEF EMOTIONAL/BEHAV ASSMT. * Electronic signature of Prov ider Migration on 06/24/2025 at 07:21 PM EST Sign off status: Pending * Provider: Km to Migration Date: 0 10/05/2024 Generated for Xenia valdez/Fabio/Rolandoitting on: 1 08/25/2024 07:21 PM EST
--- OUTSIDE RECORDS SUMMARY | 2024-10-05 04:10 | XMS_ITS ---
Author Organization [facility] Address [address] [facility] [address] [place] [address] Care Team Providers Care Thickener Operator Name Role Phone Sunni Ramon Primary Care Provider Benoit Chance [phone] REASON FOR VISIT C Misc Reason Medications [...] Female Encounters Encounter Location Date Provider Diagnosis [facility] [address] [facility] [place] [address] 10/05/2024 Benoit Patton Plan Of Treatment No Information Progress Notes * Wily SWANSONOB:1975 (50 yo F)Acc No.[id number]:10/05/2024 Progress Note Patient: Georgia Hong Provider: GIANNI Wilcox :1975 A ge:49 Y S ex:Female Date:10/05/2024 Address:[address] [place], [place] [phone] Pcp:Sunni Ramon Subjective: * Chief Complaints: * [...] signature of TRICE Mathis on 06/24/2025 at 07:20 PM EST Sign off status: Pending * Provider: GIANNI Wilcox Date: 0 10/05/2024 Generated for Xenia Munoz/Maude on: 1 08/25/2024 07:20 PM EST
--- OUTSIDE RECORDS SUMMARY | 2024-10-14 04:00 | XMS_ITS ---
Author Organization [facility] are Address [address] [place] [address] Care Team Providers Care Block And Case Maker Name Role Phone MRS. Sunni Ramon Primary Care Provider [phone] Benedicto Talley MD Unavailable REASON FOR VISIT Annual Physical Encounters Encounter Location Date Provider Diagnosis [facility] [address] [place] [address] 10/14/2024 Sunni Ramon Plan Of Treatment No Information Progress Notes * SWANSON, [place] JDOB:[birth year] (50 yo F)Acc No.[id number]:10/14/2024 Progress Notes Patient: Georgia Hong Provider: CITLALLI Delgado :1975 A ge:49 Y S ex:Female Date:10/14/2024 Address:[address] [place] [address] Subjective: * Chief Complaints: * A nnual Physical * Ocular Surgical History: Objective: Vision Examination: * Electronic signature of MRS. Moeller GIANNI Ramon on 06/24/2025 at 07:22 PM EST Sign off status: Pending * Provider: CITLALLI Delgado Date: 0 10/14/2024 Generated for Xenia valdez/Fabio/eTransmitting on: 1 08/25/2024 07:22 PM EST
--- OUTSIDE RECORDS SUMMARY | 2024-10-14 04:00 | XMS_ITS ---
Author Organization [facility] Address [address] [place] [address] Care Team Providers Care Expander Machine Operator Name Role Phone Benedicto Talley MD Unavailable Unavailable Migration, Provider Unavailable Unavailable REASON FOR VISIT Annual Physical Encounters Encounter Location Date Provider Diagnosis [facility] [address] [place] [address] 10/14/2024 Provider Migration Plan Of Treatment No Information Progress Notes * [place] ARAGONDOB:[birth year] (50 yo F)Acc No.[id number]:10/14/2024 Progress Notes Patient: Geo godinezGeorgia Provider: Km Frank :1975 A ge:49 Y S ex:Female Date:10/14/2024 Address:[address] [place] [address] Subjective: * Chief Complaints: * A nnual Physical * Ocular Surgical History: Objective: Vision Examination: * Electronic signature of Prov ider Migration on 06/24/2025 at 07:20 PM EST Sign off status: Pending * Provider: Km to Migration Date: 0 10/14/2024 Generated for Xenia valdez/Fabio/Maude on: 1 08/25/2024 07:20 PM EST
--- OUTSIDE RECORDS SUMMARY | 2024-11-04 03:00 | XMS_ITS ---
Author Organization [facility] are Address [address] [place] [address] Care Team Providers Care Mixer Tender Name Role Phone RamonMRS. ирина Sunni Primary Care Provider Benedicto Talley MD Unavailable REASON FOR VISIT Follow Up Visit Vital Signs Temperature 98.40 degrees Fahrenheit 025 Blood pressure systolic 122 mm Hg 11/05/19 25 Blood pressure diastolic 84 mm Hg 025 Heart Rate 90 /min 11/04/2024 Height 64.00 in 11/04/2024 Weight 239.0000 lbs 11/04/2024 BMI 41.02 kg/m2 11/04/2024 Oximetry 97 % 11/04/2024 Height-cm 162.56 cm 11/04/2024 Weight-kg 108.41 kg 11/04/2024 Encounters Encounter Location Date Provider Diagnosis [facility] [address] [place] [address] 11/04/2024 Sunni Ramon Plan Of Treatment No Information Progress Notes * [place] ARAGONDOB:[birth year] (50 yo F)Acc No.[id number]:11/04/2024 Progress Notes Patient: Geo godinez [place] Meza Provider: CITLALLI Delgado :1975 A ge:49 Y S ex:Female Date:11/04/2024 Address:[address] [place], [place] [phone] Subjective: * Chief Complaints: * F ollow Up Visit Objective: * Vitals: B P: 122/84 mm Hg, HR: 90 /min, Temp: 98.40 F, Oxygen sat %: 97 %, Wt: 239.0000 lbs, Wt-k.41 kg, Ht: 64.00 in, Ht-cm: 162.56 cm, BMI: 41.02 Index. Plan: * Procedure Codes: 3 079F DIAST BP 80-89 MM [id number] SYST BP LT 130 MM [id number] BODY MASS INDEX DOCD Billing Information: * Procedure Codes: 3079F DIAST BP 80-89 MM HG. 3074F SYST BP LT 130 MM HG. 3008F BODY MASS INDEX DOCD. * Electronic signature of GIANNI Porter on 06/24/2025 at 07:20 PM EST Sign off status: Pending * Provider: CITLALLI Delgado Date: 0 11/04/2024 Generated for Xenia valdez/Fabio/Maude on: 1 08/25/2024 07:20 PM EST
--- OUTSIDE RECORDS SUMMARY | 2024-11-04 03:00 | XMS_ITS ---
Author Organization [facility] Address [address] [place] [address] Care Team Providers Care Electric Meter Repairer Helper Name Role Phone Benedicto Talley MD [...] 11/04/2024 Encounters Encounter Location Date Provider Diagnosis [facility] [address] [place] [address] 11/04/2024 Provider Migration Plan Of Treatment No Information Progress Notes * [place] ARAGONDOB:[birth year] (50 yo F)Acc No.[id number]:11/04/2024 Progress Notes Patient: Geo [place] godinez Provider: Km to Migration :1975 A ge:49 Y S ex:Female Date:11/04/2024 Address:[address] [place], [place] [id number] Subjective: * Chief Complaints: * F ollow Up Visit Objective: * Vitals: B P: 122/84 mm Hg, HR: 90 /min, Temp: 98.40 F, Oxygen sat %: 97 %, Wt: 239.0000 lbs, Wt-k.41 kg, Ht: 64.00 in, Ht-cm: 162.56 cm, BMI: 41.02 Index. Plan: * Procedure Codes: 3 079F DIAST BP 80-89 MM [id number] SYST BP LT 130 MM [id number] BODY MASS INDEX DOCD Billing Information: * Procedure Codes: 3079F DIAST BP 80-89 MM HG. 3074F SYST BP LT 130 MM HG. 3008F BODY MASS INDEX DOCD. * Electronic signature of Prov ider Migration on 06/24/2025 at 07:17 PM EST Sign off status: Pending * Provider: Km to Migration Date: 0 11/04/2024 Generated for Xenia valdez/Fabio/Maude on: 1 08/25/2024 07:17 PM EST
--- OUTSIDE RECORDS SUMMARY | 2025-01-06 03:30 | XMS_ITS ---
Author Organization [facility] are Address [address] [place] [address] Care Team Providers Care Reworker Name Role Phone MRS. Sunni Ramon Primary Care Provider Benedicto Talley MD Unavailable REASON FOR VISIT Follow Up Visit Encounters Encounter Location Date Provider Diagnosis [facility] [address] [place] [address] 01/06/2025 Sunni Ramon Plan Of Treatment No Information Progress Notes * SWANSONGeorgiaDOB:[birth year] (50 yo F)Acc No.[id number]:01/06/2025 Progress Notes Patient: [place] Hong Provider: CITLALLI Delgado :1975 A ge:49 Y S ex:Female Date:01/06/2025 Address:[address] [place], [place] [phone] Subjective: * Chief Complaints: * F ollow Up Visit * Electronic signature of MRS. Moeller GIANNI Ramon on 06/24/2025 at 07:17 PM EST Sign off status: Pending * Provider: CITLALLI Delgado Date: 0 01/06/2025 Generated for Xenia valdez/Fabio/eTransmitting on: 1 08/25/2024 07:17 PM EST
--- OUTSIDE RECORDS SUMMARY | 2025-01-06 03:30 | XMS_ITS ---
Author Organization [facility] Address [address] [place] [address] Care Team Providers Care Hand Edger Name Role Phone Benedicto Talley MD Unavailable Unavailable Migration, Provider Unavailable Unavailable REASON FOR VISIT Follow Up Visit Encounters Encounter Location Date Provider Diagnosis [facility] [address] [place] [address] 01/06/2025 Provider Migration Plan Of Treatment No Information Progress Notes * [place] ARAGONDOB:[birth year] (50 yo F)Acc No.[id number]:01/06/2025 Progress Notes Patient: Geo godinezGeorgia Provider: Km Frank :1975 A ge:49 Y S ex:Female Date:01/06/2025 Address:[address] [place] [address] Subjective: * Chief Complaints: * F ollow Up Visit * Electronic signature of Prov ider Migration on 06/24/2025 at 07:21 PM EST Sign off status: Pending * Provider: Km to Migration Date: 0 01/06/2025 Generated for Xenia valdez/Fabio/eTransmitting on: 1 08/25/2024 07:21 PM EST
--- OUTSIDE RECORDS SUMMARY | 2025-02-26 03:00 | XMS_ITS ---
Author Organization [facility] are Address [address] [place] [address] Care Team Providers Care Front Desk Worker Name Role Phone MRS. Sunni Ramon Primary Care Provider [phone] Benedicto Talley MD Unavailable Unavailable Migration, Provider Unavailable Unavailable REASON FOR VISIT EMR-Héctor Encounters Encounter Location Date Provider Diagnosis [facility] [address] [place] [address] 02/26/2025 Provider Migration Plan Of Treatment Medication Medication Name Sig Start Date Stop Date Notes promethazine 6.25mg/5 mL promethazine 6. 25mg/5 mL, 4 Milliliter every 6 hours as needed for nausea # 360, 07/24/2022, No Refill. Inactive oral every 6 hours as needed for nausea; Duration: 5 07/24/2022 3 *Reorder from [facility] for eRx and Interaction Alerts* Pravastatin 20mg pravastatin 20mg, 1 Tablet daily # 30, 09/12/2023, No Refill. Inactive oral daily; Duration: 30 09/12/2023 4 *Reorder from [facility] for eRx and Interaction Alerts* tamsulosin 0.4mg tamsulosin 0.4mg, 1 (one) Capsule daily # 7, 04/03/2022, No Refill. Inactive oral daily; Duration: 7 04/03/2022 3 *Reorder from [facility] for eRx and Interaction Alerts* Ozempic 0.25 mg or 0.5mg (2 mg/3 Ozempic 0.25 mg or 0.5mg (2 mg/3, 0.5 mg weekly # 3, 12/11/2023, No Refill. Inactive subcutaneous weekly; Duration: 28 12/11/2023 4 *Reorder from [facility] for eRx and Interaction Alerts* Ozempic 1 mg/dose(4 mg/3 mL Ozempic 1 mg/dose(4 mg/3 mL, 1 (one) mL weekly # 4, 05/07/2024, No Refill. Inactive subcutaneous weekly; Duration: 30 05/07/2024 5 *Reorder from [facility] for eRx and Interaction Alerts* cyclobenzaprine 5mg cyclobenzaprine 5mg, 1 (one) Tablet three times daily # 15, 04/03/2022, No Refill. Inactive oral three times daily; Duration: 5 04/03/2022 3 *Reorder from [facility] for eRx and Interaction Alerts* cholecalciferol (vitamin D3) 1,250 mcg(50,000 un cholecalciferol (vitamin D3) 1,250 mcg(50,000 un, 1 Capsule every week # 12, 03/11/2024, No Refill. Inactive oral every week; Duration: 84 03/11/2024 4 *Reorder from [facility] for eRx and Interaction Alerts* Lantus Solostar U-100 Insulin 100 unit/mL(3 mL) Lantus Solostar U-100 Insulin 100 unit/mL(3 mL), 20 units at bedtime # 10, 05/07/2024, Ref. x5. Inactive subcutaneous at bedtime; Duration: 30 05/07/2024 5 *Reorder from [facility] for eRx and Interaction Alerts* HumaLOG KwikPen Insulin 100unit/mL HumaLOG KwikPen Insulin 100unit/mL, 5 units subcutaneous three times a day with breakfast, lunch, and dinner # 5, 03/10/2024, Ref. x5. Inactive subcutaneous subcutaneous three times a day with breakfast, lunch, and dinner; Duration: 30 03/10/2024 4 *Reorder from [facility] for eRx and Interaction Alerts* Ozempic 2 mg/dose(8 mg/3 mL Ozempic 2 mg/dose(8 mg/3 mL, 2 (two) milligram SQ once weekly # 9, 03/14/2023, No Refill. Inactive subcutaneous SQ once weekly; Duration: 03/14/2023 3 *Reorder from [facility] for eRx and Interaction Alerts* FreeStyle Philip 2 [place] - Device FreeStyle Philip 2 [place] , 1 (one) Device as directed # [...] 2 sensors per 28 days Dexcom G5 Plate Glass Grinder Kit Dexcom G5 Receive r Kit , 1 (one) Device as directed # 1, 11/10/2020, Ref. x11. Inactive as directed; Duration: 14 11/10/2020 1 DX: UNCONTROLLED INSULLIN DEPENDENT DIABETES Guardian Sensor (3) Guardian Sensor (3) , as directed # 90, 11/08/2020, Ref. x3. Inactive as directed; Duration: 11/08/2020 1 1YR SUPPLY Soliqua 100-33 UNT-MCG/ML Solution Pen-injector Soliqua [id number], 10 units at bedtime daily for type [...] once weekly; Duration: 30 08/30/2020 *Reorder from [facility] for eRx and Interaction Alerts* Lyndsey Allergy 180MG Lyndsey Allergy 18 0MG, 1 (one) Tablet daily # 30, 10/28/2018, Ref. x6. Inactive Oral daily; Duration: 30 10/28/2018 9 *Pick strength-form from [employer] for eRX* metFORMIN HCl ER 500 MG [...] daily; Duration: 0 12/08/2020 *Pick strength-form from [employer] for eRX* Dulera 100-5 MCG/ACT Aerosol Dulera 100-5mcg/actuat, 2 puffs 2 times per day # 13, 12/23/2023, Ref. x5. Inactive Inhalation 2 times per day; Duration: 30 12/23/2023 4 B-6 100MG B-6( 100MG Oral 1 da geoff ) Inactive -Hx Entry Oral daily; Duration: 0 12/24/2020 *Pick strength-form from [facility] for eRX* ZyrTEC-D Allergy & Congestion 5-120MG ZyrTEC-D Allergy & Congestion 5-120MG, 1 (one) Tablet daily # 20, 08/11/2018, No Refill. Inactive Oral daily; Duration: 20 08/11/2018 9 *Pick strength-form from [facility] for eRX* Zoloft 50MG Zoloft 50MG, 1 (one) Tablet daily # 90, 07/10/2019, Ref. x3. Inactive Oral daily; Duration: 90 07/10/2019 0 *Pick strength-form from [facility] for eRX* Ventolin HFA 108 (90 Base) [...] Oral daily; Duration: 0 07/06/2019 *Reorder from [facility] for eRx and Interaction Alerts* Voltaren 1% Voltaren 1%, 2 (two) gram Apply to the affected joint(s) twice daily as needed for pain # 100, 08/11/2020, No Refill. Inactive External Apply to the affected joint(s) twice daily as needed for pain; Duration: 10 08/11/2020 1 *Pick strength-form from [facility] for eRX* Sucralfate 1 GM/10ML Suspension Sucralfate [...] wheezing; Duration: 30 11/21/2020 1 *Reorder from [facility] for eRx and Interaction Alerts* Phenazopyridine HCl 200MG Phenazopyridin e HCl 200MG, 1 (one) Tablet three times daily as needed for urinary symptoms # 21, 01/04/2019, Ref. x2. Inactive Oral three times daily as needed for urinary symptoms; Duration: 7 01/04/2019 9 *Pick strength-form from [facility] for eRX* Phentermine HCl 37.5 MG Capsule [...] Duration: 30 06/13/2021 2 *Pick strength-form from [facility] for eRX* medroxyPROGESTERone Acetate 10 MG Tablet [...] daily; Duration: 0 07/05/2019 *Pick strength-form from [facility] for eRX* Lisinopril 10 MG Tablet lisinopriL [...] eating; Duration: 3 07/02/2018 9 *Reorder from [facility] for eRx and Interaction Alerts* Furosemide 20 MG Tablet furosemide 20mg, 1 (one) Tablet once daily # 30, 06/07/2022, Ref. x5. Inactive Oral once daily; Duration: 30 06/07/2022 4 Folic Acid 400MCG Folic Acid( 400MCG O ral 1 tablet daily ) Inactive -Hx Entry Oral daily; Duration: 0 12/08/2020 *Pick strength-form from [facility] for eRX* Gabapentin 300mg gabapentin( 300mg or al 1 three times daily ) Inactive -Hx Entry oral three times daily; Duration: 0 10/02/2024 5 *Pick strength-form from [facility] for eRX* glipiZIDE 5 MG Tablet GlipiZIDE [...] Duration: 10 07/15/2017 8 *Pick strength-form from [facility] for eRX* Doxycycline Hyclate 100 MG [...] Duration: 7 06/21/2021 2 *Pick strength-form from [employer] for eRX* Bromfed DM 2-30-10 MG/5ML Syrup [...] Oral three times daily; Duration: 30 05/21/2019 Ptbmbjhunh-JZNU-Hjdphiih 50-325-40 MG Capsule Zlbixooodg-TXQV-Csddjjkw 50-325-40MG, 1 (one) Capsule every 4-6 hours [...] dizziness; Duration: 0 09/06/2024 5 *Reorder from [facility] for eRx and Interaction Alerts* Bactrim DS 800-160MG Bactrim DS 800-160M G, 1 (one) Tablet two times daily # 10, 05/14/2021, No Refill. Inactive Oral two times daily; Duration: 5 05/14/2021 *Pick strength-form from [facility] for eRX* Progress Notes * Georgia SWANSONDOB:[birth year] (50 yo F)Acc No.[id number]:02/26/2025 Patient: [place] CHRISTIE Susana :1975 A ge:49 Y S ex:Female Address:[address] [place] [address], [address] * Refills Stop Meclizine, 12.5mg, oral, 30, [...] needed for congestion and cough, 10 Stop Yaykpqyjln-VCNA-Aibanqcl Capsule, 50-325-40 MG, Oral, 15, Cqpgljtwdf-GTUT-Vyeekfaq 50-325-40MG, 1 (one) Capsule every 4-6 hours [...] Solution Pen-injector, 100-33 UNT-MCG/ML, Subcutaneous, 1, Soliqua [id number], 10 units at bedtime daily for type [...] Inactive, as directed, 90 Stop Dexcom G5 Plate Glass Grinder Kit, 1, Dexcom G5 Plate Glass Grinder Kit , 1 (one) Device as directed # 1, 11/10/2020, Ref. x11. Inactive, as directed, 14 Stop FreeStyle Philip 2 [place] Device, - , 1, FreeStyle Philip 2 [place] , 1 (one) Device as directed # [...]
--- OUTSIDE RECORDS SUMMARY | 2025-02-27 03:00 | XMS_ITS ---
Author Organization [facility] are Address [address] [place] [address] Care Team Providers Care Patrol Man Name Role Phone MRS. Sunni Ramon Primary Care Provider Benedicto Talley MD Unavailable Unavailable Migration, Provider Unavailable Unavailable Allergies Allergen (clinical drug ingredient) Drug/Non Drug Allergy documented on EMR Reaction Allergy Type Onset Date Status Allergies Reconciled (uncoded) Unknown Allergy Active azithromycin Azithromycin *CHEMICALS* (uncoded) Unknown Allergy Active Blueberry Flavor *PHARMACEUTICAL ADJUVANTS* (uncoded) Unknown Allergy Active Iodine *ANTISEPTICS & DISINFECTANTS* (uncoded) Unknown Allergy Active Lactase *DIETARY PRODUCTS/DIETARY MANAGEMENT PRODU (uncoded) Unknown Allergy Active montelukast Montelukast Sodium *ANTIASTHMATIC AND BRONCHODILAT (uncoded) Unknown Allergy Active Raspberry Flavor *PHARMACEUTICAL ADJUVANTS* (uncoded) Unknown Allergy Active erythromycin Erythromycin Unknown Drug Allergy A ctive banana allergenic extract Banana (Diagnostic) Unknown Drug Allergy Active Substance with penicillin structure and antibacterial mechanism of action (substance) Penicillins Unknown Drug Allergy Active Shellfish (FN) Shellfish-derived Products Unknown Drug Allergy Active REASON FOR VISIT EMR-Héctor Medications Medication SIG (Take, Route, Frequency, Duration) Notes Start Date End Date Status Ajovy Autoinjector 225mg/1.5 mL Ajovy Autoinjector( 225mg/1.5 mL subcutaneous 1 every 12 weeks ) Active -Hx Entry subcutaneous every 12 weeks; Duration: 0 *Reorder from [facility] for eRx and Interaction Alerts* 11/04/2024 Active FreeStyle Philip 3 Sensor - Miscellaneous FreeStyle Philip 3 Sensor( miscellaneous every 14 days ) Active -Hx Entry miscellaneous every 14 days; Duration: 0 11/04/2024 Active Folic Acid Xtra Folic Acid Xtra( Ora l 1 (one) daily ) Active -Hx Entry Oral daily; Duration: 30 *Reorder from [facility] for eRx and Interaction Alerts* 04/27/2021 Active BreatheRite Valved MDI Chamber - Device BreatheRite Valved MDI Chamber , 1 (one) device use with albuterol inhaler as needed # 1, 05/14/2024, No Refill. Active miscellaneous use with albuterol inhaler as needed; Duration: 0 05/14/2024 Active Farxiga 10 MG Tablet Farxiga 10mg, 1 Tablet every morning # 90, 05/07/2024, No Refill. Active Oral every morning; Duration: 90 05/07/2024 Active Ferrous Sulfate 325 (65 Fe)MG Ferrous Sulfate 325 (65 Fe)MG, 1 tablet Tablet daily or every other day # 30, 11/09/2019, Ref. x2. Active Oral daily or every other day; Duration: 30 *Pick strength-form from [facility] for eRX* 11/09/2019 Active PROzac 20 MG Capsule PROzac 20mg, 1 Capsule daily # 90, 12/04/2024, No Refill. Active Oral daily; Duration: 90 12/04/2024 Active Ondansetron 4 MG Tablet Disintegrating ondansetron 4mg, 1 (one) Tablet as needed for nausea # 30, 02/25/2024, No Refill. Active Oral as needed for nausea; Duration: 30 02/25/2024 Active Vitamin B-6 25 MG Tablet Vitamin B-6 25MG, 1 (one) Tablet daily # 30, 04/27/2021, No Refill. Active Oral daily; Duration: 30 04/27/2021 Active Vitamin B-12 1000 MCG Tablet Vitamin B-12 1000MCG, 1 (one) Tablet daily # 30, 04/27/2021, No Refill. Active Oral daily; Duration: 30 04/27/2021 Active Albuterol Sulfate 90mcg/actuat albuterol sulfate 90mcg/actuat, 2 Puff q 4 hours prn wheezing # 1, 01/22/2024, Ref. x2. Active inhalation q 4 hours prn wheezing; Duration: 30 *[facility]form [facility] for eRX* 01/22/2024 Active ALPRAZolam 0.5 MG Tablet ALPRAZolam 0.5mg, 1 (one) tablet two times daily, as needed FOR PANIC ATTACHS # 20, 10/12/2024, No Refill. Active Oral two times daily, as needed FOR PANIC ATTACHS; Duration: 10 DX: PANIC ATTACkS [place] Controlled Substance Reporting Database reviewed and patient found to be in compliance with prescription. 10/12/2024 Active Nurtec ODT 75mg Nurtec ODT 75mg, 1 (one) Tablet daily at onset of migraine headache # 8, 01/09/2024, Ref. x2. Active oral daily at onset of migraine headache; Duration: 30 *Reorder from [facility] for eRx and Interaction Alerts* 01/09/2024 Active cyclobenzaprine 5mg cyclobenzaprine 5mg, 1 tablet Tablet at bedtime as needed for neck tension # 90, 11/04/2024, Ref. x1. Active oral at bedtime as needed for neck tension; Duration: 90 *Reorder from [facility] for eRx and Interaction Alerts* 11/04/2024 Active Ozempic 2 mg/dose(8 mg/3 mL Ozempic( 2 mg/dose(8 mg/3 mL subcutaneous 2 mg one weekly ) Active -Hx Entry subcutaneous one weekly; Duration: 0 *Reorder from [facility] for eRx and Interaction Alerts* 11/04/2024 Active cholecalciferol (vitamin D3) 50 mcg(2,000 uni cholecalciferol (vitamin D3) 50 mcg(2,000 uni, 1 (one) Tablet daily # 30, 11/20/2022, No Refill. Active oral daily; Duration: 30 *Reorder from [facility] for eRx and Interaction Alerts* 11/20/2022 Active atorvastatin 40mg atorvastatin 40mg, 1 (one) Tablet at bedtime for high cholesterol # 90, 09/13/2024, Ref. x1. Active oral at bedtime for high cholesterol; Duration: 90 *Reorder from [facility] for eRx and Interaction Alerts* 09/13/2024 Active Social History Social History Additional Details Category Social Info Options Details Migrated Social History Migrated Social History Problem Title : No alcohol use, Problem Status : Active,, Problem Title : No drug use, Problem Status : Active,, Problem Title : Tobacco use, Problem Status : Active, Attribute Title : Never smoker Encounters Encounter Location Date Provider Diagnosis [facility] [address] [place] [address] 02/27/2025 Provider Migration Plan Of Treatment No Information Progress Notes * Georgia ARAGONDOB:[birth year] (50 yo F)Acc No.[id number]:02/27/2025 Patient: [place] CHRISTIE :1975 A ge:49 Y S ex:Female Address:[address] [place] [id number] Subjective: * Chief Complaints: * E MR-Héctor * Surgical History: Problem Title : Appendectomy, Problem Status : Active, Attribute Title : Inpatient, Problem Title : Delivery, Problem Status : Active, Attribute Title : Inpatient, Problem Title : Cholecystectomy, Problem Status : Active, Attribute Title : Inpatient, Problem Title : Dilation and Curettage of Uterus, Problem Status : Active, Attribute Title : Inpatient, Problem Title : Hernia Repair, Problem Status : Active, Attribute Title : Inpatient, Problem Title : Hysteroscopy, Problem Status : Active, Attribute Title : Outpatient, Problem Title : Kidney Stone Removal, Problem Status : Active, Attribute Title : Outpatient, * Family History: F amily History: Problem Title : Heart Disease, Problem Status : Active Attribute Title : Maternal Grandfather. * Social History: M igrated Social History: M igrated Social History: Problem Title : No alcohol use, Problem Status : Active,, Problem Title : No drug use, Problem Status : Active,, Problem Title : Tobacco use, Problem Status : Active, Attribute Title : Never smoker. * Medications: T akingAlbuterol Sulfate 90mcg/actuat albuterol sulfate 90mcg/actuat, 2 Puff q 4 hours prn wheezing # 1, 01/22/2024, Ref. x2. Active inhalation q 4 hours prn wheezing , Notes to Pharmacist: *Pick strength-form from [facility] for eRX*ALPRAZolam 0.5 MG Tablet ALPRAZolam 0.5mg, 1 (one) tablet two times daily, as needed FOR PANIC ATTACHS # 20, 10/12/2024, No Refill. Active Oral two times daily, as needed FOR PANIC ATTACHS , Notes to Pharmacist: DX: PANIC ATTACkS [place] Controlled Substance Reporting Database reviewed and patient found to be in compliance with prescription.Ferrous Sulfate 325 (65 Fe)MG Ferrous Sulfate 325 (65 Fe)MG, 1 tablet Tablet daily or every other day # 30, 11/09/2019, Ref. x2. Active Oral daily or every other day , Notes to Pharmacist: *Pick strength-form from [facility] for eRX*Ondansetron 4 MG Tablet Disintegrating ondansetron 4mg, 1 (one) Tablet as needed for nausea # 30, 02/25/2024, No Refill. Active Oral as needed for nausea PROzac 20 MG Capsule PROzac 20mg, 1 Capsule daily # 90, 12/04/2024, No Refill. Active Oral daily Vitamin B-12 1000 MCG Tablet Vitamin B-12 1000MCG, 1 (one) Tablet daily # 30, 04/27/2021, No Refill. Active Oral daily Vitamin B-6 25 MG Tablet Vitamin B-6 25MG, 1 (one) Tablet daily # 30, 04/27/2021, No Refill. Active Oral daily BreatheRite Valved MDI Chamber - Device BreatheRite Valved MDI Chamber , 1 (one) device use with albuterol inhaler as needed # 1, 05/14/2024, No Refill. Active miscellaneous use with albuterol inhaler as needed Folic Acid Xtra Folic Acid Xtra( Oral 1 (one) daily ) Active -Hx Entry Oral daily , Notes to Pharmacist: *Reorder from [facility] for eRx and Interaction Alerts*Farxiga 10 MG Tablet Farxiga 10mg, 1 Tablet every morning # 90, 05/07/2024, No Refill. Active Oral every morning FreeStyle Philip 3 Sensor - Miscellaneous FreeStyle Philip 3 Sensor( miscellaneous every 14 days ) Active -Hx Entry miscellaneous every 14 days Ajovy Autoinjector 225mg/1.5 mL Ajovy Autoinjector( 225mg/1.5 mL subcutaneous 1 every 12 weeks ) Active -Hx Entry subcutaneous every 12 weeks , Notes to Pharmacist: *Reorder from [facility] for eRx and Interaction Alerts*atorvastatin 40mg atorvastatin 40mg, 1 (one) Tablet at bedtime for high cholesterol # 90, 09/13/2024, Ref. x1. Active oral at bedtime for high cholesterol , Notes to Pharmacist: *Reorder from [facility] for eRx and Interaction Alerts*cholecalciferol (vitamin D3) 50 mcg(2,000 uni cholecalciferol (vitamin D3) 50 mcg(2,000 uni, 1 (one) Tablet daily # 30, 11/20/2022, No Refill. Active oral daily , Notes to Pharmacist: *Reorder from [facility] for eRx and Interaction Alerts*cyclobenzaprine 5mg cyclobenzaprine 5mg, 1 tablet Tablet at bedtime as needed for neck tension # 90, 11/04/2024, Ref. x1. Active oral at bedtime as needed for neck tension , Notes to Pharmacist: *Reorder from [facility] for eRx and Interaction Alerts*Nurtec ODT 75mg Nurtec ODT 75mg, 1 (one) Tablet daily at onset of migraine headache # 8, 01/09/2024, Ref. x2. Active oral daily at onset of migraine headache , Notes to Pharmacist: *Reorder from [facility] for eRx and Interaction Alerts*Ozempic 2 mg/dose(8 mg/3 mL Ozempic( 2 mg/dose(8 mg/3 mL subcutaneous 2 mg one weekly ) Active -Hx Entry subcutaneous one weekly , Notes to Pharmacist: *Reorder from [facility] for eRx and Interaction Alerts*Taking Albuterol Sulfate 90mcg/actuat albuterol sulfate 90mcg/actuat, 2 Puff q 4 hours prn wheezing # 1, 01/22/2024, Ref. x2. Active inhalation q 4 hours prn wheezing , Notes to Pharmacist: *Pick strength-form from [facility] for eRX*Taking ALPRAZolam 0.5 MG Tablet ALPRAZolam 0.5mg, 1 (one) tablet two times daily, as needed FOR PANIC ATTACHS # 20, 10/12/2024, No Refill. Active Oral two times daily, as needed FOR PANIC ATTACHS , Notes to Pharmacist: DX: PANIC ATTACkS [place] Controlled Substance Reporting Database reviewed and patient found to be in compliance with prescription.Taking Ferrous Sulfate 325 (65 Fe)MG Ferrous Sulfate 325 (65 Fe)MG, 1 tablet Tablet daily or every other day # 30, 11/09/2019, Ref. x2. Active Oral daily or every other day , Notes to Pharmacist: *Pick strength-form from [facility] for eRX*Taking Ondansetron 4 MG Tablet Disintegrating ondansetron 4mg, 1 (one) Tablet as needed for nausea # 30, 02/25/2024, No Refill. Active Oral as needed for nausea Taking PROzac 20 MG Capsule PROzac 20mg, 1 Capsule daily # 90, 12/04/2024, No Refill. Active Oral daily Taking Vitamin B-12 1000 MCG Tablet Vitamin B-12 1000MCG, 1 (one) Tablet daily # 30, 04/27/2021, No Refill. Active Oral daily Taking Vitamin B-6 25 MG Tablet Vitamin B-6 25MG, 1 (one) Tablet daily # 30, 04/27/2021, No Refill. Active Oral daily Taking BreatheRite Valved MDI Chamber - Device BreatheRite Valved MDI Chamber , 1 (one) device use with albuterol inhaler as needed # 1, 05/14/2024, No Refill. Active miscellaneous use with albuterol inhaler as needed Taking Folic Acid Xtra Folic Acid Xtra( Oral 1 (one) daily ) Active -Hx Entry Oral daily , Notes to Pharmacist: *Reorder from [facility] for eRx and Interaction Alerts*Taking Farxiga 10 MG Tablet Farxiga 10mg, 1 Tablet every morning # 90, 05/07/2024, No Refill. Active Oral every morning Taking FreeStyle Philip 3 Sensor - Miscellaneous FreeStyle Philip 3 Sensor( miscellaneous every 14 days ) Active -Hx Entry miscellaneous every 14 days Taking Ajovy Autoinjector 225mg/1.5 mL Ajovy Autoinjector( 225mg/1.5 mL subcutaneous 1 every 12 weeks ) Active -Hx Entry subcutaneous every 12 weeks , Notes to Pharmacist: *Reorder from [facility] for eRx and Interaction Alerts*Taking atorvastatin 40mg atorvastatin 40mg, 1 (one) Tablet at bedtime for high cholesterol # 90, 09/13/2024, Ref. x1. Active oral at bedtime for high cholesterol , Notes to Pharmacist: *Reorder from [facility] for eRx and Interaction Alerts*Taking cholecalciferol (vitamin D3) 50 mcg(2,000 uni cholecalciferol (vitamin D3) 50 mcg(2,000 uni, 1 (one) Tablet daily # 30, 11/20/2022, No Refill. Active oral daily , Notes to Pharmacist: *Reorder from [facility] for eRx and Interaction Alerts*Taking cyclobenzaprine 5mg cyclobenzaprine 5mg, 1 tablet Tablet at bedtime as needed for neck tension # 90, 11/04/2024, Ref. x1. Active oral at bedtime as needed for neck tension , Notes to Pharmacist: *Reorder from [facility] for eRx and Interaction Alerts*Taking Nurtec ODT 75mg Nurtec ODT 75mg, 1 (one) Tablet daily at onset of migraine headache # 8, 01/09/2024, Ref. x2. Active oral daily at onset of migraine headache , Notes to Pharmacist: *Reorder from [facility] for eRx and Interaction Alerts*Taking Ozempic 2 mg/dose(8 mg/3 mL Ozempic( 2 mg/dose(8 mg/3 mL subcutaneous 2 mg one weekly ) Active -Hx Entry subcutaneous one weekly , Notes to Pharmacist: *Reorder from [facility] for eRx and Interaction Alerts* * Allergies: A llergies Reconciled: AllergyAzithromycin *CHEMICALS*: AllergyBanana (Diagnostic): AllergyBlueberry Flavor *PHARMACEUTICAL ADJUVANTS*: AllergyErythromycin: AllergyIodine *ANTISEPTICS & DISINFECTANTS*: AllergyLactase *DIETARY PRODUCTS/DIETARY MANAGEMENT PRODU: AllergyMontelukast Sodium *ANTIASTHMATIC AND BRONCHODILAT: AllergyPenicillins: AllergyRaspberry Flavor *PHARMACEUTICAL ADJUVANTS*: AllergyShellfish-derived Products: Allergy * * Date:
--- OUTSIDE RECORDS SUMMARY | 2025-03-05 03:00 | XMS_ITS ---
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 Role Phone Benedicto Talley MD Unavailable Unavailable Migration, Provider Unavailable Unavailable REASON FOR VISIT EMR-Héctor Encounters Encounter Location Date Provider Diagnosis [facility] [address] [place] [address] 03/05/2025 Provider Migration Plan Of Treatment Medication [...] cough; Duration: 10 07/17/2020 1 *Reorder from [facility] [employer] for eRx and Interaction Alerts* Carafate 1 GM Tablet Carafate( 1GM Oral 1 (one) Tablet three times daily ) Inactive -Hx Entry Oral three times daily; Duration: 30 05/21/2019 Jdlxseollc-PAZW-Muqszovl 50-325-40 MG Capsule Blqwbntsfg-JMBO-Ddtlniku 50-325-40MG, 1 (one) Capsule every 4-6 hours [...] Duration: 7 06/21/2021 2 *Pick strength-form from [facility] for eRX* promethazine 6.25mg/5 mL promethazine 6. 25mg/5 mL, 4 Milliliter every 6 hours as needed for nausea # 360, 07/24/2022, No Refill. Inactive oral every 6 hours as needed for nausea; Duration: 5 07/24/2022 3 *Reorder from [facility] [employer] for eRx and Interaction Alerts* tamsulosin 0.4mg tamsulosin 0.4mg, 1 (one) Capsule daily # 7, 04/03/2022, No Refill. Inactive oral daily; Duration: 7 04/03/2022 3 *Reorder from [facility] [employer] for eRx and Interaction Alerts* Acetaminophen-Codeine 300-30 [...] dizziness; Duration: 0 09/06/2024 5 *[facility] Interaction [facility]* Bactrim DS 800-160MG Bactrim DS 800-160M G, 1 (one) Tablet two times daily # 10, 05/14/2021, No Refill. Inactive Oral two times daily; Duration: 5 05/14/2021 *Pick strength-form from [facility] for eRX* Ozempic 2 mg/dose(8 mg/3 mL Ozempic 2 mg/dose(8 mg/3 mL, 2 (two) milligram SQ once weekly # 9, 03/14/2023, No Refill. Inactive subcutaneous SQ once weekly; Duration: 90 03/14/2023 3 *Reorder from [facility] for eRx and Interaction Alerts* Lantus Solostar U-100 Insulin 100 unit/mL(3 mL) Lantus Solostar U-100 Insulin 100 unit/mL(3 mL), 20 units at bedtime # 10, 05/07/2024, Ref. x5. Inactive subcutaneous at bedtime; Duration: 30 05/07/2024 5 *Reorder from [facility] [employer] for eRx and Interaction Alerts* Ozempic 1 mg/dose(4 mg/3 mL Ozempic 1 mg/dose(4 mg/3 mL, 1 (one) mL weekly # 4, 05/07/2024, No Refill. Inactive subcutaneous weekly; Duration: 30 05/07/2024 5 *Reorder from [facility] for eRx and Interaction Alerts* Ozempic 0.25 mg or 0.5mg (2 mg/3 Ozempic 0.25 mg or 0.5mg (2 mg/3, 0.5 mg weekly # 3, 12/11/2023, No Refill. Inactive subcutaneous weekly; Duration: 28 12/11/2023 4 *Reorder from [facility] for eRx and Interaction Alerts* pravastatin 20mg pravastatin 20mg, 1 Tablet daily # 30, 09/12/2023, No Refill. Inactive oral daily; Duration: 30 09/12/2023 4 *Reorder from [facility] for eRx and Interaction Alerts* HumaLOG KwikPen Insulin 100unit/mL HumaLOG KwikPen Insulin 100unit/mL, 5 units subcutaneous three times a day with breakfast, lunch, and dinner # 5, 03/10/2024, Ref. x5. Inactive subcutaneous subcutaneous three times a day with breakfast, lunch, and dinner; Duration: 30 03/10/2024 4 *Reorder from [facility] for eRx and Interaction Alerts* cyclobenzaprine 5mg cyclobenzaprine 5mg, 1 (one) Tablet three times daily # 15, 04/03/2022, No Refill. Inactive oral three times daily; Duration: 5 04/03/2022 3 *Reorder from [facility] for eRx and Interaction Alerts* FreeStyle Philip [...] week; Duration: 84 03/11/2024 4 *Reorder from [facility] for eRx and Interaction Alerts* Ozempic (2 [...] 04/11/2021 1 Src Refills: 100 Dexcom G5 Streetcar Starter Kit Dexcom G5 Receive r Kit , 1 (one) Device as directed # 1, 11/10/2020, Ref. x11. Inactive as directed; Duration: 14 11/10/2020 1 DX: UNCONTROLLED INSULLIN DEPENDENT DIABETES FreeStyle Philip 2 [place] - Device FreeStyle Philip 2 [place] , 1 (one) Device as directed # [...] instead Soliqua 100-33 UNT-MCG/ML Solution Pen-injector Soliqua 108-68COS-SIM/ML, 10 units at bedtime daily for type [...] once weekly; Duration: 30 08/30/2020 *Reorder from [facility] for eRx and Interaction Alerts* Breo Ellipta [...] Duration: 30 10/28/2018 9 *Pick strength-form from [facility] for eRX* BD Pen Needle Hazel U/F [...] daily; Duration: 0 12/24/2020 *Pick strength-form from [facility] for eRX* Voltaren 1% Voltaren 1%, 2 (two) gram Apply to the affected joint(s) twice daily as needed for pain # 100, 08/11/2020, No Refill. Inactive External Apply to the affected joint(s) twice daily as needed for pain; Duration: 10 08/11/2020 1 *Pick strength-form from [facility] for eRX* Zoloft 50MG Zoloft 50MG, 1 (one) Tablet daily # 90, 07/10/2019, Ref. x3. Inactive Oral daily; Duration: 90 07/10/2019 0 *Pick strength-form from [facility] for eRX* Zofran 4MG Zofran( 4MG Oral 1 d aily ) Inactive -Hx Entry Oral daily; Duration: 0 07/06/2019 *Reorder from [facility] for eRx and Interaction Alerts* ZyrTEC-D Allergy & Congestion 5-120MG ZyrTEC-D Allergy & Congestion 5-120MG, 1 (one) Tablet daily # 20, 08/11/2018, No Refill. Inactive Oral daily; Duration: 20 08/11/2018 9 *Pick strength-form from [facility] for eRX* Vitamin B 12 500MCG Vitamin B 12( 500MCG Oral 1 tablet daily ) Inactive -Hx Entry Oral daily; Duration: 0 12/08/2020 *Pick strength-form from [facility] for eRX* traMADol HCl 50 MG Tablet [...] wheezing; Duration: 30 11/21/2020 1 *Reorder from [facility] for eRx and Interaction Alerts* Phentermine HCl [...] Duration: 7 01/04/2019 9 *Pick strength-form from [facility] for eRX* Phentermine HCl 37.5 MG Capsule [...] eating; Duration: 3 07/02/2018 9 *Reorder from [facility] for eRx and Interaction Alerts* Fluconazole 150 [...] stones; Duration: 30 02/10/2020 0 *Reorder from [facility] for eRx and Interaction Alerts* Furosemide 20mg furosemide 20mg, 1 ( one) Tablet once daily # 30, 06/07/2022, Ref. x5. Inactive oral once daily; Duration: 30 06/07/2022 4 *Pick strength-form from [facility] for eRX* Folic Acid 400MCG Folic Acid( 400MCG O ral 1 tablet daily ) Inactive -Hx Entry Oral daily; Duration: 0 12/08/2020 *Pick strength-form from [facility] for eRX* Gabapentin 300mg gabapentin( 300mg or [...] Duration: 7 11/21/2020 1 *Pick strength-form from [facility] for eRX* Progress Notes * [place] ARAGON SusanaDOB:[birth year] (50 yo F)Acc No.[id number]:03/05/2025 Patient: [place] CHRISTIE :1975 A ge:49 Y S ex:Female Address:[address] [place] [address] * Refills Stop Meclizine, 12.5mg, oral, 30, [...] needed for congestion and cough, 10 Stop Urecbmncga-SXEK-Nhuqquze Capsule, 50-325-40 MG, Oral, 15, Isdwrirais-XEMH-Wcgvhpcd 50-325-40MG, 1 (one) Capsule every 4-6 hours [...] Solution Pen-injector, 100-33 UNT-MCG/ML, Subcutaneous, 1, Soliqua [id number]-ZWS/ML, 10 units at bedtime daily for type [...] Inactive, as directed, 90 Stop Dexcom G5 Streetcar Starter Kit, 1, Dexcom G5 Streetcar Starter Kit , 1 (one) Device as directed # 1, 11/10/2020, Ref. x11. Inactive, as directed, 14 Stop FreeStyle Philip 2 [place] Device, - , 1, FreeStyle Philip 2 [place] , 1 (one) Device as directed # [...]
--- OUTSIDE RECORDS SUMMARY | 2025-03-06 03:00 | XMS_ITS ---
Author Organization [facility] Address [address] [place] [address] Care Team Providers Care Retail Reset Merchandiser Name Role Phone Benedicto Talley MD Unavailable [...] Entry Oral daily; Duration: 30 *Reorder from [email or web address] for eRx and Interaction Alerts* 04/27/2021 Active ALPRAZolam 0.5 MG Tablet ALPRAZolam 0.5mg, 1 (one) tablet two times daily, as needed FOR PANIC ATTACHS # 20, 10/12/2024, No Refill. Active Oral two times daily, as needed FOR PANIC ATTACHS; Duration: 10 DX: PANIC ATTACkS [place] Controlled Substance Reporting Database reviewed and patient found to be in compliance with prescription. 10/12/2024 Active Albuterol Sulfate 90mcg/actuat albuterol sulfate 90mcg/actuat, 2 Puff q 4 hours prn wheezing # 1, 01/22/2024, Ref. x2. Active inhalation q 4 hours prn wheezing; Duration: 30 *Pick strength-form from [employer] for eRX* 01/22/2024 Active Ondansetron 4 MG [...] other day; Duration: 30 *Pick strength-form from [employer] for eRX* 11/09/2019 Active Ozempic 2 mg/dose(8 mg/3 mL Ozempic( 2 mg/dose(8 mg/3 mL subcutaneous 2 mg one weekly ) Active -Hx Entry subcutaneous one weekly; Duration: 0 *Reorder from [facility] for eRx and Interaction Alerts* 11/04/2024 Active atorvastatin 40mg atorvastatin 40mg, 1 (one) Tablet at bedtime for high cholesterol # 90, 09/13/2024, Ref. x1. Active oral at bedtime for high cholesterol; Duration: 90 *Reorder from [facility] for eRx and Interaction Alerts* 09/13/2024 Active Ajovy Autoinjector 225mg/1.5 mL Ajovy Autoinjector( 225mg/1.5 mL subcutaneous 1 every 12 weeks ) Active -Hx Entry subcutaneous every 12 weeks; Duration: 0 *Reorder from [facility] for eRx and Interaction Alerts* 11/04/2024 Active cyclobenzaprine 5mg cyclobenzaprine 5mg, 1 tablet Tablet at bedtime as needed for neck tension # 90, 11/04/2024, Ref. x1. Active oral at bedtime as needed for neck tension; Duration: 90 *Reorder from [facility] for eRx and Interaction Alerts* 11/04/2024 Active cholecalciferol (vitamin D3) 50 mcg(2,000 uni cholecalciferol (vitamin D3) 50 mcg(2,000 uni, 1 (one) Tablet daily # 30, 11/20/2022, No Refill. Active oral daily; Duration: 30 *Reorder from [facility] for eRx and Interaction Alerts* 11/20/2022 Active Nurtec ODT 75mg Nurtec ODT 75mg, 1 (one) Tablet daily at onset of migraine headache # 8, 01/09/2024, Ref. x2. Active oral daily at onset of migraine headache; Duration: 30 *Reorder from [facility] for eRx and Interaction Alerts* [...] [facility] [address] [place] [address] 03/06/2025 Provider Migration Plan Of Treatment No Information Progress Notes * Georgia SWANSON JDOB:[birth year] (50 yo F)Acc No.[id number]:03/06/2025 Patient: Georgia CHRISTIE :1975 A ge:49 Y S ex:Female Address:[address] [place] [id number] Subjective: * Chief Complaints: * E MR-Héctor [...] , Notes to Pharmacist: *Pick strength-form from [employer] for eRX*ALPRAZolam 0.5 MG Tablet ALPRAZolam 0.5mg, 1 (one) tablet two times daily, as needed FOR PANIC ATTACHS # 20, 10/12/2024, No Refill. Active Oral two times daily, as needed FOR PANIC ATTACHS , Notes to Pharmacist: DX: PANIC ATTACkS [place] Cont[place] Substance Reporting Database reviewed and patient found to be in compliance with prescription.Ferrous Sulfate 325 (65 Fe)MG Ferrous Sulfate 325 (65 Fe)MG, 1 tablet Tablet daily or every other day # 30, 11/09/2019, Ref. x2. Active Oral daily or every other day , Notes to Pharmacist: *Pick strength-form from [employer] for eRX*Ondansetron 4 MG Tablet Disintegrating ondansetron [...] daily , Notes to Pharmacist: *Reorder from [employer] for eRx and Interaction Alerts*Farxiga 10 MG [...] weeks , Notes to Pharmacist: *Reorder from [employer] for eRx and Interaction Alerts*atorvastatin 40mg atorvastatin 40mg, 1 (one) Tablet at bedtime for high cholesterol # 90, 09/13/2024, Ref. x1. Active oral at bedtime for high cholesterol , Notes to Pharmacist: *Reorder from [facility] for eRx and Interaction Alerts*cholecalciferol (vitamin D3) 50 mcg(2,000 uni cholecalciferol (vitamin D3) 50 mcg(2,000 uni, 1 (one) Tablet daily # 30, 11/20/2022, No Refill. Active oral daily , Notes to Pharmacist: *Reorder from [facility] for eRx and Interaction Alerts*cyclobenzaprine 5mg cyclobenzaprine 5mg, 1 tablet Tablet at bedtime as needed for neck tension # 90, 11/04/2024, Ref. x1. Active oral at bedtime as needed for neck tension , Notes to Pharmacist: *Reorder from [facility] for eRx and Interaction Alerts*Nurtec ODT 75mg Nurtec ODT 75mg, 1 (one) Tablet daily at onset of migraine headache # 8, 01/09/2024, Ref. x2. Active oral daily at onset of migraine headache , Notes to Pharmacist: *Reorder from [facility] for eRx and Interaction Alerts*Ozempic 2 mg/dose(8 mg/3 mL Ozempic( 2 mg/dose(8 mg/3 mL subcutaneous 2 mg one weekly ) Active -Hx Entry subcutaneous one weekly , Notes to Pharmacist: *Reorder from [facility] for eRx and Interaction Alerts*Taking Albuterol Sulfate 90mcg/actuat albuterol sulfate 90mcg/actuat, 2 Puff q 4 hours prn wheezing # 1, 01/22/2024, Ref. x2. Active inhalation q 4 hours prn wheezing , Notes to Pharmacist: *Pick strength-form from [facility] for eRX*Taking ALPRAZolam 0.5 MG Tablet ALPRAZolam 0.5mg, 1 (one) tablet two times daily, as needed FOR PANIC ATTACHS # 20, 10/12/2024, No Refill. Active Oral two times daily, as needed FOR PANIC ATTACHS , Notes to Pharmacist: DX: PANIC ATTACkS [place] Controlled Substance Reporting Database reviewed and patient found to be in compliance with prescription.Taking Ferrous Sulfate 325 (65 Fe)MG Ferrous Sulfate 325 (65 Fe)MG, 1 tablet Tablet daily or every other day # 30, 11/09/2019, Ref. x2. Active Oral daily or every other day , Notes to Pharmacist: *Pick strength-form from [facility] for eRX*Taking Ondansetron 4 MG [...] , Notes to Pharmacist: *Reorder from [facility] for eRx and Interaction Alerts*Taking [...] , Notes to Pharmacist: *Reorder from [facility] for eRx and Interaction Alerts*Taking atorvastatin 40mg atorvastatin 40mg, 1 (one) Tablet at bedtime for high cholesterol # 90, 09/13/2024, Ref. x1. Active oral at bedtime for high cholesterol , Notes to Pharmacist: *Reorder from [facility] for eRx and Interaction Alerts*Taking cholecalciferol (vitamin D3) 50 mcg(2,000 uni cholecalciferol (vitamin D3) 50 mcg(2,000 uni, 1 (one) Tablet daily # 30, 11/20/2022, No Refill. Active oral daily , Notes to Pharmacist: *Reorder from [facility] for eRx and Interaction Alerts*Taking cyclobenzaprine 5mg cyclobenzaprine 5mg, 1 tablet Tablet at bedtime as needed for neck tension # 90, 11/04/2024, Ref. x1. Active oral at bedtime as needed for neck tension , Notes to Pharmacist: *Reorder from [facility] for eRx and Interaction Alerts*Taking Nurtec ODT 75mg Nurtec ODT 75mg, 1 (one) Tablet daily at onset of migraine headache # 8, 01/09/2024, Ref. x2. Active oral daily at onset of migraine headache , Notes to Pharmacist: *Reorder from [facility] for eRx and Interaction Alerts*Taking Ozempic 2 mg/dose(8 mg/3 mL Ozempic( 2 mg/dose(8 mg/3 mL subcutaneous 2 mg one weekly ) Active -Hx Entry subcutaneous one weekly , Notes to Pharmacist: *Reorder from [facility] for eRx and Interaction Alerts* * Allergies: A llergies Reconciled: AllergyAzithromycin *CHEMICALS*: AllergyBanana (Diagnostic) *DIAGNOSTIC PRODUCTS*: AllergyBlueberry Flavor *PHARMACEUTICAL ADJUVANTS*: AllergyErythromycins: AllergyIodine *ANTISEPTICS & DISINFECTANTS*: AllergyLactase *DIETARY PRODUCTS/DIETARY MANAGEMENT PRODU: AllergyMontelukast Sodium *ANTIASTHMATIC AND BRONCHODILAT: AllergyPenicillins: AllergyRaspberry Flavor *PHARMACEUTICAL ADJUVANTS*: AllergyShellfish: Allergy * * Date:
--- OUTSIDE RECORDS SUMMARY | 2025-05-14 03:00 | XMS_ITS ---
Author Organization [facility] are Address [address] [place] [address] Care Team Providers Care De Icer Kit Assembler Name Role Phone MRS. Sunni Ramon Primary Care Provider Benedicto Talley MD Unavailable Unavailable Migration, Provider Unavailable Unavailable REASON FOR VISIT [facility] [place] Encounter Location Date Provider Diagnosis [facility] [address] [place] [address] 05/14/2025 Provider Migration Plan Of Treatment Medication [...] eating; Duration: 3 07/02/2018 9 *Reorder from [facility] for eRx and Interaction Alerts* Lisinopril 5 [...] daily; Duration: 0 12/08/2020 *Pick strength-form from [facility] for eRX* Furosemide 20mg furosemide 20mg, 1 ( one) Tablet once daily # 30, 06/07/2022, Ref. x5. Inactive oral once daily; Duration: 30 06/07/2022 4 *Pick strength-form from [facility] for eRX* Gabapentin 300mg gabapentin( 300mg or al 1 three times daily ) Inactive -Hx Entry oral three times daily; Duration: 0 10/02/2024 5 *Pick strength-form from [facility] for eRX* Depakote 500 MG Tablet Delayed [...] Duration: 7 11/21/2020 1 *Pick strength-form from [facility] for eRX* Flomax 0.4MG Flomax 0.4MG, 1 (one ) Capsule daily as needed for kidney stones # 30, 02/10/2020, Ref. x1. Inactive Oral daily as needed for kidney stones; Duration: 30 02/10/2020 0 *Reorder from [facility] for eRx and Interaction Alerts* Cyclobenzaprine HCl [...] daily; Duration: 5 05/14/2021 *Pick strength-form from [facility] for eRX* Benzonatate 200MG Benzonatate 200MG, 1 (one) Capsule every 8 hours prn cough # 21, 06/21/2021, No Refill. Inactive Oral every 8 hours prn cough; Duration: 7 06/21/2021 2 *Pick strength-form from [employer] for eRX* Bromfed DM 30-2-10MG/5ML Bromfed DM 30-2-10MG/5ML, 10 Milliliter every 8 hours as needed for congestion and cough # 200, 07/17/2020, No Refill. Inactive Oral every 8 hours as needed for congestion and cough; Duration: 10 07/17/2020 1 *Reorder from [facility] for eRx and Interaction Alerts* Vylrtujhwd-OCGQ-Fiszouvd 50-325-40 MG Capsule Mbloykqxdo-FEDS-Gkegnlvw 50-325-40MG, 1 (one) Capsule every 4-6 hours [...] weekly; Duration: 30 05/07/2024 5 *Reorder from [facility] for eRx and Interaction Alerts* Pravastatin 20mg pravastatin 20mg, 1 Tablet daily # 30, 09/12/2023, No Refill. Inactive oral daily; Duration: 30 09/12/2023 4 *Reorder from [facility] for eRx and Interaction Alerts* promethazine 6.25mg/5 mL promethazine 6. 25mg/5 mL, 4 Milliliter every 6 hours as needed for nausea # 360, 07/24/2022, No Refill. Inactive oral every 6 hours as needed for nausea; Duration: 5 07/24/2022 3 *Reorder from [facility] for eRx and Interaction Alerts* tamsulosin 0.4mg tamsulosin 0.4mg, 1 (one) Capsule daily # 7, 04/03/2022, No Refill. Inactive oral daily; Duration: 7 04/03/2022 3 *Reorder from [employer] for eRx and Interaction Alerts* Meclizine 12.5mg meclizine 12.5mg, 1 Tablet 2 to 3 times per day as needed for dizziness # 30, 09/06/2024, No Refill. Inactive oral 2 to 3 times per day as needed for dizziness; Duration: 0 09/06/2024 5 *Reorder from [employer] for eRx and Interaction Alerts* HumaLOG KwikPen Insulin 100unit/mL [employer] KwikPen Insulin 100unit/mL, 5 units subcutaneous three times a day with breakfast, lunch, and dinner # 5, 03/10/2024, Ref. x5. Inactive subcutaneous subcutaneous three times a day with breakfast, lunch, and dinner; Duration: 30 03/10/2024 4 *Reorder from [facility] for eRx and Interaction Alerts* Lantus Solostar U-100 Insulin 100 unit/mL(3 mL) Lantus Solostar U-100 Insulin 100 unit/mL(3 mL), 20 units at bedtime # 10, 05/07/2024, Ref. x5. Inactive subcutaneous at bedtime; Duration: 30 05/07/2024 5 *Reorder from [facility] for eRx and Interaction Alerts* Ozempic 2 mg/dose(8 mg/3 mL Ozempic 2 mg/dose(8 mg/3 mL, 2 (two) milligram SQ once weekly # 9, 03/14/2023, No Refill. Inactive subcutaneous SQ once weekly; Duration: 90 03/14/2023 3 *Reorder from [facility] for eRx and Interaction Alerts* Ozempic 0.25 mg or 0.5mg (2 mg/3 Ozempic 0.25 mg or 0.5mg (2 mg/3, 0.5 mg weekly # 3, 12/11/2023, No Refill. Inactive subcutaneous weekly; Duration: 28 12/11/2023 4 *Reorder from [facility] for eRx and Interaction Alerts* cyclobenzaprine 5mg cyclobenzaprine 5mg, 1 (one) Tablet three times daily # 15, 04/03/2022, No Refill. Inactive oral three times daily; Duration: 5 04/03/2022 3 *Reorder from [facility] for eRx and Interaction Alerts* Dexcom G5 Behavioral Modification Assistant Kit Dexcom G5 Receive r Kit , 1 (one) Device as directed # 1, 11/10/2020, Ref. x11. Inactive as directed; Duration: 14 11/10/2020 1 DX: UNCONTROLLED INSULLIN DEPENDENT DIABETES FreeStyle Philip 2 [place] - Device FreeStyle Philip 2 [place] , 1 (one) Device as directed # [...] week; Duration: 84 03/11/2024 4 *Reorder from [facility] for eRx and Interaction Alerts* Dexcom G5 [...] for B-Cise was sent instead *Reorder from [facility] for eRx and Interaction Alerts* Trelegy Ellipta 100-62.5-25 MCG/ACT Aerosol Powder Breath Activated Trelegy Ellipta 100-62.5-25mcg, 1 inhalation daily # 28, 03/10/2024, Ref. x1. Inactive Inhalation daily; Duration: 28 03/10/2024 5 BD Pen Needle Micro U/F BD Pen Needle Mi microbiology teacher U/F , 1 (one) needle to be [...] 0 Soliqua 100-33 UNT-MCG/ML Solution Pen-injector Soliqua [id number]-[id number]/ML, 10 units at bedtime daily for type [...] Duration: 30 10/28/2018 9 *Pick strength-form from [facility] for eRX* Bydureon 2MG Bydureon 2MG, 2 (two ) mg once weekly # 4, 08/30/2020, Ref. x5. Inactive Subcutaneous once weekly; Duration: 30 08/30/2020 *Reorder from [facility] for eRx and Interaction Alerts* metFORMIN HCl [...] needed; Duration: 30 06/14/2019 0 *Reorder from [facility] for eRx and Interaction Alerts* ZyrTEC-D Allergy & Congestion 5-120MG ZyrTEC-D Allergy & Congestion 5-120MG, 1 (one) Tablet daily # 20, 08/11/2018, No Refill. Inactive Oral daily; Duration: 20 08/11/2018 9 *Pick strength-form from [facility] for eRX* Vitamin B 12 500MCG Vitamin B 12( 500MCG Oral 1 tablet daily ) Inactive -Hx Entry Oral daily; Duration: 0 12/08/2020 *Pick strength-form from [facility] for eRX* B-6 100MG B-6( 100MG Oral 1 da geoff ) Inactive -Hx Entry Oral daily; Duration: 0 12/24/2020 *Pick strength-form from [employer] for eRX* Dulera 100-5 MCG/ACT Aerosol Dulera [...] Duration: 10 08/11/2020 1 *Pick strength-form from [employer] for eRX* Zofran 4MG Zofran( 4MG Oral 1 d aily ) Inactive -Hx Entry Oral daily; Duration: 0 07/06/2019 *Reorder from [facility] for eRx and Interaction Alerts* Zoloft 50 [...] Duration: 0 07/22/2018 9 *Pick strength-form from [employer] for eRX* Ventolin HFA 108 (90 Base) [...] wheezing; Duration: 30 11/21/2020 1 *Reorder from [employer] for eRx and Interaction Alerts* Promethazine HCl [...] daily; Duration: 0 07/16/2018 *Pick strength-form from [employer] for eRX* Phentermine HCl 37.5 MG Tablet [...] Notes * SWANSONGeorgiaDOB:[birth year] (50 yo F)Acc No.[id number]:05/14/2025 Patient: [place] CHRISTIE :1975 A ge:49 Y S ex:Female Address:[address] [place] [address] * Refills Stop Meclizine, 12.5mg, oral, 30, [...] needed for congestion and cough, 10 Stop Cvciadhesl-VMNA-Lconlpmq Capsule, 50-325-40 MG, Oral, 15, Qvrmsgzkap-SAWR-Qwqsydqm 50-325-40MG, 1 (one) Capsule every 4-6 hours [...] Solution Pen-injector, 100-33 UNT-MCG/ML, Subcutaneous, 1, Soliqua [id number]/ML, 10 units at bedtime daily for type [...] Inactive, as directed, 90 Stop Dexcom G5 Behavioral Modification Assistant Kit, 1, Dexcom G5 Behavioral Modification Assistant Kit , 1 (one) Device as directed # 1, 11/10/2020, Ref. x11. Inactive, as directed, 14 Stop FreeStyle Philip 2 [place] Device, - , 1, FreeStyle Philip 2 [place] , 1 (one) Device as directed # [...]
--- OUTSIDE RECORDS SUMMARY | 2025-05-15 03:00 | XMS_ITS ---
Author Organization [facility] [employer] are Address [address] [place] [address] Care Team Providers Care Angle Shear Operator Name Role Phone MRS. Sunni Ramon Primary Care Provider [phone] Benedicto Talley MD Unavailable Unavailable Migration, Provider [...] for neck tension; Duration: 90 *Reorder from [facility] for eRx and Interaction Alerts* 11/04/2024 Active cholecalciferol (vitamin D3) 50 mcg(2,000 uni cholecalciferol (vitamin D3) 50 mcg(2,000 uni, 1 (one) Tablet daily # 30, 11/20/2022, No Refill. Active oral daily; Duration: 30 *Reorder from [facility] for eRx and Interaction Alerts* 11/20/2022 Active Ozempic 2 mg/dose(8 mg/3 mL Ozempic( 2 mg/dose(8 mg/3 mL subcutaneous 2 mg one weekly ) Active -Hx Entry subcutaneous one weekly; Duration: 0 *Reorder from [facility] for eRx and Interaction Alerts* 11/04/2024 Active Nurtec ODT 75mg Nurtec ODT 75mg, 1 (one) Tablet daily at onset of migraine headache # 8, 01/09/2024, Ref. x2. Active oral daily at onset of migraine headache; Duration: 30 *Reorder from [facility] for eRx and Interaction Alerts* 01/09/2024 Active atorvastatin 40mg atorvastatin 40mg, 1 (one) Tablet at bedtime for high cholesterol # 90, 09/13/2024, Ref. x1. Active oral at bedtime for high cholesterol; Duration: 90 *Reorder from [facility] for eRx and Interaction Alerts* 09/13/2024 Active [...] Entry Oral daily; Duration: 30 *Reorder from [facility] for eRx and Interaction Alerts* 04/27/2021 Active FreeStyle Philip 3 Sensor - Miscellaneous FreeStyle Philip 3 Sensor( miscellaneous every 14 days ) Active -Hx Entry miscellaneous every 14 days; Duration: 0 11/04/2024 Active Ajovy Autoinjector 225mg/1.5 mL Ajovy Autoinjector( 225mg/1.5 mL subcutaneous 1 every 12 weeks ) Active -Hx Entry subcutaneous every 12 weeks; Duration: 0 *Reorder from [facility] for eRx and Interaction Alerts* 11/04/2024 [...] other day; Duration: 30 *Pick strength-form from [facility] for eRX* 11/09/2019 Active Vitamin B-12 1000 MCG Tablet Vitamin B-12 1000MCG, 1 (one) Tablet daily # 30, 04/27/2021, No Refill. Active Oral daily; Duration: 30 04/27/2021 Active PROzac 20mg PROzac 20mg, 1 Capsule daily # 90, 12/04/2024, No Refill. Active oral daily; Duration: 90 *Reorder from [facility] for eRx and Interaction Alerts* 12/04/2024 Active Vitamin B-6 25 MG Tablet Vitamin B-6 25MG, 1 (one) Tablet daily # 30, 04/27/2021, No Refill. Active Oral daily; Duration: 30 04/27/2021 Active Albuterol Sulfate 90mcg/actuat albuterol sulfate 90mcg/actuat, 2 Puff q 4 hours prn wheezing # 1, 01/22/2024, Ref. x2. Active inhalation q 4 hours prn wheezing; Duration: 30 *Pick strength-form from [facility] for eRX* 01/22/2024 Active ALPRAZolam 0.5 MG Tablet ALPRAZolam 0.5mg, 1 (one) tablet two times daily, as needed FOR PANIC ATTACHS # 20, 10/12/2024, No Refill. Active Oral two times daily, as needed FOR PANIC ATTACHS; Duration: 10 DX: PANIC ATTACkS [place] Controlled Substance Reporting Database reviewed and patient [...] smoker Encounters Encounter Location Date Provider Diagnosis [facility] [address] [facility] [place] [address] 05/15/2025 Provider Migration Plan Of Treatment No Information Progress Notes * Georgia ARAGONDOB:[birth year] (50 yo F)Acc No.[id number]:05/15/2025 Patient: Georgia CHRISTIE :1975 A ge:49 Y S ex:Female Address:[address] [place] [address] Subjective: * Chief Complaints: * E MR-Héctor [...] , Notes to Pharmacist: *Pick strength-form from [facility] for eRX*ALPRAZolam 0.5 MG Tablet ALPRAZolam 0.5mg, 1 (one) tablet two times daily, as needed FOR PANIC ATTACHS # 20, 10/12/2024, No Refill. Active Oral two times daily, as needed FOR PANIC ATTACHS , Notes to Pharmacist: DX: PANIC ATTACkS [place] Controlled Substance Reporting Database reviewed and patient found to be in compliance with prescription.Ferrous Sulfate 325 (65 Fe)MG Ferrous Sulfate 325 (65 Fe)MG, 1 tablet Tablet daily or every other day # 30, 11/09/2019, Ref. x2. Active Oral daily or every other day , Notes to Pharmacist: *Pick strength-form from [facility] for eRX*Ondansetron 4 MG Tablet Disintegrating ondansetron 4mg, 1 (one) Tablet as needed for nausea # 30, 02/25/2024, No Refill. Active Oral as needed for nausea PROzac 20mg PROzac 20mg, 1 Capsule daily # 90, 12/04/2024, No Refill. Active oral daily , Notes to Pharmacist: *Reorder from [facility] for eRx and Interaction Alerts*Vitamin B-12 1000 [...] daily , Notes to Pharmacist: *Reorder from [facility] for eRx and Interaction Alerts*Farxiga 10 MG [...] weeks , Notes to Pharmacist: *Reorder from [facility] for eRx and Interaction Alerts*atorvastatin 40mg atorvastatin 40mg, 1 (one) Tablet at bedtime for high cholesterol # 90, 09/13/2024, Ref. x1. Active oral at bedtime for high cholesterol , Notes to Pharmacist: *Reorder from [facility] for eRx and Interaction Alerts*cholecalciferol (vitamin D3) 50 mcg(2,000 uni cholecalciferol (vitamin D3) 50 mcg(2,000 uni, 1 (one) Tablet daily # 30, 11/20/2022, No Refill. Active oral daily , Notes to Pharmacist: *Reorder from [facility] for eRx and Interaction Alerts*cyclobenzaprine 5mg cyclobenzaprine 5mg, 1 tablet Tablet at bedtime as needed for neck tension # 90, 11/04/2024, Ref. x1. Active oral at bedtime as needed for neck tension , Notes to Pharmacist: *Reorder from [facility] for eRx and Interaction Alerts*Nurtec ODT 75mg Nurtec ODT 75mg, 1 (one) Tablet daily at onset of migraine headache # 8, 01/09/2024, Ref. x2. Active oral daily at onset of migraine headache , Notes to Pharmacist: *Reorder from [facility] for eRx and Interaction Alerts*Ozempic 2 mg/dose(8 mg/3 mL Ozempic( 2 mg/dose(8 mg/3 mL subcutaneous 2 mg one weekly ) Active -Hx Entry subcutaneous one weekly , Notes to Pharmacist: *Reorder from [facility] for eRx and Interaction Alerts*Taking Albuterol Sulfate 90mcg/actuat albuterol sulfate 90mcg/actuat, 2 Puff q 4 hours prn wheezing # 1, 01/22/2024, Ref. x2. Active inhalation q 4 hours prn wheezing , Notes to Pharmacist: *Pick strength-form from [facility] for eRX*Taking ALPRAZolam 0.5 MG Tablet ALPRAZolam 0.5mg, 1 (one) tablet two times daily, as needed FOR PANIC ATTACHS # 20, 10/12/2024, No Refill. Active Oral two times daily, as needed FOR PANIC ATTACHS , Notes to Pharmacist: DX: PANIC ATTACkS [place] Controlled Substance Reporting Database reviewed and patient found to be in compliance with prescription.Taking Ferrous Sulfate 325 (65 Fe)MG Ferrous Sulfate 325 (65 Fe)MG, 1 tablet Tablet daily or every other day # 30, 11/09/2019, Ref. x2. Active Oral daily or every other day , Notes to Pharmacist: *Pick strength-form from [facility] for eRX*Taking Ondansetron 4 MG Tablet Disintegrating ondansetron 4mg, 1 (one) Tablet as needed for nausea # 30, 02/25/2024, No Refill. Active Oral as needed for nausea Taking PROzac 20mg PROzac 20mg, 1 Capsule daily # 90, 12/04/2024, No Refill. Active oral daily , Notes to Pharmacist: *Reorder from [facility] for eRx and Interaction Alerts*Taking Vitamin B-12 [...] daily , Notes to Pharmacist: *Reorder from [facility] for eRx and Interaction Alerts*Taking Farxiga 10 [...] weeks , Notes to Pharmacist: *Reorder from [facility] for eRx and Interaction Alerts*Taking atorvastatin 40mg atorvastatin 40mg, 1 (one) Tablet at bedtime for high cholesterol # 90, 09/13/2024, Ref. x1. Active oral at bedtime for high cholesterol , Notes to Pharmacist: *Reorder from [facility] for eRx and Interaction Alerts*Taking cholecalciferol (vitamin D3) 50 mcg(2,000 uni cholecalciferol (vitamin D3) 50 mcg(2,000 uni, 1 (one) Tablet daily # 30, 11/20/2022, No Refill. Active oral daily , Notes to Pharmacist: *Reorder from [facility] for eRx and Interaction Alerts*Taking cyclobenzaprine 5mg cyclobenzaprine 5mg, 1 tablet Tablet at bedtime as needed for neck tension # 90, 11/04/2024, Ref. x1. Active oral at bedtime as needed for neck tension , Notes to Pharmacist: *Reorder from [facility] for eRx and Interaction Alerts*Taking Nurtec ODT 75mg Nurtec ODT 75mg, 1 (one) Tablet daily at onset of migraine headache # 8, 01/09/2024, Ref. x2. Active oral daily at onset of migraine headache , Notes to Pharmacist: *Reorder from [facility] for eRx and Interaction Alerts*Taking Ozempic 2 mg/dose(8 mg/3 mL Ozempic( 2 mg/dose(8 mg/3 mL subcutaneous 2 mg one weekly ) Active -Hx Entry subcutaneous one weekly , Notes to Pharmacist: *Reorder from [facility] for eRx and Interaction Alerts* * Allergies: A llergies Reconciled: AllergyAzithromycin: AllergyAzithromycin *CHEMICALS*: AllergyBanana (Diagnostic): AllergyBlueberry Flavor: AllergyBlueberry Flavor *PHARMACEUTICAL ADJUVANTS*: AllergyErythromycin: AllergyIodine: AllergyIodine *ANTISEPTICS & DISINFECTANTS*: AllergyLactase *DIETARY PRODUCTS/DIETARY MANAGEMENT PRODU: AllergyMontelukast Sodium *ANTIASTHMATIC AND BRONCHODILAT: AllergyPenicillins: AllergyRaspberry Flavor *PHARMACEUTICAL ADJUVANTS*: AllergyShellfish: AllergyShellfish-derived Products: Allergy * * Date:
--- OUTSIDE RECORDS SUMMARY | 2025-06-06 03:30 | XMS_ITS ---
Author Organization [facility] are Address [address] [place] [address] Care Team Providers Care Burnt Lime Drawer Name Role Phone Tristen MRS. Almaguerica Primary Care Provider [phone] Benedicto Talley MD Unavailable Unavailable All Meade [phone] REASON FOR VISIT follow up Encounters Encounter Location Date Provider Diagnosis [facility] [address] [place] [address] 06/06/2025 All Meade Plan Of Treatment No Information Progress Notes * [place] ARAGONDOB:[birth year] (50 yo F)Acc No.[id number]:06/06/2025 Progress Notes Patient: Geo godinez [place] Susana Provider: Samantha Meade NP :1975 A ge:50 Y S ex:Female Date:06/06/2025 Address:[address] [place], [place] [id number] Pcp:MRS. Moeller Anastacia Ramon Subjective: * Chief Complaints: * F ollow up Billing Information: * Procedure Codes: * Electronic signature of All Meade NP on 06/24/2025 at 07:19 PM EST Sign off status: Pending * Provider: Samantha Meade NP Date: 08/07/2024 Generated for Xenia valdez/Fabio/eTransmitting on: 08/25/2024 07:19 PM EST
--- OUTSIDE RECORDS SUMMARY | 2025-06-24 18:17 | XMS_ITS | Clinical Summary ---
Author Organization [facility] [employer] Address [address] [place] [address] Care Team Providers Care Director Of Religious Life Name Role Phone Unassigned, Doctor Primary Care [...] prosecute any alcohol or drug abuse patient. [facility] [employer] Allergies Active Allergy Reactions Criticality Noted Date [...] monitor ordered. 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 Holter report: NSR, sinus arrhythmia with [...] in Comments Son Ben Worrell lives in [place] Relation Name Status Comments Brother Alive Daughter [...] Completed 07/11/2015 Medical Devices Implanted Type Area Digital Media Designer Device Identifier Shelf Expiration Date Model / Serial / Lot Stent Uret Contour [id number] - [id number] - [id number] Implanted:Qty: 1 on 04/16/2018 by Jefe Veliz MD at [facility] Left: [employer] 12/28/2020 [id number] / [id number] / [id number] Procedures Procedure Name Priority Date/Time Associated Diagnosis [...] - 5.6 % 07/20/2024 6:53 PM EST [facility] [employer]) Est Avg Glucose 134 mg/dL 6:53 PM EST [facility]ACCR[facility] BY [facility] [employer] [facility]) Blood BLOOD SPECIMEN / Unknown Venipuncture / Unknown 07/19/2024 11:25 PM EST 07/19/2024 11:30 PM EST Narrative [facility]CR[facility] BY [facility] [employer] [facility] [facility]) - 07/20/2024 6:53 PM EST This assay has been cleared by the FDA to be used as an aid in the diagnosis of diabetes and in identifying patients who may be at risk for developing diabetes. The threshold for diagnosis of diabetes is an HA1c result > or = 6.5%. Lanre Morrison MD LAB BLOOD ORDERABLES Zulay conley Result [facility] (ACCREDITED [facility]) [address] [place] [address] * PAP, SUREPATH SCREEN (11/01/2021 12:43 PM EDT) Case Report GY - Gynecologic Cytology Case: [id number] Authorizing Provider: Mehnaz Gordon MD Collected: 11/01/2021 1243 Ordering Location: [facility] Received: 11/01/2021 1243 First Screen: Ángela Rust CT (ASCP) Specimen: Pap, SurePath Screen, Endocervical/Ecto cervical 11/05/2021 10:55 AM [facility] (ACCREDITED BY [facility] [employer] [facility] [employer] [facility] S) Clinical Information LMP 07/31/2021 Cryotherapy/Laser Therapy No Cycles Irregular Radiation/Chemoth erapy No No /Lactat ing No Abnormal Bleeding Yes Abnormal Pap History No Hormones No Previous Dx Mid Level Net Developer Malignancy No 11/05/2021 10:55 AM [facility] (ACCREDITED BY [facility] [employer] [facility] [employer] [facility]) Specimen Adequacy Satisfactory for evaluation, endocervical/carson sformation zone component present 11/05/2021 10:55 AM [facility] (ACCREDITED BY [facility] [facility]) Interpretation Negative for intraepithelial lesion or malignancy 11/05/2021 10:55 AM [facility] ([facility]CR[facility] BY [facility] [facility] S) at 1054 EDT Comments Acute inflammation. 11/05/2021 10:55 AM [facility] (ACCREDITED BY [facility] [facility]) Pap Disclaimer The Pap test is a screening test which carries an inherent false negative rate. These test results should be correlated with the patient's clinical findings and history. This Pap test was processed using an automated screening system. 11/05/2021 10:55 AM [facility] (ACCREDITED BY [facility] OF [facility] S) Pap-Mid Level Net Developer CERVIX UTERI STRUCTURE / Unknown 11/01/2021 12:43 PM EDT 11/01/2021 12:43 PM EDT us Mehnaz Gordon MD LAB PATHOLOGY/CYTOLOGY ORDER BUFFY Final Result [facility] (ACCREDITED BY [facility] [employer] [facility]) [address] [id number] * BREAST MAMMOGRAM 3D GRZEGORZ SCREENING BILATERAL [...] 21, 2020, TOMOSYNTHESIS BILATERAL DIAGNOSTIC performed at [facility]. The breast tissue is almost entirely fat. [...] 21, 2020, TOMOSYNTHESIS BILATERAL DIAGNOSTIC performed at [facility]. The breast tissue is almost entirely fat. There are benign appearing calcifications in both breasts. There is no other significant finding on the study in either breast. BI-RADS: Benign (BIRADS 2) Recommendation: Mammogram of both breasts in [facility] year[facility] RADIOLOGY MAMMOGRAPHY ORDERABLES Final [...] a more specific supplemental or PCR testing. [facility] w/Reflex to Verification test #191182. Result Narrative [facility] Comment: TESTING PERFORMED BY: - [address] [address] Director: Luther Fields MD 07/11/2015 12:1 3 PM EST 07/11/2015 8:32 PM EST Naila Vallejo MD LAB BLOOD ORDERABLES Fin al Result [facility] [address] [place] [address] NOT ON FILE [facility] 01 N/A from [...] 6:51 PM 04/05/2019 8:01 PM Care Teams Director Of Religious Life Relationship Specialty Start Date End Date Unassigned, [...] prosecute any alcohol or drug abuse patient. [facility])
--- OUTSIDE RECORDS SUMMARY | 2025-06-24 18:17 | XMS_ITS | Encounter Summary ---
Author Organization [facility] Address [address] [place] [address] Care Team Providers Care Patrol Officer Name Role Phone Aislinn Merlos Primary Care Provider [phone] Encounter Details Date Type Department Care Team (Late st Contact Info) Description 10/07/2024 OnBase Documentation On File [address] [place] [address] Social History Tobacco Use Types Packs/Day Years Used Date Smoking Tobacco: Never Smokeless Tobacco: Never Alcohol Use Standard Drinks/Week Comments Not Currently 0 (1 standard drink = 0.6 oz pur e alcohol) [facility] Utilities Answer Date Recorded In the past [...] Recorded Patient Health Questionnaire-2 Score 6 05/31/2024 [facility] [place] of Occupat ional Health - Occupational Stress [...] were you homeless or living in a [place] (including now)? No 05/31/2024 Interpersonal Safety Answer [...] Info) Description 10/25/2025 11:00 AM EDT Telemedicine [facility] [address] [place] [address] Christophe Crowley NP [address] [place] [address] Follow-up disposition: Return in about 6 months (around 10/25/2025) for Christophe, video visit, Tuesdays. documented as of this encounter Visit Diagnoses Not on filedocumented in this encounter Care Teams Patrol Officer Relationship Specialty Start Date End Date Aislinn Merlos PA [address] [place] [address] PCP - General 08/13/21 documented as of this encounter
--- OUTSIDE RECORDS SUMMARY | 2025-06-24 18:18 | XMS_ITS | Patient Health Record ---
Author Organization [facility] Address [address] [place] [address] Care Team Providers Care Livestock Trader Name Role Phone Sunni Ramon Primary Care Provider Benoit Chance [phone] Allergies Allergen (clinical drug ingredient) Drug/Non Drug [...] Status W/U Status Risk Notes Problem Cervicalgia (80432382) Cervicalgia (M54.2) Active confirmed Problem Lumbar radiculopathy (387394004) Radiculopathy, lumbar region (M54.16) Active confirmed Problem Cervical radiculopathy (13338943) Cervical radiculopathy (M54.12) Active confirmed Problem Neck pain (76663910) Neck pain (M54.2) Active confirmed Problem Post-concussion syndrome (43523150) Post-concussion syndrome (F07.81) Active confirmed Plan Of Treatment No Information Insurance Providers Payer Name Payer Address Payer Phone Subscriber Number Group Number Insured Name Patient Relationship to Insured Coverage Start Date Coverage End Date [employer] [address] [address] [place] [address] [id number] [id number] [place] Self - patient [...]
--- OUTSIDE RECORDS SUMMARY | 2025-06-24 18:19 | XMS_ITS | Clinical Summary ---
Author Organization [facility] Address [address] [place] [address] Care Team Providers Care Cruise Director Name Role Phone Aislinn Merlos Primary Care Provider [phone] Allergies Active Allergy Reactions Criticality Noted Date [...] complication, without long-term current use of insulin ([facility]) Inject 0.5 mLs (7.5 mg total) subcutaneously every 7 (seven) days 2 mL 3 04/26/20 25 Active dapagliflozin propanediol (FARXIGA) 10 mg tabletIndications :Type 2 diabetes mellitus without complication, with long-term current use of insulin ([facility]) Take 1 tablet (10 mg total) by mouth once daily 90 tablet 3 06/08/20 25 026 Active blood glucose diagnostic test stripIndications: Type 2 diabetes mellitus without complication, with long-term current use of insulin ([facility]) Use to check 3 times a day for blood glucose. 100 each 3 06/08/20 25 Active lancetsIndication s:Type 2 diabetes mellitus without complication, with long-term current use of insulin ([facility]) Use 3 times a day for glucose mornitoring. 100 each 3 06/08/20 25 Active pen needle, diabetic 32 gauge x 5/16 needle Use as directed 100 each 12 06/08/20 25 026 Active dapagliflozin propanediol (FARXIGA) 10 mg tabletIndications :Type 2 diabetes mellitus without complication, with long-term current use of insulin ([facility]) Take 1 tablet (10 mg total) [...] complication, without long-term current use of insulin ([facility]) 12/06/2024 Obesity, Class III, BMI 40-49.9 (morbid obesity) 12/06/2024 Hypercholesterolemia 12/06/2024 Seizures ([facility]) 06/29/2019 Resolved Problems Problem Noted Date Diagnosed Date Resolved Date Spell of abnormal behavior 02/22/2020 0 02/24/2020 Encounters Date Type Department Care Team Description 06/16/2025 Documentation [facility] [address] [facility] [address] [place] [address] Brenda Padilla Medication Prior Authorization (Mounjaro 7.5mg) 04/26/2025 11:00 AM EDT Telemedicine [facility] [address] [facility] [place] [phone] Christophe Crowley NP Type 2 diabetes mellitus without complication, without long-term current use of insulin ([facility]) (Primary Dx); Obesity, Class III, BMI 40-49.9 (morbid obesity) ([facility]); Hypercholesterolemia from Last 3 Months Family [...] = 0.6 oz pur e alcohol) [facility] Utilities Answer Date Recorded In the past 12 months has e [employer], gas, oil, or water [employer] threatened to shut off services in your home? Yes 05/31/2024 Overall Financial Resource Strain (CARDIA) Answe r Date Recorded How hard is it for you to pa y for the very basics like food, housing, medical care, and heating? Somewhat hard 05/31/2024 PHQ-2 Answer Date Recorded Patient Health Questionnaire-2 Score 6 05/31/2024 [employer] - Occupational Stress [...] were you homeless or living in a senior care (including now)? No 05/31/2024 Interpersonal Safety Answer [...] Info) Description 10/25/2025 11:00 AM EDT Telemedicine [facility] [address] [place] [address] Christophe Crowley NP [address] [place] [address] Follow-up disposition: Return in about 6 months [...] Date/Time Associated Diagnosis Comments POC HBA1C (GLYCOHEMOGLOBIN) ([facility] ONLY) Routine 12/06/2024 1:17 PM EDT from Last 3 Months or Most Recently Relevant to Health Maintenance Results * POC HBA1C (Glycohemoglobin) ([facility] only) (12/06/2024 1:17 PM EDT) Pathologist [facility] POC Hemoglobin A1C (Glycated) 5.5 4.3 - 6.0 % ED [facility] 12/06/2024 1:24 PM EDT [facility] POINT OF CARE TESTING PROGRAM Average Blood Glucose 108 mg/dL ED [facility] 12/06/2024 1:24 PM EDT [facility] POINT OF CARE TESTING PROGRAM Comment: Interpretive Data AVERAGE BLOOD GLUCOSE ASSOCIATED WITH THIS PERCENT GLYCATED HEMOGLOBIN (BASED ON DCCT) Blood 12/06/2024 1:17 PM EDT 12/06/2024 1:24 PM EDT Narrative [facility] POINT OF CARE TESTING PROGRAM - 12/06/2024 1:24 PM EDT Interpretive Data THE ADA HAS MADE THE FOLLOWING RECOMMENDATIONS HBA1C results in the range of 5.7-6.4% are suggestive of prediabetes. HBA1C results in the range of > or = 6.5% are diagnostic for diabetes. POC TEST(S) ABOVE PERFORMED AT THE PATIENT CARE LOCATION AND OVERSEEN BY THE [facility] POCT PROGRAM. us Christophe Crowley NP POINT OF CARE TEST ORDERABLES Fi nal Result [facility] POINT OF CARE TESTING PROGRAM [id number], [place] [address] from Last 3 Months or Most Recently Relevant to Health Maintenance Advance Directives For more information, please contact: [phone] * Full Code (Latest Code Status on File) Date Activated Date Inactivated Comments 02/22/2020 5:03 PM 02/24/2020 4:53 PM Care Teams Cruise Director Relationship Specialty Start Date End Date Aislinn Merlos PA [address] [place] [id number] PCP - General 08/13/21
--- OUTSIDE RECORDS SUMMARY | 2025-06-24 18:19 | XMS_ITS | Clinical Summary ---
Author Organization [facility] Address [address] [place] [address], [facility] [address] [place] [address] Phone Care Team Providers Care Manager Office Services Name Role Phone Unavailable Primary Care Provider [...] Continuous Glucose Sensor (FreeStyle Philip 2 Sensor) [facility] [place] [place] USE ONE sensor replace sensor EVERY 14 [...] patient's age to complete this topic Insurance [employer] [place]
--- OUTSIDE RECORDS SUMMARY | 2025-06-24 18:19 | XMS_ITS | Encounter Summary ---
Author Organization [facility] Address [address] [place] [address] Care Team Providers Care Dam Operator Name Role Phone Naila Vallejo MD Primary Care Provider [phone] Aislinn Merlos Primary Care Provider [phone] Sandra Wood Unavailable Unavailable Serena Meyer Unavailable Unavailable Krys Oropeza RN Unavailable Unavailable Reason for Visit * Reason Onset Date Comments Obesity 05/11/2015 Med/Surg Encounter Details Date Type Department Care Team (Late st Contact Info) Description 05/11/2015 Documentation [facility] [address] [place] [phone] Tawny Chaudhary Obesity (Med/Surg) Social History [...] Info) Description 10/25/2025 11:00 AM EDT Telemedicine [facility] [address] [place] [phone] Christophe Crowley NP [address] [place] [address] Follow-up disposition: Return in about 6 months (around 10/25/2025) for Riddhiing, video visit, Tuesdays. documented as of this encounter Visit Diagnoses Not on filedocumented in this encounter Care Teams Dam Operator Relationship Specialty Start Date End Date Naila Vallejo MD [address] [place] [address] PCP - General Family Medicine 05/11/15 08/12/21 Aislinn Merlos PA [address] [place], [place] [phone] PCP - General 08/13/21 Sandra Wood [facility] 05/13/2405/01 Serena Meyer [facility] 05/24/2406/01 Krys Oropeza, pit operator [facility] ([facility]) 06/01/24 4 documented as of this encounter
--- OUTSIDE RECORDS SUMMARY | 2025-06-24 18:20 | XMS_ITS | Patient Health Record ---
Author Organization [facility] Address [address] [place] [address] Care Team Providers Care Director Of Enterprise Strategy Name Role Phone Benedicto Talley MD Unavailable Unavailable DR. Benedicto Talley Unavailable [phone] Migration, Provider Unavailable Unavailable Reason For Referral [...] PANIC ATTACHS; Duration: 10 DX: PANIC ATTACkS [place] Controlled Substance Reporting Database reviewed and patient found to be in compliance with prescription. 10/12/2024 Active atorvastatin 40mg atorvastatin 40mg, 1 (one) Tablet at bedtime for high cholesterol # 90, 09/13/2024, Ref. x1. Active oral at bedtime for high cholesterol; Duration: 90 *[facility] for [facility] and Interaction Alert[facility]* 09/13/2024 [...] every 12 weeks; Duration: 0 *Reorder from [facility] for eRx and Interaction Alerts* 11/04/2024 Active [...] for neck tension; Duration: 90 *Reorder from [facility] for eRx and Interaction Alerts* 11/04/2024 Active Ferrous Sulfate 325 (65 Fe)MG Ferrous Sulfate 325 (65 Fe)MG, 1 tablet Tablet daily or every other day # 30, 11/09/2019, Ref. x2. Active Oral daily or every other day; Duration: 30 *Pick strength-form from [facility] for eRX* 11/09/2019 Active cholecalciferol (vitamin D3) 50 mcg(2,000 uni cholecalciferol (vitamin D3) 50 mcg(2,000 uni, 1 (one) Tablet daily # 30, 11/20/2022, No Refill. Active oral daily; Duration: 30 *Reorder from [facility] for eRx and Interaction Alerts* 11/20/2022 Active Vitamin B-12 1000 MCG Tablet Vitamin B-12 1000MCG, 1 (one) Tablet daily # 30, 04/27/2021, No Refill. Active Oral daily; Duration: 30 04/27/2021 Active Ozempic 2 mg/dose(8 mg/3 mL Ozempic( 2 mg/dose(8 mg/3 mL subcutaneous 2 mg one weekly ) Active -Hx Entry subcutaneous one weekly; Duration: 0 *Reorder from [facility] for eRx and Interaction Alerts* 11/04/2024 Active PROzac 20 MG Capsule PROzac 20mg, 1 Capsule daily # 90, 12/04/2024, No Refill. Active Oral daily; Duration: 90 12/04/2024 Active Nurtec ODT 75mg Nurtec ODT 75mg, 1 (one) Tablet daily at onset of migraine headache # 8, 01/09/2024, Ref. x2. Active oral daily at onset of migraine headache; Duration: 30 *Reorder from [facility] for eRx and Interaction Alerts* 01/09/2024 Active [...] Entry Oral daily; Duration: 30 *Reorder from [facility] for eRx and Interaction Alerts* 04/27/2021 Active Immunizations Vaccine [place] [id number] Tdap OTH Other/Miscellaneous 10/05/2024 Pending ,ImmunizationName ,' : Tdap (7 years and up) (26603) ,Status,' : Ordered Source Location: <Undefined> Influenza, unspecified formulation IM Intramuscular 03/10/2024 Administered ,ImmunizationNa me ,' : Influenza, inj, MDCK, preservative free, q.valent (08679) ,Status,' : Complete Social History Social History [...] Problem Viral infection of the digestive tract (229271560) Viral intestinal infection, unspecified (A08.4) Active confirmed This appears viral. Discussed OTC medications for symptomatic relief. Educated patient on viral vs bacterial infections and use of antibiotics. Provided return precautions. Reminded patient of the importance of hygiene to prevent transmission. Please re-check if no improvement in 1 week OSIW. Problem Iron deficiency anemia (63928320) Iron deficiency anemia, unspecified (D50.9) Active confirmed Continue OTC Ferrous Sulfate 325 mg daily. Will check CBC w/ diff and iron studies. Problem Vitamin B>12< deficiency anaemia (41358797) Vitamin B12 deficiency anemia, unspecified (D51.9) Active confirmed Problem Type II diabetes mellitus without complication (178049130) Type 2 diabetes mellitus without complications (E11.9) Active confirmed Managed by endocrinology. A1c controlled at this time. Problem Vitamin A deficiency (66204610) Vitamin A deficiency, unspecified (E50.9) Active confirmed Patient states she has recently been diagnosed with Vitamin A deficiency by her group marketing vp and started on OTC supplements about 6 weeks ago. Will check Vitamin A levels. Discussed dangers associated with fat-soluble vitamins and not going over recommended daily amount. Problem Vitamin B deficiency (67870515) Deficiency of other specified B group vitamins (E53.8) Active confirmed Rechecking labs today Problem Vitamin D deficiency (46355943) Vitamin D deficiency, unspecified (E55.9) Active confirmed Labs pending. Will call patient with results and treat as indicated. Continue vitamin Vitamin D3, 2000 units a day. Problem Morbid obesity (disorder) (426338722) Morbid (severe) obesity due to excess calories (E66.01) Active confirmed Encouraged heart healthy diet modifications and increased exercise of moderate intensity 3-4 times per week as tolerated. Reviewed the numerous benefits of reducing weight. Problem Hyperlipidemia (59652601) Hyperlipidemia, unspecified (E78.5) Active confirmed Rechecking lipid panel. Continue atorvastatin 40 mg daily. Encouraged lifestyle modification in diet and exercise regimen to reduce cholesterol. - Continue lowering intake of high-saturated fat in diet. - Goal lipid levels: Total cholesterol: < 170 Triglycerides: < 150 HDL: > 40 LDL: < 70 Problem Bipolar disorder (65590667) Bipolar disorder, unspecified (F31.9) Active confirmed Follow up with her psychiatrist and her therapist. Problem Anxiety disorder (546197973) Anxiety disorder, unspecified (F41.9) Active confirmed Continue Prozac. Patient also has Xanax available as needed. Will have our office reach out to [facility] psychiatry to inquire about follow-up. Will refer elsewhere if needed for psychiatry services. Problem Post-traumatic stress disorder (37230071) Post-traumatic stress disorder, unspecified (F43.10) Active confirmed Patient started on Zoloft 50 mg daily. Psychiatrist commented he may consider adding Minipress in case there is no improvement in nightmares. Continue to monitor. Problem Epilepsy (93217723) Epilepsy, unspecified, not intractable, without status epilepticus (G40.909) Active confirmed Agreed to refill one more time in light of the COVID-19 pandemic, however patient needs to get all future refills of her Ativan from her Neurologist who initially prescribed the medication. Clear per [employer] database. Problem Migraine without aura, not refractory (disorder) (929139734) Migraine, unspecified, not intractable, without status migrainosus [...] Patient given strict return precautions. Problem Insomnia (991970750) Insomnia, unspecified (G47.00) Active confirmed Problem Obstructive sleep apnea syndrome (disorder) (05796994) Obstructive sleep apnea (adult) (pediatric) (G47.33) Active confirmed Patient has still not heard from [facility] Pulmonology to schedule sleep study. Will refer to Agency upon patient request. Problem Carpal tunnel syndrome (12388598) Carpal tunnel syndrome, right upper limb (G56.01) Active confirmed Tendonitis vs CTS. Advised patient she will need to stop crocheting at least for now and will place her in a CTS splint with a thumb stabilizer to help with trigger thumb. Re-check in 2 weeks if no improvement. . Problem Polyneuropathy (93291943) Polyneuropathy, unspecified (G62.9) Active confirmed Problem Benign intracranial hypertension (17140935) Benign intracranial hypertension (G93.2) Active confirmed follow-up with neurology. Problem Compression of brain (07780932) Compression of brain (G93.5) Active confirmed Diagnosed in 2007. Followed by [facility] neurology. Problem Visual disturbance (05340498) Unspecified visual disturbance (H53.9) Active confirmed Called [...] dation. Patient made aware. Problem Otitis media (88326917) Otitis media, unspecified, left ear (H66.92) Active confirmed Starting Cefedinir x 5 days. Recommend OTC Tylenol +/- Motrin for pain and fever control. Return in 2-3 days if no improvement or worsening of pain occurs. Problem Otalgia of right ear (finding) (2795627622) Otalgia, right ear (H92.01) Active confirmed Physical exam unremarkable with no signs of infection. Problem Bilateral otalgia (217550584) Otalgia, bilateral (H92.03) Active confirmed Problem Pain of ear (finding) (101197376) Otalgia, unspecified ear (H92.09) Active confirmed Physical exam unremarkable, with no sign of otitis media or externa. Likely due to seasonal allergies/conge stion causing fluid to build behind TM. Recommended OTC antihistamine. Return as needed for increased pain, fever, or onset of ear drainage. Problem Essential hypertension (85049444) Essential (primary) hypertension (I10) Active confirmed Controlled off of antihypertensiv e at this time. Problem Diastolic heart failure (947250551) Unspecified diastolic (congestive) heart failure (I50.30) Active confirmed Patient reports normal echo by cardiology. No follow up scheduled. Problem Heart failure (55809897) Heart failure, unspecified (I50.9) Active confirmed Stable. Continue current treatment. Follow up with cardiology. Problem Heart disease (73970153) Heart disease, unspecified (I51.9) Active confirmed Echo 12/24/16: quality of study fair, EF 55-60%, nor LV size & fxn, no RWMA. Impaired LV relaxation / grade 1 diastolic dysfxn, trace TR On Lasix. Referring to cardiology. Problem Orthostatic hypotension (14233316) Orthostatic hypotension (I95.1) Active confirmed Orthostatic vitals performed: Laying - Blood pressure 124/74, HR 102 Standing - Blood pressure 118/60, HR 112 After standing for 2 minutes - patient became dizzy and had to sit down. BP 124/70. Findings consistent with orthostatic hypotension. Encouraged patient to drink plenty of fluids, and to avoid standing up too quickly. Problem Acute sinusitis (90713447) Acute sinusitis, unspecified (J01.90) Active confirmed Doxycycline 100 mg 1 p.o. b.i.d. x10 days. Recheck if not better in 3 to 4 days or sooner if worsening. Problem Acute pharyngitis (958798859) Acute pharyngitis, unspecified (J02.9) Active confirmed Rapid strep negative. Problem Acute upper respiratory infection (86479062) Acute upper respiratory infection, unspecified (J06.9) Active confirmed Start daily oral antihistamine and Flonase intranasal therapy for nasal congestion. Also recommend NetiPot sinus rinses, Mucinex for congestion. Recommend throat coat tea, lozenges, Chloraseptic spray for sore throat. If worsening throat pain, swelling in throat, muffling of voice please return to clinic. Problem Acute bronchitis (05777556) Acute bronchitis, unspecified (J20.9) Active confirmed Recheck if not better in 3 to 4 days or sooner if worsening. Problem Chronic sinusitis (17724345) Chronic sinusitis, unspecified (J32.9) Active confirmed Likely viral. Encouraged patient to stay well hydrated and rest as needed. May take benzonatate for cough. Problem Exacerbation of asthma (341765927) Unspecified asthma with (acute) exacerbation (J45.901) Active confirmed Refilling albuterol MDI and starting prednisone. Call 911 for difficulty breathing Problem Uncomplicated asthma (disorder) (052072141) Unspecified asthma, uncomplicated (J45.909) Active confirmed Continue Trelegy daily and albuterol as needed. Sending prescription for spacer chamber. Patient encouraged to increase albuterol inhaler use to every 4-6 hours for the next 2 days and then resume as needed. Problem Gastro-esophageal reflux disease without esophagitis (781617164) Gastro-esophage al reflux disease without esophagitis (K21.9) Active confirmed Avoid NSAIDs. Continue Omeprazole once daily. Patient has known history of reucrrent gastric ulcers secondary to chronic NSAID use. Problem Gastric ulcer (747992205) Gastric ulcer, unspecified as acute or chronic, without hemorrhage or perforation (K25.9) Active confirmed Continue to avoid use of NSAIDs. Repeat EGD in 2020, per GI recommendations . Problem Non-infective enteritis and colitis (856569347) Noninfective gastroenteritis and colitis, unspecified (K52.9) Active confirmed Symptoms likely due to gastroenteritis . VSS, no signs of volume depletion. No fevers, severe pain, bloody/mucoid stools, tolerating fluid PO intake today, and estimated BMs/day < 6. Discussed conservative treatment with symptomatic management, rehydration and bland diet advance as tolerated. Discussed proper hygiene and provided return/ED precautions to patient. Problem Fatty liver (409175111) Fatty (change of) liver, not elsewhere classified [...] alcohol, low saturated fat diet. Problem Urticaria (34436672) Urticaria, unspecified (L50.9) Active confirmed Improving w/ Lyndsey once daily. Problem Osteoarthritis (160479544) Unspecified osteoarthritis, unspecified site (M19.90) Active confirmed Desires to continue use of PRN Naproxen. Will Rx Vimovo for the patient to provide GI protection, however cautioned the patient about regular use of this medication given her hx of gastritis in the past secondary to NSAIDs. Patient agrees with plan. Problem Pain in wrist (07478642) Pain in right wrist (M25.531) Active confirmed Possibly secondary to carpal tunnel syndrome. Recommended patient to wear wrist splint for the next 2 weeks. Try conservative treatment at home including ice/heat, Tylenol as needed for pain. Patient given a written prescription for right wrist splint to warehouse picker at pharmacy. Problem Pain in wrist (36510589) Pain in left wrist (M25.532) Active confirmed [...] pain persist. Problem Disorder of wrist joint (482706586) Other specified joint disorders, unspecified wrist (M25.839) Active confirmed See above fo r details. Problem Lumbar radiculopathy (718380356) Radiculopathy, lumbar region (M54.16) Active confirmed MRI L-Spine w/o contrast ordered at last visit, awaiting medicaid approval at this time. Continue PT sessions 2-3x/week with [facility]. Has few weeks left remaining. Problem Spasm (87911620) Other muscle spasm (M62.838) Active confirmed Refilling Flexeril. Back pain appears chronic in nature. Recommend heat and ice massage with gentle stretching for back pain. Problem Acquired trigger finger (1129035) Trigger thumb, right thumb (M65.311) Active confirmed [...] would likely be sufficient. Problem Achilles bursitis (092791739) Achilles tendinitis, unspecified leg (M76.60) Active confirmed Follow up with [facility]. Problem Calculus of kidney (52969885) Calculus of kidney (N20.0) Active confirmed Recommend following back up with Urology for further evaluation. Problem Urinary tract infectious disease (disorder) (26289462) Urinary tract infection, site not specified (N39.0) Active confirmed Patient denies symptom improvement on Macrobid, switching to Bactrim DS. Urine culture sent. Increase fluid intake and urine output, holding urine no longer than two hours if possible before voiding. Problem Abscess of vulva (52323275) Abscess of vulva (N76.4) Active confirmed Followed by [facility] - Continue Bactrim DS 1 tablet BID as directed. Improved s/p I&D performed at last visit. Keep scheduled f/u appt with [facility] for next week. Problem Excessive and frequent menstruation (156836809) Excessive and frequent menstruation with regular cycle (N92.0) Active confirmed Patient is trying to concieve. Treating for SHIKHA at this time, likely due to menorrhagia. Problem Irregular menstruation (88564887) Irregular menstruation, unspecified (N92.6) Active confirmed HCG negative. Problem Abnormal uterine bleeding (20718847152161) Abnormal uterine and vaginal bleeding, unspecified (N93.9) Active confirmed Refill of Provera 20 mg TID x 7 days for AUB. Follow up appt scheduled with [facility] CR[facility] OPER[facility] in November 2021. Problem Tachycardia (7861364) Tachycardia, unspecified (R00.0) Active confirmed - Follow up with Cardiology as soon as possible. Problem Elevated blood pressure reading without diagnosis of hypertension (084775494) Elevated blood-pressure reading, without diagnosis of hypertension [...] in 1 month. Problem Shortness of breath (277012402) Shortness of breath (R06.02) Active confirmed Duoneb given with marginal improvement in symptoms. Sending patient to ED for PE work-up. She declines EMS but states that she will drive directly to ED. Charge nurse called. Vital signs stable at discharge. Problem Chest pain (96771744) Other chest pain (R07.89) Active confirmed Recommended follow up with [facility]. Problem Chest pain (89023953) Chest pain, unspecified (R07.9) Active confirmed Awaiting referral to Cardiology at this time. Problem Epigastric pain (95191995) Epigastric pain (R10.13) Active confirmed New abdominal pain since starting Ozempic. Will check labs today. Will call patient with results and treat as indicated. Problem Lower abdominal pain (36013065) Lower abdominal pain, unspecified (R10.30) Active confirmed Recommended checking additional labs such as CBC, CMP, but patient denied at this time. If symptoms continue, recommended she follow up for labs. Problem Abdominal pain (17462047) Unspecified abdominal pain (R10.9) Active confirmed Updating labs today. Checking also pancreatic enzymes. Problem Nausea (844258982) Nausea (R11.0) Active confirmed Nausea is associated with Ozempic injections. Resending prescription for Zofran to her pharmacy. Patient encouraged to eat smaller and more frequent meals. Problem Vomiting (415796919) Vomiting, unspecified (R11.10) Active confirmed Patient tried Zofran with no relief. Will start Phenergan for nausea/vomiting . The patient is aware of the sedative effects of this medication and will not drive or drink alcohol while taking it. Problem Dysphagia (05313285) Dysphagia, unspecified (R13.10) Active confirmed Follow-up with GI. Problem Diarrhea (53566472) Diarrhea, unspecified (R19.7) Active confirmed Likely due to recent antibiotic use - Will send stool culture + C. diff EUGENIA. Avoid Immodium at this time as bacterial etiology can not be excluded. Increase PO hydration at home. Will Rx Bentyl for abdominal cramping as needed. Problem Paresthesia (finding) (61144571) Paresthesia of skin (R20.2) Active confirmed Followed by Neurology. Continue Gabapentin 300 mg at bedtime. Problem Abnormal gait (42384050) Unsteadiness on feet (R26.81) Active confirmed Referring for PT. Problem Dysuria (71342646) Dysuria (R30.0) Active confirmed Urinalysi s positive for excess glucose, negative for blood leukoesterase or nitrites. Sending urine sample for culture and sensitivity. Will call patient with results and treat as indicated. Problem Unspecified symptoms and signs involving the genitourinary system (R39.9) Active confirmed Problem Dizziness and giddiness (204077398) Dizziness and giddiness (R42) Active confirmed Patient does have nystagmus and ear fullness. Will try her on meclizine for symptoms of vertigo. Also recommend Zyrtec and Flonase however patient reports that she is unable to tolerate Flonase. Follow through with cardiology referral. Problem Fever (004861274) Fever, unspecified (R50.9) Active confirmed May be related to cellulitis on her right breast, which started approx. 1 week ago. Consider right breast mammogram vs. ULS if no improvement in 2-3 days. Follow up recommended. Problem Malaise (184850133) Other malaise (R53.81) Active confirmed Continue to follow up with PT for strengthening exercises. Problem Fatigue (78774421) Other fatigue (R53.83) Active confirmed Multifactorial in nature given her comorbidities and sedentary lifestyle. Chronic fatigue. Problem Syncope and collapse (052363127) Syncope and collapse (R55) Active confirmed Cardiology referral pending per [facility] records. ED precautions reviewed. Patient encouraged to check blood sugar if she feels presyncope symptoms. Problem Localized enlarged lymph nodes (809548169) Localized enlarged lymph nodes (R59.0) Active confirmed Mammogram in Jul 2020 - BIRADS2. Will perform ULS of the swollen palpable area in the left supraclavicular region for further evaluation. Possibly related to recent COVID-19 vaccine in the L. deltoid from 3 weeks ago. Problem Symptom: generalized (819891911) Other general symptoms and signs (R68.89) Active [...] reduce viral spread. Problem Blood chemistry abnormal (030591953) Other specified abnormal findings of blood chemistry (R79.89) Active confirmed Redrawing liver panel and hepatitis labs today. Suspect Tylenol caused LFT elevation. Patient to avoid Tylenol and EtOH going forward. Will contact patient with results of lab work. Will consider NAFLD workup if LFTs remain elevated despite discontinuing Tylenol use. Problem Glycosuria (58540307) Glycosuria (R81) Active confirmed UA with ++++ glucose, however FSBS 316 in the office. See diabetes note above. Problem Adult health examination (788167014) Encounter for general adult medical examination without abnormal findings (Z00.00) Active confirmed Discussed appropriate health maintenance and prevention topics with patient. Reviewed vaccinations and screening tests. Discussed healthy lifestyle habits to prevent disease and promote wellbeing. Labs pending, will call patient with results and treat as indicated. Re-check for annual PE in 1 year. Problem History and physical examination, follow-up (137427050) Encounter for follow-up examination after completed treatment for conditions other than malignant neoplasm (Z09) Active confirmed see HPI Problem Screening for malignant neoplasm of cervix (413080404) Encounter for screening for malignant neoplasm of cervix (Z12.4) Active confirmed History of multiple abnormal paps. Refer to Agency to updating Pap upon patient request. Problem Vaccination given (440529249) Encounter for immunization (Z23) Active confirmed Tdap given by [facility] in Left deltoid Lot:[id number] EXP: 02/23/27 Tdap updated today. Problem test equivocal (338017648) Encounter for test, result unknown (Z32.00) Active confirmed Urine HCG negative. Will perfrom serum qualatative to confirm (patient requested). Avoid restarting Phentermine until lab confirms not . Patient agrees with the plan. Problem test positive (799237937) Encounter for test, result positive (Z32.01) Active confirmed Will perform serum HCG qual/quant performed, since our office is out of urine HCG test at this time. Starting vitamin once daily. Follow up with [facility]PER[facility]/OB if confirmed. Problem care (689953746) Encounter for supervision of normal , unspecified, unspecified trimester (Z34.90) Active confirmed Problem Dietary management surveillance (845620463) Dietary counseling and surveillance (Z71.3) Active confirmed [...] can cause defects. . Problem Counseling requested (435016140) Persons encountering health services in other specified circumstances (Z76.89) Active confirmed Although phentermine may be an okay option for her should she continue to lose weight, in light of recent events, advised that we will hold this prescription for now. Encouraged her to continue weight loss and exercise and after her neurology evaluation consider restarting or discussing an alternative option. Problem Health status (120659438) Other specified health status (Z78.9) Active confirmed Followed by Fertilty specialist. Currently on Provera but plans to start Clomid later this year. Problem History of urinary stone (907353459) Personal history of urinary calculi (Z87.442) Active [...] Urology on 01/14. Problem Pure hypercholesterole susie (309252080) Pure hypercholestero lemia, unspecified (E78.00) Active confirmed Check lipid and liver panel. Low-cholesterol diet. Problem Muscle pain (62182414) Myalgia, unspecified site (M79.10) Active confirmed Briefly discussed fibromyalgia with patient. Based on brief interview she does appear to meet criteria but no official diagnosis has been made yet. Would like to further discuss this with patient at future visits to see if we can get her off of Flexeril. Will refill Flexeril today. Problem Inflammatory disorder of breast (185600926) Mastitis without abscess (N61.0) Active confirmed Improving. Will order screening mammogram at this time which patient requested today. No prior screening in the past. Maternal grandmother w/ hx of breast cancer. Problem Lump in upper inner quadrant of left breast (finding) (126694900326999) Unspecified lump in the left breast, upper inner quadrant (N63.22) Active confirmed Mammogram ordered today. Problem Prediabetes (876133046) Prediabetes (R73.03) Active confirmed Problem COVID-19 (659522665) COVID-19 (U07.1) Active confirmed PCR testing today is negative. Problem Esophagitis (disorder) (60568364) Esophagitis, unspecified without bleeding (K20.90) Active confirmed Continue Protonix and Carafate. Problem Headache (18353112) Headache, unspecified (R51.9) Active confirmed Uncontrolled. [facility] has not seen [facility] who have recommended neurology consult prior to moving forward with treatment modalities. Resending Flexeril since this has helped somewhat, however I would not recommend this as a private duty nurse solution. Problem Encounter for screening for COVID-19 (Z11.52) Active confirmed Negative rapid COVID-19/RSV/Fl u via PCR today. Results reviewed with patient. Problem Exposure to acute respiratory syndrome coronavirus 2 (048539402) Contact with and (suspected) exposure to COVID-19 (Z20.822) Active confirmed Problem Depression (614663626) Depression, unspecified (F32.A) Active confirmed Followed by Psychiatry. Problem Low back pain (528739875) Low back pain, unspecified (M54.50) Active confirmed Urinalysis negative for blood, low suspicion for migrating kidney stones. Seems musculoskeletal given tenderness on exam and exacerbated pain with certain movements. Recommend continuing Tylenol for pain relief. Also recommend stretching exercises. Problem Acute cough (4511232462173248 04) Acute cough (R05.1) Active confirmed PCR negative for COVID, flu, RSV. Given short duration of symptoms, Patient advised to treat symptomatically and follow-up if no improvement over the course of 7 to 10 days. Problem Cough (finding) (04669856) Cough, unspecified (R05.9) Active confirmed Isolate until PCR results become available. This does appear viral. Discussed OTC medications for symptomatic relief. Educated patient on viral vs bacterial infections and use of antibiotics. Return precautions given. Patient advised to speak with a medical provider about next steps if they do test positive. Problem Post-acute COVID-19 (disorder) (1550757660) Post COVID-19 condition, unspecified (U09.9) Active confirmed Symptoms consistent with long covid. Educated that these symptoms could last for weeks-months due to COVID-19. Continue to stay hydrated and drink plenty of fluids, stay active. Can treat symptomatically if needed. Problem Obese class III (finding) (680164554) Obesity, class 3 (E66.813) Active confirmed Encouraged heart healthy diet modifications and increased exercise of moderate intensity 3-4 times per week as tolerated. Reviewed the numerous benefits of reducing weight. Problem Body mass index 40+ - severely obese (348957577) Body mass index (BMI) 40.0-44.9, adult (Z68.41) Active confirmed Problem Body mass index 40+ - severely obese (847587446) Body mass index (BMI) 45.0-49.9, adult (Z68.42) Active confirmed Problem Panic disorder (787879854) Panic disorder [episodic paroxysmal anxiety] without agoraphobia [...] that she is seeing. She has contacted [facility]. I have advised her that she also has an appointment with her PCP on Friday. Problem Candidiasis (24161662) Candidiasis, unspecified (B37.9) Inactive confirmed Patient contacts [...] prescription for fluconazole. Problem Hypertensive heart failure (50523852) Hypertensive heart disease with heart failure (I11.0) Inactive confirmed Continue current treatment. Clinically doing well. Problem Seizure (81628641) Unspecified convulsions (R56.9) Inactive confirmed See HPI. Keep scheduled follow up appointment with [facility]. Will allow them to further drive management of this. 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) Inactive confirmed Vital Signs Heart Rate 90 /min 11/04/2024 Temperature 98.40 degrees Fahrenheit 11/04/2024 Height-cm 162.56 cm 11/04/2024 Oximetry 97 % 11/04/2024 Blood pressure diastolic 84 mm Hg 11/04/2024 Weight-kg 108.41 kg 11/04/2024 Height 64.00 in 11/04/2024 Blood pressure systolic 122 mm Hg 11/04/2024 Weight 239.0000 lbs 11/04/2024 BMI 41.02 kg/m2 11/04/2024 Encounters Encounter Location Date Provider Diagnosis [facility] [address] [place] [address] 08/02/2024 Provider Migration [facility] [address] [place] [address] 09/06/2024 Provider Migration [facility] [address] [place] [address] 10/02/2024 Benedicto Talley [facility] [address] [place] [phone] 10/05/2024 Provider Migration [facility] [address] [place] [address] 10/14/2024 Provider Migration [facility] [address] [place] [address] 11/04/2024 Provider Migration [facility] [address] [place] [address] 03/05/2025 Provider Migration [facility] [address] [place] [address] 03/06/2025 Provider Migration Plan Of Treatment No Information Insurance Providers Payer Name Payer Address Payer Phone Subscriber Number Group Number Insured Name Patient Relationship to Insured Coverage Start Date Coverage End Date [employer] [address] [address] [place] [address] [id number] Georgia Swanson Self - patient is the insured 1 Medicaid [address] [address] [place] [address] [id number] Georgia Swanson Self - patient is the [...]
--- OUTSIDE RECORDS SUMMARY | 2025-06-24 18:20 | XMS_ITS | Patient Health Record ---
Author Organization [facility] are Address [address] [place] [address] Care Team Providers Care Button Breaker Name Role Phone MRS. Sunni Ramon Primary Care Provider Benedicto Talley MD Unavailable Unavailable DR. Benedicto Talley Unavailable [phone] Migration, Provider Unavailable Unavailable All Meade Unavailable [phone] Results Component Value Reference Range Notes IADNA SARSCOV2 & INF A&B & R SV MULT AMP PROBE TQ ([id number]) Reviewed date:09/06/2024 12:00:00 AM Interpretation: Performing Lab: Notes/Report: IADNA SARSCOV2 & INF A&B & RSV MULT AMP PROBE not dete cted NR BLOOD GLUCOSE-HOME MONITOR ( [id number]) Reviewed date:10/05/2024 12:00:00 AM Interpretation: Performing Lab: [...] UA - URINE SEDIMENT x NR CALCIFEDIOL ([id number]) Reviewed date:10/13/2024 12:00:00 AM Interpretation: Performing Lab: Notes/Report: Vitamin D, 25-Hydroxy 42.7 ng/mL 30.0-100.0 Cardiovascular Report Reviewed date:10/13/2024 12:00:00 AM Interpretation: Performing Lab: Notes/Report: Interpretation Note NR PDF . NR CBC, PLATELETS & AUT DIFF ([id number]) Reviewed date:10/13/2024 12:00:00 AM Interpretation: Performing Lab: [...] 11.7-15.4 WBC 8.6 x10E3/uL 3.4-10.8 LIPID PANEL (17798) Reviewed date:10/13/2024 12:00:00 AM Interpretation: Performing Lab: Notes/Report: Cholesterol, Total 200 mg/dL 100-199 HDL Cholesterol 39 mg/dL >39 LDL Chol Calc ([facility]) 141 mg/dL 0-99 Triglycerides 112 mg/dL 0-149 VLDL Cholesterol Ollie 20 mg/dL 5-40 METABOLIC PANEL, COMPREHENSI VE (10123) Reviewed date:10/13/2024 12:00:00 AM Interpretation: Performing Lab: [...] 141 mmol/L 134-144 Microalb/Creat Ratio, Sheng Giraldo (51555) Reviewed date:10/13/2024 12:00:00 AM Interpretation: Performing Lab: [...] for neck tension; Duration: 90 *Reorder from [facility] for eRx and Interaction Alerts* 11/04/2024 Active Ferrous Sulfate 325 (65 Fe)MG Ferrous Sulfate 325 (65 Fe)MG, 1 tablet Tablet daily or every other day # 30, 11/09/2019, Ref. x2. Active Oral daily or every other day; Duration: 30 *Pick strength-form from [facility] for eRX* 11/09/2019 Active cholecalciferol (vitamin D3) 50 mcg(2,000 uni cholecalciferol (vitamin D3) 50 mcg(2,000 uni, 1 (one) Tablet daily # 30, 11/20/2022, No Refill. Active oral daily; Duration: 30 *[facility] from [facility] for eRx and Interaction Alerts* 11/20/2022 Active Vitamin B-12 1000 MCG Tablet Vitamin B-12 1000MCG, 1 (one) Tablet daily # 30, 04/27/2021, No Refill. Active Oral daily; Duration: 30 04/27/2021 Active Ozempic 2 mg/dose(8 mg/3 mL Ozempic( 2 mg/dose(8 mg/3 mL subcutaneous 2 mg one weekly ) Active -Hx Entry subcutaneous one weekly; Duration: 0 *Reorder from [facility] for eRx and Interaction Alerts* 11/04/2024 Active PROzac 20mg PROzac 20mg, 1 Capsule daily # 90, 12/04/2024, No Refill. Active oral daily; Duration: 90 *Reorder from [facility] for eRx and Interaction Alerts* 12/04/2024 Active Nurtec ODT 75mg Nurtec ODT 75mg, 1 (one) Tablet daily at onset of migraine headache # 8, 01/09/2024, Ref. x2. Active oral daily at onset of migraine headache; Duration: 30 *Reorder from [facility] for eRx and Interaction Alerts* 01/09/2024 [...] Entry Oral daily; Duration: 30 *[facility] for [facility]Rx and Interaction Alerts* 04/27/2021 Active ALPRAZolam 0.5 MG Tablet ALPRAZolam 0.5mg, 1 (one) tablet two times daily, as needed FOR PANIC ATTACHS # 20, 10/12/2024, No Refill. Active Oral two times daily, as needed FOR PANIC ATTACHS; Duration: 10 DX: PANIC ATTACkS [place] Controlled Substance Reporting Database reviewed and patient found to be in compliance with prescription. 10/12/2024 Active atorvastatin 40mg atorvastatin 40mg, 1 (one) Tablet at bedtime for high cholesterol # 90, 09/13/2024, Ref. x1. Active oral at bedtime for high cholesterol; Duration: 90 *Reorder from [facility] for eRx and Interaction Alerts* 09/13/2024 Active Ajovy Autoinjector 225mg/1.5 mL Ajovy Autoinjector( 225mg/1.5 mL subcutaneous 1 every 12 weeks ) Active -Hx Entry subcutaneous every 12 weeks; Duration: 0 *Reorder from [facility] for eRx and Interaction Alerts* 11/04/2024 Active PROzac 20 MG Capsule PROzac 20mg, 1 Capsule daily # 90, 12/04/2024, No Refill. Active Oral daily; Duration: 90 12/04/2024 Active Albuterol Sulfate 90mcg/actuat albuterol sulfate 90mcg/actuat, 2 Puff q 4 hours prn wheezing # 1, 01/22/2024, Ref. x2. Active inhalation q 4 hours prn wheezing; Duration: 30 *Pick strength-form from [facility] for eRX* 01/22/2024 Active FreeStyle Philip 3 Sensor - Miscellaneous FreeStyle Philip 3 Sensor( miscellaneous every 14 days ) Active -Hx Entry miscellaneous every 14 days; Duration: 0 11/04/2024 Active Immunizations Vaccine [place] [id number] TDAP IM Intramuscular 10/05/2024 Pending ,Immuniz ationName, ' : Tdap (7 years and up) (27625) ,Status,' : Ordered Influenza, unspecified formulation IM Intramuscular 03/10/2024 Administered ,ImmunizationNa me, ' : Influenza, inj, MDCK, preservative free, q.valent (83586) ,Status,' : Complete 50397 Flu Shot IM Intramuscular 03/10/2024 Administered ,I mmunizationName, ' : Influenza, inj, MDCK, preservative free, q.valent (33900) ,Status,' : Complete Social History Social History [...] Problem Viral infection of the digestive tract (805950707) Viral intestinal infection, unspecified (A08.4) Active confirmed This appears viral. Discussed OTC medications for symptomatic relief. Educated patient on viral vs bacterial infections and use of antibiotics. Provided return precautions. Reminded patient of the importance of hygiene to prevent transmission. Please re-check if no improvement in 1 week OSIW. Problem Iron deficiency anemia (42300053) Iron deficiency anemia, unspecified (D50.9) Active confirmed Continue OTC Ferrous Sulfate 325 mg daily. Will check CBC w/ diff and iron studies. Problem Vitamin B>12< deficiency anaemia (67117011) Vitamin B12 deficiency anemia, unspecified (D51.9) Active confirmed Problem Type II diabetes mellitus without complication (664081823) Type 2 diabetes mellitus without complications (E11.9) Active confirmed Managed by endocrinology. A1c controlled at this time. Problem Vitamin A deficiency (98439406) Vitamin A deficiency, unspecified (E50.9) Active confirmed Patient states she has recently been diagnosed with Vitamin A deficiency by her dyeing machine tender and started on OTC supplements about 6 weeks ago. Will check Vitamin A levels. Discussed dangers associated with fat-soluble vitamins and not going over recommended daily amount. Problem Vitamin B deficiency (43089205) Deficiency of other specified B group vitamins (E53.8) Active confirmed Rechecking labs today Problem Vitamin D deficiency (56142643) Vitamin D deficiency, unspecified (E55.9) Active confirmed Labs pending. Will call patient with results and treat as indicated. Continue vitamin Vitamin D3, 2000 units a day. Problem Morbid obesity (disorder) (964278963) Morbid (severe) obesity due to excess calories (E66.01) Active confirmed Encouraged heart healthy diet modifications and increased exercise of moderate intensity 3-4 times per week as tolerated. Reviewed the numerous benefits of reducing weight. Problem Hyperlipidemia (29916118) Hyperlipidemia, unspecified (E78.5) Active confirmed Rechecking lipid panel. Continue atorvastatin 40 mg daily. Encouraged lifestyle modification in diet and exercise regimen to reduce cholesterol. - Continue lowering intake of high-saturated fat in diet. - Goal lipid levels: Total cholesterol: < 170 Triglycerides: < 150 HDL: > 40 LDL: < 70 Problem Bipolar disorder (69662867) Bipolar disorder, unspecified (F31.9) Active confirmed Follow up with her psychiatrist and her therapist. Problem Anxiety disorder (047732234) Anxiety disorder, unspecified (F41.9) Active confirmed Continue Prozac. Patient also has Xanax available as needed. Will have our office reach out to [facility] psychiatry to inquire about follow-up. Will refer elsewhere if needed for psychiatry services. Problem Post-traumatic stress disorder (55229517) Post-traumatic stress disorder, unspecified (F43.10) Active confirmed Patient started on Zoloft 50 mg daily. Psychiatrist commented he may consider adding Minipress in case there is no improvement in nightmares. Continue to monitor. Problem Epilepsy (52785654) Epilepsy, unspecified, not intractable, without status epilepticus (G40.909) Active confirmed Agreed to refill one more time in light of the COVID-19 pandemic, however patient needs to get all future refills of her Ativan from her Neurologist who initially prescribed the medication. Clear per [employer] database. Problem Migraine without aura, not refractory (disorder) (679566296) Migraine, unspecified, not intractable, without status migrainosus [...] Patient given strict return precautions. Problem Insomnia (280382563) Insomnia, unspecified (G47.00) Active confirmed Problem Obstructive sleep apnea syndrome (disorder) (98334101) Obstructive sleep apnea (adult) (pediatric) (G47.33) Active confirmed Patient has still not heard from [facility] Pulmonology to schedule sleep study. Will refer to [facility] upon patient request. Problem Carpal tunnel syndrome (53778189) Carpal tunnel syndrome, right upper limb (G56.01) Active confirmed Tendonitis vs CTS. Advised patient she will need to stop crocheting at least for now and will place her in a CTS splint with a thumb stabilizer to help with trigger thumb. Re-check in 2 weeks if no improvement. . Problem Polyneuropathy (13563162) Polyneuropathy, unspecified (G62.9) Active confirmed Problem Benign intracranial hypertension (49544837) Benign intracranial hypertension (G93.2) Active confirmed follow-up with neurology. Problem Compression of brain (92366491) Compression of brain (G93.5) Active confirmed Diagnosed in 2007. Followed by [facility] neurology. Problem Visual disturbance (66192774) Unspecified visual disturbance (H53.9) Active confirmed Called [...] dation. Patient made aware. Problem Otitis media (36771696) Otitis media, unspecified, left ear (H66.92) Active confirmed Starting Cefedinir x 5 days. Recommend OTC Tylenol +/- Motrin for pain and fever control. Return in 2-3 days if no improvement or worsening of pain occurs. Problem Otalgia of right ear (finding) (9072828063) Otalgia, right ear (H92.01) Active confirmed Physical exam unremarkable with no signs of infection. Problem Bilateral otalgia (103567342) Otalgia, bilateral (H92.03) Active confirmed Problem Pain of ear (finding) (410345471) Otalgia, unspecified ear (H92.09) Active confirmed Physical exam unremarkable, with no sign of otitis media or externa. Likely due to seasonal allergies/conge stion causing fluid to build behind TM. Recommended OTC antihistamine. Return as needed for increased pain, fever, or onset of ear drainage. Problem Essential hypertension (06290557) Essential (primary) hypertension (I10) Active confirmed Controlled off of antihypertensiv e at this time. Problem Diastolic heart failure (150802606) Unspecified diastolic (congestive) heart failure (I50.30) Active confirmed Patient reports normal echo by cardiology. No follow up scheduled. Problem Heart failure (62068626) Heart failure, unspecified (I50.9) Active confirmed Stable. Continue current treatment. Follow up with cardiology. Problem Heart disease (81482003) Heart disease, unspecified (I51.9) Active confirmed Echo 12/24/16: quality of study fair, EF 55-60%, nor LV size & fxn, no RWMA. Impaired LV relaxation / grade 1 diastolic dysfxn, trace TR On Lasix. Referring to cardiology. Problem Orthostatic hypotension (24647001) Orthostatic hypotension (I95.1) Active confirmed Orthostatic vitals performed: Laying - Blood pressure 124/74, HR 102 Standing - Blood pressure 118/60, HR 112 After standing for 2 minutes - patient became dizzy and had to sit down. BP 124/70. Findings consistent with orthostatic hypotension. Encouraged patient to drink plenty of fluids, and to avoid standing up too quickly. Problem Acute sinusitis (85902652) Acute sinusitis, unspecified (J01.90) Active confirmed Doxycycline 100 mg 1 p.o. b.i.d. x10 days. Recheck if not better in 3 to 4 days or sooner if worsening. Problem Acute pharyngitis (446552589) Acute pharyngitis, unspecified (J02.9) Active confirmed Rapid strep negative. Problem Acute upper respiratory infection (87207575) Acute upper respiratory infection, unspecified (J06.9) Active confirmed Start daily oral antihistamine and Flonase intranasal therapy for nasal congestion. Also recommend NetiPot sinus rinses, Mucinex for congestion. Recommend throat coat tea, lozenges, Chloraseptic spray for sore throat. If worsening throat pain, swelling in throat, muffling of voice please return to clinic. Problem Acute bronchitis (10074434) Acute bronchitis, unspecified (J20.9) Active confirmed Recheck if not better in 3 to 4 days or sooner if worsening. Problem Chronic sinusitis (90081278) Chronic sinusitis, unspecified (J32.9) Active confirmed Likely viral. Encouraged patient to stay well hydrated and rest as needed. May take benzonatate for cough. Problem Exacerbation of asthma (404120223) Unspecified asthma with (acute) exacerbation (J45.901) Active confirmed Refilling albuterol MDI and starting prednisone. Call 911 for difficulty breathing Problem Uncomplicated asthma (disorder) (601464635) Unspecified asthma, uncomplicated (J45.908) Active confirmed Continue Trelegy daily and albuterol as needed. Sending prescription for spacer chamber. Patient encouraged to increase albuterol inhaler use to every 4-6 hours for the next 2 days and then resume as needed. Problem Gastro-esophageal reflux disease without esophagitis (087223888) Gastro-esophage al reflux disease without esophagitis (K21.9) Active confirmed Avoid NSAIDs. Continue Omeprazole once daily. Patient has known history of reucrrent gastric ulcers secondary to chronic NSAID use. Problem Gastric ulcer (488800584) Gastric ulcer, unspecified as acute or chronic, without hemorrhage or perforation (K25.9) Active confirmed Continue to avoid use of NSAIDs. Repeat EGD in 2020, per GI recommendations . Problem Non-infective enteritis and colitis (644219913) Noninfective gastroenteritis and colitis, unspecified (K52.9) Active confirmed Symptoms likely due to gastroenteritis . VSS, no signs of volume depletion. No fevers, severe pain, bloody/mucoid stools, tolerating fluid PO intake today, and estimated BMs/day < 6. Discussed conservative treatment with symptomatic management, rehydration and bland diet advance as tolerated. Discussed proper hygiene and provided return/ED precautions to patient. Problem Fatty liver (208200447) Fatty (change of) liver, not elsewhere classified [...] alcohol, low saturated fat diet. Problem Urticaria (51900474) Urticaria, unspecified (L50.9) Active confirmed Improving w/ Lyndsey once daily. Problem Osteoarthritis (799532382) Unspecified osteoarthritis, unspecified site (M19.90) Active confirmed Desires to continue use of PRN Naproxen. Will Rx Vimovo for the patient to provide GI protection, however cautioned the patient about regular use of this medication given her hx of gastritis in the past secondary to NSAIDs. Patient agrees with plan. Problem Pain in wrist (70715401) Pain in right wrist (M25.531) Active confirmed Possibly secondary to carpal tunnel syndrome. Recommended patient to wear wrist splint for the next 2 weeks. Try conservative treatment at home including ice/heat, Tylenol as needed for pain. Patient given a written prescription for right wrist splint to pick pulling machine tender at pharmacy. Problem Pain in wrist (00919377) Pain in left wrist (M25.532) Active confirmed [...] pain persist. Problem Disorder of wrist joint (830765925) Other specified joint disorders, unspecified wrist (M25.839) Active confirmed See above fo r details. Problem Lumbar radiculopathy (024234607) Radiculopathy, lumbar region (M54.16) Active confirmed MRI L-Spine w/o contrast ordered at last visit, awaiting medicaid approval at this time. Continue PT sessions 2-3x/week with [facility]. Has few weeks left remaining. Problem Spasm (10352916) Other muscle spasm (M62.838) Active confirmed Refilling Flexeril. Back pain appears chronic in nature. Recommend heat and ice massage with gentle stretching for back pain. Problem Acquired trigger finger (8248582) Trigger thumb, right thumb (M65.311) Active confirmed [...] would likely be sufficient. Problem Achilles bursitis (852689331) Achilles tendinitis, unspecified leg (M76.60) Active confirmed Follow up with [facility]. Problem Calculus of kidney (87560279) Calculus of kidney (N20.0) Active confirmed Recommend following back up with Urology for further evaluation. Problem Urinary tract infectious disease (disorder) (21565216) Urinary tract infection, site not specified (N39.0) Active confirmed Patient denies symptom improvement on Macrobid, switching to Bactrim DS. Urine culture sent. Increase fluid intake and urine output, holding urine no longer than two hours if possible before voiding. Problem Abscess of vulva (36632591) Abscess of vulva (N76.4) Active confirmed Followed by [facility] - Continue Bactrim DS 1 tablet BID as directed. Improved s/p I&D performed at last visit. Keep scheduled f/u appt with TIMBER HARVESTER OPERATOR for next week. Problem Excessive and frequent menstruation (866326917) Excessive and frequent menstruation with regular cycle (N92.0) Active confirmed Patient is trying to concieve. Treating for SHIKHA at this time, likely due to menorrhagia. Problem Irregular menstruation (82307574) Irregular menstruation, unspecified (N92.6) Active confirmed HCG negative. Problem Abnormal uterine bleeding (79749868504902) Abnormal uterine and vaginal bleeding, unspecified (N93.9) Active confirmed Refill of Provera 20 mg TID x 7 days for AUB. Follow up appt scheduled with TIMBER HARVESTER OPERATOR in November 2021. Problem Tachycardia (5532099) Tachycardia, unspecified (R00.0) Active confirmed - Follow up with Cardiology as soon as possible. Problem Elevated blood pressure reading without diagnosis of hypertension (602352969) Elevated blood-pressure reading, without diagnosis of hypertension [...] in 1 month. Problem Shortness of breath (794026617) Shortness of breath (R06.02) Active confirmed Duoneb given with marginal improvement in symptoms. Sending patient to ED for PE work-up. She declines EMS but states that she will drive directly to ED. Charge nurse called. Vital signs stable at discharge. Problem Chest pain (07184603) Other chest pain (R07.89) Active confirmed Recommended follow up with [facility]. Problem Chest pain (80096502) Chest pain, unspecified (R07.9) Active confirmed Awaiting referral to Cardiology at this time. Problem Epigastric pain (24345202) Epigastric pain (R10.13) Active confirmed New abdominal pain since starting Ozempic. Will check labs today. Will call patient with results and treat as indicated. Problem Lower abdominal pain (79690018) Lower abdominal pain, unspecified (R10.30) Active confirmed Recommended checking additional labs such as CBC, CMP, but patient denied at this time. If symptoms continue, recommended she follow up for labs. Problem Abdominal pain (04868392) Unspecified abdominal pain (R10.9) Active confirmed Updating labs today. Checking also pancreatic enzymes. Problem Nausea (382916295) Nausea (R11.0) Active confirmed Nausea is associated with Ozempic injections. Resending prescription for Zofran to her pharmacy. Patient encouraged to eat smaller and more frequent meals. Problem Vomiting (228136119) Vomiting, unspecified (R11.10) Active confirmed Patient tried Zofran with no relief. Will start Phenergan for nausea/vomiting . The patient is aware of the sedative effects of this medication and will not drive or drink alcohol while taking it. Problem Dysphagia (97062203) Dysphagia, unspecified (R13.10) Active confirmed Follow-up with GI. Problem Diarrhea (03485581) Diarrhea, unspecified (R19.7) Active confirmed Likely due to recent antibiotic use - Will send stool culture + C. diff EUGENIA. Avoid Immodium at this time as bacterial etiology can not be excluded. Increase PO hydration at home. Will Rx Bentyl for abdominal cramping as needed. Problem Paresthesia (finding) (59369895) Paresthesia of skin (R20.2) Active confirmed Followed by Neurology. Continue Gabapentin 300 mg at bedtime. Problem Abnormal gait (84205544) Unsteadiness on feet (R26.81) Active confirmed Referring for PT. Problem Dysuria (41315710) Dysuria (R30.0) Active confirmed Urinalysi s positive for excess glucose, negative for blood leukoesterase or nitrites. Sending urine sample for culture and sensitivity. Will call patient with results and treat as indicated. Problem Unspecified symptoms and signs involving the genitourinary system (R39.9) Active confirmed Problem Dizziness and giddiness (788403089) Dizziness and giddiness (R42) Active confirmed Patient does have nystagmus and ear fullness. Will try her on meclizine for symptoms of vertigo. Also recommend Zyrtec and Flonase however patient reports that she is unable to tolerate Flonase. Follow through with cardiology referral. Problem Fever (508440210) Fever, unspecified (R50.9) Active confirmed May be related to cellulitis on her right breast, which started approx. 1 week ago. Consider right breast mammogram vs. ULS if no improvement in 2-3 days. Follow up recommended. Problem Malaise (841812522) Other malaise (R53.81) Active confirmed Continue to follow up with PT for strengthening exercises. Problem Fatigue (01506464) Other fatigue (R53.83) Active confirmed Multifactorial in nature given her comorbidities and sedentary lifestyle. Chronic fatigue. Problem Syncope and collapse (897317910) Syncope and collapse (R55) Active confirmed Cardiology referral pending per [facility] records. ED precautions reviewed. Patient encouraged to check blood sugar if she feels presyncope symptoms. Problem Localized enlarged lymph nodes (137296162) Localized enlarged lymph nodes (R59.0) Active confirmed Mammogram in Jul 2020 - BIRADS2. Will perform ULS of the swollen palpable area in the left supraclavicular region for further evaluation. Possibly related to recent COVID-19 vaccine in the L. deltoid from 3 weeks ago. Problem Symptom: generalized (552306196) Other general symptoms and signs (R68.89) Active [...] reduce viral spread. Problem Blood chemistry abnormal (571134575) Other specified abnormal findings of blood chemistry (R79.89) Active confirmed Redrawing liver panel and hepatitis labs today. Suspect Tylenol caused LFT elevation. Patient to avoid Tylenol and EtOH going forward. Will contact patient with results of lab work. Will consider NAFLD workup if LFTs remain elevated despite discontinuing Tylenol use. Problem Glycosuria (63647695) Glycosuria (R81) Active confirmed UA with ++++ glucose, however FSBS 316 in the office. See diabetes note above. Problem Adult health examination (708934760) Encounter for general adult medical examination without abnormal findings (Z00.00) Active confirmed Discussed appropriate health maintenance and prevention topics with patient. Reviewed vaccinations and screening tests. Discussed healthy lifestyle habits to prevent disease and promote wellbeing. Labs pending, will call patient with results and treat as indicated. Re-check for annual PE in 1 year. Problem History and physical examination, follow-up (692380437) Encounter for follow-up examination after completed treatment for conditions other than malignant neoplasm (Z09) Active confirmed see HPI Problem Screening for malignant neoplasm of cervix (821242577) Encounter for screening for malignant neoplasm of cervix (Z12.4) Active confirmed History of multiple abnormal paps. Refer to [facility] to updating Pap upon patient request. Problem Vaccination given (676979052) Encounter for immunization (Z23) Active confirmed Tdap given by [facility] in Left deltoid Lot:[id number] EXP: 02/23/27 Tdap updated today. Problem test equivocal (814488119) Encounter for test, result unknown (Z32.00) Active confirmed Urine HCG negative. Will perfrom serum qualatative to confirm (patient requested). Avoid restarting Phentermine until lab confirms not . Patient agrees with the plan. Problem test positive (779810175) Encounter for test, result positive (Z32.01) Active confirmed Will perform serum HCG qual/quant performed, since our office is out of urine HCG test at this time. Starting vitamin once daily. Follow up with TIMBER HARVESTER OPERATOR/OB if confirmed. Problem care (691705923) Encounter for supervision of normal , unspecified, unspecified trimester (Z34.90) Active confirmed Problem Dietary management surveillance (667596345) Dietary counseling and surveillance (Z71.3) Active confirmed [...] can cause defects. . Problem Counseling requested (907523270) Persons encountering health services in other specified circumstances (Z76.89) Active confirmed Although phentermine may be an okay option for her should she continue to lose weight, in light of recent events, advised that we will hold this prescription for now. Encouraged her to continue weight loss and exercise and after her neurology evaluation consider restarting or discussing an alternative option. Problem Health status (774571645) Other specified health status (Z78.9) Active confirmed Followed by Fertilty specialist. Currently on Provera but plans to start Clomid later this year. Problem History of urinary stone (923606799) Personal history of urinary calculi (Z87.442) Active [...] Urology on 01/14. Problem Pure hypercholesterole susie (653322286) Pure hypercholestero lemia, unspecified (E78.00) Active confirmed Check lipid and liver panel. Low-cholesterol diet. Problem Muscle pain (03529928) Myalgia, unspecified site (M79.10) Active confirmed Briefly discussed fibromyalgia with patient. Based on brief interview she does appear to meet criteria but no official diagnosis has been made yet. Would like to further discuss this with patient at future visits to see if we can get her off of Flexeril. Will refill Flexeril today. Problem Inflammatory disorder of breast (307034469) Mastitis without abscess (N61.0) Active confirmed Improving. Will order screening mammogram at this time which patient requested today. No prior screening in the past. Maternal grandmother w/ hx of breast cancer. Problem Lump in upper inner quadrant of left breast (finding) (584479026693097) Unspecified lump in the left breast, upper inner quadrant (N63.22) Active confirmed Mammogram ordered today. Problem Prediabetes (359027751) Prediabetes (R73.03) Active confirmed Problem COVID-19 (098303698) COVID-19 (U07.1) Active confirmed PCR testing today is negative. Problem Esophagitis (disorder) (36944907) Esophagitis, unspecified without bleeding (K20.90) Active confirmed Continue Protonix and Carafate. Problem Headache (70788858) Headache, unspecified (R51.9) Active confirmed Uncontrolled. Patient has not seen [facility] who have recommended neurology consult prior to moving forward with treatment modalities. Resending Flexeril since this has helped somewhat, however I would not recommend this as a retirement solution. Problem Encounter for screening for COVID-19 (Z11.52) Active confirmed Negative rapid COVID-19/RSV/Fl u via PCR today. Results reviewed with patient. Problem Exposure to acute respiratory syndrome coronavirus 2 (219448374) Contact with and (suspected) exposure to COVID-19 (Z20.822) Active confirmed Problem Depression (067883469) Depression, unspecified (F32.A) Active confirmed Followed by Psychiatry. Problem Low back pain (274100781) Low back pain, unspecified (M54.50) Active confirmed Urinalysis negative for blood, low suspicion for migrating kidney stones. Seems musculoskeletal given tenderness on exam and exacerbated pain with certain movements. Recommend continuing Tylenol for pain relief. Also recommend stretching exercises. Problem Acute cough (1219228401490115 04) Acute cough (R05.1) Active confirmed PCR negative for COVID, flu, RSV. Given short duration of symptoms, Patient advised to treat symptomatically and follow-up if no improvement over the course of 7 to 10 days. Problem Cough (finding) (77395376) Cough, unspecified (R05.9) Active confirmed Isolate until PCR results become available. This does appear viral. Discussed OTC medications for symptomatic relief. Educated patient on viral vs bacterial infections and use of antibiotics. Return precautions given. Patient advised to speak with a medical provider about next steps if they do test positive. Problem Post-acute COVID-19 (disorder) (4537603777) Post COVID-19 condition, unspecified (U09.9) Active confirmed Symptoms consistent with long covid. Educated that these symptoms could last for weeks-months due to COVID-19. Continue to stay hydrated and drink plenty of fluids, stay active. Can treat symptomatically if needed. Problem Obese class III (finding) (713367015) Obesity, class 3 (E66.813) Active confirmed Encouraged heart healthy diet modifications and increased exercise of moderate intensity 3-4 times per week as tolerated. Reviewed the numerous benefits of reducing weight. Problem Panic disorder (310169101) Panic disorder [episodic paroxysmal anxiety] without agoraphobia [...] she is seeing. She has contacted [facility]. I have advised her that she also has an appointment with her PCP on Friday. Problem Body mass index 40+ - severely obese (295266726) Body mass index (BMI) 45.0-49.9, adult (Z68.42) Active confirmed Problem Body mass index 40+ - severely obese (627084208) Body mass index (BMI) 40.0-44.9, adult (Z68.41) Active confirmed Problem Candidiasis (06525751) Candidiasis, unspecified (B37.9) Inactive confirmed Patient contacts [...] prescription for fluconazole. Problem Hypertensive heart failure (63248625) Hypertensive heart disease with heart failure (I11.0) Inactive confirmed Continue current treatment. Clinically doing well. Problem Seizure (39287190) Unspecified convulsions (R56.9) Inactive confirmed See HPI. Keep scheduled follow up appointment with [facility]. Will allow them to further drive management of this. 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 [address] 02/26/2025 Provider Migration [facility] [address] [place] [address] 02/27/2025 Provider Migration [facility] [address] [place] [address] 05/14/2025 Provider Migration [facility] [address] [place] [address] 05/15/2025 Provider Migration [facility] [address] [place] [address] 10/05/2024 Sunnicristhian Guzmanon [facility] [address] [place] [address] 10/14/2024 Sunni Ramon [facility] [address] [place] [address] 08/02/2024 Sunni Ramon [facility] [address] [place] [address] 10/02/2024 Benedicto Talley [facility] [address] [place] [address] 09/06/2024 Sunnicristhian Guzmanon [facility] [address] [place] [address] 11/04/2024 Sunni Ramon Plan Of Treatment No Information Insurance Providers Payer Name Payer Address Payer Phone Subscriber Number Group Number Insured Name Patient Relationship to Insured Coverage Start Date Coverage End Date [facility]ly [facility] [address] [address] [place] [address] [id number] Georgia Swanson Self - patient is the insured 1 Medicaid [address] [address] [place] [address] [id number] Georgia Swanson Self - patient is the [...]
--- OUTSIDE RECORDS SUMMARY | 2025-06-24 18:21 | XMS_ITS | Encounter Summary ---
Author Organization [employer] ([employer] [facility] [employer]) Address [address] [place] [address] Care Team Providers Care Educational Guidance Counselor Name Role Phone Naila Vallejo MD Primary Care Provider + Unassigned, Doctor RAMIREZ Primary Care Provider Unav ailable Mehnaz Obando NP Primary Care Provider [phone] [place] Joseph Srinivasan Primary Care Provide r Aislinn Merlos Primary Care Provider [phone] Unassigned, Doctor RAMIREZ Primary Care Provider Unav ailable Reason for Visit * Reason Comments Refill Request Encounter Details Date Type Department Care Team (Late st Contact Info) Description 03/28/2016 Refill [facility] [address] [place], [place] [phone] Antoine Briceno MD [address] [place] [address] Refill Request Social History Tobacco Use Types [...] documented as of this encounter Care Teams Educational Guidance Counselor Relationship Specialty Start Date End Date Naila Vallejo MD PCP - General Family Medicine 09/20/13 04/01/17 Unassigned, MD Daniella PCP - General 04/02/17 09/09/17 Mehnaz Obando NP PCP - General Internal Medicine 09/10/17 03/01/19 Joseph Moraes [address] [place] [address] PCP - General Group provider 03/02/19 04/25/19 Aislinn Merlos PA [address] [place] [address] [place] [address] PCP - General Family Medicine [...] prosecute any alcohol or drug abuse patient. [facility] [email or web address] (a[facility]a. [facility])
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
--- OUTSIDE RECORDS SUMMARY | 2025-06-24 18:21 | XMS_ITS | Encounter Summary ---
Author Organization [employer] (a[employer]) Address [address] [place] [address] Care Team Providers Care Line Appliance Assembler Name Role Phone Naila Vallejo MD Primary Care Provider + Unassigned, Doctor RAMIREZ Primary Care Provider Unav ailable Mehnaz Obando NP Primary Care Provider [phone] [place] Joseph Srinivasan Primary Care Provide r Aislinn Merlos Primary Care Provider [phone] Unassigned, Doctor RAMIREZ Primary Care Provider Unav ailable Reason for Visit * Reason Comments Refill Request Encounter Details Date Type Department Care Team (Late st Contact Info) Description 04/27/2016 Refill [facility] [address] [place], [place] [id number] Antoine Briceno MD [address] [place] [address] Refill Request Social History Tobacco Use Types [...] documented as of this encounter Care Teams Line Appliance Assembler Relationship Specialty Start Date End Date Naila Vallejo MD PCP - General Family Medicine 09/20/13 04/01/17 Unassigned, MD Daniella PCP - General 04/02/17 09/09/17 Mehnaz Obando NP PCP - General Internal Medicine 09/10/17 03/01/19 Joseph Moraes [address] [place] [address] PCP - General Group provider 03/02/19 04/25/19 Aislinn Merlos PA [address] [place] [address] [place] [address] PCP - General Family Medicine [...] alcohol or drug abuse patient. [facility] [employer] (a[facility])
--- OUTSIDE RECORDS SUMMARY | 2025-06-24 18:21 | XMS_ITS | Encounter Summary ---
Author Organization [facility] ([facility]) Address [address] [place] [address] Care Team Providers Care Lead Investigator Name Role Phone Unassigned, Doctor Primary Care Provider Unav ailable Encounter Details Date Type Department Care Team (Late st Contact Info) Description 05/21/2024 Prep for Surgery [facility] - Orthopedics Service [address] [facility] [address] [place], [place] [id number] Maddi Villa PA-C [address] [place], [place] [phone] Social History Tobacco Use Types Packs/Day Years [...] documented as of this encounter Care Teams Lead Investigator Relationship Specialty Start Date End Date Unassigned, [...] prosecute any alcohol or drug abuse patient. [facility] [employer] ([facility])
--- OUTSIDE RECORDS SUMMARY | 2025-06-24 18:21 | XMS_ITS | Encounter Summary ---
Author Organization [facility] (a.k.a. V [facility]) Address [address] [place] [address] Care Team Providers Care Maintainer Plant Name Role Phone Mehnaz Obando NP Primary Care Provider [phone] [place] Joseph Srinivasan Primary Care Provide r Aislinn Merlos Primary Care Provider [phone] Unassigned, Doctor Primary Care Provider Unav ailable Encounter Details Date Type Department Care Team (Late st Contact Info) Description 04/14/2018 Prep for Surgery [facility] - Urology Service [address] [facility] [address] [place] [address] Jefe Veliz MD [address] [place] [address] Social History Tobacco Use Types Packs/Day [...] DM, HLD. Surgical History: Ankle arth roscopy/surgery (81828) , Appendectomy , Caesarean section , Cholecystectomy , Hernia repair , Hysteroscopy dx sep proc (50159) , Kidney stone extraction , Removal of ovarian cyst(s) (06601) , Liver surgery procedure (74939):biopsy . Hospitalization/Major Diagnostic Procedure: Denies Past Hospitalization. [...] Glucose neg Bilirubin neg Ketones neg Specific [place] 1.010 Occult Blood trace- Intact pH 5.5 [...] documented as of this encounter Care Teams Maintainer Plant Relationship Specialty Start Date End Date Mehnaz Obando NP PCP - General Internal Medicine 09/10/17 03/01/19 Joseph Moraes [address] [place] [address] PCP - General Group provider 03/02/19 04/25/19 Aislinn Merlos PA [address] [place] [address] [place] [address] PCP - General Family Medicine 04/26/19 03/10/22 Unassigned, DoctorMD [address] [place] [address] [place] [address] PCP - General Family Medicine 03/11/22 documented [...] alcohol or drug abuse patient. [facility] [employer] [facility])
--- OUTSIDE RECORDS SUMMARY | 2025-06-24 18:22 | XMS_ITS | Encounter Summary ---
Author Organization [employer] ([employer] [facility] [employer]) Address [address] [place] [address] Care Team Providers Care Audit Practice Intern Name Role Phone Aislinn Merlos Primary Care Provider Unassigned, Doctor Primary Care Provider Unav ailable Encounter Details Date Type Department Care Team (Late st Contact Info) Description 11/25/2021 Telemedicine [facility] [address] [place] [address] Nolberto Crystal AttendingMD [address] [place] [address] Social History Tobacco Use Types Packs/Day Years [...] Summary Report for Virtual Visit using the [employer] platform, electronically signed on Date [id number] with [...] (Self Reported) Prescription: diazePAM (Self Reported) Prescription: fbmhadsuuz-jjyzbhwdpxpht-prpv (Self Reported) Prescription: cyanocobalamin 500 mcg Tab [...] (Self Reported) Prescription: esomeprazole (Self Reported) Prescription: [place] 5-325 mg Tab (Self Reported) Prescription: enoxaparin (Self Reported) Prescription: dextrose 50% in water (Self Reported) Prescription: diazePAM (Self Reported) Prescription: SYMBICORT INHL (Self Reported) Prescription: uxsqrsweau-tdknozubsxddl-hivf (Self Reported) Prescription: sodium chloride (Self Reported) Prescription: oxyCODONE-acetaminophen (Self Reported) Prescription: dextrose 50% in water (Self Reported) Prescription: zbwyfudbzd-mbwqzviibtsws-jgss 50-325-40 mg Tab (Self Reported) Prescription: oxyCODONE-acetaminophen [...] (Self Reported) Prescription: Discharge Equipment: Insulin Pen [place] (Self Reported) Prescription: oxyCODONE-acetaminophen (Self Reported) Prescription: [...] (Self Reported) Prescription: Discharge Equipment: Insulin Pen [place] (Self Reported) Prescription: morphine (Self Reported) Prescription: [...] cyanocobalamin 500 mcg Tab (Self Reported) Prescription: HQGPgwqhbcppu-jzzeszwvvlj-svqnmsyg-scopoloamine (Self Reported) Prescription: fentaNYL (Self Reported) Prescription: [...] traMADoL-acetaminophen 37.5-325 mg Tab (Self Reported) Prescription: wdcwwyxacr-xqubojmzapvql-kwuh (Self Reported) Prescription: oxyCODONE-acetaminophen (Self Reported) Prescription: [...] 5-325 MG ORAL TAB (Self Reported) Prescription: XLPYSLMNAW-YKBLUXHDEREQA-WXGK 50-325-40 MG ORAL TAB (Self Reported) Prescription: EXENATIDE 5 MCG/0.02 ML SUBQ PNIJ (Self Reported) Prescription: GNGBSCHYWN-VGWLINCIRTFCM-AAMU 50-325-40 MG ORAL TAB (Self Reported) Prescription: [...] % IV BOLUS (Self Reported) Prescription: POTASSIUM RKXXPLC-U7-7.45%NACL 20 MEQ/L IV SOLP (Self Reported) Prescription: [...] 160-4.5 MCG/ACTUATION INHL HFAA (Self Reported) Prescription: ORCOQOXRDP-ORYJEQSFGKYXY-MVOG 50-325-40 MG ORAL TAB (Self Reported) Prescription: [...] ORAL TAB (Self Reported) External Note from [facility] Care Provider [phone], Dionicio Murrieta documented in this encounter Plan [...] documented as of this encounter Care Teams Audit Practice Intern Relationship Specialty Start Date End Date Aislinn [place] [address] PCP - General Family Medicine 04/26/19 03/10/22 Unassigned, DoctorMD [address] [place] [address] ANASTACIO Gupta [address] PCP - General Family Medicine 03/11/22 documented [...] or drug abuse patient. [facility] [employer] ([facility])
--- OUTSIDE RECORDS SUMMARY | 2025-06-24 18:22 | XMS_ITS | Encounter Summary ---
Author Organization [employer] ([employer]) Address [address] [place] [address] Care Team Providers Care Charge Manager Name Role Phone Naila Vallejo MD Primary Care Provider + Unassigned, Doctor RAMIREZ Primary Care Provider Unav ailable Mehnaz Obando NP Primary Care Provider [phone] [place] Joseph Srinivasan Primary Care Provide r Aislinn Merlos Primary Care Provider [phone] Unassigned, Doctor RAMIREZ Primary Care Provider Unav ailable Reason for Visit * Reason Comments Refill Request Encounter Details Date Type Department Care Team (Late st Contact Info) Description 09/17/2015 Refill [facility] [address] [id number] Naila Vallejo MD [address] [place] [address] Refill Request Social History Tobacco [...] documented as of this encounter Care Teams Charge Manager Relationship Specialty Start Date End Date Naila Vallejo MD PCP - General Family Medicine 09/20/13 04/01/17 Unassigned, MD Daniella PCP - General 04/02/17 09/09/17 Mehnaz Obando NP PCP - General Internal Medicine 09/10/17 03/01/19 Joseph Moraes [address] [place] [address] PCP - General Group provider 03/02/19 04/25/19 Aislinn Merlos PA [address] [place] [address] [place] [address] PCP - General Family Medicine [...] prosecute any alcohol or drug abuse patient. COUNTS INCLUDE [facility] BEDS AT [facility] [employer] ([facility])
[2025-06-24 18:32] VITALS: BP 133/84; PULSE 91; RESP 17; TEMP 36.9; O2SAT 97; BMI 44.6
[2025-06-24 20:03] LABS: Hematocrit 38.4 % (36-47); Hemoglobin 12.30 g/dL (11.27-16.99); Mean Corpuscular HGB Conc 32.0 g/dL (30-55); Mean Corpuscular Hemoglobin 27.5 pg (27-33); Mean Corpuscular Volume 85.7 fl (85-98); Nucleated Red Blood Cells % 0 %; Platelet Count 337 10^3/cmm (157-399); Red Blood Count 4.48 10^6/uL (3.85-5.65); White Blood Count 8.11 10^3/uL (3.29-11.43)
--- NOTE | 2025-06-24 20:10 | USR_ITS ---
PROCEDURE INFORMATION: Exam: US Left Limited Joint or Other Non-Vascular Extremity Structure Exam date and time: 06/24/2025 9:05 PM Age: 50 years old Clinical indication: Pain; Upper arm; This is the left neck- not arm. I was not given the choice of neck. Patient states she had a knife in her hand in the kitchen and fell on it. She received sutures on 06/20/2025. ; Additional info: Neck left side swollen underlying recent laceration TECHNIQUE: Imaging protocol: US left limited joint or other nonvascular extremity structure. Real-time ultrasound with image documentation. Exam focused on the area of clinical interest. COMPARISON: No relevant prior studies available. FINDINGS: Soft tissues: Tract fluid in the left neck in the area of several sutures appears to extend to the skin in the subcutaneous soft tissues measuring 11 x 6 x 5 mm, nonspecific. US/US soft tissue/extremity [address] IMPRESSION: Tract fluid in the left neck in the area of several sutures appears to extend to the skin in the subcutaneous soft tissues measuring 11 x 6 x 5 mm, nonspecific.
--- NOTE | 2025-06-24 20:19 | W.ED.WOUNDLC ---
HPI - Wound/Laceration General: Chief Complaint: Wound/Laceration Stated Complaint: knot on neck Time Seen by Provider: 06/24/25 19:30 History of Present Illness: 50-year-old female who presents to the emergency room concerned about laceration to her neck. Patient was seen 4 days ago had sutures placed. Had a full-thickness laceration to the left lateral neck there is no active bleeding. She is been applying topical antibiotic ointment to the wound. Related Data Home Medications ?Medication ?Instructions ?Recorded ?Confirmed fluoxetine 40 mg capsule 40 mg PO DAILY 06/06/25 06/23/25 Previous Rx's ?Medication ?Instructions ?Recorded tizanidine 4 mg tablet 4 mg PO Q6H PRN muscle spasticity 06/20/25 #20 tabs Allergies Allergy/AdvReac Type Severity Reaction Status Date / Time azithromycin Allergy Unknown Verified 06/24/25 18:38 duloxetine Allergy Unknown Verified 06/24/25 18:38 erythromycin base Allergy Unknown Verified 06/24/25 18:38 Gadolinium-Containing Allergy Unknown Verified 06/24/25 18:38 Contrast Medi influenza A (H1N1) virus Allergy Unknown Verified 06/24/25 18:38 vaccine m-pastor-split 2008 (From influenza A (H1N1)) Iodinated Contrast Media Allergy Unknown Verified 06/24/25 18:38 lactase Allergy Unknown Verified 06/24/25 18:38 latex Allergy Unknown Verified 06/24/25 18:38 metoclopramide Allergy Unknown Verified 06/24/25 18:38 montelukast Allergy Unknown Verified 06/24/25 18:38 nitroglycerin Allergy Unknown Verified 06/24/25 18:38 NSAIDS (Non-Steroidal Allergy Unknown Verified 06/24/25 18:38 Anti-Inflamma Penicillins Allergy Unknown Verified 06/24/25 18:38 prochlorperazine Allergy Unknown Verified 06/24/25 18:38 shellfish derived Allergy Unknown Verified 06/24/25 18:38 tapentadol Allergy Unknown Verified 06/24/25 18:38 [facility] Female Reproductive History: Date of last menstrual period: 06/24/25 Physical Exam Neck/C-Spine: OTHER: Wound edges well-approximated healing well there is no sign of skin breakdown or ulceration. The posterior aspect of the wound the sutures have been abraded and are no longer secured. Wound itself is healing well there is no erythema no infection there is a palpable subcutaneous nodule not present as time sutures were placed. No fluctuance. Course Vital Signs: Vital signs: Vital Signs Temperature 98.5 F 06/24/25 18:32 Pulse Rate 82 06/24/25 21:16 Respiratory Rate 17 06/24/25 18:32 Blood Pressure 131/83 06/24/25 21:16 Pulse Oximetry 96 06/24/25 21:16 Oxygen Delivery Me thod Room Air 06/24/25 18:32 MDM - Wound/Laceration Medical Decision Making Ultrasound shows what appears to be a small seroma. There is no sign of infection surface of the wound there is no drainage. Continue topical antibiotic ointment and follow-up with primary care to remove the remainder of the sutures next week. Lab Data 06/24/25 19:57 06/24/25 19:57 Radiology Impressions Soft Tissue Ultrasound 06/24/25 20:10 IMPRESSION: Tract fluid in the left neck in the area of several sutures appears to extend to the skin in the subcutaneous soft tissues measuring 11 x 6 x 5 mm, nonspecific. Laboratory Results WBC 8.11 10^3/uL (3.29-11.43) 06/24/25 19:57 RBC 4.48 10^6/uL (3.85-5.65) 06/24/25 19:57 Hgb 12.30 g/dL (11.27-16.99) 06/24/25 19:57 Hct 38.4 % (36-47) 06/24/25 19:57 MCV 85.7 fl (85-98) 06/24/25 19:57 MCH 27.5 pg (27-33) 06/24/25 19:57 MCHC 32.0 g/dL (30-55) 06/24/25 19:57 RDW 14.1 % (12.1-15.1) 06/24/25 19:57 Plt Count 337 10^3/cmm (157-399) 06/24/25 19:57 MPV 9.2 fL (7.4-10.4) 06/24/25 19:57 Neut % (Auto) 62.5 % 06/24/25 19:57 Lymph % (Auto) 25.6 % 06/24/25 19:57 [place] % (Auto) 8.1 % 06/24/25 19:57 Eos % (Auto) 3.1 % 06/24/25 19:57 Baso % (Auto) 0.6 % 06/24/25 19:57 Neut # (Auto) 5.06 10^3/uL (1.8-7.7) 06/24/25 19:57 Lymph # (Auto) 2.1 10^3/uL (0.8-4.8) 06/24/25 19:57 [place] # (Auto) 0.7 10^3/uL (0.2-0.9) 06/24/25 19:57 Eos # (Auto) 0.3 10^3/uL (0.0-0.8) 06/24/25 19:57 Baso # (Auto) 0.1 10^3/uL (0.0-0.1) 06/24/25 19:57 Nucleated RBC % (auto) 0 % 06/24/25 19:57 Nucleated RBCs # 0.0 /100WBC 06/24/25 19:57 Sodium 139 mmol/L (136-145) 06/24/25 19:57 Potassium 3.5 mmol/L (3.5-5.1) 06/24/25 19:57 Chloride 102 mmol/L (98-107) 06/24/25 19:57 Carbon Dioxide 23 mmol/L (22-29) 06/24/25 19:57 Anion Gap 17.5 (5-19) 06/24/25 19:57 BUN 11 mg/dL (6-20) 06/24/25 19:57 Creatinine 0.8 mg/dL (0.5-0.9) 06/24/25 19:57 GFR Calculation 76.2 mL/min (90-130) L 06/24/25 19:57 Glucose 114 mg/dL (65-115) 06/24/25 19:57 Calculated Osmolality 288 mOsm/kg (285-295) 06/24/25 19:57 Calcium 8.9 mg/dL (8.5-10.5) 06/24/25 19:57 All radiology interpretation(s) finalized by discharge Discharge Plan Discharge Patient Disposition: Home Clinical Impression: Laceration, Seroma Condition: Stable Prescriptions: No Action fluoxetine [Prozac] 40 mg Capsule 40 mg PO DAILY tizanidine 4 mg tablet 4 mg PO Q6H PRN (Reason: muscle spasticity) Qty: 20 0RF Rx Instructions: do not exceed 3 doses per 24 hrs Discharge Orders: Discharge ED (Routine); Ordered 06/24/25 Ordered By: Russ Byrd Discharge Diet: Usual diet Discharge Activity: Resume usual activity Patient Instructions: Opioid Safety, Pain Management, Patient Portal & Vipin Instructions Activity Restrictions/Additional Instructions: Thank you for choosing [facility] for your healthcare needs today. It is very important that you follow up as instructed or that you return to the Emergency Department should you have concerns or if your condition changes or worsens in any way. Emergency department visits are focused on emergent conditions, in some cases you may require further evaluation on an outpatient basis. You were seen in the emergency room with concerns in the area of laceration. Your white count is normally also there is no sign infection at the site of the laceration. Ultrasound shows a small fluid collection appears to be a seroma. This will reabsorb on its own over time. (Please note that included in your discharge packet is information concerning opioid safety and pain management. This information is given to all patients were discharged from the ER regardless of their discharge diagnosis or the medicines they usually take or are prescribed.) Print Language: Pashto Coding Level of Care Code ED Health Informatics Instructor for Jasper Hester
[2025-06-24 20:32] LABS: Anion Gap 17.5 (5-19); Blood Urea Nitrogen 11 mg/dL (6-20); Calcium 8.9 mg/dL (8.5-10.5); Carbon Dioxide 23 mmol/L (22-29); Chloride 102 mmol/L (98-107); Glucose 114 mg/dL (65-115); Osmolality Calculated 288 mOsm/kg (285-295); Potassium 3.5 mmol/L (3.5-5.1); Sodium 139 mmol/L (136-145)
[2025-06-24 21:16] VITALS: BP 131/83; PULSE 82; O2SAT 96
== END 2025-06-24 21:17 | disposition home or self-care (01) ==
PROVIDERS: Emergency Provider Family Medicine
DX: S11.91XD Laceration without foreign body of unspecified part of neck, subsequent encounter (principal); L76.34 Postprocedural seroma of skin and subcutaneous tissue following other procedure; X58.XXXD Exposure to other specified factors, subsequent encounter
CPT/HCPCS: 76882; 80048; 85025; 99284

== ENCOUNTER 2025-06-27 17:14 | Emergency (ER) | payer MEDICAID, SELFPAY ==
--- OUTSIDE RECORDS SUMMARY | 2024-04-16 05:00 | XMS_ITS ---
Author Organization [facility] [address] Address [address] [facility] [address] [place] [address] Care Team Providers Care Battery Hand Name Role Phone Sunni Ramon Primary Care Provider Benoit Chance Unavailable [phone] Mike Diego Unavailable [phone] REASON FOR VISIT B/L Arm Medications Medication [...] W/U Status Risk Notes Problem Lumbar radiculopathy ([id number]) Radiculopat hy, lumbar region (M54.16) Active confirmed Encounters Encounter Location Date Provider Diagnosis [facility] [address] [place] [address] 04/16/2024 Mike Diego Radiculopathy, lumbar region M54.16 Assessments Encounter Date Diagnosis (ICD Code) Assessment Notes Treatment Notes Treatment Clinical Notes Section Notes 04/16/2024 Radiculopathy, lumbar region (ICD-10 - M54.16) Plan Of Treatment No Information Progress Notes * Cyrus SWANSONАннаOB:1975 (50 yo F)Acc No.[id number]:04/16/2024 Patient: Georgia Hong Provider: Vijaya Diego DO :1975 A ge:48 Y S ex:Female Date:04/16/2024 Address:[address] [place], [place] [phone] Pcp:Sunni Ramon Subjective: * Chief Complaints: * [...] Procedure Codes: 9 5886 Needle electromyography, each [id number] NRV CNDJ TEST 9-10 STUDIES Billing Information: * Procedure Codes: 29959 Needle electromyography, each extremity. 74404 NRV CNDJ TEST 9-10 STUDIES. * Electronic signature of Mike Diego DO on 06/27/2025 at 06:20 PM EST Sign off status: Pending * Provider: Vijaya Diego DO Date: Generated for Xenia valdez/Fabio/Maude on: 06:20 PM EST
--- OUTSIDE RECORDS SUMMARY | 2024-04-19 05:20 | XMS_ITS ---
Author Organization [facility] [address] Address [address] [facility] [address] [place] [address] Care Team Providers Care Sales Expert Name Role Phone Sunni Ramon Primary Care Provider Benoit Chance [phone] REASON FOR VISIT No Physical Therapy Social History Sex Assigned At : Social History Observation Description Sex Assigned At Female Encounters Encounter Location Date Provider Diagnosis [facility] [address] [facility] [place] [address] 04/19/2024 Benoit Patton Plan Of Treatment No Information Progress Notes * Wily SWANSONOB:1975 (50 yo F)Acc No.[id number]:04/19/2024 Progress Note Patient: Georgia Hong Provider: GIANNI Wilcox :1975 A ge:48 Y S ex:Female Date:04/19/2024 Address:[address] [place], [place] [phone] Pcp:Sunni Ramon Subjective: * Chief Complaints: * N o Physical Therapy Billing Information: * Procedure Codes: * Electronic signature of TRICE Mathis on 06/27/2025 at 06:20 PM EST Sign off status: Pending * Provider: GIANNI Wilcox Date: Generated for Printi ng/Faxing/eTransmitting on: 06:20 PM EST
--- OUTSIDE RECORDS SUMMARY | 2024-06-16 07:30 | XMS_ITS ---
Author Organization [facility] Address [address] [place] [address] Care Team Providers Care Thin Film Technician Name Role Phone Benedicto Talley MD Unavailable Unavailable Migration, Provider Unavailable Unavailable REASON FOR VISIT Follow Up Visit Encounters Encounter Location Date Provider Diagnosis [facility] [address] [place] [address] 06/16/2024 Provider Migration Plan Of Treatment No Information Progress Notes * Georgia ARAGONDOB:[birth year] (50 yo F)Acc No.[id number]:06/16/2024 Progress Notes Patient: Geo godinezGeorgia Provider: Km Frank :1975 A ge:49 Y S ex:Female Date:06/16/2024 Address:[address] [place] [address] Subjective: * Chief Complaints: * F ollow Up Visit * Electronic signature of Prov ider Migration on 06/27/2025 at 06:19 PM EST Sign off status: Pending * Provider: Km to Migration Date: 08/17/2023 Generated for Xenia valdez/Fabio/eTransmitting on: 06:19 PM EST
--- OUTSIDE RECORDS SUMMARY | 2024-07-08 04:10 | XMS_ITS ---
Author Organization [facility] [address] Address [address] [facility] [address] [place] [address] Care Team Providers Care Geek Squad Manager Name Role Phone Sunni Ramon Primary Care Provider Benoit Chance [phone] REASON FOR VISIT Pt Personal Reasons Social History Sex Assigned At : Social History Observation Description Sex Assigned At Female Encounters Encounter Location Date Provider Diagnosis [facility] [address] [facility] [place] [address] 07/08/2024 Benoit Patton Plan Of Treatment No Information Progress Notes * Wily SWANSONOB:1975 (50 yo F)Acc No.[id number]:07/08/2024 Progress Note Patient: Georgia Hong Provider: GIANNI Wilcox :1975 A ge:49 Y S ex:Female Date:07/08/2024 Address:[address] [place], [place] [phone] Pcp:Sunni Ramon Subjective: * Chief Complaints: * P t Personal Reasons Billing Information: * Procedure Codes: * Electronic signature of TRICE Mathis on 06/27/2025 at 06:21 PM EST Sign off status: Pending * Provider: GIANNI Wilcox Date: 0 07/08/2024 Generated for Printi ng/Faxing/eTransmitting on: 1 06:21 PM EST
--- OUTSIDE RECORDS SUMMARY | 2024-08-02 05:00 | XMS_ITS ---
Author Organization [facility] Address [address] [place] [address] Care Team Providers Care Plate Worker Helper Name Role Phone Benedicto Talley MD Unavailable [...] 08/02/2024 Encounters Encounter Location Date Provider Diagnosis [facility] [address] [place] [address] 08/02/2024 Provider Migration Plan Of Treatment No Information Progress Notes * Georgia ARAGONDOB:[birth year] (50 yo F)Acc No.[id number]:08/02/2024 Progress Notes Patient: Geo Georgia godinez Provider: Km Frank :1975 A ge:49 Y S ex:Female Date:08/02/2024 Address:[address] [place], [place] [phone] Subjective: * Chief Complaints: * O ffice Visit Objective: * Vitals: B P: 102/72 mm Hg, HR: 88 /min, Temp: 98.10 F, Oxygen sat %: 99 %, Wt: 253.0000 lbs, Wt-k.76 kg, Ht: 64.00 in, Ht-cm: 162.56 cm, BMI: 43.42 Index. Plan: * Procedure Codes: 3 078F DIAST BP < 80 MM [id number] SYST BP LT 130 MM [id number] BODY MASS INDEX DOCD Billing Information: * Procedure Codes: 3078F DIAST BP < 80 MM HG. 3074F SYST BP LT 130 MM HG. 3008F BODY MASS INDEX DOCD. * Electronic signature of Prov ider Migration on 06/27/2025 at 06:20 PM EST Sign off status: Pending * Provider: Km to Migration Date: 0 08/02/2024 Generated for Xenia valdez/Fabio/Maude on: 1 06:20 PM EST
--- OUTSIDE RECORDS SUMMARY | 2024-09-06 03:30 | XMS_ITS ---
Author Organization [facility] Address [address] [place] [address] Care Team Providers Care Division Plant Engineer Name Role Phone Benedicto Talley MD Unavailable Unavailable Migration, Provider Unavailable Unavailable REASON FOR VISIT Follow Up Visit Vital Signs Temperature 98.70 degrees Fahrenheit 025 Blood pressure systolic 124 mm Hg 09/07/19 25 Blood pressure diastolic 80 mm Hg 025 Heart Rate 94 /min 09/06/2024 Height 64.00 in 09/06/2024 Weight 250.0000 lbs 09/06/2024 BMI 42.91 kg/m2 09/06/2024 Oximetry 98 % 09/06/2024 Height-cm 162.56 cm 09/06/2024 Weight-kg 113.40 kg 09/06/2024 Encounters Encounter Location Date Provider Diagnosis [facility] [address] [place] [address] 09/06/2024 Provider Migration Plan Of Treatment No Information Progress Notes * Georgia ARAGONDOB:[birth year] (50 yo F)Acc No.[id number]:09/06/2024 Progress Notes Patient: Geo Georgia godinez Provider: Km to Migration :1975 A ge:49 Y S ex:Female Date:09/06/2024 Address:[address] [place], [place] [phone] Subjective: * Chief Complaints: * F ollow Up Visit Objective: * Vitals: B P: 124/80 mm Hg, HR: 94 /min, Temp: 98.70 F, Oxygen sat %: 98 %, Wt: 250.0000 lbs, Wt-k.40 kg, Ht: 64.00 in, Ht-cm: 162.56 cm, BMI: 42.91 Index. Plan: * Procedure Codes: 3 008F BODY MASS INDEX DOCD Billing Information: * Procedure Codes: 3008F BODY MASS INDEX DOCD. * Electronic signature of Prov ider Migration on 06/27/2025 at 06:23 PM EST Sign off status: Pending * Provider: Km to Migration Date: 0 09/06/2024 Generated for Xenia valedz/Fabio/Rolandoitting on: 1 06:23 PM EST
--- OUTSIDE RECORDS SUMMARY | 2024-10-02 04:45 | XMS_ITS ---
Author Organization [facility] Address [address] [place] [address] Care Team Providers Care Woolen Tester Name Role Phone Benedicto Talley MD Unavailable Unavailable DR. Benedicto Talley Unavailable [phone] REASON FOR VISIT Walk-in Appointment Vital Signs Temperature 98.40 degrees Fahrenheit 025 Blood pressure systolic 130 mm Hg 10/03/19 25 Blood pressure diastolic 78 mm Hg 025 Heart Rate 85 /min 10/02/2024 Height 64.00 in 10/02/2024 Weight 250.2000 lbs 10/02/2024 BMI 42.94 kg/m2 10/02/2024 Oximetry 99 % 10/02/2024 Height-cm 162.56 cm 10/02/2024 Weight-kg 113.49 kg 10/02/2024 Encounters Encounter Location Date Provider Diagnosis [facility] [address] [place] [address] 10/02/2024 Benedicto Talley Plan Of Treatment No Information Progress Notes * Georgia ARAGONDOB:[birth year] (50 yo F)Acc No.[id number]:10/02/2024 Patient: Geo godinez Georgia Meza Provider: Georgia Talley MD :1975 A ge:49 Y S ex:Female Date:10/02/2024 Address:[address] [place], [place] [phone] Subjective: * Chief Complaints: * W alk-in Appointment Objective: * Vitals: B P: 130/78 mm Hg, HR: 85 /min, Temp: 98.40 F, Oxygen sat %: 99 %, Wt: 250.2000 lbs, Wt-k.49 kg, Ht: 64.00 in, Ht-cm: 162.56 cm, BMI: 42.94 Index. * Electronic signature of DR. Benedicto Talley MD on 06/27/2025 at 06:20 PM EST Sign off status: Pending * Provider: Georgia Talely MD Date: 0 10/02/2024 Generated for Xenia valdez/Fabio/Rolandoitting on: 1 06:20 PM EST
--- OUTSIDE RECORDS SUMMARY | 2024-10-02 04:45 | XMS_ITS ---
Author Organization [facility] are Address [address] [place] [address] Care Team Providers Care Mattress Packer Name Role Phone Tristen Trish Sunni Primary Care Provider Benedicto Talley MD Unavailable Unavailable DR. Benedicto Talley Unavailable [phone] REASON FOR VISIT Walk-in Appointment Vital Signs Temperature 98.40 degrees Fahrenheit 025 Blood pressure systolic 130 mm Hg 10/03/19 25 Blood pressure diastolic 78 mm Hg 025 Heart Rate 85 /min 10/02/2024 Height 64.00 in 10/02/2024 Weight 250.2000 lbs 10/02/2024 BMI 42.94 kg/m2 10/02/2024 Oximetry 99 % 10/02/2024 Height-cm 162.56 cm 10/02/2024 Weight-kg 113.49 kg 10/02/2024 Encounters Encounter Location Date Provider Diagnosis [facility] [address] [place] [address] 10/02/2024 Benedicto Talley Plan Of Treatment No Information Progress Notes * Georgia ARAGONDOB:[birth year] (50 yo F)Acc No.[id number]:10/02/2024 Progress Notes Patient: Geo godinez Georgia Meza Provider: Georgia Talley MD :1975 A ge:49 Y S ex:Female Date:10/02/2024 Address:[address] [place], [place] [phone] Pcp:MRS. Sunni Ramon Subjective: * Chief Complaints: * W alk-in Appointment Objective: * Vitals: B P: 130/78 mm Hg, HR: 85 /min, Temp: 98.40 F, Oxygen sat %: 99 %, Wt: 250.2000 lbs, Wt-k.49 kg, Ht: 64.00 in, Ht-cm: 162.56 cm, BMI: 42.94 Index. * Electronic signature of DR. Benedicto Talley MD on 06/27/2025 at 06:23 PM EST Sign off status: Pending * Provider: Georgia Talley MD Date: 0 10/02/2024 Generated for Xenia valdez/Fabio/Rolandoitting on: 1 06:23 PM EST
--- OUTSIDE RECORDS SUMMARY | 2024-10-05 03:00 | XMS_ITS ---
Author Organization [facility] are Address [address] [place] [address] Care Team Providers Care School Child Care Attendant Name Role Phone MRS. Sunni Ramon Primary Care Provider Benedicto Talley MD Unavailable Unavailable Results Component Value Reference Range Notes BLOOD GLUCOSE-HOME MONITOR ( 57217) Reviewed date:10/05/2024 12:00:00 AM Interpretation: Performing Lab: Notes/Report: BLOOD GLUCOSE-HOME MONITOR 83 NR URINALYSIS W/O MICROSCOPY (7 1002) Reviewed date:10/05/2024 12:00:00 AM Interpretation: Performing [...] Vaccine Route Administration [place] 97877 TDAP IM Intramuscular 10/05/2024 Pending ,Immuniz ationName,' : Tdap (7 years and up) (50676) ,Status,' : Ordered Vital Signs Temperature 98.50 degrees Fahrenheit 025 Blood pressure systolic 120 mm Hg 10/06/19 25 Blood pressure diastolic 80 mm Hg 025 Heart Rate 76 /min 10/05/2024 Height 64.00 in 10/05/2024 Weight 243.6000 lbs 10/05/2024 BMI 41.81 kg/m2 10/05/2024 Oximetry 99 % 10/05/2024 Height-cm 162.56 cm 10/05/2024 Weight-kg 110.50 kg 10/05/2024 Encounters Encounter Location Date Provider Diagnosis [facility] [address] [place] [address] 10/05/2024 Sunni Ramon Plan Of Treatment No Information Progress Notes * Georgia ARAGON JDOB:[birth year] (50 yo F)Acc No.[id number]:10/05/2024 Progress Notes Patient: Georgia Hong Provider: CITLALLI Delgado :1975 A ge:49 Y S ex:Female Date:10/05/2024 Address:[address] [place], [place] [phone] Subjective: * Chief Complaints: * A nnual Physical * Ocular Surgical History: Objective: * Vitals: B P: 120/80 mm Hg, HR: 76 /min, Temp: 98.50 F, Oxygen sat %: 99 %, Wt: 243.6000 lbs, Wt-k.50 kg, Ht: 64.00 in, Ht-cm: 162.56 cm, BMI: 41.81 Index. Vision Examination: Plan: * Treatment: Value Reference Range B LOOD GLUCOSE-HOME MONITOR 83 NR ?LAB: URINALYSIS W/O MICROSCOPY (91731) (Collection Date & Time - 10/05/2024)* Value [...] - URINE SEDIMENT x NR * Immunizations: 90172 TDAP (Route: Intramuscular) (Pending) * Labs: * L ab: BLOOD GLUCOSE-HOME MONITOR (86388) (Collection Date & Time - 10/05/2024) Value Reference Range B LOOD GLUCOSE-HOME MONITOR 83 NR * BLOOD GLUCOSE-HOME MONITOR: AbnormalFlags: N ?Lab: URINALYSIS W/O MICROSCOPY (03709) (Collection Date & Time - 10/05/2024)* Value [...] N * Procedure Codes: 9 0471 IMMUNIZATION [id number] TDAP VACCINE >7 [id number] DIAST BP 80-89 MM [id number] SYST BP LT 130 MM [id number] BODY MASS INDEX [id number] BRIEF EMOTIONAL/BEHAV ASSMT Billing Information: * Procedure Codes: 89755 IMMUNIZATION ADMIN. 16692 TDAP VACCINE >7 IM. 3079F DIAST BP 80-89 MM HG. 3074F SYST BP LT 130 MM HG. 3008F BODY MASS INDEX DOCD. 39819 BRIEF EMOTIONAL/BEHAV ASSMT. * Electronic signature of MRS. Moeller GIANNI Ramon on 06/27/2025 at 06:21 PM EST Sign off status: Pending * Provider: CITLALLI Delgado Date: 0 10/05/2024 Generated for Xenia valdez/Fabio/Maude on: 1 06:21 PM EST
--- OUTSIDE RECORDS SUMMARY | 2024-10-05 03:00 | XMS_ITS ---
Author Organization [facility] Address [address] [place] [address] Care Team Providers Care Cafeteria Supervisor Name Role Phone Benedicto Talley MD Unavailable Unavailable Migration, Provider Unavailable Unavailable REASON FOR VISIT Annual Physical Immunizations Vaccine Route Administration Date [place]ts 25538 Tdap OTH Other/Miscellaneous 10/05/2024 Pending ,ImmunizationName,' : Tdap (7 years and up) (93413) ,Status,' : Ordered Source Location: <Undefined> Vital Signs Temperature 98.50 degrees Fahrenheit 025 Blood pressure systolic 120 mm Hg 10/06/19 25 Blood pressure diastolic 80 mm Hg 025 Heart Rate 76 /min 10/05/2024 Height 64.00 in 10/05/2024 Weight 243.6000 lbs 10/05/2024 BMI 41.81 kg/m2 10/05/2024 Oximetry 99 % 10/05/2024 Height-cm 162.56 cm 10/05/2024 Weight-kg 110.50 kg 10/05/2024 Encounters Encounter Location Date Provider Diagnosis [facility] [address] [place] [address] 10/05/2024 Provider Migration Plan Of Treatment No Information Progress Notes * Georgia ARAGONDOB:[birth year] (50 yo F)Acc No.[id number]:10/05/2024 Progress Notes Patient: Geo Georgia godinez Provider: Km to Migration :1975 A ge:49 Y S ex:Female Date:10/05/2024 Address:[address] [place], [place] [phone] Subjective: * Chief Complaints: * A nnual Physical * Ocular Surgical History: Objective: * Vitals: B P: 120/80 mm Hg, HR: 76 /min, Temp: 98.50 F, Oxygen sat %: 99 %, Wt: 243.6000 lbs, Wt-k.50 kg, Ht: 64.00 in, Ht-cm: 162.56 cm, BMI: 41.81 Index. Vision Examination: Plan: * Immunizations: 89220 Tdap (Route: Other/Miscellaneous) (Pending) * Procedure Codes: 9 0471 IMMUNIZATION [id number] TDAP VACCINE >7 [id number] DIAST BP 80-89 MM PL7425C SYST BP LT 130 MM AD4634U BODY MASS INDEX [id number] BRIEF EMOTIONAL/BEHAV ASSMT Billing Information: * Procedure Codes: 72895 IMMUNIZATION ADMIN. 93060 TDAP VACCINE >7 IM. 3079F DIAST BP 80-89 MM HG. 3074F SYST BP LT 130 MM HG. 3008F BODY MASS INDEX DOCD. 43187 BRIEF EMOTIONAL/BEHAV ASSMT. * Electronic signature of Prov ider Migration on 06/27/2025 at 06:22 PM EST Sign off status: Pending * Provider: Km to Migration Date: 0 10/05/2024 Generated for Xenia valdez/Fabio/Rolandoitting on: 1 06:22 PM EST
--- OUTSIDE RECORDS SUMMARY | 2024-10-05 04:10 | XMS_ITS ---
Author Organization [facility] Address [address] [facility] [address] [place] [address] Care Team Providers Care Sign Artist Name Role Phone Sunni Ramon Primary Care Provider Benoit Chance [phone] REASON FOR VISIT C Misc Reason Medications Medication SIG (Take, Route, Frequency, Duration) Notes Start Date End Date Status Dulera 100-5 MCG/ACT Aerosol inhale TWO puffs TWICE DAILY Inhalation; Duration: 30 Days Active Farxiga Active Insulin Glargine-yfgn 100 UNIT/ML Solution Pen-injector take 20 units UNDER SKIN AT BEDTIME Subcutaneous; Duration: 75 Days Active FreeStyle Philip 2 Sensor - Miscellaneous USE ONE sensor replace sensor EVERY 14 DAYS; Duration: 28 Days Active Lisinopril 10 MG Tablet 1 tablet Orally Once a day; Duration: 30 day(s) 03/08/2024 Active Cyclobenzaprine HCl 5 MG Tablet TAKE ONE TABLET BY MOUTH TWO TO THREE times DAILY NEEDED FOR MUSCLE SPASMS; MAY cause sedation Oral; Duration: 30 Days Active Ozempic (0.25 or 0.5 MG/DOSE) 2 MG/3ML Solution Pen-injector INJECT 0.25 MG SUBCUTANEOUSLY EVERY WEEK FOR FOUR WEEKS THEN increase TO 0.5 MG EVERY WEEK Subcutaneous; Duration: 28 Days Active Tylenol 325 MG Tablet 1 tablet as needed Orally every 6 hrs 02/17/2024 Active Social History Sex Assigned At : Social History Observation Description Sex Assigned At Female Encounters Encounter Location Date Provider Diagnosis [facility] [address] [facility] [place] [address] 10/05/2024 Benoit Patton Plan Of Treatment No Information Progress Notes * Wily SWANSONOB:1975 (50 yo F)Acc No.[id number]:10/05/2024 Progress Note Patient: Georgia Hong Provider: GIANNI Wilcox :1975 A ge:49 Y S ex:Female Date:10/05/2024 Address:[address] [place], [place] [phone] Pcp:Sunni Ramon Subjective: * Chief Complaints: * C Misc Reason * Medications: T akingFarxiga Dulera 100-5 MCG/ACT Aerosol inhale TWO puffs TWICE DAILY Inhalation FreeStyle Philip 2 Sensor - Miscellaneous USE ONE sensor replace sensor EVERY 14 DAYS Insulin Glargine-yfgn 100 UNIT/ML Solution Pen-injector take 20 units UNDER SKIN AT BEDTIME Subcutaneous Ozempic (0.25 or 0.5 MG/DOSE) 2 MG/3ML Solution Pen- injector INJECT 0.25 MG SUBCUTANEOUSLY EVERY WEEK FOR FOUR WEEKS THEN increase TO 0.5 MG EVERY WEEK Subcutaneous Cyclobenzaprine HCl 5 MG Tablet TAKE ONE TABLET BY MOUTH TWO TO THREE times DAILY NEEDED FOR MUSCLE SPASMS; MAY cause sedation Oral Tylenol 325 MG Tablet 1 tablet as needed Orally every 6 hrs Lisinopril 10 MG Tablet 1 tablet Orally Once a day Taking Farxiga Taking Dulera 100-5 MCG/ACT Aerosol inhale TWO puffs TWICE DAILY Inhalation Taking FreeStyle Philip 2 Sensor - Miscellaneous USE ONE sensor replace sensor EVERY 14 DAYS Taking Insulin Glargine-yfgn 100 UNIT/ML Solution Pen-injector take [...] Tablet 1 tablet Orally Once a day * Electronic signature of TRICE Mathis on 06/27/2025 at 06:21 PM EST Sign off status: Pending * Provider: GIANNI Wilcox Date: 0 10/05/2024 Generated for Xenia Munoz/Maude on: 1 06:21 PM EST
--- OUTSIDE RECORDS SUMMARY | 2024-10-14 04:00 | XMS_ITS ---
Author Organization [facility] Address [address] [place] [address] Care Team Providers Care Pull Over Name Role Phone Benedicto Talley MD Unavailable Unavailable Migration, Provider Unavailable Unavailable REASON FOR VISIT Annual Physical Encounters Encounter Location Date Provider Diagnosis [facility] [address] [place] [address] 10/14/2024 Provider Migration Plan Of Treatment No Information Progress Notes * [place] ARAGONDOB:[birth year] (50 yo F)Acc No.[id number]:10/14/2024 Progress Notes Patient: Geo godinezGeorgia Provider: Km Frank :1975 A ge:49 Y S ex:Female Date:10/14/2024 Address:[address] [place] [address] Subjective: * Chief Complaints: * A nnual Physical * Ocular Surgical History: Objective: Vision Examination: * Electronic signature of Prov ider Migration on 06/27/2025 at 06:22 PM EST Sign off status: Pending * Provider: Km to Migration Date: 0 10/14/2024 Generated for Xenia valdez/Fabio/Maude on: 1 06:22 PM EST
--- OUTSIDE RECORDS SUMMARY | 2024-10-14 04:00 | XMS_ITS ---
Author Organization [facility] are Address [address] [place] [address] Care Team Providers Care Surgical Scrub Technician Name Role Phone MRS. Sunni Ramon Primary Care Provider Benedicto Talley MD Unavailable REASON FOR VISIT Annual Physical Encounters Encounter Location Date Provider Diagnosis [facility] [address] [place] [address] 10/14/2024 Sunni Ramon Plan Of Treatment No Information Progress Notes * SWANSON, [place] JDOB:[birth year] (50 yo F)Acc No.[id number]:10/14/2024 Progress Notes Patient: [place] Hong Provider: CITLALLI Delgado :1975 A ge:49 Y S ex:Female Date:10/14/2024 Address:[address] [place] [address] Subjective: * Chief Complaints: * A nnual Physical * Ocular Surgical History: Objective: Vision Examination: * Electronic signature of MRS. Moeller GIANNI Ramon on 06/27/2025 at 06:23 PM EST Sign off status: Pending * Provider: CITLALLI Delgado Date: 0 10/14/2024 Generated for Xenia valdez/Fabio/eTransmitting on: 1 06:23 PM EST
--- OUTSIDE RECORDS SUMMARY | 2024-11-04 03:00 | XMS_ITS ---
Author Organization [facility] Address [address] [place] [address] Care Team Providers Care Java Spring Developer Name Role Phone Benedicto Talley MD [...] 11/04/2024 Encounters Encounter Location Date Provider Diagnosis [facility] [address] [place] [address] 11/04/2024 Provider Migration Plan Of Treatment No Information Progress Notes * [place] ARAGONDOB:[birth year] (50 yo F)Acc No.[id number]:11/04/2024 Progress Notes Patient: Geo [place] godinez Provider: Km to Migration :1975 A ge:49 Y S ex:Female Date:11/04/2024 Address:[address] [place], [place] [id number] Subjective: * Chief Complaints: * F ollow Up Visit Objective: * Vitals: B P: 122/84 mm Hg, HR: 90 /min, Temp: 98.40 F, Oxygen sat %: 97 %, Wt: 239.0000 lbs, Wt-k.41 kg, Ht: 64.00 in, Ht-cm: 162.56 cm, BMI: 41.02 Index. Plan: * Procedure Codes: 3 079F DIAST BP 80-89 MM [id number] SYST BP LT 130 MM [id number] BODY MASS INDEX DOCD Billing Information: * Procedure Codes: 3079F DIAST BP 80-89 MM HG. 3074F SYST BP LT 130 MM HG. 3008F BODY MASS INDEX DOCD. * Electronic signature of Prov ider Migration on 06/27/2025 at 06:19 PM EST Sign off status: Pending * Provider: Km to Migration Date: 0 11/04/2024 Generated for Xneia valdez/Fabio/Maude on: 1 06:19 PM EST
--- OUTSIDE RECORDS SUMMARY | 2024-11-04 03:00 | XMS_ITS ---
Author Organization [facility] are Address [address] [place] [address] Care Team Providers Care Embossing Toolsetter Name Role Phone RamonMRS. ирина Sunni Primary [...] 11/04/2024 Encounters Encounter Location Date Provider Diagnosis [facility] [address] [place] [address] 11/04/2024 Sunni Ramon Plan Of Treatment No Information Progress Notes * [place] ARAGONDOB:[birth year] (50 yo F)Acc No.[id number]:11/04/2024 Progress Notes Patient: Geo godinez [place] Meza Provider: CITLALLI Delgado :1975 A ge:49 Y S ex:Female Date:11/04/2024 Address:[address] [place], [place] [phone] Subjective: * Chief Complaints: * F ollow Up Visit Objective: * Vitals: B P: 122/84 mm Hg, HR: 90 /min, Temp: 98.40 F, Oxygen sat %: 97 %, Wt: 239.0000 lbs, Wt-k.41 kg, Ht: 64.00 in, Ht-cm: 162.56 cm, BMI: 41.02 Index. Plan: * Procedure Codes: 3 079F DIAST BP 80-89 MM [id number] SYST BP LT 130 MM [id number] BODY MASS INDEX DOCD Billing Information: * Procedure Codes: 3079F DIAST BP 80-89 MM HG. 3074F SYST BP LT 130 MM HG. 3008F BODY MASS INDEX DOCD. * Electronic signature of GIANNI Porter on 06/27/2025 at 06:21 PM EST Sign off status: Pending * Provider: CITLALLI Delgado Date: 0 11/04/2024 Generated for Xenia valdez/Fabio/Maude on: 1 06:21 PM EST
--- OUTSIDE RECORDS SUMMARY | 2025-01-06 03:30 | XMS_ITS ---
Author Organization [facility] are Address [address] [place] [address] Care Team Providers Care Drum Printer Name Role Phone MRS. Sunni Ramon Primary Care Provider [phone] Benedicto Talley MD Unavailable REASON FOR VISIT Follow Up Visit Encounters Encounter Location Date Provider Diagnosis [facility] [address] [place] [address] 01/06/2025 Sunni Ramon Plan Of Treatment No Information Progress Notes * SWANSONGeorgiaDOB:[birth year] (50 yo F)Acc No.[id number]:01/06/2025 Progress Notes Patient: Georgia Hong Provider: CITLALLI Delgado :1975 A ge:49 Y S ex:Female Date:01/06/2025 Address:[address] [place], [place] [phone] Subjective: * Chief Complaints: * F ollow Up Visit * Electronic signature of MRS. Moeller GIANNI Ramon on 06/27/2025 at 06:19 PM EST Sign off status: Pending * Provider: CITLALLI Delgado Date: 0 01/06/2025 Generated for Xenia valdez/Fabio/eTransmitting on: 1 06:19 PM EST
--- OUTSIDE RECORDS SUMMARY | 2025-01-06 03:30 | XMS_ITS ---
Author Organization [facility] Address [address] [place] [address] Care Team Providers Care Kettle Operator Name Role Phone Benedicto Talley MD Unavailable Unavailable Migration, Provider Unavailable Unavailable REASON FOR VISIT Follow Up Visit Encounters Encounter Location Date Provider Diagnosis [facility] [address] [place] [address] 01/06/2025 Provider Migration Plan Of Treatment No Information Progress Notes * [place] ARAGONDOB:[birth year] (50 yo F)Acc No.[id number]:01/06/2025 Progress Notes Patient: Geo godinezGeorgia Provider: Km Frank :1975 A ge:49 Y S ex:Female Date:01/06/2025 Address:[address] [place] [address] Subjective: * Chief Complaints: * F ollow Up Visit * Electronic signature of Prov ider Migration on 06/27/2025 at 06:22 PM EST Sign off status: Pending * Provider: Km to Migration Date: 0 01/06/2025 Generated for Xenia valdez/Fabio/eTransmitting on: 1 06:22 PM EST
--- OUTSIDE RECORDS SUMMARY | 2025-02-26 03:00 | XMS_ITS ---
Author Organization [facility] are Address [address] [place] [address] Care Team Providers Care Assembler Camper Name Role Phone MRS. Sunni Ramon Primary Care Provider [phone] Benedicto Talley MD Unavailable Unavailable Migration, Provider Unavailable Unavailable REASON FOR VISIT EMR-Héctor Encounters Encounter Location Date Provider Diagnosis [facility] [address] [place] [address] 02/26/2025 Provider Migration Plan Of Treatment Medication Medication Name Sig Start Date Stop Date Notes promethazine 6.25mg/5 mL promethazine 6. 25mg/5 mL, 4 Milliliter every 6 hours as needed for nausea # 360, 07/24/2022, No Refill. Inactive oral every 6 hours as needed for nausea; Duration: 5 07/24/2022 3 *Reorder from [facility] for eRx and Interaction Alerts* Pravastatin 20mg pravastatin 20mg, 1 Tablet daily # 30, 09/12/2023, No Refill. Inactive oral daily; Duration: 30 09/12/2023 4 *Reorder from [facility] for eRx and Interaction Alerts* tamsulosin 0.4mg tamsulosin 0.4mg, 1 (one) Capsule daily # 7, 04/03/2022, No Refill. Inactive oral daily; Duration: 7 04/03/2022 3 *Reorder from [facility] for eRx and Interaction Alerts* Ozempic 0.25 mg or 0.5mg (2 mg/3 Ozempic 0.25 mg or 0.5mg (2 mg/3, 0.5 mg weekly # 3, 12/11/2023, No Refill. Inactive subcutaneous weekly; Duration: 28 12/11/2023 4 *Reorder from [facility] for eRx and Interaction Alerts* Ozempic 1 mg/dose(4 mg/3 mL Ozempic 1 mg/dose(4 mg/3 mL, 1 (one) mL weekly # 4, 05/07/2024, No Refill. Inactive subcutaneous weekly; Duration: 30 05/07/2024 5 *Reorder from [facility] for eRx and Interaction Alerts* cyclobenzaprine 5mg cyclobenzaprine 5mg, 1 (one) Tablet three times daily # 15, 04/03/2022, No Refill. Inactive oral three times daily; Duration: 5 04/03/2022 3 *Reorder from [facility] for eRx and Interaction Alerts* cholecalciferol (vitamin D3) 1,250 mcg(50,000 un cholecalciferol (vitamin D3) 1,250 mcg(50,000 un, 1 Capsule every week # 12, 03/11/2024, No Refill. Inactive oral every week; Duration: 84 03/11/2024 4 *Reorder from [facility] for eRx and Interaction Alerts* Lantus Solostar U-100 Insulin 100 unit/mL(3 mL) Lantus Solostar U-100 Insulin 100 unit/mL(3 mL), 20 units at bedtime # 10, 05/07/2024, Ref. x5. Inactive subcutaneous at bedtime; Duration: 30 05/07/2024 5 *Reorder from [facility] for eRx and Interaction Alerts* HumaLOG KwikPen Insulin 100unit/mL HumaLOG KwikPen Insulin 100unit/mL, 5 units subcutaneous three times a day with breakfast, lunch, and dinner # 5, 03/10/2024, Ref. x5. Inactive subcutaneous subcutaneous three times a day with breakfast, lunch, and dinner; Duration: 30 03/10/2024 4 *Reorder from [facility] for eRx and Interaction Alerts* Ozempic 2 mg/dose(8 mg/3 mL Ozempic 2 mg/dose(8 mg/3 mL, 2 (two) milligram SQ once weekly # 9, 03/14/2023, No Refill. Inactive subcutaneous SQ once weekly; Duration: 03/14/2023 3 *Reorder from [facility] for eRx and Interaction Alerts* FreeStyle Philip 2 English - Device FreeStyle Philip 2 English , 1 (one) Device as directed # [...] 2 sensors per 28 days Dexcom G5 Janitorial Assistant Kit Dexcom G5 Receive r Kit , 1 (one) Device as directed # 1, 11/10/2020, Ref. x11. Inactive as directed; Duration: 14 11/10/2020 1 DX: UNCONTROLLED INSULLIN DEPENDENT DIABETES Guardian Sensor (3) Guardian Sensor (3) , as directed # 90, 11/08/2020, Ref. x3. Inactive as directed; Duration: 11/08/2020 1 1YR SUPPLY Soliqua 100-33 UNT-MCG/ML Solution Pen-injector Soliqua [id number]/ML, 10 units at bedtime daily for type [...] once weekly; Duration: 30 08/30/2020 *Reorder from [facility] for eRx and Interaction Alerts* Lyndsey Allergy 180MG Lyndsey Allergy 18 0MG, 1 (one) Tablet daily # 30, 10/28/2018, Ref. x6. Inactive Oral daily; Duration: 30 10/28/2018 9 *Pick strength-form from [facility] for eRX* metFORMIN HCl ER 500 MG [...] daily; Duration: 0 12/08/2020 *Pick strength-form from [facility] for eRX* Dulera 100-5 MCG/ACT Aerosol Dulera 100-5mcg/actuat, 2 puffs 2 times per day # 13, 12/23/2023, Ref. x5. Inactive Inhalation 2 times per day; Duration: 30 12/23/2023 4 B-6 100MG B-6( 100MG Oral 1 da geoff ) Inactive -Hx Entry Oral daily; Duration: 0 12/24/2020 *Pick strength-form from [facility] for eRX* ZyrTEC-D Allergy & Congestion 5-120MG ZyrTEC-D Allergy & Congestion 5-120MG, 1 (one) Tablet daily # 20, 08/11/2018, No Refill. Inactive Oral daily; Duration: 20 08/11/2018 9 *Pick strength-form from [facility] for eRX* Zoloft 50MG Zoloft 50MG, 1 (one) Tablet daily # 90, 07/10/2019, Ref. x3. Inactive Oral daily; Duration: 90 07/10/2019 0 *Pick strength-form from [facility] for eRX* Ventolin HFA 108 (90 Base) [...] Oral daily; Duration: 0 07/06/2019 *Reorder from [facility] for eRx and Interaction Alerts* Voltaren 1% Voltaren 1%, 2 (two) gram Apply to the affected joint(s) twice daily as needed for pain # 100, 08/11/2020, No Refill. Inactive External Apply to the affected joint(s) twice daily as needed for pain; Duration: 10 08/11/2020 1 *Pick strength-form from [facility] for eRX* Sucralfate 1 GM/10ML Suspension Sucralfate [...] wheezing; Duration: 30 11/21/2020 1 *Reorder from [facility] for eRx and Interaction Alerts* Phenazopyridine HCl 200MG Phenazopyridin e HCl 200MG, 1 (one) Tablet three times daily as needed for urinary symptoms # 21, 01/04/2019, Ref. x2. Inactive Oral three times daily as needed for urinary symptoms; Duration: 7 01/04/2019 9 *Pick strength-form from [facility] for eRX* Phentermine HCl 37.5 MG Capsule [...] Duration: 30 06/13/2021 2 *Pick strength-form from [facility] for eRX* medroxyPROGESTERone Acetate 10 MG Tablet [...] daily; Duration: 0 07/05/2019 *Pick strength-form from [facility] for eRX* Lisinopril 10 MG Tablet lisinopriL [...] eating; Duration: 3 07/02/2018 9 *Reorder from [facility] for eRx and Interaction Alerts* Furosemide 20 MG Tablet furosemide 20mg, 1 (one) Tablet once daily # 30, 06/07/2022, Ref. x5. Inactive Oral once daily; Duration: 30 06/07/2022 4 Folic Acid 400MCG Folic Acid( 400MCG O ral 1 tablet daily ) Inactive -Hx Entry Oral daily; Duration: 0 12/08/2020 *Pick strength-form from [facility] for eRX* Gabapentin 300mg gabapentin( 300mg or al 1 three times daily ) Inactive -Hx Entry oral three times daily; Duration: 0 10/02/2024 5 *Pick strength-form from [facility] for eRX* glipiZIDE 5 MG Tablet GlipiZIDE [...] Duration: 10 07/15/2017 8 *Pick strength-form from [facility] for eRX* Doxycycline Hyclate 100 MG [...] Duration: 7 06/21/2021 2 *Pick strength-form from [facility] for eRX* Bromfed DM 2-30-10 MG/5ML Syrup [...] Oral three times daily; Duration: 30 05/21/2019 Wdcbirjose-VSLN-Myzdsogy 50-325-40 MG Capsule Yqjclvuzqe-OCIC-Fessecya 50-325-40MG, 1 (one) Capsule every 4-6 hours [...] dizziness; Duration: 0 09/06/2024 5 *Reorder from [facility] for eRx and Interaction Alerts* Bactrim DS 800-160MG Bactrim DS 800-160M G, 1 (one) Tablet two times daily # 10, 05/14/2021, No Refill. Inactive Oral two times daily; Duration: 5 05/14/2021 *Pick strength-form from [facility] for eRX* Progress Notes * Georgia SWANSONDOB:[birth year] (50 yo F)Acc No.[id number]:02/26/2025 Patient: Georgia CHRISTIE Susana :1975 A ge:49 Y S ex:Female Address:[address] [place] [address], [address] * Refills Stop Meclizine, 12.5mg, oral, 30, [...] needed for congestion and cough, 10 Stop Idzvhbvxfx-HQNJ-Hakpwxvo Capsule, 50-325-40 MG, Oral, 15, Ywgintlxrw-VWMJ-Hbxjljqf 50-325-40MG, 1 (one) Capsule every 4-6 hours [...] Solution Pen-injector, 100-33 UNT-MCG/ML, Subcutaneous, 1, Soliqua [id number]/ML, 10 units at bedtime daily for type [...] Inactive, as directed, 90 Stop Dexcom G5 Janitorial Assistant Kit, 1, Dexcom G5 Janitorial Assistant Kit , 1 (one) Device as directed # 1, 11/10/2020, Ref. x11. Inactive, as directed, 14 Stop FreeStyle Philip 2 English Device, - , 1, FreeStyle Philip 2 English , 1 (one) Device as directed # [...]
--- OUTSIDE RECORDS SUMMARY | 2025-02-27 03:00 | XMS_ITS ---
Author Organization [facility] [employer] [employer] are Address [address] [place] [address] Care Team Providers Care Associate Professor Of Theology Name Role Phone MRS. Sunni Ramon Primary [...] every 12 weeks; Duration: 0 *Reorder from [facility] for eRx and Interaction Alerts* 11/04/2024 Active FreeStyle Philip 3 Sensor - Miscellaneous FreeStyle Philip 3 Sensor( miscellaneous every 14 days ) Active -Hx Entry miscellaneous every 14 days; Duration: 0 11/04/2024 Active Folic Acid Xtra Folic Acid Xtra( Ora l 1 (one) daily ) Active -Hx Entry Oral daily; Duration: 30 *Reorder from [facility] for eRx and Interaction Alerts* 04/27/2021 Active [...] other day; Duration: 30 *Pick strength-form from [facility] for eRX* 11/09/2019 Active PROzac 20 MG [...] prn wheezing; Duration: 30 *[facility] from [facility] for eRX* 01/22/2024 Active ALPRAZolam 0.5 MG Tablet ALPRAZolam 0.5mg, 1 (one) tablet two times daily, as needed FOR PANIC ATTACHS # 20, 10/12/2024, No Refill. Active Oral two times daily, as needed FOR PANIC ATTACHS; Duration: 10 DX: PANIC ATTACkS [place] Controlled Substance Reporting Database reviewed and patient found to be in compliance with prescription. 10/12/2024 Active Nurtec ODT 75mg Nurtec ODT 75mg, 1 (one) Tablet daily at onset of migraine headache # 8, 01/09/2024, Ref. x2. Active oral daily at onset of migraine headache; Duration: 30 *Reorder from [facility] for eRx and Interaction Alerts* 01/09/2024 Active cyclobenzaprine 5mg cyclobenzaprine 5mg, 1 tablet Tablet at bedtime as needed for neck tension # 90, 11/04/2024, Ref. x1. Active oral at bedtime as needed for neck tension; Duration: 90 *Reorder from [facility] for eRx and Interaction Alerts* 11/04/2024 Active Ozempic 2 mg/dose(8 mg/3 mL Ozempic( 2 mg/dose(8 mg/3 mL subcutaneous 2 mg one weekly ) Active -Hx Entry subcutaneous one weekly; Duration: 0 *Reorder from [facility] for eRx and Interaction Alerts* 11/04/2024 Active cholecalciferol (vitamin D3) 50 mcg(2,000 uni cholecalciferol (vitamin D3) 50 mcg(2,000 uni, 1 (one) Tablet daily # 30, 11/20/2022, No Refill. Active oral daily; Duration: 30 *Reorder from [facility] for eRx and Interaction Alerts* 11/20/2022 Active atorvastatin 40mg atorvastatin 40mg, 1 (one) Tablet at bedtime for high cholesterol # 90, 09/13/2024, Ref. x1. Active oral at bedtime for high cholesterol; Duration: 90 *Reorder from [facility] for eRx and Interaction Alerts* 09/13/2024 Active [...] Encounter Location Date Provider Diagnosis [facility] [address] [place] [address] 02/27/2025 Provider Migration Plan Of Treatment No Information Progress Notes * [place] ARAGONDOB:[birth year] (50 yo F)Acc No.[id number]:02/27/2025 Patient: [place] CHRISTIE :1975 A ge:49 Y S ex:Female Address:[address] [place] [id number] Subjective: * Chief Complaints: * E MR-Héctor [...] , Notes to Pharmacist: *Pick strength-form from [facility] for eRX*ALPRAZolam 0.5 MG Tablet ALPRAZolam 0.5mg, 1 (one) tablet two times daily, as needed FOR PANIC ATTACHS # 20, 10/12/2024, No Refill. Active Oral two times daily, as needed FOR PANIC ATTACHS , Notes to Pharmacist: DX: PANIC ATTACkS [place] Controlled Substance Reporting Database reviewed and patient found to be in compliance with prescription.Ferrous Sulfate 325 (65 Fe)MG Ferrous Sulfate 325 (65 Fe)MG, 1 tablet Tablet daily or every other day # 30, 11/09/2019, Ref. x2. Active Oral daily or every other day , Notes to Pharmacist: *Pick strength-form from [facility] for eRX*Ondansetron 4 MG Tablet Disintegrating ondansetron [...] daily , Notes to Pharmacist: *Reorder from [facility] for eRx and Interaction Alerts*Farxiga 10 MG [...] weeks , Notes to Pharmacist: *Reorder from [facility] for eRx and Interaction Alerts*atorvastatin 40mg atorvastatin 40mg, 1 (one) Tablet at bedtime for high cholesterol # 90, 09/13/2024, Ref. x1. Active oral at bedtime for high cholesterol , Notes to Pharmacist: *Reorder from [facility] for eRx and Interaction Alerts*cholecalciferol (vitamin D3) 50 mcg(2,000 uni cholecalciferol (vitamin D3) 50 mcg(2,000 uni, 1 (one) Tablet daily # 30, 11/20/2022, No Refill. Active oral daily , Notes to Pharmacist: *Reorder from [facility] for eRx and Interaction Alerts*cyclobenzaprine 5mg cyclobenzaprine 5mg, 1 tablet Tablet at bedtime as needed for neck tension # 90, 11/04/2024, Ref. x1. Active oral at bedtime as needed for neck tension , Notes to Pharmacist: *Reorder from [facility] for eRx and Interaction Alerts*Nurtec ODT 75mg Nurtec ODT 75mg, 1 (one) Tablet daily at onset of migraine headache # 8, 01/09/2024, Ref. x2. Active oral daily at onset of migraine headache , Notes to Pharmacist: *Reorder from [facility] for eRx and Interaction Alerts*Ozempic 2 mg/dose(8 mg/3 mL Ozempic( 2 mg/dose(8 mg/3 mL subcutaneous 2 mg one weekly ) Active -Hx Entry subcutaneous one weekly , Notes to Pharmacist: *Reorder from [facility] for eRx and Interaction Alerts*Taking Albuterol Sulfate 90mcg/actuat albuterol sulfate 90mcg/actuat, 2 Puff q 4 hours prn wheezing # 1, 01/22/2024, Ref. x2. Active inhalation q 4 hours prn wheezing , Notes to Pharmacist: *Pick strength-form from [facility] for eRX*Taking ALPRAZolam 0.5 MG Tablet ALPRAZolam 0.5mg, 1 (one) tablet two times daily, as needed FOR PANIC ATTACHS # 20, 10/12/2024, No Refill. Active Oral two times daily, as needed FOR PANIC ATTACHS , Notes to Pharmacist: DX: PANIC ATTACkS [place] Controlled Substance Reporting Database reviewed and patient found to be in compliance with prescription.Taking Ferrous Sulfate 325 (65 Fe)MG Ferrous Sulfate 325 (65 Fe)MG, 1 tablet Tablet daily or every other day # 30, 11/09/2019, Ref. x2. Active Oral daily or every other day , Notes to Pharmacist: *Pick strength-form from [facility] for eRX*Taking Ondansetron 4 MG Tablet Disintegrating [...] daily , Notes to Pharmacist: *Reorder from [facility] for eRx and Interaction Alerts*Taking Farxiga 10 [...] weeks , Notes to Pharmacist: *Reorder from [facility] for eRx and Interaction Alerts*Taking atorvastatin 40mg atorvastatin 40mg, 1 (one) Tablet at bedtime for high cholesterol # 90, 09/13/2024, Ref. x1. Active oral at bedtime for high cholesterol , Notes to Pharmacist: *Reorder from [facility] for eRx and Interaction Alerts*Taking cholecalciferol (vitamin D3) 50 mcg(2,000 uni cholecalciferol (vitamin D3) 50 mcg(2,000 uni, 1 (one) Tablet daily # 30, 11/20/2022, No Refill. Active oral daily , Notes to Pharmacist: *Reorder from [facility] for eRx and Interaction Alerts*Taking cyclobenzaprine 5mg cyclobenzaprine 5mg, 1 tablet Tablet at bedtime as needed for neck tension # 90, 11/04/2024, Ref. x1. Active oral at bedtime as needed for neck tension , Notes to Pharmacist: *Reorder from [facility] for eRx and Interaction Alerts*Taking Nurtec ODT 75mg Nurtec ODT 75mg, 1 (one) Tablet daily at onset of migraine headache # 8, 01/09/2024, Ref. x2. Active oral daily at onset of migraine headache , Notes to Pharmacist: *Reorder from [facility] for eRx and Interaction Alerts*Taking Ozempic 2 mg/dose(8 mg/3 mL Ozempic( 2 mg/dose(8 mg/3 mL subcutaneous 2 mg one weekly ) Active -Hx Entry subcutaneous one weekly , Notes to Pharmacist: *Reorder from [facility] for eRx and Interaction Alerts* * Allergies: A llergies Reconciled: AllergyAzithromycin *CHEMICALS*: AllergyBanana (Diagnostic): AllergyBlueberry Flavor *PHARMACEUTICAL ADJUVANTS*: AllergyErythromycin: AllergyIodine *ANTISEPTICS & DISINFECTANTS*: AllergyLactase *DIETARY PRODUCTS/DIETARY MANAGEMENT PRODU: AllergyMontelukast Sodium *ANTIASTHMATIC AND BRONCHODILAT: AllergyPenicillins: AllergyRaspberry Flavor *PHARMACEUTICAL ADJUVANTS*: AllergyShellfish-derived Products: Allergy * * Date:
--- OUTSIDE RECORDS SUMMARY | 2025-03-05 03:00 | XMS_ITS ---
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 Name Role Phone Benedicto Talley MD Unavailable Unavailable Migration, Provider Unavailable Unavailable REASON FOR VISIT EMR-Héctor Encounters Encounter Location Date Provider Diagnosis [facility] [address] [place] [address] 03/05/2025 Provider Migration Plan Of Treatment Medication [...] cough; Duration: 10 07/17/2020 1 *Reorder from [facility] for eRx and Interaction Alerts* Carafate 1 GM Tablet Carafate( 1GM Oral 1 (one) Tablet three times daily ) Inactive -Hx Entry Oral three times daily; Duration: 30 05/21/2019 Eiccncuocd-XSUN-Nbzcafkt 50-325-40 MG Capsule Zayqyirlgk-SDUN-Avqnohkm 50-325-40MG, 1 (one) Capsule every 4-6 hours [...] Duration: 7 06/21/2021 2 *Pick strength-form from [facility] for eRX* promethazine 6.25mg/5 mL promethazine 6. 25mg/5 mL, 4 Milliliter every 6 hours as needed for nausea # 360, 07/24/2022, No Refill. Inactive oral every 6 hours as needed for nausea; Duration: 5 07/24/2022 3 *Reorder from [facility] for eRx and Interaction Alerts* tamsulosin 0.4mg tamsulosin 0.4mg, 1 (one) Capsule daily # 7, 04/03/2022, No Refill. Inactive oral daily; Duration: 7 04/03/2022 3 *Reorder from [facility] for eRx and Interaction Alerts* Acetaminophen-Codeine 300-30 [...] dizziness; Duration: 0 09/06/2024 5 [facility]* Bactrim DS 800-160MG Bactrim DS 800-160M G, 1 (one) Tablet two times daily # 10, 05/14/2021, No Refill. Inactive Oral two times daily; Duration: 5 05/14/2021 *Pick strength-form from [facility] for eRX* Ozempic 2 mg/dose(8 mg/3 mL Ozempic 2 mg/dose(8 mg/3 mL, 2 (two) milligram SQ once weekly # 9, 03/14/2023, No Refill. Inactive subcutaneous SQ once weekly; Duration: 90 03/14/2023 3 *Reorder from [facility] for eRx and Interaction Alerts* Lantus Solostar U-100 Insulin 100 unit/mL(3 mL) Lantus Solostar U-100 Insulin 100 unit/mL(3 mL), 20 units at bedtime # 10, 05/07/2024, Ref. x5. Inactive subcutaneous at bedtime; Duration: 30 05/07/2024 5 *Reorder from [facility] for eRx and Interaction Alerts* Ozempic 1 mg/dose(4 mg/3 mL Ozempic 1 mg/dose(4 mg/3 mL, 1 (one) mL weekly # 4, 05/07/2024, No Refill. Inactive subcutaneous weekly; Duration: 30 05/07/2024 5 *Reorder from [facility] for eRx and Interaction Alerts* Ozempic 0.25 mg or 0.5mg (2 mg/3 Ozempic 0.25 mg or 0.5mg (2 mg/3, 0.5 mg weekly # 3, 12/11/2023, No Refill. Inactive subcutaneous weekly; Duration: 28 12/11/2023 4 *Reorder from [facility] for eRx and Interaction Alerts* pravastatin 20mg pravastatin 20mg, 1 Tablet daily # 30, 09/12/2023, No Refill. Inactive oral daily; Duration: 30 09/12/2023 4 *Reorder from [facility] for eRx and Interaction Alerts* HumaLOG KwikPen Insulin 100unit/mL HumaLOG KwikPen Insulin 100unit/mL, 5 units subcutaneous three times a day with breakfast, lunch, and dinner # 5, 03/10/2024, Ref. x5. Inactive subcutaneous subcutaneous three times a day with breakfast, lunch, and dinner; Duration: 30 03/10/2024 4 *Reorder from [facility] for eRx and Interaction Alerts* cyclobenzaprine 5mg cyclobenzaprine 5mg, 1 (one) Tablet three times daily # 15, 04/03/2022, No Refill. Inactive oral three times daily; Duration: 5 04/03/2022 3 *Reorder from [facility] for eRx and Interaction Alerts* FreeStyle Philip [...] week; Duration: 84 03/11/2024 4 *Reorder from [facility] for eRx and Interaction Alerts* Ozempic (2 [...] 04/11/2021 1 Src Refills: 100 Dexcom G5 Inside Sales Associate Kit Dexcom G5 Receive r Kit , 1 (one) Device as directed # 1, 11/10/2020, Ref. x11. Inactive as directed; Duration: 14 11/10/2020 1 DX: UNCONTROLLED INSULLIN DEPENDENT DIABETES FreeStyle Philip 2 [place] - Device FreeStyle Philip 2 [place] , 1 (one) Device as directed # [...] instead Soliqua 100-33 UNT-MCG/ML Solution Pen-injector Soliqua [id number]-EUN/ML, 10 units at bedtime daily for type [...] once weekly; Duration: 30 08/30/2020 *Reorder from [facility] for eRx and Interaction Alerts* Breo Ellipta [...] Duration: 30 10/28/2018 9 *Pick strength-form from [facility] for eRX* BD Pen Needle Hazel U/F [...] daily; Duration: 0 12/24/2020 *Pick strength-form from [facility] for eRX* Voltaren 1% Voltaren 1%, 2 (two) gram Apply to the affected joint(s) twice daily as needed for pain # 100, 08/11/2020, No Refill. Inactive External Apply to the affected joint(s) twice daily as needed for pain; Duration: 10 08/11/2020 1 *Pick strength-form from [facility] for eRX* Zoloft 50MG Zoloft 50MG, 1 (one) Tablet daily # 90, 07/10/2019, Ref. x3. Inactive Oral daily; Duration: 90 07/10/2019 0 *Pick strength-form from [facility] for eRX* Zofran 4MG Zofran( 4MG Oral 1 d aily ) Inactive -Hx Entry Oral daily; Duration: 0 07/06/2019 *Reorder from [facility] for eRx and Interaction Alerts* ZyrTEC-D Allergy & Congestion 5-120MG ZyrTEC-D Allergy & Congestion 5-120MG, 1 (one) Tablet daily # 20, 08/11/2018, No Refill. Inactive Oral daily; Duration: 20 08/11/2018 9 *Pick strength-form from [facility] for eRX* Vitamin B 12 500MCG Vitamin B 12( 500MCG Oral 1 tablet daily ) Inactive -Hx Entry Oral daily; Duration: 0 12/08/2020 *Pick strength-form from [facility] for eRX* traMADol HCl 50 MG Tablet [...] wheezing; Duration: 30 11/21/2020 1 *Reorder from [facility] for eRx and Interaction Alerts* Phentermine HCl [...] Duration: 7 01/04/2019 9 *Pick strength-form from [facility] for eRX* Phentermine HCl 37.5 MG Capsule [...] eating; Duration: 3 07/02/2018 9 *Reorder from [facility] for eRx and Interaction Alerts* Fluconazole 150 [...] stones; Duration: 30 02/10/2020 0 *Reorder from [facility] for eRx and Interaction Alerts* Furosemide 20mg furosemide 20mg, 1 ( one) Tablet once daily # 30, 06/07/2022, Ref. x5. Inactive oral once daily; Duration: 30 06/07/2022 4 *Pick strength-form from [facility] for eRX* Folic Acid 400MCG Folic Acid( 400MCG O ral 1 tablet daily ) Inactive -Hx Entry Oral daily; Duration: 0 12/08/2020 *Pick strength-form from [facility] for eRX* Gabapentin 300mg gabapentin( 300mg or [...] Duration: 7 11/21/2020 1 *Pick strength-form from [facility] for eRX* Progress Notes * [place] ARAGON SusanaDOB:[birth year] (50 yo F)Acc No.[id number]:03/05/2025 Patient: [place] CHRISTIE :1975 A ge:49 Y S ex:Female Address:[address] [place] [address] * Refills Stop Meclizine, 12.5mg, oral, 30, [...] needed for congestion and cough, 10 Stop Hcfuotukdm-UVDH-Dawkbjzl Capsule, 50-325-40 MG, Oral, 15, Ryrohiaytj-ZRPV-Hvqeozsh 50-325-40MG, 1 (one) Capsule every 4-6 hours [...] Solution Pen-injector, 100-33 UNT-MCG/ML, Subcutaneous, 1, Soliqua [id number]/ML, 10 units at bedtime daily for type [...] Inactive, as directed, 90 Stop Dexcom G5 Inside Sales Associate Kit, 1, Dexcom G5 Inside Sales Associate Kit , 1 (one) Device as directed # 1, 11/10/2020, Ref. x11. Inactive, as directed, 14 Stop FreeStyle Philip 2 [place] Device, - , 1, FreeStyle Philip 2 [place] , 1 (one) Device as directed # [...]
--- OUTSIDE RECORDS SUMMARY | 2025-03-06 03:00 | XMS_ITS ---
Author Organization [facility] Address [address] [place] [address] Care Team Providers Care Informatics Physician Name Role Phone Benedicto Talley MD Unavailable Unavailable Migration, Provider Unavailable Unavailable Allergies Allergen (clinical drug ingredient) Drug/Non Drug Allergy documented on EMR Reaction Allergy Type Onset Date Status Allergies Reconciled (uncoded) Unknown Allergy Active azithromycin Azithromycin *CHEMICALS* (uncoded) Unknown Allergy Active banana allergenic extract Banana (Diagnostic) *DIAGNOSTIC PRODUCTS* (uncoded) Unknown Allergy Active Blueberry Flavor *PHARMACEUTICAL ADJUVANTS* (uncoded) Unknown Allergy Active erythromycin Erythromycins (uncoded) Unknown Allergy Active Iodine *ANTISEPTICS & DISINFECTANTS* (uncoded) Unknown Allergy Active Lactase *DIETARY PRODUCTS/DIETARY MANAGEMENT PRODU (uncoded) Unknown Allergy Active montelukast Montelukast Sodium *ANTIASTHMATIC AND BRONCHODILAT (uncoded) Unknown Allergy Active Raspberry Flavor *PHARMACEUTICAL ADJUVANTS* (uncoded) Unknown Allergy Active Shellfish (FN) Shellfish (uncoded) Unknown Allergy Active Substance with penicillin structure and antibacterial mechanism of action (substance) Penicillins Unknown Drug Allergy Active REASON FOR VISIT EMR-Héctor Medications Medication SIG (Take, Route, Frequency, Duration) Notes Start Date End Date Status Vitamin B-12 1000 MCG Tablet Vitamin B-12 1000MCG, 1 (one) Tablet daily # 30, 04/27/2021, No Refill. Active Oral daily; Duration: 30 04/27/2021 Active PROzac 20 MG Capsule PROzac 20mg, 1 Capsule daily # 90, 12/04/2024, No Refill. Active Oral daily; Duration: 90 12/04/2024 Active BreatheRite Valved MDI Chamber - Device BreatheRite Valved MDI Chamber , 1 (one) device use with albuterol inhaler as needed # 1, 05/14/2024, No Refill. Active miscellaneous use with albuterol inhaler as needed; Duration: 0 05/14/2024 Active Vitamin B-6 25 MG Tablet Vitamin B-6 25MG, 1 (one) Tablet daily # 30, 04/27/2021, No Refill. Active Oral daily; Duration: 30 04/27/2021 Active Folic Acid Xtra Folic Acid Xtra( Ora l 1 (one) daily ) Active -Hx Entry Oral daily; Duration: 30 *Reorder from [employer] for eRx and Interaction Alerts* 04/27/2021 Active ALPRAZolam 0.5 MG Tablet ALPRAZolam 0.5mg, 1 (one) tablet two times daily, as needed FOR PANIC ATTACHS # 20, 10/12/2024, No Refill. Active Oral two times daily, as needed FOR PANIC ATTACHS; Duration: 10 DX: PANIC ATTACkS [place] Controlled Substance Reporting Database reviewed and patient found to be in compliance with prescription. 10/12/2024 Active Albuterol Sulfate 90mcg/actuat albuterol sulfate 90mcg/actuat, 2 Puff q 4 hours prn wheezing # 1, 01/22/2024, Ref. x2. Active inhalation q 4 hours prn wheezing; Duration: 30 *Pick strength-form from [employer] for eRX* 01/22/2024 Active Ondansetron 4 MG Tablet Disintegrating ondansetron 4mg, 1 (one) Tablet as needed for nausea # 30, 02/25/2024, No Refill. Active Oral as needed for nausea; Duration: 30 02/25/2024 Active Ferrous Sulfate 325 (65 Fe)MG Ferrous Sulfate 325 (65 Fe)MG, 1 tablet Tablet daily or every other day # 30, 11/09/2019, Ref. x2. Active Oral daily or every other day; Duration: 30 *Pick strength-form from [employer] for eRX* 11/09/2019 Active Ozempic 2 mg/dose(8 mg/3 mL Ozempic( 2 mg/dose(8 mg/3 mL subcutaneous 2 mg one weekly ) Active -Hx Entry subcutaneous one weekly; Duration: 0 *Reorder from [facility] for eRx and Interaction Alerts* 11/04/2024 Active atorvastatin 40mg atorvastatin 40mg, 1 (one) Tablet at bedtime for high cholesterol # 90, 09/13/2024, Ref. x1. Active oral at bedtime for high cholesterol; Duration: 90 *Reorder from [facility] for eRx and Interaction Alerts* 09/13/2024 Active Ajovy Autoinjector 225mg/1.5 mL Ajovy Autoinjector( 225mg/1.5 mL subcutaneous 1 every 12 weeks ) Active -Hx Entry subcutaneous every 12 weeks; Duration: 0 *Reorder from [facility] for eRx and Interaction Alerts* 11/04/2024 Active cyclobenzaprine 5mg cyclobenzaprine 5mg, 1 tablet Tablet at bedtime as needed for neck tension # 90, 11/04/2024, Ref. x1. Active oral at bedtime as needed for neck tension; Duration: 90 *Reorder from [facility] for eRx and Interaction Alerts* 11/04/2024 Active cholecalciferol (vitamin D3) 50 mcg(2,000 uni cholecalciferol (vitamin D3) 50 mcg(2,000 uni, 1 (one) Tablet daily # 30, 11/20/2022, No Refill. Active oral daily; Duration: 30 *Reorder from [facility] for eRx and Interaction Alerts* 11/20/2022 Active Nurtec ODT 75mg Nurtec ODT 75mg, 1 (one) Tablet daily at onset of migraine headache # 8, 01/09/2024, Ref. x2. Active oral daily at onset of migraine headache; Duration: 30 *Reorder from [facility] for eRx and Interaction Alerts* 01/09/2024 Active FreeStyle Philip 3 Sensor - Miscellaneous FreeStyle Philip 3 Sensor( miscellaneous every 14 days ) Active -Hx Entry miscellaneous every 14 days; Duration: 0 11/04/2024 Active Farxiga 10 MG Tablet Farxiga 10mg, 1 Tablet every morning # 90, 05/07/2024, No Refill. Active Oral every morning; Duration: 90 05/07/2024 Active Social History Social History Additional Details Category Social Info Options Details Migrated Social History Migrated Social History Problem Title : No drug use, Problem Status : Active,, Problem Title : No alcohol use, Problem Status : Active,, Problem Title : Tobacco use, Problem Status : Active, Attribute Title : Never smoker Encounters Encounter Location Date Provider Diagnosis [facility] [address] [place] [address] 03/06/2025 Provider Migration Plan Of Treatment No Information Progress Notes * Georgia SWANSON JDOB:[birth year] (50 yo F)Acc No.[id number]:03/06/2025 Patient: Georgia CHRISTIE :1975 A ge:49 Y S ex:Female Address:[address] [place] [id number] Subjective: * Chief Complaints: * E MR-Héctor [...] Attribute Title : Outpatient, * Family History: M igrated Family History: Problem Title : Heart Disease, Problem Status : Active Attribute Title : Maternal Grandfather. * Social History: M igrated Social History: M igrated Social History: Problem Title : No drug use, Problem Status : Active,, Problem Title : No alcohol use, Problem Status : Active,, Problem Title : Tobacco use, Problem Status : Active, Attribute Title : Never smoker. * Medications: T akingAlbuterol Sulfate 90mcg/actuat albuterol sulfate 90mcg/actuat, 2 Puff q 4 hours prn wheezing # 1, 01/22/2024, Ref. x2. Active inhalation q 4 hours prn wheezing , Notes to Pharmacist: *Pick strength-form from [employer] for eRX*ALPRAZolam 0.5 MG Tablet ALPRAZolam 0.5mg, 1 (one) tablet two times daily, as needed FOR PANIC ATTACHS # 20, 10/12/2024, No Refill. Active Oral two times daily, as needed FOR PANIC ATTACHS , Notes to Pharmacist: DX: PANIC ATTACkS [place] Controlled Substance Reporting Database reviewed and patient found to be in compliance with prescription.Ferrous Sulfate 325 (65 Fe)MG Ferrous Sulfate 325 (65 Fe)MG, 1 tablet Tablet daily or every other day # 30, 11/09/2019, Ref. x2. Active Oral daily or every other day , Notes to Pharmacist: *Pick strength-form from [employer] for eRX*Ondansetron 4 MG Tablet Disintegrating ondansetron [...] daily , Notes to Pharmacist: *Reorder from [employer] for eRx and Interaction Alerts*Farxiga 10 MG [...] weeks , Notes to Pharmacist: *Reorder from [employer] for eRx and Interaction Alerts*atorvastatin 40mg atorvastatin 40mg, 1 (one) Tablet at bedtime for high cholesterol # 90, 09/13/2024, Ref. x1. Active oral at bedtime for high cholesterol , Notes to Pharmacist: *Reorder from [facility] for eRx and Interaction Alerts*cholecalciferol (vitamin D3) 50 mcg(2,000 uni cholecalciferol (vitamin D3) 50 mcg(2,000 uni, 1 (one) Tablet daily # 30, 11/20/2022, No Refill. Active oral daily , Notes to Pharmacist: *Reorder from [facility] for eRx and Interaction Alerts*cyclobenzaprine 5mg cyclobenzaprine 5mg, 1 tablet Tablet at bedtime as needed for neck tension # 90, 11/04/2024, Ref. x1. Active oral at bedtime as needed for neck tension , Notes to Pharmacist: *Reorder from [facility] for eRx and Interaction Alerts*Nurtec ODT 75mg Nurtec ODT 75mg, 1 (one) Tablet daily at onset of migraine headache # 8, 01/09/2024, Ref. x2. Active oral daily at onset of migraine headache , Notes to Pharmacist: *Reorder from [facility] for eRx and Interaction Alerts*Ozempic 2 mg/dose(8 mg/3 mL Ozempic( 2 mg/dose(8 mg/3 mL subcutaneous 2 mg one weekly ) Active -Hx Entry subcutaneous one weekly , Notes to Pharmacist: *Reorder from [facility] for eRx and Interaction Alerts*Taking Albuterol Sulfate 90mcg/actuat albuterol sulfate 90mcg/actuat, 2 Puff q 4 hours prn wheezing # 1, 01/22/2024, Ref. x2. Active inhalation q 4 hours prn wheezing , Notes to Pharmacist: *Pick strength-form from [facility] for eRX*Taking ALPRAZolam 0.5 MG Tablet ALPRAZolam 0.5mg, 1 (one) tablet two times daily, as needed FOR PANIC ATTACHS # 20, 10/12/2024, No Refill. Active Oral two times daily, as needed FOR PANIC ATTACHS , Notes to Pharmacist: DX: PANIC ATTACkS [place] Controlled Substance Reporting Database reviewed and patient found to be in compliance with prescription.Taking Ferrous Sulfate 325 (65 Fe)MG Ferrous Sulfate 325 (65 Fe)MG, 1 tablet Tablet daily or every other day # 30, 11/09/2019, Ref. x2. Active Oral daily or every other day , Notes to Pharmacist: *Pick strength-form from [facility] for eRX*Taking Ondansetron 4 MG Tablet Disintegrating [...] daily , Notes to Pharmacist: *Reorder from [facility] for eRx and Interaction Alerts*Taking Farxiga 10 [...] weeks , Notes to Pharmacist: *Reorder from [facility] for eRx and Interaction Alerts*Taking atorvastatin 40mg atorvastatin 40mg, 1 (one) Tablet at bedtime for high cholesterol # 90, 09/13/2024, Ref. x1. Active oral at bedtime for high cholesterol , Notes to Pharmacist: *Reorder from [facility] for eRx and Interaction Alerts*Taking cholecalciferol (vitamin D3) 50 mcg(2,000 uni cholecalciferol (vitamin D3) 50 mcg(2,000 uni, 1 (one) Tablet daily # 30, 11/20/2022, No Refill. Active oral daily , Notes to Pharmacist: *Reorder from [facility] for eRx and Interaction Alerts*Taking cyclobenzaprine 5mg cyclobenzaprine 5mg, 1 tablet Tablet at bedtime as needed for neck tension # 90, 11/04/2024, Ref. x1. Active oral at bedtime as needed for neck tension , Notes to Pharmacist: *Reorder from [facility] for eRx and Interaction Alerts*Taking Nurtec ODT 75mg Nurtec ODT 75mg, 1 (one) Tablet daily at onset of migraine headache # 8, 01/09/2024, Ref. x2. Active oral daily at onset of migraine headache , Notes to Pharmacist: *Reorder from [facility] for eRx and Interaction Alerts*Taking Ozempic 2 mg/dose(8 mg/3 mL Ozempic( 2 mg/dose(8 mg/3 mL subcutaneous 2 mg one weekly ) Active -Hx Entry subcutaneous one weekly , Notes to Pharmacist: *Reorder from [facility] for eRx and Interaction Alerts* * Allergies: A llergies Reconciled: AllergyAzithromycin *CHEMICALS*: AllergyBanana (Diagnostic) *DIAGNOSTIC PRODUCTS*: AllergyBlueberry Flavor *PHARMACEUTICAL ADJUVANTS*: AllergyErythromycins: AllergyIodine *ANTISEPTICS & DISINFECTANTS*: AllergyLactase *DIETARY PRODUCTS/DIETARY MANAGEMENT PRODU: AllergyMontelukast Sodium *ANTIASTHMATIC AND BRONCHODILAT: AllergyPenicillins: AllergyRaspberry Flavor *PHARMACEUTICAL ADJUVANTS*: AllergyShellfish: Allergy * * Date:
--- OUTSIDE RECORDS SUMMARY | 2025-05-14 03:00 | XMS_ITS ---
Author Organization [facility] are Address [address] [place] [address] Care Team Providers Care Dedicated Driver Name Role Phone MRS. Sunni Ramon Primary Care Provider [phone] Benedicto Talley MD Unavailable Unavailable Migration, Provider Unavailable Unavailable REASON FOR VISIT [facility] [place] [facility] Encounters Encounter Location Date Provider Diagnosis [facility] [address] [place] [address] 05/14/2025 Provider Migration Plan Of Treatment Medication [...] eating; Duration: 3 07/02/2018 9 *Reorder from [employer] for eRx and Interaction Alerts* Lisinopril 5 [...] daily; Duration: 0 12/08/2020 *Pick strength-form from [employer] for eRX* Furosemide 20mg furosemide 20mg, 1 ( one) Tablet once daily # 30, 06/07/2022, Ref. x5. Inactive oral once daily; Duration: 30 06/07/2022 4 *Pick strength-form from [employer] for eRX* Gabapentin 300mg gabapentin( 300mg or al 1 three times daily ) Inactive -Hx Entry oral three times daily; Duration: 0 10/02/2024 5 *Pick strength-form from [employer] for eRX* Depakote 500 MG Tablet Delayed [...] Duration: 7 11/21/2020 1 *Pick strength-form from [employer] for eRX* Flomax 0.4MG Flomax 0.4MG, 1 (one ) Capsule daily as needed for kidney stones # 30, 02/10/2020, Ref. x1. Inactive Oral daily as needed for kidney stones; Duration: 30 02/10/2020 0 *Reorder from [employer] for eRx and Interaction Alerts* Cyclobenzaprine HCl [...] daily; Duration: 5 05/14/2021 *Pick strength-form from [employer] for eRX* Benzonatate 200MG Benzonatate 200MG, 1 (one) Capsule every 8 hours prn cough # 21, 06/21/2021, No Refill. Inactive Oral every 8 hours prn cough; Duration: 7 06/21/2021 2 *Pick strength-form from [employer] for eRX* Bromfed DM 30-2-10MG/5ML Bromfed DM 30-2-10MG/5ML, 10 Milliliter every 8 hours as needed for congestion and cough # 200, 07/17/2020, No Refill. Inactive Oral every 8 hours as needed for congestion and cough; Duration: 10 07/17/2020 1 *Reorder from [employer] for eRx and Interaction Alerts* Ivnmzucyfz-ZKBI-Nhpbfdls 50-325-40 MG Capsule Rnmygwvkbx-AFMY-Abywjkxm 50-325-40MG, 1 (one) Capsule every 4-6 hours [...] weekly; Duration: 30 05/07/2024 5 *Reorder from [employer] for eRx and Interaction Alerts* Pravastatin 20mg pravastatin 20mg, 1 Tablet daily # 30, 09/12/2023, No Refill. Inactive oral daily; Duration: 30 09/12/2023 4 *Reorder from [employer] for eRx and Interaction Alerts* promethazine 6.25mg/5 mL promethazine 6. 25mg/5 mL, 4 Milliliter every 6 hours as needed for nausea # 360, 07/24/2022, No Refill. Inactive oral every 6 hours as needed for nausea; Duration: 5 07/24/2022 3 *Reorder from [employer] for eRx and Interaction Alerts* tamsulosin 0.4mg tamsulosin 0.4mg, 1 (one) Capsule daily # 7, 04/03/2022, No Refill. Inactive oral daily; Duration: 7 04/03/2022 3 *Reorder from [employer] for eRx and Interaction Alerts* Meclizine 12.5mg meclizine 12.5mg, 1 Tablet 2 to 3 times per day as needed for dizziness # 30, 09/06/2024, No Refill. Inactive oral 2 to 3 times per day as needed for dizziness; Duration: 0 09/06/2024 5 *Reorder from [employer] for eRx and Interaction Alerts* HumaLOG KwikPen Insulin 100unit/mL HumaLOG KwikPen Insulin 100unit/mL, 5 units subcutaneous three times a day with breakfast, lunch, and dinner # 5, 03/10/2024, Ref. x5. Inactive subcutaneous subcutaneous three times a day with breakfast, lunch, and dinner; Duration: 30 03/10/2024 4 *Reorder from [facility] for eRx and Interaction Alerts* Lantus Solostar U-100 Insulin 100 unit/mL(3 mL) Lantus Solostar U-100 Insulin 100 unit/mL(3 mL), 20 units at bedtime # 10, 05/07/2024, Ref. x5. Inactive subcutaneous at bedtime; Duration: 30 05/07/2024 5 *Reorder from [facility] for eRx and Interaction Alerts* Ozempic 2 mg/dose(8 mg/3 mL Ozempic 2 mg/dose(8 mg/3 mL, 2 (two) milligram SQ once weekly # 9, 03/14/2023, No Refill. Inactive subcutaneous SQ once weekly; Duration: 90 03/14/2023 3 *Reorder from [facility] for eRx and Interaction Alerts* Ozempic 0.25 mg or 0.5mg (2 mg/3 Ozempic 0.25 mg or 0.5mg (2 mg/3, 0.5 mg weekly # 3, 12/11/2023, No Refill. Inactive subcutaneous weekly; Duration: 28 12/11/2023 4 *Reorder from [facility] for eRx and Interaction Alerts* cyclobenzaprine 5mg cyclobenzaprine 5mg, 1 (one) Tablet three times daily # 15, 04/03/2022, No Refill. Inactive oral three times daily; Duration: 5 04/03/2022 3 *Reorder from [facility] for eRx and Interaction Alerts* Dexcom G5 Dispute Coordinator Kit Dexcom G5 Receive r Kit , 1 (one) Device as directed # 1, 11/10/2020, Ref. x11. Inactive as directed; Duration: 14 11/10/2020 1 DX: UNCONTROLLED INSULLIN DEPENDENT DIABETES FreeStyle Philip 2 [place] - Device FreeStyle Philip 2 [place] , 1 (one) Device as directed # [...] week; Duration: 84 03/11/2024 4 *Reorder from [employer] for eRx and Interaction Alerts* Dexcom G5 [...] for B-Cise was sent instead *Reorder from [employer] for eRx and Interaction Alerts* Trelegy Ellipta 100-62.5-25 MCG/ACT Aerosol Powder Breath Activated Trelegy Ellipta 100-62.5-25mcg, 1 inhalation daily # 28, 03/10/2024, Ref. x1. Inactive Inhalation daily; Duration: 28 03/10/2024 5 BD Pen Needle Micro U/F BD Pen Needle Mi core microarchitect U/F , 1 (one) needle to be [...] 0 Soliqua 100-33 UNT-MCG/ML Solution Pen-injector Soliqua 824-32VMX-YCV/ML, 10 units at bedtime daily for type [...] Duration: 30 10/28/2018 9 *Pick strength-form from [employer] for eRX* Bydureon 2MG Bydureon 2MG, 2 (two ) mg once weekly # 4, 08/30/2020, Ref. x5. Inactive Subcutaneous once weekly; Duration: 30 08/30/2020 *Reorder from [employer] for eRx and Interaction Alerts* metFORMIN HCl [...] needed; Duration: 30 06/14/2019 0 *Reorder from [employer] for eRx and Interaction Alerts* ZyrTEC-D Allergy & Congestion 5-120MG ZyrTEC-D Allergy & Congestion 5-120MG, 1 (one) Tablet daily # 20, 08/11/2018, No Refill. Inactive Oral daily; Duration: 20 08/11/2018 9 *Pick strength-form from [employer] for eRX* Vitamin B 12 500MCG Vitamin B 12( 500MCG Oral 1 tablet daily ) Inactive -Hx Entry Oral daily; Duration: 0 12/08/2020 *Pick strength-form from [employer] for eRX* B-6 100MG B-6( 100MG Oral 1 da geoff ) Inactive -Hx Entry Oral daily; Duration: 0 12/24/2020 *Pick strength-form from [employer] for eRX* Dulera 100-5 MCG/ACT Aerosol Dulera [...] Duration: 10 08/11/2020 1 *Pick strength-form from [employer] for eRX* Zofran 4MG Zofran( 4MG Oral 1 d aily ) Inactive -Hx Entry Oral daily; Duration: 0 07/06/2019 *Reorder from [employer] for eRx and Interaction Alerts* Zoloft 50 [...] Duration: 0 07/22/2018 9 *Pick strength-form from [employer] for eRX* Ventolin HFA 108 (90 Base) [...] wheezing; Duration: 30 11/21/2020 1 *Reorder from [employer] for eRx and Interaction Alerts* Promethazine HCl [...] daily; Duration: 0 07/16/2018 *Pick strength-form from [employer] for eRX* Phentermine HCl 37.5 MG Tablet [...] Notes * SWANSONGeorgiaDOB:[birth year] (50 yo F)Acc No.[id number]:05/14/2025 Patient: [place] CHRISTIE :1975 A ge:49 Y S ex:Female Address:[address] [place] [id number] * Refills Stop Meclizine, 12.5mg, oral, 30, [...] needed for congestion and cough, 10 Stop Oghjwqqyrh-LVAS-Omnswurj Capsule, 50-325-40 MG, Oral, 15, Puahuxpjsi-MZKX-Icicckbv 50-325-40MG, 1 (one) Capsule every 4-6 hours [...] Solution Pen-injector, 100-33 UNT-MCG/ML, Subcutaneous, 1, Soliqua 572-70DGI-DCC/ML, 10 units at bedtime daily for type [...] Inactive, as directed, 90 Stop Dexcom G5 Dispute Coordinator Kit, 1, Dexcom G5 Dispute Coordinator Kit , 1 (one) Device as directed # 1, 11/10/2020, Ref. x11. Inactive, as directed, 14 Stop FreeStyle Philip 2 [place] Device, - , 1, FreeStyle Philip 2 [place] , 1 (one) Device as directed # [...]
--- OUTSIDE RECORDS SUMMARY | 2025-05-15 03:00 | XMS_ITS ---
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 Sunni Ramon [...] tension; Duration: 90 *Reorder from [facility] for eRx and Interaction Alerts* 11/04/2024 Active cholecalciferol (vitamin D3) 50 mcg(2,000 uni cholecalciferol (vitamin D3) 50 mcg(2,000 uni, 1 (one) Tablet daily # 30, 11/20/2022, No Refill. Active oral daily; Duration: 30 *Reorder from [facility] for eRx and Interaction Alerts* 11/20/2022 Active Ozempic 2 mg/dose(8 mg/3 mL Ozempic( 2 mg/dose(8 mg/3 mL subcutaneous 2 mg one weekly ) Active -Hx Entry subcutaneous one weekly; Duration: 0 *Reorder from [facility] for eRx and Interaction Alerts* 11/04/2024 Active Nurtec ODT 75mg Nurtec ODT 75mg, 1 (one) Tablet daily at onset of migraine headache # 8, 01/09/2024, Ref. x2. Active oral daily at onset of migraine headache; Duration: 30 *Reorder from [facility] for eRx and Interaction Alerts* 01/09/2024 Active atorvastatin 40mg atorvastatin 40mg, 1 (one) Tablet at bedtime for high cholesterol # 90, 09/13/2024, Ref. x1. Active oral at bedtime for high cholesterol; Duration: 90 *Reorder from [facility] for eRx and Interaction [...] daily; Duration: 30 *Reorder from [facility] for eRx and Interaction Alerts* 04/27/2021 Active FreeStyle Philip 3 Sensor - Miscellaneous FreeStyle Philip 3 Sensor( miscellaneous every 14 days ) Active -Hx Entry miscellaneous every 14 days; Duration: 0 11/04/2024 Active Ajovy Autoinjector 225mg/1.5 mL Ajovy Autoinjector( 225mg/1.5 mL subcutaneous 1 every 12 weeks ) Active -Hx Entry subcutaneous every 12 weeks; Duration: 0 *Reorder from [facility] for eRx and Interaction [...] other day; Duration: 30 *Pick strength-form from [employer] for eRX* 11/09/2019 Active Vitamin B-12 1000 MCG Tablet Vitamin B-12 1000MCG, 1 (one) Tablet daily # 30, 04/27/2021, No Refill. Active Oral daily; Duration: 30 04/27/2021 Active PROzac 20mg PROzac 20mg, 1 Capsule daily # 90, 12/04/2024, No Refill. Active oral daily; Duration: 90 *Reorder from [facility] for eRx and Interaction Alerts* 12/04/2024 Active Vitamin B-6 25 MG Tablet Vitamin B-6 25MG, 1 (one) Tablet daily # 30, 04/27/2021, No Refill. Active Oral daily; Duration: 30 04/27/2021 Active Albuterol Sulfate 90mcg/actuat albuterol sulfate 90mcg/actuat, 2 Puff q 4 hours prn wheezing # 1, 01/22/2024, Ref. x2. Active inhalation q 4 hours prn wheezing; Duration: 30 *Pick strength-form from [employer] for eRX* 01/22/2024 Active ALPRAZolam 0.5 MG Tablet ALPRAZolam 0.5mg, 1 (one) tablet two times daily, as needed FOR PANIC ATTACHS # 20, 10/12/2024, No Refill. Active Oral two times daily, as needed FOR PANIC ATTACHS; Duration: 10 DX: PANIC ATTACkS [place] Controlled Substance Reporting Database reviewed and patient [...] smoker Encounters Encounter Location Date Provider Diagnosis [facility] [address] [facility] [place] [address] 05/15/2025 Provider Migration Plan Of Treatment No Information Progress Notes * [place] ARAGONDOB:[birth year] (50 yo F)Acc No.[id number]:05/15/2025 Patient: [place] CHRISTIE :1975 A ge:49 Y S ex:Female Address:[address] [place] [address] Subjective: * Chief Complaints: * E MR-Héctor [...] , Notes to Pharmacist: *Pick strength-form from [employer] for eRX*ALPRAZolam 0.5 MG Tablet ALPRAZolam 0.5mg, 1 (one) tablet two times daily, as needed FOR PANIC ATTACHS # 20, 10/12/2024, No Refill. Active Oral two times daily, as needed FOR PANIC ATTACHS , Notes to Pharmacist: DX: PANIC ATTACkS [place] Controlled Substance Reporting Database reviewed and patient found to be in compliance with prescription.Ferrous Sulfate 325 (65 Fe)MG Ferrous Sulfate 325 (65 Fe)MG, 1 tablet Tablet daily or every other day # 30, 11/09/2019, Ref. x2. Active Oral daily or every other day , Notes to Pharmacist: *Pick strength-form from [employer] for eRX*Ondansetron 4 MG Tablet Disintegrating ondansetron 4mg, 1 (one) Tablet as needed for nausea # 30, 02/25/2024, No Refill. Active Oral as needed for nausea PROzac 20mg PROzac 20mg, 1 Capsule daily # 90, 12/04/2024, No Refill. Active oral daily , Notes to Pharmacist: *Reorder from [employer] for eRx and Interaction Alerts*Vitamin B-12 1000 [...] daily , Notes to Pharmacist: *Reorder from [employer] for eRx and Interaction Alerts*Farxiga 10 MG [...] Notes to Pharmacist: *Reorder from [facility] for eRx and Interaction Alerts*atorvastatin 40mg atorvastatin 40mg, 1 (one) Tablet at bedtime for high cholesterol # 90, 09/13/2024, Ref. x1. Active oral at bedtime for high cholesterol , Notes to Pharmacist: *Reorder from [facility] for eRx and Interaction Alerts*cholecalciferol (vitamin D3) 50 mcg(2,000 uni cholecalciferol (vitamin D3) 50 mcg(2,000 uni, 1 (one) Tablet daily # 30, 11/20/2022, No Refill. Active oral daily , Notes to Pharmacist: *Reorder from [facility] for eRx and Interaction Alerts*cyclobenzaprine 5mg cyclobenzaprine 5mg, 1 tablet Tablet at bedtime as needed for neck tension # 90, 11/04/2024, Ref. x1. Active oral at bedtime as needed for neck tension , Notes to Pharmacist: *Reorder from [facility] for eRx and Interaction Alerts*Nurtec ODT 75mg Nurtec ODT 75mg, 1 (one) Tablet daily at onset of migraine headache # 8, 01/09/2024, Ref. x2. Active oral daily at onset of migraine headache , Notes to Pharmacist: *Reorder from [facility] for eRx and Interaction Alerts*Ozempic 2 mg/dose(8 mg/3 mL Ozempic( 2 mg/dose(8 mg/3 mL subcutaneous 2 mg one weekly ) Active -Hx Entry subcutaneous one weekly , Notes to Pharmacist: *Reorder from [facility] for eRx and Interaction Alerts*Taking Albuterol Sulfate 90mcg/actuat albuterol sulfate 90mcg/actuat, 2 Puff q 4 hours prn wheezing # 1, 01/22/2024, Ref. x2. Active inhalation q 4 hours prn wheezing , Notes to Pharmacist: *Pick strength-form from [facility] for eRX*Taking ALPRAZolam 0.5 MG Tablet ALPRAZolam 0.5mg, 1 (one) tablet two times daily, as needed FOR PANIC ATTACHS # 20, 10/12/2024, No Refill. Active Oral two times daily, as needed FOR PANIC ATTACHS , Notes to Pharmacist: DX: PANIC ATTACkS [place] Controlled Substance Reporting Database reviewed and patient found to be in compliance with prescription.Taking Ferrous Sulfate 325 (65 Fe)MG Ferrous Sulfate 325 (65 Fe)MG, 1 tablet Tablet daily or every other day # 30, 11/09/2019, Ref. x2. Active Oral daily or every other day , Notes to Pharmacist: *Pick strength-form from [employer] for eRX*Taking Ondansetron 4 MG Tablet Disintegrating ondansetron 4mg, 1 (one) Tablet as needed for nausea # 30, 02/25/2024, No Refill. Active Oral as needed for nausea Taking PROzac 20mg PROzac 20mg, 1 Capsule daily # 90, 12/04/2024, No Refill. Active oral daily , Notes to Pharmacist: *Reorder from [employer] for eRx and Interaction Alerts*Taking Vitamin B-12 [...] daily , Notes to Pharmacist: *Reorder from [employer] for eRx and Interaction Alerts*Taking Farxiga 10 [...] Notes to Pharmacist: *Reorder from [facility] for eRx and Interaction Alerts*Taking atorvastatin 40mg atorvastatin 40mg, 1 (one) Tablet at bedtime for high cholesterol # 90, 09/13/2024, Ref. x1. Active oral at bedtime for high cholesterol , Notes to Pharmacist: *Reorder from [facility] for eRx and Interaction Alerts*Taking cholecalciferol (vitamin D3) 50 mcg(2,000 uni cholecalciferol (vitamin D3) 50 mcg(2,000 uni, 1 (one) Tablet daily # 30, 11/20/2022, No Refill. Active oral daily , Notes to Pharmacist: *Reorder from [facility] for eRx and Interaction Alerts*Taking cyclobenzaprine 5mg cyclobenzaprine 5mg, 1 tablet Tablet at bedtime as needed for neck tension # 90, 11/04/2024, Ref. x1. Active oral at bedtime as needed for neck tension , Notes to Pharmacist: *Reorder from [facility] for eRx and Interaction Alerts*Taking Nurtec ODT 75mg Nurtec ODT 75mg, 1 (one) Tablet daily at onset of migraine headache # 8, 01/09/2024, Ref. x2. Active oral daily at onset of migraine headache , Notes to Pharmacist: *Reorder from [facility] for eRx and Interaction Alerts*Taking Ozempic 2 mg/dose(8 mg/3 mL Ozempic( 2 mg/dose(8 mg/3 mL subcutaneous 2 mg one weekly ) Active -Hx Entry subcutaneous one weekly , Notes to Pharmacist: *Reorder from [facility] for eRx and Interaction Alerts* * Allergies: A llergies Reconciled: AllergyAzithromycin: AllergyAzithromycin *CHEMICALS*: AllergyBanana (Diagnostic): AllergyBlueberry Flavor: AllergyBlueberry Flavor *PHARMACEUTICAL ADJUVANTS*: AllergyErythromycin: AllergyIodine: AllergyIodine *ANTISEPTICS & DISINFECTANTS*: AllergyLactase *DIETARY PRODUCTS/DIETARY MANAGEMENT PRODU: AllergyMontelukast Sodium *ANTIASTHMATIC AND BRONCHODILAT: AllergyPenicillins: AllergyRaspberry Flavor *PHARMACEUTICAL ADJUVANTS*: AllergyShellfish: AllergyShellfish-derived Products: Allergy * * Date:
--- OUTSIDE RECORDS SUMMARY | 2025-06-06 03:30 | XMS_ITS ---
Author Organization [facility] are Address [address] [place] [address] Care Team Providers Care Shank Maker Name Role Phone Tristen MRS. Moeller Primary Care Provider Benedicto Talley MD Unavailable Unavailable All Meade [phone] REASON FOR VISIT follow up Encounters Encounter Location Date Provider Diagnosis [facility] [address] [place] [address] 06/06/2025 All Meade Plan Of Treatment No Information Progress Notes * [place] ARAGONDOB:[birth year] (50 yo F)Acc No.[id number]:06/06/2025 Progress Notes Patient: Geo godinez [place] Meza Provider: Samantha Meade NP :1975 A ge:50 Y S ex:Female Date:06/06/2025 Address:[address] [place], [place] [id number] Pcp:MRS. Moeller Anastacia Ramon Subjective: * Chief Complaints: * F ollow up Billing Information: * Procedure Codes: * Electronic signature of All Meade NP on 06/27/2025 at 06:20 PM EST Sign off status: Pending * Provider: Samantha Meade NP Date: 08/07/2024 Generated for Xenia valdez/Fabio/eTransmitting on: 06:20 PM EST
[2025-06-27 17:18] VITALS: BP 156/76; PULSE 79; TEMP 36.8; O2SAT 100; BMI 44.6
--- OUTSIDE RECORDS SUMMARY | 2025-06-27 17:19 | XMS_ITS | Encounter Summary ---
Author Organization [facility] Address [address] [place] [address] Care Team Providers Care Fuse Spooler Name Role Phone Aislinn Merlos Primary Care Provider [phone] Encounter Details Date Type Department Care Team (Late st Contact Info) Description 10/07/2024 OnBase Documentation On File [address] [place] [address] Social History Tobacco Use Types Packs/Day Years Used Date Smoking Tobacco: Never Smokeless Tobacco: Never Alcohol Use Standard Drinks/Week Comments Not Currently 0 (1 standard drink = 0.6 oz pur e alcohol) [facility] Utilities Answer Date Recorded In the past [...] Score 6 05/31/2024 [facility] of Occupat ional Health - Occupational Stress [...] Info) Description 10/25/2025 11:00 AM EDT Telemedicine [facility] [address] [place] [address] Christophe Crowley NP [address] [place] [address] Follow-up disposition: Return in about 6 months (around 10/25/2025) for Christophe, video visit, Tuesdays. documented as of this encounter Visit Diagnoses Not on filedocumented in this encounter Care Teams Fuse Spooler Relationship Specialty Start Date End Date Aislinn Merlos PA [address] [place] [address] PCP - General 08/13/21 documented as of this encounter
--- OUTSIDE RECORDS SUMMARY | 2025-06-27 17:19 | XMS_ITS | Clinical Summary ---
Author Organization [employer] [facility] Address [address] [place] [address] Care Team Providers Care Assistant Warehouse Manager Name Role Phone Unassigned, Doctor Primary [...] prosecute any alcohol or drug abuse patient. [employer] Allergies Active Allergy Reactions Criticality Noted Date [...] ordered. Pt declined sleep study d/t director maternal child issues Holter report: NSR, sinus arrhythmia with [...] 016 Overview (07/11/2015): Normal cath Bronchitis 07/11/2015 Encounters Date Type Department Care Team Description 06/27/[address] [address] Tawana Crews NP Refill Request from Last 3 Months Immunizations Immunization Administration Dates Next Due Hepatitis [...] in Comments Son Ben Worrell lives in [place] Relation Name Status Comments Brother Alive Daughter [...] INFLUENZA VACCINE 01/28/2025 03/10/2024, 04/26/2019 COVID-19 VACCINE (2024-07 6 season) 2025 DIABETES HBA1C 09/01/2025 09/01/2024, 07/01, 01/17/2022, Additional history exists COLONOSCOPY 12/16/2032 12/16/2022, 0507/2021, 09/13/2020, Additional history exists COLORECTAL CANCER SCREENING & SURVEILLANCE 12/16/2032 HEPATITIS C SCREENING Completed 07/11/2015 Medical Devices Implanted Type Area [employer] Device Identifier Shelf Expiration Date Model / Serial / Lot Stent Uret Contour [id number] - [id number] - [id number] Implanted:Qty: 1 on 04/16/2018 by Jefe Veliz MD at [facility] Left: [employer] 12/28/2020 [id number] / [id number] / [id number] Procedures Procedure Name Priority Date/Time Associated Diagnosis [...] - 5.6 % 07/20/2024 6:53 PM EST [facility] Est Avg Glucose 134 mg/dL 6:53 PM EST [facility] Blood BLOOD SPECIMEN / Unknown Venipuncture / Unknown 07/19/2024 11:25 PM EST 07/19/2024 11:30 PM EST Narrative [facility] - 07/20/2024 6:53 PM EST This assay has been cleared by the FDA to be used as an aid in the diagnosis of diabetes and in identifying patients who may be at risk for developing diabetes. The threshold for diagnosis of diabetes is an HA1c result > or = 6.5%. Lanre Morrison MD LAB BLOOD ORDERABLES Zulay conley Result [facility] [address] [place] [address] * PAP, SUREPATH SCREEN (11/01/2021 12:43 PM EDT) Case Report GY - Gynecologic Cytology Case: [id number] Authorizing Provider: Mehnaz Gordon MD Collected: 11/01/2021 1243 Ordering Location: [facility] Received: 11/01/2021 1243 First Screen: Ángela Rust CT (ASCP) Specimen: Pap, SurePath Screen, Endocervical/Ecto cervical 11/05/2021 10:55 AM [facility] ([facility] BY [facility] [employer] [facility] [facility]) Clinical Information LMP 07/31/2021 Cryotherapy/Laser Therapy No Cycles Irregular Radiation/Chemoth erapy No No /Lactat ing No Abnormal Bleeding Yes Abnormal Pap History No Hormones No Previous Dx Hat Cone Inspector Malignancy No 11/05/2021 10:55 AM [facility] (ACCR[facility]ITED BY [facility] [employer] [facility] [facility]) Specimen Adequacy Satisfactory for evaluation, endocervical/carson sformation zone component present 11/05/2021 10:55 AM [facility] (ACCREDITED BY [facility] [employer]) Interpretation Negative for intraepithelial lesion or malignancy 11/05/2021 10:55 AM [facility] ([facility] BY [facility] [employer] [facility] [employer] [facility] S) at 1054 EDT Comments Acute inflammation. 11/05/2021 10:55 AM [facility] (ACCREDITED BY [facility] [employer] [facility]) Pap Disclaimer The Pap test is a screening test which carries an inherent false negative rate. These test results should be correlated with the patient's clinical findings and history. This Pap test was processed using an automated screening system. 11/05/2021 10:55 AM EDT [facility] ([facility] [facility] [employer] [facility]) Pap-Hat Cone Inspector CERVIX UTERI STRUCTURE / Unknown 11/01/2021 12:43 PM EDT 11/01/2021 12:43 PM EDT us Mehnaz Gordon MD LAB PATHOLOGY/CYTOLOGY ORDER BUFFY Final Result [facility] ([facility] THE [facility] [employer] [facility]) [address] [place] [address] * BREAST MAMMOGRAM 3D GRZEGORZ SCREENING BILATERAL [...] 21, 2020, TOMOSYNTHESIS BILATERAL DIAGNOSTIC performed at [facility] The breast tissue is almost entirely fat. [...] 21, 2020, TOMOSYNTHESIS BILATERAL DIAGNOSTIC performed at [facility]. The breast tissue is almost entirely fat. There are benign appearing calcifications in both breasts. There is no other significant finding on the study in either breast. BI-RADS: Benign (BIRADS 2) Recommendation: Mammogram of both breasts in 1 year. [facility] RADIOLOGY MAMMOGRAPHY ORDERABLES Final Result * HEPATITIS C ANTIBODY (07/11/2015 12:13 PM EST) Hepatitis C Virus Ab <0.1 0.0 - 0.9 s/co ratio [facility] 01 Comment: Negative: < 0.8 Indeterminate: 0.8 - 0.9 Positive: > 0.9 . In order to reduce the incidence of a false positive result, the CDC recommends that all s/co ratios between 1.0 and 10.9 be confirmed by a more specific supplemental or PCR testing. [facility] offers HCV Ab w/Reflex to Verification test #[id number]. Result Narrative [facility] 01 Comment: TESTING PERFORMED BY: [address] [id number] Director: Luther Fields MD 07/11/2015 12:1 3 PM EST 07/11/2015 8:32 PM EST Naila Vallejo MD LAB BLOOD ORDERABLES Fin al Result [facility] [address] [place] [address] NOT ON FILE [facility] 01 N/A from [...] 6:51 PM 04/05/2019 8:01 PM Care Teams Assistant Warehouse Manager Relationship Specialty Start Date End Date [...] prosecute any alcohol or drug abuse patient. [facility] ([facility])
--- OUTSIDE RECORDS SUMMARY | 2025-06-27 17:20 | XMS_ITS | Encounter Summary ---
Author Organization [employer] Address [address] [place] [address] Care Team Providers Care Automatic Casting Machine Operator Name Role Phone Unassigned, Doctor Primary Care Provider Unav ailable Reason for Visit * Reason Onset Date Comments Refill Request 06/27/2025 Encounter Details Date Type Department Care Team (Late st Contact Info) Description 06/27/2025 Refill [facility] [place] [address] [place], [place] [id number] Tawana Crews, SHOT PEEN OPERATOR [address] [place] [address] Refill Request Social History Tobacco Use Types [...] Answer Date of Assessment Author Status No 07/21/2024 6:55 AM EST Gilbert Olivares R N Active * Are you blind or do you have serious difficulty seeing, even when wearing glasses? Answer Date of Assessment Author Status No 07/21/2024 6:55 AM EST Gilbert Olivares R N Active * Do you have serious difficulty walking or climbing stairs? (5 years old or older) Answer Date of Assessment Author Status No 07/21/2024 6:55 AM EST Gilbert Olivares R N Active * Do you have difficulty dressing or bathing? (5 years old or older) Answer Date of Assessment Author Status No 07/21/2024 6:55 AM EST Gilbert Olivares R N Active * Because of a physical, mental, or emotional condition, do you have difficulty doing errands alone such as visiting a doctor's office or shopping? (15 years old or older) Answer Date of Assessment Author Status No 07/21/2024 6:55 AM EST Gilbert Olivares R N Active documented as of this encounter Mental Status * Because of a physical, mental, or emotional condition, do you have serious difficulty concentrating, remembering, or making decisions? (5 years old or older) Answer Entry Date Author Status No 07/21/2024 6:55 AM EST Gilbert Olivares R N Active documented in this encounter Consult Notes * Bart You - 06/27/2025 7:54 AM EST Pt pharmacy is requesting refills on fremanezumab-vfrm (Ajovy Autoinjector) 225 mg/1.5 mL Subcutaneous Auto-Injector Thanks Bart You CNA,MA documented in this encounter Plan of Treatment Not on file documented as of this encounter Visit Diagnoses Not on filedocumented in this encounter Additional Health Concerns Assessment Noted Time A fall risk assessment has been complete d for the patient 10/04/2024 8:59 AM EDT documented as of this encounter Care Teams Automatic Casting Machine Operator Relationship Specialty Start Date End Date [...] prosecute any alcohol or drug abuse patient. [employer]
--- OUTSIDE RECORDS SUMMARY | 2025-06-27 17:20 | XMS_ITS | Patient Health Record ---
Author Organization [facility] Address [address] [place] [address] Care Team Providers Care Healthcare Administration Intern Name Role Phone Sunni Ramon Primary Care Provider Benoit Chance [phone] Allergies Allergen (clinical drug ingredient) Drug/Non Drug [...] Status W/U Status Risk Notes Problem Cervicalgia (94977751) Cervicalgia (M54.2) Active confirmed Problem Lumbar radiculopathy (980483121) Radiculopathy, lumbar region (M54.16) Active confirmed Problem Cervical radiculopathy (01768414) Cervical radiculopathy (M54.12) Active confirmed Problem Neck pain (18603523) Neck pain (M54.2) Active confirmed Problem Post-concussion syndrome (97635471) Post-concussion syndrome (F07.81) Active confirmed Plan Of Treatment No Information Insurance Providers Payer Name Payer Address Payer Phone Subscriber Number Group Number Insured Name Patient Relationship to Insured Coverage Start Date Coverage End Date [employer] [address] [address] [place] [address] [id number] [facility] [place] Self - patient [...]
--- OUTSIDE RECORDS SUMMARY | 2025-06-27 17:20 | XMS_ITS | Encounter Summary ---
Author Organization [facility] Address [address] [place] [address] Care Team Providers Care Application Helper Name Role Phone Naila Vallejo MD Primary Care Provider [phone] Aislinn Merlos Primary Care Provider Sandra Wood Unavailable Unavailable Serena Meyer Unavailable Unavailable Krys Oropeza RN Unavailable Unavailable Reason for Visit * Reason Onset Date Comments Obesity 05/11/2015 Med/Surg Encounter Details Date Type Department Care Team (Late st Contact Info) Description 05/11/2015 Documentation [facility] [address] [place] [phone] Tawny Chaudhary Obesity (Med/Surg) Social History [...] Info) Description 10/25/2025 11:00 AM EDT Telemedicine [facility] [address] [place] [phone] Christophe Crowley NP [address] [place] [address] Follow-up disposition: Return in about 6 months (around 10/25/2025) for Riddhiing, video visit, Tuesdays. documented as of this encounter Visit Diagnoses Not on filedocumented in this encounter Care Teams Application Helper Relationship Specialty Start Date End Date Naila Vallejo MD [address] [place] [address] PCP - General Family Medicine 05/11/15 08/12/21 Aislinn Merlos PA [address] [place], [place] [id number] PCP - General 08/13/21 Sandra Wood [facility] 05/13/2405/01 Serena Meyer [facility] 05/24/2406/01 Krys Oropeza, triple drum operator [facility] 06/01/24 4 documented as of this encounter
--- OUTSIDE RECORDS SUMMARY | 2025-06-27 17:20 | XMS_ITS | Clinical Summary ---
Author Organization [employer] Address [address] [place] [address], [facility] [address] [place] [address] Phone Care Team Providers Care Weeder Thinner Name Role Phone Unavailable Primary Care Provider [...] Continuous Glucose Sensor (FreeStyle Philip 2 Sensor) [facility] USE ONE sensor replace sensor EVERY 14 [...] patient's age to complete this topic [place] [employer] [place]
--- OUTSIDE RECORDS SUMMARY | 2025-06-27 17:21 | XMS_ITS | Clinical Summary ---
Author Organization [facility] Address [address] [place] [address] Care Team Providers Care Plaster Pattern Caster Name Role Phone Aislinn Merlos Primary Care Provider [phone] Allergies Active Allergy Reactions Criticality Noted Date [...] use of insulin ([facility]) Inject 0.5 mLs (7.5 mg total) subcutaneously every 7 (seven) days 2 mL 3 04/26/20 25 Active dapagliflozin propanediol (FARXIGA) 10 mg tabletIndications :Type 2 diabetes mellitus without complication, with long-term current use of insulin ([facility]) Take 1 tablet (10 mg total) by mouth once daily 90 tablet 3 06/08/20 25 026 Active blood glucose diagnostic test stripIndications: Type 2 diabetes mellitus without complication, with long-term current use of insulin ([facility]) Use to check 3 times a day for blood glucose. 100 each 3 06/08/20 25 Active lancetsIndication s:Type 2 diabetes mellitus without complication, with long-term current use of insulin ([facility]) Use 3 times a day for glucose mornitoring. 100 each 3 06/08/20 25 Active pen needle, diabetic 32 gauge x 5/16 needle Use as directed 100 each 12 06/08/20 25 026 Active dapagliflozin propanediol (FARXIGA) 10 mg tabletIndications :Type 2 diabetes mellitus without complication, with long-term current use of insulin ([facility]) Take 1 tablet (10 mg total) by [...] use of insulin ([facility]) 12/06/2024 Obesity, Class III, BMI 40-49.9 (morbid obesity) 12/06/2024 Hypercholesterolemia 12/06/2024 Seizures ([facility]) 06/29/2019 Resolved Problems Problem Noted Date Diagnosed Date Resolved Date Spell of abnormal behavior 02/22/2020 0 02/24/2020 Encounters Date Type Department Care Team Description 06/16/2025 Documentation Pool Outpatient Pharmacy [address] [facility] [address] [place] [address] Brenda Padilla Medication Prior Authorization (Mounjaro 7.5mg) 04/26/2025 11:00 AM EDT Telemedicine Pool Endocrinology [address] [facility] [place] [id number] Christophe Crowley NP Type 2 diabetes mellitus without complication, without long-term current use of insulin ([facility]) (Primary Dx); Obesity, Class III, BMI 40-49.9 (morbid obesity) ([facility]); Hypercholesterolemia from Last 3 Months Family History [...] 0.6 oz pur e alcohol) [facility] Utilities Answer Date Recorded In the past 12 months has e Eachpal, gas, oil, or water [employer] threatened to shut off services in your home? Yes 05/31/2024 Overall Financial Resource Strain (CARDIA) Answe r Date Recorded How hard is it for you to pa y for the very basics like food, housing, medical care, and heating? Somewhat hard 05/31/2024 PHQ-2 Answer Date Recorded Patient Health Questionnaire-2 Score 6 05/31/2024 [employer] - Occupational Stress [...] were you homeless or living in a longterm (including now)? No 05/31/2024 Interpersonal Safety Answer [...] Info) Description 10/25/2025 11:00 AM EDT Telemedicine Pool Endocrinology [address] [place] [address] Christophe Crowley NP [address] [place] [address] Follow-up disposition: Return in about 6 months [...] Date/Time Associated Diagnosis Comments POC HBA1C (GLYCOHEMOGLOBIN) ([facility] ONLY) Routine 12/06/2024 1:17 PM EDT from Last 3 Months or Most Recently Relevant to Health Maintenance Results * POC HBA1C (Glycohemoglobin) ([facility] only) (12/06/2024 1:17 PM EDT) Pathologist [facility] POC Hemoglobin A1C (Glycated) 5.5 4.3 - 6.0 % ED [facility] 12/06/2024 1:24 PM EDT [facility] POINT OF CARE TESTING PROGRAM Average Blood Glucose 108 mg/dL ED [facility] 12/06/2024 1:24 PM EDT [facility] POINT OF CARE TESTING PROGRAM Comment: Interpretive Data AVERAGE BLOOD GLUCOSE ASSOCIATED WITH THIS PERCENT GLYCATED HEMOGLOBIN (BASED ON DCCT) Blood 12/06/2024 1:17 PM EDT 12/06/2024 1:24 PM EDT Narrative [facility] POINT OF CARE TESTING PROGRAM - 12/06/2024 1:24 PM EDT Interpretive Data THE ADA HAS MADE THE FOLLOWING RECOMMENDATIONS HBA1C results in the range of 5.7-6.4% are suggestive of prediabetes. HBA1C results in the range of > or = 6.5% are diagnostic for diabetes. POC TEST(S) ABOVE PERFORMED AT THE PATIENT CARE LOCATION AND OVERSEEN BY THE [facility] POCT PROGRAM. us Christophe Crowley NP POINT OF CARE TEST ORDERABLES Fi nal Result [facility] POINT OF CARE TESTING PROGRAM [id number], [place] [address] from Last 3 Months or Most Recently Relevant to Health Maintenance Advance Directives For more information, please contact: [phone] * Full Code (Latest Code Status on File) Date Activated Date Inactivated Comments 02/22/2020 5:03 PM 02/24/2020 4:53 PM Care Teams Plaster Pattern Caster Relationship Specialty Start Date End Date Aislinn Merlos PA [address] [place] [id number] PCP - General 08/13/21
--- OUTSIDE RECORDS SUMMARY | 2025-06-27 17:22 | XMS_ITS | Patient Health Record ---
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 Sunni Ramon Primary Care Provider Benedicto Talley MD Unavailable Unavailable DR. Benedicto Talley Unavailable [phone] Migration, Provider Unavailable Unavailable All Meade Unavailable [phone] Results Component Value Reference Range Notes IADNA SARSCOV2 & INF A&B & R SV MULT AMP PROBE TQ ([id number]) Reviewed date:09/06/2024 12:00:00 AM Interpretation: Performing Lab: Notes/Report: IADNA SARSCOV2 & INF A&B & RSV MULT AMP PROBE not dete cted NR BLOOD GLUCOSE-HOME MONITOR ( [id number]) Reviewed date:10/05/2024 12:00:00 AM Interpretation: Performing Lab: [...] UA - URINE SEDIMENT x NR CALCIFEDIOL (37744) Reviewed date:10/13/2024 12:00:00 AM Interpretation: Performing Lab: Notes/Report: Vitamin D, 25-Hydroxy 42.7 ng/mL 30.0-100.0 Cardiovascular Report Reviewed date:10/13/2024 12:00:00 AM Interpretation: Performing Lab: Notes/Report: Interpretation Note NR PDF . NR CBC, PLATELETS & AUT DIFF ([id number] 0279) Reviewed date:10/13/2024 12:00:00 AM Interpretation: Performing Lab: [...] 11.7-15.4 WBC 8.6 x10E3/uL 3.4-10.8 LIPID PANEL (21800) Reviewed date:10/13/2024 12:00:00 AM Interpretation: Performing Lab: Notes/Report: Cholesterol, Total 200 mg/dL 100-199 HDL Cholesterol 39 mg/dL >39 LDL Chol Calc ([facility]) 141 mg/dL 0-99 Triglycerides 112 mg/dL 0-149 VLDL Cholesterol Ollie 20 mg/dL 5-40 METABOLIC PANEL, COMPREHENSI VE ([id number]) Reviewed date:10/13/2024 12:00:00 AM Interpretation: Performing Lab: [...] 141 mmol/L 134-144 Microalb/Creat Ratio, Sheng Giraldo (02346) Reviewed date:10/13/2024 12:00:00 AM Interpretation: Performing Lab: [...] for neck tension; Duration: 90 *Reorder from [facility] for eRx and Interaction Alerts* 11/04/2024 Active Ferrous Sulfate 325 (65 Fe)MG Ferrous Sulfate 325 (65 Fe)MG, 1 tablet Tablet daily or every other day # 30, 11/09/2019, Ref. x2. Active Oral daily or every other day; Duration: 30 *Pick strength-form from [facility] for eRX* 11/09/2019 Active cholecalciferol (vitamin D3) 50 mcg(2,000 uni cholecalciferol (vitamin D3) 50 mcg(2,000 uni, 1 (one) Tablet daily # 30, 11/20/2022, No Refill. Active oral daily; Duration: 30 *[facility] Alert[facility]* 11/20/2022 Active Vitamin B-12 1000 MCG Tablet Vitamin B-12 1000MCG, 1 (one) Tablet daily # 30, 04/27/2021, No Refill. Active Oral daily; Duration: 30 04/27/2021 Active Ozempic 2 mg/dose(8 mg/3 mL Ozempic( 2 mg/dose(8 mg/3 mL subcutaneous 2 mg one weekly ) Active -Hx Entry subcutaneous one weekly; Duration: 0 *Reorder from [facility] for eRx and Interaction Alerts* 11/04/2024 Active PROzac 20mg PROzac 20mg, 1 Capsule daily # 90, 12/04/2024, No Refill. Active oral daily; Duration: 90 *Reorder from [facility] for eRx and Interaction Alerts* 12/04/2024 Active Nurtec ODT 75mg Nurtec ODT 75mg, 1 (one) Tablet daily at onset of migraine headache # 8, 01/09/2024, Ref. x2. Active oral daily at onset of migraine headache; Duration: 30 *Reorder from [facility] for eRx and Interaction Alerts* 01/09/2024 [...] Entry Oral daily; Duration: 30 *[facility] Interaction Alert[facility]* 04/27/2021 Active ALPRAZolam 0.5 MG Tablet ALPRAZolam 0.5mg, 1 (one) tablet two times daily, as needed FOR PANIC ATTACHS # 20, 10/12/2024, No Refill. Active Oral two times daily, as needed FOR PANIC ATTACHS; Duration: 10 DX: PANIC ATTACkS [place] Controlled Substance Reporting Database reviewed and patient found to be in compliance with prescription. 10/12/2024 Active Ajovy Autoinjector 225mg/1.5 mL Ajovy Autoinjector( 225mg/1.5 mL subcutaneous 1 every 12 weeks ) Active -Hx Entry subcutaneous every 12 weeks; Duration: 0 *Reorder from [facility] for eRx and Interaction Alerts* 11/04/2024 Active Atorvastatin Calcium 40 MG Tablet 1 tablet Orally Once a day; Duration: 30 days follow up Active PROzac 20 MG Capsule PROzac 20mg, 1 Capsule daily # 90, 12/04/2024, No Refill. Active Oral daily; Duration: 90 12/04/2024 Active Albuterol Sulfate 90mcg/actuat albuterol sulfate 90mcg/actuat, 2 Puff q 4 hours prn wheezing # 1, 01/22/2024, Ref. x2. Active inhalation q 4 hours prn wheezing; Duration: 30 *Pick strength-form from [facility] for eRX* 01/22/2024 Active FreeStyle Philip 3 Sensor - Miscellaneous FreeStyle Philip 3 Sensor( miscellaneous every 14 days ) Active -Hx Entry miscellaneous every 14 days; Duration: 0 11/04/2024 Active Immunizations Vaccine [place] [id number] TDAP IM Intramuscular 10/05/2024 Pending ,Immuniz ationName, ' : Tdap (7 years and up) (25143) ,Status,' : Ordered Influenza, unspecified formulation IM Intramuscular 03/10/2024 Administered ,ImmunizationNa me, ' : Influenza, inj, MDCK, preservative free, q.valent (44535) ,Status,' : Complete Flu Shot IM Intramuscular 03/10/2024 Administered ,I mmunizationName, ' : Influenza, inj, MDCK, preservative free, q.valent (76896) ,Status,' : Complete Social History Social History [...] Problem Viral infection of the digestive tract (295812494) Viral intestinal infection, unspecified (A08.4) Active confirmed This appears viral. Discussed OTC medications for symptomatic relief. Educated patient on viral vs bacterial infections and use of antibiotics. Provided return precautions. Reminded patient of the importance of hygiene to prevent transmission. Please re-check if no improvement in 1 week OSIW. Problem Iron deficiency anemia (11494075) Iron deficiency anemia, unspecified (D50.9) Active confirmed Continue OTC Ferrous Sulfate 325 mg daily. Will check CBC w/ diff and iron studies. Problem Vitamin B>12< deficiency anaemia (68384961) Vitamin B12 deficiency anemia, unspecified (D51.9) Active confirmed Problem Type II diabetes mellitus without complication (242428446) Type 2 diabetes mellitus without complications (E11.9) Active confirmed Managed by endocrinology. A1c controlled at this time. Problem Vitamin A deficiency (84923012) Vitamin A deficiency, unspecified (E50.9) Active confirmed Patient states she has recently been diagnosed with Vitamin A deficiency by her math and science instructor and started on OTC supplements about 6 weeks ago. Will check Vitamin A levels. Discussed dangers associated with fat-soluble vitamins and not going over recommended daily amount. Problem Vitamin B deficiency (43680971) Deficiency of other specified B group vitamins (E53.8) Active confirmed Rechecking labs today Problem Vitamin D deficiency (50785820) Vitamin D deficiency, unspecified (E55.9) Active confirmed Labs pending. Will call patient with results and treat as indicated. Continue vitamin Vitamin D3, 2000 units a day. Problem Morbid obesity (disorder) (061164853) Morbid (severe) obesity due to excess calories (E66.01) Active confirmed Encouraged heart healthy diet modifications and increased exercise of moderate intensity 3-4 times per week as tolerated. Reviewed the numerous benefits of reducing weight. Problem Hyperlipidemia (36894215) Hyperlipidemia, unspecified (E78.5) Active confirmed Rechecking lipid panel. Continue atorvastatin 40 mg daily. Encouraged lifestyle modification in diet and exercise regimen to reduce cholesterol. - Continue lowering intake of high-saturated fat in diet. - Goal lipid levels: Total cholesterol: < 170 Triglycerides: < 150 HDL: > 40 LDL: < 70 Problem Bipolar disorder (40461330) Bipolar disorder, unspecified (F31.9) Active confirmed Follow up with her psychiatrist and her therapist. Problem Anxiety disorder (541593320) Anxiety disorder, unspecified (F41.9) Active confirmed Continue Prozac. Patient also has Xanax available as needed. Will have our office reach out to [facility] psychiatry to inquire about follow-up. Will refer elsewhere if needed for psychiatry services. Problem Post-traumatic stress disorder (57667997) Post-traumatic stress disorder, unspecified (F43.10) Active confirmed Patient started on Zoloft 50 mg daily. Psychiatrist commented he may consider adding Minipress in case there is no improvement in nightmares. Continue to monitor. Problem Epilepsy (38528960) Epilepsy, unspecified, not intractable, without status epilepticus (G40.909) Active confirmed Agreed to refill one more time in light of the COVID-19 pandemic, however patient needs to get all future refills of her Ativan from her Neurologist who initially prescribed the medication. Clear per [employer] database. Problem Migraine without aura, not refractory (disorder) (960811057) Migraine, unspecified, not intractable, without status migrainosus [...] Patient given strict return precautions. Problem Insomnia (142217911) Insomnia, unspecified (G47.00) Active confirmed Problem Obstructive sleep apnea syndrome (disorder) (90444559) Obstructive sleep apnea (adult) (pediatric) (G47.33) Active confirmed Patient has still not heard from [facility] Pulmonology to schedule sleep study. Will refer to [facility] upon patient request. Problem Carpal tunnel syndrome (16330092) Carpal tunnel syndrome, right upper limb (G56.01) Active confirmed Tendonitis vs CTS. Advised patient she will need to stop crocheting at least for now and will place her in a CTS splint with a thumb stabilizer to help with trigger thumb. Re-check in 2 weeks if no improvement. . Problem Polyneuropathy (45881760) Polyneuropathy, unspecified (G62.9) Active confirmed Problem Benign intracranial hypertension (17114645) Benign intracranial hypertension (G93.2) Active confirmed follow-up with neurology. Problem Compression of brain (10182998) Compression of brain (G93.5) Active confirmed Diagnosed in 2007. Followed by [facility] neurology. Problem Visual disturbance (04308670) Unspecified visual disturbance (H53.9) Active confirmed Called [facility] for suggestion on patients complaint of worsening subjective double vision, as she already has appt shceudled with her office for same complaint made at visit last week. Her current appointment scheduled for 12/05 was moved to 11/28 per [facility] and recommended Ms. Kahn contact their office if worsening eye related symptoms occur for advice/recommen dation. Patient made aware. Problem Otitis media (49175139) Otitis media, unspecified, left ear (H66.92) Active confirmed Starting Cefedinir x 5 days. Recommend OTC Tylenol +/- Motrin for pain and fever control. Return in 2-3 days if no improvement or worsening of pain occurs. Problem Otalgia of right ear (finding) (7156963864) Otalgia, right ear (H92.01) Active confirmed Physical exam unremarkable with no signs of infection. Problem Bilateral otalgia (696805339) Otalgia, bilateral (H92.03) Active confirmed Problem Pain of ear (finding) (436065956) Otalgia, unspecified ear (H92.09) Active confirmed Physical exam unremarkable, with no sign of otitis media or externa. Likely due to seasonal allergies/conge stion causing fluid to build behind TM. Recommended OTC antihistamine. Return as needed for increased pain, fever, or onset of ear drainage. Problem Essential hypertension (67409251) Essential (primary) hypertension (I10) Active confirmed Controlled off of antihypertensiv e at this time. Problem Diastolic heart failure (908078756) Unspecified diastolic (congestive) heart failure (I50.30) Active confirmed Patient reports normal echo by cardiology. No follow up scheduled. Problem Heart failure (93509539) Heart failure, unspecified (I50.9) Active confirmed Stable. Continue current treatment. Follow up with cardiology. Problem Heart disease (00087597) Heart disease, unspecified (I51.9) Active confirmed Echo 12/24/16: quality of study fair, EF 55-60%, nor LV size & fxn, no RWMA. Impaired LV relaxation / grade 1 diastolic dysfxn, trace TR On Lasix. Referring to cardiology. Problem Orthostatic hypotension (79545603) Orthostatic hypotension (I95.1) Active confirmed Orthostatic vitals performed: Laying - Blood pressure 124/74, HR 102 Standing - Blood pressure 118/60, HR 112 After standing for 2 minutes - patient became dizzy and had to sit down. BP 124/70. Findings consistent with orthostatic hypotension. Encouraged patient to drink plenty of fluids, and to avoid standing up too quickly. Problem Acute sinusitis (66828603) Acute sinusitis, unspecified (J01.90) Active confirmed Doxycycline 100 mg 1 p.o. b.i.d. x10 days. Recheck if not better in 3 to 4 days or sooner if worsening. Problem Acute pharyngitis (313042739) Acute pharyngitis, unspecified (J02.9) Active confirmed Rapid strep negative. Problem Acute upper respiratory infection (97504621) Acute upper respiratory infection, unspecified (J06.9) Active confirmed Start daily oral antihistamine and Flonase intranasal therapy for nasal congestion. Also recommend NetiPot sinus rinses, Mucinex for congestion. Recommend throat coat tea, lozenges, Chloraseptic spray for sore throat. If worsening throat pain, swelling in throat, muffling of voice please return to clinic. Problem Acute bronchitis (64401711) Acute bronchitis, unspecified (J20.9) Active confirmed Recheck if not better in 3 to 4 days or sooner if worsening. Problem Chronic sinusitis (44407515) Chronic sinusitis, unspecified (J32.9) Active confirmed Likely viral. Encouraged patient to stay well hydrated and rest as needed. May take benzonatate for cough. Problem Exacerbation of asthma (109085336) Unspecified asthma with (acute) exacerbation (J45.901) Active confirmed Refilling albuterol MDI and starting prednisone. Call 911 for difficulty breathing Problem Uncomplicated asthma (disorder) (684599619) Unspecified asthma, uncomplicated (J45.909) Active confirmed Continue Trelegy daily and albuterol as needed. Sending prescription for spacer chamber. Patient encouraged to increase albuterol inhaler use to every 4-6 hours for the next 2 days and then resume as needed. Problem Gastro-esophageal reflux disease without esophagitis (112500818) Gastro-esophage al reflux disease without esophagitis (K21.9) Active confirmed Avoid NSAIDs. Continue Omeprazole once daily. Patient has known history of reucrrent gastric ulcers secondary to chronic NSAID use. Problem Gastric ulcer (561207988) Gastric ulcer, unspecified as acute or chronic, without hemorrhage or perforation (K25.9) Active confirmed Continue to avoid use of NSAIDs. Repeat EGD in 2020, per GI recommendations . Problem Non-infective enteritis and colitis (295862191) Noninfective gastroenteritis and colitis, unspecified (K52.9) Active confirmed Symptoms likely due to gastroenteritis . VSS, no signs of volume depletion. No fevers, severe pain, bloody/mucoid stools, tolerating fluid PO intake today, and estimated BMs/day < 6. Discussed conservative treatment with symptomatic management, rehydration and bland diet advance as tolerated. Discussed proper hygiene and provided return/ED precautions to patient. Problem Fatty liver (224866762) Fatty (change of) liver, not elsewhere classified [...] alcohol, low saturated fat diet. Problem Urticaria (28701225) Urticaria, unspecified (L50.9) Active confirmed Improving w/ Lyndsey once daily. Problem Osteoarthritis (596231095) Unspecified osteoarthritis, unspecified site (M19.90) Active confirmed Desires to continue use of PRN Naproxen. Will Rx Vimovo for the patient to provide GI protection, however cautioned the patient about regular use of this medication given her hx of gastritis in the past secondary to NSAIDs. Patient agrees with plan. Problem Pain in wrist (71846057) Pain in right wrist (M25.531) Active confirmed Possibly secondary to carpal tunnel syndrome. Recommended patient to wear wrist splint for the next 2 weeks. Try conservative treatment at home including ice/heat, Tylenol as needed for pain. Patient given a written prescription for right wrist splint to machine operator picker at pharmacy. Problem Pain in wrist (64675047) Pain in left wrist (M25.532) Active confirmed [...] pain persist. Problem Disorder of wrist joint (496137133) Other specified joint disorders, unspecified wrist (M25.839) Active confirmed See above fo r details. Problem Lumbar radiculopathy (569370291) Radiculopathy, lumbar region (M54.16) Active confirmed MRI L-Spine w/o contrast ordered at last visit, awaiting medicaid approval at this time. Continue PT sessions 2-3x/week with [facility]. Has few weeks left remaining. Problem Spasm (87773888) Other muscle spasm (M62.838) Active confirmed Refilling Flexeril. Back pain appears chronic in nature. Recommend heat and ice massage with gentle stretching for back pain. Problem Acquired trigger finger (0690745) Trigger thumb, right thumb (M65.311) Active confirmed [...] would likely be sufficient. Problem Achilles bursitis (914594813) Achilles tendinitis, unspecified leg (M76.60) Active confirmed Follow up with [facility]. Problem Calculus of kidney (23652987) Calculus of kidney (N20.0) Active confirmed Recommend following back up with Urology for further evaluation. Problem Urinary tract infectious disease (disorder) (54042573) Urinary tract infection, site not specified (N39.0) Active confirmed Patient denies symptom improvement on Macrobid, switching to Bactrim DS. Urine culture sent. Increase fluid intake and urine output, holding urine no longer than two hours if possible before voiding. Problem Abscess of vulva (50806002) Abscess of vulva (N76.4) Active confirmed Followed by [facility] - Continue Bactrim DS 1 tablet BID as directed. Improved s/p I&D performed at last visit. Keep scheduled f/u appt with [facility] for next week. Problem Excessive and frequent menstruation (687754236) Excessive and frequent menstruation with regular cycle (N92.0) Active confirmed Patient is trying to concieve. Treating for SHIKHA at this time, likely due to menorrhagia. Problem Irregular menstruation (09233665) Irregular menstruation, unspecified (N92.6) Active confirmed HCG negative. Problem Abnormal uterine bleeding (84176914640867) Abnormal uterine and vaginal bleeding, unspecified (N93.9) Active confirmed Refill of Provera 20 mg TID x 7 days for AUB. Follow up appt scheduled with [facility] in November 2021. Problem Tachycardia (5778301) Tachycardia, unspecified (R00.0) Active confirmed - Follow up with Cardiology as soon as possible. Problem Elevated blood pressure reading without diagnosis of hypertension (460106640) Elevated blood-pressure reading, without diagnosis of hypertension [...] in 1 month. Problem Shortness of breath (589100862) Shortness of breath (R06.02) Active confirmed Duoneb given with marginal improvement in symptoms. Sending patient to ED for PE work-up. She declines EMS but states that she will drive directly to ED. Charge nurse called. Vital signs stable at discharge. Problem Chest pain (01602262) Other chest pain (R07.89) Active confirmed Recommended follow up with [facility]. Problem Chest pain (58523268) Chest pain, unspecified (R07.9) Active confirmed Awaiting referral to Cardiology at this time. Problem Epigastric pain (29767792) Epigastric pain (R10.13) Active confirmed New abdominal pain since starting Ozempic. Will check labs today. Will call patient with results and treat as indicated. Problem Lower abdominal pain (26103349) Lower abdominal pain, unspecified (R10.30) Active confirmed Recommended checking additional labs such as CBC, CMP, but patient denied at this time. If symptoms continue, recommended she follow up for labs. Problem Abdominal pain (42002147) Unspecified abdominal pain (R10.9) Active confirmed Updating labs today. Checking also pancreatic enzymes. Problem Nausea (335023513) Nausea (R11.0) Active confirmed Nausea is associated with Ozempic injections. Resending prescription for Zofran to her pharmacy. Patient encouraged to eat smaller and more frequent meals. Problem Vomiting (811456702) Vomiting, unspecified (R11.10) Active confirmed Patient tried Zofran with no relief. Will start Phenergan for nausea/vomiting . The patient is aware of the sedative effects of this medication and will not drive or drink alcohol while taking it. Problem Dysphagia (29125369) Dysphagia, unspecified (R13.10) Active confirmed Follow-up with GI. Problem Diarrhea (57377297) Diarrhea, unspecified (R19.7) Active confirmed Likely due to recent antibiotic use - Will send stool culture + C. diff EUGENIA. Avoid Immodium at this time as bacterial etiology can not be excluded. Increase PO hydration at home. Will Rx Bentyl for abdominal cramping as needed. Problem Paresthesia (finding) (63338242) Paresthesia of skin (R20.2) Active confirmed Followed by Neurology. Continue Gabapentin 300 mg at bedtime. Problem Abnormal gait (62564813) Unsteadiness on feet (R26.81) Active confirmed Referring for PT. Problem Dysuria (73540035) Dysuria (R30.0) Active confirmed Urinalysi s positive for excess glucose, negative for blood leukoesterase or nitrites. Sending urine sample for culture and sensitivity. Will call patient with results and treat as indicated. Problem Unspecified symptoms and signs involving the genitourinary system (R39.9) Active confirmed Problem Dizziness and giddiness (819353355) Dizziness and giddiness (R42) Active confirmed Patient does have nystagmus and ear fullness. Will try her on meclizine for symptoms of vertigo. Also recommend Zyrtec and Flonase however patient reports that she is unable to tolerate Flonase. Follow through with cardiology referral. Problem Fever (281232176) Fever, unspecified (R50.9) Active confirmed May be related to cellulitis on her right breast, which started approx. 1 week ago. Consider right breast mammogram vs. ULS if no improvement in 2-3 days. Follow up recommended. Problem Malaise (448616010) Other malaise (R53.81) Active confirmed Continue to follow up with PT for strengthening exercises. Problem Fatigue (53767388) Other fatigue (R53.83) Active confirmed Multifactorial in nature given her comorbidities and sedentary lifestyle. Chronic fatigue. Problem Syncope and collapse (177420084) Syncope and collapse (R55) Active confirmed Cardiology referral pending per [facility] records. ED precautions reviewed. Patient encouraged to check blood sugar if she feels presyncope symptoms. Problem Localized enlarged lymph nodes (110274592) Localized enlarged lymph nodes (R59.0) Active confirmed Mammogram in Jul 2020 - BIRADS2. Will perform ULS of the swollen palpable area in the left supraclavicular region for further evaluation. Possibly related to recent COVID-19 vaccine in the L. deltoid from 3 weeks ago. Problem Symptom: generalized (896767407) Other general symptoms and signs (R68.89) Active [...] reduce viral spread. Problem Blood chemistry abnormal (250337468) Other specified abnormal findings of blood chemistry (R79.89) Active confirmed Redrawing liver panel and hepatitis labs today. Suspect Tylenol caused LFT elevation. Patient to avoid Tylenol and EtOH going forward. Will contact patient with results of lab work. Will consider NAFLD workup if LFTs remain elevated despite discontinuing Tylenol use. Problem Glycosuria (85392010) Glycosuria (R81) Active confirmed UA with ++++ glucose, however FSBS 316 in the office. See diabetes note above. Problem Adult health examination (189619810) Encounter for general adult medical examination without abnormal findings (Z00.00) Active confirmed Discussed appropriate health maintenance and prevention topics with patient. Reviewed vaccinations and screening tests. Discussed healthy lifestyle habits to prevent disease and promote wellbeing. Labs pending, will call patient with results and treat as indicated. Re-check for annual PE in 1 year. Problem History and physical examination, follow-up (592143037) Encounter for follow-up examination after completed treatment for conditions other than malignant neoplasm (Z09) Active confirmed see HPI Problem Screening for malignant neoplasm of cervix (164003428) Encounter for screening for malignant neoplasm of cervix (Z12.4) Active confirmed History of multiple abnormal paps. Refer to [facility] to updating Pap upon patient request. Problem Vaccination given (246789482) Encounter for immunization (Z23) Active confirmed Tdap given by CG in Left deltoid Lot:[id number] EXP: 02/23/27 Tdap updated today. Problem test equivocal (027884474) Encounter for test, result unknown (Z32.00) Active confirmed Urine HCG negative. Will perfrom serum qualatative to confirm (patient requested). Avoid restarting Phentermine until lab confirms not . Patient agrees with the plan. Problem test positive (748018399) Encounter for test, result positive (Z32.01) Active confirmed Will perform serum HCG qual/quant performed, since our office is out of urine HCG test at this time. Starting vitamin once daily. Follow up with [facility] if confirmed. Problem care (599247884) Encounter for supervision of normal , unspecified, unspecified trimester (Z34.90) Active confirmed Problem Dietary management surveillance (356854333) Dietary counseling and surveillance (Z71.3) Active confirmed [...] can cause defects. . Problem Counseling requested (045701176) Persons encountering health services in other specified circumstances (Z76.89) Active confirmed Although phentermine may be an okay option for her should she continue to lose weight, in light of recent events, advised that we will hold this prescription for now. Encouraged her to continue weight loss and exercise and after her neurology evaluation consider restarting or discussing an alternative option. Problem Health status (495583592) Other specified health status (Z78.9) Active confirmed Followed by Fert[facility] specialist. Currently on Provera but plans to start Clomid later this year. Problem History of urinary stone (946923616) Personal history of urinary calculi (Z87.442) Active [...] Urology on 01/14. Problem Pure hypercholesterole susie (499536234) Pure hypercholestero lemia, unspecified (E78.00) Active confirmed Check lipid and liver panel. Low-cholesterol diet. Problem Muscle pain (46577481) Myalgia, unspecified site (M79.10) Active confirmed Briefly discussed fibromyalgia with patient. Based on brief interview she does appear to meet criteria but no official diagnosis has been made yet. Would like to further discuss this with patient at future visits to see if we can get her off of Flexeril. Will refill Flexeril today. Problem Inflammatory disorder of breast (139689628) Mastitis without abscess (N61.0) Active confirmed Improving. Will order screening mammogram at this time which patient requested today. No prior screening in the past. Maternal grandmother w/ hx of breast cancer. Problem Lump in upper inner quadrant of left breast (finding) (382643631997263) Unspecified lump in the left breast, upper inner quadrant (N63.22) Active confirmed Mammogram ordered today. Problem Prediabetes (937461180) Prediabetes (R73.03) Active confirmed Problem COVID-19 (067677304) COVID-19 (U07.1) Active confirmed PCR testing today is negative. Problem Esophagitis (disorder) (95489514) Esophagitis, unspecified without bleeding (K20.90) Active confirmed Continue Protonix and Carafate. Problem Headache (29911379) Headache, unspecified (R51.9) Active confirmed Uncontrolled. Patient [...] Exposure to acute respiratory syndrome coronavirus 2 (415896114) Contact with and (suspected) exposure to COVID-19 (Z20.822) Active confirmed Problem Depression (835969885) Depression, unspecified (F32.A) Active confirmed Followed by Psychiatry. Problem Low back pain (452889614) Low back pain, unspecified (M54.50) Active confirmed Urinalysis negative for blood, low suspicion for migrating kidney stones. Seems musculoskeletal given tenderness on exam and exacerbated pain with certain movements. Recommend continuing Tylenol for pain relief. Also recommend stretching exercises. Problem Acute cough (7342105233647459 04) Acute cough (R05.1) Active confirmed PCR negative for COVID, flu, RSV. Given short duration of symptoms, Patient advised to treat symptomatically and follow-up if no improvement over the course of 7 to 10 days. Problem Cough (finding) (20993984) Cough, unspecified (R05.9) Active confirmed Isolate until PCR results become available. This does appear viral. Discussed OTC medications for symptomatic relief. Educated patient on viral vs bacterial infections and use of antibiotics. Return precautions given. Patient advised to speak with a medical provider about next steps if they do test positive. Problem Post-acute COVID-19 (disorder) (9708025280) Post COVID-19 condition, unspecified (U09.9) Active confirmed Symptoms consistent with long covid. Educated that these symptoms could last for weeks-months due to COVID-19. Continue to stay hydrated and drink plenty of fluids, stay active. Can treat symptomatically if needed. Problem Obese class III (finding) (271333473) Obesity, class 3 (E66.813) Active confirmed Encouraged heart healthy diet modifications and increased exercise of moderate intensity 3-4 times per week as tolerated. Reviewed the numerous benefits of reducing weight. Problem Panic disorder (764096169) Panic disorder [episodic paroxysmal anxiety] without agoraphobia [...] that she is seeing. She has contacted [facility]. I have advised her that she also has an appointment with her PCP on Friday. Problem Body mass index 40+ - severely obese (378187169) Body mass index (BMI) 45.0-49.9, adult (Z68.42) Active confirmed Problem Body mass index 40+ - severely obese (785943865) Body mass index (BMI) 40.0-44.9, adult (Z68.41) Active confirmed Problem Candidiasis (55765883) Candidiasis, unspecified (B37.9) Inactive confirmed Patient contacts [...] prescription for fluconazole. Problem Hypertensive heart failure (48665214) Hypertensive heart disease with heart failure (I11.0) Inactive confirmed Continue current treatment. Clinically doing well. Problem Seizure (31531745) Unspecified convulsions (R56.9) Inactive confirmed See HPI. Keep scheduled follow up appointment with [facility]. Will allow them to further drive management of this. 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 (752718560) snf (current) use of insulin (Z79.4) Inactive confirmed Vital Signs Heart Rate 90 /min 11/04/2024 Temperature 98.40 degrees Fahrenheit 11/04/2024 Height-cm 162.56 cm 11/04/2024 Oximetry 97 % 11/04/2024 Blood pressure diastolic 84 mm Hg 11/04/2024 Weight-kg 108.41 kg 11/04/2024 Height 64.00 in 11/04/2024 Blood pressure systolic 122 mm Hg 11/04/2024 Weight 239.0000 lbs 11/04/2024 BMI 41.02 kg/m2 11/04/2024 Encounters Encounter Location Date Provider Diagnosis [facility] [address] [place] [address] 08/02/2024 Sunni Ramon [facility] [address] [place] [address] 09/06/2024 Sunni Ramon [facility] [address] [place] [address] 10/02/2024 Benedictojustin Talley [facility] [address] [place] [address] 10/05/2024 Sunni Ramon [facility] [address] [place] [address] 10/14/2024 Sunni Ramon [facility] [address] [place] [address] 11/04/2024 Sunni Ramon [facility] [address] [place] [address] 02/26/2025 Provider Migration [facility] [address] [place] [address] 02/27/2025 Provider Migration [facility] [address] [place] [address] 05/14/2025 Provider Migration [facility] [address] [place] [address] 05/15/2025 Provider Migration Plan Of Treatment No Information Insurance Providers Payer Name Payer Address Payer Phone Subscriber Number Group Number Insured Name Patient Relationship to Insured Coverage Start Date Coverage End Date [employer] [address] [address] [place] [address] [id number] Georgia Swanson Self - patient is the insured 1 Medicaid [address] [address] [place] [address] [id number] Georgia Swanson Self - patient is the [...]
--- OUTSIDE RECORDS SUMMARY | 2025-06-27 17:22 | XMS_ITS | Patient Health Record ---
Author Organization [facility] Address [address] [place] [address] Care Team Providers Care Breaster Name Role Phone Benedicto Talley MD Unavailable Unavailable DR. Benedicto Talley Unavailable [phone] Migration, Provider Unavailable Unavailable Reason For Referral [...] for high cholesterol; Duration: 90 [facility]* [...] every 12 weeks; Duration: 0 *Reorder from [facility] for eRx and Interaction Alerts* [...] for neck tension; Duration: 90 *Reorder from [facility] for eRx and Interaction Alerts* 11/04/2024 Active Ferrous Sulfate 325 (65 Fe)MG Ferrous Sulfate 325 (65 Fe)MG, 1 tablet Tablet daily or every other day # 30, 11/09/2019, Ref. x2. Active Oral daily or every other day; Duration: 30 *Pick strength-form from [facility] for eRX* 11/09/2019 Active cholecalciferol (vitamin D3) 50 mcg(2,000 uni cholecalciferol (vitamin D3) 50 mcg(2,000 uni, 1 (one) Tablet daily # 30, 11/20/2022, No Refill. Active oral daily; Duration: 30 *Reorder from [facility] for eRx and Interaction Alerts* 11/20/2022 Active Vitamin B-12 1000 MCG Tablet Vitamin B-12 1000MCG, 1 (one) Tablet daily # 30, 04/27/2021, No Refill. Active Oral daily; Duration: 30 04/27/2021 Active Ozempic 2 mg/dose(8 mg/3 mL Ozempic( 2 mg/dose(8 mg/3 mL subcutaneous 2 mg one weekly ) Active -Hx Entry subcutaneous one weekly; Duration: 0 *Reorder from [facility] for eRx and Interaction Alerts* 11/04/2024 Active PROzac 20 MG Capsule PROzac 20mg, 1 Capsule daily # 90, 12/04/2024, No Refill. Active Oral daily; Duration: 90 12/04/2024 Active Nurtec ODT 75mg Nurtec ODT 75mg, 1 (one) Tablet daily at onset of migraine headache # 8, 01/09/2024, Ref. x2. Active oral daily at onset of migraine headache; Duration: 30 *Reorder from [facility] for eRx and Interaction Alerts* [...] Entry Oral daily; Duration: 30 *Reorder from [facility] for eRx and Interaction Alerts* 04/27/2021 Active Immunizations Vaccine [place] [id number] Tdap OTH Other/Miscellaneous 10/05/2024 Pending ,ImmunizationName ,' : Tdap (7 years and up) (49817) ,Status,' : Ordered Source Location: <Undefined> Influenza, unspecified formulation IM Intramuscular 03/10/2024 Administered ,ImmunizationNa me ,' : Influenza, inj, MDCK, preservative free, q.valent (25775) ,Status,' : Complete Social History Social History [...] Problem Viral infection of the digestive tract (147842621) Viral intestinal infection, unspecified (A08.4) Active confirmed This appears viral. Discussed OTC medications for symptomatic relief. Educated patient on viral vs bacterial infections and use of antibiotics. Provided return precautions. Reminded patient of the importance of hygiene to prevent transmission. Please re-check if no improvement in 1 week OSIW. Problem Candidiasis (16495390) Candidiasis, unspecified (B37.9) Inactive confirmed Patient contacts [...] prescription for fluconazole. Problem Iron deficiency anemia (05837237) Iron deficiency anemia, unspecified (D50.9) Active confirmed Continue OTC Ferrous Sulfate 325 mg daily. Will check CBC w/ diff and iron studies. Problem Vitamin B>12< deficiency anaemia (34453224) Vitamin B12 deficiency anemia, unspecified (D51.9) Active confirmed Problem Type II diabetes mellitus without complication (306812512) Type 2 diabetes mellitus without complications (E11.9) Active confirmed Managed by endocrinology. A1c controlled at this time. Problem Vitamin A deficiency (24925053) Vitamin A deficiency, unspecified (E50.9) Active confirmed Patient states she has recently been diagnosed with Vitamin A deficiency by her cutter finisher and started on OTC supplements about 6 weeks ago. Will check Vitamin A levels. Discussed dangers associated with fat-soluble vitamins and not going over recommended daily amount. Problem Vitamin B deficiency (82161772) Deficiency of other specified B group vitamins (E53.8) Active confirmed Rechecking labs today Problem Vitamin D deficiency (34581011) Vitamin D deficiency, unspecified (E55.9) Active confirmed Labs pending. Will call patient with results and treat as indicated. Continue vitamin Vitamin D3, 2000 units a day. Problem Morbid obesity (disorder) (288919308) Morbid (severe) obesity due to excess calories (E66.01) Active confirmed Encouraged heart healthy diet modifications and increased exercise of moderate intensity 3-4 times per week as tolerated. Reviewed the numerous benefits of reducing weight. Problem Hyperlipidemia (22479771) Hyperlipidemia, unspecified (E78.5) Active confirmed Rechecking lipid panel. Continue atorvastatin 40 mg daily. Encouraged lifestyle modification in diet and exercise regimen to reduce cholesterol. - Continue lowering intake of high-saturated fat in diet. - Goal lipid levels: Total cholesterol: < 170 Triglycerides: < 150 HDL: > 40 LDL: < 70 Problem Bipolar disorder (20865671) Bipolar disorder, unspecified (F31.9) Active confirmed Follow up with her psychiatrist and her therapist. Problem Anxiety disorder (604391218) Anxiety disorder, unspecified (F41.9) Active confirmed Continue Prozac. Patient also has Xanax available as needed. Will have our office reach out to [facility] psychiatry to inquire about follow-up. Will refer elsewhere if needed for psychiatry services. Problem Post-traumatic stress disorder (76763787) Post-traumatic stress disorder, unspecified (F43.10) Active confirmed Patient started on Zoloft 50 mg daily. Psychiatrist commented he may consider adding Minipress in case there is no improvement in nightmares. Continue to monitor. Problem Epilepsy (03529885) Epilepsy, unspecified, not intractable, without status epilepticus (G40.909) Active confirmed Agreed to refill one more time in light of the COVID-19 pandemic, however patient needs to get all future refills of her Ativan from her Neurologist who initially prescribed the medication. Clear per [employer] database. Problem Migraine without aura, not refractory (disorder) (091862938) Migraine, unspecified, not intractable, without status migrainosus [...] Patient given strict return precautions. Problem Insomnia (011465548) Insomnia, unspecified (G47.00) Active confirmed Problem Obstructive sleep apnea syndrome (disorder) (58932579) Obstructive sleep apnea (adult) (pediatric) (G47.33) Active confirmed Patient has still not heard from [facility] to schedule sleep study. Will refer to [place] upon patient request. Problem Carpal tunnel syndrome (89575875) Carpal tunnel syndrome, right upper limb (G56.01) Active confirmed Tendonitis vs CTS. Advised patient she will need to stop crocheting at least for now and will place her in a CTS splint with a thumb stabilizer to help with trigger thumb. Re-check in 2 weeks if no improvement. . Problem Polyneuropathy (42115687) Polyneuropathy, unspecified (G62.9) Active confirmed Problem Benign intracranial hypertension (33650189) Benign intracranial hypertension (G93.2) Active confirmed follow-up with neurology. Problem Compression of brain (39226004) Compression of brain (G93.5) Active confirmed Diagnosed in 2007. Followed by [facility] neurology. Problem Visual disturbance (18438148) Unspecified visual disturbance (H53.9) Active confirmed Called [facility] for suggestion on patients complaint of worsening subjective double vision, as she already has appt shceudled with her office for same complaint made at visit last week. Her current appointment scheduled for 12/05 was moved to 11/28 per [facility] and recommended Ms. Kahn contact their office if worsening eye related symptoms occur for advice/recommen dation. Patient made aware. Problem Otitis media (79753086) Otitis media, unspecified, left ear (H66.92) Active confirmed Starting Cefedinir x 5 days. Recommend OTC Tylenol +/- Motrin for pain and fever control. Return in 2-3 days if no improvement or worsening of pain occurs. Problem Otalgia of right ear (finding) (5371425151) Otalgia, right ear (H92.01) Active confirmed Physical exam unremarkable with no signs of infection. Problem Bilateral otalgia (107582547) Otalgia, bilateral (H92.03) Active confirmed Problem Pain of ear (finding) (980770592) Otalgia, unspecified ear (H92.09) Active confirmed Physical exam unremarkable, with no sign of otitis media or externa. Likely due to seasonal allergies/conge stion causing fluid to build behind TM. Recommended OTC antihistamine. Return as needed for increased pain, fever, or onset of ear drainage. Problem Essential hypertension (44680899) Essential (primary) hypertension (I10) Active confirmed Controlled off of antihypertensiv e at this time. Problem Hypertensive heart failure (79415690) Hypertensive heart disease with heart failure (I11.0) Inactive confirmed Continue current treatment. Clinically doing well. Problem Diastolic heart failure (249287592) Unspecified diastolic (congestive) heart failure (I50.30) Active confirmed Patient reports normal echo by cardiology. No follow up scheduled. Problem Heart failure (64238004) Heart failure, unspecified (I50.9) Active confirmed Stable. Continue current treatment. Follow up with cardiology. Problem Heart disease (16614847) Heart disease, unspecified (I51.9) Active confirmed Echo 12/24/16: quality of study fair, EF 55-60%, nor LV size & fxn, no RWMA. Impaired LV relaxation / grade 1 diastolic dysfxn, trace TR On Lasix. Referring to cardiology. Problem Orthostatic hypotension (11598033) Orthostatic hypotension (I95.1) Active confirmed Orthostatic vitals performed: Laying - Blood pressure 124/74, HR 102 Standing - Blood pressure 118/60, HR 112 After standing for 2 minutes - patient became dizzy and had to sit down. BP 124/70. Findings consistent with orthostatic hypotension. Encouraged patient to drink plenty of fluids, and to avoid standing up too quickly. Problem Acute sinusitis (80580887) Acute sinusitis, unspecified (J01.90) Active confirmed Doxycycline 100 mg 1 p.o. b.i.d. x10 days. Recheck if not better in 3 to 4 days or sooner if worsening. Problem Acute pharyngitis (790864945) Acute pharyngitis, unspecified (J02.9) Active confirmed Rapid strep negative. Problem Acute upper respiratory infection (94287395) Acute upper respiratory infection, unspecified (J06.9) Active confirmed Start daily oral antihistamine and Flonase intranasal therapy for nasal congestion. Also recommend NetiPot sinus rinses, Mucinex for congestion. Recommend throat coat tea, lozenges, Chloraseptic spray for sore throat. If worsening throat pain, swelling in throat, muffling of voice please return to clinic. Problem Acute bronchitis (99557662) Acute bronchitis, unspecified (J20.9) Active confirmed Recheck if not better in 3 to 4 days or sooner if worsening. Problem Chronic sinusitis (63157058) Chronic sinusitis, unspecified (J32.9) Active confirmed Likely viral. Encouraged patient to stay well hydrated and rest as needed. May take benzonatate for cough. Problem Exacerbation of asthma (606719672) Unspecified asthma with (acute) exacerbation (J45.901) Active confirmed Refilling albuterol MDI and starting prednisone. Call 911 for difficulty breathing Problem Uncomplicated asthma (disorder) (748419917) Unspecified asthma, uncomplicated (J45.909) Active confirmed Continue Trelegy daily and albuterol as needed. Sending prescription for spacer chamber. Patient encouraged to increase albuterol inhaler use to every 4-6 hours for the next 2 days and then resume as needed. Problem Gastro-esophageal reflux disease without esophagitis (045252442) Gastro-esophage al reflux disease without esophagitis (K21.9) Active confirmed Avoid NSAIDs. Continue Omeprazole once daily. Patient has known history of reucrrent gastric ulcers secondary to chronic NSAID use. Problem Gastric ulcer (656655492) Gastric ulcer, unspecified as acute or chronic, without hemorrhage or perforation (K25.9) Active confirmed Continue to avoid use of NSAIDs. Repeat EGD in 2020, per GI recommendations . Problem Non-infective enteritis and colitis (276493971) Noninfective gastroenteritis and colitis, unspecified (K52.9) Active confirmed Symptoms likely due to gastroenteritis . VSS, no signs of volume depletion. No fevers, severe pain, bloody/mucoid stools, tolerating fluid PO intake today, and estimated BMs/day < 6. Discussed conservative treatment with symptomatic management, rehydration and bland diet advance as tolerated. Discussed proper hygiene and provided return/ED precautions to patient. Problem Fatty liver (467015278) Fatty (change of) liver, not elsewhere classified [...] alcohol, low saturated fat diet. Problem Urticaria (46902367) Urticaria, unspecified (L50.9) Active confirmed Improving w/ Lyndsey once daily. Problem Osteoarthritis (161784936) Unspecified osteoarthritis, unspecified site (M19.90) Active confirmed Desires to continue use of PRN Naproxen. Will Rx Vimovo for the patient to provide GI protection, however cautioned the patient about regular use of this medication given her hx of gastritis in the past secondary to NSAIDs. Patient agrees with plan. Problem Pain in wrist (72603915) Pain in right wrist (M25.531) Active confirmed Possibly secondary to carpal tunnel syndrome. Recommended patient to wear wrist splint for the next 2 weeks. Try conservative treatment at home including ice/heat, Tylenol as needed for pain. Patient given a written prescription for right wrist splint to coal picker at pharmacy. Problem Pain in wrist (51310815) Pain in left wrist (M25.532) Active confirmed [...] pain persist. Problem Disorder of wrist joint (789828693) Other specified joint disorders, unspecified wrist (M25.839) Active confirmed See above fo r details. Problem Lumbar radiculopathy (985460685) Radiculopathy, lumbar region (M54.16) Active confirmed MRI L-Spine w/o contrast ordered at last visit, awaiting medicaid approval at this time. Continue PT sessions 2-3x/week with [facility]. Has few weeks left remaining. Problem Spasm (52653070) Other muscle spasm (M62.838) Active confirmed Refilling Flexeril. Back pain appears chronic in nature. Recommend heat and ice massage with gentle stretching for back pain. Problem Acquired trigger finger (1856052) Trigger thumb, right thumb (M65.311) Active confirmed [...] would likely be sufficient. Problem Achilles bursitis (732768972) Achilles tendinitis, unspecified leg (M76.60) Active confirmed Follow up with [facility]. Problem Calculus of kidney (71048628) Calculus of kidney (N20.0) Active confirmed Recommend following back up with Urology for further evaluation. Problem Urinary tract infectious disease (disorder) (86247707) Urinary tract infection, site not specified (N39.0) Active confirmed Patient denies symptom improvement on Macrobid, switching to Bactrim DS. Urine culture sent. Increase fluid intake and urine output, holding urine no longer than two hours if possible before voiding. Problem Abscess of vulva (34221972) Abscess of vulva (N76.4) Active confirmed Followed by [facility] - Continue Bactrim DS 1 tablet BID as directed. Improved s/p I&D performed at last visit. Keep scheduled f/u appt with [facility] for next week. Problem Excessive and frequent menstruation (313467149) Excessive and frequent menstruation with regular cycle (N92.0) Active confirmed Patient is trying to concieve. Treating for SHIKHA at this time, likely due to menorrhagia. Problem Irregular menstruation (77471378) Irregular menstruation, unspecified (N92.6) Active confirmed HCG negative. Problem Abnormal uterine bleeding (49193591677370) Abnormal uterine and vaginal bleeding, unspecified (N93.9) Active confirmed Refill of Provera 20 mg TID x 7 days for AUB. Follow up appt scheduled with [facility] in November 2021. Problem Tachycardia (9200870) Tachycardia, unspecified (R00.0) Active confirmed - Follow up with Cardiology as soon as possible. Problem Elevated blood pressure reading without diagnosis of hypertension (982898792) Elevated blood-pressure reading, without diagnosis of hypertension [...] in 1 month. Problem Shortness of breath (953165121) Shortness of breath (R06.02) Active confirmed Duoneb given with marginal improvement in symptoms. Sending patient to ED for PE work-up. She declines EMS but states that she will drive directly to ED. Charge nurse called. Vital signs stable at discharge. Problem Chest pain (02595624) Other chest pain (R07.89) Active confirmed Recommended follow up with [facility]. Problem Chest pain (80862027) Chest pain, unspecified (R07.9) Active confirmed Awaiting referral to Cardiology at this time. Problem Epigastric pain (47968107) Epigastric pain (R10.13) Active confirmed New abdominal pain since starting Ozempic. Will check labs today. Will call patient with results and treat as indicated. Problem Lower abdominal pain (07955259) Lower abdominal pain, unspecified (R10.30) Active confirmed Recommended checking additional labs such as CBC, CMP, but patient denied at this time. If symptoms continue, recommended she follow up for labs. Problem Abdominal pain (62235540) Unspecified abdominal pain (R10.9) Active confirmed Updating labs today. Checking also pancreatic enzymes. Problem Nausea (244319778) Nausea (R11.0) Active confirmed Nausea is associated with Ozempic injections. Resending prescription for Zofran to her pharmacy. Patient encouraged to eat smaller and more frequent meals. Problem Vomiting (397517841) Vomiting, unspecified (R11.10) Active confirmed Patient tried Zofran with no relief. Will start Phenergan for nausea/vomiting . The patient is aware of the sedative effects of this medication and will not drive or drink alcohol while taking it. Problem Dysphagia (29170567) Dysphagia, unspecified (R13.10) Active confirmed Follow-up with GI. Problem Diarrhea (93516080) Diarrhea, unspecified (R19.7) Active confirmed Likely due to recent antibiotic use - Will send stool culture + C. diff EUGENIA. Avoid Immodium at this time as bacterial etiology can not be excluded. Increase PO hydration at home. Will Rx Bentyl for abdominal cramping as needed. Problem Paresthesia (finding) (09940796) Paresthesia of skin (R20.2) Active confirmed Followed by Neurology. Continue Gabapentin 300 mg at bedtime. Problem Abnormal gait (91273585) Unsteadiness on feet (R26.81) Active confirmed Referring for PT. Problem Dysuria (63875670) Dysuria (R30.0) Active confirmed Urinalysi s positive for excess glucose, negative for blood leukoesterase or nitrites. Sending urine sample for culture and sensitivity. Will call patient with results and treat as indicated. Problem Unspecified symptoms and signs involving the genitourinary system (R39.9) Active confirmed Problem Dizziness and giddiness (431460249) Dizziness and giddiness (R42) Active confirmed Patient does have nystagmus and ear fullness. Will try her on meclizine for symptoms of vertigo. Also recommend Zyrtec and Flonase however patient reports that she is unable to tolerate Flonase. Follow through with cardiology referral. Problem Fever (256842981) Fever, unspecified (R50.9) Active confirmed May be related to cellulitis on her right breast, which started approx. 1 week ago. Consider right breast mammogram vs. ULS if no improvement in 2-3 days. Follow up recommended. Problem Malaise (363812610) Other malaise (R53.81) Active confirmed Continue to follow up with PT for strengthening exercises. Problem Fatigue (63128904) Other fatigue (R53.83) Active confirmed Multifactorial in nature given her comorbidities and sedentary lifestyle. Chronic fatigue. Problem Syncope and collapse (358043187) Syncope and collapse (R55) Active confirmed Cardiology referral pending per [facility] records. ED precautions reviewed. Patient encouraged to check blood sugar if she feels presyncope symptoms. Problem Seizure (72093502) Unspecified convulsions (R56.9) Inactive confirmed See HPI. Keep scheduled follow up appointment with [facility]. Will allow them to further drive management of this. Problem Localized enlarged lymph nodes (068599782) Localized enlarged lymph nodes (R59.0) Active confirmed Mammogram in Jul 2020 - BIRADS2. Will perform ULS of the swollen palpable area in the left supraclavicular region for further evaluation. Possibly related to recent COVID-19 vaccine in the L. deltoid from 3 weeks ago. Problem Symptom: generalized (877455451) Other general symptoms and signs (R68.89) Active [...] reduce viral spread. Problem Blood chemistry abnormal (455130959) Other specified abnormal findings of blood chemistry (R79.89) Active confirmed Redrawing liver panel and hepatitis labs today. Suspect Tylenol caused LFT elevation. Patient to avoid Tylenol and EtOH going forward. Will contact patient with results of lab work. Will consider NAFLD workup if LFTs remain elevated despite discontinuing Tylenol use. Problem Glycosuria (18433951) Glycosuria (R81) Active confirmed UA with ++++ glucose, however FSBS 316 in the office. See diabetes note above. Problem Adult health examination (465161525) Encounter for general adult medical examination without abnormal findings (Z00.00) Active confirmed Discussed appropriate health maintenance and prevention topics with patient. Reviewed vaccinations and screening tests. Discussed healthy lifestyle habits to prevent disease and promote wellbeing. Labs pending, will call patient with results and treat as indicated. Re-check for annual PE in 1 year. Problem History and physical examination, follow-up (523942325) Encounter for follow-up examination after completed treatment for conditions other than malignant neoplasm (Z09) Active confirmed see HPI Problem Screening for malignant neoplasm of cervix (599410890) Encounter for screening for malignant neoplasm of cervix (Z12.4) Active confirmed History of multiple abnormal paps. Refer to [facility] [place] to updating Pap upon patient request. Problem Vaccination given (621627888) Encounter for immunization (Z23) Active confirmed Tdap given by [facility] in Left deltoid Lot:[id number] EXP: 02/23/27 Tdap updated today. Problem test equivocal (691338933) Encounter for test, result unknown (Z32.00) Active confirmed Urine HCG negative. Will perfrom serum qualatative to confirm (patient requested). Avoid restarting Phentermine until lab confirms not . Patient agrees with the plan. Problem test positive (692019991) Encounter for test, result positive (Z32.01) Active confirmed Will perform serum HCG qual/quant performed, since our office is out of urine HCG test at this time. Starting vitamin once daily. Follow up with [facility] if confirmed. Problem care (668421401) Encounter for supervision of normal , unspecified, unspecified trimester (Z34.90) Active confirmed Problem Dietary management surveillance (979771472) Dietary counseling and surveillance (Z71.3) Active confirmed [...] can cause defects. . Problem Counseling requested (342974656) Persons encountering health services in other specified circumstances (Z76.89) Active confirmed Although phentermine may be an okay option for her should she continue to lose weight, in light of recent events, advised that we will hold this prescription for now. Encouraged her to continue weight loss and exercise and after her neurology evaluation consider restarting or discussing an alternative option. Problem Health status (143709648) Other specified health status (Z78.9) Active confirmed Followed by [facility] specialist. Currently on Provera but plans to start Clomid later this year. 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 (983367057) [facility] (current) use of insulin (Z79.4) Inactive confirmed Problem History of urinary stone (297641344) Personal history of urinary calculi (Z87.442) Active [...] Urology on 01/14. Problem Pure hypercholesterole susie (240457941) Pure hypercholestero lemia, unspecified (E78.00) Active confirmed Check lipid and liver panel. Low-cholesterol diet. Problem Muscle pain (61182189) Myalgia, unspecified site (M79.10) Active confirmed Briefly discussed fibromyalgia with patient. Based on brief interview she does appear to meet criteria but no official diagnosis has been made yet. Would like to further discuss this with patient at future visits to see if we can get her off of Flexeril. Will refill Flexeril today. Problem Inflammatory disorder of breast (276600475) Mastitis without abscess (N61.0) Active confirmed Improving. Will order screening mammogram at this time which patient requested today. No prior screening in the past. Maternal grandmother w/ hx of breast cancer. Problem Lump in upper inner quadrant of left breast (finding) (956768958771531) Unspecified lump in the left breast, upper inner quadrant (N63.22) Active confirmed Mammogram ordered today. Problem Prediabetes (381825618) Prediabetes (R73.03) Active confirmed Problem COVID-19 (664834132) COVID-19 (U07.1) Active confirmed PCR testing today is negative. Problem Esophagitis (disorder) (82331609) Esophagitis, unspecified without bleeding (K20.90) Active confirmed Continue Protonix and Carafate. Problem Headache (65471030) Headache, unspecified (R51.9) Active confirmed Uncontrolled. [facility] not [facility] who have recommended neurology consult prior to moving forward with treatment modalities. Resending Flexeril since this has helped somewhat, however I would not recommend this as a custodial solution. Problem Encounter for screening for COVID-19 (Z11.52) Active confirmed Negative rapid COVID-19/RSV/Fl u via PCR today. Results reviewed with patient. Problem Exposure to acute respiratory syndrome coronavirus 2 (112510616) Contact with and (suspected) exposure to COVID-19 (Z20.822) Active confirmed Problem Depression (305849668) Depression, unspecified (F32.A) Active confirmed Followed by Psychiatry. Problem Low back pain (306545643) Low back pain, unspecified (M54.50) Active confirmed Urinalysis negative for blood, low suspicion for migrating kidney stones. Seems musculoskeletal given tenderness on exam and exacerbated pain with certain movements. Recommend continuing Tylenol for pain relief. Also recommend stretching exercises. Problem Acute cough (1007146254541161 04) Acute cough (R05.1) Active confirmed PCR negative for COVID, flu, RSV. Given short duration of symptoms, Patient advised to treat symptomatically and follow-up if no improvement over the course of 7 to 10 days. Problem Cough (finding) (93319390) Cough, unspecified (R05.9) Active confirmed Isolate until PCR results become available. This does appear viral. Discussed OTC medications for symptomatic relief. Educated patient on viral vs bacterial infections and use of antibiotics. Return precautions given. Patient advised to speak with a medical provider about next steps if they do test positive. Problem Post-acute COVID-19 (disorder) (0014225312) Post COVID-19 condition, unspecified (U09.9) Active confirmed Symptoms consistent with long covid. Educated that these symptoms could last for weeks-months due to COVID-19. Continue to stay hydrated and drink plenty of fluids, stay active. Can treat symptomatically if needed. Problem Obese class III (finding) (632850747) Obesity, class 3 (E66.813) Active confirmed Encouraged heart healthy diet modifications and increased exercise of moderate intensity 3-4 times per week as tolerated. Reviewed the numerous benefits of reducing weight. Problem Body mass index 40+ - severely obese (288061056) Body mass index (BMI) 40.0-44.9, adult (Z68.41) Active confirmed Problem Body mass index 40+ - severely obese (946340943) Body mass index (BMI) 45.0-49.9, adult (Z68.42) Active confirmed Problem Panic disorder (410461747) Panic disorder [episodic paroxysmal anxiety] without agoraphobia [...] that she is seeing. She has contacted [facility]. I have advised her that she also has an appointment with her PCP on Friday. Vital Signs Heart Rate 90 /min 11/04/2024 Temperature 98.40 degrees Fahrenheit 11/04/2024 Height-cm 162.56 cm 11/04/2024 Oximetry 97 % 11/04/2024 Blood pressure diastolic 84 mm Hg 11/04/2024 Weight-kg 108.41 kg 11/04/2024 Height 64.00 in 11/04/2024 Blood pressure systolic 122 mm Hg 11/04/2024 Weight 239.0000 lbs 11/04/2024 BMI 41.02 kg/m2 11/04/2024 Encounters Encounter Location Date Provider Diagnosis [facility] [address] [place] [address] 08/02/2024 Provider Migration [facility] [address] [place] [address] 09/06/2024 Provider Migration [facility] [address], [place] [address] 10/02/2024 Benedicto Talley [facility] [address] [place] [address] 10/05/2024 Provider Migration [facility] [address] [place] [address] 10/14/2024 Provider Migration [facility] [address] [place] [address] 11/04/2024 Provider Migration [facility] [address] [place] [address] 03/05/2025 Provider Migration [facility] [address] [place] [address] 03/06/2025 Provider Migration Plan Of Treatment No Information Insurance Providers Payer Name Payer Address Payer Phone Subscriber Number Group Number Insured Name Patient Relationship to Insured Coverage Start Date Coverage End Date [employer] [address] [address] [place] [address] [id number] Georgia Swanson Self - patient is the insured 1 Medicaid [address] [address] [place] [address] [phone] [id number] Georgia Swanson Self - patient is the [...]
--- OUTSIDE RECORDS SUMMARY | 2025-06-27 17:23 | XMS_ITS | Encounter Summary ---
Author Organization [facility] ([facility]) Address [address] [place] [address] Care Team Providers Care Commercial Instructor Supervisor Name Role Phone Naila Vallejo MD Primary Care Provider + Unassigned, Doctor RAMIREZ Primary Care Provider Unav ailable Mehnaz Obando NP Primary Care Provider [phone] [place] Joseph Srinivasan Primary Care Provide r Aislinn Merlos Primary Care Provider [phone] Unassigned, Doctor RAMIREZ Primary Care Provider Unav ailable Reason for Visit * Reason Comments Refill Request Encounter Details Date Type Department Care Team (Late st Contact Info) Description 03/28/2016 Refill [facility] [address] [place], [place] [address] Antoine Briceno MD [address] [place] [address] Refill Request Social History Tobacco Use Types [...] documented as of this encounter Care Teams Commercial Instructor Supervisor Relationship Specialty Start Date End Date Naila Vallejo MD PCP - General Family Medicine 09/20/13 04/01/17 Unassigned, MD Daniella PCP - General 04/02/17 09/09/17 Mehnaz Obando NP PCP - General Internal Medicine 09/10/17 03/01/19 Joseph Moraes [address] [place] [address] PCP - General Group provider 03/02/19 04/25/19 Aislinn Merlos PA [address] [place] [address] [place] [address] PCP - General Family Medicine [...] prosecute any alcohol or drug abuse patient. [facility] [employer] (a.k.a. [facility])
--- OUTSIDE RECORDS SUMMARY | 2025-06-27 17:23 | XMS_ITS | Encounter Summary ---
Author Organization [facility] ([facility]) Address [address] [place] [address] Care Team Providers Care Studio Camera Operator Name Role Phone Naila Vallejo MD Primary Care Provider + Unassigned, Doctor RAMIREZ Primary Care Provider Unav ailable Mehnaz Obando NP Primary Care Provider [phone] [place] Joseph Srinivasan Primary Care Provide r Aislinn Merlos Primary Care Provider [phone] Unassigned, Doctor RAMIREZ Primary Care Provider Unav ailable Reason for Visit * Reason Comments Refill Request Encounter Details Date Type Department Care Team (Late st Contact Info) Description 09/17/2015 Refill [facility] [address] [id number] Naila Vallejo MD [address] [place] [address] Refill Request Social History Tobacco [...] documented as of this encounter Care Teams Studio Camera Operator Relationship Specialty Start Date End Date Naila Vallejo MD PCP - General Family Medicine 09/20/13 04/01/17 Unassigned, MD Daniella PCP - General 04/02/17 09/09/17 Mehnaz Obando NP PCP - General Internal Medicine 09/10/17 03/01/19 Joseph Moraes [address] [place] [address] PCP - General Group provider 03/02/19 04/25/19 Aislinn Merlos PA [address] [place] [address] [place] [address] PCP - General Family Medicine [...] prosecute any alcohol or drug abuse patient. [facility] [employer] (a.k.a. [facility])
--- OUTSIDE RECORDS SUMMARY | 2025-06-27 17:23 | XMS_ITS | Encounter Summary ---
Author Organization [facility] ([facility]a. [facility]) Address [address] [place] [address] Care Team Providers Care Diamond Blender Name Role Phone Mehnaz Obando NP Primary Care Provider [phone] [place] Joseph Srinivasan Primary Care Provide r Aislinn Merlos Primary Care Provider [phone] Unassigned, Doctor Primary Care Provider Unav ailable Encounter Details Date Type Department Care Team (Late st Contact Info) Description 04/14/2018 Prep for Surgery [facility] - Urology Service [address] [facility] [address] [place] [address] Jefe Veliz MD [address] [place] [address] Social History Tobacco Use Types Packs/Day [...] DM, HLD. Surgical History: Ankle arth roscopy/surgery (16706) , Appendectomy , Caesarean section , Cholecystectomy , Hernia repair , Hysteroscopy dx sep proc (70929) , Kidney stone extraction , Removal of ovarian cyst(s) (36623) , Liver surgery procedure (22110):biopsy . Hospitalization/Major Diagnostic Procedure: Denies Past Hospitalization. [...] Glucose neg Bilirubin neg Ketones neg Specific [place] 1.010 Occult Blood trace- Intact pH 5.5 [...] documented as of this encounter Care Teams Diamond Blender Relationship Specialty Start Date End Date Mehnaz Obando NP PCP - General Internal Medicine 09/10/17 03/01/19 Joseph Moraes [address] [place] [address] PCP - General Group provider 03/02/19 04/25/19 Aislinn Merlos PA [address] [place] [address] [place] [address] PCP - General Family Medicine 04/26/19 03/10/22 Unassigned, DoctorMD [address] [place] [address] [place] [address] PCP - General Family Medicine 03/11/22 documented [...] prosecute any alcohol or drug abuse patient. [facility] [employer] (a[facility])
--- OUTSIDE RECORDS SUMMARY | 2025-06-27 17:23 | XMS_ITS | Encounter Summary ---
Author Organization [facility] (a[facility]a. [facility]) Address [address] [place] [address] Care Team Providers Care Radio Division Captain Name Role Phone Unassigned, Doctor Primary Care Provider Unav ailable Encounter Details Date Type Department Care Team (Late st Contact Info) Description 05/21/2024 Prep for Surgery [facility] - Orthopedics Service [address] [facility] [address] [place], [place] [id number] Maddi Villa PA-C [address] [place], [place] [id number] Social History Tobacco Use Types Packs/Day Years [...] documented as of this encounter Care Teams Radio Division Captain Relationship Specialty Start Date End Date Unassigned, [...] alcohol or drug abuse patient. [facility] [employer] (a.k.a. [facility])
--- OUTSIDE RECORDS SUMMARY | 2025-06-27 17:23 | XMS_ITS | Encounter Summary ---
Author Organization [employer] ([facility] [employer]) Address [address] [place] [address] Care Team Providers Care Subway Repair Supervisor Name Role Phone Naila Vallejo MD Primary Care Provider + Unassigned, Doctor RAMIREZ Primary Care Provider Unav ailable Mehnaz Obando NP Primary Care Provider [phone] [place] Joseph Srinivasan Primary Care Provide r Aislinn Merlos Primary Care Provider [phone] Unassigned, Doctor RAMIREZ Primary Care Provider Unav ailable Reason for Visit * Reason Comments Refill Request Encounter Details Date Type Department Care Team (Late st Contact Info) Description 04/27/2016 Refill [facility] [address] [place], [place] [id number] Antoine Briceno MD [address] [place] [address] Refill Request Social History Tobacco Use Types [...] documented as of this encounter Care Teams Subway Repair Supervisor Relationship Specialty Start Date End Date Naila Vallejo MD PCP - General Family Medicine 09/20/13 04/01/17 Unassigned, MD Daniella PCP - General 04/02/17 09/09/17 Mehnaz Obando NP PCP - General Internal Medicine 09/10/17 03/01/19 Joseph Moraes [address] [place] [address] PCP - General Group provider 03/02/19 04/25/19 Aislinn Merlos PA [address] [place] [address] [place] [address] PCP - General Family Medicine [...] drug abuse patient. [facility] [employer] (a.k[facility]a. [facility])
--- OUTSIDE RECORDS SUMMARY | 2025-06-27 17:23 | XMS_ITS | Encounter Summary ---
Author Organization [employer] (a.[facility]a. [facility] On license of [facility]) Address [address] [place] [address] Care Team Providers Care Penetration Tester Name Role Phone Aislinn Merlos Primary Care Provider [phone] Unassigned, Doctor Primary Care Provider Unav ailable Encounter Details Date Type Department Care Team (Late st Contact Info) Description 11/25/2021 Telemedicine [facility] [address] [place] [address] Nolberto Crystal AttendingMD [address] [place] [address] Social History Tobacco Use Types Packs/Day Years [...] Summary Report for Virtual Visit using the [employer] platform, electronically signed on Date [id number] with [...] (Self Reported) Prescription: diazePAM (Self Reported) Prescription: whiwfvblxn-lwbrzpdcueywj-inag (Self Reported) Prescription: cyanocobalamin 500 mcg Tab [...] (Self Reported) Prescription: esomeprazole (Self Reported) Prescription: [place] 5-325 mg Tab (Self Reported) Prescription: enoxaparin (Self Reported) Prescription: dextrose 50% in water (Self Reported) Prescription: diazePAM (Self Reported) Prescription: SYMBICORT INHL (Self Reported) Prescription: gxmtbwiswp-dsprsbtoohqpj-qeun (Self Reported) Prescription: sodium chloride (Self Reported) Prescription: oxyCODONE-acetaminophen (Self Reported) Prescription: dextrose 50% in water (Self Reported) Prescription: ywfjemydqn-qnubpyhghdher-nawj 50-325-40 mg Tab (Self Reported) Prescription: oxyCODONE-acetaminophen [...] (Self Reported) Prescription: Discharge Equipment: Insulin Pen [place] (Self Reported) Prescription: oxyCODONE-acetaminophen (Self Reported) Prescription: [...] (Self Reported) Prescription: Discharge Equipment: Insulin Pen [place] (Self Reported) Prescription: morphine (Self Reported) Prescription: [...] cyanocobalamin 500 mcg Tab (Self Reported) Prescription: XNOAodavmtndv-cthjqevbomn-qvijokff-scopoloamine (Self Reported) Prescription: fentaNYL (Self Reported) Prescription: [...] traMADoL-acetaminophen 37.5-325 mg Tab (Self Reported) Prescription: azudwuvags-cebqvcdzuhwfr-vmjl (Self Reported) Prescription: oxyCODONE-acetaminophen (Self Reported) Prescription: [...] 5-325 MG ORAL TAB (Self Reported) Prescription: IAFJKZFDEQ-WINIZZFGAXMEJ-NHMM 50-325-40 MG ORAL TAB (Self Reported) Prescription: EXENATIDE 5 MCG/0.02 ML SUBQ PNIJ (Self Reported) Prescription: HBWJEJBPDD-CYXBYVVKZCAKN-CACA 50-325-40 MG ORAL TAB (Self Reported) Prescription: [...] % IV BOLUS (Self Reported) Prescription: POTASSIUM NQLDTAE-F5-4.45%NACL 20 MEQ/L IV SOLP (Self Reported) Prescription: [...] 160-4.5 MCG/ACTUATION INHL HFAA (Self Reported) Prescription: LOGREPRWYO-YVMWZFKOLWZQP-IQFJ 50-325-40 MG ORAL TAB (Self Reported) Prescription: [...] ORAL TAB (Self Reported) External Note from [facility] Care Provider [phone], Dionicio Murrieta documented in this encounter Plan [...] documented as of this encounter Care Teams Penetration Tester Relationship Specialty Start Date End Date [place]isl[place] [address] PCP - General Family Medicine 04/26/19 03/10/22 Unassigned, DoctorMD [address] [place] [address] [place] [address] PCP - General Family Medicine 03/11/22 documented [...] alcohol or drug abuse patient. [facility] [email or web address] (a.k.a. [facility])
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
--- NOTE | 2025-06-27 17:28 | ED_ITS ---
HPI - Recheck/Abnormal Lab/Rx General: Chief Complaint: Recheck/Abnormal Lab/Rx Stated Complaint: stitch removal Time Seen by Provider: 06/27/25 17:28 History of Present Illness: Patient is a 50-year-old female that reports for suture removal. Original incident occurred on 06/20, when patient fell with a knife in her hand, and had a horizontal laceration to her left lateral mid neck. She returned on 06/23 due to protruding, yellow draining area that was found to be a seroma. She has not had any fevers. She has have local discomfort, however it is tolerable. She has not been on a round of antibiotics with her recent seroma. She has applied some antibiotic ointment to this area. She has minimal localized redness. Related Data Home Medications ?Medication ?Instructions ?Recorded ?Confirmed fluoxetine 40 mg capsule 40 mg PO DAILY 06/06/2505/31 Previous Rx's ?Medication ?Instructions ?Recorded tizanidine 4 mg tablet 4 mg PO Q6H PRN muscle spast icity 06/20/25 #20 tabs cephalexin 500 mg capsule 500 mg PO QID 7 days #28 cap s 06/27/25 Allergies Allergy/AdvReac Type Severity Reaction Status Date / Time azithromycin Allergy Unknown Verified 06/27/25 17:23 duloxetine Allergy Unknown Verified 06/27/25 17:23 erythromycin base Allergy Unknown Verified 06/27/25 17:23 Gadolinium-Containing Allergy Unknown Verified 06/27/25 17:23 Contrast Medi influenza A (H1N1) virus Allergy Unknown Verified 06/27/25 17:23 vaccine [id number] 2008 (From influenza A (H1N1)) Iodinated Contrast Media Allergy Unknown Verified 06/27/25 17:23 lactase Allergy Unknown Verified 06/27/25 17:23 latex Allergy Unknown Verified 06/27/25 17:23 metoclopramide Allergy Unknown Verified 06/27/25 17:23 montelukast Allergy Unknown Verified 06/27/25 17:23 nitroglycerin Allergy Unknown Verified 06/27/25 17:23 NSAIDS (Non-Steroidal Allergy Unknown Verified 06/27/25 17:23 Anti-Inflamma Penicillins Allergy Unknown Verified 06/27/25 17:23 prochlorperazine Allergy Unknown Verified 06/27/25 17:23 shellfish derived Allergy Unknown Verified 06/27/25 17:23 tapentadol Allergy Unknown Verified 06/27/25 17:23 Review of Systems General: Reports: 10 or more systems reviewed and unremarkable except in HPI and below Const: Denies: fever(s) or chills Eyes: Denies: change in vision or blurry vision ENMT: Denies: throat pain, mouth pain, swelling of lips/tongue or disequilibrium Card: Denies: chest pain or palpitations Resp: Denies: dyspnea or productive cough GI: Denies: abdominal pain, nausea or vomiting : Denies: flank pain or difficulty voiding Musc: Reports: neck pain (States tolerable); Denies: back pain, extremity pain, joint pain or joint stiffness Skin/Breast: Reports: skin tenderness, skin swelling and other (Seromas not ed); Denies: rash or pruritus Neuro: Denies: headache(s), numbness in extremities, weakness in extremities or sensory changes Physical Exam Const: COMMON NORMALS: no acute distress GENERAL APPEARANCE: cooperative and comfortable ORIENTATION/CONSCIOUSNESS: Yes awake, Yes oriented to person, Yes oriented to place and Yes oriented to time HENMT: COMMON NORMALS: normocephalic, atraumatic and hearing grossly normal bilaterally HEAD & SCALP: normocephalic and atraumatic Neck/C-Spine: OTHER: Patient has a left mid lateral superior neck with seroma, dry skin, and surrounding sutures. Seroma is indurated underneath the sutures in place prior to removal. Resp: COMMON NORMALS: normal respiratory effort, No retractions, No use of accessory muscles and clear to auscultation bilaterally AUSCULTATION: clear to auscultation bilaterally Cardio: COMMON NORMALS: regular rate, regular rhythm and No murmurs present (Cardio) RATE: regular rate RHYTHM: regular rhythm GI: COMMON NORMALS: Soft to palpation and No hepatosplenomegaly present AUSCULTATION: Yes normoactive bowel sounds PALPATION: Yes Soft to palpation, No Tenderness to palpation present (GI), No Guarding due to palpation present (GI) and Yes No hepatosplenomegaly present Extremity: COMMON NORMALS: normal to inspection, capillary refill normal, no clubbing, cyanosis or edema, no calf tenderness and no pedal edema Neuro: SENSORIUM/ORIENTATION: Yes oriented to person, Yes oriented to place and Yes oriented to time Procedures Foreign Body Removal Time Out Performed: yes Site: left and other (neck) Description of foreign body: other (sutures) Sedation/Analgesia: none Technique: removal with forceps Confirmed by:: direct visualization Complications: none Post-procedure exam: awake, alert Neurovascular: normal distal pulse and other (Sutures removed x 6 on left side of neck without difficulty. Surrounding seroma noted) Course Vital Signs: Vital signs: Vital Signs Temperature 98.2 F 06/27/25 17:18 Pulse Rate 79 06/27/25 17:18 Blood Pressure 156/76 06/27/25 17:18 Pulse Oximetry 100 06/27/25 17:18 Oxygen Delivery Me thod Room Air 06/27/25 17:18 MDM - Recheck/Abnormal Lab/Rx Medical Decision Making Patient is a 50-year-old female that presents to the emergency room for suture removal. On 06/20, the left side of her neck, had two vertical sutures and 1 running suture. This was removed under direct visualization with pickups, and scissors x 6. She did have some embedded in the skin. This was complicated by seroma discovered on 06/23 from wound. Patient tolerated without issues or anesthesia. Will give patient cephalexin x 7 days, 4 times daily, for secondary infection with recent seroma, that appears to be slightly larger than previous measured on ultrasonography. Medical Records I reviewed the patient's medical records. Lab Data I reviewed the patient's lab results. No radiology studies performed this visit Discharge Plan Discharge Patient Disposition: Home Clinical Impression: Seroma complicating a procedure, Visit for suture removal Condition: Stable Prescriptions: New cephalexin 500 mg capsule 500 mg PO QID 7 Days Qty: 28 0RF No Action fluoxetine [Prozac] 40 mg Capsule 40 mg PO DAILY tizanidine 4 mg tablet 4 mg PO Q6H PRN (Reason: muscle spasticity) Qty: 20 0RF Rx Instructions: do not exceed 3 doses per 24 hrs Discharge Orders: Discharge ED (Routine); Ordered 06/27/25 Ordered By: Slime Garzon Discharge Diet: Usual diet Discharge Activity: Resume usual activity Patient Instructions: Seroma (DC), Stitches Removal (ED), Patient Portal & [facility] Instructions Activity Restrictions/Additional Instructions: - At the pharmacy: Cephalexin. Use as directed. Take a probiotic daily or use active culture yogurt to avoid infectious diarrhea - we discussed: Warm compresses to the left side of your neck. If you put a warm washcloth in a Ziploc bag and put it on your neck for 20 minutes, and repeat for 20 minutes. This should help with the seroma. Return to ED: If you have a fever greater than 100.4, redness in this area, increasing drainage. Thank you for choosing [facility] for your healthcare needs today. You have been screened and evaluated and felt safe for discharge. Health conditions do change or evolve sometimes and as such it is important that you follow up with your Primary Doctor to be re checked, 3-5 days is a general good time frame for follow up. You are always welcome to return to the ED for re assessment if your symptoms are worsening or you have new concerns Print Language: Sri Lankan Coding Level of Care Code ED Food And Nutrition Supervisor for Jasper Hester
== END 2025-06-27 18:05 | disposition home or self-care (01) ==
PROVIDERS: Emergency Provider Physician Assistant
DX: L76.34 Postprocedural seroma of skin and subcutaneous tissue following other procedure (principal); Z48.02 Encounter for removal of sutures
CPT/HCPCS: 99283